=== PATIENT | female | born 1955 | race Caucasian/White ===

== ENCOUNTER 2017-05-29 08:21 | Inpatient (IN) ==
[2017-05-29] MEDS ORDERED: 0.9 % Sodium Chloride 1,000 ML IVC ONE ×2 (08:36→11:41)
[2017-05-29] MEDS ORDERED: *HR* HYDROmorphone (PF) 1 MG/ML SYRINGE IVP ONE ×3 (08:41→11:38)
[2017-05-29] MEDS ORDERED: Ondansetron 4 MG/2 ML VIAL IVP ONE (08:41)
--- NOTE | 2017-05-29 08:45 | Emergency Department Note ---
Disposition Clinical Impression: Perforated diverticulum, Diverticulitis, Pneumoperitoneum Disposition: Admitted As Inpatient Condition: Fair Time of Disposition: 11:55 General Adult HPI - General Chief complaint: ED Abdominal Pain Stated complaint: RUQ abd pain Time Seen by Provider: 05/29/17 08:28 Source: patient Limitations: no limitations Nursing Notes Reviewed: Yes Vital Signs Reviewed: Yes - History of Present Illness HPI Narrative: 61-year-old female who reports approximately 24 hours of right upper quadrant, epigastric, left upper quadrant abdominal pain. It is been constant since it began. She reports complete years ago she had pancreatitis and this feels similar to the prior episode. She admits to decrease in her oral intake. She admits to nausea but no vomiting. She had a bowel movement yesterday which was normal. She does admit to increased urinary frequency. She admits to shortness of breath due to pain with inspiration. The pain that she has is not in her chest but is in her epigastrium. She has not had a fever. She has no cardiac history and no history of DVT or PE. Radiation: non-radiation Pain Severity: severe Pain Scale: 10 Consistency: constant Improves with: nothing Worsens with: movement Associated symptoms: Reports: denies other symptoms Treatments Prior to Arrival: none - Related Data Home Medications Medication Instructions Recorded Confirmed Cyclobenzaprine [Flexeril] 10 mg PO TID 05/29/17 05/29/17 Ergocalciferol (VITAMIN D2) 50,000 unit PO DAILY 05/29/17 05/29/17 [Vitamin D2] Furosemide [Lasix] 20 mg PO DAILY 05/29/17 05/29/17 Levothyroxine [Synthroid] 50 mcg PO DAILY 05/29/17 05/29/17 Losartan [Cozaar] 25 mg PO DAILY 05/29/17 05/29/17 Oxycodone HCl/Acetaminophen 1 each PO Q4-6H PRN 05/29/17 05/29/17 [Percocet 10-325 mg Tablet] Potassium Chloride [K-Tab ER] 10 meq PO DAILY 05/29/17 05/29/17 Ranitidine HCl [Acid Bass Guitar Teacher] 150 mg PO BID 05/29/17 05/29/17 Allergies Allergy/AdvReac Type Severity Reaction Status Date / Time Penicillins Allergy Hives Verified 05/29/17 08:23 Sulfa (Sulfonamide Allergy Hives Verified 05/29/17 08:23 Antibiotics) All systems ED: reviewed and negative except as stated. Constitutional: Denies: fever ENT ED: Denies: throat pain Cardiovascular: Denies: chest pain Respiratory: Denies: cough, dyspnea Gastrointestinal: Reports: abdominal pain, nausea. Denies: vomiting, diarrhea Musculoskeletal: Denies: back pain Integumentary: Denies: rash Past Medical History - Past Medical History Medical history: Reports: hyperlipidemia, hypertension, renal disease, other Psychiatric history: Reports: no psych history - Social History Smoking Status: Never smoker Smokeless Tobacco Status: No Alcohol use: Reports: none Drug use: Reports: none Physical Exam - General Limitations: no limitations General appearance: alert - Head Head exam: atraumatic - Eye Eye exam: Present: normal appearance, PERRL - ENT ENT exam: normal exam, normal oropharynx - Neck Neck exam: Present: normal inspection, full ROM - Chest Chest inspection: Present: normal inspection - Respiratory Respiratory exam: Present: normal lung sounds bilaterally. Absent: respiratory distress - Cardiovascular Cardiovascular exam: Present: regular rate, normal rhythm - Abdominal Exam Abdominal exam: Present: soft, tenderness (epigastrum, RUQ, LUQ. Guarding but no rebound) - Extremities Exam Extremities exam: Present: normal inspection - Neurological Exam Neurological exam: Present: alert, oriented X3 - Psychiatric Psychiatric exam: Present: normal affect, normal mood - Skin Skin exam: Present: warm, dry Course Course Narrative: CT scan shows perforated sigmoid diverticulitis. Elevated WBC count and rebound tenderness. Called and spoke with Dr Machuca who will come see the patient. I ordered cipro/flagyl as the patient is allergic to sulfa and penicillins. Spoke with Dr Machuca who would like the patient admitted to the hospitalist service. He spoke with Dr Carpenter who accepted the patient. Vital Signs Temperature 98.5 F 05/29/17 08:22 Pulse Rate 98 05/29/17 08:22 Respiratory Rate 24 05/29/17 08:22 Blood Pressure 174/84 05/29/17 08:22 O2 Sat by Pulse Oximetry 97 05/29/17 08:22 Temperature 98.5 F 05/29/17 08:22 Pulse Rate 80 05/29/17 11:14 Respiratory Rate 24 05/29/17 08:22 Blood Pressure 135/71 05/29/17 11:14 O2 Sat by Pulse Oximetry 96 05/29/17 11:14 Oxygen Delivery Oxygen Delivery Room Air Medical Decision Making - Medical Records Medical records reviewed: Yes I reviewed the patient's medical records. - Lab Data Lab results reviewed: Yes I reviewed the patient's lab results. Result diagrams: 05/29/17 09:22 05/29/17 09:22 Lab Results 05/29/17 05/29/17 05/29/17 Range/Units 08:30 09:22 09:22 WBC 16.9 H (4.3-11.1) K/mcL RBC 4.18 (3.82-4.97) M/mcL Hgb 12.8 (11.5-15.4) g/dL Hct 38.3 (35.3-44.9) % MCV 91.6 (83.0-100.0) fL MCH 30.6 (28.0-33.3) pg MCHC 33.4 (31.6-35.5) g/dL RDW 13.5 (11.5-14.5) % Plt Count 204 (140-400) K/mcL MPV 9.1 L (9.4-12.4) fL Immature Gran % 0.6 (0-4) % Seg Neutrophils % 79.6 % Lymphocytes % 14.7 % Monocytes % 4.7 % Eosinophils % 0.2 % Basophils % 0.2 % Neutrophils # 13.4 H (1.6-8.9) K/mcL Lymphocytes # 2.5 (0.6-4.6) K/mcL Monocytes # 0.8 (0.0-1.3) K/mcL Eosinophils # 0.0 (0.0-0.6) K/mcL Basophils # 0.0 (0.0-0.2) K/mcL Sodium 137 (136-145) mEq/L Potassium 4.1 (3.5-5.1) mEq/L Chloride 106 (98-107) mEq/L Carbon Dioxide 22 L (23-29) mEq/L BUN 19 (8-23) mg/dL Creatinine 0.99 (0.60-1.20) mg/dL Est GFR ( Amer) > 60 (> 60) Est GFR (Non-Af Amer) 57 L (> 60) BUN/Creatinine Ratio 19 (6-26) Glucose 145 H (70-105) mg/dL Calculated Osmolality 289 (280-300) Calcium 8.9 (8.6-10.3) mg/dL Total Bilirubin 0.9 (0.3-1.0) mg/dL Direct Bilirubin 0.2 (0.0-0.2) mg/dL Indirect Bilirubin 0.7 (0.0-1.2) mg/dL AST 22 (13-39) Units/L ALT 25 (7-52) Units/L Alkaline Phosphatase 62 (34-104) Units/L Troponin I (< 0.04) ng/mL Serum Total Protein 6.6 (6.4-8.9) g/dL Albumin 3.6 (3.5-5.7) g/dL Globulin 3.0 (2.4-3.5) g/dL Albumin/Globulin Ratio 1.2 (1.1-2.2) Lipase 28 (11-82) Units/L Urine Color Yellow (Yellow) Urine Clarity Clear (Clear) Urine pH 6.0 (5.0-8.0) pH Units Ur Specific [place] 1.018 (1.010-1.025) Urine Protein Negative (Neg-Trace) mg/dL Urine Glucose (UA) Normal (Normal) mg/dL Urine Ketones Negative (Negative) mg/dL Urine Blood Negative (Negative) Urine Nitrite Negative (Negative) Urine Bilirubin Negative (Negative) Urine Urobilinogen Normal (Normal) mg/dL Ur Leukocyte Esterase Negative (Negative) Ur Culture Indicated? NO (NO) 05/29/17 Range/Units 09:22 WBC (4.3-11.1) K/mcL RBC (3.82-4.97) M/mcL Hgb (11.5-15.4) g/dL Hct (35.3-44.9) % MCV (83.0-100.0) fL MCH (28.0-33.3) pg MCHC (31.6-35.5) g/dL RDW (11.5-14.5) % Plt Count (140-400) K/mcL MPV (9.4-12.4) fL Immature Gran % (0-4) % Seg Neutrophils % % Lymphocytes % % Monocytes % % Eosinophils % % Basophils % % Neutrophils # (1.6-8.9) K/mcL Lymphocytes # (0.6-4.6) K/mcL Monocytes # (0.0-1.3) K/mcL Eosinophils # (0.0-0.6) K/mcL Basophils # (0.0-0.2) K/mcL Sodium (136-145) mEq/L Potassium (3.5-5.1) mEq/L Chloride (98-107) mEq/L Carbon Dioxide (23-29) mEq/L BUN (8-23) mg/dL Creatinine (0.60-1.20) mg/dL Est GFR ( Amer) (> 60) Est GFR (Non-Af Amer) (> 60) BUN/Creatinine Ratio (6-26) Glucose (70-105) mg/dL Calculated Osmolality (280-300) Calcium (8.6-10.3) mg/dL Total Bilirubin (0.3-1.0) mg/dL Direct Bilirubin (0.0-0.2) mg/dL Indirect Bilirubin (0.0-1.2) mg/dL AST (13-39) Units/L ALT (7-52) Units/L Alkaline Phosphatase (34-104) Units/L Troponin I < 0.03 (< 0.04) ng/mL Serum Total Protein (6.4-8.9) g/dL Albumin (3.5-5.7) g/dL Globulin (2.4-3.5) g/dL Albumin/Globulin Ratio (1.1-2.2) Lipase (11-82) Units/L Urine Color (Yellow) Urine Clarity (Clear) Urine pH (5.0-8.0) pH Units Ur Specific [place] (1.010-1.025) Urine Protein (Neg-Trace) mg/dL Urine Glucose (UA) (Normal) mg/dL Urine Ketones (Negative) mg/dL Urine Blood (Negative) Urine Nitrite (Negative) Urine Bilirubin (Negative) Urine Urobilinogen (Normal) mg/dL Ur Leukocyte Esterase (Negative) Ur Culture Indicated? (NO) - Radiology Data Radiology results reviewed: Yes I reviewed the patient's radiology results. - EKG Data EKG #1 EKG attestation: Yes I reviewed and interpreted this EKG. EKG shows normal: sinus rhythm Rhythm: NSR [place]/QRS: left axis deviation Interpretation: nonspecific ST-T wave changes Attestation Statement - Attestation Attestation: I examined this patient and my medical decision-making was reviewed with the Resident Physician. I agree with the documented findings, disposition and treatment plan as described except to the extent set forth below. Patient to the ED with abdominal pain. Onset yesterday. Upper abdominal pain she states feels like prior episodes of pancreatitis. She has had a cholecystectomy. She has also had dilatation of the pancreatic duct. On examination of his upper abdominal tenderness with guarding. Abdomen is soft. Plan. Patient's white blood cell count is elevated. Normal lipase. She had a CT abdomen and pelvis that shows perforated diverticulitis. She has been discussed with surgery. evaluated her in the ED. She has been started on IV antibiotic. She is admitted to the hospitalist. 35 minutes of critical care exclusive of separately billable procedures.
[2017-05-29 08:50] LABS: Bilirubin,Urine Negative (Negative); Blood,Urine Negative (Negative); Clarity,Urine Clear (Clear); Color,Urine Yellow (Yellow); Glucose,Urine (UA) Normal (Normal); Ketones,Urine Negative (Negative); Leukocyte Esterase,Urine Negative (Negative); Nitrite,Urine Negative (Negative); Protein,Urine Negative (Neg-Trace); Specific Gravity,Urine 1.018 (1.010-1.025); Urobilinogen,Urine Normal (Normal)
[2017-05-29 09:32] LABS: Basophils % 0.2 %; Eosinophils % 0.2 %; Hematocrit 38.3 % (35.3-44.9); Hemoglobin 12.8 g/dL (11.5-15.4); Immature Granulocytes % 0.6 % (0-4); Lymphocytes # 2.5 K/mcL (0.6-4.6); Lymphocytes % 14.7 %; Mean Corpuscular HGB Conc 33.4 g/dL (31.6-35.5); Mean Corpuscular Hemoglobin 30.6 pg (28.0-33.3); Mean Corpuscular Volume 91.6 fL (83.0-100.0); Mean Platelet Volume 9.1 fL (9.4-12.4); Monocytes # 0.8 K/mcL (0.0-1.3); Monocytes % 4.7 %; Neutrophils # 13.4 K/mcL (1.6-8.9); Platelet Count 204 K/mcL (140-400); Red Blood Count 4.18 M/mcL (3.82-4.97); Red Cell Distribution Width 13.5 % (11.5-14.5); Segmented Neutrophils % 79.6 %
[2017-05-29 09:49] LABS: Alanine Aminotransferase 25 Units/L (7-52); Albumin 3.6 g/dL (3.5-5.7); Albumin/Globulin Ratio 1.2 (1.1-2.2); Alkaline Phosphatase 62 Units/L (34-104); Aspartate Amino Transferase 22 Units/L (13-39); BUN/Creatinine Ratio 19 (6-26); Bilirubin,Direct 0.2 mg/dL (0.0-0.2); Bilirubin,Indirect 0.7 mg/dL (0.0-1.2); Bilirubin,Total 0.9 mg/dL (0.3-1.0); Blood Urea Nitrogen 19 mg/dL (8-23); Calcium 8.9 mg/dL (8.6-10.3); Carbon Dioxide 22 mEq/L (23-29); Chloride 106 mEq/L (98-107); Glucose 145 mg/dL (70-105); Lipase 28 Units/L (11-82); Osmolality,Calculated 289 (280-300); Potassium 4.1 mEq/L (3.5-5.1); Sodium 137 mEq/L (136-145); Total Protein 6.6 g/dL (6.4-8.9); eGFR For African Americans > 60 (> 60); eGFR For Non-African Americans 57 (> 60)
[2017-05-29] MEDS ORDERED: MetroNIDAZOLE 500 MG/100 ML 500 MG/100 ML BAG IVPB ONE (10:05)
[2017-05-29] MEDS ORDERED: 0.9 % Sodium Chloride 1,000 ML ONE (11:46)
--- NOTE | 2017-05-29 12:19 | General Surg History&Physical ---
Date of Encounter: 05/29/17 Time of Encounter: 11:00 History of Present Illness Chief complaint: Abdominal pain, acute perforated diverticulitis HPI: Ms. Mitchell is a 61 year old female who presents to the emergency department with approximately 24-hour history of progressive abdominal pain. Patient denies any fevers, chills, nausea or vomiting. Patient was found to have an elevated white count, 16.9 with 13.4% neutrophils and an abnormal CT showing Multiple diverticula of the left side of the colon particularly the sigmoid with wall thickening and extraluminal gas/pneumoperitoneum consistent with acute perforated diverticulitis. Urinary bladder wall thickening is also noted and suspected due to the adjacent diverticulitis. Surgical consultation was placed for these findings. Past medical history: Obesity, hypertension, hyperlipidemia, unspecified renal disease, pancreatitis related to gallstones Surgical history: Appendectomy, cholecystectomy, tubal ligation, ADRIANNA/BSO, left total knee 2 Allergies: Sulfa and penicillin Medications: Cyclobenzaprine 10 mg by mouth 3 times a day Ergocalciferol 50,000 units by mouth daily Furosemide 20 mg by mouth daily Levothyroxine 50 g by mouth daily Losartan 25 mg by mouth daily Oxycodone/acetaminophen 10/325 one every 4-6 hours as needed for pain Potassium chloride 10 mEq by mouth daily Ranitidine 150 mg by mouth twice a day Social history: Patient has never smoked; patient admits to rare alcoholic beverage; she has never used illicit drugs The patient is and lives at home with her spouse. History: Noncontributory Physical examination: Age-appropriate, obese female resting comfortably in her ED bed. 1.68 m tall, 122.47 kg, BMI 43.6 The patient is afebrile, 98.5; pulse 80, respirations 16-24, blood pressure 135/71 to 152/55 Skin: Warm, no obvious jaundice Lungs: Clear, no obvious abdominal pain with deep inspiration Cardiac: Regular rate, no appreciable murmurs Abdomen: Obese, diffusely tender but most pronounced in the left lower quadrant. No obvious rebound. No palpable hepatosplenomegaly or intra- abdominal masses. Abdominal exam is limited by the body habitus. I did not hear any active bowel sounds. Extremities: No obvious clubbing, cyanosis, or edema. Laboratories: White count 16.9, hemoglobin 12.8 with hematocrit 38.3. Platelet count 204,000. Differential notable for 13.4% neutrophils. Electrolytes, BUN, creatinine within normal limits. LFTs within normal limits Urinalysis: PH 6.0, specific gravity 1.018; no ketones, protein, glucose or significant cellular counts noted CT: Was reviewed with [facility] Impression: 61-year-old female with acute sigmoid diverticulitis with perforation. Fairly extensive diverticulosis primarily involving the sigmoid colon Obesity Hypertension Hyperlipidemia Remote history of pancreatitis, most likely consistent with gallstone pancreatitis Chronic pain Recommendations: I have discussed this extensively with the patient. We will try to defer surgery until the acute inflammatory changes are controlled. An open sigmoid colectomy has been discussed in detail. If surgery is completed in the next 2-3 days there is a high likelihood the patient will require A Emily procedure with end colostomy. If we are able to control the acute inflammation it may be possible to complete a primary resection. The patient is willing to like to defer surgery. The patient will be kept NPO; IV pain control via SOLDERER ASSEMBLY REPAIR should be considered IV fluids and IV antibiotics - Cipro 400 mg IV every 12 hours; metronidazole 500 mg every 6 hours has been initiated in the emergency department Don catheter for the apparent cystitis related to the adjacent diverticulitis I have discussed the patient's care with Dr. Carpenter, Hospitalist, he has graciously accepted the patient for medical management with surgical consultation I will follow along with you and complete daily examinations of the patient to determine her response to treatment Past Med Surg Social Fam HX - Past Medical History Medical history: hyperlipidemia, hypertension, renal disease, other Psychiatric history: no psych history - Social History Smoking Status: Never smoker Smokeless Tobacco Status: No Alcohol use: none Drug use: none Medications and Allergies Cyclobenzaprine [Flexeril] 10 mg PO TID 05/29/17 [History] Ergocalciferol (VITAMIN D2) [Vitamin D2] 50,000 unit PO DAILY 05/29/17 [History] Furosemide [Lasix] 20 mg PO DAILY 05/29/17 [History] Levothyroxine [Synthroid] 50 mcg PO DAILY 05/29/17 [History] Losartan [Cozaar] 25 mg PO DAILY 05/29/17 [History] Oxycodone HCl/Acetaminophen [Percocet 10-325 mg Tablet] 1 each PO Q4-6H PRN [History] Potassium Chloride [K-Tab ER] 10 meq PO DAILY 05/29/17 [History] Ranitidine HCl [Acid Camera Storage Clerk] 150 mg PO BID 05/29/17 [History] 3 Allergy/AdvReac Type Severity Reaction Status Date / Time Penicillins Allergy Hives Verified 05/29/17 08:23 Sulfa (Sulfonamide Allergy Hives Verified 05/29/17 08:23 Antibiotics) Review of Systems All systems PM: A 10-system review of systems was performed and is negative for pertinent findings except as documented above in the HPI. General Surgery Exam Initial Vital Signs Temp Pulse Resp BP Pulse Ox 98.5 F 98 24 174/84 97 05/29/17 08:22 05/29/17 08:22 05/29/17 08:22 05/29/17 08:22 05/29/17 08:22 Results - Labs 05/29/17 09:22 05/29/17 09:22 Abnormal lab results WBC 16.9 K/mcL (4.3-11.1) H 05/29/17 09:22 MPV 9.1 fL (9.4-12.4) L 05/29/17 09:22 Neutrophils # 13.4 K/mcL (1.6-8.9) H 05/29/17 09:22 Carbon Dioxide 22 mEq/L (23-29) L 05/29/17 09:22 Est GFR (Non-Af Amer) 57 (> 60) L 05/29/17 09:22 Glucose 145 mg/dL (70-105) H 05/29/17 09:22 All other labs normal.
[2017-05-29] MEDS ORDERED: Naloxone 0.4 MG/ML INJ IVP PRN (12:50)
--- NOTE | 2017-05-29 13:14 | Internal Med History&Physical ---
<Stefani Valdez S - Last Filed: 05/29/17 13:38> Date of Encounter: 05/29/17 Time of Encounter: 13:08 Assessment and Plan (1) Perforated diverticulum Current visit: Yes Status: Acute Surgical consult Continue Cipro and Flagyl NPO status IV fluids Pain control with HAND FINISHER as per surgical service Nausea control Intake and output (2) Pneumoperitoneum Current visit: Yes Status: Acute (3) HTN (hypertension) Current visit: Yes Status: Acute hold oral medications hydralixine IVP as needed for BP control Qualifiers: Hypertension type: essential hypertension Qualified Code(s): I10 - Essential (primary) hypertension (4) Hypothyroidism Current visit: Yes Status: Acute continue synthroid when able to take PO Qualifiers: Hypothyroidism type: unspecified Qualified Code(s): E03.9 - Hypothyroidism , unspecified Internal Medicine - H&P: HPI Chief complaint: abdominal pain Admitted From: Emergency Dept Plans for Post Hospital Care: Home History of present illness: Ms. Mitchell is a 61 year old female who presented to the emergency department with acute onset of abdominal pain started about 12 noon yesterday. She said it hurt so bad she could not breathe or walk. Her wanted her to come to the emergency room but she declined. She stated pain was so bad she sat up in a chair all night last night she states she did have a normal bowel movement yesterday. She has been nauseated with emesis of green bile. She denies any fever, chills, diarrhea or constipation, changes in voiding patterns, chest pain , shortness of breath, headache, or dizziness. Patient has a past medical history significant for hypertension, hyperlipidemia, gallstones pancreatitis, diverticulosis and obesity. Past surgical history appendectomy cholecystectomy and total abdominal hysterectomy. CT was obtained in the ED which showed multiple diverticuli in the left side of the colon with sigmoid wall thickening and extraluminal gas peritoneum consistent with acute perforated diverticulitis. Surgical consult was obtained and antibiotics have been started. White count in the ED was found to be elevated at 16.9. Dr. Carpenter and myself spoke with the patient and her at the bedside on 3B and they are understanding of the plan of care. All of their questions were answered and she is in no acute distress. She is having some problems with nausea and medication has been ordered. Past Med Surg Social Fam HX - Past Medical History Source: patient Medical history: hyperlipidemia, hypertension, renal disease, other Psychiatric history: no psych history - Past Surgical History Surgical History: appendectomy, cholecystectomy, knee replacement, ADRIANNA/BSO, other (Tonsillectomy, left total knee replacement 2) - Social History Smoking Status: Never smoker Smokeless Tobacco Status: No Alcohol use: none Drug use: none Internal Medicine - H&P: Meds Cyclobenzaprine [Flexeril] 10 mg PO TID 05/29/17 [History] Ergocalciferol (VITAMIN D2) [Vitamin D2] 50,000 unit PO DAILY 05/29/17 [History] Furosemide [Lasix] 20 mg PO DAILY 05/29/17 [History] Levothyroxine [Synthroid] 50 mcg PO DAILY 05/29/17 [History] Losartan [Cozaar] 25 mg PO DAILY 05/29/17 [History] Oxycodone HCl/Acetaminophen [Percocet 10-325 mg Tablet] 1 each PO Q4-6H PRN [History] Potassium Chloride [K-Tab ER] 10 meq PO DAILY 05/29/17 [History] Ranitidine HCl [Acid Leather Grader] 150 mg PO BID 05/29/17 [History] 3 Allergy/AdvReac Type Severity Reaction Status Date / Time Penicillins Allergy Hives Verified 05/29/17 08:23 Sulfa (Sulfonamide Allergy Hives Verified 05/29/17 08:23 Antibiotics) All Systems PM: A 10-system review of systems was performed and is negative for pertinent findings except as documented above in the HPI. - Constitutional Constitutional: as per HPI - EENT Eyes: no change in vision, no discharge, no pain, no photophobia Ears: no ear discharge, no ear pain, no tinnitus Nose, mouth and throat: no dysphagia, no nasal discharge, no neck pain, no sore throat - Cardiovascular Cardiovascular ROS IM: no chest pain, no diaphoresis, no dyspnea, no lightheadedness, no palpitations, no syncope - Respiratory Respiratory: no cough, no dyspnea, no wheezing, no excessive phlegm production - Gastrointestinal Gastrointestinal: abdominal pain, nausea, vomiting, no diarrhea, no hematemesis , no hematochezia, no melena - Genitourinary Genitourinary: no change in urinary stream, no dysuria, no flank pain, no hematuria Menstruation: post hysterectomy - Musculoskeletal Musculoskeletal ROS IM: no numbness, no tingling - Integumentary Integumentary IM: no rash, no unusual bruising - Neurological Neurological ROS: no confusion, no convulsions, no focal weakness, no numbness, no tingling, no tremor(s) - Hematologic/Lymphatic Hematologic/Lymphatic: no easy bruising - Constitutional Vitals: Temp Pulse Resp BP Pulse Ox 98.2 F 79 18 146/73 95 05/29/17 12:29 05/29/17 12:29 05/29/17 12:29 05/29/17 12:29 05/29/17 12:29 General appearance: Present: A&O X 3, morbidly obese, pleasant, no acute distress, answers questions appropriately - Head Head exam: Present: atraumatic, normocephalic - Eye Eye exam: Present: conjuntiva pink, sclera anicteric - Neck Neck exam general surgery: Present: supple, trachea midline. Absent: lymphadenopathy - Respiratory Respiratory exam: Present: CTAB. Absent: accessory muscle use, rales, rhonchi, wheezes - Cardiovascular Cardiovascular exam: Present: RRR, +S1, +S2. Absent: diastolic murmur, gallop, rubs, systolic murmur - GI/Abdominal GI/Abdominal exam: Present: guarding, soft, tenderness, no peritoneal signs. Absent: distended - Extremities Exam Extremities exam: Present: warm, radial pulses palpable and symmetrical. Absent : calf tenderness, cyanotic, pedal edema - Neurological Exam Neurological exam: Present: oriented X3, no focal deficits. Absent: pronater drift, facial droop, speech deficit - Skin Skin exam: Present: dry, intact, warm Internal Med - H&P Results - Labs CBC & Chem 7: 05/29/17 09:22 05/29/17 09:22 <Edwin Carpenter P - Last Filed: 05/30/17 19:43> Date of Encounter: 05/30/17 Internal Medicine - H&P: HPI History of present illness: Ms. Mitchell is a 61 year old female Past Med Surg Social Fam HX - Family History Mother Name: Peggy Swift Living Status: Age at : 70 Cause of : kidney failure Hx Family Cardiac Disorders: Yes All Systems PM: A 10-system review of systems was performed and is negative for pertinent findings except as documented above in the HPI. - Constitutional Vitals: Temp Pulse Resp BP Pulse Ox 100.0 F H 92 15 134/82 94 05/30/17 17:21 05/30/17 17:21 05/30/17 17:21 05/30/17 17:21 05/30/17 17:21 Internal Med - H&P Results - Labs CBC & Chem 7: 05/30/17 06:42 05/30/17 06:42 Labs: Short CBC 05/30/17 Range/Units 06:42 WBC 14.6 H (4.3-11.1) K/mcL Hgb 12.4 (11.5-15.4) g/dL Hct 37.3 (35.3-44.9) % Plt Count 219 (140-400) K/mcL Neutrophils # 10.5 H (1.6-8.9) K/mcL BMP 05/30/17 06:42 Sodium 138 Potassium 4.0 Chloride 106 Carbon Dioxide 25 BUN 14 Creatinine 1.00 Glucose 100 Calcium 8.8 Liver Function 05/30/17 Range/Units 06:42 Total Bilirubin 1.1 H (0.3-1.0) mg/dL AST 16 (13-39) Units/L ALT 21 (7-52) Units/L Alkaline Phosphatase 56 (34-104) Units/L Albumin 3.5 (3.5-5.7) g/dL - Impressions ITS Impressions Chest X-Ray 05/30/17 09:19 IMPRESSION: Stable portable study. D/ / Lissett Nunez Cha, MD / Lissett Nunez Cha, MD Interpreting Provider: Lissett Nunez Cha, MD - Attending Attestation I examined this patient and my medical decision-making was reviewed with the Resident Physician/NUTRITION COORDINATOR. I agree with the documented findings, disposition and treatment plan as described except to the extent set forth below.
[2017-05-29] MEDS: Ondansetron 4 MG/2 ML VIAL IVP PRN ×2 (14:12→18:08)
[2017-05-29] MEDS: 0.9 % Sodium Chloride 1,000 ML IVC SCH ×2 (14:13→20:33)
[2017-05-29] MEDS: *HR* HYDROmorphone 20 MG/20 ML PCA IVC PRN (15:44)
[2017-05-29] MEDS: MetroNIDAZOLE 500 MG/100 ML 500 MG/100 ML BAG IVPB SCH ×2 (15:50→20:53)
[2017-05-29] MEDS ORDERED: MetroNIDAZOLE 500 MG/100 ML 500 MG/100 ML BAG IVPB SCH ×2 (16:00→18:00)
[2017-05-29] MEDS: *HR* Promethazine 25 MG/ML VIAL IVP PRN (21:54)
[2017-05-30] MEDS: Ondansetron 4 MG/2 ML VIAL IVP PRN ×2 (00:53→19:48)
[2017-05-30] MEDS: MetroNIDAZOLE 500 MG/100 ML 500 MG/100 ML BAG IVPB SCH ×4 (03:19→19:48)
[2017-05-30] MEDS: *HR* Promethazine 25 MG/ML VIAL IVP PRN ×4 (04:30→23:39)
[2017-05-30 07:27] LABS: Basophils % 0.1 %; Eosinophils # 0.1 K/mcL (0.0-0.6); Eosinophils % 0.4 %; Hematocrit 37.3 % (35.3-44.9); Hemoglobin 12.4 g/dL (11.5-15.4); Immature Granulocytes % 0.5 % (0-4); Lymphocytes % 20.5 %; Mean Corpuscular HGB Conc 33.2 g/dL (31.6-35.5); Mean Corpuscular Hemoglobin 31.3 pg (28.0-33.3); Mean Corpuscular Volume 94.2 fL (83.0-100.0); Mean Platelet Volume 9.2 fL (9.4-12.4); Monocytes # 0.9 K/mcL (0.0-1.3); Monocytes % 6.2 %; Neutrophils # 10.5 K/mcL (1.6-8.9); Platelet Count 219 K/mcL (140-400); Red Blood Count 3.96 M/mcL (3.82-4.97); Red Cell Distribution Width 13.7 % (11.5-14.5); Segmented Neutrophils % 72.3 %
[2017-05-30 07:38] LABS: INR 1.3; Prothrombin Time 13.8 Seconds (9.4-12.1)
[2017-05-30 07:40] LABS: Activated Partial Thrombo Time 31.9 Seconds (26.0-36.0)
[2017-05-30 07:42] LABS: Alanine Aminotransferase 21 Units/L (7-52); Albumin 3.5 g/dL (3.5-5.7); Albumin/Globulin Ratio 1.1 (1.1-2.2); Alkaline Phosphatase 56 Units/L (34-104); Aspartate Amino Transferase 16 Units/L (13-39); BUN/Creatinine Ratio 14 (6-26); Bilirubin,Total 1.1 mg/dL (0.3-1.0); Blood Urea Nitrogen 14 mg/dL (8-23); Calcium 8.8 mg/dL (8.6-10.3); Carbon Dioxide 25 mEq/L (23-29); Chloride 106 mEq/L (98-107); Globulin 3.3 g/dL (2.4-3.5); Glucose 100 mg/dL (70-105); Magnesium 1.8 mg/dL (1.6-2.6); Osmolality,Calculated 287 (280-300); Phosphorous 2.7 mg/dL (2.7-4.5); Sodium 138 mEq/L (136-145); Total Protein 6.8 g/dL (6.4-8.9); eGFR For African Americans > 60 (> 60); eGFR For Non-African Americans 56 (> 60)
[2017-05-30] MEDS: D5% in 0.45% NACL 1,000 ML IVC SCH (11:02)
--- NOTE | 2017-05-30 11:03 | Internal Med Progress Note ---
Date of Encounter: 05/30/17 Time of Encounter: 09:30 - Assessment and plan (1) Perforated diverticulum Current Visit: Yes Status: Acute Assessment and plan: presented with abdominal pain. ABD CT with multiple left sided colon and sigmoid diverticula with wall thickening and extraluminal gas/pneumoperitoneum consistent with acute perforated diverticulitis. WBC 16K on admission, lactic acid normal. Evaluated by General Surgery who is attempting to defer surgery until acute inflammation has subsided. If surgery is required there is a high chance patient will require Emily procedure with end colostomy. Continue IV Cipro, metronidazole for now. Strict NPO. Pain control with CHUTE FEEDER. Hemodynamically stable, no tachycardia or hypotension. WBC trending down. Blood cultures pending. General surgery following (2) Cystitis Current Visit: Yes Status: Acute Assessment and plan: ABD CT with thickening of bladder wall and questionable incomplete distention versus cystitis; possibly secondary to diverticular disease. UA unremarkable and not indicative of UTI. Suspect abdominal CT finding secondary to perforated diverticulum. Continue IV Cipro which would cover cystitis (3) Hypoxia Current Visit: Yes Status: Acute Assessment and plan: with oxygen saturation down to 84% on room air. Morbid obesity likely playing a role however she is on CHUTE FEEDER pump and at risk for hypoventilation syndrome. Placed on continuous tele/pulse ox. Supplemental O2. CXR pending. Aggressive IS. (4) HTN (hypertension) Current Visit: Yes Status: Acute Assessment and plan: per hx. Holding home BP medications as she is NPO. Cont PRN hydralazine. BP controlled on 05/30 review Qualifiers: Hypertension type: essential hypertension Qualified Code(s): I10 - Essential (primary) hypertension (5) Hypothyroidism Current Visit: Yes Status: Acute Assessment and plan: per hx. Cont home levothyroxine when able to take PO Qualifiers: Hypothyroidism type: unspecified Qualified Code(s): E03.9 - Hypothyroidism , unspecified (6) Obesity Current Visit: Yes Status: Chronic Assessment and plan: BMI 46, weight 131kg. lifestyle modifications encouraged Qualifiers: Obesity type: due to excess calories Serious obesity comorbidity presence: with serious comorbidity Body mass index: BMI 40.0-44.9 Qualified Code(s): E66.01 - Morbid (severe) obesity due to excess calories; Z68.41 - Body mass index (BMI) 40.0-44.9, adult; Z68.41 - Body mass index (BMI) 40.0-44.9, adult; Z68.41 - Body mass index (BMI) 40.0-44.9, adult; Z68.41 - Body mass index (BMI) 40.0-44.9, adult (7) DVT prophylaxis Current Visit: Yes Status: Acute Assessment and plan: heparin - Time Spent With Patient 25 - 35 minutes - Subjective Interval history: Seen and examined at bedside; patient is new to me. Information obtained from chart review and patient report. She is complaining of abdominal pain, pain is located to entire abdomen worse and lower abdomen. CHUTE FEEDER is helping alleviate pain and pain worse with movement/palpation. No chest pain. Reports trouble taking a deep breath but denies shortness of breath. No fevers or chills. Discussed with Dr. Griffith and will transfer to [facility] for higher level of care and closer monitoring as she is on CHUTE FEEDER pump. - Constitutional Vitals: Temp Pulse Resp BP Pulse Ox 100.3 F H 97 16 129/93 93 05/30/17 06:58 05/30/17 06:58 05/30/17 06:58 05/30/17 06:58 05/30/17 06:58 General appearance: Present: A&O X 3, morbidly obese, pleasant, no acute distress, answers questions appropriately - Head Head exam: Present: atraumatic, normocephalic - Eye Eye exam: Present: PERRL, conjuntiva pink, sclera anicteric Pupils: Present: PERRL - Neck Neck exam general surgery: Present: supple, trachea midline. Absent: lymphadenopathy - Respiratory Respiratory exam: Present: CTAB. Absent: accessory muscle use, rales, rhonchi, wheezes - Cardiovascular Cardiovascular exam: Present: RRR, +S1, +S2. Absent: diastolic murmur, gallop, rubs, systolic murmur - GI/Abdominal GI/Abdominal exam: Present: normal bowel sounds, soft, tenderness, no peritoneal signs. Absent: distended - Extremities Exam Extremities exam: Present: warm, radial pulses palpable and symmetrical. Absent : calf tenderness, cyanotic, pedal edema - Neurological Exam Neurological exam: Present: CN II-XII intact, oriented X3, no focal deficits. Absent: pronater drift, facial droop, speech deficit - Skin Skin exam: Present: dry, intact Internal Medicine: Result - Labs CBC & Chem 7: 05/30/17 06:42 05/30/17 06:42 Labs: Short CBC 05/30/17 Range/Units 06:42 WBC 14.6 H (4.3-11.1) K/mcL Hgb 12.4 (11.5-15.4) g/dL Hct 37.3 (35.3-44.9) % Plt Count 219 (140-400) K/mcL Neutrophils # 10.5 H (1.6-8.9) K/mcL BMP 05/30/17 06:42 Sodium 138 Potassium 4.0 Chloride 106 Carbon Dioxide 25 BUN 14 Creatinine 1.00 Glucose 100 Calcium 8.8 Liver Function 05/30/17 Range/Units 06:42 Total Bilirubin 1.1 H (0.3-1.0) mg/dL AST 16 (13-39) Units/L ALT 21 (7-52) Units/L Alkaline Phosphatase 56 (34-104) Units/L Albumin 3.5 (3.5-5.7) g/dL - ABG Interpretation ABG results: PT/INR, D-dimer PT 13.8 Seconds (9.4-12.1) H 05/30/17 06:42 - Impressions Impressions Chest X-Ray 05/30/17 09:19 IMPRESSION: Stable portable study. D/ / Lissett Nunez Cha, MD / Lissett Nunez Cha, MD Interpreting Provider: Lissett Nunez Cha, MD Consult Discharge Plan - Plan Referrals: Kole Barksdale MD [Primary Care Provider] -
--- NOTE | 2017-05-30 12:20 | General Surgery Progress Note ---
Date of Encounter: 05/30/17 Time of Encounter: 12:06 Subjective Patient reports: feels better, still having pain, pain is less Narrative: General Surgery - Hospital Day #1 Patient resting comfortably in bed; indicates abd pain has diminished. No N/V Maximum temperature 100.3; HR 99, RR 16; BP stable 120/62. Mild hypoxia - resolved with supplemental oxygen via nasal cannula Lungs: clear to auscultation; no obvious pain with inspiration Abdomen: obese, tenderness LLQ and low midline (suprapubic). No detected masses, no rebound. Hypoactive bowel sounds. Urine output 1400mL for calendar day 05/29/2017; 450mL so far today Labs: WBC slightly improved to 14.6 (16.9 on presentation); Hgb 12.4/Hct 37.3; platelets 219,000. Neutrophils also improved 10.5% (13.4% previously) Impression: acute perforated sigmoid diverticulitis - slightly improved. obesity, hypertension, hyperlipidemia, unspecified renal disease - stable Plan: continue IV ATB, maintain NPO; continue BOOKKEEPER ASSISTANT hydromorphone for pain control. Will taper as abd pain diminishes. incentive spirometry and pulmonary toilet - encourage activity out of bed. If continues hypoxic then consider albuterol inhalation therapy. repeat CBC in AM May reduce IVF if appropriate per daily urine output Objective Vital Signs - Last 8 Hours Temp Pulse Resp BP Pulse Ox 05/30/17 11:47 98.4 F 99 16 120/62 95 05/30/17 06:58 100.3 F H 97 16 129/93 93 Intake and Output 05/29/17 05/30/17 05/30/17 23:59 07:59 15:59 Intake Total 100 / 100 300 / 300 Output Total 1400 / 1400 450 / 450 Balance -1300 / -1300 -150 / -150 Intake: IV Fluids 100 / 100 300 / 300 Cipro Premix 400 MG/200 ML 400 200 / 200 mg In 200 ml @ 200 mls/hr IVPB Q12H [facility] Rx#:[id number] Flagyl Premix 500 MG/100 ML 500 100 / 100 100 / 100 mg In 100 ml @ 100 mls/hr IVPB Q6H [facility] Rx#:[id number] Output: Catheter 1400 / 1400 450 / 450 Other: Weight 131.496 kg Blood Glucose* 138 107 140 Patient Weight 05/30/17 23:59 Weight 131.496 kg - Labs 05/30/17 06:42 05/30/17 06:42 Diabetes panel 05/30/17 Range/Units 06:42 Sodium 138 (136-145) mEq/L Potassium 4.0 (3.5-5.1) mEq/L Chloride 106 (98-107) mEq/L Carbon Dioxide 25 (23-29) mEq/L BUN 14 (8-23) mg/dL Creatinine 1.00 (0.60-1.20) mg/dL Glucose 100 (70-105) mg/dL Calcium 8.8 (8.6-10.3) mg/dL AST 16 (13-39) Units/L ALT 21 (7-52) Units/L Alkaline Phosphatase 56 (34-104) Units/L Albumin 3.5 (3.5-5.7) g/dL Calcium panel 05/30/17 Range/Units 06:42 Calcium 8.8 (8.6-10.3) mg/dL Phosphorus 2.7 (2.7-4.5) mg/dL Albumin 3.5 (3.5-5.7) g/dL Pituitary panel 05/30/17 Range/Units 06:42 Sodium 138 (136-145) mEq/L Potassium 4.0 (3.5-5.1) mEq/L Chloride 106 (98-107) mEq/L Carbon Dioxide 25 (23-29) mEq/L BUN 14 (8-23) mg/dL Creatinine 1.00 (0.60-1.20) mg/dL Glucose 100 (70-105) mg/dL Calcium 8.8 (8.6-10.3) mg/dL Adrenal panel 05/30/17 Range/Units 06:42 Sodium 138 (136-145) mEq/L Potassium 4.0 (3.5-5.1) mEq/L Chloride 106 (98-107) mEq/L Carbon Dioxide 25 (23-29) mEq/L BUN 14 (8-23) mg/dL Creatinine 1.00 (0.60-1.20) mg/dL Glucose 100 (70-105) mg/dL Calcium 8.8 (8.6-10.3) mg/dL Total Bilirubin 1.1 H (0.3-1.0) mg/dL AST 16 (13-39) Units/L ALT 21 (7-52) Units/L Alkaline Phosphatase 56 (34-104) Units/L Albumin 3.5 (3.5-5.7) g/dL Consult Discharge Plan - Plan Referrals: Kole Barksdale MD [Primary Care Provider] -
[2017-05-30] MEDS: *HR* Heparin 5,000 UNIT/ML VIAL SQ SCH ×2 (14:54→22:13)
[2017-05-31] MEDS: Ondansetron 4 MG/2 ML VIAL IVP PRN (03:03)
[2017-05-31] MEDS: MetroNIDAZOLE 500 MG/100 ML 500 MG/100 ML BAG IVPB SCH ×4 (03:03→21:03)
[2017-05-31 03:45] LABS: Hematocrit 37.1 % (35.3-44.9); Hemoglobin 12.2 g/dL (11.5-15.4); Mean Corpuscular HGB Conc 32.9 g/dL (31.6-35.5); Mean Corpuscular Hemoglobin 31.2 pg (28.0-33.3); Mean Corpuscular Volume 94.9 fL (83.0-100.0); Mean Platelet Volume 9.5 fL (9.4-12.4); Platelet Count 192 K/mcL (140-400); Red Blood Count 3.91 M/mcL (3.82-4.97); Red Cell Distribution Width 13.8 % (11.5-14.5)
[2017-05-31 04:09] LABS: Calcium 8.7 mg/dL (8.6-10.3); Potassium 3.9 mEq/L (3.5-5.1)
[2017-05-31] MEDS: D5% in 0.45% NACL 1,000 ML IVC SCH ×2 (05:15→18:08)
[2017-05-31] MEDS: *HR* Heparin 5,000 UNIT/ML VIAL SQ SCH ×3 (05:15→21:02)
[2017-05-31] MEDS ORDERED: Magnesium Sulfate 1 GM in D5% in Water 100 ML IVPB ONE (07:44)
[2017-05-31] MEDS: *HR* HYDROmorphone 20 MG/20 ML PCA IVC PRN (07:44)
[2017-05-31] MEDS: *HR* Promethazine 25 MG/ML VIAL IVP PRN ×3 (07:58→21:03)
--- NOTE | 2017-05-31 10:25 | Internal Med Progress Note ---
<Leland Larson - Last Filed: 05/31/17 13:00> Date of Encounter: 05/31/17 Time of Encounter: 10:23 - Assessment and plan (1) Perforated diverticulum Current Visit: Yes Status: Acute Assessment and plan: - ABD CT with multiple left sided colon and sigmoid diverticula with wall thickening and extraluminal gas/pneumoperitoneum consistent with acute perforated diverticulitis. - WBC 16 on admission, down trended to 12.9 this AM. lactic acid normal - General Surgery following, who is attempting to defer surgery until acute inflammation has subsided. If surgery is required there is a high chance patient will require Emily procedure with end colostomy. - Pt reports good pain control, mildly improved from yesterday. No further episodes of vomiting/nausea. - Fevers decreasing, high of 100 last night. No tachycardia. Plan - Has been receiving IV Cipro, metronidazole, day 3 - Dilaudid CHIEF INFORMATION SECURITY OFFICER pump for pain control. - NPO diet. - IVF at 100 mL/hour while NPO. - Strict NPO. Pain control with CHIEF INFORMATION SECURITY OFFICER. Blood cultures pending. General surgery following (2) Diverticulitis Current Visit: Yes Status: Acute Assessment and plan: as above (3) HTN (hypertension) Current Visit: Yes Status: Acute Assessment and plan: - BP well controlled at this visit. Most recent of 133/70 - Holding home BP meds due to NPO status Plan - Continue hydralazine IV PRN hypertension - Monitor given high amount of pain medications Qualifiers: Hypertension type: essential hypertension Qualified Code(s): I10 - Essential (primary) hypertension (4) Hypothyroidism Current Visit: Yes Status: Acute Assessment and plan: Continue home synthroid once able to tolerate PO meds. Qualifiers: Hypothyroidism type: unspecified Qualified Code(s): E03.9 - Hypothyroidism , unspecified (5) Obesity Current Visit: Yes Status: Chronic Assessment and plan: BMI 46, weight 131kg. lifestyle modifications encouraged as outpatient Qualifiers: Obesity type: due to excess calories Serious obesity comorbidity presence: with serious comorbidity Body mass index: BMI 40.0-44.9 Qualified Code(s): E66.01 - Morbid (severe) obesity due to excess calories; Z68.41 - Body mass index (BMI) 40.0-44.9, adult; Z68.41 - Body mass index (BMI) 40.0-44.9, adult; Z68.41 - Body mass index (BMI) 40.0-44.9, adult; Z68.41 - Body mass index (BMI) 40.0-44.9, adult (6) Hypoxia Current Visit: Yes Status: Acute Assessment and plan: - Oxygen saturation down to 84% on room air. - Morbid obesity likely playing a role however she is on CHIEF INFORMATION SECURITY OFFICER pump and at risk for hypoventilation syndrome vs pain induced hypoventilation - Currently tolerating 2L O2 at 96% - No reported underlying lung disease. Plan - Placed on continuous tele/pulse ox. Supplemental O2. Aggressive IS. - Will continue to monitor and attempt to wean. (7) DVT prophylaxis Current Visit: Yes Status: Acute Assessment and plan: heparin 5000 units q8 hours - Time Spent With Patient 25 - 35 minutes - Subjective Interval history: Patient was seen and examined at bedside this morning. She states that she is still a considerable amount of pain, located diffusely in her abdomen. She states she had some significant nausea yesterday however reports none this morning. She reports flatus but no bowel movement since Wednesday. States she has been using her Dilaudid CHIEF INFORMATION SECURITY OFFICER pump approximately twice per hour. Denies any symptoms of fevers, chills, chest pain, shortness of breath. She states that she spoke with Dr. Machuca Yesterday who told her that he would like to wait for the antibiotics to decrease inflammation before going to surgery. She states she does have an appetite, however she is nothing by mouth. - Constitutional Vitals: Temp Pulse Resp BP Pulse Ox 98.5 F 80 16 133/70 96 05/31/17 06:00 05/31/17 06:00 05/31/17 06:00 05/31/17 06:00 05/31/17 06:00 General appearance: Present: A&O X 3, morbidly obese, pleasant, no acute distress, answers questions appropriately Exam: Gen.: Vitals noted. No acute distress. AAOx3 HEENT: PERRL/EOMI, oropharynx clear, Normocephalic, atraumatic Cardiac: RRR, no murmur, +S1/S2 Pulmonary: CTA bilaterally, no wheezes, rales or rhonchi, equal chest expansion Abdomen: soft, moderately tender to palpation diffusely, hypoactive BS, no guarding or rebound present. MSK: ROM intact, no joint swelling noted Extremities: no BLE edema, nontender calf, no cyanosis or clubbing Neuro: A&Ox3, moves all extremities, no focal deficits Psych: Appropriate mood and behavior Internal Medicine: Result - Labs CBC & Chem 7: 05/31/17 02:58 05/31/17 02:58 Labs: Short CBC 05/31/17 Range/Units 02:58 WBC 12.9 H (4.3-11.1) K/mcL Hgb 12.2 (11.5-15.4) g/dL Hct 37.1 (35.3-44.9) % Plt Count 192 (140-400) K/mcL BMP 05/31/17 02:58 Sodium 139 Potassium 3.9 Chloride 107 Carbon Dioxide 22 L BUN 16 Creatinine 1.15 Glucose 116 H Calcium 8.7 - ABG Interpretation ABG results: PT/INR, D-dimer PT 13.8 Seconds (9.4-12.1) H 05/30/17 06:42 Consult Discharge Plan - Plan Referrals: Kole Barksdale MD [Primary Care Provider] - 06/08/17 9:45 am <Ru Welch - Last Filed: 05/31/17 17:22> Date of Encounter: 05/31/17 - Constitutional Vitals: Temp Pulse Resp BP Pulse Ox 98.3 F 80 15 135/77 98 05/31/17 15:00 05/31/17 15:00 05/31/17 15:00 05/31/17 15:00 05/31/17 15:00 Internal Medicine: Result - Labs CBC & Chem 7: 05/31/17 02:58 05/31/17 02:58 Labs: Short CBC 05/31/17 Range/Units 02:58 WBC 12.9 H (4.3-11.1) K/mcL Hgb 12.2 (11.5-15.4) g/dL Hct 37.1 (35.3-44.9) % Plt Count 192 (140-400) K/mcL BMP 05/31/17 02:58 Sodium 139 Potassium 3.9 Chloride 107 Carbon Dioxide 22 L BUN 16 Creatinine 1.15 Glucose 116 H Calcium 8.7 - ABG Interpretation ABG results: PT/INR, D-dimer PT 13.8 Seconds (9.4-12.1) H 05/30/17 06:42 - Attending Attestation I examined this patient and my medical decision-making was reviewed with the Resident Physician Dr. Larson . I agree with the documented findings, disposition and treatment plan as described except to the extent set forth below. Ms. Mitchell is a 61 year old female past medical history significant for hypertension, hyperlipidemia, gallstones pancreatitis, diverticulosis, chronic narcotic dependence and obesity. who presented to the emergency department with acute onset of abdominal pain. CT was obtained in the ED which showed multiple diverticuli in the left side of the colon with sigmoid wall thickening and extraluminal gas peritoneum consistent with acute perforated diverticulitis. Pt was seen by surgery who suggested medical management with IV abx, Iv fluids and IV analgesics. So far pt has been doing well. Her WBC trending down. Pain tolerable with current regimen Gen: A, A, O x 3 Chest: Diminished BS b/l basal regions Heart: S1 S2 + RRR No murmurs Abd: Soft, moderate tenderness LLQ, no guarding / no rigidity a/p 1. Acute perforated sigmoid diverticulitis Improving slowly had T max 100.3 last night cont IV abx and IV hydration NPO for now Cont Dilaudid CHIEF INFORMATION SECURITY OFFICER for pain management Pt is high risk for resp failure with CHIEF INFORMATION SECURITY OFFICER pump, so need close monitoring on Tele 2. Slightly elevated Cr could be dehydration inc IVF to 125cc/hr
--- NOTE | 2017-05-31 11:54 | General Surgery Progress Note ---
Date of Encounter: 05/31/17 Time of Encounter: 11:00 Subjective Patient reports: feels better, still having pain, pain is less Narrative: General Surgery - Hospital Day #2 Patient appears to be in good spirits. She indicates that she is feeling better. Pain has diminished Temperature slowly trending downward; maximum temperature 100.0; currently 98.5. Pulse 80, respirations 16, blood pressure stable at 133/70. Lungs: Clear, no obvious abdominal pain with deep inspiration Abdomen: Obese, persistent tenderness left lower quadrant and lower midline but it has diminished. No obvious rebound. No palpable masses. Hypoactive bowel sounds Urine output 700 mL for calendar day 05/30/17; 575 mL so far today Laboratories: White count continues to trend downward, 12.9; hemoglobin 12.2, hematocrit 37.1. Platelet count 192,000. Electrolytes remain within normal limits, creatinine has "creeped up " to 1.15. eGFR has fallen to 48 Impression: 61-year-old female with acute perforated sigmoid diverticulitis. Hospital day 2 - appears to be responding to IV antibiotics. Abdominal pain, leukocytosis slowly resolving. Decreased renal status Plan: Continue IV fluids at 100 mL per hour, monitor renal status Maintain NPO until abdominal pain resolved Check CBC with differential in a.m. Objective Vital Signs - Last 8 Hours Temp Pulse Resp BP Pulse Ox 05/31/17 06:00 98.5 F 80 16 133/70 96 Intake and Output 05/30/17 05/31/17 05/31/17 23:59 07:59 15:59 Intake Total 1100 / 1100 100 / 100 0 / 0 Output Total 250 / 250 575 / 575 Balance 850 / 850 -475 / -475 0 / 0 Intake: IV Fluids 1100 / 1100 100 / 100 D5% And 0.45% Nacl 1000 Ml Bag 1000 / 1000 1,000 ML @ 100 mls/hr IVC .Q10H [facility] Rx#:[id number] Flagyl Premix 500 MG/100 ML 500 100 / 100 100 / 100 mg In 100 ml @ 100 mls/hr IVPB Q6H [facility] Rx#:[id number] Oral 0 / 0 0 / 0 0 / 0 Output: Catheter 250 / 250 575 / 575 Other: Meal Breakfast Percent of Meal Consumed 0% Blood Glucose* 141 110 - Labs 05/31/17 02:58 05/31/17 02:58 Diabetes panel 05/31/17 Range/Units 02:58 Sodium 139 (136-145) mEq/L Potassium 3.9 (3.5-5.1) mEq/L Chloride 107 (98-107) mEq/L Carbon Dioxide 22 L (23-29) mEq/L BUN 16 (8-23) mg/dL Creatinine 1.15 (0.60-1.20) mg/dL Glucose 116 H (70-105) mg/dL Calcium 8.7 (8.6-10.3) mg/dL Calcium panel 05/31/17 Range/Units 02:58 Calcium 8.7 (8.6-10.3) mg/dL Pituitary panel 05/31/17 Range/Units 02:58 Sodium 139 (136-145) mEq/L Potassium 3.9 (3.5-5.1) mEq/L Chloride 107 (98-107) mEq/L Carbon Dioxide 22 L (23-29) mEq/L BUN 16 (8-23) mg/dL Creatinine 1.15 (0.60-1.20) mg/dL Glucose 116 H (70-105) mg/dL Calcium 8.7 (8.6-10.3) mg/dL Adrenal panel 05/31/17 Range/Units 02:58 Sodium 139 (136-145) mEq/L Potassium 3.9 (3.5-5.1) mEq/L Chloride 107 (98-107) mEq/L Carbon Dioxide 22 L (23-29) mEq/L BUN 16 (8-23) mg/dL Creatinine 1.15 (0.60-1.20) mg/dL Glucose 116 H (70-105) mg/dL Calcium 8.7 (8.6-10.3) mg/dL Consult Discharge Plan - Plan Referrals: Kole Barksdale MD [Primary Care Provider] - 06/08/17 9:45 am
--- NOTE | 2017-05-31 15:22 | Electrocardiograph Report ---
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
[2017-05-31] MEDS: Pantoprazole 40 MG VIAL IVP SCH (17:56)
[2017-06-01 05:25] LABS: BUN/Creatinine Ratio 12 (6-26); Basophils % 0.4 %; Blood Urea Nitrogen 11 mg/dL (8-23); Calcium 8.5 mg/dL (8.6-10.3); Carbon Dioxide 22 mEq/L (23-29); Chloride 105 mEq/L (98-107); Eosinophils # 0.4 K/mcL (0.0-0.6); Eosinophils % 3.5 %; Glucose 98 mg/dL (70-105); Hematocrit 35.2 % (35.3-44.9); Hemoglobin 11.5 g/dL (11.5-15.4); Immature Granulocytes % 0.7 % (0-4); Lymphocytes # 2.3 K/mcL (0.6-4.6); Lymphocytes % 21.9 %; Mean Corpuscular HGB Conc 32.7 g/dL (31.6-35.5); Mean Corpuscular Hemoglobin 30.6 pg (28.0-33.3); Mean Corpuscular Volume 93.6 fL (83.0-100.0); Mean Platelet Volume 9.3 fL (9.4-12.4); Monocytes % 9.4 %; Neutrophils # 6.8 K/mcL (1.6-8.9); Osmolality,Calculated 287 (280-300); Platelet Count 219 K/mcL (140-400); Potassium 3.9 mEq/L (3.5-5.1); Red Blood Count 3.76 M/mcL (3.82-4.97); Red Cell Distribution Width 13.2 % (11.5-14.5); Segmented Neutrophils % 64.1 %; Sodium 139 mEq/L (136-145); eGFR For African Americans > 60 (> 60); eGFR For Non-African Americans > 60 (> 60)
[2017-06-01] MEDS: MetroNIDAZOLE 500 MG/100 ML 500 MG/100 ML BAG IVPB SCH ×4 (05:36→23:11)
[2017-06-01] MEDS: *HR* Heparin 5,000 UNIT/ML VIAL SQ SCH ×3 (05:36→23:15)
[2017-06-01] MEDS: *HR* Promethazine 25 MG/ML VIAL IVP PRN ×3 (05:37→18:04)
[2017-06-01] MEDS: D5% in 0.45% NACL 1,000 ML IVC SCH (09:26)
[2017-06-01] MEDS: Pantoprazole 40 MG VIAL IVP SCH (09:26)
--- NOTE | 2017-06-01 10:12 | Internal Med Progress Note ---
<Leland Larson - Last Filed: 06/01/17 13:46> Date of Encounter: 06/01/17 Time of Encounter: 10:09 - Assessment and plan (1) Perforated diverticulum Current Visit: Yes Status: Acute Assessment and plan: - ABD CT with multiple left sided colon and sigmoid diverticula with wall thickening and extraluminal gas/pneumoperitoneum consistent with acute perforated diverticulitis. - WBC 16 on admission, down trended to 10.5 this AM. lactic acid normal - General Surgery following, who is attempting to defer surgery until acute inflammation has subsided. If surgery is required there is a high chance patient will require Emily procedure with end colostomy. - Pt reports good pain control with PRESS CATCHER, mildly improved from yesterday. No further episodes of vomiting/nausea. - Afebrile. No tachycardia. Plan - Has been receiving IV Cipro, metronidazole, day 4 - Dilaudid PRESS CATCHER pump for pain control. - NPO diet, defer advancement to surgery - IVF at 100 mL/hour while NPO. - Pain control with PRESS CATCHER. Blood cultures pending. General surgery following - Will transfer to today as she no longer requires telemetry. (2) Diverticulitis Current Visit: Yes Status: Acute Assessment and plan: as above (3) HTN (hypertension) Current Visit: Yes Status: Acute Assessment and plan: - BP well controlled at this visit. Most recent of 130/73 - Holding home BP meds due to NPO status Plan - Continue hydralazine IV PRN hypertension - Monitor given high amount of pain medications Qualifiers: Hypertension type: essential hypertension Qualified Code(s): I10 - Essential (primary) hypertension (4) Hypothyroidism Current Visit: Yes Status: Acute Assessment and plan: Continue home synthroid once able to tolerate PO meds. Qualifiers: Hypothyroidism type: unspecified Qualified Code(s): E03.9 - Hypothyroidism , unspecified (5) Obesity Current Visit: Yes Status: Chronic Assessment and plan: BMI 46, weight 131kg. lifestyle modifications encouraged as outpatient Qualifiers: Obesity type: due to excess calories Serious obesity comorbidity presence: without serious comorbidity Body mass index: BMI 45.0-49.9 Qualified Code(s) : E66.01 - Morbid (severe) obesity due to excess calories; Z68.42 - Body mass index (BMI) 45.0-49.9, adult; Z68.42 - Body mass index (BMI) 45.0-49.9, adult; Z68.42 - Body mass index (BMI) 45.0-49.9, adult; Z68.42 - Body mass index (BMI) 45.0-49.9, adult (6) Hypoxia Current Visit: Yes Status: Acute Assessment and plan: - Oxygen saturation down to 84% on room air on admission. - Morbid obesity likely playing a role however she is on PRESS CATCHER pump and at risk for hypoventilation syndrome vs pain induced hypoventilation - Currently tolerating 2L O2 at 96% - No reported underlying lung disease. Plan - Placed on continuous tele/pulse ox. Supplemental O2. Aggressive IS. - Will continue to monitor and attempt to wean. (7) DVT prophylaxis Current Visit: Yes Status: Acute Assessment and plan: heparin 5000 units q8 hours - Time Spent With Patient less than 15 minutes - Subjective Interval history: Patient was seen and examined at bedside this morning. She states that she is still a considerable amount of pain, located diffusely in her abdomen. She states that she had a rough night, as her IV was lost and she went without pain meds for 3 hours but is feeling alright this morning. She is having flatus but no bowel movements. Has an appetite. No nausea or vomiting this morning. - Constitutional Vitals: Temp Pulse Resp BP Pulse Ox 98.9 F 84 16 130/73 92 06/01/17 05:32 06/01/17 05:32 06/01/17 05:32 06/01/17 05:32 06/01/17 05:32 General appearance: Present: A&O X 3, morbidly obese, pleasant, no acute distress, answers questions appropriately Exam: Gen.: Vitals noted. No acute distress. AAOx3 HEENT: PERRL/EOMI, oropharynx clear, Normocephalic, atraumatic Cardiac: RRR, no murmur, +S1/S2 Pulmonary: CTA bilaterally, no wheezes, rales or rhonchi, equal chest expansion Abdomen: soft, diffusely tender most prominent in RUQ, BS noted, involuntary guarding and rebound tenderness present. MSK: ROM intact, no joint swelling noted Extremities: no BLE edema, nontender calf, no cyanosis or clubbing Neuro: A&Ox3, moves all extremities, no focal deficits Psych: Appropriate mood and behavior Internal Medicine: Result - Labs CBC & Chem 7: 06/01/17 04:42 06/01/17 04:42 Labs: Short CBC 06/01/17 Range/Units 04:42 WBC 10.5 (4.3-11.1) K/mcL Hgb 11.5 (11.5-15.4) g/dL Hct 35.2 L (35.3-44.9) % Plt Count 219 (140-400) K/mcL Neutrophils # 6.8 (1.6-8.9) K/mcL BMP 06/01/17 04:42 Sodium 139 Potassium 3.9 Chloride 105 Carbon Dioxide 22 L BUN 11 Creatinine 0.94 Glucose 98 Calcium 8.5 L - ABG Interpretation ABG results: PT/INR, D-dimer PT 13.8 Seconds (9.4-12.1) H 05/30/17 06:42 Consult Discharge Plan - Plan Referrals: Kole Barksdale MD [Primary Care Provider] - 06/08/17 9:45 am <John Browne - Last Filed: 06/01/17 18:17> Date of Encounter: 06/01/17 - Assessment and plan (1) Diverticulitis large intestine Current Visit: Yes Status: Acute Qualifiers: Diverticulitis bleeding: without bleeding Diverticulitis complication: with perforation Qualified Code(s): K57.20 - Diverticulitis of large intestine with perforation and abscess without bleeding (2) HTN (hypertension) Current Visit: Yes Status: Acute Qualifiers: Hypertension type: essential hypertension Qualified Code(s): I10 - Essential (primary) hypertension (3) Hypothyroidism Current Visit: Yes Status: Acute Qualifiers: Hypothyroidism type: acquired Qualified Code(s): E03.9 - Hypothyroidism, unspecified (4) Morbid obesity with BMI of 45.0-49.9, adult Current Visit: Yes Status: Acute - Constitutional Vitals: Temp Pulse Resp BP Pulse Ox 98.5 F 78 16 124/73 93 06/01/17 15:05 06/01/17 15:05 06/01/17 15:05 06/01/17 15:05 06/01/17 15:05 Internal Medicine: Result - Labs CBC & Chem 7: 06/01/17 04:42 06/01/17 04:42 Labs: Short CBC 06/01/17 Range/Units 04:42 WBC 10.5 (4.3-11.1) K/mcL Hgb 11.5 (11.5-15.4) g/dL Hct 35.2 L (35.3-44.9) % Plt Count 219 (140-400) K/mcL Neutrophils # 6.8 (1.6-8.9) K/mcL BMP 06/01/17 04:42 Sodium 139 Potassium 3.9 Chloride 105 Carbon Dioxide 22 L BUN 11 Creatinine 0.94 Glucose 98 Calcium 8.5 L - ABG Interpretation ABG results: PT/INR, D-dimer PT 13.8 Seconds (9.4-12.1) H 05/30/17 06:42 - Attending Attestation I examined this patient and my medical decision-making was reviewed with the Resident Physician on 06/01/17. I agree with the documented findings, disposition and treatment plan as described except to the extent set forth below. Ms Mitchell is currently admitted for acute perforated diverticulum. She remains moderate to high risk due to potential for worsening clinical status. Ms Mitchell is still having some LLQ pain. No fever or chills. No CP or SOB. Hungry. Exam Alert Comfortable Mucus membranes dry Heart reg Lungs clear Abd soft with tenderness LLQ area I/P 1. Perforated diverticulum 2. Diverticulosis Further diagnoses and plan as above.
--- NOTE | 2017-06-01 13:51 | General Surgery Progress Note ---
Date of Encounter: 06/01/17 Time of Encounter: 13:47 Subjective Patient reports: feels better, pain is less Narrative: General Surgery - Hospital Day #3 Patient feeling much improved; abdominal pain significantly diminished. The patient has been afebrile for the last 24 hours; pulse 76, respirations 18, blood pressure 124/77 Lungs: Clear Abdomen: Soft with minimal persistent tenderness left lower quadrant. No obvious intra-abdominal masses. No rebound. Laboratories: Leukocytosis resolved, white count currently 10.5, hemoglobin 11.5 , hematocrit 35.2. Neutrophilia resolved, currently within normal limits at 6.8 Electrolytes, BUN, creatinine - normal with creatinine improving to 0.94. eGFR is also rebounded to greater than 60. Impression: 61-year-old female with acute perforated sigmoid diverticulitis; improved with aggressive IV antibiotic therapy. Abdominal pain significantly improved; leukocytosis and neutrophilia resolved Renal status has returned to normal Recommendations: Allow clear liquids with nutritional supplements per dietary If tolerates clears with no recurrent abdominal pain - can consider changing IV antibiotics to oral Repeat CT abdomen/pelvis in AM Remove Don Objective Vital Signs - Last 8 Hours Temp Pulse Resp BP Pulse Ox 06/01/17 11:49 98.2 F 76 18 124/77 96 Intake and Output 05/31/17 06/01/17 06/01/17 23:59 07:59 15:59 Intake Total 400 / 400 1000 / 1000 Output Total 1150 / 1150 525 / 525 Balance 400 / 400 -150 / -150 -525 / -525 Intake: IV Fluids 400 / 400 1000 / 1000 D5% And 0.45% Nacl 1000 Ml Bag 1000 / 1000 1,000 ML @ 125 mls/hr IVC .Q8H [facility] Rx#:[id number] Cipro Premix 400 MG/200 ML 400 200 / 200 mg In 200 ml @ 200 mls/hr IVPB Q12H [facility] Rx#:[id number] Flagyl Premix 500 MG/100 ML 500 200 / 200 mg In 100 ml @ 100 mls/hr IVPB Q6H [facility] Rx#:[id number] Oral 0 / 0 0 / 0 Output: Catheter 1150 / 1150 525 / 525 Other: Meal Dinner Percent of Meal Consumed 0% Weight 127.8 kg Blood Glucose* 105 112 106 Patient Weight 06/01/17 23:59 Weight 127.8 kg - Labs 06/01/17 04:42 06/01/17 04:42 Diabetes panel 06/01/17 Range/Units 04:42 Sodium 139 (136-145) mEq/L Potassium 3.9 (3.5-5.1) mEq/L Chloride 105 (98-107) mEq/L Carbon Dioxide 22 L (23-29) mEq/L BUN 11 (8-23) mg/dL Creatinine 0.94 (0.60-1.20) mg/dL Glucose 98 (70-105) mg/dL Calcium 8.5 L (8.6-10.3) mg/dL Calcium panel 06/01/17 Range/Units 04:42 Calcium 8.5 L (8.6-10.3) mg/dL Pituitary panel 06/01/17 Range/Units 04:42 Sodium 139 (136-145) mEq/L Potassium 3.9 (3.5-5.1) mEq/L Chloride 105 (98-107) mEq/L Carbon Dioxide 22 L (23-29) mEq/L BUN 11 (8-23) mg/dL Creatinine 0.94 (0.60-1.20) mg/dL Glucose 98 (70-105) mg/dL Calcium 8.5 L (8.6-10.3) mg/dL Adrenal panel 06/01/17 Range/Units 04:42 Sodium 139 (136-145) mEq/L Potassium 3.9 (3.5-5.1) mEq/L Chloride 105 (98-107) mEq/L Carbon Dioxide 22 L (23-29) mEq/L BUN 11 (8-23) mg/dL Creatinine 0.94 (0.60-1.20) mg/dL Glucose 98 (70-105) mg/dL Calcium 8.5 L (8.6-10.3) mg/dL Consult Discharge Plan - Plan Referrals: Kole Barksdale MD [Primary Care Provider] - 06/08/17 9:45 am
[2017-06-01] MEDS ORDERED: D5% in 0.45% NACL 1,000 ML IVC SCH (13:54)
[2017-06-01] MEDS: Ondansetron 4 MG/2 ML VIAL IVP PRN (23:01)
[2017-06-01] MEDS: 0.9 % Sodium Chloride 1,000 ML IVC SCH (23:08)
[2017-06-01] MEDS: *HR* HYDROmorphone 20 MG/20 ML PCA IVC PRN (23:40)
[2017-06-02] MEDS: *HR* Promethazine 25 MG/ML VIAL IVP PRN ×4 (02:01→21:08)
[2017-06-02] MEDS: MetroNIDAZOLE 500 MG/100 ML 500 MG/100 ML BAG IVPB SCH ×4 (04:46→21:16)
[2017-06-02 05:11] LABS: Hematocrit 34.7 % (35.3-44.9); Hemoglobin 11.2 g/dL (11.5-15.4); Mean Corpuscular HGB Conc 32.3 g/dL (31.6-35.5); Mean Corpuscular Hemoglobin 30.4 pg (28.0-33.3); Mean Platelet Volume 8.7 fL (9.4-12.4); Platelet Count 233 K/mcL (140-400); Red Blood Count 3.69 M/mcL (3.82-4.97); Red Cell Distribution Width 13.2 % (11.5-14.5)
[2017-06-02 05:28] LABS: BUN/Creatinine Ratio 11 (6-26); Blood Urea Nitrogen 10 mg/dL (8-23); Calcium 8.4 mg/dL (8.6-10.3); Carbon Dioxide 28 mEq/L (23-29); Chloride 104 mEq/L (98-107); Glucose 136 mg/dL (70-105); Osmolality,Calculated 285 (280-300); Potassium 3.5 mEq/L (3.5-5.1); Sodium 137 mEq/L (136-145); eGFR For African Americans > 60 (> 60); eGFR For Non-African Americans 59 (> 60)
[2017-06-02] MEDS: *HR* Heparin 5,000 UNIT/ML VIAL SQ SCH ×3 (06:30→21:19)
[2017-06-02] MEDS: Pantoprazole 40 MG VIAL IVP SCH (11:13)
[2017-06-02] MEDS: Ondansetron 4 MG/2 ML VIAL IVP PRN (11:16)
[2017-06-02] MEDS ORDERED: D10% in Water 500 ML IVC PRN (15:01)
--- NOTE | 2017-06-02 15:23 | General Surgery Progress Note ---
Date of Encounter: 06/02/17 Time of Encounter: 14:30 Subjective Narrative: General Surgery - POD #4 Patient remains afebrile and hemodynamically stable; currently 98.5, pulse 74 , respirations 16, blood pressure 104/53. Patient has been nauseated since initiating clear liquids; very little oral intake. Patient has noted urinary urgency following removal of the Don. This urgency is making it difficult for the patient to read about an time to void. Because of these symptoms and the CT findings, we will replace the Don catheter. Lungs: Clear Abdomen: Obese, likely at baseline but noted suprapubic tenderness as well as left lower quadrant tenderness. CT abdomen and pelvis completed this morning was reviewed with [facility] - findings include gravity dependent atelectasis right lower lobe and additional bilateral linear opacities suggestive of scarring and/or subsegmental atelectasis. Diffuse hepatic steatosis with focal fatty sparing adjacent to the emmy hepatis. Minimal right hydronephrosis and mild right hydroureter which has developed since the CT completed on admission. This is likely due to the ureteral inflammation in the pelvis. Interval increase of trace free intraperitoneal fluid in the pelvis, near complete resolution of the pneumoperitoneum with a few persistent foci free intraperitoneal air. She is also evidence of cystitis as noted on the initial CT. This is again likely due to the adjacent pelvic inflammation related to the sigmoid diverticulitis. Laboratories: Stable white count at 8.3, hemoglobin 11.2 with hematocrit 34.7. Differential was not obtained Electrolytes, BUN, creatinine stable and within normal limits Impression: 61-year-old female with acute perforated sigmoid diverticulitis. Improved with aggressive IV antibiotics. The improvement is evident on the CT completed earlier today. Interval development of right mild hydronephrosis related to hair - ureteral inflammation in the pelvis. Nausea and anorexia possibly due to metronidazole versus the resolving sigmoid diverticulitis. There are sufficient changes and persistent disease warranting surgical intervention rather than deferring surgery for 4-6 weeks. The nausea and anorexia is interfering with nutrition and will necessitate parenteral nutrition. I have discussed this with dietary as well as the IV access team. The patient's extended peripheral IV will be changed over to a multilumen PICC TPN will be initiated in preparation for surgery which has been scheduled . Neurology consultation has been placed to assess and treat the newly detected right mild hydronephrosis. Objective Vital Signs - Last 8 Hours Temp Pulse Resp BP Pulse Ox 06/02/17 12:05 98.5 F 74 16 104/53 93 06/02/17 08:56 96 06/02/17 07:32 98.2 F 79 16 107/57 95 Intake and Output 06/01/17 06/02/17 06/02/17 23:59 07:59 15:59 Intake Total 120 / 120 400 / 400 540 / 540 Output Total 800 / 800 100 / 100 500 / 500 Balance -680 / -680 300 / 300 40 / 40 Intake: IV Fluids 400 / 400 300 / 300 Cipro Premix 400 MG/200 ML 400 200 / 200 200 / 200 mg In 200 ml @ 200 mls/hr IVPB Q12H [facility] Rx#:[id number] Flagyl Premix 500 MG/100 ML 500 200 / 200 100 / 100 mg In 100 ml @ 100 mls/hr IVPB Q6H [facility] Rx#:[id number] Oral 120 / 120 240 / 240 Output: Urine 500 / 500 Emesis 100 / 100 Catheter 800 / 800 Other: # Voids 1 1 - Labs 06/02/17 05:00 06/02/17 05:00 Diabetes panel 06/02/17 Range/Units 05:00 Sodium 137 (136-145) mEq/L Potassium 3.5 (3.5-5.1) mEq/L Chloride 104 (98-107) mEq/L Carbon Dioxide 28 (23-29) mEq/L BUN 10 (8-23) mg/dL Creatinine 0.95 (0.60-1.20) mg/dL Glucose 136 H (70-105) mg/dL Calcium 8.4 L (8.6-10.3) mg/dL Calcium panel 06/02/17 Range/Units 05:00 Calcium 8.4 L (8.6-10.3) mg/dL Pituitary panel 06/02/17 Range/Units 05:00 Sodium 137 (136-145) mEq/L Potassium 3.5 (3.5-5.1) mEq/L Chloride 104 (98-107) mEq/L Carbon Dioxide 28 (23-29) mEq/L BUN 10 (8-23) mg/dL Creatinine 0.95 (0.60-1.20) mg/dL Glucose 136 H (70-105) mg/dL Calcium 8.4 L (8.6-10.3) mg/dL Adrenal panel 06/02/17 Range/Units 05:00 Sodium 137 (136-145) mEq/L Potassium 3.5 (3.5-5.1) mEq/L Chloride 104 (98-107) mEq/L Carbon Dioxide 28 (23-29) mEq/L BUN 10 (8-23) mg/dL Creatinine 0.95 (0.60-1.20) mg/dL Glucose 136 H (70-105) mg/dL Calcium 8.4 L (8.6-10.3) mg/dL Consult Discharge Plan - Plan Referrals: Kole Barksdale MD [Primary Care Provider] - 06/08/17 9:45 am
[2017-06-02] MEDS ORDERED: Lidocaine -MPF 1% 5 ML AMPUL INFILT ONE (16:12)
[2017-06-02] MEDS: 0.9 % Sodium Chloride 1,000 ML IVC SCH (16:34)
--- NOTE | 2017-06-02 16:50 | Internal Med Progress Note ---
<MilindLeland alford - Last Filed: 06/02/17 16:44> Date of Encounter: 06/02/17 Time of Encounter: 16:45 - Assessment and plan (1) Perforated diverticulum Current Visit: Yes Status: Acute Assessment and plan: - ABD CT with multiple left sided colon and sigmoid diverticula with wall thickening and extraluminal gas/pneumoperitoneum consistent with acute perforated diverticulitis. - Repeat abdominal CT on 06/02/17 showing 1.17 cm x 3.9 cm x 2.7 cm abscess inferior to the proximal sigmoid colon, increased inflammation of the mesentery , new minimal right hydronephrosis suggestive of uriritis - WBC 16 on admission, down trended to 8.3 this AM. lactic acid normal - General Surgery following, who is attempting to defer surgery until acute inflammation has subsided. If surgery is required there is a high chance patient will require Emily procedure with end colostomy. - Pt reports good pain control with SAMPLE BOOK MAKER, mildly improved from yesterday. No further episodes of vomiting/nausea. - Afebrile. No tachycardia. - Significant nausea with enteral nutrition Plan - Has been receiving IV Cipro, metronidazole, day 5 - Dilaudid SAMPLE BOOK MAKER pump for pain control. - Pain control with SAMPLE BOOK MAKER. Blood cultures pending. General surgery following - We will place PICC line and start TPN nutrition today - Per surgery, is scheduled for procedure on 06/04/17 - Will transfer to today as she no longer requires telemetry when bed is available (2) Diverticulitis Current Visit: Yes Status: Acute Assessment and plan: as above (3) HTN (hypertension) Current Visit: Yes Status: Acute Assessment and plan: - BP well controlled at this visit. Most recent of 107/57 - Holding home BP meds due to NPO status Plan - Continue hydralazine IV PRN hypertension - Monitor given high amount of pain medications Qualifiers: Hypertension type: essential hypertension Qualified Code(s): I10 - Essential (primary) hypertension (4) Hypothyroidism Current Visit: Yes Status: Acute Assessment and plan: Continue home synthroid once able to tolerate PO meds. Qualifiers: Hypothyroidism type: acquired Qualified Code(s): E03.9 - Hypothyroidism, unspecified (5) Obesity Current Visit: Yes Status: Chronic Assessment and plan: BMI 46, weight 131kg. lifestyle modifications encouraged as outpatient Qualifiers: Obesity type: due to excess calories Serious obesity comorbidity presence: without serious comorbidity Body mass index: BMI 45.0-49.9 Qualified Code(s) : E66.01 - Morbid (severe) obesity due to excess calories; Z68.42 - Body mass index (BMI) 45.0-49.9, adult; Z68.42 - Body mass index (BMI) 45.0-49.9, adult; Z68.42 - Body mass index (BMI) 45.0-49.9, adult; Z68.42 - Body mass index (BMI) 45.0-49.9, adult (6) Hypoxia Current Visit: Yes Status: Acute Assessment and plan: - Oxygen saturation down to 84% on room air on admission. - Morbid obesity likely playing a role however she is on SAMPLE BOOK MAKER pump and at risk for hypoventilation syndrome vs pain induced hypoventilation - Currently tolerating 1L O2 at 95% - No reported underlying lung disease. Plan - Supplemental O2. Aggressive IS. - Will continue to monitor and attempt to wean. (7) DVT prophylaxis Current Visit: Yes Status: Acute Assessment and plan: heparin 5000 units q8 hours - Time Spent With Patient 25 - 35 minutes - Subjective Interval history: Patient was seen and examined at bedside this morning. She states that she is still a considerable amount of pain, located diffusely in her abdomen. She states that since starting clear liquid she has been nauseous. No episodes of emesis. Is having flatus but denies any bowel movements. Questions were answered - Constitutional Vitals: Temp Pulse Resp BP Pulse Ox 98.5 F 74 16 104/53 93 06/02/17 12:05 06/02/17 12:05 06/02/17 12:05 06/02/17 12:05 06/02/17 12:05 General appearance: Present: A&O X 3, morbidly obese, pleasant, no acute distress, answers questions appropriately Exam: Gen.: Vitals noted. No acute distress. AAOx3 HEENT: PERRL/EOMI, oropharynx clear, Normocephalic, atraumatic Cardiac: RRR, no murmur, +S1/S2 Pulmonary: CTA bilaterally, no wheezes, rales or rhonchi, equal chest expansion Abdomen: soft, diffusely tender worsening right upper quadrant, BS noted, involuntary guarding, rebound tenderness positive MSK: ROM intact, no joint swelling noted Extremities: no BLE edema, nontender calf, no cyanosis or clubbing Neuro: A&Ox3, moves all extremities, no focal deficits Psych: Appropriate mood and behavior Internal Medicine: Result - Labs CBC & Chem 7: 06/02/17 05:00 06/02/17 05:00 Labs: Short CBC 06/02/17 Range/Units 05:00 WBC 8.3 (4.3-11.1) K/mcL Hgb 11.2 L (11.5-15.4) g/dL Hct 34.7 L (35.3-44.9) % Plt Count 233 (140-400) K/mcL BMP 06/02/17 05:00 Sodium 137 Potassium 3.5 Chloride 104 Carbon Dioxide 28 BUN 10 Creatinine 0.95 Glucose 136 H Calcium 8.4 L - ABG Interpretation ABG results: PT/INR, D-dimer PT 13.8 Seconds (9.4-12.1) H 05/30/17 06:42 - Impressions Impressions Abdomen/Pelvis CT 06/02/17 09:30 IMPRESSION: 1. 1.7 cm x 3.9 cm x 2.7 cm abscess inferior to the proximal sigmoid colon, most likely related to perforation in the setting of acute diverticulitis. Recommend follow-up following treatment, as a perforated colonic neoplasm could result in a similar appearance. 2. Increased inflammation in the mesenteries inferiorly in the adjacent extraperitoneal tissues. There is also increased peritonitis in the same distribution within the pelvis. 3. Persistent though decreased pneumoperitoneum. 4. New minimal right hydronephrosis and mild right hydroureter with findings suggestive of right ureteritis. Milder bilateral pyelitis could also be present. 5. Suspected cystitis. A tiny focus of intravesical gas could also be related to recent instrumentation. D/ / Catracho Cassidy MD / Catracho Cassidy MD Interpreting Provider: Catracho Cassidy MD Consult Discharge Plan - Plan Referrals: Kole Barksdale MD [Primary Care Provider] - 06/08/17 9:45 am <John Browne - Last Filed: 06/02/17 18:22> Date of Encounter: 06/02/17 - Assessment and plan (1) Diverticulitis large intestine Current Visit: Yes Status: Acute Qualifiers: Diverticulitis bleeding: without bleeding Diverticulitis complication: with perforation and abscess Qualified Code(s): K57.20 - Diverticulitis of large intestine with perforation and abscess without bleeding (2) HTN (hypertension) Current Visit: Yes Status: Acute Qualifiers: Hypertension type: essential hypertension Qualified Code(s): I10 - Essential (primary) hypertension (3) Hypothyroidism Current Visit: Yes Status: Acute Qualifiers: Hypothyroidism type: acquired Qualified Code(s): E03.9 - Hypothyroidism, unspecified (4) Morbid obesity with BMI of 45.0-49.9, adult Current Visit: Yes Status: Acute - Constitutional Vitals: Temp Pulse Resp BP Pulse Ox 98.5 F 74 16 104/53 93 06/02/17 12:05 06/02/17 12:05 06/02/17 12:05 06/02/17 12:05 06/02/17 12:05 Internal Medicine: Result - Labs CBC & Chem 7: 06/02/17 05:00 06/02/17 05:00 Labs: Short CBC 06/02/17 Range/Units 05:00 WBC 8.3 (4.3-11.1) K/mcL Hgb 11.2 L (11.5-15.4) g/dL Hct 34.7 L (35.3-44.9) % Plt Count 233 (140-400) K/mcL BMP 06/02/17 05:00 Sodium 137 Potassium 3.5 Chloride 104 Carbon Dioxide 28 BUN 10 Creatinine 0.95 Glucose 136 H Calcium 8.4 L - ABG Interpretation ABG results: PT/INR, D-dimer PT 13.8 Seconds (9.4-12.1) H 05/30/17 06:42 - Impressions Impressions Abdomen/Pelvis CT 06/02/17 09:30 IMPRESSION: 1. 1.7 cm x 3.9 cm x 2.7 cm abscess inferior to the proximal sigmoid colon, most likely related to perforation in the setting of acute diverticulitis. Recommend follow-up following treatment, as a perforated colonic neoplasm could result in a similar appearance. 2. Increased inflammation in the mesenteries inferiorly in the adjacent extraperitoneal tissues. There is also increased peritonitis in the same distribution within the pelvis. 3. Persistent though decreased pneumoperitoneum. 4. New minimal right hydronephrosis and mild right hydroureter with findings suggestive of right ureteritis. Milder bilateral pyelitis could also be present. 5. Suspected cystitis. A tiny focus of intravesical gas could also be related to recent instrumentation. D/ / Catracho Cassidy MD / Catracho Cassidy MD Interpreting Provider: Catracho Cassidy MD - Attending Attestation I examined this patient and my medical decision-making was reviewed with the Resident Physician on 06/02/17. I agree with the documented findings, disposition and treatment plan as described except to the extent set forth below. Ms Mitchell is currently admitted for acute perforated diverticulitis. She remains moderate to high risk due to potential for worsening clinical status. Ms Mitchell is resting comfortably at this time. CT today shows abscess in region. To have surgery on Wednesday. PICC placed for TPN today. Exam Alert Comfortable Mucus membranes dry Heart not tachy No wheeze Abd tenderness persists. I/P 1. Perf diverticulum with abscess Further diagnoses and plan as above.
[2017-06-02] MEDS ORDERED: Clinimix E 5%-15% SOLUTION 2,000 ML with MVI, adult with vitamin K 10 ML IVC SCH (17:00)
[2017-06-02] MEDS: Ipratropium/Albuterol Neb 3 ML IH PRN (23:35)
[2017-06-03] MEDS: Ipratropium/Albuterol Neb 3 ML IH PRN ×2 (03:39→07:52)
[2017-06-03] MEDS: MetroNIDAZOLE 500 MG/100 ML 500 MG/100 ML BAG IVPB SCH ×4 (03:49→21:51)
[2017-06-03 04:20] LABS: Basophils % 0.5 %; Eosinophils # 0.3 K/mcL (0.0-0.6); Eosinophils % 4.4 %; Hematocrit 34.2 % (35.3-44.9); Hemoglobin 11.1 g/dL (11.5-15.4); Lymphocytes # 2.4 K/mcL (0.6-4.6); Lymphocytes % 30.4 %; Mean Corpuscular HGB Conc 32.5 g/dL (31.6-35.5); Mean Corpuscular Hemoglobin 30.4 pg (28.0-33.3); Mean Corpuscular Volume 93.7 fL (83.0-100.0); Mean Platelet Volume 8.7 fL (9.4-12.4); Monocytes # 0.8 K/mcL (0.0-1.3); Monocytes % 9.8 %; Neutrophils # 4.2 K/mcL (1.6-8.9); Nucleated Red Blood Cells 0.4 /100 WBC (0); Platelet Count 214 K/mcL (140-400); Red Blood Count 3.65 M/mcL (3.82-4.97); Red Cell Distribution Width 13.1 % (11.5-14.5); Segmented Neutrophils % 53.9 %
[2017-06-03 04:50] LABS: Magnesium 1.8 mg/dL (1.6-2.6)
[2017-06-03 04:52] LABS: BUN/Creatinine Ratio 11 (6-26); Blood Urea Nitrogen 9 mg/dL (8-23); Calcium 8.5 mg/dL (8.6-10.3); Carbon Dioxide 29 mEq/L (23-29); Chloride 106 mEq/L (98-107); Glucose 151 mg/dL (70-105); Osmolality,Calculated 290 (280-300); Potassium 3.5 mEq/L (3.5-5.1); Sodium 139 mEq/L (136-145); eGFR For African Americans > 60 (> 60); eGFR For Non-African Americans > 60 (> 60)
[2017-06-03 05:10] LABS: Platelet Estimate Normal (Normal); Reactive Lymphocytes Present (Not Present)
[2017-06-03] MEDS: *HR* Heparin 5,000 UNIT/ML VIAL SQ SCH (06:24)
[2017-06-03] MEDS: *HR* Promethazine 25 MG/ML VIAL IVP PRN ×3 (09:53→21:31)
[2017-06-03] MEDS: Pantoprazole 40 MG VIAL IVP SCH (10:02)
[2017-06-03] MEDS ORDERED: Clinimix E 5%-15% SOLUTION 2,000 ML with MVI, adult with vitamin K 10 ML IVC SCH ×2 (11:14→17:00)
[2017-06-03] MEDS ORDERED: *HR* HYDROmorphone 20 MG/20 ML PCA IVC PRN (11:14)
[2017-06-03] MEDS ORDERED: 0.9 % Sodium Chloride 1,000 ML IVC SCH (11:14)
[2017-06-03] MEDS ORDERED: D10% in Water 500 ML IVC PRN (11:14)
[2017-06-03] MEDS ORDERED: Naloxone 0.4 MG/ML INJ IVP PRN (11:14)
[2017-06-03] MEDS: Ondansetron 4 MG/2 ML VIAL IVP PRN ×2 (12:36→17:43)
[2017-06-03] MEDS ORDERED: Dextrose Gel 15 GM/37.5 ML TUBE PO PRN ×2 (13:28)
[2017-06-03] MEDS ORDERED: D5% in Water 1,000 ML IVC PRN (13:28)
[2017-06-03] MEDS ORDERED: *HR* Dextrose 50 % in Water (Syg) 50 ML SYRINGE IVP PRN (13:28)
[2017-06-03] MEDS ORDERED: *HR* Heparin 5,000 UNIT/ML VIAL SQ SCH (14:00)
--- NOTE | 2017-06-03 14:32 | Urology - Consult Note ---
Date of Encounter: 06/03/17 Time of Encounter: 14:30 - Assessment and Plan (1) Hydronephrosis Current Visit: Yes Status: Acute Assessment and plan: I believe the patient's hydronephrosis is most likely secondary to reaction from her acute diverticulitis. I will be available to place ureteral catheters for Dr. Machuca's case tomorrow. Qualifiers: Hydronephrosis type: other Qualified Code(s): N13.39 - Other hydronephrosis (2) Urinary urgency Current Visit: Yes Status: Acute Assessment and plan: This has resolved with the urinary catheter placement. This could have been caused from her diverticulitis causing irritation on the bladder wall. No evidence on CT scan of fistulous connection to the bladder. Urology CN:HPI Consult date: 06/03/17 Reason for consult Urology: Hydronephrosis Requesting physician: Michele Machuca History of present illness: Char is a 61-year-old female with a history of admission to the hospital secondary to acute diverticulitis. Patient has developed some hydronephrosis on CT scan which appears to be secondary to acute distal inflammation from her colon. Patient denies any flank pain. She was having some significant urgency after the catheter was removed. This has subsequently been replaced. Patient did follow with the urology office years ago for recurrent urinary tract infections. No known urological history of surgery. Past Med Surg Social Fam HX - Past Medical History Medical history: hyperlipidemia, hypertension, renal disease, other Psychiatric history: no psych history - Past Surgical History Surgical History: appendectomy, cholecystectomy, knee replacement, other - Social History Smoking Status: Never smoker Smokeless Tobacco Status: No Alcohol use: rarely Drug use: none - Family History Mother Name: Peggy Swift Living Status: Age at : 70 Cause of : kidney failure Hx Family Cardiac Disorders: Yes Medications and Allergies Cyclobenzaprine [Flexeril] 10 mg PO TID PRN 05/29/17 [History] Ergocalciferol (VITAMIN D2) [Vitamin D2] 50,000 unit PO MO 05/29/17 [History] Furosemide [Lasix] 20 mg PO DAILY 05/29/17 [History] Levothyroxine [Synthroid] 50 mcg PO DAILY 05/29/17 [History] Losartan [Cozaar] 25 mg PO DAILY 05/29/17 [History] Oxycodone HCl/Acetaminophen [Percocet 10-325 mg Tablet] 1 each PO Q4-6H PRN [History] Potassium Chloride [K-Tab ER] 10 meq PO DAILY 05/29/17 [History] Ranitidine HCl [Acid Yarn Texture Machine Operator] 150 mg PO BID 05/29/17 [History] Aspirin Enteric Coated [Aspirin EC] 81 mg PO DAILY 05/31/17 [History] 3 Allergy/AdvReac Type Severity Reaction Status Date / Time Penicillins Allergy Hives Verified 05/29/17 08:23 Sulfa (Sulfonamide Allergy Hives Verified 05/29/17 08:23 Antibiotics) Review of Systems - Constitutional no chills, no fever(s) - EENT Nose, mouth and throat: no dizziness - Cardiovascular no chest pain - Respiratory no cough - Gastrointestinal abdominal pain - Musculoskeletal no back pain - Integumentary no erythema - Psychiatric no anxiety - Hematologic/Lymphatic no easy bleeding - Allergic/Immunologic no throat swelling, no wheezing Exam Initial Vital Signs Temp Pulse Resp BP Pulse Ox 98.5 F 98 24 174/84 97 05/29/17 08:22 05/29/17 08:22 05/29/17 08:22 05/29/17 08:22 05/29/17 08:22 - General physical appearance Present: well developed, well nourished (morbidly obese) - Eyes Present: PERRL. Absent: icteric - ENT Present: normal nares - Neck Present: no lymphadenopathy - Respiratory Present: normal respiratory effort - Cardiovascular Cardiovascular exam IM: RRR - Abdomen Abdomen: Present: soft. Absent: tender - Genitourinary Present: other (clear urine in catheter tubing) - Integumentary Present: no rash - Neurologic Present: normal coordination Urology Results - Labs 06/03/17 04:00 06/03/17 04:00 Abnormal lab results RBC 3.65 M/mcL (3.82-4.97) L 06/03/17 04:00 Hgb 11.1 g/dL (11.5-15.4) L 06/03/17 04:00 Hct 34.2 % (35.3-44.9) L 06/03/17 04:00 MPV 8.7 fL (9.4-12.4) L 06/03/17 04:00 Nucleated RBCs/100 WBC 0.4 /100 WBC (0) H 06/03/17 04:00 Reactive Lymphocytes Present (Not Present) A 06/03/17 04:00 PT 13.8 Seconds (9.4-12.1) H 05/30/17 06:42 Glucose 151 mg/dL (70-105) H 06/03/17 04:00 POC Glucose 149 (58-89) H 06/03/17 07:29 Calcium 8.5 mg/dL (8.6-10.3) L 06/03/17 04:00 Total Bilirubin 1.1 mg/dL (0.3-1.0) H 05/30/17 06:42 Prealbumin 7.7 mg/dL (17.0-34.0) L 06/03/17 04:00 Diabetes panel 06/03/17 06/03/17 Range/Units 04:00 04:00 Sodium 139 (136-145) mEq/L Potassium 3.5 (3.5-5.1) mEq/L Chloride 106 (98-107) mEq/L Carbon Dioxide 29 (23-29) mEq/L BUN 9 (8-23) mg/dL Creatinine 0.84 (0.60-1.20) mg/dL Glucose 151 H (70-105) mg/dL Calcium 8.5 L (8.6-10.3) mg/dL Triglycerides 100 (< 150) mg/dL Calcium panel 06/03/17 06/03/17 Range/Units 04:00 04:00 Calcium 8.5 L (8.6-10.3) mg/dL Phosphorus 3.0 (2.7-4.5) mg/dL Pituitary panel 06/03/17 Range/Units 04:00 Sodium 139 (136-145) mEq/L Potassium 3.5 (3.5-5.1) mEq/L Chloride 106 (98-107) mEq/L Carbon Dioxide 29 (23-29) mEq/L BUN 9 (8-23) mg/dL Creatinine 0.84 (0.60-1.20) mg/dL Glucose 151 H (70-105) mg/dL Calcium 8.5 L (8.6-10.3) mg/dL Adrenal panel 06/03/17 Range/Units 04:00 Sodium 139 (136-145) mEq/L Potassium 3.5 (3.5-5.1) mEq/L Chloride 106 (98-107) mEq/L Carbon Dioxide 29 (23-29) mEq/L BUN 9 (8-23) mg/dL Creatinine 0.84 (0.60-1.20) mg/dL Glucose 151 H (70-105) mg/dL Calcium 8.5 L (8.6-10.3) mg/dL All other labs normal. - Imaging CT scan - abdomen: image reviewed CT scan - pelvis: image reviewed Consult Discharge Plan - Plan Referrals: Kole Barksdale MD [Primary Care Provider] - 06/08/17 9:45 am
--- NOTE | 2017-06-03 16:03 | Internal Med Progress Note ---
<MinervahaleyLeland alford - Last Filed: 06/03/17 16:01> Date of Encounter: 06/03/17 Time of Encounter: 09:45 - Assessment and plan (1) Perforated diverticulum Current Visit: Yes Status: Acute Assessment and plan: - ABD CT with multiple left sided colon and sigmoid diverticula with wall thickening and extraluminal gas/pneumoperitoneum consistent with acute perforated diverticulitis. - Repeat abdominal CT on 06/02/17 showing 1.17 cm x 3.9 cm x 2.7 cm abscess inferior to the proximal sigmoid colon, increased inflammation of the mesentery , new minimal right hydronephrosis suggestive of uriritis - WBC 16 on admission, down trended to 7.8 this AM. lactic acid normal - General Surgery following, scheduled for surgery on 06/04/17. - Pt reports good pain control with INSURANCE EXAMINING CLERK, mildly improved from yesterday. No further episodes of vomiting/nausea. - Afebrile. No tachycardia. - Significant nausea with enteral nutrition, has not been taking oral intake Plan - Has been receiving IV Cipro, metronidazole, day 6 - Dilaudid INSURANCE EXAMINING CLERK pump for pain control. - Pain control with INSURANCE EXAMINING CLERK. Blood cultures pending. General surgery following - We will place PICC line and increase TPN nutrition today - Per surgery, is scheduled for procedure on 06/04/17 - Will transfer to today as she no longer requires telemetry when bed is available (2) Diverticulitis Current Visit: Yes Status: Acute Assessment and plan: as above (3) HTN (hypertension) Current Visit: Yes Status: Acute Assessment and plan: - BP well controlled at this visit. Most recent of 124/71 - Holding home BP meds due to NPO status Plan - Continue hydralazine IV PRN hypertension - Monitor given high amount of pain medications Qualifiers: Hypertension type: essential hypertension Qualified Code(s): I10 - Essential (primary) hypertension (4) Hypothyroidism Current Visit: Yes Status: Acute Assessment and plan: Patient is no longer taking by mouth medication, we will change levothyroxine to IV. Qualifiers: Hypothyroidism type: acquired Qualified Code(s): E03.9 - Hypothyroidism, unspecified (5) Obesity Current Visit: Yes Status: Chronic Assessment and plan: BMI 46, weight 131kg. lifestyle modifications encouraged as outpatient Qualifiers: Obesity type: due to excess calories Serious obesity comorbidity presence: without serious comorbidity Body mass index: BMI 45.0-49.9 Qualified Code(s) : E66.01 - Morbid (severe) obesity due to excess calories; Z68.42 - Body mass index (BMI) 45.0-49.9, adult; Z68.42 - Body mass index (BMI) 45.0-49.9, adult; Z68.42 - Body mass index (BMI) 45.0-49.9, adult; Z68.42 - Body mass index (BMI) 45.0-49.9, adult (6) Hypoxia Current Visit: Yes Status: Acute Assessment and plan: - Oxygen saturation down to 84% on room air on admission. - Morbid obesity likely playing a role however she is on INSURANCE EXAMINING CLERK pump and at risk for hypoventilation syndrome vs pain induced hypoventilation - Currently tolerating 2L O2 at 94% - No reported underlying lung disease. Plan - Supplemental O2. Aggressive IS. - Will continue to monitor and attempt to wean. (7) DVT prophylaxis Current Visit: Yes Status: Acute Assessment and plan: heparin 5000 units q8 hours - Time Spent With Patient 25 - 35 minutes - Subjective Interval history: Patient was seen and examined at bedside this morning. She states she is doing better today with less use of pain medicine. She states that she is still having a small amount of nausea however is greatly improved from yesterday. She is not taking any oral intake at this time. She spoke with her surgeon who instructed that she will be undergoing surgery on Wednesday. Questions were answered - Constitutional Vitals: Temp Pulse Resp BP Pulse Ox 97.8 F 73 18 124/71 94 06/03/17 11:59 06/03/17 11:59 06/03/17 11:59 06/03/17 11:59 06/03/17 12:17 General appearance: Present: A&O X 3, morbidly obese, pleasant, no acute distress, answers questions appropriately Exam: Gen.: Vitals noted. No acute distress. AAOx3 HEENT: PERRL/EOMI, oropharynx clear, Normocephalic, atraumatic Cardiac: RRR, no murmur, +S1/S2 Pulmonary: CTA bilaterally, no wheezes, rales or rhonchi, equal chest expansion Abdomen: soft, tender to palpation most prominent in right upper quadrant, however it is improved from previous., BS noted, positive involuntary guarding, rebound tenderness positive. MSK: ROM intact, no joint swelling noted Extremities: no BLE edema, nontender calf, no cyanosis or clubbing Neuro: A&Ox3, moves all extremities, no focal deficits Psych: Appropriate mood and behavior Internal Medicine: Result - Labs CBC & Chem 7: 06/03/17 04:00 06/03/17 04:00 Labs: Short CBC 06/03/17 Range/Units 04:00 WBC 7.8 (4.3-11.1) K/mcL Hgb 11.1 L (11.5-15.4) g/dL Hct 34.2 L (35.3-44.9) % Plt Count 214 (140-400) K/mcL Neutrophils # 4.2 (1.6-8.9) K/mcL BMP 06/03/17 04:00 Sodium 139 Potassium 3.5 Chloride 106 Carbon Dioxide 29 BUN 9 Creatinine 0.84 Glucose 151 H Calcium 8.5 L - ABG Interpretation ABG results: PT/INR, D-dimer PT 13.8 Seconds (9.4-12.1) H 05/30/17 06:42 - VTE Documentation of Mechanical Device: Intermittent pneumatic compression device Consult Discharge Plan - Plan Referrals: Kole Barksdale MD [Primary Care Provider] - 06/08/17 9:45 am <John Browne - Last Filed: 06/03/17 19:21> Date of Encounter: 06/03/17 - Assessment and plan (1) Diverticulitis large intestine Current Visit: Yes Status: Acute Qualifiers: Diverticulitis bleeding: without bleeding Diverticulitis complication: with perforation and abscess Qualified Code(s): K57.20 - Diverticulitis of large intestine with perforation and abscess without bleeding (2) HTN (hypertension) Current Visit: Yes Status: Acute Qualifiers: Hypertension type: essential hypertension Qualified Code(s): I10 - Essential (primary) hypertension (3) Hypothyroidism Current Visit: Yes Status: Acute Qualifiers: Hypothyroidism type: acquired Qualified Code(s): E03.9 - Hypothyroidism, unspecified (4) Morbid obesity with BMI of 45.0-49.9, adult Current Visit: Yes Status: Acute - Constitutional Vitals: Temp Pulse Resp BP Pulse Ox 98.4 F 77 18 136/66 96 06/03/17 15:00 06/03/17 15:00 06/03/17 15:00 06/03/17 15:00 06/03/17 15:00 Internal Medicine: Result - Labs CBC & Chem 7: 06/03/17 04:00 06/03/17 04:00 Labs: Short CBC 06/03/17 Range/Units 04:00 WBC 7.8 (4.3-11.1) K/mcL Hgb 11.1 L (11.5-15.4) g/dL Hct 34.2 L (35.3-44.9) % Plt Count 214 (140-400) K/mcL Neutrophils # 4.2 (1.6-8.9) K/mcL BMP 06/03/17 04:00 Sodium 139 Potassium 3.5 Chloride 106 Carbon Dioxide 29 BUN 9 Creatinine 0.84 Glucose 151 H Calcium 8.5 L - ABG Interpretation ABG results: PT/INR, D-dimer PT 13.8 Seconds (9.4-12.1) H 05/30/17 06:42 - Attending Attestation I examined this patient and my medical decision-making was reviewed with the Resident Physician on 06/03/17. I agree with the documented findings, disposition and treatment plan as described except to the extent set forth below. Ms Mitchell is currently admitted for acute perforated sigmoid diverticulum with abscess. She remains moderate to high risk due to potential clinical worsening. She remains on TPN. Ms Mitchell is still nauseated. Pain is controlled. No fever or chills. To go to OR tomorrow. Exam Alert. Comfortable Mucus membranes dry Heart reg No wheeze Abd with continued discomfort I/P 1. Abd abscess 2. Perf diverticulum Further diagnoses and plan as above.
[2017-06-03] MEDS: Insulin LISPRO 300 UNITS/3 ML VIAL SQ SCH (18:59)
--- NOTE | 2017-06-03 19:01 | General Surgery Progress Note ---
Date of Encounter: 06/03/17 Time of Encounter: 18:00 Subjective Narrative: General Surgery - Hospital Day #5 Patient remained afebrile and hemodynamically stable but is experiencing lower abdominal pain. 2 days ago she was pain-free Patient is still complaining of nausea with very little oral intake. TPN has been initiated which the patient appears to be tolerating well. Appreciate Dr. Bradshaw evaluation and consultation. Afebrile, currently 98.4, pulse 77, respirations 18, blood pressure 136/66. SPO2 on 2 L/minute nasal cannula 94-96% Lungs: Clear; no abdominal pain on deep inspiration or cough Cardiac: Regular rate, no appreciable murmurs Abdomen: Obese, soft with tenderness in the left lower quadrant and suprapubic area. No discernible intra-abdominal masses, no rebound. Laboratories: White count remained stable at 7.8, hemoglobin also stable at 11.1 , hematocrit 34.2. No significant change in differential Electrolytes notable for potassium borderline at 3.5; BUN 9, creatinine 0.84. Impression: 61-year-old female with acute perforated sigmoid diverticulitis. Patient had an initial improvement but now is demonstrating recurrent lower abdominal tenderness. There has been no fevers or leukocytosis however the pelvic inflammation has caused mild right hydronephrosis. I have discussed this at length with the patient and we will schedule sigmoid colectomy in the a.m. I have discussed this with Dr Bradshaw, he will be available to place ureteral stents to address the right hydronephrosis. I anticipate that once surgery has been completed the inflammatory obstruction of the right ureter will diminish. An exploratory celiotomy with sigmoid colectomy is scheduled for the a.m. Risks of surgery including hemorrhage, infection, intra-abdominal abscess, injury to adjacent structures such as the bladder ureters and adjacent bowel. Additional risks include pneumonia, respiratory failure, cardiac dysrhythmia and MS. Possible end colostomy was discussed in detail. A primary resection will be considered if the acute pelvic inflammation is reasonably controlled. I have also discussed epidural placement for perioperative pain control. I have encouraged the patient to discuss with anesthesia preoperatively. The patient and her have expressed understanding. They are willing to proceed. Consent has been obtained. Objective Vital Signs - Last 8 Hours Temp Pulse Resp BP Pulse Ox 06/03/17 15:00 98.4 F 77 18 136/66 96 06/03/17 12:17 94 01/18/18 11:59 97.8 F 73 18 124/71 96 Intake and Output 06/03/17 06/03/17 06/03/17 07:59 15:59 23:59 Intake Total 830 / 830 120 / 120 Output Total 1600 / 1600 1150 / 1150 Balance -770 / -770 -1030 / -1030 Intake: IV Fluids 350 / 350 Intralipid 20% 250 ML @ 21 mls/ 250 / 250 hr IVPB DAILY@1700 [facility] Rx#: [id number] Flagyl Premix 500 MG/100 ML 500 100 / 100 mg In 100 ml @ 100 mls/hr IVPB Q6H [facility] Rx#:[id number] Oral 480 / 480 120 / 120 Output: Catheter 1600 / 1600 1150 / 1150 Other: Weight 125.7 kg Blood Glucose* 149 166 97 Patient Weight 06/03/17 23:59 Weight 125.7 kg - Labs 06/03/17 04:00 06/03/17 04:00 Diabetes panel 06/03/17 06/03/17 Range/Units 04:00 04:00 Sodium 139 (136-145) mEq/L Potassium 3.5 (3.5-5.1) mEq/L Chloride 106 (98-107) mEq/L Carbon Dioxide 29 (23-29) mEq/L BUN 9 (8-23) mg/dL Creatinine 0.84 (0.60-1.20) mg/dL Glucose 151 H (70-105) mg/dL Calcium 8.5 L (8.6-10.3) mg/dL Triglycerides 100 (< 150) mg/dL Calcium panel 06/03/17 06/03/17 Range/Units 04:00 04:00 Calcium 8.5 L (8.6-10.3) mg/dL Phosphorus 3.0 (2.7-4.5) mg/dL Pituitary panel 06/03/17 Range/Units 04:00 Sodium 139 (136-145) mEq/L Potassium 3.5 (3.5-5.1) mEq/L Chloride 106 (98-107) mEq/L Carbon Dioxide 29 (23-29) mEq/L BUN 9 (8-23) mg/dL Creatinine 0.84 (0.60-1.20) mg/dL Glucose 151 H (70-105) mg/dL Calcium 8.5 L (8.6-10.3) mg/dL Adrenal panel 06/03/17 Range/Units 04:00 Sodium 139 (136-145) mEq/L Potassium 3.5 (3.5-5.1) mEq/L Chloride 106 (98-107) mEq/L Carbon Dioxide 29 (23-29) mEq/L BUN 9 (8-23) mg/dL Creatinine 0.84 (0.60-1.20) mg/dL Glucose 151 H (70-105) mg/dL Calcium 8.5 L (8.6-10.3) mg/dL - VTE Documentation of Mechanical Device: Intermittent pneumatic compression device Consult Discharge Plan - Plan Referrals: Kole Barksdale MD [Primary Care Provider] - 06/08/17 9:45 am
--- NOTE | 2017-06-03 19:54 | Anesthesia Evaluation PreOp ---
Date of Encounter: 06/03/17 Time of Encounter: 21:58 - Past History Planned Operation: Sigmoid colectomy, pili stents Cardiac History: HTN, Hyperlipidemia Pulmonary History: Denies Any Significant HX MISSING PERSONS INVESTIGATOR History: Denies Any Significant HX Other Medical History: Renal (ckd), Thyroid, GERD, Other (perforated diverticula , BMI 45) Anesthesia History: Past Anesthesia (Appendectomy, cholecystectomy, tubal ligation, ADRIANNA/BSO, left total knee 2), Problems (woke up in middle of knee surgery; aspirated after one surgery (years ago - never an issue since); PONV) Alcohol Use: rarely Drug use: none Medications and Allergies Cyclobenzaprine [Flexeril] 10 mg PO TID PRN 05/29/17 [History] Ergocalciferol (VITAMIN D2) [Vitamin D2] 50,000 unit PO MO 05/29/17 [History] Furosemide [Lasix] 20 mg PO DAILY 05/29/17 [History] Levothyroxine [Synthroid] 50 mcg PO DAILY 05/29/17 [History] Losartan [Cozaar] 25 mg PO DAILY 05/29/17 [History] Oxycodone HCl/Acetaminophen [Percocet 10-325 mg Tablet] 1 each PO Q4-6H PRN [History] Potassium Chloride [K-Tab ER] 10 meq PO DAILY 05/29/17 [History] Ranitidine HCl [Acid Wool Fleece Sorter] 150 mg PO BID 05/29/17 [History] Aspirin Enteric Coated [Aspirin EC] 81 mg PO DAILY 05/31/17 [History] 3 Allergy/AdvReac Type Severity Reaction Status Date / Time Penicillins Allergy Hives Verified 05/29/17 08:23 Sulfa (Sulfonamide Allergy Hives Verified 05/29/17 08:23 Antibiotics) - Meds/Allergy Pre-op Review Medications Reviewed: Yes Allergies Reviewed: Yes Beta Blockers on Current Med List: No Anesthesia Results - Labs 06/03/17 04:00 06/03/17 04:00 - Imaging EKG: report reviewed, image reviewed (SINUS RHYTHM LEFT ANTERIOR FASCICULAR BLOCK [QRS AXIS <= -45, QR IN I, RS IN II] POOR R WAVE PROGRESSION) Anesthesia Exam Last Vital Signs Temp 98.4 F 06/03/17 15:00 Pulse 77 06/03/17 15:00 Resp 18 06/03/17 15:00 BP 136/66 06/03/17 15:00 Pulse Ox 96 06/03/17 15:00 Weight: 126 kg (BMI 45) - HEENT Pupil (Motor): Pupils equal, EOMI Mallampati: III Teeth: Edentulous Denture Type: Upper: Complete, Lower: Complete Oral Opening: Greater than 3 - MISSING PERSONS INVESTIGATOR LOC: Oriented - Cardiac Rhythm: Regular Murmur: None - Pulmonary Breath Sounds: bilateral Clear Respiratory Effort: Symmetrical Anesthesia Assess/Plan ASA Score: 3 Modified Tres Scale for Level of Consciousness: Cooperative, oriented, and tranquil Anesthetic Plan: General, Regional ([place] requesting epidural for post-op pain control) Monitoring Plan: Standard Monitors Recovery Plan: PACU
[2017-06-04] MEDS: Insulin LISPRO 300 UNITS/3 ML VIAL SQ SCH ×3 (01:03→13:20)
[2017-06-04] MEDS: Ondansetron 4 MG/2 ML VIAL IVP PRN (02:00)
[2017-06-04] MEDS: MetroNIDAZOLE 500 MG/100 ML 500 MG/100 ML BAG IVPB SCH ×3 (04:31→22:17)
[2017-06-04 06:11] LABS: Hematocrit 32.8 % (35.3-44.9); Hemoglobin 10.4 g/dL (11.5-15.4); Mean Corpuscular HGB Conc 31.7 g/dL (31.6-35.5); Mean Corpuscular Hemoglobin 29.8 pg (28.0-33.3); Mean Platelet Volume 8.6 fL (9.4-12.4); Platelet Count 243 K/mcL (140-400); Red Blood Count 3.49 M/mcL (3.82-4.97); Red Cell Distribution Width 13.2 % (11.5-14.5)
[2017-06-04 06:21] LABS: Alanine Aminotransferase 8 Units/L (7-52); Albumin 2.7 g/dL (3.5-5.7); Alkaline Phosphatase 41 Units/L (34-104); Aspartate Amino Transferase 11 Units/L (13-39); BUN/Creatinine Ratio 12 (6-26); Bilirubin,Total 0.3 mg/dL (0.3-1.0); Blood Urea Nitrogen 10 mg/dL (8-23); Calcium 7.9 mg/dL (8.6-10.3); Carbon Dioxide 30 mEq/L (23-29); Chloride 107 mEq/L (98-107); Globulin 2.7 g/dL (2.4-3.5); Glucose 152 mg/dL (70-105); Magnesium 1.7 mg/dL (1.6-2.6); Osmolality,Calculated 292 (280-300); Phosphorous 3.3 mg/dL (2.7-4.5); Potassium 3.3 mEq/L (3.5-5.1); Sodium 140 mEq/L (136-145); Total Protein 5.4 g/dL (6.4-8.9); eGFR For African Americans > 60 (> 60); eGFR For Non-African Americans > 60 (> 60)
[2017-06-04 06:42] LABS: Lymphocytes # 2.8 K/mcL (0.6-4.6); Monocytes # 0.3 K/mcL (0.0-1.3); Neutrophils # 5.2 K/mcL (1.6-8.9); Platelet Estimate Normal (Normal); Reactive Lymphocytes Present (Not Present)
[2017-06-04] MEDS ORDERED: Pantoprazole 40 MG VIAL IVP SCH (09:00)
[2017-06-04] MEDS ORDERED: Levothyroxine Sodium 100 MCG VIAL IVP SCH (09:00)
[2017-06-04] MEDS: *HR* Promethazine 25 MG/ML VIAL IVP PRN (09:27)
[2017-06-04] MEDS ORDERED: *HR* FentaNYL (PF) 100 MCG/2 ML VIAL ONE ×3 (13:11→17:53)
[2017-06-04] MEDS ORDERED: *HR* Propofol 200 MG/20 ML VIAL IVP ONE (13:11)
[2017-06-04] MEDS ORDERED: *HR* Rocuronium Bromide 50 MG/5 ML VIAL ONE (13:12)
[2017-06-04] MEDS ORDERED: Lidocaine -MPF 2% 2 ML VIAL ONE (13:12)
[2017-06-04] MEDS ORDERED: *HR* Midazolam HCl 2 MG/2 ML VIAL ONE (13:12)
[2017-06-04] MEDS ORDERED: Dexamethasone 4 MG/ML VIAL ONE ×2 (13:12→15:41)
[2017-06-04] MEDS ORDERED: Ondansetron 4 MG/2 ML VIAL ONE ×2 (13:12→17:25)
--- NOTE | 2017-06-04 13:33 | Urology Progress Note ---
Date of Encounter: 06/04/17 Time of Encounter: 13:32 - Assessment and Plan (1) Hydronephrosis Current Visit: Yes Status: Acute Assessment and plan: will plan on placing right ureteral stent and left ureteral catheter today in OR Qualifiers: Hydronephrosis type: other Qualified Code(s): N13.39 - Other hydronephrosis (2) Urinary urgency Current Visit: Yes Status: Acute Progress Note Narrative: patient seen. doing ok. Objective Initial Vital Signs Temp Pulse Resp BP Pulse Ox 98.5 F 98 24 174/84 97 05/29/17 08:22 05/29/17 08:22 05/29/17 08:22 05/29/17 08:22 05/29/17 08:22 - General physical appearance Present: well developed - Abdomen Present: soft - Labs 06/04/17 05:46 06/04/17 05:46 Diabetes panel 06/04/17 Range/Units 05:46 Sodium 140 (136-145) mEq/L Potassium 3.3 L (3.5-5.1) mEq/L Chloride 107 (98-107) mEq/L Carbon Dioxide 30 H (23-29) mEq/L BUN 10 (8-23) mg/dL Creatinine 0.82 (0.60-1.20) mg/dL Glucose 152 H (70-105) mg/dL Calcium 7.9 L (8.6-10.3) mg/dL AST 11 L (13-39) Units/L ALT 8 (7-52) Units/L Alkaline Phosphatase 41 (34-104) Units/L Albumin 2.7 L (3.5-5.7) g/dL Calcium panel 06/04/17 Range/Units 05:46 Calcium 7.9 L (8.6-10.3) mg/dL Phosphorus 3.3 (2.7-4.5) mg/dL Albumin 2.7 L (3.5-5.7) g/dL Pituitary panel 06/04/17 Range/Units 05:46 Sodium 140 (136-145) mEq/L Potassium 3.3 L (3.5-5.1) mEq/L Chloride 107 (98-107) mEq/L Carbon Dioxide 30 H (23-29) mEq/L BUN 10 (8-23) mg/dL Creatinine 0.82 (0.60-1.20) mg/dL Glucose 152 H (70-105) mg/dL Calcium 7.9 L (8.6-10.3) mg/dL Adrenal panel 06/04/17 Range/Units 05:46 Sodium 140 (136-145) mEq/L Potassium 3.3 L (3.5-5.1) mEq/L Chloride 107 (98-107) mEq/L Carbon Dioxide 30 H (23-29) mEq/L BUN 10 (8-23) mg/dL Creatinine 0.82 (0.60-1.20) mg/dL Glucose 152 H (70-105) mg/dL Calcium 7.9 L (8.6-10.3) mg/dL Total Bilirubin 0.3 (0.3-1.0) mg/dL AST 11 L (13-39) Units/L ALT 8 (7-52) Units/L Alkaline Phosphatase 41 (34-104) Units/L Albumin 2.7 L (3.5-5.7) g/dL - VTE Documentation of Mechanical Device: Intermittent pneumatic compression device Consult Discharge Plan - Plan Referrals: Kole Barksdale MD [Primary Care Provider] - 06/08/17 9:45 am
[2017-06-04] MEDS ORDERED: *HR* PHENYLEPHRINE 1,000 MCG/10 ML SYRINGE IVP ONE (13:50)
[2017-06-04] MEDS ORDERED: Acetaminophen IV 1,000 MG/100 ML INFUS..BTL ONE (13:50)
[2017-06-04] MEDS ORDERED: Scopolamine Patch 1.5 MG PATCH.TD72 TD ONE (13:52)
--- NOTE | 2017-06-04 13:57 | Anesthesia Procedures ---
Date of Encounter: 06/04/17 Time of Encounter: 13:40 Procedures: Anesthesia - Epidural/Spinal Patient ID/Chart reviewed: Yes Patient examined: Yes Consent Obtained: Yes Supplemental Oxygen Rate (L/min): 2 Sedation: Versed (mg): 2 Sedation: Fentanyl (mcg): 100 Site Prep: Aseptic Technique, Sterile prep and drape, Povidone-Iodine 1% Patient position: upright Local Anesthetic: Lidocaine 1% Amount of Local Anesthetic used: 5 Touhy Needle Gauge: 19 Touhy Needle Depth (cm): 4 Loading Dose Administered: Thru Touhy Needle Interspace Used: L2-L3 Loss of Resistance (ALEXSANDRA): Yes Blood: No CSF: No Paresthesia: No Vitals + FHT's: Vital Signs/O2 Sat/Glucose, Most Current Temp Pulse Resp BP Pulse Ox 06/04/17 11:56 98.1 F 75 16 113/67 94
[2017-06-04] MEDS ORDERED: MetroNIDAZOLE 500 MG/100 ML 500 MG/100 ML BAG IVPB ONE (14:34)
[2017-06-04] MEDS ORDERED: Ropivacaine/PF 0.2% 200 MG/100 ML INFUS..BTL EP SCH ×2 (15:00→19:15)
--- NOTE | 2017-06-04 15:08 | Operative Note ---
Date of procedure: 06/04/17 Pre-op diagnosis: right hydronephrosis and need for ureteral catheter Post-op diagnosis: same Procedure: Cystoscopy and right 4.8 x 26 cm ureteral stent placement and left ureteral catheter placement Anesthesia: GETA Surgeon: Navarro Bradshaw Was there an speech language pathology assistant present: No Estimated blood loss (cc): 0 Specimen: none Condition: stable Disposition: PACU Procedure in Detail: Patient was prepped and draped in normal sterile fashion. Timeout procedure performed. I then inserted the cystoscope in the patient's bladder. Cannulated the right ureteral orifice using a Glidewire. I then placed a 4.8 x 26 m ureteral stent with good curl seen in the bladder. I then placed a left open-ended ureteral catheter. Don catheter was then placed into the patient' s bladder. The ureteral catheter was hooked into this. The remainder of the operative dictation will be performed by the primary surgeon.
[2017-06-04] MEDS ORDERED: *HR* Remifentanil 2 MG VIAL IVP ONE (15:17)
[2017-06-04] MEDS ORDERED: *HR* Vasopressin 20 UNIT/ML VIAL ONE (15:29)
[2017-06-04] MEDS ORDERED: Albumin Human 5% 25.0 GM/500 ML VIAL ONE (15:29)
[2017-06-04] MEDS ORDERED: Metoclopramide 10 MG/2 ML VIAL ONE (15:42)
--- NOTE | 2017-06-04 15:54 | Internal Med Progress Note ---
<EmilyLeland foster - Last Filed: 06/04/17 15:49> Date of Encounter: 06/04/17 Time of Encounter: 10:30 - Assessment and plan (1) Perforated diverticulum Current Visit: Yes Status: Acute Assessment and plan: - ABD CT with multiple left sided colon and sigmoid diverticula with wall thickening and extraluminal gas/pneumoperitoneum consistent with acute perforated diverticulitis. - Repeat abdominal CT on 06/02/17 showing 1.17 cm x 3.9 cm x 2.7 cm abscess inferior to the proximal sigmoid colon, increased inflammation of the mesentery , new minimal right hydronephrosis suggestive of uriritis - WBC 16 on admission, down trended to 8.3 this AM. lactic acid normal - General Surgery following, scheduled for surgery on 06/04/17. - Pt reports good pain control with [employer], slightly worse yesterday, also reports some nausea which was controlled with Zofran - Afebrile. No tachycardia. - Significant nausea with enteral nutrition, has not been taking oral intake Plan - Has been receiving IV Cipro, metronidazole, day 7 - Dilaudid [employer] pump for pain control. - Pain control with [employer]. Blood cultures pending. General surgery following - We will place PICC line and increase TPN nutrition - Per surgery, is scheduled for procedure on 06/04/17. - Transfer to another floor pending intensity of surgery per surgeon (2) Diverticulitis Current Visit: Yes Status: Acute Assessment and plan: as above (3) HTN (hypertension) Current Visit: Yes Status: Acute Assessment and plan: - BP well controlled at this visit. Most recent of 118/65 - Holding home BP meds due to NPO status Plan - Continue hydralazine IV PRN hypertension - Monitor given high amount of pain medications Qualifiers: Hypertension type: essential hypertension Qualified Code(s): I10 - Essential (primary) hypertension (4) Hypothyroidism Current Visit: Yes Status: Acute Assessment and plan: Continue IV levothyroxine while nothing by mouth Qualifiers: Hypothyroidism type: acquired Qualified Code(s): E03.9 - Hypothyroidism, unspecified (5) Obesity Current Visit: Yes Status: Chronic Assessment and plan: BMI 46, weight 131kg. lifestyle modifications encouraged as outpatient Qualifiers: Obesity type: due to excess calories Serious obesity comorbidity presence: without serious comorbidity Body mass index: BMI 45.0-49.9 Qualified Code(s) : E66.01 - Morbid (severe) obesity due to excess calories; Z68.42 - Body mass index (BMI) 45.0-49.9, adult; Z68.42 - Body mass index (BMI) 45.0-49.9, adult; Z68.42 - Body mass index (BMI) 45.0-49.9, adult; Z68.42 - Body mass index (BMI) 45.0-49.9, adult (6) Hypoxia Current Visit: Yes Status: Acute Assessment and plan: - Oxygen saturation down to 84% on room air on admission. - Morbid obesity likely playing a role however she is on [employer] pump and at risk for hypoventilation syndrome vs pain induced hypoventilation - Currently tolerating 92% on room air, no longer requiring supplemental oxygen - No reported underlying lung disease. Plan - Supplemental O2 as necessary. Aggressive IS. - Will continue to monitor and attempt to wean. -Also encouraged to seated position (7) Cystitis Current Visit: Yes Status: Acute Assessment and plan: - ABD CT with thickening of bladder wall and questionable incomplete distention versus cystitis with mild hydronephrosis - Continue Cipro and Flagyl as above - Urology to place ureteral stent during surgery this afternoon - Following, appreciate recs (8) DVT prophylaxis Current Visit: Yes Status: Acute Assessment and plan: heparin 5000 units q8 hours - Time Spent With Patient 25 - 35 minutes - Subjective Interval history: Patient was seen and examined at bedside this morning. She states that overall he is doing slightly worse this morning with increased pain and nausea this morning. It is controlled with Dilaudid [employer] and Zofran but was reportedly worse during the night. She is scheduled for surgery with Dr. Machuca and Dr. Mroris in this afternoon. All questions were answered. - Constitutional Vitals: Temp Pulse Resp BP Pulse Ox 98.1 F 83 20 114/65 95 06/04/17 11:56 06/04/17 14:00 06/04/17 14:00 06/04/17 14:00 06/04/17 14:00 General appearance: Present: A&O X 3, morbidly obese, pleasant, no acute distress, answers questions appropriately Exam: Gen.: Vitals noted. No acute distress. AAOx3 HEENT: PERRL/EOMI, oropharynx clear, Normocephalic, atraumatic Cardiac: RRR, no murmur, +S1/S2 Pulmonary: CTA bilaterally, no wheezes, rales or rhonchi, equal chest expansion Abdomen: soft, involuntary guarding present, rebound tenderness present, tender to palpation diffusely with greatest prominence and right upper quadrant MSK: ROM intact, no joint swelling noted Extremities: no BLE edema, nontender calf, no cyanosis or clubbing Neuro: A&Ox3, moves all extremities, no focal deficits Psych: Appropriate mood and behavior Internal Medicine: Result - Labs CBC & Chem 7: 06/04/17 05:46 06/04/17 05:46 Labs: Short CBC 06/04/17 Range/Units 05:46 WBC 8.3 (4.3-11.1) K/mcL Hgb 10.4 L (11.5-15.4) g/dL Hct 32.8 L (35.3-44.9) % Plt Count 243 (140-400) K/mcL Neutrophils # 5.2 (1.6-8.9) K/mcL BMP 06/04/17 05:46 Sodium 140 Potassium 3.3 L Chloride 107 Carbon Dioxide 30 H BUN 10 Creatinine 0.82 Glucose 152 H Calcium 7.9 L Liver Function 06/04/17 Range/Units 05:46 Total Bilirubin 0.3 (0.3-1.0) mg/dL AST 11 L (13-39) Units/L ALT 8 (7-52) Units/L Alkaline Phosphatase 41 (34-104) Units/L Albumin 2.7 L (3.5-5.7) g/dL - ABG Interpretation ABG results: PT/INR, D-dimer PT 13.8 Seconds (9.4-12.1) H 05/30/17 06:42 - VTE Documentation of Mechanical Device: Intermittent pneumatic compression device Consult Discharge Plan - Plan Referrals: Kole Barksdale MD [Primary Care Provider] - 06/08/17 9:45 am <John Browne - Last Filed: 06/04/17 18:06> Date of Encounter: 06/04/17 - Assessment and plan (1) Diverticulitis large intestine Current Visit: Yes Status: Acute Qualifiers: Diverticulitis bleeding: without bleeding Diverticulitis complication: with perforation and abscess Qualified Code(s): K57.20 - Diverticulitis of large intestine with perforation and abscess without bleeding (2) HTN (hypertension) Current Visit: Yes Status: Acute Qualifiers: Hypertension type: essential hypertension Qualified Code(s): I10 - Essential (primary) hypertension (3) Hypothyroidism Current Visit: Yes Status: Acute Qualifiers: Hypothyroidism type: acquired Qualified Code(s): E03.9 - Hypothyroidism, unspecified (4) Morbid obesity with BMI of 45.0-49.9, adult Current Visit: Yes Status: Acute - Constitutional Vitals: Temp Pulse Resp BP Pulse Ox 98.1 F 83 20 114/65 95 06/04/17 11:56 06/04/17 14:00 06/04/17 14:00 06/04/17 14:00 06/04/17 14:00 Internal Medicine: Result - Labs CBC & Chem 7: 06/04/17 05:46 06/04/17 05:46 Labs: Short CBC 06/04/17 Range/Units 05:46 WBC 8.3 (4.3-11.1) K/mcL Hgb 10.4 L (11.5-15.4) g/dL Hct 32.8 L (35.3-44.9) % Plt Count 243 (140-400) K/mcL Neutrophils # 5.2 (1.6-8.9) K/mcL BMP 06/04/17 05:46 Sodium 140 Potassium 3.3 L Chloride 107 Carbon Dioxide 30 H BUN 10 Creatinine 0.82 Glucose 152 H Calcium 7.9 L Liver Function 06/04/17 Range/Units 05:46 Total Bilirubin 0.3 (0.3-1.0) mg/dL AST 11 L (13-39) Units/L ALT 8 (7-52) Units/L Alkaline Phosphatase 41 (34-104) Units/L Albumin 2.7 L (3.5-5.7) g/dL - ABG Interpretation ABG results: PT/INR, D-dimer PT 13.8 Seconds (9.4-12.1) H 05/30/17 06:42 - Attending Attestation I examined this patient and my medical decision-making was reviewed with the Resident Physician on 06/04/17. I agree with the documented findings, disposition and treatment plan as described except to the extent set forth below. Ms Mitchell is currently admitted for perf sigmoid diverticulum with abscess. She is going to OR today. She remains moderate to high risk due to potential for worsening clinical status. She remains on TPN. Ms Mitchell is awaiting surgery today. Slept OK. Pain OK. No fever or chills. Exam Alert Comfortable Mucus membranes dry Not tachy No wheeze I/P 1. Perf sigmoid diverticulum 2. HTN Further diagnoses and plan as above.
[2017-06-04] MEDS ORDERED: Clinimix E 5%-15% SOLUTION 2,000 ML, Parenteral Amino Acid 10% 200 ML with MVI, adult ... IVC SCH ×4 (17:00→19:40)
[2017-06-04] MEDS ORDERED: ROPIVACAINE HCL/PF 0.5% 30 ML VIAL ONE (17:03)
[2017-06-04] MEDS ORDERED: Neostigmine Methylsulfate 3 MG/3 ML SYRINGE ONE (17:26)
[2017-06-04] MEDS ORDERED: *HR* Promethazine 25 MG/ML VIAL IVP PRN (18:09)
--- NOTE | 2017-06-04 18:19 | Operative Note ---
Date of procedure: 06/04/17 Pre-op diagnosis: acute perforated sigmoid diverticulitis Post-op diagnosis: same Procedure: exploratory celiotomy, sigmoid colectomy with stapled colo colonic anastomosis, intra operative rigid sigmoidoscopy Complications: none apparent Anesthesia: DARLING Surgeon: Michele Machuca Was there an professional nursing assistant present: No Estimated blood loss (cc): 800 IV fluids (cc): 2,500 (740 mL albumin) Specimen: sigmoid colectomy with anastomotic rings Disposition: PACU Procedure in Detail: Prior to surgery, anesthesia had placed an epidural catheter for perioperative pain control. The patient was then brought to the operating room where she was placed supine upon the operating room table. The patient was appropriately identified as to person and procedure. The accuracy of this information was confirmed by the patient and the procedure team. The patient was then intubated and anesthetized under the supervision of Dr. Adan Moore. The patient was placed in high lithotomy position to facilitate cystoscopy and ureteral stent placement by Dr. Bradshaw. This portion of the procedure was dictated by Dr Bradshaw under a separate cover. Once this was completed. The patient was repositioned into low lithotomy position. The perineum and rectum were prepped with Betadine, the abdomen was prepped with chlorhexidine and draped under sterile conditions. A midline incision from just above the umbilicus to the pubic tubercle was made with the #10 scalpel. Dissection was carried through the subcutaneous tissue to the fascia. Bleeding points were controlled with electrocautery. The fascia was divided in the midline along the linea alba. The abdomen was entered atraumatically. Exposure was facilitated by use of a self-retaining Omni tract retractor. An exploration was completed. The liver stomach and spleen appeared normal the omentum was adherent into the pelvis and this was dissected free with the aid of the Covidien Impact dissector. The sigmoid colon was markedly inflamed with thickening and dense adhesions to the surrounding tissues. No abscess was identified. The lateral peritoneal reflection was incised with dissection extending into the pelvis as well as cephalad into the upper left abdomen. Near the junction of the descending and sigmoid colon mesentery was divided and the bowel was transected with the aid of a Ethicon TX 60 mm stapler. A Roma clamp was applied distally the bowel was transected. The mesentery was then divided with the aid of the Covidien Impact dissector. Left colic vessels were transected between curved Kristina clamps and ligated with 2-0 silk ligatures. A section was carried into the pelvis. The mesial rectum is divided allowing the colon near the rectosigmoid to be skeletonized. The bowel was transected with a second application of the Ethicon TX 60 mm stapler. The sigmoid colon was removed from the field. The peritoneal dissection was extended cephalad until sufficient mobilization of the descending colon was obtained. The distal end of the descending colon was transected with a pursestring device. The bowel measured to 29 mm. This allowed me to select a 29 mm ECS EEA stapler. The anvil was placed in the distal descending colon. The pursestring was secured. The EEA stapler was introduced rectally and advanced to the staple line in the Emily pouch. The spike was deployed, the anvil was attached. A stapled, end to end, colocolonic anastomosis was completed. 2 intact anastomotic rings were removed from the EEA stapler. The pelvis was filled with saline. A rigid sigmoidoscope was introduced rectally. The staple line appeared visually intact. On insufflation of the bowel, a string of bubbles was evident within the pelvic fluid. An anterior anastomotic leak was identified. This was closed with interrupted [id number] 3-0 silk. The rigid sigmoidoscopy was repeated with no obvious anastomotic abnormalities visualized nor a recurrent string of bubbles created and insufflating the bowel. The bowel was decompressed, the stapler was removed. The pelvis was then inspected for adequate hemostasis and sponge count was completed and found to be correct. Closure was then initiated. The peritoneum was approximated with running interlocking 0 Vicryl. The fascia was approximated with interrupted figure-of- eight 0 Vicryl. The subcutaneous tissue was approximated with running 3-0 Vicryl. The skin edges were approximated with enedina. Dry sterile dressings were applied. The patient's position was then altered to all tape placement of a central venous line via the left subclavian vein. The left anterior chest and shoulder was prepped with chlorhexidine and draped under sterile conditions a whole body drape was used. The surgeon had regowned and gloved for this procedure. Using an 18-gauge needle the left subclavian vein was located. In the technique described by Seldinger, a guidewire was inserted, the needle extracted. At no time was air aspirated. The skin tract was incised and dilated. A 16 cm, 3 lumen Arrow-King, 7-Khmer catheter was then advanced over the guidewire to 15 cm. The guidewire was removed. The catheter was secured to the anterior chest wall with interrupted 3-0 silk. The 3 ports aspirated easily for blood and flushed with saline. A Biopatch was applied followed by an OpSite dressing. The patient was taken to recovery in stable condition. Needle, sponge, and instrument counts were correct at the close of the case. In PACU, a chest x-ray and KUB were obtained. The chest x-ray showed adequate positioning of the central venous line with no evidence of a pneumothorax. The KUB demonstrated appropriate positioning of a double-J ureteral catheter in the right ureter. The left ureteral stent was extracted and found to be intact. The Don was left in situ.
--- NOTE | 2017-06-04 18:55 | Anesthesia Evaluation Post Op ---
Date of Encounter: 06/04/17 Time of Encounter: 19:00 - Vital Signs Vital Signs: Vital Signs/O2 Sat/Glucose, Most Current Temp Pulse Resp BP Pulse Ox 06/04/17 18:52 98.1 F 70 16 95/61 94 06/04/17 18:37 96.3 F L 69 14 103/44 98 06/04/17 18:27 75 16 103/52 97 06/04/17 18:17 75 16 107/88 99 06/04/17 18:07 96.9 F L 86 14 92/62 98 - Lungs Lungs: Clear Ascult./Percussion - Airway Airway: Non-obstructed - Cardiovascular Regular Rate - Mental Status Mental Status: Alert & Oriented, Answers Appropriately - Pain Pain Scale: 0 - Nausea Vomiting Nausea Vomiting: Not Present - Hydration Hydration: NPO - Discharge PostOp Status: Transfer Patient to floor
[2017-06-04] MEDS ORDERED: Dextrose Gel 15 GM/37.5 ML TUBE PO PRN (19:40)
[2017-06-04] MEDS ORDERED: *HR* Dextrose 50 % in Water (Syg) 50 ML SYRINGE IVP PRN (19:40)
[2017-06-04] MEDS ORDERED: D10% in Water 500 ML IVC PRN (19:40)
[2017-06-04] MEDS ORDERED: Naloxone 0.4 MG/ML INJ IVP PRN (19:40)
[2017-06-04] MEDS ORDERED: D5% in Water 1,000 ML IVC PRN (19:40)
[2017-06-04] MEDS: 0.9 % Sodium Chloride 1,000 ML IVC SCH (22:18)
[2017-06-04] MEDS: Ropivacaine/PF 0.2% 200 MG/100 ML INFUS..BTL EP SCH (22:28)
[2017-06-05] MEDS: Insulin LISPRO 300 UNITS/3 ML VIAL SQ SCH ×4 (00:51→18:08)
[2017-06-05] MEDS: MetroNIDAZOLE 500 MG/100 ML 500 MG/100 ML BAG IVPB SCH ×4 (03:16→20:55)
[2017-06-05 05:24] LABS: Hematocrit 29.9 % (35.3-44.9); Hemoglobin 9.6 g/dL (11.5-15.4); Mean Corpuscular HGB Conc 32.1 g/dL (31.6-35.5); Mean Corpuscular Hemoglobin 30.2 pg (28.0-33.3); Platelet Count 226 K/mcL (140-400); Red Blood Count 3.18 M/mcL (3.82-4.97); Red Cell Distribution Width 13.2 % (11.5-14.5)
[2017-06-05 05:34] LABS: Alanine Aminotransferase 6 Units/L (7-52); Albumin 3.2 g/dL (3.5-5.7); Albumin/Globulin Ratio 1.2 (1.1-2.2); Alkaline Phosphatase 37 Units/L (34-104); Aspartate Amino Transferase 13 Units/L (13-39); BUN/Creatinine Ratio 16 (6-26); Bilirubin,Total 0.4 mg/dL (0.3-1.0); Blood Urea Nitrogen 15 mg/dL (8-23); Calcium 8.3 mg/dL (8.6-10.3); Carbon Dioxide 25 mEq/L (23-29); Chloride 107 mEq/L (98-107); Globulin 2.6 g/dL (2.4-3.5); Glucose 195 mg/dL (70-105); Osmolality,Calculated 290 (280-300); Potassium 4.2 mEq/L (3.5-5.1); Sodium 137 mEq/L (136-145); Total Protein 5.8 g/dL (6.4-8.9); eGFR For African Americans > 60 (> 60); eGFR For Non-African Americans 59 (> 60)
[2017-06-05 05:46] LABS: Lymphocytes # 0.7 K/mcL (0.6-4.6); Monocytes # 0.3 K/mcL (0.0-1.3); Neutrophils # 11.4 K/mcL (1.6-8.9); Platelet Estimate Normal (Normal)
[2017-06-05 05:47] LABS: Reactive Lymphocytes Present (Not Present)
[2017-06-05] MEDS: Levothyroxine Sodium 100 MCG VIAL IVP SCH (05:51)
[2017-06-05] MEDS ORDERED: *HR* HYDROmorphone (PF) 1 MG/ML SYRINGE IM ONE (06:51)
[2017-06-05] MEDS ORDERED: *HR* HYDROmorphone (PF) 1 MG/ML SYRINGE IVP ONE (07:45)
[2017-06-05] MEDS: Pantoprazole 40 MG VIAL IVP SCH (09:22)
--- NOTE | 2017-06-05 09:27 | Urology Progress Note ---
Date of Encounter: 06/05/17 Time of Encounter: 09:24 - Assessment and Plan (1) Hydronephrosis Current Visit: Yes Status: Acute Assessment and plan: sp stenting. patient will be scheduled for removal of stent in 3-4 weeks in the office. ok to remove catheter per primary team. Qualifiers: Hydronephrosis type: other Qualified Code(s): N13.39 - Other hydronephrosis (2) Urinary urgency Current Visit: Yes Status: Acute Progress Note Narrative: Patient is pod 1. feeling ok. urine clear. KUB shows good position of right ureteral stent. good uop. Objective Initial Vital Signs Temp Pulse Resp BP Pulse Ox 98.5 F 98 24 174/84 97 05/29/17 08:22 05/29/17 08:22 05/29/17 08:22 05/29/17 08:22 05/29/17 08:22 - General physical appearance Present: well developed - Abdomen Present: soft - Labs 06/05/17 04:35 06/05/17 04:35 Diabetes panel 06/05/17 Range/Units 04:35 Sodium 137 (136-145) mEq/L Potassium 4.2 D (3.5-5.1) mEq/L Chloride 107 (98-107) mEq/L Carbon Dioxide 25 (23-29) mEq/L BUN 15 (8-23) mg/dL Creatinine 0.95 (0.60-1.20) mg/dL Glucose 195 H (70-105) mg/dL Calcium 8.3 L (8.6-10.3) mg/dL AST 13 (13-39) Units/L ALT 6 L (7-52) Units/L Alkaline Phosphatase 37 (34-104) Units/L Albumin 3.2 L (3.5-5.7) g/dL Calcium panel 06/05/17 Range/Units 04:35 Calcium 8.3 L (8.6-10.3) mg/dL Albumin 3.2 L (3.5-5.7) g/dL Pituitary panel 06/05/17 Range/Units 04:35 Sodium 137 (136-145) mEq/L Potassium 4.2 D (3.5-5.1) mEq/L Chloride 107 (98-107) mEq/L Carbon Dioxide 25 (23-29) mEq/L BUN 15 (8-23) mg/dL Creatinine 0.95 (0.60-1.20) mg/dL Glucose 195 H (70-105) mg/dL Calcium 8.3 L (8.6-10.3) mg/dL Adrenal panel 06/05/17 Range/Units 04:35 Sodium 137 (136-145) mEq/L Potassium 4.2 D (3.5-5.1) mEq/L Chloride 107 (98-107) mEq/L Carbon Dioxide 25 (23-29) mEq/L BUN 15 (8-23) mg/dL Creatinine 0.95 (0.60-1.20) mg/dL Glucose 195 H (70-105) mg/dL Calcium 8.3 L (8.6-10.3) mg/dL Total Bilirubin 0.4 (0.3-1.0) mg/dL AST 13 (13-39) Units/L ALT 6 L (7-52) Units/L Alkaline Phosphatase 37 (34-104) Units/L Albumin 3.2 L (3.5-5.7) g/dL - VTE Documentation of Mechanical Device: Intermittent pneumatic compression device Consult Discharge Plan - Plan Referrals: Kole Barksdale MD [Primary Care Provider] - 06/08/17 9:45 am
--- NOTE | 2017-06-05 10:23 | Internal Med Progress Note ---
<MilindLeland alford - Last Filed: 06/05/17 14:03> Date of Encounter: 06/05/17 Time of Encounter: 10:21 - Assessment and plan (1) Perforated diverticulum Current Visit: Yes Status: Acute Assessment and plan: - ABD CT with multiple left sided colon and sigmoid diverticula with wall thickening and extraluminal gas/pneumoperitoneum consistent with acute perforated diverticulitis. - Repeat abdominal CT on 06/02/17 showing 1.17 cm x 3.9 cm x 2.7 cm abscess inferior to the proximal sigmoid colon, increased inflammation of the mesentery , new minimal right hydronephrosis suggestive of uriritis - POD #1 s/p sigmoid colectomy with stapled colocolonic anastomosis - Mild fever of 99.3, WBC of 12.4 with left shift. Most likely reactive following surgery. - Pain controlled with epidural - No complaints of nausea. Phenergren and Zofran PRN nausea - TPN running. NPO for Bowel rest. Minimal BS appreciated. Plan - Has been receiving IV Cipro, metronidazole, day 8 - Epidural for pain control. - General surgery following - Transfer to another floor pending availability (2) Diverticulitis Current Visit: Yes Status: Acute Assessment and plan: as above (3) HTN (hypertension) Current Visit: Yes Status: Acute Assessment and plan: - BP well controlled at this visit. Most recent of 114/ - Holding home BP meds due to NPO status Plan - Continue hydralazine IV PRN hypertension - Monitor given high amount of pain medications Qualifiers: Hypertension type: essential hypertension Qualified Code(s): I10 - Essential (primary) hypertension (4) Hypothyroidism Current Visit: Yes Status: Acute Assessment and plan: Continue IV levothyroxine while nothing by mouth Qualifiers: Hypothyroidism type: acquired Qualified Code(s): E03.9 - Hypothyroidism, unspecified (5) Obesity Current Visit: Yes Status: Chronic Assessment and plan: BMI 46, weight 131kg. lifestyle modifications encouraged as outpatient Qualifiers: Obesity type: due to excess calories Serious obesity comorbidity presence: without serious comorbidity Body mass index: BMI 45.0-49.9 Qualified Code(s) : E66.01 - Morbid (severe) obesity due to excess calories; Z68.42 - Body mass index (BMI) 45.0-49.9, adult; Z68.42 - Body mass index (BMI) 45.0-49.9, adult; Z68.42 - Body mass index (BMI) 45.0-49.9, adult; Z68.42 - Body mass index (BMI) 45.0-49.9, adult (6) Hypoxia Current Visit: Yes Status: Acute Assessment and plan: - Oxygen saturation down to 84% on room air on admission. 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 Plan - Supplemental O2 as necessary. Aggressive IS. - Will continue to monitor and attempt to wean. -Also encouraged to seated position (7) Cystitis Current Visit: Yes Status: Acute Assessment and plan: - ABD CT with thickening of bladder wall and questionable incomplete distention versus cystitis with mild hydronephrosis - Continue Cipro and Flagyl as above - Urology to place ureteral stent during surgery. Should follow up with urology as outpatient for stent removal. - Following, appreciate recs (8) DVT prophylaxis Current Visit: Yes Status: Acute Assessment and plan: heparin 5000 units q8 hours - Time Spent With Patient 25 - 35 minutes - Subjective Interval history: Patient was seen and examined at bedside this morning. She states she is doing well with no residual pain. She tolerated the surgery yesterday without complications. She has no complaints of nausea, vomiting, fevers, chills at this time. She is expressing no flatus and no bowel movements yet. - Constitutional Vitals: Temp Pulse Resp BP Pulse Ox 99.4 F 88 15 107/60 97 06/05/17 07:57 06/05/17 07:57 06/05/17 07:57 06/05/17 07:57 06/05/17 07:57 General appearance: Present: A&O X 3, morbidly obese, pleasant, no acute distress, answers questions appropriately Exam: Gen.: Vitals noted. No acute distress. AAOx3 HEENT: PERRL/EOMI, oropharynx clear, Normocephalic, atraumatic Cardiac: RRR, no murmur, +S1/S2 Pulmonary: CTA bilaterally, no wheezes, rales or rhonchi, equal chest expansion Abdomen: soft, nontender, BS absent, no guarding - Dressing intact on midline abdomen. No discharge, drainage, erythema, warmth. MSK: ROM intact, no joint swelling noted Extremities: no BLE edema, nontender calf, no cyanosis or clubbing Neuro: A&Ox3, moves all extremities, no focal deficits Psych: Appropriate mood and behavior Internal Medicine: Result - Labs CBC & Chem 7: 06/05/17 04:35 06/05/17 04:35 Labs: Short CBC 06/05/17 Range/Units 04:35 WBC 12.4 H (4.3-11.1) K/mcL Hgb 9.6 L (11.5-15.4) g/dL Hct 29.9 L (35.3-44.9) % Plt Count 226 (140-400) K/mcL Neutrophils # 11.4 H (1.6-8.9) K/mcL BMP 06/05/17 04:35 Sodium 137 Potassium 4.2 D Chloride 107 Carbon Dioxide 25 BUN 15 Creatinine 0.95 Glucose 195 H Calcium 8.3 L Liver Function 06/05/17 Range/Units 04:35 Total Bilirubin 0.4 (0.3-1.0) mg/dL AST 13 (13-39) Units/L ALT 6 L (7-52) Units/L Alkaline Phosphatase 37 (34-104) Units/L Albumin 3.2 L (3.5-5.7) g/dL - ABG Interpretation ABG results: PT/INR, D-dimer PT 13.8 Seconds (9.4-12.1) H 05/30/17 06:42 - Impressions Impressions Chest X-Ray 06/04/17 18:14 IMPRESSION: 1. Right-sided PICC tip is in the expected location, superimposed over the lower superior vena cava. 2. There is a 2nd central venous catheter identified on the chest, with an unusual course, presumably a left subclavian catheter, with its tip superimposed over the upper superior vena cava. 3. No pneumothoraces. 4. Mild left patchy basilar airspace disease, atelectasis versus pneumonia versus asymmetric edema. 5. Right ureteral stent in place, with the pigtails in the expected location. D/ / Nestor Sue MD / Nestor Sue MD Interpreting Provider: Nestor Sue MD X-Ray 06/04/17 18:14 IMPRESSION: 1. Right-sided PICC tip is in the expected location, superimposed over the lower superior vena cava. 2. There is a 2nd central venous catheter identified on the chest, with an unusual course, presumably a left subclavian catheter, with its tip superimposed over the upper superior vena cava. 3. No pneumothoraces. 4. Mild left patchy basilar airspace disease, atelectasis versus pneumonia versus asymmetric edema. 5. Right ureteral stent in place, with the pigtails in the expected location. D/ / Nestor Sue MD / Nestor Sue MD Interpreting Provider: Nestor Sue MD - VTE Documentation of Mechanical Device: Intermittent pneumatic compression device Consult Discharge Plan - Plan Referrals: Kole Barksdale MD [Primary Care Provider] - 06/08/17 9:45 am <John Browne - Last Filed: 06/05/17 18:27> Date of Encounter: 06/05/17 - Assessment and plan (1) Diverticulitis large intestine Current Visit: Yes Status: Acute Qualifiers: Diverticulitis bleeding: without bleeding Diverticulitis complication: with perforation and abscess Qualified Code(s): K57.20 - Diverticulitis of large intestine with perforation and abscess without bleeding (2) HTN (hypertension) Current Visit: Yes Status: Acute Qualifiers: Hypertension type: essential hypertension Qualified Code(s): I10 - Essential (primary) hypertension (3) Hypothyroidism Current Visit: Yes Status: Acute Qualifiers: Hypothyroidism type: acquired Qualified Code(s): E03.9 - Hypothyroidism, unspecified (4) Morbid obesity with BMI of 45.0-49.9, adult Current Visit: Yes Status: Chronic (5) History of open sigmoidectomy Current Visit: Yes Status: Chronic - Constitutional Vitals: Temp Pulse Resp BP Pulse Ox 98.1 F 85 16 125/71 96 06/05/17 12:41 06/05/17 12:41 06/05/17 12:41 06/05/17 12:41 06/05/17 12:41 Internal Medicine: Result - Labs CBC & Chem 7: 06/05/17 04:35 06/05/17 04:35 Labs: Short CBC 06/05/17 Range/Units 04:35 WBC 12.4 H (4.3-11.1) K/mcL Hgb 9.6 L (11.5-15.4) g/dL Hct 29.9 L (35.3-44.9) % Plt Count 226 (140-400) K/mcL Neutrophils # 11.4 H (1.6-8.9) K/mcL BMP 06/05/17 04:35 Sodium 137 Potassium 4.2 D Chloride 107 Carbon Dioxide 25 BUN 15 Creatinine 0.95 Glucose 195 H Calcium 8.3 L Liver Function 06/05/17 Range/Units 04:35 Total Bilirubin 0.4 (0.3-1.0) mg/dL AST 13 (13-39) Units/L ALT 6 L (7-52) Units/L Alkaline Phosphatase 37 (34-104) Units/L Albumin 3.2 L (3.5-5.7) g/dL - ABG Interpretation ABG results: PT/INR, D-dimer PT 13.8 Seconds (9.4-12.1) H 05/30/17 06:42 - Impressions Impressions Chest X-Ray 06/04/17 18:14 IMPRESSION: 1. Right-sided PICC tip is in the expected location, superimposed over the lower superior vena cava. 2. There is a 2nd central venous catheter identified on the chest, with an unusual course, presumably a left subclavian catheter, with its tip superimposed over the upper superior vena cava. 3. No pneumothoraces. 4. Mild left patchy basilar airspace disease, atelectasis versus pneumonia versus asymmetric edema. 5. Right ureteral stent in place, with the pigtails in the expected location. D/ / Nestor Sue MD / Nestor Sue MD Interpreting Provider: Nestor Sue MD X-Ray 06/04/17 18:14 IMPRESSION: 1. Right-sided PICC tip is in the expected location, superimposed over the lower superior vena cava. 2. There is a 2nd central venous catheter identified on the chest, with an unusual course, presumably a left subclavian catheter, with its tip superimposed over the upper superior vena cava. 3. No pneumothoraces. 4. Mild left patchy basilar airspace disease, atelectasis versus pneumonia versus asymmetric edema. 5. Right ureteral stent in place, with the pigtails in the expected location. D/ / Nestor Sue MD / Nestor Sue MD Interpreting Provider: Nestor Sue MD - Attending Attestation I examined this patient and my medical decision-making was reviewed with the Resident Physician on 06/05/17. I agree with the documented findings, disposition and treatment plan as described except to the extent set forth below. Ms Mitchell is currently admitted for acute perforated sigmoid diverticulitis with abscess. She is s/p resection yesterday. She remains moderate to high risk due to potential for worsening clinical status as well as need for multiple meds and epidural pain pump. Ms Mitchell is feeling OK. Pain controlled at this time. Feels very tired. No fever. No nausea at this time. Exam alert. Comfortable Mucus membranes dry Heart reg No wheeze Abd soft I/P 1. Perf diverticulum 2. abscess s/p resection Further diagnoses and plan as above.
[2017-06-05] MEDS: Ropivacaine/PF 0.2% 200 MG/100 ML INFUS..BTL EP SCH (10:50)
--- NOTE | 2017-06-05 11:40 | General Surgery Progress Note ---
Date of Encounter: 06/05/17 Time of Encounter: 11:27 Subjective Patient reports: still having pain Narrative: General Surgery POD #1 patient feeling better; pain has been well controlled with epidural though this am had brief episode breakthru pain. No nausea or vomiting. Maximum temperature 99.4, pulse 88, respirations 15, but pressure 107/60-114/ 67; is PO2 on 2 L/min nasal cannula 93-97% Lungs: Clear bilaterally, no obvious abdominal pain with deep inspiration Cardiac: Regular rate, no appreciable murmurs Abdomen: Midline incision clean and dry; dressing removed. A few bowel sounds are audible. Minimal tenderness but controlled with epidural analgesia. Urine output: 1450 mL so far today. Urine slightly bloody likely due to cystoscopy and ureteral stent placement. Laboratories: White count 12.4, hemoglobin 9.6 with hematocrit 29.9; platelet count 226,000. Neutrophils have increased 8.0% The leukocytosis and neutrophilia is likely response to surgery Electrolytes, BUN, creatinine within normal limits; hypokalemia corrected to 4.2. LFTs within normal limits, serum albumin 3.2 with total protein 5.8 - both below lower limits of normal but patient on TPN. Impression: Acute sigmoid diverticulitis with perforation; postoperative day 1 status post sigmoid colectomy with stapled colocolonic anastomosis. Acceptable postoperative status Plan: encourage continued incentive spirometry and activity out of bed repeat labs in AM maintain NPO until bowel function returns; continue TPN maintain harry for accurate post op I&O; patient with Epidural for post op analgesia - harry necessary for anticipated urinary bladder dysfunction Objective Vital Signs - Last 8 Hours Temp Pulse Resp BP Pulse Ox 06/05/17 07:57 99.4 F 88 15 107/60 97 06/05/17 03:35 99.3 F 89 18 114/67 93 Intake and Output 06/04/17 06/05/17 06/05/17 23:59 07:59 15:59 Intake Total 100 / 100 100 / 100 Output Total 1600 / 1600 650 / 650 800 / 800 Balance -1500 / -1500 -550 / -550 -800 / -800 Intake: IV Fluids 100 / 100 100 / 100 Flagyl Premix 500 MG/100 ML 500 100 / 100 100 / 100 mg In 100 ml @ 100 mls/hr IVPB Q6H [facility] Rx#:[id number] Oral 0 / 0 0 / 0 Output: Urine 500 / 500 Estimated Blood Loss 800 / 800 Catheter 300 / 300 650 / 650 800 / 800 Other: Weight 127.2 kg Blood Glucose* 195 225 Patient Weight 06/05/17 23:59 Weight 127.2 kg - Labs 06/05/17 04:35 06/05/17 04:35 Diabetes panel 06/05/17 Range/Units 04:35 Sodium 137 (136-145) mEq/L Potassium 4.2 D (3.5-5.1) mEq/L Chloride 107 (98-107) mEq/L Carbon Dioxide 25 (23-29) mEq/L BUN 15 (8-23) mg/dL Creatinine 0.95 (0.60-1.20) mg/dL Glucose 195 H (70-105) mg/dL Calcium 8.3 L (8.6-10.3) mg/dL AST 13 (13-39) Units/L ALT 6 L (7-52) Units/L Alkaline Phosphatase 37 (34-104) Units/L Albumin 3.2 L (3.5-5.7) g/dL Calcium panel 06/05/17 Range/Units 04:35 Calcium 8.3 L (8.6-10.3) mg/dL Albumin 3.2 L (3.5-5.7) g/dL Pituitary panel 06/05/17 Range/Units 04:35 Sodium 137 (136-145) mEq/L Potassium 4.2 D (3.5-5.1) mEq/L Chloride 107 (98-107) mEq/L Carbon Dioxide 25 (23-29) mEq/L BUN 15 (8-23) mg/dL Creatinine 0.95 (0.60-1.20) mg/dL Glucose 195 H (70-105) mg/dL Calcium 8.3 L (8.6-10.3) mg/dL Adrenal panel 06/05/17 Range/Units 04:35 Sodium 137 (136-145) mEq/L Potassium 4.2 D (3.5-5.1) mEq/L Chloride 107 (98-107) mEq/L Carbon Dioxide 25 (23-29) mEq/L BUN 15 (8-23) mg/dL Creatinine 0.95 (0.60-1.20) mg/dL Glucose 195 H (70-105) mg/dL Calcium 8.3 L (8.6-10.3) mg/dL Total Bilirubin 0.4 (0.3-1.0) mg/dL AST 13 (13-39) Units/L ALT 6 L (7-52) Units/L Alkaline Phosphatase 37 (34-104) Units/L Albumin 3.2 L (3.5-5.7) g/dL - VTE Documentation of Mechanical Device: Intermittent pneumatic compression device Consult Discharge Plan - Plan Referrals: Kole Barksdale MD [Primary Care Provider] - 06/08/17 9:45 am
[2017-06-05] MEDS ORDERED: Clinimix E 5%-15% SOLUTION 2,000 ML, Parenteral Amino Acid 10% 200 ML with MVI, adult ... IVC SCH ×3 (17:00)
--- NOTE | 2017-06-05 19:28 | Anesthesia Progress Note ---
Date of Encounter: 06/05/17 Time of Encounter: 19:00 Anesthesia Note - Note Note: 06/05/17 19:28 Patient comfortable, VSS, epidural site clean. Continue current rate 6cc/hr
[2017-06-06] MEDS: Insulin LISPRO 300 UNITS/3 ML VIAL SQ SCH ×4 (00:13→21:18)
[2017-06-06] MEDS: Ondansetron 4 MG/2 ML VIAL IVP PRN ×3 (01:09→17:19)
[2017-06-06] MEDS: MetroNIDAZOLE 500 MG/100 ML 500 MG/100 ML BAG IVPB SCH ×4 (03:08→21:05)
[2017-06-06 03:30] LABS: Hematocrit 29.8 % (35.3-44.9); Hemoglobin 9.6 g/dL (11.5-15.4); Mean Corpuscular HGB Conc 32.2 g/dL (31.6-35.5); Mean Corpuscular Hemoglobin 30.2 pg (28.0-33.3); Mean Corpuscular Volume 93.7 fL (83.0-100.0); Mean Platelet Volume 8.7 fL (9.4-12.4); Platelet Count 210 K/mcL (140-400); Red Blood Count 3.18 M/mcL (3.82-4.97); Red Cell Distribution Width 13.2 % (11.5-14.5)
[2017-06-06 03:43] LABS: BUN/Creatinine Ratio 19 (6-26); Blood Urea Nitrogen 16 mg/dL (8-23); Carbon Dioxide 26 mEq/L (23-29); Chloride 107 mEq/L (98-107); Glucose 209 mg/dL (70-105); Osmolality,Calculated 299 (280-300); Potassium 3.6 mEq/L (3.5-5.1); Sodium 141 mEq/L (136-145); eGFR For African Americans > 60 (> 60); eGFR For Non-African Americans > 60 (> 60)
[2017-06-06 04:20] LABS: Platelet Clumps Few (Not Present); Platelet Estimate Normal (Normal)
[2017-06-06 04:22] LABS: Lymphocytes # 3.3 K/mcL (0.6-4.6); Monocytes # 0.2 K/mcL (0.0-1.3); Neutrophils # 8.3 K/mcL (1.6-8.9)
[2017-06-06] MEDS: Ropivacaine/PF 0.2% 200 MG/100 ML INFUS..BTL EP SCH ×2 (05:02→19:30)
[2017-06-06] MEDS: Levothyroxine Sodium 100 MCG VIAL IVP SCH (06:44)
[2017-06-06] MEDS: 0.9 % Sodium Chloride 1,000 ML IVC SCH (06:46)
[2017-06-06] MEDS: Pantoprazole 40 MG VIAL IVP SCH (10:03)
--- NOTE | 2017-06-06 10:05 | Internal Med Progress Note ---
<MinervahaleyLeland alford - Last Filed: 06/06/17 10:02> Date of Encounter: 06/06/17 Time of Encounter: 10:02 - Assessment and plan (1) Perforated diverticulum Current Visit: Yes Status: Acute Assessment and plan: - ABD CT with multiple left sided colon and sigmoid diverticula with wall thickening and extraluminal gas/pneumoperitoneum consistent with acute perforated diverticulitis. - Repeat abdominal CT on 06/02/17 showing 1.17 cm x 3.9 cm x 2.7 cm abscess inferior to the proximal sigmoid colon, increased inflammation of the mesentery , new minimal right hydronephrosis suggestive of uriritis - POD #2 s/p sigmoid colectomy with stapled colocolonic anastomosis - Mild fever of 99 overnight, WBC of 11.8 with left shift, improved from previous. Most likely reactive following surgery. - Pain controlled with epidural - Phenergren and Zofran PRN nausea - TPN running. NPO for Bowel rest. BS appreciated and 1 BM last night. - Diet advancement per surgery. Plan - Has been receiving IV Cipro, metronidazole, day 9 - Epidural for pain control. - General surgery following (2) Diverticulitis Current Visit: Yes Status: Acute Assessment and plan: as above (3) HTN (hypertension) Current Visit: Yes Status: Acute Assessment and plan: - BP well controlled at this visit. Most recent of 118/64 - Holding home BP meds due to NPO status Plan - Continue hydralazine IV PRN hypertension - Monitor given high amount of pain medications Qualifiers: Hypertension type: essential hypertension Qualified Code(s): I10 - Essential (primary) hypertension (4) Hypothyroidism Current Visit: Yes Status: Acute Assessment and plan: Continue IV levothyroxine while nothing by mouth Qualifiers: Hypothyroidism type: acquired Qualified Code(s): E03.9 - Hypothyroidism, unspecified (5) Obesity Current Visit: Yes Status: Chronic Assessment and plan: BMI 46, weight 131kg. lifestyle modifications encouraged as outpatient Qualifiers: Obesity type: due to excess calories Serious obesity comorbidity presence: without serious comorbidity Body mass index: BMI 45.0-49.9 Qualified Code(s) : E66.01 - Morbid (severe) obesity due to excess calories; Z68.42 - Body mass index (BMI) 45.0-49.9, adult; Z68.42 - Body mass index (BMI) 45.0-49.9, adult; Z68.42 - Body mass index (BMI) 45.0-49.9, adult; Z68.42 - Body mass index (BMI) 45.0-49.9, adult (6) Hypoxia Current Visit: Yes Status: Acute Assessment and plan: - Oxygen saturation down to 84% on room air on admission. 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 Has required intermittent O2 during stay - No reported underlying lung disease. Plan - Supplemental O2 as necessary. Aggressive IS. - Will continue to monitor and attempt to wean. -Also encouraged to seated position as pain allows to prevent atelectasis (7) Cystitis Current Visit: Yes Status: Acute Assessment and plan: - ABD CT with thickening of bladder wall and questionable incomplete distention versus cystitis with mild hydronephrosis - Continue Cipro and Flagyl as above - Urology to place ureteral stent during surgery. Should follow up with urology as outpatient for stent removal. - Following, appreciate recs (8) DVT prophylaxis Current Visit: Yes Status: Acute Assessment and plan: heparin 5000 units q8 hours - Time Spent With Patient less than 15 minutes - Subjective Interval history: Patient was seen and examined at bedside this morning. She admits to having a rough night last night due to pain. She states that her epidural was disconnected for about an hour but is handing her pain "OK" right now. She was nauseous last evening which resolved with phenegren. She reports flatus as well as a small bowel movement last night. Denies fevers or chills. - Constitutional Vitals: Temp Pulse Resp BP Pulse Ox 97.9 F 72 16 118/64 98 06/06/17 08:10 06/06/17 08:10 06/06/17 08:10 06/06/17 08:10 06/06/17 08:10 General appearance: Present: A&O X 3, morbidly obese, pleasant, no acute distress, answers questions appropriately Exam: Gen.: Vitals noted. Mild acute distress secondary to suspected pain. mildly diaphoretic. AAOx3 HEENT: PERRL/EOMI, oropharynx clear, Normocephalic, atraumatic Neck: Supple. No adenopathy. Cardiac: RRR, no murmur, +S1/S2 Pulmonary: CTA bilaterally, no wheezes, rales or rhonchi, equal chest expansion Abdomen: soft, mildly tender diffusely, BS present but hypoactive, no guarding MSK: ROM intact, no joint swelling noted Extremities: no BLE edema, nontender calf, no cyanosis or clubbing Neuro: A&Ox3, moves all extremities, no focal deficits Psych: Appropriate mood and behavior Internal Medicine: Result - Labs CBC & Chem 7: 06/06/17 03:00 06/06/17 03:00 Labs: Short CBC 06/06/17 Range/Units 03:00 WBC 11.8 H (4.3-11.1) K/mcL Hgb 9.6 L (11.5-15.4) g/dL Hct 29.8 L (35.3-44.9) % Plt Count 210 (140-400) K/mcL Neutrophils # 8.3 (1.6-8.9) K/mcL BMP 06/06/17 03:00 Sodium 141 Potassium 3.6 Chloride 107 Carbon Dioxide 26 BUN 16 Creatinine 0.85 Glucose 209 H Calcium 8.0 L - ABG Interpretation ABG results: PT/INR, D-dimer PT 13.8 Seconds (9.4-12.1) H 05/30/17 06:42 - VTE Documentation of Mechanical Device: Intermittent pneumatic compression device Consult Discharge Plan - Plan Referrals: Kole Barksdale MD [Primary Care Provider] - 06/08/17 9:45 am <John Browne - Last Filed: 06/06/17 18:33> Date of Encounter: 06/06/17 - Assessment and plan (1) Diverticulitis large intestine Current Visit: Yes Status: Acute Qualifiers: Diverticulitis bleeding: without bleeding Diverticulitis complication: with perforation and abscess Qualified Code(s): K57.20 - Diverticulitis of large intestine with perforation and abscess without bleeding (2) HTN (hypertension) Current Visit: Yes Status: Acute Qualifiers: Hypertension type: essential hypertension Qualified Code(s): I10 - Essential (primary) hypertension (3) Hypothyroidism Current Visit: Yes Status: Acute Qualifiers: Hypothyroidism type: acquired Qualified Code(s): E03.9 - Hypothyroidism, unspecified (4) Morbid obesity with BMI of 45.0-49.9, adult Current Visit: Yes Status: Chronic (5) History of open sigmoidectomy Current Visit: Yes Status: Chronic - Constitutional Vitals: Temp Pulse Resp BP Pulse Ox 97.9 F 73 18 121/56 98 06/06/17 08:10 06/06/17 12:45 06/06/17 12:45 06/06/17 12:45 06/06/17 12:45 Internal Medicine: Result - Labs CBC & Chem 7: 06/06/17 03:00 06/06/17 03:00 Labs: Short CBC 06/06/17 Range/Units 03:00 WBC 11.8 H (4.3-11.1) K/mcL Hgb 9.6 L (11.5-15.4) g/dL Hct 29.8 L (35.3-44.9) % Plt Count 210 (140-400) K/mcL Neutrophils # 8.3 (1.6-8.9) K/mcL BMP 06/06/17 03:00 Sodium 141 Potassium 3.6 Chloride 107 Carbon Dioxide 26 BUN 16 Creatinine 0.85 Glucose 209 H Calcium 8.0 L - ABG Interpretation ABG results: PT/INR, D-dimer PT 13.8 Seconds (9.4-12.1) H 05/30/17 06:42 - Attending Attestation I examined this patient and my medical decision-making was reviewed with the Resident Physician on 06/06/17. I agree with the documented findings, disposition and treatment plan as described except to the extent set forth below. Ms Mitchell is currently admitted for perforated sigmoid diverticulum. She remains moderate to high risk due to potential for worsening clinical status. Ms Mitchell is having more pain and nausea today. Epidural pump not working. No fever. Exam Alert. Moderate distress due to pain. Mucus membranes dry Heart reg No wheeze I/P 1. Perf diverticulum 2. Post op pain Further diagnoses and plan as above.
[2017-06-06] MEDS ORDERED: *HR* HYDROmorphone (PF) 1 MG/ML SYRINGE IVP STA (10:48)
--- NOTE | 2017-06-06 10:53 | General Surgery Progress Note ---
Date of Encounter: 06/06/17 Time of Encounter: 10:40 Subjective Narrative: General Surgery - POD #2 - s/p sigmoid colectomy with stapled colo colonic anastomosis for acute peforated sigmoid diverticulitis The patient was in a great deal of pain thru the night as the epidural "had run out". Epidural was been resumed this morning but the patient is still in pain as the epidural reaches therapeutic levels. The patient has remained afebrile, maximum temperature 90.9, pulse 86, respirations 16, blood pressure 130/66. Lungs: Clear but inspiratory effort diminished due to abdominal pain likely due to the increased abdominal pain related to the ineffective epidural analgesia Abdomen: Soft with active bowel sounds; she describes a small bowel movement early this morning Midline incision with small areas of sanguineous drainage "spots" Urine output: 5450 mL for calendar day 06/05/17; 800 mL so far today Laboratories: White count 11.8, hemoglobin 9.6, hematocrit 29.8; differential within normal limits with resolution of neutrophilia. Electrolytes, BUN, creatinine within normal limits. Pathology: Pending Impression: Postoperative day 2, status post sigmoid colectomy with stapled colocolonic anastomosis for acute perforated sigmoid diverticulitis Postoperative pain expected but exacerbated by ineffective epidural analgesia due to discontinuation of the infusion Return of bowel activity will allow clear liquids though the patient has been cautioned to begin slowly with small amounts of intake Anemia related to the acute inflammatory process as well as acute blood loss in surgery Resolving leukocytosis Plan: Allow clear liquids If clear liquids tolerated without increased abdominal pain, nausea, or vomiting - we will slowly advance diet and taper TPN Provide Dilaudid or 0.5 mg IV as a single dose for breakthrough pain now Maintain harry for I&O as well as continued epidural analgesia Objective Vital Signs - Last 8 Hours Temp Pulse Resp BP Pulse Ox 06/06/17 08:10 97.9 F 72 16 118/64 98 06/06/17 03:28 97.8 F 82 17 113/56 98 Intake and Output 06/05/17 06/06/17 06/06/17 23:59 07:59 15:59 Intake Total 400 / 400 1100 / 1100 Output Total 2800 / 2800 800 / 800 Balance -2400 / -2400 300 / 300 Intake: IV Fluids 400 / 400 1100 / 1100 0.9 % Sodium Chloride 1,000 ML 1000 / 1000 @ 25 mls/hr IVC .Q24H [facility] Rx#: [id number] Cipro Premix 400 MG/200 ML 400 200 / 200 mg In 200 ml @ 200 mls/hr IVPB Q12H [facility] Rx#:[id number] Flagyl Premix 500 MG/100 ML 500 200 / 200 100 / 100 mg In 100 ml @ 100 mls/hr IVPB Q6H [facility] Rx#:[id number] Oral 0 / 0 0 / 0 Output: Catheter 2800 / 2800 800 / 800 Other: Stool Size Smear Stool Consistency soft Stool Color Brown Weight 125.8 kg Blood Glucose* 232 207 Patient Weight 06/06/17 23:59 Weight 125.8 kg - Labs 06/06/17 03:00 06/06/17 03:00 Diabetes panel 06/06/17 Range/Units 03:00 Sodium 141 (136-145) mEq/L Potassium 3.6 (3.5-5.1) mEq/L Chloride 107 (98-107) mEq/L Carbon Dioxide 26 (23-29) mEq/L BUN 16 (8-23) mg/dL Creatinine 0.85 (0.60-1.20) mg/dL Glucose 209 H (70-105) mg/dL Calcium 8.0 L (8.6-10.3) mg/dL Calcium panel 06/06/17 Range/Units 03:00 Calcium 8.0 L (8.6-10.3) mg/dL Pituitary panel 06/06/17 Range/Units 03:00 Sodium 141 (136-145) mEq/L Potassium 3.6 (3.5-5.1) mEq/L Chloride 107 (98-107) mEq/L Carbon Dioxide 26 (23-29) mEq/L BUN 16 (8-23) mg/dL Creatinine 0.85 (0.60-1.20) mg/dL Glucose 209 H (70-105) mg/dL Calcium 8.0 L (8.6-10.3) mg/dL Adrenal panel 06/06/17 Range/Units 03:00 Sodium 141 (136-145) mEq/L Potassium 3.6 (3.5-5.1) mEq/L Chloride 107 (98-107) mEq/L Carbon Dioxide 26 (23-29) mEq/L BUN 16 (8-23) mg/dL Creatinine 0.85 (0.60-1.20) mg/dL Glucose 209 H (70-105) mg/dL Calcium 8.0 L (8.6-10.3) mg/dL - VTE Documentation of Mechanical Device: Intermittent pneumatic compression device Consult Discharge Plan - Plan Referrals: Kole Barksdale MD [Primary Care Provider] - 06/08/17 9:45 am
[2017-06-06] MEDS: *HR* HYDROmorphone (PF) 1 MG/ML SYRINGE IVP PRN ×2 (13:45→17:08)
[2017-06-06] MEDS: *HR* Promethazine 25 MG/ML VIAL IVP PRN ×2 (14:38→21:06)
[2017-06-06] MEDS ORDERED: Clinimix E 5%-15% SOLUTION 2,000 ML, Parenteral Amino Acid 10% 200 ML with MVI, adult ... IVC SCH ×3 (17:00)
[2017-06-06] MEDS: *HR* HYDROmorphone 2 MG/ML SYRINGE IVP PRN (18:34)
--- NOTE | 2017-06-06 19:32 | Anesthesia Progress Note ---
Date of Encounter: 06/06/17 Time of Encounter: 18:45 Anesthesia Note - Note Note: 06/06/17 19:30 Epidural pump malfunctioned. Patient severe pain. Acquired new pump and bolused patient 8cc 0.2% Ropivacaine. Pain decreased significantly. Rate 6cc/hr. VSS. Epidural site clean
[2017-06-07] MEDS: *HR* HYDROmorphone 2 MG/ML SYRINGE IVP PRN ×5 (00:58→15:10)
[2017-06-07] MEDS: Ondansetron 4 MG/2 ML VIAL IVP PRN ×4 (00:58→20:39)
[2017-06-07] MEDS: Insulin LISPRO 300 UNITS/3 ML VIAL SQ SCH ×5 (01:01→20:40)
[2017-06-07] MEDS ORDERED: Acetaminophen IV 1,000 MG/100 ML INFUS..BTL IVPB ONE ×3 (02:04→17:07)
--- NOTE | 2017-06-07 02:21 | Anesthesia Progress Note ---
Date of Encounter: 06/07/17 Time of Encounter: 02:00 Anesthesia Note - Note Note: 06/07/17 02:19 Patient had increased pain. Bolused 4 cc Ropivacaine mixture and increased rate to 8cc/hr. Epidural site clean and catheter still seemed in place. Will start Ofirmiv IV.
[2017-06-07] MEDS: MetroNIDAZOLE 500 MG/100 ML 500 MG/100 ML BAG IVPB SCH ×4 (03:45→20:39)
[2017-06-07 04:41] LABS: Basophils % 0.2 %; Eosinophils % 0.2 %; Hematocrit 28.9 % (35.3-44.9); Hemoglobin 9.2 g/dL (11.5-15.4); Immature Granulocytes % 0.7 % (0-4); Lymphocytes # 1.4 K/mcL (0.6-4.6); Lymphocytes % 11.1 %; Mean Corpuscular HGB Conc 31.8 g/dL (31.6-35.5); Mean Corpuscular Hemoglobin 29.8 pg (28.0-33.3); Mean Corpuscular Volume 93.5 fL (83.0-100.0); Mean Platelet Volume 9.2 fL (9.4-12.4); Monocytes # 0.3 K/mcL (0.0-1.3); Monocytes % 2.3 %; Platelet Count 211 K/mcL (140-400); Red Blood Count 3.09 M/mcL (3.82-4.97); Red Cell Distribution Width 13.6 % (11.5-14.5); Segmented Neutrophils % 85.5 %
[2017-06-07 04:47] LABS: Neutrophils # 10.8 K/mcL (1.6-8.9)
[2017-06-07 05:08] LABS: BUN/Creatinine Ratio 21 (6-26); Blood Urea Nitrogen 22 mg/dL (8-23); Calcium 7.3 mg/dL (8.6-10.3); Carbon Dioxide 22 mEq/L (23-29); Chloride 106 mEq/L (98-107); Glucose 234 mg/dL (70-105); Magnesium 1.4 mg/dL (1.6-2.6); Osmolality,Calculated 287 (280-300); Phosphorous 2.3 mg/dL (2.7-4.5); Potassium 3.7 mEq/L (3.5-5.1); Sodium 133 mEq/L (136-145); eGFR For African Americans > 60 (> 60); eGFR For Non-African Americans 54 (> 60)
[2017-06-07 05:35] LABS: Platelet Estimate Normal (Normal)
[2017-06-07] MEDS: *HR* Promethazine 25 MG/ML VIAL IVP PRN ×3 (06:12→17:44)
[2017-06-07] MEDS: Levothyroxine Sodium 100 MCG VIAL IVP SCH (06:12)
[2017-06-07] MEDS ORDERED: Magnesium Sulfate 2 GM in D5% in Water 100 ML IVPB ONE (07:51)
[2017-06-07] MEDS: Ropivacaine/PF 0.2% 200 MG/100 ML INFUS..BTL EP SCH (08:00)
[2017-06-07] MEDS: Pantoprazole 40 MG VIAL IVP SCH (09:41)
--- NOTE | 2017-06-07 11:29 | Internal Med Progress Note ---
<MilindLeland alford - Last Filed: 06/07/17 15:23> Date of Encounter: 06/07/17 Time of Encounter: 11:25 - Assessment and plan (1) Perforated diverticulum Current Visit: Yes Status: Acute Assessment and plan: - ABD CT with multiple left sided colon and sigmoid diverticula with wall thickening and extraluminal gas/pneumoperitoneum consistent with acute perforated diverticulitis. - Repeat abdominal CT on 06/02/17 showing 1.17 cm x 3.9 cm x 2.7 cm abscess inferior to the proximal sigmoid colon, increased inflammation of the mesentery , new minimal right hydronephrosis suggestive of uriritis - POD #3 s/p sigmoid colectomy with stapled colocolonic anastomosis - Mild fever of 100.3 overnight, WBC of 12.6 with left shift, worse from previous. Concern for anastomotic leak. - Pain uncontrolled with epidural - Phenergren and Zofran PRN nausea - Not able to tolerate clear liquid diet at this point due to nausea. - Diet advancement per surgery. 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 LLQ and RLQ abscesses forming with increased air from expected POD #3. Contacted surgeon, will consult IR. - Increase pain control, possible anxiety component, will give ativan. - General surgery following (2) Diverticulitis Current Visit: Yes Status: Acute Assessment and plan: as above (3) HTN (hypertension) Current Visit: Yes Status: Acute Assessment and plan: - BP well controlled at this visit. Most recent of 96/63 this morning, improved this afternoon - Holding home BP meds due to NPO status Plan - Continue hydralazine IV PRN hypertension - Monitor given high amount of pain medications Qualifiers: Hypertension type: essential hypertension Qualified Code(s): I10 - Essential (primary) hypertension (4) Hypothyroidism Current Visit: Yes Status: Acute Assessment and plan: Continue IV levothyroxine while nothing by mouth Qualifiers: Hypothyroidism type: acquired Qualified Code(s): E03.9 - Hypothyroidism, unspecified (5) Obesity Current Visit: Yes Status: Chronic Assessment and plan: BMI 46, weight 131kg. lifestyle modifications encouraged as outpatient Qualifiers: Obesity type: due to excess calories Obesity classification: adult class 3 (BMI >= 40) Serious obesity comorbidity presence: without serious comorbidity Body mass index: BMI 45.0-49.9 Qualified Code(s): E66.01 - Morbid (severe) obesity due to excess calories; Z68.42 - Body mass index (BMI) 45.0-49.9, adult ; Z68.42 - Body mass index (BMI) 45.0-49.9, adult; Z68.42 - Body mass index (BMI ) 45.0-49.9, adult; Z68.42 - Body mass index (BMI) 45.0-49.9, adult (6) Hypoxia Current Visit: Yes Status: Acute Assessment and plan: - Oxygen saturation down to 84% on room air on admission. - Morbid obesity likely playing a role however she is on PARK INTERPRETER pump and at risk for hypoventilation syndrome vs pain induced hypoventilation - Currently tolerating 95% on RA following her surgery. Has required intermittent O2 during stay - No reported underlying lung disease. Plan - Supplemental O2 as necessary. Aggressive IS. - Will continue to monitor and attempt to wean. -Also encouraged to seated position as pain allows to prevent atelectasis (7) Cystitis Current Visit: Yes Status: Acute Assessment and plan: - ABD CT with thickening of bladder wall and questionable incomplete distention versus cystitis with mild hydronephrosis - Continue Cipro and Flagyl as above - Urology to place ureteral stent during surgery. Should follow up with urology as outpatient for stent removal. - Following, appreciate recs (8) DVT prophylaxis Current Visit: Yes Status: Acute Assessment and plan: heparin 5000 units q8 hours - Time Spent With Patient 25 - 35 minutes - Subjective Interval history: Patient was seen and examined at bedside this morning. He states that she is having increased pain this morning located in her abdomen diffusely. Also is complaining of nausea this morning and is unable tolerate her clear liquid diet. Overnight, patient was having difficulties with her epidural anesthesia was contacted who fixed issue and increased her pain meds to 8 mg per hour. Phenergan does relieve her nausea. Has had 2 bowel movements this morning which were loose but otherwise normal. - Constitutional Vitals: Temp Pulse Resp BP Pulse Ox 97.4 F L 96 18 96/63 95 06/07/17 06:00 06/07/17 06:00 06/07/17 06:00 06/07/17 06:00 06/07/17 06:00 General appearance: Present: A&O X 3, morbidly obese, pleasant, no acute distress, answers questions appropriately Exam: Gen.: Vitals noted. Mild acute distress. AAOx3. Anxious, diaphoretic HEENT: PERRL/EOMI, oropharynx clear, Normocephalic, atraumatic Cardiac: RRR, no murmur, +S1/S2 Pulmonary: CTA bilaterally, no wheezes, rales or rhonchi, equal chest expansion Abdomen: soft, diffusely tender, BS noted, guarding and rebound positive. MSK: ROM intact, no joint swelling noted Extremities: no BLE edema, nontender calf, no cyanosis or clubbing Neuro: A&Ox3, moves all extremities, no focal deficits Psych: Appropriate mood and behavior Internal Medicine: Result - Labs CBC & Chem 7: 06/07/17 03:54 06/07/17 03:54 Labs: Short CBC 06/07/17 Range/Units 03:54 WBC 12.6 H (4.3-11.1) K/mcL Hgb 9.2 L (11.5-15.4) g/dL Hct 28.9 L (35.3-44.9) % Plt Count 211 (140-400) K/mcL Neutrophils # 10.8 H (1.6-8.9) K/mcL BMP 06/07/17 03:54 Sodium 133 L Potassium 3.7 Chloride 106 Carbon Dioxide 22 L BUN 22 Creatinine 1.03 Glucose 234 H Calcium 7.3 L - ABG Interpretation ABG results: PT/INR, D-dimer PT 13.8 Seconds (9.4-12.1) H 05/30/17 06:42 - VTE Documentation of Mechanical Device: Intermittent pneumatic compression device Consult Discharge Plan - Plan Referrals: Kole Barksdale MD [Primary Care Provider] - 06/08/17 9:45 am <John Browne - Last Filed: 06/07/17 18:48> Date of Encounter: 06/07/17 - Assessment and plan (1) Diverticulitis large intestine Current Visit: Yes Status: Acute Qualifiers: Diverticulitis bleeding: without bleeding Diverticulitis complication: with perforation and abscess Qualified Code(s): K57.20 - Diverticulitis of large intestine with perforation and abscess without bleeding (2) HTN (hypertension) Current Visit: Yes Status: Acute Qualifiers: Hypertension type: essential hypertension Qualified Code(s): I10 - Essential (primary) hypertension (3) Hypothyroidism Current Visit: Yes Status: Acute Qualifiers: Hypothyroidism type: acquired Qualified Code(s): E03.9 - Hypothyroidism, unspecified (4) Morbid obesity with BMI of 45.0-49.9, adult Current Visit: Yes Status: Chronic (5) History of open sigmoidectomy Current Visit: Yes Status: Chronic - Constitutional Vitals: Temp Pulse Resp BP Pulse Ox 100.2 F H 106 20 117/74 95 06/07/17 16:03 06/07/17 15:02 06/07/17 15:02 06/07/17 15:02 06/07/17 15:02 Internal Medicine: Result - Labs CBC & Chem 7: 06/07/17 03:54 06/07/17 03:54 Labs: Short CBC 06/07/17 Range/Units 03:54 WBC 12.6 H (4.3-11.1) K/mcL Hgb 9.2 L (11.5-15.4) g/dL Hct 28.9 L (35.3-44.9) % Plt Count 211 (140-400) K/mcL Neutrophils # 10.8 H (1.6-8.9) K/mcL BMP 06/07/17 03:54 Sodium 133 L Potassium 3.7 Chloride 106 Carbon Dioxide 22 L BUN 22 Creatinine 1.03 Glucose 234 H Calcium 7.3 L - ABG Interpretation ABG results: PT/INR, D-dimer PT 13.8 Seconds (9.4-12.1) H 05/30/17 06:42 - Impressions Impressions Abdomen/Pelvis CT 06/07/17 13:14 IMPRESSION: 1. There is a moderate amount of air within the peritoneum which is new since the prior exam and the patient is 3 days post surgery. A new possible perforation cannot be excluded. 2. Progressive peritoneal edema and inflammation predominantly in the lower quadrants some of which likely corresponds with postsurgical change. The colonic anastomosis appears intact. 3. Bilateral lower quadrant partially loculated fluid collections which may represent forming abscesses. The right lower quadrant has some layering internal material which could represent some possible contrast or postsurgical hemorrhage. 4. No evidence of bowel obstruction. 5. Interval placement of a right ureteral stent with mild improvement of right hydronephrosis. The stent is in appropriate position. 6. No postsurgical incisional/abdominal wall hematoma. Results of the examination were discussed with Dr. Garcia on 06/07/2017 at 3:08 p.m. D/ / 06/07/2017 15:18:51 Regino Holder MD / radha Interpreting Provider: Regino Holder MD - Attending Attestation I examined this patient and my medical decision-making was reviewed with the Resident Physician on 06/07/17. I agree with the documented findings, disposition and treatment plan as described except to the extent set forth below. Ms Mitchell is currently admitted for perforated diverticulum and is s/p resection. She remains moderate to high risk due to potential for worsening clinical status. Ms Mitchell is having a lot of pain. She has had some low grade fever. Continues with nausea as well. Feels dyspneic but due to pain. Exam Alert. Comfortable Mucus membranes dry Heart reg Lungs diminished I/P 1. Perf diverticulum 2. Pain Further diagnoses and plan as above.
[2017-06-07] MEDS ORDERED: 0.9 % Sodium Chloride 1,000 ML IVC SCH (11:30)
[2017-06-07] MEDS: *HR* LORazepam 2 MG/ML VIAL IVP PRN ×3 (12:14→20:44)
--- NOTE | 2017-06-07 13:26 | General Surgery Progress Note ---
Date of Encounter: 06/07/17 Time of Encounter: 13:18 Subjective Narrative: General Surgery - POD #3 Patient considerably greater distress related to diffuse abdominal pain. Patient has had "problems" with a dural analgesia related to inconsistent functioning of the equipment. My arrival at bedside, the patient's tachypnea, with some audible wheezing; he is complaining of greater abdominal pain. The patient is a low-grade temperature with maximum of 100.3; heart rate has increased ranging from 96-108; respiratory rate 18 Blood pressure has diminished slightly to 96/63 with the most recent 117/65. Range in the previous days had been 113/56-21/56 Lungs: Clear to auscultation, no abdominal pain on deep inspiration. Lungs were clear despite the audible wheezes on my arrival at bedside. Abdomen: Diffusely tender; hypoactive bowel sounds. Patient has continued to move her bowels in the last 24 hours. Midline incision clean and dry. Urine output 5450 mL for calendar day 06/05/17; 2200 mL so far today. Laboratories: White count increased slightly to 12.6, hemoglobin 9.2, hematocrit 28.9, neutrophil he has increased to 10.8. Sodium is 133, potassium 3.7, bicarbonate 22, BUN 22, creatinine 1.03; eGFR 54 Operative pathology: Pending Impression: Postoperative day 3, status post sigmoid colectomy with stapled colocolonic anastomosis for acute perforated sigmoid diverticulitis. Patient is now demonstrating increased abdominal pain with low-grade fever and increased leukocytosis accompanied by neutrophilia The abdominal pain may be causing increased anxiety and the respiratory symptoms, however, there is concern for an anastomotic leak The adominal pain may be due to continued malfunction / ineffective epidural analgesia Plan: NPO [place] Anesthesia contacted to remove epidural catheter and discontinue epidural analgesia Stat CT abd/pelvis with IV contrast. Objective Vital Signs - Last 8 Hours Temp Pulse Resp BP Pulse Ox 06/07/17 11:26 99.1 F 100 18 117/65 95 06/07/17 06:00 97.4 F L 96 18 96/63 95 Intake and Output 06/06/17 06/07/17 06/07/17 23:59 07:59 15:59 Intake Total 300 / 300 450 / 450 0 / 0 Output Total 1000 / 1000 350 / 350 325 / 325 Balance -700 / -700 100 / 100 -325 / -325 Intake: IV Fluids 300 / 300 450 / 450 Ofirmev 1,000 mg/100 ml 1,000 100 / 100 mg In 100 ml @ 400 mls/hr IVPB ONCE [facility] Rx#:[id number] Cipro Premix 400 MG/200 ML 400 200 / 200 mg In 200 ml @ 200 mls/hr IVPB Q12H [facility] Rx#:[id number] Intralipid 20% 250 ML @ 21 mls/ 250 / 250 hr IVPB DAILY@1700 [facility] Rx#: [id number] Flagyl Premix 500 MG/100 ML 500 100 / 100 100 / 100 mg In 100 ml @ 100 mls/hr IVPB Q6H [facility] Rx#:[id number] Oral 0 / 0 0 / 0 0 / 0 Output: Urine 800 / 800 Catheter 200 / 200 350 / 350 325 / 325 Other: Meal Breakfast Percent of Meal Consumed 0% Stool Size Copious Stool Consistency loose Stool Characteristics Mucoid Stool Color Brown # Bowel Movements 1 Weight 123.6 kg Blood Glucose* 243 234 256 Patient Weight 06/07/17 23:59 Weight 123.6 kg - Labs 06/07/17 03:54 06/07/17 03:54 Diabetes panel 06/07/17 Range/Units 03:54 Sodium 133 L (136-145) mEq/L Potassium 3.7 (3.5-5.1) mEq/L Chloride 106 (98-107) mEq/L Carbon Dioxide 22 L (23-29) mEq/L BUN 22 (8-23) mg/dL Creatinine 1.03 (0.60-1.20) mg/dL Glucose 234 H (70-105) mg/dL Calcium 7.3 L (8.6-10.3) mg/dL Calcium panel 06/07/17 Range/Units 03:54 Calcium 7.3 L (8.6-10.3) mg/dL Phosphorus 2.3 L (2.7-4.5) mg/dL Pituitary panel 06/07/17 Range/Units 03:54 Sodium 133 L (136-145) mEq/L Potassium 3.7 (3.5-5.1) mEq/L Chloride 106 (98-107) mEq/L Carbon Dioxide 22 L (23-29) mEq/L BUN 22 (8-23) mg/dL Creatinine 1.03 (0.60-1.20) mg/dL Glucose 234 H (70-105) mg/dL Calcium 7.3 L (8.6-10.3) mg/dL Adrenal panel 06/07/17 Range/Units 03:54 Sodium 133 L (136-145) mEq/L Potassium 3.7 (3.5-5.1) mEq/L Chloride 106 (98-107) mEq/L Carbon Dioxide 22 L (23-29) mEq/L BUN 22 (8-23) mg/dL Creatinine 1.03 (0.60-1.20) mg/dL Glucose 234 H (70-105) mg/dL Calcium 7.3 L (8.6-10.3) mg/dL - VTE Documentation of Mechanical Device: Intermittent pneumatic compression device Consult Discharge Plan - Plan Referrals: Kole Barksdale MD [Primary Care Provider] - 06/08/17 9:45 am
--- NOTE | 2017-06-07 13:50 | Anesthesia Procedures ---
Date of Encounter: 06/07/17 Time of Encounter: 13:48 Procedures: Anesthesia - Epidural Rounding Post Op Day #: 3 Procedure: Tapia's Pain Control: Inadequate Vital Signs: Vital Signs/O2 Sat, Most Current Temp Pulse Resp BP Pulse Ox 99.1 F 100 18 117/65 95 06/07/17 11:26 06/07/17 11:26 06/07/17 11:26 06/07/17 11:26 06/07/17 11:26 Mental Status: awake Catheter Site Dressing Intact: Yes Erythema: No Pruritus: not present Signs of Infection At Catheter Site: No Plan: Remove Epidural Catheter Epidural Catheter removed; Tip Intact: Yes (Removed without difficulty, tip intact)
[2017-06-07] MEDS ORDERED: *HR* HYDROmorphone 20 MG/20 ML PCA IVC PRN ×3 (15:17→17:21)
[2017-06-07] MEDS ORDERED: Clinimix E 5%-15% SOLUTION 2,000 ML, Parenteral Amino Acid 10% 200 ML with MVI, adult ... IVC SCH (17:00)
--- NOTE | 2017-06-07 17:27 | General Surgery Progress Note ---
Date of Encounter: 06/07/17 Time of Encounter: 17:22 Subjective Patient reports: still having pain Narrative: General Surgery - continued Surgical follow up POD #3 CT abd/pelvis reviewed with Interventional Radiology. The pelvic fluid appears to be post op fluid (related to the irrigation of the abd and pelvis completed at the time of surgery 06/04/2017 rather than an abscess). The colo colonic anastomosis appears intact. The intra peritoneal air noted but patient was an open explor celiotomy 06/04/2017. The patient is still very anxious due to abd pain which has yet to be controlled. The ordered MAINTENANCE DATA ANALYST has yet to be initiated. The patient and her re assured as to the CT findings. CBC and basic metabolic profile to be repeated in the AM. Patient requires aggressive pulmonary toilet. Will add albuterol aerosol therapy. Continue to monitor closely Objective Vital Signs - Last 8 Hours Temp Pulse Resp BP Pulse Ox 06/07/17 16:03 100.2 F H 06/07/17 15:02 99.5 F 106 20 117/74 95 06/07/17 11:26 99.1 F 100 18 117/65 95 Intake and Output 06/07/17 06/07/17 06/07/17 07:59 15:59 23:59 Intake Total 450 / 450 240 / 240 Output Total 350 / 350 325 / 325 Balance 100 / 100 -85 / -85 Intake: IV Fluids 450 / 450 Ofirmev 1,000 mg/100 ml 1,000 100 / 100 mg In 100 ml @ 400 mls/hr IVPB ONCE [facility] Rx#:[id number] Intralipid 20% 250 ML @ 21 mls/ 250 / 250 hr IVPB DAILY@1700 [facility] Rx#: [id number] Flagyl Premix 500 MG/100 ML 500 100 / 100 mg In 100 ml @ 100 mls/hr IVPB Q6H [facility] Rx#:[id number] Oral 0 / 0 240 / 240 Output: Catheter 350 / 350 325 / 325 Other: Meal Lunch Percent of Meal Consumed 100% Stool Size Copious Stool Consistency loose Stool Characteristics Mucoid Stool Color Brown # Bowel Movements 1 Weight 123.6 kg Blood Glucose* 234 256 252 Patient Weight 06/07/17 23:59 Weight 123.6 kg - Labs 06/07/17 03:54 06/07/17 03:54 Diabetes panel 06/07/17 Range/Units 03:54 Sodium 133 L (136-145) mEq/L Potassium 3.7 (3.5-5.1) mEq/L Chloride 106 (98-107) mEq/L Carbon Dioxide 22 L (23-29) mEq/L BUN 22 (8-23) mg/dL Creatinine 1.03 (0.60-1.20) mg/dL Glucose 234 H (70-105) mg/dL Calcium 7.3 L (8.6-10.3) mg/dL Calcium panel 06/07/17 Range/Units 03:54 Calcium 7.3 L (8.6-10.3) mg/dL Phosphorus 2.3 L (2.7-4.5) mg/dL Pituitary panel 06/07/17 Range/Units 03:54 Sodium 133 L (136-145) mEq/L Potassium 3.7 (3.5-5.1) mEq/L Chloride 106 (98-107) mEq/L Carbon Dioxide 22 L (23-29) mEq/L BUN 22 (8-23) mg/dL Creatinine 1.03 (0.60-1.20) mg/dL Glucose 234 H (70-105) mg/dL Calcium 7.3 L (8.6-10.3) mg/dL Adrenal panel 06/07/17 Range/Units 03:54 Sodium 133 L (136-145) mEq/L Potassium 3.7 (3.5-5.1) mEq/L Chloride 106 (98-107) mEq/L Carbon Dioxide 22 L (23-29) mEq/L BUN 22 (8-23) mg/dL Creatinine 1.03 (0.60-1.20) mg/dL Glucose 234 H (70-105) mg/dL Calcium 7.3 L (8.6-10.3) mg/dL - VTE Documentation of Mechanical Device: Intermittent pneumatic compression device Consult Discharge Plan - Plan Referrals: Kole Barksdale MD [Primary Care Provider] - 06/08/17 9:45 am
[2017-06-07] MEDS ORDERED: Acetaminophen IV 1,000 MG/100 ML INFUS..BTL IVPB PRN (18:21)
[2017-06-07] MEDS: Albuterol 2.5 MG/3 ML NEBULIZER IH SCH ×2 (19:33→20:32)
[2017-06-08] MEDS: Albuterol 2.5 MG/3 ML NEBULIZER IH SCH ×7 (00:08→23:08)
[2017-06-08] MEDS: *HR* LORazepam 2 MG/ML VIAL IVP PRN ×4 (01:43→22:28)
[2017-06-08] MEDS: *HR* Promethazine 25 MG/ML VIAL IVP PRN ×4 (01:44→22:28)
[2017-06-08] MEDS: Insulin LISPRO 300 UNITS/3 ML VIAL SQ SCH ×6 (01:44→23:35)
[2017-06-08] MEDS: MetroNIDAZOLE 500 MG/100 ML 500 MG/100 ML BAG IVPB SCH ×4 (03:38→22:33)
[2017-06-08 04:23] LABS: Hematocrit 29.7 % (35.3-44.9); Hemoglobin 9.5 g/dL (11.5-15.4); Mean Corpuscular Hemoglobin 30.3 pg (28.0-33.3); Mean Corpuscular Volume 94.6 fL (83.0-100.0); Mean Platelet Volume 9.1 fL (9.4-12.4); Platelet Count 225 K/mcL (140-400); Red Blood Count 3.14 M/mcL (3.82-4.97); Red Cell Distribution Width 13.8 % (11.5-14.5)
[2017-06-08 04:28] LABS: ABG Base Excess -1 mEq/L (-2 to 3); ABG HCO3 23 mEq/L (21-27); ABG Oxygen Saturation 95 % (95-98); ABG PCO2 35 mmHg (35-45); ABG PH 7.43 pH Units (7.32-7.45); ABG PO2 72 mmHg (85-104); ABG TCO2 24 mEq/L (20-26)
[2017-06-08 04:39] LABS: BUN/Creatinine Ratio 21 (6-26); Blood Urea Nitrogen 23 mg/dL (8-23); Calcium 6.8 mg/dL (8.6-10.3); Carbon Dioxide 21 mEq/L (23-29); Chloride 108 mEq/L (98-107); Glucose 229 mg/dL (70-105); Magnesium 1.7 mg/dL (1.6-2.6); Osmolality,Calculated 289 (280-300); Phosphorous 3.8 mg/dL (2.7-4.5); Potassium 3.9 mEq/L (3.5-5.1); Sodium 134 mEq/L (136-145); eGFR For African Americans > 60 (> 60); eGFR For Non-African Americans 52 (> 60)
[2017-06-08 04:46] LABS: VBG Ionized Calcium 0.98 mmol/L (1.15-1.35); VBG PH 7.36 pH Units (7.32-7.42)
[2017-06-08] MEDS: Levothyroxine Sodium 100 MCG VIAL IVP SCH (04:52)
[2017-06-08 04:54] LABS: Bilirubin,Urine Negative (Negative); Blood,Urine Large (Negative); Clarity,Urine Clear (Clear); Color,Urine Dark Yellow (Yellow); Glucose,Urine (UA) 100 mg/dL (Normal); Ketones,Urine Negative (Negative); Leukocyte Esterase,Urine Small (Negative); Nitrite,Urine Negative (Negative); Protein,Urine 100 mg/dL (Neg-Trace); Specific Gravity,Urine > 1.030 (1.010-1.025); Urobilinogen,Urine Normal (Normal)
[2017-06-08 05:18] LABS: Monocytes # 0.3 K/mcL (0.0-1.3); Neutrophils # 11.8 K/mcL (1.6-8.9); Platelet Estimate Normal (Normal)
[2017-06-08] MEDS ORDERED: 0.9 % Sodium Chloride 1,000 ML IVC ONE (06:11)
[2017-06-08] MEDS: Pantoprazole 40 MG VIAL IVP SCH (08:11)
--- NOTE | 2017-06-08 08:26 | Internal Med Progress Note ---
<Leland Larson - Last Filed: 06/08/17 08:24> Date of Encounter: 06/08/17 Time of Encounter: 08:24 - Assessment and plan (1) Perforated diverticulum Current Visit: Yes Status: Acute (2) Diverticulitis Current Visit: Yes Status: Acute (3) HTN (hypertension) Current Visit: Yes Status: Acute Qualifiers: Hypertension type: essential hypertension Qualified Code(s): I10 - Essential (primary) hypertension (4) Hypothyroidism Current Visit: Yes Status: Acute Qualifiers: Hypothyroidism type: acquired Qualified Code(s): E03.9 - Hypothyroidism, unspecified (5) Obesity Current Visit: Yes Status: Chronic Qualifiers: Obesity type: due to excess calories Obesity classification: adult class 3 (BMI >= 40) Serious obesity comorbidity presence: without serious comorbidity Body mass index: BMI 45.0-49.9 Qualified Code(s): E66.01 - Morbid (severe) obesity due to excess calories; Z68.42 - Body mass index (BMI) 45.0-49.9, adult ; Z68.42 - Body mass index (BMI) 45.0-49.9, adult; Z68.42 - Body mass index (BMI ) 45.0-49.9, adult; Z68.42 - Body mass index (BMI) 45.0-49.9, adult (6) Hypoxia Current Visit: Yes Status: Acute (7) Cystitis Current Visit: Yes Status: Acute (8) DVT prophylaxis Current Visit: Yes Status: Acute - Subjective Interval history: Patient was seen and examined at bedside this morning. She is continuing to have some pain this morning but states it is better than yesterday. Reports nausea relived with phenegren. Some low grade fevers overnight. - Constitutional Vitals: Temp Pulse Resp BP Pulse Ox 98.2 F 99 18 133/80 95 06/08/17 08:00 06/08/17 08:00 06/08/17 08:00 06/08/17 08:00 06/08/17 08:00 General appearance: Present: A&O X 3, morbidly obese, pleasant, no acute distress, answers questions appropriately Exam: Gen.: Vitals noted. No acute distress. AAOx3 HEENT: PERRL/EOMI, oropharynx clear, Normocephalic, atraumatic, MMM Cardiac: RRR, no murmur, +S1/S2 Pulmonary: CTA bilaterally, no wheezes, rales or rhonchi, equal chest expansion Abdomen: soft, tender to palpation diffusely, BS noted, involuntary guarding and rebound present. MSK: ROM intact, no joint swelling noted Extremities: no BLE edema, nontender calf, no cyanosis or clubbing Neuro: A&Ox3, moves all extremities, no focal deficits Psych: Appropriate mood and behavior Internal Medicine: Result - Labs CBC & Chem 7: 06/08/17 04:10 06/08/17 04:10 Labs: Short CBC 06/08/17 Range/Units 04:10 WBC 15.1 H (4.3-11.1) K/mcL Hgb 9.5 L (11.5-15.4) g/dL Hct 29.7 L (35.3-44.9) % Plt Count 225 (140-400) K/mcL Neutrophils # 11.8 H (1.6-8.9) K/mcL BMP 06/08/17 04:10 Sodium 134 L Potassium 3.9 Chloride 108 H Carbon Dioxide 21 L BUN 23 Creatinine 1.07 Glucose 229 H Calcium 6.8 L Urine 06/08/17 Range/Units 04:20 Urine Color Dark Yellow (Yellow) Urine Clarity Clear (Clear) Urine pH 6.0 (5.0-8.0) pH Units Ur Specific Trinity > 1.030 H (1.010-1.025) Urine Protein 100 H (Neg-Trace) mg/dL Urine Glucose (UA) 100 H (Normal) mg/dL - ABG Interpretation ABG results: ABG ABG pH 7.43 pH Units (7.32-7.45) 06/08/17 04:24 ABG pCO2 35 mmHg (35-45) 06/08/17 04:24 ABG pO2 72 mmHg (85-104) L 06/08/17 04:24 ABG O2 Saturation 95 % (95-98) 06/08/17 04:24 PT/INR, D-dimer PT 13.8 Seconds (9.4-12.1) H 05/30/17 06:42 - Impressions Impressions Abdomen/Pelvis CT 06/07/17 13:14 IMPRESSION: 1. There is a moderate amount of air within the peritoneum which is new since the prior exam and the patient is 3 days post surgery. A new possible perforation cannot be excluded. 2. Progressive peritoneal edema and inflammation predominantly in the lower quadrants some of which likely corresponds with postsurgical change. The colonic anastomosis appears intact. 3. Bilateral lower quadrant partially loculated fluid collections which may represent forming abscesses. The right lower quadrant has some layering internal material which could represent some possible contrast or postsurgical hemorrhage. 4. No evidence of bowel obstruction. 5. Interval placement of a right ureteral stent with mild improvement of right hydronephrosis. The stent is in appropriate position. 6. No postsurgical incisional/abdominal wall hematoma. Results of the examination were discussed with Dr. Garcia on 06/07/2017 at 3:08 p.m. D/ / 06/07/2017 15:18:51 Regino Holder MD / radha Interpreting Provider: Regino Holder MD Chest X-Ray 06/08/17 04:03 IMPRESSION: No acute findings. D/ / Catracho Knowles MD / Catracho Knowles MD Interpreting Provider: Catracho Knowles MD - VTE Documentation of Mechanical Device: Intermittent pneumatic compression device Consult Discharge Plan - Plan Referrals: Kole Barksdale MD [Primary Care Provider] - 06/08/17 9:45 am <John Browne - Last Filed: 06/08/17 15:02> Date of Encounter: 06/08/17 - Assessment and plan (1) Diverticulitis large intestine Current Visit: Yes Status: Acute Qualifiers: Diverticulitis bleeding: without bleeding Diverticulitis complication: with perforation and abscess Qualified Code(s): K57.20 - Diverticulitis of large intestine with perforation and abscess without bleeding (2) HTN (hypertension) Current Visit: Yes Status: Acute Qualifiers: Hypertension type: essential hypertension Qualified Code(s): I10 - Essential (primary) hypertension (3) Hypothyroidism Current Visit: Yes Status: Acute Qualifiers: Hypothyroidism type: acquired Qualified Code(s): E03.9 - Hypothyroidism, unspecified (4) Morbid obesity with BMI of 45.0-49.9, adult Current Visit: Yes Status: Chronic (5) History of open sigmoidectomy Current Visit: Yes Status: Chronic - Constitutional Vitals: Temp Pulse Resp BP Pulse Ox 97.6 F 108 20 122/78 95 06/08/17 13:00 06/08/17 13:00 06/08/17 13:00 06/08/17 13:00 06/08/17 13:00 Internal Medicine: Result - Labs CBC & Chem 7: 06/08/17 04:10 06/08/17 04:10 Labs: Short CBC 06/08/17 Range/Units 04:10 WBC 15.1 H (4.3-11.1) K/mcL Hgb 9.5 L (11.5-15.4) g/dL Hct 29.7 L (35.3-44.9) % Plt Count 225 (140-400) K/mcL Neutrophils # 11.8 H (1.6-8.9) K/mcL BMP 06/08/17 04:10 Sodium 134 L Potassium 3.9 Chloride 108 H Carbon Dioxide 21 L BUN 23 Creatinine 1.07 Glucose 229 H Calcium 6.8 L Urine 06/08/17 Range/Units 04:20 Urine Color Dark Yellow (Yellow) Urine Clarity Clear (Clear) Urine pH 6.0 (5.0-8.0) pH Units Ur Specific Trinity > 1.030 H (1.010-1.025) Urine Protein 100 H (Neg-Trace) mg/dL Urine Glucose (UA) 100 H (Normal) mg/dL - ABG Interpretation ABG results: ABG ABG pH 7.43 pH Units (7.32-7.45) 06/08/17 04:24 ABG pCO2 35 mmHg (35-45) 06/08/17 04:24 ABG pO2 72 mmHg (85-104) L 06/08/17 04:24 ABG O2 Saturation 95 % (95-98) 06/08/17 04:24 PT/INR, D-dimer PT 13.8 Seconds (9.4-12.1) H 05/30/17 06:42 - Impressions Impressions Abdomen/Pelvis CT 06/07/17 13:14 IMPRESSION: 1. There is a moderate amount of air within the peritoneum which is new since the prior exam and the patient is 3 days post surgery. A new possible perforation cannot be excluded. 2. Progressive peritoneal edema and inflammation predominantly in the lower quadrants some of which likely corresponds with postsurgical change. The colonic anastomosis appears intact. 3. Bilateral lower quadrant partially loculated fluid collections which may represent forming abscesses. The right lower quadrant has some layering internal material which could represent some possible contrast or postsurgical hemorrhage. 4. No evidence of bowel obstruction. 5. Interval placement of a right ureteral stent with mild improvement of right hydronephrosis. The stent is in appropriate position. 6. No postsurgical incisional/abdominal wall hematoma. Results of the examination were discussed with Dr. Garcia on 06/07/2017 at 3:08 p.m. D/ / 06/07/2017 15:18:51 Regino Holder MD / radha Interpreting Provider: Regino Holder MD Chest X-Ray 06/08/17 04:03 IMPRESSION: No acute findings. D/ / Catracho Knowles MD / Catracho Knowles MD Interpreting Provider: Catracho Knowles MD - Attending Attestation I examined this patient and my medical decision-making was reviewed with the Resident Physician on 06/08/17. I agree with the documented findings, disposition and treatment plan as described except to the extent set forth below. Ms Mitchell is currently admitted with perforated diverticulum s/p resection. She remains high risk due to potential for worsening clinical status. Ms Mitchell is still having a lot of pain in her abdomen. Had fever overnight and blood cultures done. Feeling dyspneic at rest. No bowel movement today. Still nauseous as well. Exam Alert. Uncomfortable Mucus membranes dry Heart reg and not tachy Lungs diminished Abd distended. Bowel sounds heard. Soft and very tender. I/P 1. Perforated diverticulum with abscess 2. Pain Pt continues to feel poorly and has not improved over last 24 hours. Will transfer to ICU for further monitoring. Further diagnoses and plan as above.
[2017-06-08] MEDS ORDERED: Calcium Chloride 1,000 MG in 0.9 % Sodium Chloride 100 ML IVPB ONE (09:16)
[2017-06-08] MEDS ORDERED: Vancomycin 2,000 MG in D5% in Water 500 ML IVPB ONE (10:00)
[2017-06-08] MEDS ORDERED: Cefepime HCl 2,000 MG in Water for inj. (sterile) 20 ML 20 ML IVP SCH (11:00)
[2017-06-08] MEDS: Ondansetron 4 MG/2 ML VIAL IVP PRN ×2 (11:50→19:38)
[2017-06-08] MEDS ORDERED: Naloxone 0.4 MG/ML INJ IVP PRN (12:58)
[2017-06-08] MEDS ORDERED: Clinimix E 5%-15% SOLUTION 2,000 ML, Parenteral Amino Acid 10% 200 ML with MVI, adult ... IVC SCH ×2 (12:58→17:00)
[2017-06-08] MEDS ORDERED: D10% in Water 500 ML IVC PRN (12:58)
[2017-06-08] MEDS ORDERED: Acetaminophen IV 1,000 MG/100 ML INFUS..BTL IVPB PRN (12:58)
[2017-06-08] MEDS ORDERED: *HR* LORazepam 2 MG/ML VIAL IVP PRN (12:58)
[2017-06-08] MEDS ORDERED: Dextrose Gel 15 GM/37.5 ML TUBE PO PRN (12:58)
[2017-06-08] MEDS ORDERED: *HR* Dextrose 50 % in Water (Syg) 50 ML SYRINGE IVP PRN (12:58)
[2017-06-08] MEDS ORDERED: D5% in Water 1,000 ML IVC PRN (12:58)
--- NOTE | 2017-06-08 14:11 | General Surgery Progress Note ---
Date of Encounter: 06/08/17 Time of Encounter: 13:30 Subjective Narrative: General Surgery - POD #4 Patient transferred to ICU after demonstrating increasing abdominal pain, increasing fever, tachycardia. Maximum temperature recorded through the night, 100.8. Currently afebrile at 97.6, tachycardia with maximal heart rate 113, currently 108 (104-108) Respiratory rate 18-20, patient admits to pain on deep inspiration. Blood pressure 122/78 - 128/97 Lungs: Clear to auscultation with satisfactory inspiratory effort despite complaints of pain on deep inspiration Cardiac: Tachycardia without obvious murmurs Abdomen: Soft, bilateral lower abdominal tenderness but no discernible rebound. Hypoactive bowel sounds. Midline incision remains clean and dry. Bowel movement last recorded 06/07. Urine output: 1325 mL for counter day 06/07/17; 1050 mL so far today Laboratories: White count has increased to 15.1, hemoglobin 9.5, hematocrit 29.7 (stable anemia); platelet count 225,000; neutrophilia 11.8 Sodium 134, potassium 3.9, chloride 108, BUN 23, creatinine 1.07. eGFR 52 Accu-Cheks - maximum 305 but still running [phone] despite moderate sliding scale coverage Have discussed with dietary; 20 units of insulin will be added to the TPN He will also increase sliding scale coverage to high Hypophosphatemia, hypomagnesemia have been corrected and are currently within normal limits. Impression/Plan: Postoperative day #4, status post sigmoid colectomy with stapled colocolonic anastomosis for acute perforated sigmoid diverticulitis Pathology still pending. Patient transferred to ICU for more intensive care and monitoring after demonstrating increasing abdominal pain, leukocytosis and fever. Antibiotics changed, ciprofloxacin has been discontinued cefepime and vancomycin initiated. Metronidazole to continue. Continue harry for accurate I&O in this critically ill patient Continue TPN for nutrition Maintain NPO except ice chips for now. PL[employer]FORM ST[employer]ER pain control is providing better pain control. Monitor closely Objective Vital Signs - Last 8 Hours Temp Pulse Resp BP Pulse Ox 06/08/17 13:00 97.6 F 108 20 122/78 95 06/08/17 12:00 98.8 F 104 18 128/97 97 06/08/17 11:37 18 95 06/08/17 08:00 98.2 F 99 18 133/80 95 06/08/17 07:51 33 95 Intake and Output 06/07/17 06/08/17 06/08/17 23:59 07:59 15:59 Intake Total 300 / 300 100 / 100 Output Total 650 / 650 400 / 400 650 / 650 Balance -350 / -350 -300 / -300 -650 / -650 Intake: IV Fluids 300 / 300 100 / 100 Cipro Premix 400 MG/200 ML 400 200 / 200 mg In 200 ml @ 200 mls/hr IVPB Q12H [facility] Rx#:[id number] Flagyl Premix 500 MG/100 ML 500 100 / 100 100 / 100 mg In 100 ml @ 100 mls/hr IVPB Q6H [facility] Rx#:[id number] Output: Catheter 650 / 650 400 / 400 650 / 650 Other: Weight 134.1 kg Blood Glucose* 305 235 243 Patient Weight 06/08/17 23:59 Weight 134.1 kg - Labs 06/08/17 04:10 06/08/17 04:10 Diabetes panel 06/08/17 Range/Units 04:10 Sodium 134 L (136-145) mEq/L Potassium 3.9 (3.5-5.1) mEq/L Chloride 108 H (98-107) mEq/L Carbon Dioxide 21 L (23-29) mEq/L BUN 23 (8-23) mg/dL Creatinine 1.07 (0.60-1.20) mg/dL Glucose 229 H (70-105) mg/dL Calcium 6.8 L (8.6-10.3) mg/dL Calcium panel 06/08/17 Range/Units 04:10 Calcium 6.8 L (8.6-10.3) mg/dL Phosphorus 3.8 (2.7-4.5) mg/dL Pituitary panel 06/08/17 Range/Units 04:10 Sodium 134 L (136-145) mEq/L Potassium 3.9 (3.5-5.1) mEq/L Chloride 108 H (98-107) mEq/L Carbon Dioxide 21 L (23-29) mEq/L BUN 23 (8-23) mg/dL Creatinine 1.07 (0.60-1.20) mg/dL Glucose 229 H (70-105) mg/dL Calcium 6.8 L (8.6-10.3) mg/dL Adrenal panel 06/08/17 Range/Units 04:10 Sodium 134 L (136-145) mEq/L Potassium 3.9 (3.5-5.1) mEq/L Chloride 108 H (98-107) mEq/L Carbon Dioxide 21 L (23-29) mEq/L BUN 23 (8-23) mg/dL Creatinine 1.07 (0.60-1.20) mg/dL Glucose 229 H (70-105) mg/dL Calcium 6.8 L (8.6-10.3) mg/dL - VTE Documentation of Mechanical Device: Intermittent pneumatic compression device Consult Discharge Plan - Plan Referrals: Kole Barksdale MD [Primary Care Provider] - 06/08/17 9:45 am
[2017-06-08 15:18] LABS: VBG Ionized Calcium 1.24 mmol/L (1.15-1.35)
[2017-06-08 15:22] LABS: Calcium 8.4 mg/dL (8.6-10.3); Carbon Dioxide 24 mEq/L (23-29); Chloride 105 mEq/L (98-107); Potassium 4.4 mEq/L (3.5-5.1); Sodium 131 mEq/L (136-145)
[2017-06-08 15:24] LABS: Magnesium 1.9 mg/dL (1.6-2.6)
[2017-06-08 15:28] LABS: BUN/Creatinine Ratio 24 (6-26); Blood Urea Nitrogen 25 mg/dL (8-23); Glucose 276 mg/dL (70-105); Osmolality,Calculated 286 (280-300); eGFR For African Americans > 60 (> 60); eGFR For Non-African Americans 52 (> 60)
[2017-06-08] MEDS ORDERED: Insulin LISPRO 300 UNITS/3 ML VIAL SQ SCH (16:00)
[2017-06-08] MEDS ORDERED: Cefepime HCl 1,000 MG in Water for inj. (sterile) 20 ML 10 ML IVP SCH (16:00)
[2017-06-08] MEDS: Clinimix E 5%-15% SOLUTION 2,000 ML, Parenteral Amino Acid 10% 200 ML with MVI, adult ... IVC SCH (18:00)
[2017-06-08] MEDS: Cefepime HCl 2,000 MG in Water for inj. (sterile) 20 ML 20 ML IVP SCH (19:39)
[2017-06-08] MEDS: 0.9 % Sodium Chloride 1,000 ML IVC SCH (19:42)
[2017-06-08] MEDS: *HR* HYDROmorphone 20 MG/20 ML PCA IVC PRN (22:10)
[2017-06-08] MEDS: Vancomycin 1,500 MG in D5% in Water 250 ML IVPB SCH (23:29)
[2017-06-09] MEDS ORDERED: Vancomycin 1,500 MG in D5% in Water 250 ML IVPB SCH
[2017-06-09] MEDS: 0.9 % Sodium Chloride 1,000 ML IVC SCH (03:23)
[2017-06-09] MEDS: Cefepime HCl 2,000 MG in Water for inj. (sterile) 20 ML 20 ML IVP SCH ×3 (03:26→18:39)
[2017-06-09] MEDS: MetroNIDAZOLE 500 MG/100 ML 500 MG/100 ML BAG IVPB SCH ×4 (03:26→20:03)
[2017-06-09] MEDS: Insulin LISPRO 300 UNITS/3 ML VIAL SQ SCH ×5 (03:32→20:03)
[2017-06-09] MEDS: Albuterol 2.5 MG/3 ML NEBULIZER IH SCH ×5 (03:53→19:31)
[2017-06-09] MEDS: *HR* Promethazine 25 MG/ML VIAL IVP PRN ×4 (04:32→18:40)
[2017-06-09 04:56] LABS: VBG Ionized Calcium 1.17 mmol/L (1.15-1.35); VBG PH 7.32 pH Units (7.32-7.42)
[2017-06-09 05:00] LABS: Red Blood Count 2.97 M/mcL (3.82-4.97)
[2017-06-09 05:01] LABS: Basophils # 0.1 K/mcL (0.0-0.2); Basophils % 0.4 %; Eosinophils # 0.4 K/mcL (0.0-0.6); Eosinophils % 2.3 %; Hematocrit 28.5 % (35.3-44.9); Immature Granulocytes % 1.9 % (0-4); Lymphocytes # 1.8 K/mcL (0.6-4.6); Lymphocytes % 12.2 %; Mean Corpuscular HGB Conc 31.6 g/dL (31.6-35.5); Mean Corpuscular Hemoglobin 30.3 pg (28.0-33.3); Mean Platelet Volume 9.6 fL (9.4-12.4); Monocytes # 0.8 K/mcL (0.0-1.3); Monocytes % 5.4 %; Neutrophils # 11.6 K/mcL (1.6-8.9); Platelet Count 248 K/mcL (140-400); Segmented Neutrophils % 77.8 %
[2017-06-09 05:12] LABS: Magnesium 2.1 mg/dL (1.6-2.6); Phosphorous 3.1 mg/dL (2.7-4.5)
[2017-06-09 05:49] LABS: Albumin 2.5 g/dL (3.5-5.7); Albumin/Globulin Ratio 0.7 (1.1-2.2); Bilirubin,Total 0.4 mg/dL (0.3-1.0); Calcium 8.1 mg/dL (8.6-10.3); Globulin 3.5 g/dL (2.4-3.5); Potassium 4.5 mEq/L (3.5-5.1)
[2017-06-09] MEDS: Levothyroxine Sodium 100 MCG VIAL IVP SCH (05:59)
[2017-06-09] MEDS: Ondansetron 4 MG/2 ML VIAL IVP PRN ×4 (05:59→20:03)
[2017-06-09] MEDS: Pantoprazole 40 MG VIAL IVP SCH (08:36)
[2017-06-09] MEDS: D5% in 0.45% NACL 1,000 ML IVC SCH ×2 (08:36→21:19)
--- NOTE | 2017-06-09 08:37 | General Surgery Progress Note ---
Date of Encounter: 06/09/17 Time of Encounter: 08:10 Subjective Patient reports: feels better, pain is less Narrative: General Surgery - POD #5 Patient feeling slightly improved; pain is better controlled on KEY WORKER. Patient is complaining of nausea; no emesis. Maximum temperature through the night of 101.6; currently afebrile at 98.7. Respiratory rate 20-26; blood pressure 113/65 to 124/81 SPO2 on 3-4 L/min nasal cannula 98-100% Lungs: Clear to auscultation; patient denies pain on inspiration Cardiac: Rate 95-102; no audible murmurs Abdomen: Less tender, hypoactive bowel sounds. No flatus or BM in the last 24 hours Midline incision clean and dry Urine output: 1750 mL for calendar day 06/08/17; 450 mL so far today. Laboratories: White count 14.9, neutrophilia 11.6 - slightly improved; hemoglobin 9.0, hematocrit 28.5, platelet count 248,000. Electrolytes notable for sodium of 132, potassium 4.5, BUN 27, creatinine 1.24, eGFR 44; phosphorus 3.1, magnesium 2.1. Protein 6.0, albumin 2.5 Intraoperative pathology still pending Impression: Postoperative day #5, status post exploratory celiotomy, sigmoid colectomy with stapled colocolonic anastomosis for acute perforated diverticulitis Slight improvement in the last 24 hours Hyponatremia without obvious symptoms Anemia - combination of anemia due to acute illness as well as acute surgical blood loss - essentially stable Diminishing renal function - rising BUN, creatinine and falling eGFR - possibly due to TPN and hyperglycemia and solute load Elevated Accu-Cheks/hyperglycemia - due to acute intra peritoneal inflammation and TPN - better control with high sliding scale coverage Plan: Patient may be out of bed to chair Continue cefepime, vancomycin, and metronidazole Continue intense monitoring; increase free water and monitor renal function. Continue NPO except ice chips until bowel activity improves and nausea resolves. Treat nausea symptomatically Maintain Don due to history of cystitis, Radiologic findings of thickened urinary bladder wall related to the adjacent pericolic inflammation Continue requirement for strict I's and O's in this critically ill patient continue TPN Objective Vital Signs - Last 8 Hours Temp Pulse Resp BP Pulse Ox 06/09/17 07:38 20 100 06/09/17 07:15 98.7 F 06/09/17 06:00 99.7 F H 101 25 124/81 98 06/09/17 05:00 99 24 117/71 98 06/09/17 04:00 99.0 F 102 26 113/65 96 06/09/17 03:53 18 96 06/09/17 03:17 99 06/09/17 03:00 95 27 111/75 96 06/09/17 02:00 96 24 121/78 96 06/09/17 01:00 99.5 F 101 24 117/70 96 Intake and Output 06/08/17 06/09/17 06/09/17 23:59 07:59 15:59 Intake Total 2480 / 2480 1720 / 1720 Output Total 700 / 700 450 / 450 Balance 1780 / 1780 1270 / 1270 Intake: IV Fluids 2480 / 2480 1720 / 1720 0.9 % Sodium Chloride 1,000 ML 1000 / 1000 @ 80 mls/hr IVC .[id number] [facility] Rx #:[id number] Clinimix E 5%-15% SOLUTION 2, 2210 / 2210 000 ML Travasol 10% 200 ML @ 91 .6 mls/hr IVC .Q24H [facility] with M. v.i. Adult 10 ml Rx#:[id number] Maxipime 2,000 MG In Water for 20 / 20 20 / 20 inj. (sterile) 20 ML @ 300 mls/ hr IVP Q8H [facility] Rx#:[id number] Ofirmev 1,000 mg/100 ml 1,000 100 / 100 mg In 100 ml @ 400 mls/hr IVPB Q8H PRN Rx#:[id number] Intralipid 20% 250 ML @ 21 mls/ 250 / 250 hr IVPB DAILY@1700 [facility] Rx#: [id number] Magnesium Sulfate Premix 2gm/ 50 / 50 50mL 2 gm In 50 ml @ 50 mls/hr IVPB Q6H PRN Rx#:[id number] Flagyl Premix 500 MG/100 ML 500 200 / 200 100 / 100 mg In 100 ml @ 100 mls/hr IVPB Q6H [facility] Rx#:[id number] Vancocin 1,500 MG In Dextrose 5 250 / 250 % 250 ML @ 166.67 mls/hr IVPB Q12H [facility] Rx#:[id number] Output: Catheter 700 / 700 450 / 450 Other: Weight 136.8 kg Blood Glucose* 206 209 Patient Weight 06/09/17 23:59 Weight 136.8 kg - Labs 06/09/17 04:30 06/09/17 04:30 Diabetes panel 06/08/17 06/09/17 Range/Units 14:53 04:30 Sodium 131 L 132 L (136-145) mEq/L Potassium 4.4 4.5 (3.5-5.1) mEq/L Chloride 105 106 (98-107) mEq/L Carbon Dioxide 24 22 L (23-29) mEq/L BUN 25 H 27 H (8-23) mg/dL Creatinine 1.06 1.24 H (0.60-1.20) mg/dL Glucose 276 H 220 H (70-105) mg/dL Calcium 8.4 L 8.1 L (8.6-10.3) mg/dL AST 10 L (13-39) Units/L ALT 4 L (7-52) Units/L Alkaline Phosphatase 42 (34-104) Units/L Albumin 2.5 L (3.5-5.7) g/dL Calcium panel 06/08/17 06/08/17 06/09/17 Range/Units 14:53 14:53 04:30 Calcium 8.4 L 8.1 L (8.6-10.3) mg/dL Phosphorus 3.0 (2.7-4.5) mg/dL Albumin 2.5 L (3.5-5.7) g/dL 06/09/17 Range/Units 04:30 Calcium (8.6-10.3) mg/dL Phosphorus 3.1 (2.7-4.5) mg/dL Albumin (3.5-5.7) g/dL Pituitary panel 06/08/17 06/09/17 Range/Units 14:53 04:30 Sodium 131 L 132 L (136-145) mEq/L Potassium 4.4 4.5 (3.5-5.1) mEq/L Chloride 105 106 (98-107) mEq/L Carbon Dioxide 24 22 L (23-29) mEq/L BUN 25 H 27 H (8-23) mg/dL Creatinine 1.06 1.24 H (0.60-1.20) mg/dL Glucose 276 H 220 H (70-105) mg/dL Calcium 8.4 L 8.1 L (8.6-10.3) mg/dL Adrenal panel 06/08/17 06/09/17 Range/Units 14:53 04:30 Sodium 131 L 132 L (136-145) mEq/L Potassium 4.4 4.5 (3.5-5.1) mEq/L Chloride 105 106 (98-107) mEq/L Carbon Dioxide 24 22 L (23-29) mEq/L BUN 25 H 27 H (8-23) mg/dL Creatinine 1.06 1.24 H (0.60-1.20) mg/dL Glucose 276 H 220 H (70-105) mg/dL Calcium 8.4 L 8.1 L (8.6-10.3) mg/dL Total Bilirubin 0.4 (0.3-1.0) mg/dL AST 10 L (13-39) Units/L ALT 4 L (7-52) Units/L Alkaline Phosphatase 42 (34-104) Units/L Albumin 2.5 L (3.5-5.7) g/dL - VTE Documentation of Mechanical Device: Intermittent pneumatic compression device Consult Discharge Plan - Plan Referrals: Kole Barksdale MD [Primary Care Provider] - 06/08/17 9:45 am
[2017-06-09] MEDS: *HR* Heparin 5,000 UNIT/ML VIAL SQ SCH ×2 (08:58→15:12)
[2017-06-09] MEDS: *HR* LORazepam 2 MG/ML VIAL IVP PRN ×3 (08:58→20:02)
[2017-06-09] MEDS: Vancomycin 1,500 MG in D5% in Water 250 ML IVPB SCH (11:37)
[2017-06-09] MEDS: Insulin DETEMIR 100 UNIT/ML X5UNITS SQ SCH (15:12)
[2017-06-09] MEDS: Clinimix E 5%-15% SOLUTION 2,000 ML, Parenteral Amino Acid 10% 200 ML with MVI, adult ... IVC SCH ×2 (17:12→17:18)
--- NOTE | 2017-06-09 17:37 | Internal Med Progress Note ---
<MinervahaleyLeland alford - Last Filed: 06/09/17 17:35> Date of Encounter: 06/09/17 Time of Encounter: 08:15 - Assessment and plan (1) Perforated diverticulum Current Visit: Yes Status: Acute Assessment and plan: - ABD CT with multiple left sided colon and sigmoid diverticula with wall thickening and extraluminal gas/pneumoperitoneum consistent with acute perforated diverticulitis. - Repeat abdominal CT on 06/02/17 showing 1.17 cm x 3.9 cm x 2.7 cm abscess inferior to the proximal sigmoid colon, increased inflammation of the mesentery , new minimal right hydronephrosis suggestive of uriritis - POD #5 s/p sigmoid colectomy with stapled colocolonic anastomosis - Mild fever of 101.6 overnight, WBC of 14.9 with left shift, stable from previous. - Pain better controlled with [employer]ER dilaudid - Phenergren and Zofran PRN nausea -Continue TPN - Diet advancement per surgery. Plan - Changed ABx to cefepime, vanc day #2, flagyl day 13 - Continue dilaudid [employer]OCIATE [employer]ER - General surgery following. Continue ICU care - Continue TPN, NPO execpt ice chips (2) Diverticulitis Current Visit: Yes Status: Acute Assessment and plan: as above (3) HTN (hypertension) Current Visit: Yes Status: Acute Assessment and plan: - BP well controlled at this visit. Most recent of 130/73 this morning - Holding home BP meds due to NPO status Plan - Continue hydralazine IV PRN hypertension - Monitor given high amount of pain medications Qualifiers: Hypertension type: essential hypertension Qualified Code(s): I10 - Essential (primary) hypertension (4) Hypothyroidism Current Visit: Yes Status: Acute Assessment and plan: Continue IV levothyroxine while nothing by mouth Qualifiers: Hypothyroidism type: acquired Qualified Code(s): E03.9 - Hypothyroidism, unspecified (5) Obesity Current Visit: Yes Status: Chronic Assessment and plan: BMI 46, weight 131kg. lifestyle modifications encouraged as outpatient Qualifiers: Obesity type: due to excess calories Obesity classification: adult class 3 (BMI >= 40) Serious obesity comorbidity presence: without serious comorbidity Body mass index: BMI 45.0-49.9 Qualified Code(s): E66.01 - Morbid (severe) obesity due to excess calories; Z68.42 - Body mass index (BMI) 45.0-49.9, adult ; Z68.42 - Body mass index (BMI) 45.0-49.9, adult; Z68.42 - Body mass index (BMI ) 45.0-49.9, adult; Z68.42 - Body mass index (BMI) 45.0-49.9, adult (6) Hypoxia Current Visit: Yes Status: Acute Assessment and plan: - Oxygen saturation down to 84% on room air on admission. - Morbid obesity likely playing a role however she is on ASSOCIATE [employer]ER pump and at risk for hypoventilation syndrome vs pain induced hypoventilation - Currently tolerating 97% on 2L - No reported underlying lung disease. Plan - Supplemental O2 as necessary. Aggressive IS. - Will continue to monitor and attempt to wean. -Also encouraged to seated position as pain allows to prevent atelectasis (7) Cystitis Current Visit: Yes Status: Acute Assessment and plan: - ABD CT with thickening of bladder wall and questionable incomplete distention versus cystitis with mild hydronephrosis - Continue cefepime, vanc and Flagyl as above - Urology to place ureteral stent during surgery. Should follow up with urology as outpatient for stent removal. - Following, appreciate recs - Will monitor harry output, hydrate, monitor kidney function. (8) DVT prophylaxis Current Visit: Yes Status: Acute Assessment and plan: Discontinue heparin for hematuria. Start SCDs - Time Spent With Patient 25 - 35 minutes - Subjective Interval history: Patient was seen and examined at bedside this morning. Continues to have some pain but states it is better than previous. Still having nausea without vomiting. No bowel movements. - Constitutional Vitals: Temp Pulse Resp BP Pulse Ox 99.8 F H 101 24 130/73 97 06/09/17 17:00 06/09/17 17:00 06/09/17 17:00 06/09/17 17:00 06/09/17 17:00 General appearance: Present: A&O X 3, morbidly obese, pleasant, no acute distress, answers questions appropriately Exam: Gen.: Vitals noted. AAOx3. Morbidly obese, looks anxious with mild distress secondary to suspected pain. HEENT: PERRL/EOMI, oropharynx clear, Normocephalic, atraumatic, MMM Cardiac: RRR, no murmur, +S1/S2 Pulmonary: CTA bilaterally, no wheezes, rales or rhonchi, equal chest expansion Abdomen: soft, tender diffusely, BS noted, involuntary guarding and rebound present. Extremities: no BLE edema, nontender calf, no cyanosis or clubbing Neuro: A&Ox3, moves all extremities, no focal deficits Psych: Appropriate mood and behavior : Gross red urine in harry. Internal Medicine: Result - Labs CBC & Chem 7: 06/09/17 04:30 06/09/17 04:30 Labs: Short CBC 06/09/17 Range/Units 04:30 WBC 14.9 H (4.3-11.1) K/mcL Hgb 9.0 L (11.5-15.4) g/dL Hct 28.5 L (35.3-44.9) % Plt Count 248 (140-400) K/mcL Neutrophils # 11.6 H (1.6-8.9) K/mcL BMP 06/09/17 04:30 Sodium 132 L Potassium 4.5 Chloride 106 Carbon Dioxide 22 L BUN 27 H Creatinine 1.24 H Glucose 220 H Calcium 8.1 L Liver Function 06/09/17 Range/Units 04:30 Total Bilirubin 0.4 (0.3-1.0) mg/dL AST 10 L (13-39) Units/L ALT 4 L (7-52) Units/L Alkaline Phosphatase 42 (34-104) Units/L Albumin 2.5 L (3.5-5.7) g/dL - ABG Interpretation ABG results: ABG ABG pH 7.43 pH Units (7.32-7.45) 06/08/17 04:24 ABG pCO2 35 mmHg (35-45) 06/08/17 04:24 ABG pO2 72 mmHg (85-104) L 06/08/17 04:24 ABG O2 Saturation 95 % (95-98) 06/08/17 04:24 PT/INR, D-dimer PT 13.8 Seconds (9.4-12.1) H 05/30/17 06:42 - VTE Documentation of Mechanical Device: Intermittent pneumatic compression device Consult Discharge Plan - Plan Referrals: Kole Barksdale MD [Primary Care Provider] - 06/08/17 9:45 am <John Browne - Last Filed: 06/09/17 18:53> Date of Encounter: 06/09/17 - Assessment and plan (1) Diverticulitis large intestine Current Visit: Yes Status: Acute Qualifiers: Diverticulitis bleeding: without bleeding Diverticulitis complication: with perforation and abscess Qualified Code(s): K57.20 - Diverticulitis of large intestine with perforation and abscess without bleeding (2) Hyperglycemia Current Visit: Yes Status: Acute (3) HTN (hypertension) Current Visit: Yes Status: Acute Qualifiers: Hypertension type: essential hypertension Qualified Code(s): I10 - Essential (primary) hypertension (4) Hypothyroidism Current Visit: Yes Status: Acute Qualifiers: Hypothyroidism type: acquired Qualified Code(s): E03.9 - Hypothyroidism, unspecified (5) Morbid obesity with BMI of 45.0-49.9, adult Current Visit: Yes Status: Chronic (6) History of open sigmoidectomy Current Visit: Yes Status: Chronic - Constitutional Vitals: Temp Pulse Resp BP Pulse Ox 99.8 F H 101 24 130/73 97 06/09/17 17:00 06/09/17 17:30 06/09/17 17:00 06/09/17 17:00 06/09/17 17:00 Internal Medicine: Result - Labs CBC & Chem 7: 06/09/17 04:30 06/09/17 04:30 Labs: Short CBC 06/09/17 Range/Units 04:30 WBC 14.9 H (4.3-11.1) K/mcL Hgb 9.0 L (11.5-15.4) g/dL Hct 28.5 L (35.3-44.9) % Plt Count 248 (140-400) K/mcL Neutrophils # 11.6 H (1.6-8.9) K/mcL BMP 06/09/17 04:30 Sodium 132 L Potassium 4.5 Chloride 106 Carbon Dioxide 22 L BUN 27 H Creatinine 1.24 H Glucose 220 H Calcium 8.1 L Liver Function 06/09/17 Range/Units 04:30 Total Bilirubin 0.4 (0.3-1.0) mg/dL AST 10 L (13-39) Units/L ALT 4 L (7-52) Units/L Alkaline Phosphatase 42 (34-104) Units/L Albumin 2.5 L (3.5-5.7) g/dL - ABG Interpretation ABG results: ABG ABG pH 7.43 pH Units (7.32-7.45) 06/08/17 04:24 ABG pCO2 35 mmHg (35-45) 06/08/17 04:24 ABG pO2 72 mmHg (85-104) L 06/08/17 04:24 ABG O2 Saturation 95 % (95-98) 06/08/17 04:24 PT/INR, D-dimer PT 13.8 Seconds (9.4-12.1) H 05/30/17 06:42 - Attending Attestation I examined this patient and my medical decision-making was reviewed with the Resident Physician on 06/09/17. I agree with the documented findings, disposition and treatment plan as described except to the extent set forth below. Ms Mitchell is currently admitted for perforated diverticulum and is s/p resection. She remains high risk due to potential for worsening clinical status. Ms Mitchell is still having a lot of pain. She is breathing deeper today. Had temp overnight but now afebrile. Coughing a little. Exam Alert. Mod distress due to pain. Mucus membranes dry Heart tachy and regular Lungs diminished Abd distended. I/P 1. Perf diverticulum 2. DM Further diagnoses and plan as above.
[2017-06-10] MEDS: Albuterol 2.5 MG/3 ML NEBULIZER IH SCH ×6 (00:31→20:13)
[2017-06-10] MEDS: *HR* LORazepam 2 MG/ML VIAL IVP PRN (00:42)
[2017-06-10] MEDS: Ondansetron 4 MG/2 ML VIAL IVP PRN ×2 (00:42→05:11)
[2017-06-10] MEDS: Insulin LISPRO 300 UNITS/3 ML VIAL SQ SCH ×7 (00:43→23:32)
[2017-06-10] MEDS: Vancomycin 1,250 MG in D5% in Water 250 ML IVPB SCH ×2 (00:47→13:03)
[2017-06-10 04:54] LABS: Enterococcus by PCR Not Detected (Not Detect); blaKPC Carbapenem-Resist Gene Not Detected (Not Detect); mecA Methicillin-Resist Gene ***DETECTED*** (Not Detect); vanA/B Vancomycin-Resist Genes Not Detected (Not Detect)
[2017-06-10 04:55] LABS: Acinetobacter baumannii by PCR Not Detected (Not Detect); Candida albicans by PCR Not Detected (Not Detect); Candida glabrata by PCR Not Detected (Not Detect); Candida krusei by PCR Not Detected (Not Detect); Candida parapsilosis by PCR Not Detected (Not Detect); Candida tropicalis by PCR Not Detected (Not Detect); Escherichia coli by PCR Not Detected (Not Detect); Klebsiella oxytoca by PCR Not Detected (Not Detect); Klebsiella pneumoniae by PCR Not Detected (Not Detect); Pseudomonas aeruginosa by PCR Not Detected (Not Detect); Serratia marcescens by PCR Not Detected (Not Detect); Staphylococcus aureus by PCR ***DETECTED*** (Not Detect); Streptococcus agalactiae(B)PCR Not Detected (Not Detect); Streptococcus by PCR Not Detected (Not Detect); Streptococcus pneumoniae PCR Not Detected (Not Detect); Streptococcus pyogenes (A) PCR Not Detected (Not Detect)
[2017-06-10 05:00] LABS: Basophils % 0.4 %; Eosinophils # 0.3 K/mcL (0.0-0.6); Eosinophils % 2.7 %; Hematocrit 25.6 % (35.3-44.9); Hemoglobin 8.1 g/dL (11.5-15.4); Immature Granulocytes % 2.8 % (0-4); Lymphocytes # 1.3 K/mcL (0.6-4.6); Lymphocytes % 12.1 %; Mean Corpuscular HGB Conc 31.6 g/dL (31.6-35.5); Mean Corpuscular Hemoglobin 30.1 pg (28.0-33.3); Mean Corpuscular Volume 95.2 fL (83.0-100.0); Mean Platelet Volume 9.3 fL (9.4-12.4); Monocytes # 1.1 K/mcL (0.0-1.3); Monocytes % 10.4 %; Neutrophils # 7.8 K/mcL (1.6-8.9); Platelet Count 288 K/mcL (140-400); Red Blood Count 2.69 M/mcL (3.82-4.97); Segmented Neutrophils % 71.6 %
[2017-06-10] MEDS: Cefepime HCl 2,000 MG in Water for inj. (sterile) 20 ML 20 ML IVP SCH ×3 (05:09→18:26)
[2017-06-10] MEDS: MetroNIDAZOLE 500 MG/100 ML 500 MG/100 ML BAG IVPB SCH ×4 (05:09→20:17)
[2017-06-10] MEDS: Levothyroxine Sodium 100 MCG VIAL IVP SCH (05:53)
[2017-06-10 05:54] LABS: BUN/Creatinine Ratio 23 (6-26); Blood Urea Nitrogen 24 mg/dL (8-23); Calcium 7.8 mg/dL (8.6-10.3); Carbon Dioxide 22 mEq/L (23-29); Chloride 104 mEq/L (98-107); Glucose 219 mg/dL (70-105); Magnesium 1.8 mg/dL (1.6-2.6); Osmolality,Calculated 283 (280-300); Phosphorous 2.9 mg/dL (2.7-4.5); Sodium 131 mEq/L (136-145); Triglycerides 80 mg/dL (< 150); eGFR For African Americans > 60 (> 60); eGFR For Non-African Americans 54 (> 60)
[2017-06-10] MEDS: Pantoprazole 40 MG VIAL IVP SCH (09:13)
--- NOTE | 2017-06-10 09:24 | Internal Med Progress Note ---
<Leland Larson - Last Filed: 06/10/17 15:56> Date of Encounter: 06/10/17 Time of Encounter: 09:24 - Assessment and plan (1) Perforated diverticulum Current Visit: Yes Status: Acute Assessment and plan: - ABD CT with multiple left sided colon and sigmoid diverticula with wall thickening and extraluminal gas/pneumoperitoneum consistent with acute perforated diverticulitis. - Repeat abdominal CT on 06/02/17 showing 1.17 cm x 3.9 cm x 2.7 cm abscess inferior to the proximal sigmoid colon, increased inflammation of the mesentery , new minimal right hydronephrosis suggestive of uriritis - POD #6 s/p sigmoid colectomy with stapled colocolonic anastomosis - Mild fever of 100.3 overnight, WBC of 10.9 with left shift, decreased from previous - Pain better controlled with [employer] dilaudid - Phenergren and Zofran PRN nausea -Continue TPN - Diet advancement per surgery. Plan - Changed ABx to cefepime, vanc day #3, flagyl day 14 - Continue dilaudid MASTER CARPENTER - General surgery following. Continue ICU care - Continue TPN, NPO execpt ice chips (2) MRSA bacteremia Current Visit: Yes Status: Acute Assessment and plan: - Blood cultures positive for MRSA bacteremia - Suspected source is PICC line vs central venous line - ID consulted, appreciate recommendations - CXR, TTE ordered, pending. - Repeat blood cultures drawn this AM, 2 peripheral, 1 central line, 1 PICC line. - Tachycardic at 93, tachypnic at 26, Mayank 100.3. WBC wnl - Has been on Vancomycine, cefepime, day #3 - Urine culture was negative for growth. Plan - Continue vancomycin and cefepime, day 3 - Follow repeat cultures - Per ID, will remove PICC line and keep central line for TPN - Consider replacing central line once bacteremia clears. - Echo pending for vegetations. (3) Sepsis Current Visit: Yes Status: Acute Assessment and plan: - As above for MRSA bacteremia - Febrile, tachycardic, tachypnic. Qualifiers: Sepsis type: methicillin resistant Staphylococcus aureus Qualified Code(s) : A41.02 - Sepsis due to Methicillin resistant Staphylococcus aureus (4) Diverticulitis Current Visit: Yes Status: Acute Assessment and plan: as above (5) HTN (hypertension) Current Visit: Yes Status: Acute Assessment and plan: - BP well controlled at this visit. Most recent of 120/100 this morning - Holding home BP meds due to NPO status Plan - Continue hydralazine IV PRN hypertension - Monitor given high amount of pain medications Qualifiers: Hypertension type: essential hypertension Qualified Code(s): I10 - Essential (primary) hypertension (6) Hypothyroidism Current Visit: Yes Status: Acute Assessment and plan: Continue IV levothyroxine while nothing by mouth Qualifiers: Hypothyroidism type: acquired Qualified Code(s): E03.9 - Hypothyroidism, unspecified (7) Obesity Current Visit: Yes Status: Chronic Assessment and plan: BMI 46, weight 131kg. lifestyle modifications encouraged as outpatient Qualifiers: Obesity type: due to excess calories Obesity classification: adult class 3 (BMI >= 40) Serious obesity comorbidity presence: without serious comorbidity Body mass index: BMI 45.0-49.9 Qualified Code(s): E66.01 - Morbid (severe) obesity due to excess calories; Z68.42 - Body mass index (BMI) 45.0-49.9, adult ; Z68.42 - Body mass index (BMI) 45.0-49.9, adult; Z68.42 - Body mass index (BMI ) 45.0-49.9, adult; Z68.42 - Body mass index (BMI) 45.0-49.9, adult (8) Hypoxia Current Visit: Yes Status: Acute Assessment and plan: - Oxygen saturation down to 84% on room air on admission. - Morbid obesity likely playing a role however she is on MASTER CARPENTER pump and at risk for hypoventilation syndrome vs pain induced hypoventilation - Currently tolerating 97% on 2L - No reported underlying lung disease. Plan - Supplemental O2 as necessary. Aggressive IS. - Will continue to monitor and attempt to wean. -Also encouraged to seated position as pain allows to prevent atelectasis - CXR this afternoon for wheezing, pending. (9) Cystitis Current Visit: Yes Status: Acute Assessment and plan: - ABD CT with thickening of bladder wall and questionable incomplete distention versus cystitis with mild hydronephrosis - Continue cefepime, vanc and Flagyl as above - Urology to place ureteral stent during surgery. Should follow up with urology as outpatient for stent removal. - Following, appreciate recs - Will monitor harry output, hydrate, monitor kidney function. (10) DVT prophylaxis Current Visit: Yes Status: Acute Assessment and plan: Discontinue heparin for hematuria. Start SCDs - Subjective Interval history: Patient was seen and examined at bedside this morning. Continues to have some pain but states it is better than previous. Still having nausea without vomiting. No bowel movements. - Constitutional Vitals: Temp Pulse Resp BP Pulse Ox 98.7 F 93 21 120/100 100 06/10/17 08:31 06/10/17 06:03 06/10/17 08:08 06/10/17 06:03 06/10/17 08:08 General appearance: Present: A&O X 3, morbidly obese, pleasant, no acute distress, answers questions appropriately Exam: Gen.: Vitals noted. Mild acute distress secondary to pain. AAOx3. HEENT: PERRL/EOMI, oropharynx clear, Normocephalic, atraumatic, MMM Cardiac: RRR, no murmur, +S1/S2 Pulmonary: Wheezes present bilaterally, equal chest expansion Abdomen: soft, tender to palpation diffusely, BS noted, involuntary guarding and rebound present. MSK: ROM intact, no joint swelling noted Extremities: no BLE edema, nontender calf, no cyanosis or clubbing Neuro: A&Ox3, moves all extremities, no focal deficits Psych: Appropriate mood and behavior Internal Medicine: Result - Labs CBC & Chem 7: 06/10/17 04:40 06/10/17 04:40 Labs: Short CBC 06/10/17 Range/Units 04:40 WBC 10.9 (4.3-11.1) K/mcL Hgb 8.1 L (11.5-15.4) g/dL Hct 25.6 L (35.3-44.9) % Plt Count 288 (140-400) K/mcL Neutrophils # 7.8 (1.6-8.9) K/mcL BMP 06/10/17 04:40 Sodium 131 L Potassium 4.0 Chloride 104 Carbon Dioxide 22 L BUN 24 H Creatinine 1.04 Glucose 219 H Calcium 7.8 L - ABG Interpretation ABG results: ABG ABG pH 7.43 pH Units (7.32-7.45) 06/08/17 04:24 ABG pCO2 35 mmHg (35-45) 06/08/17 04:24 ABG pO2 72 mmHg (85-104) L 06/08/17 04:24 ABG O2 Saturation 95 % (95-98) 06/08/17 04:24 PT/INR, D-dimer PT 13.8 Seconds (9.4-12.1) H 05/30/17 06:42 - VTE Documentation of Mechanical Device: Intermittent pneumatic compression device Consult Discharge Plan - Plan Referrals: Kole Barksdale MD [Primary Care Provider] - 06/08/17 9:45 am <John Browne - Last Filed: 06/10/17 19:44> Date of Encounter: 06/10/17 - Assessment and plan (1) Acute respiratory failure with hypoxia Current Visit: Yes Status: Acute (2) MRSA (methicillin resistant Staphylococcus aureus) infection Current Visit: Yes Status: Acute (3) MRSA bacteremia Current Visit: Yes Status: Acute (4) Diverticulitis large intestine Current Visit: Yes Status: Acute Qualifiers: Diverticulitis bleeding: without bleeding Diverticulitis complication: with perforation and abscess Qualified Code(s): K57.20 - Diverticulitis of large intestine with perforation and abscess without bleeding (5) Hyperglycemia Current Visit: Yes Status: Acute (6) HTN (hypertension) Current Visit: Yes Status: Acute Qualifiers: Hypertension type: essential hypertension Qualified Code(s): I10 - Essential (primary) hypertension (7) Hypothyroidism Current Visit: Yes Status: Acute Qualifiers: Hypothyroidism type: acquired Qualified Code(s): E03.9 - Hypothyroidism, unspecified (8) Morbid obesity with BMI of 45.0-49.9, adult Current Visit: Yes Status: Chronic (9) History of open sigmoidectomy Current Visit: Yes Status: Chronic - Constitutional Vitals: Temp Pulse Resp BP Pulse Ox 99.7 F H 100 20 116/71 95 06/10/17 16:00 06/10/17 18:00 06/10/17 18:00 06/10/17 18:00 06/10/17 18:00 Internal Medicine: Result - Labs CBC & Chem 7: 06/10/17 04:40 06/10/17 04:40 Labs: Short CBC 06/10/17 Range/Units 04:40 WBC 10.9 (4.3-11.1) K/mcL Hgb 8.1 L (11.5-15.4) g/dL Hct 25.6 L (35.3-44.9) % Plt Count 288 (140-400) K/mcL Neutrophils # 7.8 (1.6-8.9) K/mcL BMP 06/10/17 04:40 Sodium 131 L Potassium 4.0 Chloride 104 Carbon Dioxide 22 L BUN 24 H Creatinine 1.04 Glucose 219 H Calcium 7.8 L - ABG Interpretation ABG results: ABG ABG pH 7.43 pH Units (7.32-7.45) 06/08/17 04:24 ABG pCO2 35 mmHg (35-45) 06/08/17 04:24 ABG pO2 72 mmHg (85-104) L 06/08/17 04:24 ABG O2 Saturation 95 % (95-98) 06/08/17 04:24 PT/INR, D-dimer PT 13.8 Seconds (9.4-12.1) H 05/30/17 06:42 - Impressions Impressions Chest X-Ray 06/10/17 14:33 IMPRESSION: Free air under the right hemidiaphragm, unchanged. No acute findings in the chest. D/ / Maria E Ojeda MD / Maria E Ojeda MD Interpreting Provider: Maria E Ojeda MD - Attending Attestation I examined this patient and my medical decision-making was reviewed with the Resident Physician on 06/10/17. I agree with the documented findings, disposition and treatment plan as described except to the extent set forth below. Ms Mitchell is currently admitted for perf diverticulum. She remains high risk due to potential for worsening clinical status. Ms Mitchell feels about the same. No fever. Blood cx positive for MRSA. Exam Alert. Mod distress Heart reg Wheeze heard on R Abd soft I/P 1. MRSA bacteremia 2. DM Further diagnoses and plan as above.
[2017-06-10] MEDS ORDERED: 0.9 % Sodium Chloride 1,000 ML IVC SCH (09:30)
[2017-06-10] MEDS: Insulin DETEMIR 100 UNIT/ML X5UNITS SQ SCH (10:02)
--- NOTE | 2017-06-10 10:47 | Infectious Disease Consult ---
Date of Encounter: 06/10/17 Time of Encounter: 10:34 Assessment and Plan (1) Sepsis Status: Acute Assessment and plan: On admission was tachypneic with white blood cell count of 16.9 Secondary to sigmoid diverticulitis with perforation Continues to have elevated temperatures 100.2, 100.3 otherwise afebrile. Max temperature 101.6 on 06/09. White blood cell count trended up after exploratory celiotomy with sigmoid colectomy. Initial blood cultures on were negative. Urine cultures on 06/03/17 and 06/08/17 were negative. Blood cultures of PICC line and CBC on 06/07/17 grew MRSA. She was started on Cipro and Flagyl on 05/29. Antibiotics were escalated on 06/08 to vancomycin, cefepime and Flagyl was continued. Qualifiers: Sepsis type: methicillin resistant Staphylococcus aureus Qualified Code(s) : A41.02 - Sepsis due to Methicillin resistant Staphylococcus aureus (2) Perforated diverticulum Status: Acute Assessment and plan: Patient presented with acute onset of sharp abdominal pain. Has history of sigmoid diverticulitis. CT abdomen on 05/29 showed pneumoperitoneum with diverticulitis of sigmoid colon. Patient underwent exploratory celiotomy with sigmoid colectomy on 06/04/17. She had a PICC line and subclavian CVC placed and confirmed by chest x-ray on . Patient was also started on Cipro and Flagyl on 05/29. Due to worsening status including fever, leukocytosis patients antibiotics were broadened to vancomycin and cefepime and Flagyl as continued. Cultures on are negative. Creatinine clearance is 81 Plan: Continue cefepime 2000 mg every 8h hours and Flagyl 500 mg every 6 hours (3) MRSA bacteremia Status: Acute Assessment and plan: Blood cultures from 06/08 from subclavian CVC and PICC line are positive for MRSA. Patient started on vancomycin and cefepime on 06/08 Since starting vancomycin patient's white blood cell count has improved from 15.1-10.9. Last trough of vancomycin was 18.3. Patient had repeat blood cultures drawn this morning including CvC, PICC and peripheral. According to nurse plan is to replace central lines. Plan: Continue vancomycin 1250 mg daily and cefepime 2000 mg every 8 hours. Will await repeat blood culture results. (4) Hypothyroidism Status: Acute Assessment and plan: As per primary. Qualifiers: Hypothyroidism type: acquired Qualified Code(s): E03.9 - Hypothyroidism, unspecified (5) Hydronephrosis Status: Acute Assessment and plan: Discovered on CT abdomen 06/02 which showed right hydroureter with right ureteritis and bilateral pyelitis Underwent on 06/04/17 right ureteral stent placement and left ureteral catheter placement by urology. Patient has had 2 urine cultures which have been negative for growth. Urinalysis does not indicate any signs of infection. Patient has a Don catheter out pitting light red urine. Likely secondary to urologic procedure. Patient is on broad-spectrum antibiotics, vancomycin, cefepime which will cover urinary tract infection. Repeat CT abdomen and pelvis on 06/07 showed improvement of right hydronephrosis and stable stent placement. Has follow-up with urology for stent removal Qualifiers: Hydronephrosis type: other Qualified Code(s): N13.39 - Other hydronephrosis (6) DVT prophylaxis Status: Acute (7) HTN (hypertension) Status: Acute Assessment and plan: Controlled. Qualifiers: Hypertension type: essential hypertension Qualified Code(s): I10 - Essential (primary) hypertension (8) Hypoxia Status: Acute Assessment and plan: As per primary. Infectious Disease HPI - Data of Consult Patient: new to practice Consult date: 06/10/17 Requesting Physician: John Browne DO Primary Care Provider: Kole Barksdale MD - Consult Narrative Reason for consult: MRSA infection History of present illness: Ms. Mitchell is a 61 year old female with history of hypothyroidism, hypertension, hyperlipidemia, CKD 3 presented on 05/28/17-87 year with acute abdominal pain. Infectious disease consult was placed on 06/10 for MRSA bacteremia. Stephen for admission patient had acute abdominal pain as diffuse, worse in the shortness of breath and movement associated nausea and vomiting with green emesis. She has never had pain like this before. On presentation patient was afebrile, heart rate 98, heart rate of 24, blood pressure 174/84 and SPO2 97. Her white blood cell count was 16.9 predominantly neutrophilic. Lactic acid was 1.1. Lipase was 28. Patient's urinalysis showed no abnormalities. CT abdomen pelvis done on 05/29 showed pneumoperitoneum with possible diverticular perforation of the sigmoid colon. Chest x-ray on 05/30 was negative for any acute abnormalities. Patient was seen by Dr. Machuca and started on ciprofloxacin and metronidazole. Surgery was deferred until acute inflammation of the abdomen had decreased. Patient repeat CT abdomen 06/02 which showed abscess of the sigmoid colon measuring 1.7 cm x 3.9 cm x 2.7 cm, decreased pneumoperitoneum also new right hydroureter with right uteritis, bilateral pyelitis. Patient was started on TPN. Patient had blood cultures drawn on which were negative. Urine cultures drawn on and 06/08 were negative as well. Patient underwent to operative procedures. On 06/04/17 urology placed a right ureteral stent and a left urethral catheter. She then underwent exploratory celiotomy with sigmoid colon colectomy and colocolonic anastomosis. On 06/04 patient has chest x-ray and KUB which showed a right PICC line, left subclavian CVC, and atelectasis versus pneumonia in the right lung base. She had repeat CT abdomen on 06/07 which showed moderate air in the abdomen, intact colonic anastomosis and bilateral lower quadrant loculated fluid effusion with concern of abscess. She also had a chest x-ray on 06/08 which was within normal limits. Despite aggressive antibiotic regimen patient was spiking fever. With maximal temperature of 101.6 on 06/09. Tachycardic, tachypneic, requiring oxygen supplementation. Patient had repeat blood cultures taken on 06/08 from PICC line and subclavian CVC which are now positive for MRSA. On 06/08 patient was started on vancomycin and cefepime and ciprofloxacin was discontinued. Patient was continued on metronidazole. This morning patient is afebrile, heart rate less than 24 with respiratory rate of 21, blood pressure 126/73 on 3 L via nasal cannula saturating 100%. Repeat blood cultures have been ordered today which will be drawn from PICC line, subclavian CVC and peripherally. Thereafter patient will have the PICC line and CVC replaced. CC: John Browne, DO Past Med Surg Social Fam HX - Past Medical History Medical history: hyperlipidemia, hypertension, renal disease, other Psychiatric history: no psych history - Past Surgical History Surgical History: appendectomy, cholecystectomy, knee replacement, other - Social History Smoking Status: Never smoker Smokeless Tobacco Status: No Alcohol use: rarely Drug use: none - Family History Mother Name: Peggy Swift Living Status: Age at : 70 Cause of : kidney failure Hx Family Cardiac Disorders: Yes Infectious Disease-CN:Meds Cyclobenzaprine [Flexeril] 10 mg PO TID PRN 05/29/17 [History] Ergocalciferol (VITAMIN D2) [Vitamin D2] 50,000 unit PO MO 05/29/17 [History] Furosemide [Lasix] 20 mg PO DAILY 05/29/17 [History] Levothyroxine [Synthroid] 50 mcg PO DAILY 05/29/17 [History] Losartan [Cozaar] 25 mg PO DAILY 05/29/17 [History] Oxycodone HCl/Acetaminophen [Percocet 10-325 mg Tablet] 1 each PO Q4-6H PRN [History] Potassium Chloride [K-Tab ER] 10 meq PO DAILY 05/29/17 [History] Ranitidine HCl [Acid Rn Ostomy] 150 mg PO BID 05/29/17 [History] Aspirin Enteric Coated [Aspirin EC] 81 mg PO DAILY 05/31/17 [History] 3 Allergy/AdvReac Type Severity Reaction Status Date / Time Penicillins Allergy Hives Verified 05/29/17 08:23 Sulfa (Sulfonamide Allergy Hives Verified 05/29/17 08:23 Antibiotics) Review of systems: Constitutional: Denies fever, chills HEENT: Denies headache, vision changes, neck pain, sore throat, rhinorrhea Heart: Denies chest pain palpitations Lungs: Coarse shortness of breath, denies cough Abdomen: First abdominal pain, denies nausea, vomiting, diarrhea. Back: Denies back pain Kidney: Denies dysuria, reports Don catheter. Skin: warm and dry Extremities: Denies swelling, pain Neuro: Denies numbness, and tingling Exam - Constitutional Vitals: Temp Pulse Resp BP Pulse Ox 98.7 F 94 21 126/73 100 06/10/17 08:31 06/10/17 10:00 06/10/17 10:00 06/10/17 10:00 06/10/17 09:00 - Additional findings Additional findings: General: Pleasant with mild distress. Obese. HEENT: Head atraumatic, normocephalic, EOMI, PERRL, neck nontender to palpation , absent lymphadenopathy, Moist Mucous Membranes, Heart: Regular rate and rhythm with no murmur Lungs: Bilateral wheezing anteriorly. Abdomen: Soft tenderness to palpation diffusely. Intact midline incision without drainage. Hypoactive bowel sounds. Skin: warm and dry Extremities: Absent pedal edema, : Patient has Don catheter pitting light red urine. Neuro: Alert oriented 3 Vascular: Pedal and radial pulses 2 out of 4 Infectious Disease CN: Results - Labs CBC & Chem 7: 06/10/17 04:40 06/10/17 04:40 Cultures: Cultures 06/08/17 04:20 Urine Culture - Final Urine,Clean Catch No significant growth. 06/08/17 06:33 Blood Culture - Preliminary Central Venous Catheter Staphylococcus aureus Staphylococcus species mecA Gene 06/08/17 06:33 Blood Culture - Preliminary Peripheral Central Cath, Picc Staphylococcus aureus Staphylococcus species mecA Gene 06/03/17 09:25 Urine Culture - Final Urine,Don Port No growth. 05/30/17 09:56 Blood Culture - Final Peripheral Venipuncture No growth. 05/30/17 10:10 Blood Culture - Final Peripheral Venipuncture No growth. Serology: Serology 06/08/17 06/08/17 Range/Units 06:33 04:20 Ur Specimen Adequacy Urine Color Dark Yellow (Yellow) Urine Clarity Clear (Clear) Urine pH 6.0 (5.0-8.0) pH Units Ur Specific [place] > 1.030 H (1.010-1.025) Urine Protein 100 H (Neg-Trace) mg/dL Urine Glucose (UA) 100 H (Normal) mg/dL Urine Ketones Negative (Negative) mg/dL Urine Blood Large H (Negative) Urine Nitrite Negative (Negative) Urine Bilirubin Negative (Negative) Urine Urobilinogen Normal (Normal) mg/dL Ur Leukocyte Esterase Small H (Negative) Ur Culture Indicated? YES A (NO) A. baumannii (PCR) Not Detected (Not Detect) Jayna albicans (PCR) Not Detected (Not Detect) C. glabrata (PCR) Not Detected (Not Detect) C. krusei (PCR) Not Detected (Not Detect) C. parapsilosis (PCR) Not Detected (Not Detect) C. tropicalis (PCR) Not Detected (Not Detect) Enterobacteriac sp PCR Not Detected (Not Detect) E. cloacae complex PCR Not Detected (Not Detect) Enterococcus sp PCR Not Detected (Not Detect) E. coli (PCR) Not Detected (Not Detect) H. influenzae (PCR) Not Detected (Not Detect) Klebsiella oxytoca PCR Not Detected (Not Detect) Klebsiella pneumoniae Not Detected (Not Detect) List. monocytogenes PCR Not Detected (Not Detect) N. meningitidis (PCR) Not Detected (Not Detect) Proteus species (PCR) Not Detected (Not Detect) Serratia marcescens PCR Not Detected (Not Detect) Staphylococcus sp PCR DETECTED A (Not Detect) Staph aureus (PCR) DETECTED A (Not Detect) mecA-Methicil Res Gene DETECTED A (Not Detect) Streptococcus sp PCR Not Detected (Not Detect) Group A Strep DNA Not Detected (Not Detect) Group B Strep (PCR) Not Detected (Not Detect) Strep pneumoniae (PCR) Not Detected (Not Detect) P. aeruginosa (PCR) Not Detected (Not Detect) Bryant/B-Vanco Res Genes Not Detected (Not Detect) KPC (blaKPC) Detect PCR Not Detected (Not Detect) - VTE Documentation of Mechanical Device: Intermittent pneumatic compression device Consult Discharge Plan - Plan Referrals: Kole Barksdale MD [Primary Care Provider] - 06/08/17 9:45 am - Attending Attestation I examined this patient and my medical decision-making was reviewed with the Resident Physician. I agree with the documented findings, disposition and treatment plan as described except to the extent set forth below. Patient is a 61 year old woman with past medial history mentioned below that was admitted to [facility] on 05/29/17 with acute abdominal pain due to a perforated diverticulum, we are consulted on 06/10/17 for MRSA bacteremia. Patient is a 61 year old woman with past medical history including HTN, hyperlipidemia, renal disease who presented to [facility] with sudden onset abdominal pain x 1 day. Her pain was associated with nausea and vomiting of green bile. Apparently she had no fevers or chills at home. no diarrhea or constipation. In the ED, patient was found to be febrile with a temp of 100.3F, mildly tachycardia and normotensive. Her presenting WBC was 16.9 with neutrophilic predominance and no bands. rest of the labs revealed BUN/Cr ration and normal U/ A and a normal lactic acid. A CT abdomen pelvis revealed pneumoperitoneum likely secondary to complicated diverticulitis of the sigmoid colon and thickening of the wall of the urinary bladder. A CXR on 05/30 was non revealing.Patient was started on cipro and flagyl and made NPO and Dr. Machuca was following. During hospital stay: 06/02/17 CT abdomen revealed a 1.7 x 3.9x2.7 cm abscess inferior to the proximal sigmoid colon with increased inflammation in the mesenteries with increased peritonitis and a hydronephrosis on the right with suspected cystitis. on 06/04/17 pt underwent a cystoscopy with right ureteral stent placement and left ureteral cath placement for right hydronephrosis 06/04/17 pt underwent an exploratory celiotomy, sigmoid colectomy with stapled colocolonic anastomosis and intra operative rigid sigmoidoscopy. no intra op cultures obtained on 06/06/17, patient had a low grade fever again that persisted through Today. WBC jumped from 8000 to about 14.9 on 06/09 with neutrophilic predominance and she had mild acute kidney changes 06/08 urine and blood cultures were obtained. Blood cultures grew MRSA 2/2 sets , the urine culture was no growth. The culture was positive from both peripheral and central line. (Time to positivity not clear) 06/08/17 pt was changed to vancomycin and cefepime and flagyl and cipro was d/teresita Today patient appears comfortable laying in bed. I'm still nothing by mouth and has TPN going. He should has been having trouble breathing with some significant wheezing. She doesn't have high O2 demands she's only on 2 L satting about 94-95%. Patient tells me that she has a nebulizer machine at home that she uses infrequently when she has an asthma attack. On physical exam patient does not have any conjunctival hemorrhage. She does have an oral thrush. Patient has a central line in the left chest that does not appear grossly infected. Lungs with significant wheezing. Chest expanding symmetrically. Cardiovascular and did not appreciate any murmur. S1 and S2 regular. Abdomen soft no guarding no peritoneal signs surgical wound appears clean enedina are still intact. Extremities patient has a PICC line in the right upper extremity the also appears clean and no gross infection noted. Lower extremity with adequate perfusion no edema. Back patient does not have any tenderness over the vertebral spines. Patient does have a prosthetic knee on the left that does not appear to be infected with normal range of motion and no effusion no erythema. Skin patient has no endocarditis stigmata. At this point I had a long discussion with Dr. Browne and Dr. machuca regarding the patient. Patient does have MRSA bacteremia likely source is the either central line or the peripherally inserted central line. We have no peripheral culture to check for time to positivity. At this time we have no peripheral access and we decided to remove the PICC line first continue IV antibiotics repeat cultures. Once the cultures in the blood are negative for 48 hours then we can remove the central line and insert another PICC line. Dr. machuca is okay with the plan. I'm also concerned that the patient has significant wheezing and concern for possible septic emboli. We will repeat a chest x-ray today. Also spoke with Dr. machuca and the patient will need a EMILIE prior to discharge to rule out endocarditis. Patient has only one major and maybe 1 or 2 minor [place] criteria. I'll had a very high index of suspicion but we will see. As for the ruptured diverticulum with abscess. Patient post op and seems to be doing okay clinically. Agree with the current antibiotic regimen including cefepime and Flagyl. Duration of treatment depends on the clinical picture. Patient is nothing by mouth right now so we will continue with IV antibiotics for now. As for the oral thrush we will do nystatin swish and swallow 5 mL every 6 hours. We will continue vancomycin and cefepime and Flagyl for now. Duration of treatment with vancomycin depends on the clinical picture and the EMILIE findings.
[2017-06-10] MEDS ORDERED: Furosemide 40 MG/4 ML VIAL IVP ONE (12:07)
[2017-06-10] MEDS ORDERED: Acetaminophen 325 MG TABLET PO PRN (12:09)
--- NOTE | 2017-06-10 13:12 | General Surgery Progress Note ---
Date of Encounter: 06/10/17 Time of Encounter: 12:55 Subjective Patient reports: feels better Narrative: General Surgery - POD #6 patient feeling better; resting comfortably on my presentation to bedside Maximum temperature 100.3; heart rate on my arrival 96 however on awakening heart rate immediately increased to 103; respiratory rate 22-24; Blood pressure stable 126/74-129/78. Lungs: wheezes bilaterally, no obvious abdominal pain with deep inspiration Abdomen: Soft with tenderness predominantly in the right lower quadrant - abdominal tenderness diminished; active bowel sounds; patient passing flatus. Midline incision clean and dry. Urine output 1625 mL for calendar day 06/09/17; 2575 mL so far today Blood cultures positive for MRSA bacteremia; discussed with Dr Mauricio, Infectious Disease Pathology: Confirms the clinical diagnosis. Acute perforated sigmoid diverticulitis. No neoplasm identified. Laboratories: White count has normalized to 10.9; neutrophilia also resolved Hemoglobin 8.1 with hematocrit 25.6 - with the increased urine output and wheezing suspect dilutional effect Sodium 131, potassium 4.0, carbon dioxide 22, BUN has improved to 24 and creatinine has improved to 1.04. eGFR increased to 54 (previously 44) Impression/Plan: Postoperative day 6, status post exploratory celiotomy sigmoid colectomy with stapled colocolonic anastomosis. Patient with MRSA bacteremia - likely due to one or both of the central lines (PICC RUE and CVL left subclavian) Bowel activity evident - allow clear liquids As we are able to advance diet, taper TPN and reduce IV fluids Continue current ATB Maintain harry for acurrate I&O Furosemide for diuresis Remove PICC with culture of tip; maintain CVL for the patient 's continued IV access needs Accuchecks - improved with addition of Levemir to sliding scale coverage Objective Vital Signs - Last 8 Hours Temp Pulse Resp BP Pulse Ox 06/10/17 12:00 100.2 F H 107 23 129/78 97 06/10/17 11:41 22 98 06/10/17 11:00 99 24 126/74 98 06/10/17 10:00 94 21 126/73 06/10/17 09:00 94 23 126/72 100 06/10/17 08:31 98.7 F 06/10/17 08:08 21 100 06/10/17 08:00 90 22 130/76 97 06/10/17 07:00 89 24 124/75 99 06/10/17 06:03 93 26 120/100 97 Intake and Output 06/09/17 06/10/17 06/10/17 23:59 07:59 15:59 Intake Total 2768 / 2768 500 / 500 1120 / 1120 Output Total 825 / 825 1075 / 1075 1500 / 1500 Balance 1943 / 1943 -575 / -575 -380 / -380 Intake: IV Fluids 1220 / 1220 500 / 500 1120 / 1120 D5% And 0.45% Nacl 1000 Ml Bag 1000 / 1000 1000 / 1000 1,000 ML @ 75 mls/hr IVC . [id number] [facility] Rx#:[id number] Maxipime 2,000 MG In Water for 20 20 / 20 inj. (sterile) 20 ML @ 300 mls/ hr IVP Q8H [facility] Rx#:[id number] Intralipid 20% 250 ML @ 21 mls/ 250 / 250 hr IVPB DAILY@1700 [facility] Rx#: [id number] Flagyl Premix 500 MG/100 ML 500 200 / 200 100 / 100 mg In 100 ml @ 100 mls/hr IVPB Q6H [facility] Rx#:[id number] Vancocin 1,250 MG In Dextrose 5 250 / 250 % 250 ML @ 166.667 mls/hr IVPB Q12H [facility] Rx#:[id number] Oral 0 / 0 0 / 0 Infusion Intake 1548 / 1548 Output: Catheter 825 / 825 1075 / 1075 1500 / 1500 Other: Weight 141.1 kg Blood Glucose* 202 235 156 Patient Weight 06/10/17 23:59 Weight 141.1 kg - Labs 06/10/17 04:40 06/10/17 04:40 Diabetes panel 06/10/17 Range/Units 04:40 Sodium 131 L (136-145) mEq/L Potassium 4.0 (3.5-5.1) mEq/L Chloride 104 (98-107) mEq/L Carbon Dioxide 22 L (23-29) mEq/L BUN 24 H (8-23) mg/dL Creatinine 1.04 (0.60-1.20) mg/dL Glucose 219 H (70-105) mg/dL Calcium 7.8 L (8.6-10.3) mg/dL Triglycerides 80 (< 150) mg/dL Calcium panel 06/10/17 Range/Units 04:40 Calcium 7.8 L (8.6-10.3) mg/dL Phosphorus 2.9 (2.7-4.5) mg/dL Pituitary panel 06/10/17 Range/Units 04:40 Sodium 131 L (136-145) mEq/L Potassium 4.0 (3.5-5.1) mEq/L Chloride 104 (98-107) mEq/L Carbon Dioxide 22 L (23-29) mEq/L BUN 24 H (8-23) mg/dL Creatinine 1.04 (0.60-1.20) mg/dL Glucose 219 H (70-105) mg/dL Calcium 7.8 L (8.6-10.3) mg/dL Adrenal panel 06/10/17 Range/Units 04:40 Sodium 131 L (136-145) mEq/L Potassium 4.0 (3.5-5.1) mEq/L Chloride 104 (98-107) mEq/L Carbon Dioxide 22 L (23-29) mEq/L BUN 24 H (8-23) mg/dL Creatinine 1.04 (0.60-1.20) mg/dL Glucose 219 H (70-105) mg/dL Calcium 7.8 L (8.6-10.3) mg/dL - VTE Documentation of Mechanical Device: Intermittent pneumatic compression device Consult Discharge Plan - Plan Referrals: Kole Barksdale MD [Primary Care Provider] - 06/08/17 9:45 am
[2017-06-10] MEDS: *HR* Promethazine 25 MG/ML VIAL IVP PRN ×2 (14:26→20:18)
[2017-06-10] MEDS: 0.9 % Sodium Chloride 1,000 ML IVC SCH (14:36)
[2017-06-10] MEDS ORDERED: Clinimix E 5%-15% SOLUTION 2,000 ML, Parenteral Amino Acid 10% 200 ML with MVI, adult ... IVC SCH (17:00)
[2017-06-10] MEDS: Nystatin SUSP 5 ML UD.LIQ PO SCH ×2 (17:20→20:17)
[2017-06-10] MEDS: Clinimix E 5%-15% SOLUTION 2,000 ML, Parenteral Amino Acid 10% 200 ML with MVI, adult ... IVC SCH (17:34)
[2017-06-10] MEDS: *HR* HYDROmorphone 20 MG/20 ML PCA IVC PRN (19:05)
[2017-06-11] MEDS: Albuterol 2.5 MG/3 ML NEBULIZER IH SCH ×7 (00:23→23:21)
[2017-06-11] MEDS: Vancomycin 1,250 MG in D5% in Water 250 ML IVPB SCH ×2 (00:30→13:30)
[2017-06-11 00:38] LABS: Magnesium 1.9 mg/dL (1.6-2.6); Phosphorous 3.9 mg/dL (2.7-4.5)
[2017-06-11] MEDS: Ondansetron 4 MG/2 ML VIAL IVP PRN (01:09)
[2017-06-11] MEDS: *HR* LORazepam 2 MG/ML VIAL IVP PRN (02:43)
[2017-06-11] MEDS: MetroNIDAZOLE 500 MG/100 ML 500 MG/100 ML BAG IVPB SCH ×3 (02:55→16:28)
[2017-06-11] MEDS: Cefepime HCl 2,000 MG in Water for inj. (sterile) 20 ML 20 ML IVP SCH ×3 (02:58→19:27)
[2017-06-11 03:45] LABS: Basophils # 0.1 K/mcL (0.0-0.2); Basophils % 0.5 %; Eosinophils # 0.3 K/mcL (0.0-0.6); Eosinophils % 2.7 %; Hematocrit 25.9 % (35.3-44.9); Hemoglobin 8.2 g/dL (11.5-15.4); Immature Granulocytes % 3.3 % (0-4); Lymphocytes # 1.6 K/mcL (0.6-4.6); Lymphocytes % 14.7 %; Mean Corpuscular HGB Conc 31.7 g/dL (31.6-35.5); Mean Corpuscular Hemoglobin 29.9 pg (28.0-33.3); Mean Corpuscular Volume 94.5 fL (83.0-100.0); Mean Platelet Volume 9.4 fL (9.4-12.4); Monocytes # 1.4 K/mcL (0.0-1.3); Monocytes % 13.4 %; Nucleated Red Blood Cells 0.2 /100 WBC (0); Platelet Count 351 K/mcL (140-400); Red Blood Count 2.74 M/mcL (3.82-4.97); Red Cell Distribution Width 14.2 % (11.5-14.5); Segmented Neutrophils % 65.4 %
[2017-06-11] MEDS: Insulin LISPRO 300 UNITS/3 ML VIAL SQ SCH ×5 (04:01→20:06)
[2017-06-11 04:16] LABS: BUN/Creatinine Ratio 23 (6-26); Blood Urea Nitrogen 24 mg/dL (8-23); Carbon Dioxide 26 mEq/L (23-29); Chloride 102 mEq/L (98-107); Glucose 166 mg/dL (70-105); Magnesium 1.9 mg/dL (1.6-2.6); Osmolality,Calculated 284 (280-300); Phosphorous 3.6 mg/dL (2.7-4.5); Potassium 3.7 mEq/L (3.5-5.1); Sodium 133 mEq/L (136-145); eGFR For African Americans > 60 (> 60); eGFR For Non-African Americans 54 (> 60)
[2017-06-11 04:31] LABS: Platelet Estimate Normal (Normal)
[2017-06-11] MEDS: *HR* Promethazine 25 MG/ML VIAL IVP PRN ×3 (09:14→19:27)
[2017-06-11] MEDS: Nystatin SUSP 5 ML UD.LIQ PO SCH ×4 (09:15→19:28)
[2017-06-11] MEDS: Pantoprazole 40 MG VIAL IVP SCH (09:15)
[2017-06-11] MEDS: Insulin DETEMIR 100 UNIT/ML X5UNITS SQ SCH (09:18)
--- NOTE | 2017-06-11 13:12 | Infectious Disease Progress No ---
Date of Encounter: 06/11/17 Time of Encounter: 13:10 - Assessment and Plan (1) Sepsis Current Visit: Yes Status: Acute Presented with 3 sutures criteria. Continues to be tachycardic, febrile. Leukocytosis resolved. Secondary to complicated diverticulitis, and MRSA bacteremia. Qualifiers: Sepsis type: methicillin resistant Staphylococcus aureus Qualified Code(s) : A41.02 - Sepsis due to Methicillin resistant Staphylococcus aureus (2) Perforated diverticulum Current Visit: Yes Status: Acute Patient presented with acute onset of sharp abdominal pain. Has history of sigmoid diverticulitis. CT abdomen on 05/29 showed pneumoperitoneum with diverticulitis of sigmoid colon. Patient underwent exploratory celiotomy with sigmoid colectomy on 06/04/17. She had a PICC line and subclavian CVC placed and confirmed by chest x-ray on . Patient was also started on Cipro and Flagyl on 05/29. patient became febrie 06/09, with worsening leukocytosis and antibiotics were broadened to vancomycin and cefepime and Flagyl as continued. Cultures on are negative. Creatinine clearance 81 today Plan: Continue cefepime 2000 mg every 12h hours and Flagyl 500 mg every 8 hours (3) MRSA bacteremia Current Visit: Yes Status: Acute Complicated MRSA bacteremia patient had left knee prosthetic joint Blood cultures from 06/08 from subclavian CVC and PICC line are positive for MRSA. Patient started on vancomycin and cefepime on 06/08 Since starting vancomycin patient's white blood cell count has improved from 15.1-10.9. Last trough of vancomycin was 18.3. Patient had repeat blood cultures drawn this morning including CvC, PICC and peripheral. PICC line replaced yesterday: culture of tip preliminary negative Plan: Continue vancomycin 1250 mg daily. awaiting repeat blood cultures Antibiotic duration will be determined by results of EMILIE. (4) Endocarditis Current Visit: Yes Status: Suspected MRSA bacteremia Meets one major [place] criteria (MRSA bactermia) and one minor (fever) TTE: LVEF 65-70% mild tricuspid regurgiations, no vavular vegetations are noted Janeway lesions, ulcers noted. Heart Murmur. Plan: Routine notified of needed for EMILIE. ON vancomycin. Qualifiers: Endocarditis type: unspecified Chronicity: acute Qualified Code(s): I33.9 - Acute and subacute endocarditis, unspecified (5) Hypothyroidism Current Visit: Yes Status: Acute As per primary. Qualifiers: Hypothyroidism type: acquired Qualified Code(s): E03.9 - Hypothyroidism, unspecified (6) Hypoxia Current Visit: Yes Status: Acute patient requiring O2 supplementation since being admitted O2 requirement decreased from 3L to 2L over last 24 hours. on lung exam has b/l wheezing concern for septic emboli CXR-negative for pleural effusion, consolidation. Free air under the right hemidiaphragm noted again unchanged. patient reports abdominal pain with inspiration which is also contributing plan: continue monitoring respiratory status, patient will be worked up for endocarditis as noted above. (7) Hydronephrosis Current Visit: Yes Status: Acute Discovered on CT abdomen 06/02 which showed right hydroureter with right ureteritis and bilateral pyelitis Underwent on 06/04/17 right ureteral stent placement and left ureteral catheter placement by urology. Patient has had 2 urine cultures which have been negative for growth. Urinalysis does not indicate any signs of infection. Patient has a Don catheter out pitting light red urine. Likely secondary to urologic procedure. Patient is on broad-spectrum antibiotics, vancomycin, cefepime which will cover urinary tract infection. Repeat CT abdomen and pelvis on 06/07 showed improvement of right hydronephrosis and stable stent placement. Has follow-up with urology for stent removal no change in management from ID prespective. Qualifiers: Hydronephrosis type: other Qualified Code(s): N13.39 - Other hydronephrosis (8) DVT prophylaxis Current Visit: Yes Status: Acute (9) HTN (hypertension) Current Visit: Yes Status: Acute Qualifiers: Hypertension type: essential hypertension Qualified Code(s): I10 - Essential (primary) hypertension - Subjective Interval history: Patient was sitting up in chair eating breakfast this morning. She reported that she was nauseous, having a lot of abdominal pain, shortness of breath secondary to setting up in the chair. Patient's PICC line was replaced yesterday. She continues to be febrile with a temperature of 101 yesterday evening. Infect Dis PN-Objective Data - Labs CBC & Chem 7: 06/14/17 05:02 06/14/17 05:02 Labs: Laboratory Results - last 24 hr 06/10/17 06/10/17 06/10/17 03:45 07:40 11:43 WBC RBC Hgb Hct MCV MCH MCHC RDW Plt Count MPV Immature Gran % Seg Neutrophils % Lymphocytes % Monocytes % Eosinophils % Basophils % Neutrophils # Lymphocytes # Monocytes # Eosinophils # Basophils # Nucleated RBCs/100 WBC Platelet Estimate Sodium Potassium Chloride Carbon Dioxide BUN Creatinine Est GFR ( Amer) Est GFR (Non-Af Amer) BUN/Creatinine Ratio Glucose POC Glucose 235 H 185 H 156 H Calculated Osmolality Calcium Phosphorus Magnesium 06/10/17 06/10/17 06/10/17 17:18 20:20 23:25 WBC RBC Hgb Hct MCV MCH MCHC RDW Plt Count MPV Immature Gran % Seg Neutrophils % Lymphocytes % Monocytes % Eosinophils % Basophils % Neutrophils # Lymphocytes # Monocytes # Eosinophils # Basophils # Nucleated RBCs/100 WBC Platelet Estimate Sodium Potassium Chloride Carbon Dioxide BUN Creatinine Est GFR ( Amer) Est GFR (Non-Af Amer) BUN/Creatinine Ratio Glucose POC Glucose 158 H 185 H 166 H Calculated Osmolality Calcium Phosphorus Magnesium 06/10/17 06/11/17 06/11/17 23:53 02:53 02:53 WBC 10.7 RBC 2.74 L Hgb 8.2 L Hct 25.9 L MCV 94.5 MCH 29.9 MCHC 31.7 RDW 14.2 Plt Count 351 MPV 9.4 Immature Gran % 3.3 Seg Neutrophils % 65.4 Lymphocytes % 14.7 Monocytes % 13.4 Eosinophils % 2.7 Basophils % 0.5 Neutrophils # 7.0 Lymphocytes # 1.6 Monocytes # 1.4 H Eosinophils # 0.3 Basophils # 0.1 Nucleated RBCs/100 WBC 0.2 H Platelet Estimate Normal Sodium 133 L Potassium 3.7 Chloride 102 Carbon Dioxide 26 BUN 24 H Creatinine 1.04 Est GFR ( Amer) > 60 Est GFR (Non-Af Amer) 54 L BUN/Creatinine Ratio 23 Glucose 166 H POC Glucose Calculated Osmolality 284 Calcium 8.0 L Phosphorus 3.9 3.6 Magnesium 1.9 1.9 Cultures: Cultures 06/08/17 06:33 Blood Culture - Preliminary Peripheral Central Cath, Picc Staphylococcus aureus 06/08/17 06:33 Blood Culture - Preliminary Central Venous Catheter Staphylococcus aureus 06/08/17 04:20 Urine Culture - Final Urine,Clean Catch No significant growth. 06/03/17 09:25 Urine Culture - Final Urine,Don Port No growth. 05/30/17 09:56 Blood Culture - Final Peripheral Venipuncture No growth. 05/30/17 10:10 Blood Culture - Final Peripheral Venipuncture No growth. Serology 06/08/17 06/08/17 Range/Units 06:33 04:20 Ur Specimen Adequacy Urine Color Dark Yellow (Yellow) Urine Clarity Clear (Clear) Urine pH 6.0 (5.0-8.0) pH Units Ur Specific [place] > 1.030 H (1.010-1.025) Urine Protein 100 H (Neg-Trace) mg/dL Urine Glucose (UA) 100 H (Normal) mg/dL Urine Ketones Negative (Negative) mg/dL Urine Blood Large H (Negative) Urine Nitrite Negative (Negative) Urine Bilirubin Negative (Negative) Urine Urobilinogen Normal (Normal) mg/dL Ur Leukocyte Esterase Small H (Negative) Ur Culture Indicated? YES A (NO) A. baumannii (PCR) Not Detected (Not Detect) Jayna albicans (PCR) Not Detected (Not Detect) C. glabrata (PCR) Not Detected (Not Detect) C. krusei (PCR) Not Detected (Not Detect) C. parapsilosis (PCR) Not Detected (Not Detect) C. tropicalis (PCR) Not Detected (Not Detect) Enterobacteriac sp PCR Not Detected (Not Detect) E. cloacae complex PCR Not Detected (Not Detect) Enterococcus sp PCR Not Detected (Not Detect) E. coli (PCR) Not Detected (Not Detect) H. influenzae (PCR) Not Detected (Not Detect) Klebsiella oxytoca PCR Not Detected (Not Detect) Klebsiella pneumoniae Not Detected (Not Detect) List. monocytogenes PCR Not Detected (Not Detect) N. meningitidis (PCR) Not Detected (Not Detect) Proteus species (PCR) Not Detected (Not Detect) Serratia marcescens PCR Not Detected (Not Detect) Staphylococcus sp PCR DETECTED A (Not Detect) Staph aureus (PCR) DETECTED A (Not Detect) mecA-Methicil Res Gene DETECTED A (Not Detect) Streptococcus sp PCR Not Detected (Not Detect) Group A Strep DNA Not Detected (Not Detect) Group B Strep (PCR) Not Detected (Not Detect) Strep pneumoniae (PCR) Not Detected (Not Detect) P. aeruginosa (PCR) Not Detected (Not Detect) Bryant/B-Vanco Res Genes Not Detected (Not Detect) KPC (blaKPC) Detect PCR Not Detected (Not Detect) - Impressions Impressions Chest X-Ray 06/10/17 14:33 IMPRESSION: Free air under the right hemidiaphragm, unchanged. No acute findings in the chest. D/ / Maria E Ojeda MD / Maria E Ojeda MD Interpreting Provider: Maria E Ojeda MD Echocardiogram 06/10/17 14:33 Impressions: Sinus tachycardia. LVEF 65-70%. Mild left ventricular diastolic dysfunction. Normal right ventricular structure and function. Mild tricuspid regurgitation. Probably mild hypertension, TR gradient 34 mmHg. IVC is not well visualized. Valvular vegetations are not appreciated on this study. Left Ventricular Wall Motion: Rest Echo Findings All wall segments showed normal motion. Findings: Study Quality * Technically adequate exam. ECG Findings * Sinus tachycardia. Left Ventricle * LVEF 65-70%. * Normal LV size and wall thickness. * Mild left ventricular diastolic dysfunction. Right Ventricle * Normal right ventricular structure and function. Left Atrium * Mildly dilated left atrium. Right Atrium * Normal right atrial size. Aortic Valve * No aortic regurgitation. * Trileaflet aortic valve. * No aortic stenosis. Mitral Valve * Normal mitral valve structure. * No mitral regurgitation. * No mitral stenosis. Tricuspid Valve * Tricuspid valve not well visualized. * Mild tricuspid regurgitation. Pulmonic Valve * Pulmonic valve is not well visualized. * No pulmonic stenosis. * No pulmonic regurgitation. Pulmonary Artery * Pulmonary artery not well visualized. Interatrial Septum * Interatrial septum not well evaluated. Exam - Constitutional Vitals: Temp Pulse Resp BP Pulse Ox 101.1 F H 98 25 114/96 99 06/11/17 11:47 06/11/17 13:00 06/11/17 13:00 06/11/17 13:00 06/11/17 13:00 - Additional findings Additional findings: General: moderate distress HEENT: oral thrush Heart: sinus tachycardia without murmur Lungs: Bilateral wheezing anteriorly. tachypneia Abdomen: Soft tenderness to palpation diffusely. Intact midline incision without drainage. Hypoactive bowel sounds. Skin: warm and dry Extremities: Absent pedal edema, absent janeway lesions and osler node. Left prosthetic knee w/o infection. absent joint effusions : Patient has Don catheter light red urine. Neuro: Alert oriented 3 Vascular: Pedal and radial pulses 2 out of 4 - VTE Documentation of Mechanical Device: Intermittent pneumatic compression device Consult Discharge Plan - Plan Referrals: Kole Barksdale MD [Primary Care Provider] - 06/08/17 9:45 am - Attending Attestation I examined this patient and my medical decision-making was reviewed with the Resident Physician. I agree with the documented findings, disposition and treatment plan as described except to the extent set forth below.
--- NOTE | 2017-06-11 13:34 | General Surgery Progress Note ---
Date of Encounter: 06/11/17 Time of Encounter: 13:10 Subjective Narrative: General Surgery - POD #7 Patient feeling somewhat better; she is complaining of new onset cramping abdominal pain possibly due to return of bowel function Mild nausea persists but improved from her complaints several days ago; she is tolerating clear liquids but only able to eat a bite or 2. Afebrile through the night but around noontime spiked a fever to 101.1. Heart rate 75-98, respirations 16-25; blood pressure 109/60 to 114/96 Lungs: Clear; patient still complaining of pain on deep inspiration Abdomen: Soft, active bowel sounds but diffusely tender. No discernible intra-abdominal masses. Patient passing flatus; midline incision clean and dry Urine output: 6975 mL for 06/10/17; 1150 mL so far today Labs: WBC 10.7; hemoglobin 8.2, hematocrit 25.9; platelet count 351,000, differential within normal limits except for monocytes which is increased to 1.4 % Sodium 133 (improved from 131) potassium 3.7, chloride 102, bicarbonate 26. BUN 24, creatinine 1.04 Impression/Plan: Postoperative day 7; status post exploratory celiotomy sigmoid colectomy with stapled colocolonic anastomosis for acute perforated sigmoid diverticulitis. Abdominal pain appears to be related to increasing bowel function, however, an intrapelvic abscess cannot be excluded. Early inflammatory changes were evident on CT dated 06/07/17. CT to be repeated for interval assessment. MRSA bacteremia - patient appears to be responding to IV antibiotics Patient tolerating clear liquids; we will advance to full liquids with concomitant tapering of TPN. The intralipids will be discontinued. TPN rate will be reduced. This has been discussed with dietary. Continue IV antibiotics for intra abdominal inflammation - Cefipime and metronidazole pending CT results Postoperative nausea, possibly due to metronidazole Objective Vital Signs - Last 8 Hours Temp Pulse Resp BP Pulse Ox 06/11/17 13:00 98 25 114/96 99 06/11/17 12:00 75 25 109/60 99 06/11/17 11:47 101.1 F H 06/11/17 11:13 16 97 06/11/17 11:01 94 16 117/69 95 06/11/17 10:00 106 16 121/60 95 06/11/17 09:00 105 16 157/70 95 06/11/17 08:39 16 95 06/11/17 08:35 105 06/11/17 08:00 105 20 118/64 96 06/11/17 07:00 98.4 F 06/11/17 05:49 100 20 113/75 96 Intake and Output 06/10/17 06/11/17 06/11/17 23:59 07:59 15:59 Intake Total 2630 / 2630 1245 / 1245 150 / 150 Output Total 4400 / 4400 800 / 800 350 / 350 Balance -1770 / -1770 445 / 445 -200 / -200 Intake: IV Fluids 380 / 380 1245 / 1245 120 / 120 0.9 % Sodium Chloride 1,000 ML 575 / 575 @ 25 mls/hr IVC .Q24H [facility] Rx#: [id number] Maxipime 2,000 MG In Water for 20 / 20 20 / 20 20 / 20 inj. (sterile) 20 ML @ 300 mls/ hr IVP Q8H [facility] Rx#:[id number] Intralipid 20% 250 ML @ 21 mls/ 250 / 250 hr IVPB DAILY@1700 [facility] Rx#: [id number] Magnesium Sulfate Premix 2gm/ 50 / 50 50mL 2 gm In 50 ml @ 50 mls/hr IVPB Q6H PRN Rx#:[id number] Flagyl Premix 500 MG/100 ML 500 100 / 100 100 / 100 100 / 100 mg In 100 ml @ 100 mls/hr IVPB Q6H [facility] Rx#:[id number] Sodium Phosphate 30 MMOL In 0.9 260 / 260 % Sodium Chloride 250 ML @ 42 mls/hr IVPB Q12H PRN Rx#: [id number] Vancocin 1,250 MG In Dextrose 5 250 / 250 % 250 ML @ 166.667 mls/hr IVPB Q12H [facility] Rx#:[id number] Oral 50 / 50 0 / 0 30 / 30 Infusion Intake 2200 / 2200 Output: Catheter 4400 / 4400 800 / 800 350 / 350 Other: Meal Lunch Percent of Meal Consumed 5% Weight 138.2 kg Blood Glucose* 185 161 179 Patient Weight 06/11/17 23:59 Weight 138.2 kg - Labs 06/11/17 02:53 06/11/17 02:53 Diabetes panel 06/11/17 Range/Units 02:53 Sodium 133 L (136-145) mEq/L Potassium 3.7 (3.5-5.1) mEq/L Chloride 102 (98-107) mEq/L Carbon Dioxide 26 (23-29) mEq/L BUN 24 H (8-23) mg/dL Creatinine 1.04 (0.60-1.20) mg/dL Glucose 166 H (70-105) mg/dL Calcium 8.0 L (8.6-10.3) mg/dL Calcium panel 06/10/17 06/11/17 Range/Units 23:53 02:53 Calcium 8.0 L (8.6-10.3) mg/dL Phosphorus 3.9 3.6 (2.7-4.5) mg/dL Pituitary panel 06/11/17 Range/Units 02:53 Sodium 133 L (136-145) mEq/L Potassium 3.7 (3.5-5.1) mEq/L Chloride 102 (98-107) mEq/L Carbon Dioxide 26 (23-29) mEq/L BUN 24 H (8-23) mg/dL Creatinine 1.04 (0.60-1.20) mg/dL Glucose 166 H (70-105) mg/dL Calcium 8.0 L (8.6-10.3) mg/dL Adrenal panel 06/11/17 Range/Units 02:53 Sodium 133 L (136-145) mEq/L Potassium 3.7 (3.5-5.1) mEq/L Chloride 102 (98-107) mEq/L Carbon Dioxide 26 (23-29) mEq/L BUN 24 H (8-23) mg/dL Creatinine 1.04 (0.60-1.20) mg/dL Glucose 166 H (70-105) mg/dL Calcium 8.0 L (8.6-10.3) mg/dL - VTE Documentation of Mechanical Device: Intermittent pneumatic compression device Consult Discharge Plan - Plan Referrals: Kole Barksdale MD [Primary Care Provider] - 06/08/17 9:45 am
[2017-06-11] MEDS: 0.9 % Sodium Chloride 1,000 ML IVC SCH (16:27)
[2017-06-11] MEDS ORDERED: Clinimix E 5%-15% SOLUTION 2,000 ML with MVI, adult with vitamin K 10 ML IVC SCH (17:00)
[2017-06-11] MEDS ORDERED: Furosemide 40 MG/4 ML VIAL IVP ONE (17:04)
--- NOTE | 2017-06-11 18:01 | Event Note ---
Date of Encounter: 06/11/17 Time of Encounter: 16:55 CT abdomen and pelvis completed this evening personally reviewed with [facility]. Findings include mild decrease in the volume of the pneumoperitoneum; persistent peritoneal inflammation with several fluid collections increased in size and demonstrating peripheral enhancement consistent with organization. Increased stranding and haziness in the mesentery with scattered prominent lymph nodes which are presumably reactive. The increased mesenteric stranding may be due to the increased soft tissue fluid but warrants continued monitoring and treatment with ATB. Increased soft tissue fluid collections along the ventral abdominal incision, possible wound seroma v superficial abscess exacerbated by the soft tissue anasarca.
--- NOTE | 2017-06-11 18:39 | Internal Med Progress Note ---
<Leland Larson - Last Filed: 06/11/17 18:51> Date of Encounter: 06/11/17 Time of Encounter: 08:15 - Assessment and plan (1) Perforated diverticulum Current Visit: Yes Status: Acute Assessment and plan: - ABD CT with multiple left sided colon and sigmoid diverticula with wall thickening and extraluminal gas/pneumoperitoneum consistent with acute perforated diverticulitis. - Repeat abdominal CT on 06/02/17 showing 1.17 cm x 3.9 cm x 2.7 cm abscess inferior to the proximal sigmoid colon, increased inflammation of the mesentery , new minimal right hydronephrosis suggestive of uriritis - CT on 06/11/17 demonstrating decreased pneumoperitoneum, multiloculated fluid collection scattered throughout the albumin and pelvis which appeared to have increased in size, fluid collections along the incision line. Surgeon aware of findings - POD #7 s/p sigmoid colectomy with stapled colocolonic anastomosis - Afebrile overnight, WBC of 10.7, stable from previous - Pain better controlled with [employer] dilaudid - Phenergren and Zofran PRN nausea - Continue TPN - Diet advancement per surgery. Plan - Changed ABx to cefepime, vanc day #4 - We will discontinue Flagyl today as she reports she has had previous side effects of nausea - Continue dilaudid [employer] - General surgery following. Continue ICU care - Continue TPN, diet advancement per surgery (2) MRSA bacteremia Current Visit: Yes Status: Acute Assessment and plan: - Blood cultures positive for MRSA bacteremia - Suspected source is PICC line vs central venous line - ID consulted, appreciate recommendations - TTE ordered, pending. - Repeat blood cultures drawn this AM, 2 peripheral, 1 central line, 1 PICC line. - PICC line removed and tip sent for culture - Tachycardic at 100, tachypnic at 20, afebrile. WBC wnl - Has been on Vancomycine, cefepime, day #4 - Urine culture was negative for growth. - ID as suspicion of endocarditis, meets one major and one minor Herrera criteria. Requesting EMILIE. TTE shows ejection fraction of 65-70% with mild tricuspid regurgitation, no vegetations noted Plan - Continue vancomycin and cefepime, day 4 - Follow repeat cultures - Per ID, will remove PICC line and keep central line for TPN - Consider replacing central line once bacteremia clears. - Transesophageal Echo pending (3) Sepsis Current Visit: Yes Status: Acute Assessment and plan: - As above for MRSA bacteremia - AFebrile, tachycardic, tachypnic. Qualifiers: Sepsis type: methicillin resistant Staphylococcus aureus Qualified Code(s) : A41.02 - Sepsis due to Methicillin resistant Staphylococcus aureus (4) Diverticulitis Current Visit: Yes Status: Acute Assessment and plan: as above (5) HTN (hypertension) Current Visit: Yes Status: Acute Assessment and plan: - BP well controlled at this visit. Most recent of 113/75 this morning - Holding home BP meds due to NPO status Plan - Continue hydralazine IV PRN hypertension - Monitor given high amount of pain medications Qualifiers: Hypertension type: essential hypertension Qualified Code(s): I10 - Essential (primary) hypertension (6) Hypothyroidism Current Visit: Yes Status: Acute Assessment and plan: Continue IV levothyroxine while nothing by mouth Qualifiers: Hypothyroidism type: acquired Qualified Code(s): E03.9 - Hypothyroidism, unspecified (7) Obesity Current Visit: Yes Status: Chronic Assessment and plan: BMI 46, weight 131kg. lifestyle modifications encouraged as outpatient Qualifiers: Obesity type: due to excess calories Obesity classification: adult class 3 (BMI >= 40) Serious obesity comorbidity presence: without serious comorbidity Body mass index: BMI 45.0-49.9 Qualified Code(s): E66.01 - Morbid (severe) obesity due to excess calories; Z68.42 - Body mass index (BMI) 45.0-49.9, adult ; Z68.42 - Body mass index (BMI) 45.0-49.9, adult; Z68.42 - Body mass index (BMI ) 45.0-49.9, adult; Z68.42 - Body mass index (BMI) 45.0-49.9, adult (8) Hypoxia Current Visit: Yes Status: Acute Assessment and plan: - Oxygen saturation down to 84% on room air on admission. - Morbid obesity likely playing a role however she is on [employer] pump and at risk for hypoventilation syndrome vs pain induced hypoventilation - Currently tolerating 96% on 2L - No reported underlying lung disease. - Likey secondary to atelectasis possible component of pulmonary edema Plan - Supplemental O2 as necessary. Aggressive IS. - Will continue to monitor and attempt to wean. -Also encouraged to seated position as pain allows to prevent atelectasis - Revealing improved with Lasix yesterday. Continue monitoring at this time (9) Cystitis Current Visit: Yes Status: Acute Assessment and plan: - ABD CT with thickening of bladder wall and questionable incomplete distention versus cystitis with mild hydronephrosis - Continue cefepime, vanc - Urology to place ureteral stent during surgery. Should follow up with urology as outpatient for stent removal. - Following, appreciate recs - Will monitor harry output, hydrate, monitor kidney function. (10) DVT prophylaxis Current Visit: Yes Status: Acute Assessment and plan: Discontinue heparin for hematuria. Start SCDs - Time Spent With Patient 25 - 35 minutes - Subjective Interval history: Patient was seen and examined at bedside this morning. She states that she continues to have pain, however she does state it is moderately controlled with Dilaudid [employer]. Morning she does report increased nausea and has been unable to tolerate diet, but does report that she has not been receiving her phenegren as scheduled. As a symptoms of fevers, chills, states that her breathing is same as previous. - Constitutional Vitals: Temp Pulse Resp BP Pulse Ox 98.0 F 94 25 125/64 99 06/11/17 16:00 06/11/17 18:00 06/11/17 18:00 06/11/17 18:00 06/11/17 18:00 General appearance: Present: A&O X 3, morbidly obese, pleasant, no acute distress, answers questions appropriately Exam: Gen.: Vitals noted. Morbidly obese female in mild acute distress secondary to pain. Does appear to have increased color today. Sitting up at bedside HEENT: PERRL/EOMI, oropharynx clear, Normocephalic, atraumatic Cardiac: RRR, no murmur, +S1/S2 Pulmonary: Mild wheezing diffusely, however improved from previous otherwise CTA bilaterally, no wheezes, rales or rhonchi, equal chest expansion Abdomen: soft, tender to palpation diffusely throughout her abdomen, bowel sounds present but hypoactive, rebound tenderness present Extremities: no BLE edema, nontender calf, no cyanosis or clubbing Neuro: A&Ox3, moves all extremities, no focal deficits Psych: Appropriate mood and behavior Internal Medicine: Result - Labs CBC & Chem 7: 06/11/17 02:53 06/11/17 02:53 Labs: Short CBC 06/11/17 Range/Units 02:53 WBC 10.7 (4.3-11.1) K/mcL Hgb 8.2 L (11.5-15.4) g/dL Hct 25.9 L (35.3-44.9) % Plt Count 351 (140-400) K/mcL Neutrophils # 7.0 (1.6-8.9) K/mcL BMP 06/11/17 02:53 Sodium 133 L Potassium 3.7 Chloride 102 Carbon Dioxide 26 BUN 24 H Creatinine 1.04 Glucose 166 H Calcium 8.0 L - ABG Interpretation ABG results: ABG ABG pH 7.43 pH Units (7.32-7.45) 06/08/17 04:24 ABG pCO2 35 mmHg (35-45) 06/08/17 04:24 ABG pO2 72 mmHg (85-104) L 06/08/17 04:24 ABG O2 Saturation 95 % (95-98) 06/08/17 04:24 PT/INR, D-dimer PT 13.8 Seconds (9.4-12.1) H 05/30/17 06:42 - Impressions Impressions Echocardiogram 06/10/17 14:33 Impressions: Sinus tachycardia. LVEF 65-70%. Mild left ventricular diastolic dysfunction. Normal right ventricular structure and function. Mild tricuspid regurgitation. Probably mild hypertension, TR gradient 34 mmHg. IVC is not well visualized. Valvular vegetations are not appreciated on this study. Left Ventricular Wall Motion: Rest Echo Findings All wall segments showed normal motion. Findings: Study Quality * Technically adequate exam. ECG Findings * Sinus tachycardia. Left Ventricle * LVEF 65-70%. * Normal LV size and wall thickness. * Mild left ventricular diastolic dysfunction. Right Ventricle * Normal right ventricular structure and function. Left Atrium * Mildly dilated left atrium. Right Atrium * Normal right atrial size. Aortic Valve * No aortic regurgitation. * Trileaflet aortic valve. * No aortic stenosis. Mitral Valve * Normal mitral valve structure. * No mitral regurgitation. * No mitral stenosis. Tricuspid Valve * Tricuspid valve not well visualized. * Mild tricuspid regurgitation. Pulmonic Valve * Pulmonic valve is not well visualized. * No pulmonic stenosis. * No pulmonic regurgitation. Pulmonary Artery * Pulmonary artery not well visualized. Interatrial Septum * Interatrial septum not well evaluated. Abdomen/Pelvis CT 06/11/17 16:00 IMPRESSION: Overall decreased (but persistent) pneumoperitoneum. Multiloculated fluid collection scattered throughout the abdomen and pelvis, however, have for the most part increased in size and demonstrate new thin peripheral enhancement suggesting organization/abscess formation. Oral contrast reaches the mid bowel at the time of imaging. No evidence of contrast extravasation. Unchanged appearance of the sigmoid colonic anastomosis. Fluid collections along the abdominal incision have increase in size, largest along the infraumbilical incision line. Features of increasing volume/fluid status, including progressive soft tissue anasarca, mesenteric edema and mild increase in size of small bilateral effusions. The findings were sent to the Radiology Results Communication [facility] at 5:01 pm on 06/11/2017to be communicated to a licensed caregiver. D/ / 06/11/2017 17:05:52 Alpesh Hammond / Edilma Tesfaye Interpreting Provider: Alpesh Hammond - VTE Documentation of Mechanical Device: Intermittent pneumatic compression device Consult Discharge Plan - Plan Referrals: Kole Barksdale MD [Primary Care Provider] - 06/08/17 9:45 am <John Browne - Last Filed: 06/11/17 18:56> Date of Encounter: 06/11/17 - Assessment and plan (1) Acute respiratory failure with hypoxia Current Visit: Yes Status: Acute (2) MRSA (methicillin resistant Staphylococcus aureus) infection Current Visit: Yes Status: Acute (3) MRSA bacteremia Current Visit: Yes Status: Acute (4) Diverticulitis large intestine Current Visit: Yes Status: Acute Qualifiers: Diverticulitis bleeding: without bleeding Diverticulitis complication: with perforation and abscess Qualified Code(s): K57.20 - Diverticulitis of large intestine with perforation and abscess without bleeding (5) Hyperglycemia Current Visit: Yes Status: Acute (6) HTN (hypertension) Current Visit: Yes Status: Acute Qualifiers: Hypertension type: essential hypertension Qualified Code(s): I10 - Essential (primary) hypertension (7) Hypothyroidism Current Visit: Yes Status: Acute Qualifiers: Hypothyroidism type: acquired Qualified Code(s): E03.9 - Hypothyroidism, unspecified (8) Morbid obesity with BMI of 45.0-49.9, adult Current Visit: Yes Status: Chronic (9) History of open sigmoidectomy Current Visit: Yes Status: Chronic - Constitutional Vitals: Temp Pulse Resp BP Pulse Ox 98.0 F 94 25 125/64 99 06/11/17 16:00 06/11/17 18:00 06/11/17 18:00 06/11/17 18:00 06/11/17 18:00 Internal Medicine: Result - Labs CBC & Chem 7: 06/11/17 02:53 06/11/17 02:53 Labs: Short CBC 06/11/17 Range/Units 02:53 WBC 10.7 (4.3-11.1) K/mcL Hgb 8.2 L (11.5-15.4) g/dL Hct 25.9 L (35.3-44.9) % Plt Count 351 (140-400) K/mcL Neutrophils # 7.0 (1.6-8.9) K/mcL BMP 06/11/17 02:53 Sodium 133 L Potassium 3.7 Chloride 102 Carbon Dioxide 26 BUN 24 H Creatinine 1.04 Glucose 166 H Calcium 8.0 L - ABG Interpretation ABG results: ABG ABG pH 7.43 pH Units (7.32-7.45) 06/08/17 04:24 ABG pCO2 35 mmHg (35-45) 06/08/17 04:24 ABG pO2 72 mmHg (85-104) L 06/08/17 04:24 ABG O2 Saturation 95 % (95-98) 06/08/17 04:24 PT/INR, D-dimer PT 13.8 Seconds (9.4-12.1) H 05/30/17 06:42 - Impressions Impressions Echocardiogram 06/10/17 14:33 Impressions: Sinus tachycardia. LVEF 65-70%. Mild left ventricular diastolic dysfunction. Normal right ventricular structure and function. Mild tricuspid regurgitation. Probably mild hypertension, TR gradient 34 mmHg. IVC is not well visualized. Valvular vegetations are not appreciated on this study. Left Ventricular Wall Motion: Rest Echo Findings All wall segments showed normal motion. Findings: Study Quality * Technically adequate exam. ECG Findings * Sinus tachycardia. Left Ventricle * LVEF 65-70%. * Normal LV size and wall thickness. * Mild left ventricular diastolic dysfunction. Right Ventricle * Normal right ventricular structure and function. Left Atrium * Mildly dilated left atrium. Right Atrium * Normal right atrial size. Aortic Valve * No aortic regurgitation. * Trileaflet aortic valve. * No aortic stenosis. Mitral Valve * Normal mitral valve structure. * No mitral regurgitation. * No mitral stenosis. Tricuspid Valve * Tricuspid valve not well visualized. * Mild tricuspid regurgitation. Pulmonic Valve * Pulmonic valve is not well visualized. * No pulmonic stenosis. * No pulmonic regurgitation. Pulmonary Artery * Pulmonary artery not well visualized. Interatrial Septum * Interatrial septum not well evaluated. Abdomen/Pelvis CT 06/11/17 16:00 IMPRESSION: Overall decreased (but persistent) pneumoperitoneum. Multiloculated fluid collection scattered throughout the abdomen and pelvis, however, have for the most part increased in size and demonstrate new thin peripheral enhancement suggesting organization/abscess formation. Oral contrast reaches the mid bowel at the time of imaging. No evidence of contrast extravasation. Unchanged appearance of the sigmoid colonic anastomosis. Fluid collections along the abdominal incision have increase in size, largest along the infraumbilical incision line. Features of increasing volume/fluid status, including progressive soft tissue anasarca, mesenteric edema and mild increase in size of small bilateral effusions. The findings were sent to the Radiology Results Communication Center at 5:01 pm on 06/11/2017to be communicated to a licensed caregiver. D/ / 06/11/2017 17:05:52 Alpesh Hammond / Edilma Tesfaye Interpreting Provider: Alpesh Hammond - Attending Attestation I examined this patient and my medical decision-making was reviewed with the Resident Physician on 06/11/17. I agree with the documented findings, disposition and treatment plan as described except to the extent set forth below. Ms Mitchell is currently admitted for perforated diverticulum and MRSA bacteremia. She remains high risk due to potential for worsening clinical status. Ms Mitchell is feeling a little better today. She is having a lot of nausea. no fever. WBC normal. Exam alert. Comfortable Mucus membranes dry Heart reg Lungs diminished I/P 1. MRSA bacteremia 2. Hypoxia Further diagnoses and plan as above.
[2017-06-12] MEDS: *HR* Promethazine 25 MG/ML VIAL IVP PRN ×2 (00:17→20:24)
[2017-06-12] MEDS: Insulin LISPRO 300 UNITS/3 ML VIAL SQ SCH ×7 (00:17→23:57)
[2017-06-12] MEDS: MetroNIDAZOLE 500 MG/100 ML 500 MG/100 ML BAG IVPB SCH ×3 (01:25→16:53)
[2017-06-12] MEDS: Vancomycin 1,250 MG in D5% in Water 250 ML IVPB SCH (01:26)
[2017-06-12 03:39] LABS: Hematocrit 27.4 % (35.3-44.9); Hemoglobin 8.8 g/dL (11.5-15.4); Lymphocytes # 1.3 K/mcL (0.6-4.6); Mean Corpuscular HGB Conc 32.1 g/dL (31.6-35.5); Mean Corpuscular Hemoglobin 29.8 pg (28.0-33.3); Mean Corpuscular Volume 92.9 fL (83.0-100.0); Platelet Count 419 K/mcL (140-400); Red Blood Count 2.95 M/mcL (3.82-4.97); Red Cell Distribution Width 14.2 % (11.5-14.5)
[2017-06-12] MEDS: Albuterol 2.5 MG/3 ML NEBULIZER IH SCH ×6 (03:43→23:51)
[2017-06-12 04:14] LABS: BUN/Creatinine Ratio 27 (6-26); Blood Urea Nitrogen 26 mg/dL (8-23); Calcium 8.3 mg/dL (8.6-10.3); Carbon Dioxide 28 mEq/L (23-29); Chloride 99 mEq/L (98-107); Glucose 193 mg/dL (70-105); Osmolality,Calculated 286 (280-300); Potassium 3.8 mEq/L (3.5-5.1); Sodium 133 mEq/L (136-145); eGFR For African Americans > 60 (> 60); eGFR For Non-African Americans 57 (> 60)
[2017-06-12 05:48] LABS: Eosinophils # 0.5 K/mcL (0.0-0.6); Monocytes # 1.3 K/mcL (0.0-1.3); Neutrophils # 9.9 K/mcL (1.6-8.9); Platelet Estimate Normal (Normal)
[2017-06-12] MEDS: Vancomycin 1,000 MG in D5% in Water 250 ML IVPB SCH ×2 (05:53→18:09)
--- NOTE | 2017-06-12 08:28 | Internal Med Progress Note ---
<Tyson Jensen - Last Filed: 06/12/17 14:36> Date of Encounter: 06/12/17 Time of Encounter: 08:16 - Assessment and plan (1) Perforated diverticulum Current Visit: Yes Status: Acute Assessment and plan: ABD CT with multiple left sided colon and sigmoid diverticula with wall thickening and extraluminal gas/pneumoperitoneum consistent with acute perforated diverticulitis. Repeat abdominal CT on 06/02/17 showing 1.17 cm x 3.9 cm x 2.7 cm abscess inferior to the proximal sigmoid colon, increased inflammation of the mesentery, new minimal right hydronephrosis suggestive of uriritis. CT on 06/11/17 demonstrating decreased pneumoperitoneum, multiloculated fluid collection scattered throughout the albumin and pelvis which appeared to have increased in size, fluid collections along the incision line. Surgeon aware of findings - POD #8 s/p sigmoid colectomy with stapled colocolonic anastomosis - febrile last night, currently stable. new leukocytosis WBC 13.0 - Pain better controlled with CABINET BUILDER dilaudid - Phenergren and Zofran PRN nausea - Continue TPN - Diet advancement per surgery Plan - Changed ABx to cefepime, vanc day #4 - continue flagyl, vanc. Started Micafungin - Continue dilaudid CABINET BUILDER - General surgery following. Continue ICU care - Continue TPN, NPO. - possibly drainage of abscess or surgery intervention (2) MRSA bacteremia Current Visit: Yes Status: Acute Assessment and plan: - Blood cultures positive for MRSA bacteremia - Suspected source is PICC line vs central venous line - ID consulted, appreciate recommendations - TTE ordered, pending. - Repeat blood cultures drawn this AM, 2 peripheral, 1 central line, 1 PICC line. - PICC line removed and tip sent for culture - Tachycardic at 100, tachypnic at 20, afebrile. WBC wnl - Has been on Vancomycine, cefepime, day #5 - Urine culture was negative for growth. - ID as suspicion of endocarditis, meets one major and one minor Herrera criteria. Requesting EMILIE. TTE shows ejection fraction of 65-70% with mild tricuspid regurgitation, no vegetations noted - echo LVEF 65-70%; mild LV diastolic dysfunction Plan - Continue vancomycin and cefepime, day 5 - Follow repeat cultures - Per ID, will remove PICC line and keep central line for TPN - Consider replacing central line once bacteremia clears. (3) Diverticulitis Current Visit: Yes Status: Acute Assessment and plan: as above (4) DVT prophylaxis Current Visit: Yes Status: Acute Assessment and plan: Start SCDs (5) HTN (hypertension) Current Visit: Yes Status: Acute Assessment and plan: - BP well controlled at this visit. Most recent of 106/53 this morning - Holding home BP meds due to NPO status Plan - Continue hydralazine IV PRN hypertension - Monitor given high amount of pain medications Qualifiers: Hypertension type: essential hypertension Qualified Code(s): I10 - Essential (primary) hypertension (6) Hypothyroidism Current Visit: Yes Status: Acute Assessment and plan: Continue IV levothyroxine while nothing by mouth Qualifiers: Hypothyroidism type: acquired Qualified Code(s): E03.9 - Hypothyroidism, unspecified (7) Hypoxia Current Visit: Yes Status: Acute Assessment and plan: - Oxygen saturation down to 84% on room air on admission. - Morbid obesity likely playing a role however she is on CABINET BUILDER pump and at risk for hypoventilation syndrome vs pain induced hypoventilation - Currently tolerating 96% on 2L - No reported underlying lung disease. - Likey secondary to atelectasis possible component of pulmonary edema Plan - Supplemental O2 as necessary. Aggressive IS. - Will continue to monitor and attempt to wean. -Also encouraged to seated position as pain allows to prevent atelectasis - will Continue monitoring renal function at this time (8) Morbid obesity with BMI of 45.0-49.9, adult Current Visit: Yes Status: Chronic Assessment and plan: BMI 46, weight 131kg. lifestyle modifications encouraged as outpatient (9) Sepsis Current Visit: Yes Status: Acute Assessment and plan: - As above for MRSA bacteremia - AFebrile, tachycardic, tachypnic. Qualifiers: Sepsis type: methicillin resistant Staphylococcus aureus Qualified Code(s) : A41.02 - Sepsis due to Methicillin resistant Staphylococcus aureus (10) Cystitis Current Visit: Yes Status: Acute Assessment and plan: - ABD CT with thickening of bladder wall and questionable incomplete distention versus cystitis with mild hydronephrosis - Continue vanc - Urology to place ureteral stent during surgery. Should follow up with urology as outpatient for stent removal. - Following, appreciate recs - Will monitor harry output, hydrate, monitor kidney function. - Subjective Interval history: Ms Mitchell is 61 yo F here for possible MRSA bacteremia and s/p perforated diverticulum. Patient temperature went to 102.4 overnight which did not respond to tylenol, but did respond to cooling room and cold blankets. Patient denies abdominal pain, headache, discomfort or pain. - Constitutional Vitals: Temp Pulse Resp BP Pulse Ox 99.3 F 105 26 119/61 96 06/12/17 07:40 06/12/17 06:00 06/12/17 06:00 06/12/17 06:00 06/12/17 06:00 General appearance: Present: A&O X 3, morbidly obese, pleasant, no acute distress, answers questions appropriately - Respiratory Respiratory exam: Present: CTAB. Absent: accessory muscle use, rales, rhonchi, wheezes - Cardiovascular Cardiovascular exam: Present: RRR - GI/Abdominal GI/Abdominal exam: Present: diminished bowel sounds, hypoactive bowel sounds, soft. Absent: bruit, firm, guarding, mass, normal bowel sounds, rebound, rigid , tenderness Additional comments: subumbilical midline incision intact, clean and dry. - Extremities Exam Extremities exam: Present: pedal edema (bilateral pedal edema 3+), radial pulses palpable and symmetrical. Absent: tenderness - Incison Incision: Present: clean and dry, intact - Psychiatric Psychiatric exam: Present: normal affect, normal mood Internal Medicine: Result - Labs CBC & Chem 7: 06/12/17 03:29 06/12/17 03:29 Labs: Short CBC 06/12/17 Range/Units 03:29 WBC 13.0 H (4.3-11.1) K/mcL Hgb 8.8 L (11.5-15.4) g/dL Hct 27.4 L (35.3-44.9) % Plt Count 419 H (140-400) K/mcL Neutrophils # 9.9 H (1.6-8.9) K/mcL BMP 06/12/17 03:29 Sodium 133 L Potassium 3.8 Chloride 99 Carbon Dioxide 28 BUN 26 H Creatinine 0.98 Glucose 193 H Calcium 8.3 L - ABG Interpretation ABG results: ABG ABG pH 7.43 pH Units (7.32-7.45) 06/08/17 04:24 ABG pCO2 35 mmHg (35-45) 06/08/17 04:24 ABG pO2 72 mmHg (85-104) L 06/08/17 04:24 ABG O2 Saturation 95 % (95-98) 06/08/17 04:24 PT/INR, D-dimer PT 13.8 Seconds (9.4-12.1) H 05/30/17 06:42 - Impressions Impressions Echocardiogram 06/10/17 14:33 Impressions: Sinus tachycardia. LVEF 65-70%. Mild left ventricular diastolic dysfunction. Normal right ventricular structure and function. Mild tricuspid regurgitation. Probably mild hypertension, TR gradient 34 mmHg. IVC is not well visualized. Valvular vegetations are not appreciated on this study. Left Ventricular Wall Motion: Rest Echo Findings All wall segments showed normal motion. Findings: Study Quality * Technically adequate exam. ECG Findings * Sinus tachycardia. Left Ventricle * LVEF 65-70%. * Normal LV size and wall thickness. * Mild left ventricular diastolic dysfunction. Right Ventricle * Normal right ventricular structure and function. Left Atrium * Mildly dilated left atrium. Right Atrium * Normal right atrial size. Aortic Valve * No aortic regurgitation. * Trileaflet aortic valve. * No aortic stenosis. Mitral Valve * Normal mitral valve structure. * No mitral regurgitation. * No mitral stenosis. Tricuspid Valve * Tricuspid valve not well visualized. * Mild tricuspid regurgitation. Pulmonic Valve * Pulmonic valve is not well visualized. * No pulmonic stenosis. * No pulmonic regurgitation. Pulmonary Artery * Pulmonary artery not well visualized. Interatrial Septum * Interatrial septum not well evaluated. Abdomen/Pelvis CT 06/11/17 16:00 IMPRESSION: Overall decreased (but persistent) pneumoperitoneum. Multiloculated fluid collection scattered throughout the abdomen and pelvis, however, have for the most part increased in size and demonstrate new thin peripheral enhancement suggesting organization/abscess formation. Oral contrast reaches the mid bowel at the time of imaging. No evidence of contrast extravasation. Unchanged appearance of the sigmoid colonic anastomosis. Fluid collections along the abdominal incision have increase in size, largest along the infraumbilical incision line. Features of increasing volume/fluid status, including progressive soft tissue anasarca, mesenteric edema and mild increase in size of small bilateral effusions. The findings were sent to the Radiology Results Communication [facility] at 5:01 pm on 06/11/2017to be communicated to a licensed caregiver. D/ / 06/11/2017 17:05:52 Alpesh Hammond / Edilma Tesfaye Interpreting Provider: Alpesh Hammond - VTE Documentation of Mechanical Device: Intermittent pneumatic compression device Consult Discharge Plan - Plan Referrals: Kole Barksdale MD [Primary Care Provider] - 06/08/17 9:45 am <John Browne - Last Filed: 06/12/17 17:52> Date of Encounter: 06/12/17 - Assessment and plan (1) Acute respiratory failure with hypoxia Current Visit: Yes Status: Acute (2) MRSA (methicillin resistant Staphylococcus aureus) infection Current Visit: Yes Status: Acute (3) MRSA bacteremia Current Visit: Yes Status: Acute (4) Diverticulitis large intestine Current Visit: Yes Status: Acute Qualifiers: Diverticulitis bleeding: without bleeding Diverticulitis complication: with perforation and abscess Qualified Code(s): K57.20 - Diverticulitis of large intestine with perforation and abscess without bleeding (5) Hyperglycemia Current Visit: Yes Status: Resolved (6) HTN (hypertension) Current Visit: Yes Status: Acute Qualifiers: Hypertension type: essential hypertension Qualified Code(s): I10 - Essential (primary) hypertension (7) Hypothyroidism Current Visit: Yes Status: Acute Qualifiers: Hypothyroidism type: acquired Qualified Code(s): E03.9 - Hypothyroidism, unspecified (8) Morbid obesity with BMI of 45.0-49.9, adult Current Visit: Yes Status: Chronic (9) History of open sigmoidectomy Current Visit: Yes Status: Chronic - Constitutional Vitals: Temp Pulse Resp BP Pulse Ox 98.7 F 98 17 122/72 98 06/12/17 15:42 06/12/17 17:08 06/12/17 17:08 06/12/17 17:08 06/12/17 17:08 Internal Medicine: Result - Labs CBC & Chem 7: 06/12/17 03:29 06/12/17 03:29 Labs: Short CBC 06/12/17 Range/Units 03:29 WBC 13.0 H (4.3-11.1) K/mcL Hgb 8.8 L (11.5-15.4) g/dL Hct 27.4 L (35.3-44.9) % Plt Count 419 H (140-400) K/mcL Neutrophils # 9.9 H (1.6-8.9) K/mcL BMP 06/12/17 03:29 Sodium 133 L Potassium 3.8 Chloride 99 Carbon Dioxide 28 BUN 26 H Creatinine 0.98 Glucose 193 H Calcium 8.3 L - ABG Interpretation ABG results: ABG ABG pH 7.43 pH Units (7.32-7.45) 06/08/17 04:24 ABG pCO2 35 mmHg (35-45) 06/08/17 04:24 ABG pO2 72 mmHg (85-104) L 06/08/17 04:24 ABG O2 Saturation 95 % (95-98) 06/08/17 04:24 PT/INR, D-dimer PT 13.8 Seconds (9.4-12.1) H 05/30/17 06:42 - Impressions Impressions Abdomen/Pelvis CT 06/11/17 16:00 IMPRESSION: Overall decreased (but persistent) pneumoperitoneum. Multiloculated fluid collection scattered throughout the abdomen and pelvis, however, have for the most part increased in size and demonstrate new thin peripheral enhancement suggesting organization/abscess formation. Oral contrast reaches the mid bowel at the time of imaging. No evidence of contrast extravasation. Unchanged appearance of the sigmoid colonic anastomosis. Fluid collections along the abdominal incision have increase in size, largest along the infraumbilical incision line. Features of increasing volume/fluid status, including progressive soft tissue anasarca, mesenteric edema and mild increase in size of small bilateral effusions. The findings were sent to the Radiology Results Communication Center at 5:01 pm on 06/11/2017to be communicated to a licensed caregiver. D/ / 06/11/2017 17:05:52 Alpesh Hammond / Edilma Tesfaye Interpreting Provider: Alpesh Hammond - Attending Attestation I examined this patient and my medical decision-making was reviewed with the Resident Physician on 06/12/17. I agree with the documented findings, disposition and treatment plan as described except to the extent set forth below. Ms Mitchell is currently admitted for perf diverticulum with abscess s/p resection and MRSA bacteremia. She remains moderate to high risk due to potential for worsening clinical status. Ms Mitchell was up to chair. She is still having pain and fevers. Nausea a little better today. Made NPO today for probable surgery tomorrow. Exam alert. Comfortable at this time Mucus membranes dry Heart reg - not tachy Lungs diminished and no wheeze today Edema present I/P 1. Perf diverticulum 2. MRSA bacteremia 3. Micafungin ordered today 4. Venous duplex all extremities to r/o DVT as cause of fever. Further diagnoses and plan as above.
--- NOTE | 2017-06-12 08:56 | General Surgery Progress Note ---
Date of Encounter: 06/12/17 Time of Encounter: 08:00 Subjective Narrative: General Surgery - POD #8 Patient complaining of increased nausea; no emesis; febrile last evening to 102.4; currently afebrile. Current respiratory rate 26, range 18-30; Heart rate currently 98 but 105-110 through the night; blood pressure 128/ 64 Lungs: Clear bilaterally; patient complaining of pain predominantly right subcostal on deep inspiration Abdomen: Tenderness appears to be localized to the right upper quadrant. Midline incision remains clean and dry. Urine output 6700 mL for the last 24 hours; furosemide 40 mg IV administered ; urine output so far today 800 mL Labs: White count increased 13.0, hemoglobin 8.8 with hematocrit 27.4; band neutrophils 8%; neutrophils 8.9% Electrolytes essentially stable; sodium 133, potassium 3.8,; BUN has increased to 26, creatinine 0.98.; eGFR has improved to 57 Impression: Postoperative day #8, status post exploratory celiotomy with sigmoid colectomy and stapled colocolonic anastomosis for acute perforated sigmoid diverticulitis Increasing fever, leukocytosis and neutrophilia. CT findings noted. Patient complaining of increased nausea. This has resulted in diminished oral intake. It will be necessary to continue TPN Check urine cultures. Continue aggressive IV antibiotic therapy. Objective Vital Signs - Last 8 Hours Temp Pulse Resp BP Pulse Ox 06/12/17 07:56 16 97 06/12/17 07:40 99.3 F 06/12/17 06:00 105 26 119/61 96 06/12/17 05:30 103 24 105/58 96 06/12/17 05:05 100.1 F H 06/12/17 04:00 110 26 121/57 97 06/12/17 03:46 18 97 06/12/17 03:30 107 30 128/64 98 06/12/17 03:08 102.4 F H 06/12/17 02:00 105 25 121/46 97 06/12/17 01:30 109 25 139/66 99 Intake and Output 06/11/17 06/12/17 06/12/17 23:59 07:59 15:59 Intake Total 2495 / 2495 100 / 100 Output Total 5550 / 5550 800 / 800 Balance -3055 / -3055 -700 / -700 Intake: IV Fluids 495 / 495 100 / 100 0.9 % Sodium Chloride 1,000 ML 125 / 125 @ 25 mls/hr IVC .Q24H [facility] Rx#: [id number] Maxipime 2,000 MG In Water for 20 / 20 inj. (sterile) 20 ML @ 300 mls/ hr IVP Q12H [facility] Rx#:[id number] Flagyl Premix 500 MG/100 ML 500 100 / 100 100 / 100 mg In 100 ml @ 100 mls/hr IVPB Q8H [facility] Rx#:[id number] Vancocin 1,250 MG In Dextrose 5 250 / 250 % 250 ML @ 166.667 mls/hr IVPB Q12H [facility] Rx#:[id number] Other 1999 Output: Catheter 5550 / 5550 800 / 800 Other: Weight 135.8 kg Blood Glucose* 175 249 Patient Weight 06/12/17 23:59 Weight 135.8 kg - Labs 06/12/17 03:29 06/12/17 03:29 Diabetes panel 06/12/17 Range/Units 03:29 Sodium 133 L (136-145) mEq/L Potassium 3.8 (3.5-5.1) mEq/L Chloride 99 (98-107) mEq/L Carbon Dioxide 28 (23-29) mEq/L BUN 26 H (8-23) mg/dL Creatinine 0.98 (0.60-1.20) mg/dL Glucose 193 H (70-105) mg/dL Calcium 8.3 L (8.6-10.3) mg/dL Calcium panel 06/12/17 Range/Units 03:29 Calcium 8.3 L (8.6-10.3) mg/dL Pituitary panel 06/12/17 Range/Units 03:29 Sodium 133 L (136-145) mEq/L Potassium 3.8 (3.5-5.1) mEq/L Chloride 99 (98-107) mEq/L Carbon Dioxide 28 (23-29) mEq/L BUN 26 H (8-23) mg/dL Creatinine 0.98 (0.60-1.20) mg/dL Glucose 193 H (70-105) mg/dL Calcium 8.3 L (8.6-10.3) mg/dL Adrenal panel 06/12/17 Range/Units 03:29 Sodium 133 L (136-145) mEq/L Potassium 3.8 (3.5-5.1) mEq/L Chloride 99 (98-107) mEq/L Carbon Dioxide 28 (23-29) mEq/L BUN 26 H (8-23) mg/dL Creatinine 0.98 (0.60-1.20) mg/dL Glucose 193 H (70-105) mg/dL Calcium 8.3 L (8.6-10.3) mg/dL - VTE Documentation of Mechanical Device: Intermittent pneumatic compression device Consult Discharge Plan - Plan Referrals: Kole Barksdale MD [Primary Care Provider] - 06/08/17 9:45 am
[2017-06-12] MEDS: Cefepime HCl 2,000 MG in Water for inj. (sterile) 20 ML 20 ML IVP SCH ×2 (09:28→20:23)
[2017-06-12] MEDS: Nystatin SUSP 5 ML UD.LIQ PO SCH ×4 (09:29→20:24)
[2017-06-12] MEDS: Pantoprazole 40 MG VIAL IVP SCH (09:29)
[2017-06-12] MEDS: *HR* HYDROmorphone 20 MG/20 ML PCA IVC PRN (10:02)
[2017-06-12] MEDS: Insulin DETEMIR 100 UNIT/ML X5UNITS SQ SCH (10:43)
[2017-06-12] MEDS: 0.9 % Sodium Chloride 1,000 ML IVC SCH (10:45)
[2017-06-12] MEDS: Micafungin 100 MG in 0.9 % Sodium Chloride Mini Bag 100 ML IVPB SCH (11:34)
[2017-06-12] MEDS: *HR* LORazepam 2 MG/ML VIAL IVP PRN ×2 (11:47→23:56)
[2017-06-12] MEDS ORDERED: Clinimix E 5%-15% SOLUTION 2,000 ML with MVI, adult with vitamin K 10 ML IVC SCH (17:00)
[2017-06-13] MEDS: MetroNIDAZOLE 500 MG/100 ML 500 MG/100 ML BAG IVPB SCH ×3 (03:00→16:58)
[2017-06-13] MEDS: Albuterol 2.5 MG/3 ML NEBULIZER IH SCH ×6 (03:45→23:03)
[2017-06-13] MEDS: Vancomycin 1,000 MG in D5% in Water 250 ML IVPB SCH ×2 (04:55→17:07)
[2017-06-13] MEDS: *HR* Promethazine 25 MG/ML VIAL IVP PRN ×3 (04:55→23:50)
[2017-06-13 05:05] LABS: Hematocrit 25.5 % (35.3-44.9); Hemoglobin 8.2 g/dL (11.5-15.4); Mean Corpuscular HGB Conc 32.2 g/dL (31.6-35.5); Mean Corpuscular Volume 93.4 fL (83.0-100.0); Mean Platelet Volume 9.1 fL (9.4-12.4); Platelet Count 492 K/mcL (140-400); Red Blood Count 2.73 M/mcL (3.82-4.97); Red Cell Distribution Width 14.2 % (11.5-14.5)
[2017-06-13] MEDS: Insulin LISPRO 300 UNITS/3 ML VIAL SQ SCH ×5 (05:09→21:30)
[2017-06-13 05:50] LABS: Lymphocytes # 2.7 K/mcL (0.6-4.6); Monocytes # 0.9 K/mcL (0.0-1.3); Neutrophils # 11.3 K/mcL (1.6-8.9); Platelet Estimate Increased (Normal)
[2017-06-13 06:32] LABS: Alanine Aminotransferase 7 Units/L (7-52); Albumin 2.4 g/dL (3.5-5.7); Albumin/Globulin Ratio 0.7 (1.1-2.2); Alkaline Phosphatase 50 Units/L (34-104); Aspartate Amino Transferase 17 Units/L (13-39); BUN/Creatinine Ratio 28 (6-26); Bilirubin,Total 0.4 mg/dL (0.3-1.0); Blood Urea Nitrogen 25 mg/dL (8-23); Calcium 8.2 mg/dL (8.6-10.3); Carbon Dioxide 27 mEq/L (23-29); Chloride 99 mEq/L (98-107); Globulin 3.6 g/dL (2.4-3.5); Glucose 181 mg/dL (70-105); Osmolality,Calculated 283 (280-300); Potassium 3.6 mEq/L (3.5-5.1); Sodium 132 mEq/L (136-145); eGFR For African Americans > 60 (> 60); eGFR For Non-African Americans > 60 (> 60)
[2017-06-13] MEDS: Pantoprazole 40 MG VIAL IVP SCH (08:11)
[2017-06-13] MEDS: Nystatin SUSP 5 ML UD.LIQ PO SCH ×4 (08:46→21:30)
[2017-06-13] MEDS: Cefepime HCl 2,000 MG in Water for inj. (sterile) 20 ML 20 ML IVP SCH ×2 (08:48→21:29)
[2017-06-13] MEDS: Micafungin 100 MG in 0.9 % Sodium Chloride Mini Bag 100 ML IVPB SCH (09:54)
[2017-06-13] MEDS: Insulin DETEMIR 100 UNIT/ML X5UNITS SQ SCH ×2 (09:54→16:58)
--- NOTE | 2017-06-13 10:34 | General Surgery Progress Note ---
Date of Encounter: 06/13/17 Time of Encounter: 10:15 Subjective Patient reports: feels better, pain is less Narrative: General Surgery - POD #9 patient feeling better; nausea and pain diminished patient without fever for the last 24 hours; currently 98.4, pulse 98, intermittent tachycardia as high as 117; respiratory rate 13-20; blood pressure 125/63. SPO2 on 2 L/m nasal cannula 96% Lungs: Clear; no pain on deep inspiration Cardiac: At present time regular rate with no appreciable murmur; episodic tachycardia noted through the night Abdomen: Soft; less tenderness to palpation in the right upper quadrant and the remainder of the abdomen. Active bowel sounds; patient passing flatus. Midline incision remains clean and dry with no obvious drainage. Urine output: 2100 mL for the last 24 hours; 600 mL so far today Repeat blood cultures - final results still pending but preliminary results showing no growth urine culture pending Labs: White count continues to increase 14.8; hemoglobin 8.2 with hematocrit 25.5. Platelet count 492,000 BAnd neutrophils has increased to 28%; neutrophils increased to 11.3% Electrolytes notable for sodium of 132; BUN 25 creatinine 0.88; eGFR >60 Total bilirubin 0.4, AST 17, ALT 7, alkaline phosphatase 50; total protein 6.0, albumin 2.4 Impression: Postoperative day 9, status post exploratory celiotomy with sigmoid colectomy and stapled colocolonic anastomosis Patient feeling better though white count continues to increase with increased band neutrophils and neutrophilia Plan: Maintain NPO, TPN will be increased to meet caloric and protein needs Continue Vancomycin, Cefipime, Metronidazole Maintain harry for this critically ill patient Anemia - stable Objective Vital Signs - Last 8 Hours Temp Pulse Resp BP Pulse Ox 06/13/17 08:49 98 13 125/63 96 06/13/17 08:03 16 95 06/13/17 07:36 98.4 F 06/13/17 06:00 95 20 119/53 96 06/13/17 05:00 98 18 130/77 94 06/13/17 04:00 101 25 134/79 95 06/13/17 03:31 98.9 F 06/13/17 03:00 101 24 138/64 96 06/13/17 02:30 105 22 133/61 96 Intake and Output 06/12/17 06/13/17 06/13/17 23:59 07:59 15:59 Intake Total 370 / 370 600 / 600 Output Total 700 / 700 600 / 600 Balance -330 / -330 0 / 0 Intake: IV Fluids 370 / 370 600 / 600 Maxipime 2,000 MG In Water for 20 / 20 inj. (sterile) 20 ML @ 300 mls/ hr IVP Q12H [facility] Rx#:[id number] Intralipid 20% 250 ML @ 21 mls/ 250 / 250 hr IVPB DAILY@1700 [facility] Rx#: [id number] Flagyl Premix 500 MG/100 ML 500 100 / 100 100 / 100 mg In 100 ml @ 100 mls/hr IVPB Q8H [facility] Rx#:[id number] Vancocin 1,000 MG In Dextrose 5 250 / 250 250 / 250 % 250 ML @ 166.667 mls/hr IVPB Q12H [facility] Rx#:[id number] Output: Catheter 700 / 700 600 / 600 Other: Weight 138.2 kg Blood Glucose* 154 159 Patient Weight 06/13/17 23:59 Weight 138.2 kg - Labs 06/13/17 04:00 06/13/17 04:36 Diabetes panel 06/13/17 Range/Units 04:36 Sodium 132 L (136-145) mEq/L Potassium 3.6 (3.5-5.1) mEq/L Chloride 99 (98-107) mEq/L Carbon Dioxide 27 (23-29) mEq/L BUN 25 H (8-23) mg/dL Creatinine 0.88 (0.60-1.20) mg/dL Glucose 181 H (70-105) mg/dL Calcium 8.2 L (8.6-10.3) mg/dL AST 17 (13-39) Units/L ALT 7 (7-52) Units/L Alkaline Phosphatase 50 (34-104) Units/L Albumin 2.4 L (3.5-5.7) g/dL Calcium panel 06/13/17 Range/Units 04:36 Calcium 8.2 L (8.6-10.3) mg/dL Albumin 2.4 L (3.5-5.7) g/dL Pituitary panel 06/13/17 Range/Units 04:36 Sodium 132 L (136-145) mEq/L Potassium 3.6 (3.5-5.1) mEq/L Chloride 99 (98-107) mEq/L Carbon Dioxide 27 (23-29) mEq/L BUN 25 H (8-23) mg/dL Creatinine 0.88 (0.60-1.20) mg/dL Glucose 181 H (70-105) mg/dL Calcium 8.2 L (8.6-10.3) mg/dL Adrenal panel 06/13/17 Range/Units 04:36 Sodium 132 L (136-145) mEq/L Potassium 3.6 (3.5-5.1) mEq/L Chloride 99 (98-107) mEq/L Carbon Dioxide 27 (23-29) mEq/L BUN 25 H (8-23) mg/dL Creatinine 0.88 (0.60-1.20) mg/dL Glucose 181 H (70-105) mg/dL Calcium 8.2 L (8.6-10.3) mg/dL Total Bilirubin 0.4 (0.3-1.0) mg/dL AST 17 (13-39) Units/L ALT 7 (7-52) Units/L Alkaline Phosphatase 50 (34-104) Units/L Albumin 2.4 L (3.5-5.7) g/dL - VTE Documentation of Mechanical Device: Venous foot pump, device Consult Discharge Plan - Plan Referrals: Kole Barksdale MD [Primary Care Provider] - 06/08/17 9:45 am
--- NOTE | 2017-06-13 12:12 | Internal Med Progress Note ---
Date of Encounter: 06/13/17 Time of Encounter: 09:00 - Assessment and plan (1) Acute respiratory failure with hypoxia Current Visit: Yes Status: Acute Assessment and plan: Remains on supplemental oxygen. Continue IS and up to chair. Will wean as able. (2) MRSA (methicillin resistant Staphylococcus aureus) infection Current Visit: Yes Status: Acute Assessment and plan: Remains on IV Vancomycin. Repeat blood cultures have been negative. Further plan per ID tomorrow. (3) MRSA bacteremia Current Visit: Yes Status: Acute Assessment and plan: - Blood cultures positive for MRSA bacteremia - Suspected source is PICC line vs central venous line - ID consulted, appreciate recommendations - Repeat blood cultures drawn remain negative - PICC line removed and tip sent for culture - Has been on Vancomycine, cefepime, day #6 - Urine culture was negative for growth. - ID as suspicion of endocarditis, meets one major and one minor Herrera criteria. Requesting EMILIE. TTE shows ejection fraction of 65-70% with mild tricuspid regurgitation, no vegetations noted - echo LVEF 65-70%; mild LV diastolic dysfunction Plan - Continue vancomycin and cefepime, day 6 - Repeat cultures have been negative thus far. - Continue current abx treatment (4) Diverticulitis large intestine Current Visit: Yes Status: Acute Assessment and plan: s/p resection WBC elevated today with increased bands Micafungin added yesterday. Repeat labs in AM Qualifiers: Diverticulitis bleeding: without bleeding Diverticulitis complication: with perforation and abscess Qualified Code(s): K57.20 - Diverticulitis of large intestine with perforation and abscess without bleeding (5) HTN (hypertension) Current Visit: Yes Status: Acute Assessment and plan: - BP well controlled at this visit. - Holding home BP meds due to NPO status Plan - Continue hydralazine IV PRN hypertension Qualifiers: Hypertension type: essential hypertension Qualified Code(s): I10 - Essential (primary) hypertension (6) Hypothyroidism Current Visit: Yes Status: Acute Assessment and plan: Continue IV levothyroxine while nothing by mouth Qualifiers: Hypothyroidism type: acquired Qualified Code(s): E03.9 - Hypothyroidism, unspecified (7) Morbid obesity with BMI of 45.0-49.9, adult Current Visit: Yes Status: Chronic Assessment and plan: Weight increasing. Most likely fluid related. (8) History of open sigmoidectomy Current Visit: Yes Status: Chronic - Subjective Interval history: Ms Mitchell is currently admitted for acute perforated diverticulum with abscess s/p resection. She remains moderate to high risk due to potential for worsening clinical status. 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 Ms Mitchell feels OK. No fever overnight. Still with some dyspnea. Pain is OK at this time. Nausea appears to be somewhat better as well. Remains NPO at this time. - Constitutional Vitals: Temp Pulse Resp BP Pulse Ox 98.4 F 98 16 125/63 98 06/13/17 07:36 06/13/17 08:49 06/13/17 11:28 06/13/17 08:49 06/13/17 11:28 General appearance: Present: A&O X 3, pleasant, answers questions appropriately - Head Head exam: Present: atraumatic, normocephalic - Eye Eye exam: Present: EOMI, conjuntiva pink - ENT ENT exam: Present: mucous membranes dry - Respiratory Respiratory exam: Present: decreased breath sounds, CTAB (Anteriorly and laterally) - Cardiovascular Cardiovascular exam: Present: RRR. Absent: tachycardia - GI/Abdominal GI/Abdominal exam: Present: soft - Extremities Exam Extremities exam: Present: pedal edema, warm. Absent: tenderness - Neurological Exam Neurological exam: Present: alert, oriented X3 - Skin Skin exam: Present: dry, warm. Absent: rash Internal Medicine: Result - Labs CBC & Chem 7: 06/13/17 04:00 06/13/17 04:36 Labs: Short CBC 06/13/17 Range/Units 04:00 WBC 14.8 H (4.3-11.1) K/mcL Hgb 8.2 L (11.5-15.4) g/dL Hct 25.5 L (35.3-44.9) % Plt Count 492 H (140-400) K/mcL Neutrophils # 11.3 H (1.6-8.9) K/mcL BMP 06/13/17 04:36 Sodium 132 L Potassium 3.6 Chloride 99 Carbon Dioxide 27 BUN 25 H Creatinine 0.88 Glucose 181 H Calcium 8.2 L Liver Function 06/13/17 Range/Units 04:36 Total Bilirubin 0.4 (0.3-1.0) mg/dL AST 17 (13-39) Units/L ALT 7 (7-52) Units/L Alkaline Phosphatase 50 (34-104) Units/L Albumin 2.4 L (3.5-5.7) g/dL - ABG Interpretation ABG results: ABG ABG pH 7.43 pH Units (7.32-7.45) 06/08/17 04:24 ABG pCO2 35 mmHg (35-45) 06/08/17 04:24 ABG pO2 72 mmHg (85-104) L 06/08/17 04:24 ABG O2 Saturation 95 % (95-98) 06/08/17 04:24 PT/INR, D-dimer PT 13.8 Seconds (9.4-12.1) H 05/30/17 06:42 - VTE Documentation of Mechanical Device: Venous foot pump, device Consult Discharge Plan - Plan Referrals: Kole Barksdale MD [Primary Care Provider] - 06/08/17 9:45 am
[2017-06-13] MEDS: 0.9 % Sodium Chloride 1,000 ML IVC SCH (12:35)
[2017-06-13] MEDS ORDERED: Furosemide 40 MG/4 ML VIAL IVP ONE (13:28)
[2017-06-13] MEDS: *HR* LORazepam 2 MG/ML VIAL IVP PRN ×2 (13:45→22:17)
[2017-06-13] MEDS: Levothyroxine Sodium 100 MCG VIAL IVP SCH (14:06)
[2017-06-13] MEDS ORDERED: Clinimix E 5%-15% SOLUTION 2,000 ML with MVI, adult with vitamin K 10 ML IVC SCH (17:00)
[2017-06-13] MEDS ORDERED: Clinimix E 5%-15% SOLUTION 2,000 ML, Parenteral Amino Acid 10% 200 ML with MVI, adult ... IVC SCH (17:00)
[2017-06-13] MEDS: Potassium Chloride 40 MEQ/200 ML BAG IVPB PRN ×2 (21:31→22:41)
[2017-06-13] MEDS: *HR* HYDROmorphone 20 MG/20 ML PCA IVC PRN (22:12)
[2017-06-14] MEDS: Insulin LISPRO 300 UNITS/3 ML VIAL SQ SCH ×7 (00:31→23:39)
[2017-06-14] MEDS: MetroNIDAZOLE 500 MG/100 ML 500 MG/100 ML BAG IVPB SCH ×4 (00:34→23:41)
[2017-06-14] MEDS: Albuterol 2.5 MG/3 ML NEBULIZER IH SCH ×5 (03:38→22:08)
[2017-06-14] MEDS: *HR* LORazepam 2 MG/ML VIAL IVP PRN ×2 (05:15→18:30)
[2017-06-14 05:17] LABS: Basophils # 0.1 K/mcL (0.0-0.2); Basophils % 0.7 %; Eosinophils # 0.3 K/mcL (0.0-0.6); Eosinophils % 1.8 %; Hematocrit 27.8 % (35.3-44.9); Hemoglobin 8.8 g/dL (11.5-15.4); Immature Granulocytes % 5.5 % (0-4); Lymphocytes # 2.1 K/mcL (0.6-4.6); Lymphocytes % 12.9 %; Mean Corpuscular HGB Conc 31.7 g/dL (31.6-35.5); Mean Corpuscular Volume 94.9 fL (83.0-100.0); Mean Platelet Volume 9.2 fL (9.4-12.4); Monocytes # 1.5 K/mcL (0.0-1.3); Monocytes % 9.4 %; Neutrophils # 11.2 K/mcL (1.6-8.9); Nucleated Red Blood Cells 0.1 /100 WBC (0); Platelet Count 450 K/mcL (140-400); Red Blood Count 2.93 M/mcL (3.82-4.97); Red Cell Distribution Width 14.3 % (11.5-14.5); Segmented Neutrophils % 69.7 %
[2017-06-14] MEDS: Vancomycin 1,000 MG in D5% in Water 250 ML IVPB SCH ×2 (05:44→18:17)
[2017-06-14 07:51] LABS: Platelet Estimate Normal (Normal); Reactive Lymphocytes Present (Not Present)
[2017-06-14] MEDS: Cefepime HCl 2,000 MG in Water for inj. (sterile) 20 ML 20 ML IVP SCH ×2 (08:39→21:14)
[2017-06-14] MEDS: Pantoprazole 40 MG VIAL IVP SCH (08:39)
[2017-06-14] MEDS: Micafungin 100 MG in 0.9 % Sodium Chloride Mini Bag 100 ML IVPB SCH (08:39)
[2017-06-14] MEDS: Nystatin SUSP 5 ML UD.LIQ PO SCH ×4 (08:40→21:13)
[2017-06-14] MEDS: Levothyroxine Sodium 100 MCG VIAL IVP SCH (08:40)
[2017-06-14] MEDS: Insulin DETEMIR 100 UNIT/ML X5UNITS SQ SCH (08:41)
--- NOTE | 2017-06-14 09:21 | Infectious Disease Progress No ---
Date of Encounter: 06/14/17 Time of Encounter: 09:15 - Assessment and Plan (1) Sepsis Current Visit: Yes Status: Acute Presented with 3 SIRS criteria. afebrile Leukocytosis 16.1 neutrophillic ( Patient had bandemia over the weekend which has now resolved). Secondary to complicated diverticulitis, and MRSA bacteremia, UTI 2nd to yeast Qualifiers: Sepsis type: methicillin resistant Staphylococcus aureus Qualified Code(s) : A41.02 - Sepsis due to Methicillin resistant Staphylococcus aureus (2) Perforated diverticulum Current Visit: Yes Status: Acute Patient presented with acute onset of sharp abdominal pain. Has history of sigmoid diverticulitis. CT abdomen on 05/29 showed pneumoperitoneum with diverticulitis of sigmoid colon. Patient underwent exploratory celiotomy with sigmoid colectomy on 06/04/17. She had a PICC line and subclavian CVC placed and confirmed by chest x-ray on . Patient was also started on Cipro and Flagyl on 05/29. patient became febrie 06/09, with worsening leukocytosis and antibiotics were broadened to vancomycin and cefepime and Flagyl as continued. blood Cultures on are negative. continues to have abdominal pain. abdomen distended, hypoactive bowel sounds. reports BM. fever of 102.1 on 06/11/17 and primary team started patient on Micafungin 100mg daily. Plan: Continue cefepime 2000 mg every 12h hours and Flagyl 500 mg every 8 hours. D/c micafungin and start diflucan 400 mg daily (3) MRSA bacteremia Current Visit: Yes Status: Acute Complicated MRSA bacteremia patient had left knee prosthetic joint Blood cultures from 06/08 from subclavian CVC and PICC line are positive for MRSA. Patient started on vancomycin and cefepime on 06/08 Since starting vancomycin patient's white blood cell count has improved from 15.1-10.9. Last trough of vancomycin was 18.3. Patient had repeat blood cultures drawn this morning including CvC, PICC and peripheral 06/10/17 all negative x6. PICC line culture of tip negative Plan: Continue vancomycin 1250 mg daily. Antibiotic duration will be determined by results of EMILIE. May re insert picc line and remove central line once ok with surgery (4) Hypothyroidism Current Visit: Yes Status: Acute As per primary. Qualifiers: Hypothyroidism type: acquired Qualified Code(s): E03.9 - Hypothyroidism, unspecified (5) Hypoxia Current Visit: Yes Status: Acute patient requiring O2 supplementation since being admitted O2 requirement decreased from 3L to 2L over last 24 hours. on lung exam has b/l wheezing CXR-negative for pleural effusion, consolidation. Free air under the right hemidiaphragm noted again unchanged. patient reports abdominal pain with inspiration which is also contributing respiratory status stable over weekend but not improved. plan: continue monitoring respiratory status (6) UTI (urinary tract infection) Current Visit: Yes Status: Acute 06/13 urine culture + for yeast. harry d/c patient reports urge incontinence patient started on micafungin 100mg daily started 06/13 Qualifiers: Urinary tract infection type: acute cystitis Hematuria presence: without hematuria Qualified Code(s): N30.00 - Acute cystitis without hematuria (7) Hydronephrosis Current Visit: Yes Status: Acute Discovered on CT abdomen 06/02 which showed right hydroureter with right ureteritis and bilateral pyelitis Underwent on 06/04/17 right ureteral stent placement and left ureteral catheter placement by urology. Patient has had 2 urine cultures which have been negative for growth. Urinalysis does not indicate any signs of infection. Patient has a Harry catheter out pitting light red urine. Likely secondary to urologic procedure. Patient is on broad-spectrum antibiotics, vancomycin, cefepime which will cover urinary tract infection. Repeat CT abdomen and pelvis on 06/07 showed improvement of right hydronephrosis and stable stent placement. Has follow-up with urology for stent removal no change in management from ID prespective. Qualifiers: Hydronephrosis type: other Qualified Code(s): N13.39 - Other hydronephrosis (8) DVT prophylaxis Current Visit: Yes Status: Acute (9) HTN (hypertension) Current Visit: Yes Status: Acute controlled. Qualifiers: Hypertension type: essential hypertension Qualified Code(s): I10 - Essential (primary) hypertension (10) Abdominal abscess Current Visit: Yes Status: Acute multiple small fluid collection concerning for intraabdominal abscesses will discuss with dr gallegos to see what plan is continue cefepime will need flagyl for anaerobic coverage if pt having nausea, will give antinausea meds - Subjective Interval history: Patient continues to have abdominal pain, sob. ON 06/11/17 patient had a fever of 102.4 but has been afebrile over the weekend. Also developed bandemia over the weekend which has resolved today. Patient was started on micafugin on . Urine culture 06/13/17 grew yeast. Harry catheter has been removed. Patient reports urge incontinence. Minimal discharge per abdominal incision. Patient is NPO. Reports bowel movements. Infect Dis PN-Objective Data - Labs CBC & Chem 7: 06/14/17 05:02 06/14/17 05:02 Labs: Laboratory Results - last 24 hr 06/13/17 06/13/17 06/13/17 03:33 07:14 12:06 WBC RBC Hgb Hct MCV MCH MCHC RDW Plt Count MPV Immature Gran % Seg Neutrophils % Lymphocytes % Monocytes % Eosinophils % Basophils % Neutrophils # Lymphocytes # Monocytes # Eosinophils # Basophils # Nucleated RBCs/100 WBC Reactive Lymphocytes Platelet Estimate POC Glucose 168 H 159 H 185 H 06/13/17 06/13/17 06/14/17 16:04 19:18 00:02 WBC RBC Hgb Hct MCV MCH MCHC RDW Plt Count MPV Immature Gran % Seg Neutrophils % Lymphocytes % Monocytes % Eosinophils % Basophils % Neutrophils # Lymphocytes # Monocytes # Eosinophils # Basophils # Nucleated RBCs/100 WBC Reactive Lymphocytes Platelet Estimate POC Glucose 176 H 222 H 139 H 06/14/17 05:02 WBC 16.1 H RBC 2.93 L Hgb 8.8 L Hct 27.8 L MCV 94.9 MCH 30.0 MCHC 31.7 RDW 14.3 Plt Count 450 H MPV 9.2 L Immature Gran % 5.5 H Seg Neutrophils % 69.7 Lymphocytes % 12.9 Monocytes % 9.4 Eosinophils % 1.8 Basophils % 0.7 Neutrophils # 11.2 H Lymphocytes # 2.1 Monocytes # 1.5 H Eosinophils # 0.3 Basophils # 0.1 Nucleated RBCs/100 WBC 0.1 H Reactive Lymphocytes Present A Platelet Estimate Normal POC Glucose Cultures: Cultures 06/13/17 04:38 Urine Culture - Preliminary Urine,[place] Yeast Species 06/10/17 16:40 Catheter Tip Culture - Final Intravenous or Arterial Cath No growth. 06/08/17 06:33 Blood Culture - Final Peripheral Central Cath, Picc Methicillin Resistant S.aureus 06/10/17 05:46 Blood Culture - Preliminary Peripheral Venipuncture No growth. 06/10/17 05:41 Blood Culture - Preliminary Peripheral Venipuncture No growth. 06/10/17 05:45 Blood Culture - Preliminary Peripheral Central Cath, Picc No growth. 06/10/17 11:35 Blood Culture - Preliminary Peripheral Central Cath, Picc No growth. 06/10/17 11:35 Blood Culture - Preliminary Central Venous Catheter No growth. 06/10/17 05:45 Blood Culture - Preliminary Central Venous Catheter No growth. 06/08/17 06:33 Blood Culture - Final Central Venous Catheter Methicillin Resistant S.aureus 06/08/17 04:20 Urine Culture - Final Urine,Clean Catch No significant growth. 06/03/17 09:25 Urine Culture - Final Urine,[place] No growth. 05/30/17 09:56 Blood Culture - Final Peripheral Venipuncture No growth. 05/30/17 10:10 Blood Culture - Final Peripheral Venipuncture No growth. Serology 06/08/17 06/08/17 Range/Units 06:33 04:20 Ur Specimen Adequacy Urine Color Dark Yellow (Yellow) Urine Clarity Clear (Clear) Urine pH 6.0 (5.0-8.0) pH Units Ur Specific [place] > 1.030 H (1.010-1.025) Urine Protein 100 H (Neg-Trace) mg/dL Urine Glucose (UA) 100 H (Normal) mg/dL Urine Ketones Negative (Negative) mg/dL Urine Blood Large H (Negative) Urine Nitrite Negative (Negative) Urine Bilirubin Negative (Negative) Urine Urobilinogen Normal (Normal) mg/dL Ur Leukocyte Esterase Small H (Negative) Ur Culture Indicated? YES A (NO) A. baumannii (PCR) Not Detected (Not Detect) Jayna albicans (PCR) Not Detected (Not Detect) C. glabrata (PCR) Not Detected (Not Detect) C. krusei (PCR) Not Detected (Not Detect) C. parapsilosis (PCR) Not Detected (Not Detect) C. tropicalis (PCR) Not Detected (Not Detect) Enterobacteriac sp PCR Not Detected (Not Detect) E. cloacae complex PCR Not Detected (Not Detect) Enterococcus sp PCR Not Detected (Not Detect) E. coli (PCR) Not Detected (Not Detect) H. influenzae (PCR) Not Detected (Not Detect) Klebsiella oxytoca PCR Not Detected (Not Detect) Klebsiella pneumoniae Not Detected (Not Detect) List. monocytogenes PCR Not Detected (Not Detect) N. meningitidis (PCR) Not Detected (Not Detect) Proteus species (PCR) Not Detected (Not Detect) Serratia marcescens PCR Not Detected (Not Detect) Staphylococcus sp PCR DETECTED A (Not Detect) Staph aureus (PCR) DETECTED A (Not Detect) mecA-Methicil Res Gene DETECTED A (Not Detect) Streptococcus sp PCR Not Detected (Not Detect) Group A Strep DNA Not Detected (Not Detect) Group B Strep (PCR) Not Detected (Not Detect) Strep pneumoniae (PCR) Not Detected (Not Detect) P. aeruginosa (PCR) Not Detected (Not Detect) Bryant/B-Vanco Res Genes Not Detected (Not Detect) KPC (blaKPC) Detect PCR Not Detected (Not Detect) Exam - Constitutional Vitals: Temp Pulse Resp BP Pulse Ox 98.7 F 98 16 134/72 94 06/14/17 07:30 06/14/17 08:00 06/14/17 08:55 06/14/17 08:00 06/14/17 08:55 - Additional findings Additional findings: General: Obese. Mild distress. HEENT: thrush improved. Heart: Regular rate and rhythm with no murmur Lungs: Clear to auscultation bilaterally, status post DuoNeb treatment Abdomen: Soft, nontender, distended, intact surgical wound, intact enedina, no drainage. Skin: warm and dry Extremities: Absent pedal edema, Neuro: Alert and oriented 3 Vascular: Pedal and radial pulses 2 out of 4 Lines: Left subclavian without signs of infection. Right PICC without signs of infection. - VTE Documentation of Mechanical Device: Intermittent pneumatic compression device Consult Discharge Plan - Plan Referrals: Kole Barksdale MD [Primary Care Provider] - 06/08/17 9:45 am - Attending Attestation I examined this patient and my medical decision-making was reviewed with the Resident Physician. I agree with the documented findings, disposition and treatment plan as described except to the extent set forth below.
[2017-06-14 09:28] LABS: BUN/Creatinine Ratio 29 (6-26); Blood Urea Nitrogen 27 mg/dL (8-23); Calcium 8.4 mg/dL (8.6-10.3); Carbon Dioxide 21 mEq/L (23-29); Chloride 98 mEq/L (98-107); Glucose 176 mg/dL (70-105); Osmolality,Calculated 281 (280-300); Potassium 3.7 mEq/L (3.5-5.1); Sodium 131 mEq/L (136-145); eGFR For African Americans > 60 (> 60); eGFR For Non-African Americans > 60 (> 60)
[2017-06-14] MEDS: 0.9 % Sodium Chloride 1,000 ML IVC SCH ×3 (12:18→23:48)
--- NOTE | 2017-06-14 12:42 | General Surgery Progress Note ---
Date of Encounter: 06/14/17 Time of Encounter: 12:32 Subjective Patient reports: feels better, bowel movement Narrative: General Surgery - POD #10 Patient feeling better though nausea persists. The nausea "comes and goes"; no emesis. The patient remains afebrile for the past 48 hours; heart rate currently 93 but as high as 103; respiratory rate 16-24, blood pressure currently 144/90 - likely due to patient being seated at bedside with increased discomfort; SPO2 on 2 L/m nasal cannula 96% Patient complaining of pleuritic pain when seated upright; no obvious pain when recumbent in bed Abdomen: Soft; less tender over the last 48 hours. Active bowel sounds. Bowel movement 3 in the last 24 hours. Midline incision remains clean and dry; no drainage Urine output: 1800 mL for counter day 06/13/17; 1250 mL so far today. Don catheter removed yesterday; furosemide 40 mg IV administered yesterday Laboratories: White count continues to rise, 16.1 but bandemia resolved; neutrophils remain elevated at 11.2%; monocytes elevated at 1.5% Hemoglobin and hematocrit stable at 8.8 and 27.8; platelet count 450,000 Electrolytes notable for sodium of 131, potassium 3.7, chloride 98, BUN has increased to 27 (likely due to Lasix); creatinine 0.92. Prealbumin remains low at 6.2 - despite TPN Impression/Plan: POD#10 - status post exploratory ciliotomy sigmoid colectomy with stapled colocolonic anastomosis for acute perforated sigmoid diverticulitis Persistent postoperative nausea with resultant poor oral intake.. Possibly due to metronidazole - will stop metronidazole Due to the poor oral intake; TPN has been maintained. Continue TPN with daily intralipids. Increasing leukocytosis but resolved bandemia; patient clinically improved - continue to monitor CT demonstrating multiple focal fluid collections possible abscesses and persistent pneumoperitoneum. MRSA bacteremia hyponatremia without neurologic sequelae. Status sufficiently improved and stable x 48 hours to be transferred out of ICU. Anemia - stable Objective Vital Signs - Last 8 Hours Temp Pulse Resp BP Pulse Ox 06/14/17 12:00 93 20 128/80 96 06/14/17 11:59 16 100 06/14/17 11:51 96 06/14/17 11:00 96 24 144/90 96 06/14/17 10:00 100 24 132/91 96 06/14/17 09:00 103 22 118/91 95 06/14/17 08:55 16 94 06/14/17 08:30 100 06/14/17 08:00 98 16 134/72 95 06/14/17 07:30 98.7 F 06/14/17 07:00 93 16 109/57 95 06/14/17 06:00 99 20 124/72 95 06/14/17 05:30 103 24 132/69 97 06/14/17 04:40 99.3 F Intake and Output 06/13/17 06/14/17 06/14/17 23:59 07:59 15:59 Intake Total 590 / 590 600 / 600 100 / 100 Output Total 1250 / 1250 1250 / 1250 Balance -660 / -660 -650 / -650 100 / 100 Intake: IV Fluids 570 / 570 600 / 600 100 / 100 Maxipime 2,000 MG In Water for 20 / 20 inj. (sterile) 20 ML @ 300 mls/ hr IVP Q12H [facility] Rx#:[id number] Intralipid 20% 250 ML @ 21 mls/ 250 / 250 hr IVPB DAILY@1700 [facility] Rx#: [id number] Flagyl Premix 500 MG/100 ML 500 100 / 100 100 / 100 mg In 100 ml @ 100 mls/hr IVPB Q8H [facility] Rx#:[id number] Mycamine 100 MG In 0.9 % Sodium 100 / 100 Chloride (Mini-Bag +) 100 ML @ 100 mls/hr IVPB DAILY [facility] Rx#: [id number] Potassium Chloride 20 mEq/100 200 / 200 mL 40 meq In 200 ml @ 100 mls/ hr IVPB Q1H [facility] Rx#:[id number] Vancocin 1,000 MG In Dextrose 5 250 / 250 250 / 250 % 250 ML @ 166.667 mls/hr IVPB Q12H [facility] Rx#:[id number] Oral 20 / 20 Output: Urine 450 / 450 1250 / 1250 Catheter 800 / 800 Other: Stool Size Small Stool Consistency liquid Stool Color Brown # Voids 1 # Bowel Movements 1 Weight 137.7 kg Blood Glucose* 222 201 Patient Weight 06/14/17 23:59 Weight 137.7 kg - Labs 06/14/17 05:02 06/14/17 05:02 Diabetes panel 06/14/17 Range/Units 05:02 Sodium 131 L (136-145) mEq/L Potassium 3.7 (3.5-5.1) mEq/L Chloride 98 (98-107) mEq/L Carbon Dioxide 21 L (23-29) mEq/L BUN 27 H (8-23) mg/dL Creatinine 0.92 (0.60-1.20) mg/dL Glucose 176 H (70-105) mg/dL Calcium 8.4 L (8.6-10.3) mg/dL Calcium panel 06/14/17 Range/Units 05:02 Calcium 8.4 L (8.6-10.3) mg/dL Pituitary panel 06/14/17 Range/Units 05:02 Sodium 131 L (136-145) mEq/L Potassium 3.7 (3.5-5.1) mEq/L Chloride 98 (98-107) mEq/L Carbon Dioxide 21 L (23-29) mEq/L BUN 27 H (8-23) mg/dL Creatinine 0.92 (0.60-1.20) mg/dL Glucose 176 H (70-105) mg/dL Calcium 8.4 L (8.6-10.3) mg/dL Adrenal panel 06/14/17 Range/Units 05:02 Sodium 131 L (136-145) mEq/L Potassium 3.7 (3.5-5.1) mEq/L Chloride 98 (98-107) mEq/L Carbon Dioxide 21 L (23-29) mEq/L BUN 27 H (8-23) mg/dL Creatinine 0.92 (0.60-1.20) mg/dL Glucose 176 H (70-105) mg/dL Calcium 8.4 L (8.6-10.3) mg/dL - VTE Documentation of Mechanical Device: Intermittent pneumatic compression device Consult Discharge Plan - Plan Referrals: Kole Barksdale MD [Primary Care Provider] - 06/08/17 9:45 am
[2017-06-14] MEDS: Ondansetron 4 MG/2 ML VIAL IVP PRN ×2 (13:00→23:48)
[2017-06-14] MEDS ORDERED: *HR* Dextrose 50 % in Water (Syg) 50 ML SYRINGE IVP PRN (13:05)
[2017-06-14] MEDS ORDERED: Dextrose Gel 15 GM/37.5 ML TUBE PO PRN (13:05)
[2017-06-14] MEDS ORDERED: D10% in Water 500 ML IVC PRN (13:05)
[2017-06-14] MEDS ORDERED: Naloxone 0.4 MG/ML INJ IVP PRN (13:05)
--- NOTE | 2017-06-14 14:33 | Internal Med Progress Note ---
<Leland Larson - Last Filed: 06/14/17 16:55> Date of Encounter: 06/14/17 Time of Encounter: 08:10 - Assessment and plan (1) Perforated diverticulum Current Visit: Yes Status: Acute Assessment and plan: ABD CT with multiple left sided colon and sigmoid diverticula with wall thickening and extraluminal gas/pneumoperitoneum consistent with acute perforated diverticulitis. Repeat abdominal CT on 06/02/17 showing 1.17 cm x 3.9 cm x 2.7 cm abscess inferior to the proximal sigmoid colon, increased inflammation of the mesentery, new minimal right hydronephrosis suggestive of uriritis. CT on 06/11/17 demonstrating decreased pneumoperitoneum, multiloculated fluid collection scattered throughout the albumin and pelvis which appeared to have increased in size, fluid collections along the incision line. - POD #10 s/p sigmoid colectomy with stapled colocolonic anastomosis - Afebrile last night, VSS. Leukocytosis of 16.1, increased from previous of 14.8 however bandemia has resolved - Pain better controlled with SPECIFICATIONS WRITER dilaudid - Phenergren and Zofran PRN nausea - Continue TPN - Diet advancement per surgery Plan - Changed ABx to cefepime, vanc day #7 - Started Micafungin for fevers and WBC despite broad spectrum antibiotics - Continue dilaudid SPECIFICATIONS WRITER - General surgery following. Continue ICU care - Continue TPN, NPO. Continues to not tolerate oral intake. - Per surgery, transfer from ICU as she has been stable for 48 hours (2) MRSA bacteremia Current Visit: Yes Status: Acute Assessment and plan: - Blood cultures positive for MRSA bacteremia - Suspected source is PICC line vs central venous line - ID consulted, appreciate recommendations - Repeat blood cultures and PICC tip are negative for growth - Has been on Vancomycine, cefepime, day #7 - Urine culture was negative for growth. - ID as suspicion of endocarditis, meets one major and one minor Herrera criteria. Requesting EMILIE. TTE shows ejection fraction of 65-70% with mild tricuspid regurgitation, no vegetations noted - echo LVEF 65-70%; mild LV diastolic dysfunction Plan - Continue vancomycin and cefepime, day 6 - Repeat cultures have been negative thus far. - Continue current abx treatment - Will obtain EMILIE once patient is more stable. (3) Sepsis Current Visit: Yes Status: Resolved Assessment and plan: - As above for MRSA bacteremia - AFebrile, tachycardic at 98 - No longer meeting septic criteria Qualifiers: Sepsis type: methicillin resistant Staphylococcus aureus Qualified Code(s) : A41.02 - Sepsis due to Methicillin resistant Staphylococcus aureus (4) Diverticulitis Current Visit: Yes Status: Acute Assessment and plan: as above (5) HTN (hypertension) Current Visit: Yes Status: Acute Assessment and plan: - BP well controlled at this visit. Most recent 134/72 - Holding home BP meds due to NPO status Plan - Continue hydralazine IV PRN hypertension Qualifiers: Hypertension type: essential hypertension Qualified Code(s): I10 - Essential (primary) hypertension (6) Hypothyroidism Current Visit: Yes Status: Acute Assessment and plan: Continue IV levothyroxine while nothing by mouth Qualifiers: Hypothyroidism type: acquired Qualified Code(s): E03.9 - Hypothyroidism, unspecified (7) Obesity Current Visit: Yes Status: Chronic Assessment and plan: BMI 46, weight 131kg. lifestyle modifications encouraged as outpatient Qualifiers: Obesity type: due to excess calories Obesity classification: adult class 3 (BMI >= 40) Serious obesity comorbidity presence: without serious comorbidity Body mass index: BMI 45.0-49.9 Qualified Code(s): E66.01 - Morbid (severe) obesity due to excess calories; Z68.42 - Body mass index (BMI) 45.0-49.9, adult ; Z68.42 - Body mass index (BMI) 45.0-49.9, adult; Z68.42 - Body mass index (BMI ) 45.0-49.9, adult; Z68.42 - Body mass index (BMI) 45.0-49.9, adult (8) Hypoxia Current Visit: Yes Status: Acute Assessment and plan: - Oxygen saturation down to 84% on room air on admission. - Morbid obesity likely playing a role however she is on SPECIFICATIONS WRITER pump and at risk for hypoventilation syndrome vs pain induced hypoventilation - Currently tolerating 95% on 2L - No reported underlying lung disease. - Likely secondary to atelectasis possible component of pulmonary edema Plan - Supplemental O2 as necessary. Aggressive IS. - Will continue to monitor and attempt to wean. -Also encouraged to seated position as pain allows to prevent atelectasis - will Continue monitoring renal function at this time (9) Cystitis Current Visit: Yes Status: Acute Assessment and plan: - ABD CT with thickening of bladder wall and questionable incomplete distention versus cystitis with mild hydronephrosis - Continue vanc, cefepime - Urology to place ureteral stent during surgery. Should follow up with urology as outpatient for stent removal. - Following, appreciate recs - Will monitor harry output, hydrate, monitor kidney function. (10) Hypokalemia Current Visit: Yes Status: Acute Assessment and plan: - K most recently 3.6 - Will replace with 40 mEq and continue to monitor (11) DVT prophylaxis Current Visit: Yes Status: Acute Assessment and plan: Continue SCDs - Time Spent With Patient 25 - 35 minutes - Subjective Interval history: Patient was seen and examined at bedside this morning. She does report continued pain from previous but states that is well controlled with her SPECIFICATIONS WRITER pump. She reports no subjective fevers overnight. Does admit to some nausea but is controlled with Phenergan. - Constitutional Vitals: Temp Pulse Resp BP Pulse Ox 97.7 F 93 20 128/80 96 06/14/17 12:00 06/14/17 12:00 06/14/17 12:00 06/14/17 12:00 06/14/17 12:00 General appearance: Present: A&O X 3, pleasant, answers questions appropriately Exam: Gen.: Vitals noted. No acute distress. AAOx3. Well-developed, well-nourished. More color, calm appearing. HEENT: PERRL/EOMI, oropharynx clear, Normocephalic, atraumatic Cardiac: RRR, no murmur, +S1/S2 Pulmonary: CTA bilaterally, no wheezes, rales or rhonchi, equal chest expansion Abdomen: soft, hypoactive bowel sounds, tender to palpation diffusely but improved, positive rebound MSK: ROM intact, no joint swelling noted Extremities: no BLE edema, nontender calf, no cyanosis or clubbing Neuro: A&Ox3, moves all extremities, no focal deficits Psych: Appropriate mood and behavior Internal Medicine: Result - Labs CBC & Chem 7: 06/14/17 05:02 06/14/17 05:02 Labs: Short CBC 06/14/17 Range/Units 05:02 WBC 16.1 H (4.3-11.1) K/mcL Hgb 8.8 L (11.5-15.4) g/dL Hct 27.8 L (35.3-44.9) % Plt Count 450 H (140-400) K/mcL Neutrophils # 11.2 H (1.6-8.9) K/mcL BMP 06/14/17 05:02 Sodium 131 L Potassium 3.7 Chloride 98 Carbon Dioxide 21 L BUN 27 H Creatinine 0.92 Glucose 176 H Calcium 8.4 L - ABG Interpretation ABG results: ABG ABG pH 7.43 pH Units (7.32-7.45) 06/08/17 04:24 ABG pCO2 35 mmHg (35-45) 06/08/17 04:24 ABG pO2 72 mmHg (85-104) L 06/08/17 04:24 ABG O2 Saturation 95 % (95-98) 06/08/17 04:24 PT/INR, D-dimer PT 13.8 Seconds (9.4-12.1) H 05/30/17 06:42 - VTE Documentation of Mechanical Device: Intermittent pneumatic compression device Consult Discharge Plan - Plan Referrals: Kole Barksdale MD [Primary Care Provider] - 06/08/17 9:45 am <John Browne - Last Filed: 06/14/17 19:31> Date of Encounter: 06/14/17 - Assessment and plan (1) Acute respiratory failure with hypoxia Current Visit: Yes Status: Acute (2) MRSA (methicillin resistant Staphylococcus aureus) infection Current Visit: Yes Status: Acute (3) MRSA bacteremia Current Visit: Yes Status: Acute (4) Diverticulitis large intestine Current Visit: Yes Status: Acute Qualifiers: Diverticulitis bleeding: without bleeding Diverticulitis complication: with perforation and abscess Qualified Code(s): K57.20 - Diverticulitis of large intestine with perforation and abscess without bleeding (5) HTN (hypertension) Current Visit: Yes Status: Acute Qualifiers: Hypertension type: essential hypertension Qualified Code(s): I10 - Essential (primary) hypertension (6) Hypothyroidism Current Visit: Yes Status: Acute Qualifiers: Hypothyroidism type: acquired Qualified Code(s): E03.9 - Hypothyroidism, unspecified (7) Morbid obesity with BMI of 45.0-49.9, adult Current Visit: Yes Status: Chronic (8) History of open sigmoidectomy Current Visit: Yes Status: Chronic - Constitutional Vitals: Temp Pulse Resp BP Pulse Ox 98.3 F 88 18 127/77 97 06/14/17 19:19 06/14/17 19:19 06/14/17 19:19 06/14/17 19:19 06/14/17 19:19 Internal Medicine: Result - Labs CBC & Chem 7: 06/14/17 05:02 06/14/17 05:02 Labs: Short CBC 06/14/17 Range/Units 05:02 WBC 16.1 H (4.3-11.1) K/mcL Hgb 8.8 L (11.5-15.4) g/dL Hct 27.8 L (35.3-44.9) % Plt Count 450 H (140-400) K/mcL Neutrophils # 11.2 H (1.6-8.9) K/mcL BMP 06/14/17 05:02 Sodium 131 L Potassium 3.7 Chloride 98 Carbon Dioxide 21 L BUN 27 H Creatinine 0.92 Glucose 176 H Calcium 8.4 L - ABG Interpretation ABG results: ABG ABG pH 7.43 pH Units (7.32-7.45) 06/08/17 04:24 ABG pCO2 35 mmHg (35-45) 06/08/17 04:24 ABG pO2 72 mmHg (85-104) L 06/08/17 04:24 ABG O2 Saturation 95 % (95-98) 06/08/17 04:24 PT/INR, D-dimer PT 13.8 Seconds (9.4-12.1) H 05/30/17 06:42 - Attending Attestation I examined this patient and my medical decision-making was reviewed with the Resident Physician on 06/14/17. I agree with the documented findings, disposition and treatment plan as described except to the extent set forth below. Ms Mitchell is currently admitted for perforated diverticulum and MRSA bacteremia. She remains moderate to high risk due to potential for worsening clinical status. Ms Mitchell feels OK at this time. No fever. Still nauseous. Pain about the same. Breathing OK. Exam alert Comfortable at this time Heart reg Diminished lungs I/P 1. MRSA bacteremia 2. Perf diverticulum Further diagnoses and plan as above.
[2017-06-14] MEDS: Fluconazole 400 MG/200 ML IVPB SCH (16:55)
[2017-06-14] MEDS ORDERED: Clinimix E 5%-15% SOLUTION 2,000 ML, Parenteral Amino Acid 10% 200 ML with MVI, adult ... IVC SCH ×2 (17:00)
[2017-06-15] MEDS: Albuterol 2.5 MG/3 ML NEBULIZER IH SCH ×7 (00:04→23:58)
[2017-06-15] MEDS: *HR* LORazepam 2 MG/ML VIAL IVP PRN ×2 (01:06→14:30)
[2017-06-15] MEDS: Insulin LISPRO 300 UNITS/3 ML VIAL SQ SCH ×5 (04:08→20:35)
[2017-06-15] MEDS: Ondansetron 4 MG/2 ML VIAL IVP PRN ×2 (04:17→14:31)
[2017-06-15 05:27] LABS: Basophils # 0.1 K/mcL (0.0-0.2); Basophils % 0.7 %; Eosinophils # 0.3 K/mcL (0.0-0.6); Eosinophils % 1.9 %; Hematocrit 27.8 % (35.3-44.9); Hemoglobin 8.8 g/dL (11.5-15.4); Immature Granulocytes % 4.9 % (0-4); Lymphocytes # 2.2 K/mcL (0.6-4.6); Mean Corpuscular HGB Conc 31.7 g/dL (31.6-35.5); Mean Corpuscular Hemoglobin 29.6 pg (28.0-33.3); Mean Corpuscular Volume 93.6 fL (83.0-100.0); Mean Platelet Volume 9.1 fL (9.4-12.4); Monocytes # 1.2 K/mcL (0.0-1.3); Monocytes % 7.7 %; Neutrophils # 11.3 K/mcL (1.6-8.9); Platelet Count 484 K/mcL (140-400); Red Blood Count 2.97 M/mcL (3.82-4.97); Red Cell Distribution Width 14.4 % (11.5-14.5); Segmented Neutrophils % 70.8 %
[2017-06-15 05:35] LABS: BUN/Creatinine Ratio 32 (6-26); Blood Urea Nitrogen 27 mg/dL (8-23); Calcium 8.2 mg/dL (8.6-10.3); Carbon Dioxide 26 mEq/L (23-29); Chloride 100 mEq/L (98-107); Glucose 171 mg/dL (70-105); Magnesium 1.9 mg/dL (1.6-2.6); Osmolality,Calculated 283 (280-300); Phosphorous 3.2 mg/dL (2.7-4.5); Potassium 3.9 mEq/L (3.5-5.1); Sodium 132 mEq/L (136-145); eGFR For African Americans > 60 (> 60); eGFR For Non-African Americans > 60 (> 60)
[2017-06-15 05:43] LABS: Platelet Estimate Increased (Normal)
[2017-06-15 05:44] LABS: Reactive Lymphocytes Present (Not Present)
[2017-06-15] MEDS: Vancomycin 1,000 MG in D5% in Water 250 ML IVPB SCH (05:51)
[2017-06-15] MEDS: Levothyroxine Sodium 100 MCG VIAL IVP SCH (05:52)
--- NOTE | 2017-06-15 08:20 | Internal Med Progress Note ---
<Chaitanya Mcgrath - Last Filed: 06/15/17 12:49> Date of Encounter: 06/15/17 Time of Encounter: 08:18 - Assessment and plan (1) Perforated diverticulum Current Visit: Yes Status: Acute Assessment and plan: POD #11 s/p sigmoid colectomy with stapled colocolonic anastomosis Afebrile last night, VSS. Leukocytosis stable at 16 Pain better controlled with MITER SAW OPERATOR dilaudid Phenergren and Zofran PRN nausea Continue TPN, Diet advancement per surgery (2) MRSA bacteremia Current Visit: Yes Status: Acute Assessment and plan: Blood cultures positive for MRSA bacteremia, with suspected source is PICC line vs central venous line ID consulted, appreciate recommendations Repeat blood cultures and PICC tip are negative for growth Has been on Vancomycine, cefepime, day #8 Urine culture was negative for growth. ID as suspicion of endocarditis, meets one major and one minor Herrera criteria; EMILIE once more stable TTE shows ejection fraction of 65-70% with mild tricuspid regurgitation, no vegetations noted (3) Acute respiratory failure with hypoxia Current Visit: Yes Status: Acute Assessment and plan: Likely secondary to atelectasis s/p surgery in setting of OHS Currenlty on 2 L oxygen but saturating well in the 90's; wean as tolerated Continue incentive spirometry while seated (4) HTN (hypertension) Current Visit: Yes Status: Chronic Assessment and plan: BP well controlled at this visit recently Holding home BP meds due to NPO status Continue hydralazine IV PRN hypertension Qualifiers: Hypertension type: essential hypertension Qualified Code(s): I10 - Essential (primary) hypertension (5) Hypothyroidism Current Visit: Yes Status: Chronic Assessment and plan: Continue IV levothyroxine while nothing by mouth Qualifiers: Hypothyroidism type: acquired Qualified Code(s): E03.9 - Hypothyroidism, unspecified (6) Cystitis Current Visit: Yes Status: Acute Assessment and plan: ABD CT with thickening of bladder wall and questionable incomplete distention versus cystitis with mild hydronephrosis Continue vanc, cefepime day 8 as above Urology placed ureteral stent during surgery. Should follow up with urology as outpatient for stent removal 3-4 weeks after procedure (7) Hydronephrosis Current Visit: Yes Status: Acute Qualifiers: Hydronephrosis type: other Qualified Code(s): N13.39 - Other hydronephrosis (8) Obesity Current Visit: Yes Status: Chronic Assessment and plan: BMI 49. lifestyle modifications encouraged as outpatient Qualifiers: Obesity type: due to excess calories Obesity classification: adult class 3 (BMI >= 40) Serious obesity comorbidity presence: without serious comorbidity Body mass index: BMI 45.0-49.9 Qualified Code(s): E66.01 - Morbid (severe) obesity due to excess calories; Z68.42 - Body mass index (BMI) 45.0-49.9, adult ; Z68.42 - Body mass index (BMI) 45.0-49.9, adult; Z68.42 - Body mass index (BMI ) 45.0-49.9, adult; Z68.42 - Body mass index (BMI) 45.0-49.9, adult (9) DVT prophylaxis Current Visit: Yes Status: Acute Assessment and plan: Continue SCDs - Subjective Interval history: Pt seen and examined. She states her pain is about the same as yesterday and located on the right side of her abdomen. She is still short of breath but denies any chest pain, fever. She did have 3 loose bowel movements yesterday and has been passing gas. Also complains of nausea but states it is somewhat improved with medication. Does not feel hungry even though she hasn't eaten in many days. - Constitutional Vitals: Temp Pulse Resp BP Pulse Ox 98.1 F 101 18 124/73 95 06/15/17 07:51 06/15/17 07:51 06/15/17 07:51 06/15/17 07:51 06/15/17 07:51 General appearance: Present: cooperative, pleasant, no acute distress, obese, answers questions appropriately - Head Head exam: Present: atraumatic, normocephalic - Eye Eye exam: Present: PERRL, conjuntiva pink, sclera anicteric - Neck Neck exam general surgery: Present: supple, trachea midline. Absent: lymphadenopathy - Respiratory Respiratory exam: Present: decreased breath sounds. Absent: accessory muscle use, rales, rhonchi, wheezes - Cardiovascular Cardiovascular exam: Present: RRR, +S1, +S2. Absent: diastolic murmur, gallop, rubs, systolic murmur - GI/Abdominal GI/Abdominal exam: Present: normal bowel sounds, soft, tenderness, no peritoneal signs. Absent: distended Additional comments: vertical incision midline, well healed - Extremities Exam Extremities exam: Present: warm, radial pulses palpable and symmetrical. Absent : calf tenderness, cyanotic, pedal edema - Neurological Exam Neurological exam: Present: alert, no focal deficits. Absent: facial droop, speech deficit - Skin Skin exam: Present: dry, intact Internal Medicine: Result - Labs CBC & Chem 7: 06/15/17 05:13 06/15/17 05:13 Labs: Short CBC 06/15/17 Range/Units 05:13 WBC 16.0 H (4.3-11.1) K/mcL Hgb 8.8 L (11.5-15.4) g/dL Hct 27.8 L (35.3-44.9) % Plt Count 484 H (140-400) K/mcL Neutrophils # 11.3 H (1.6-8.9) K/mcL BMP 06/14/17 06/15/17 05:02 05:13 Sodium 131 L 132 L Potassium 3.7 3.9 Chloride 98 100 Carbon Dioxide 21 L 26 BUN 27 H 27 H Creatinine 0.92 0.84 Glucose 176 H 171 H Calcium 8.4 L 8.2 L - ABG Interpretation ABG results: ABG ABG pH 7.43 pH Units (7.32-7.45) 06/08/17 04:24 ABG pCO2 35 mmHg (35-45) 06/08/17 04:24 ABG pO2 72 mmHg (85-104) L 06/08/17 04:24 ABG O2 Saturation 95 % (95-98) 06/08/17 04:24 PT/INR, D-dimer PT 13.8 Seconds (9.4-12.1) H 05/30/17 06:42 - VTE Documentation of Mechanical Device: Intermittent pneumatic compression device Consult Discharge Plan - Plan Referrals: Kole Barksdale MD [Primary Care Provider] - 06/08/17 9:45 am <Giancarlo Salazar H - Last Filed: 06/15/17 15:22> Date of Encounter: 06/15/17 - Constitutional Vitals: Temp Pulse Resp BP Pulse Ox 98.1 F 97 18 143/88 95 06/15/17 14:33 06/15/17 14:33 06/15/17 14:33 06/15/17 14:33 06/15/17 14:33 Internal Medicine: Result - Labs CBC & Chem 7: 06/15/17 05:13 06/15/17 05:13 Labs: Short CBC 06/15/17 Range/Units 05:13 WBC 16.0 H (4.3-11.1) K/mcL Hgb 8.8 L (11.5-15.4) g/dL Hct 27.8 L (35.3-44.9) % Plt Count 484 H (140-400) K/mcL Neutrophils # 11.3 H (1.6-8.9) K/mcL BMP 06/15/17 05:13 Sodium 132 L Potassium 3.9 Chloride 100 Carbon Dioxide 26 BUN 27 H Creatinine 0.84 Glucose 171 H Calcium 8.2 L - ABG Interpretation ABG results: ABG ABG pH 7.43 pH Units (7.32-7.45) 06/08/17 04:24 ABG pCO2 35 mmHg (35-45) 06/08/17 04:24 ABG pO2 72 mmHg (85-104) L 06/08/17 04:24 ABG O2 Saturation 95 % (95-98) 06/08/17 04:24 PT/INR, D-dimer PT 13.8 Seconds (9.4-12.1) H 05/30/17 06:42 - Attending Attestation Continue IV vancomycin I examined this patient and my medical decision-making was reviewed with the Resident Physician. I agree with the documented findings, disposition and treatment plan as described except to the extent set forth below.
[2017-06-15] MEDS: MetroNIDAZOLE 500 MG/100 ML 500 MG/100 ML BAG IVPB SCH ×2 (08:21→16:39)
[2017-06-15] MEDS ORDERED: Micafungin 100 MG in 0.9 % Sodium Chloride Mini Bag 100 ML IVPB SCH (09:00)
--- NOTE | 2017-06-15 09:39 | Infectious Disease Progress No ---
Date of Encounter: 06/15/17 Time of Encounter: 09:37 - Assessment and Plan (1) Sepsis Current Visit: Yes Status: Resolved Presented with 3 SIRS criteria. afebrile Leukocytosis 16.1 neutrophillic. absent bands Secondary to complicated diverticulitis, and MRSA bacteremia, UTI 2nd to yeast Qualifiers: Sepsis type: methicillin resistant Staphylococcus aureus Qualified Code(s) : A41.02 - Sepsis due to Methicillin resistant Staphylococcus aureus (2) Perforated diverticulum Current Visit: Yes Status: Acute Patient presented with acute onset of sharp abdominal pain. Has history of sigmoid diverticulitis. CT abdomen on 05/29 showed pneumoperitoneum with diverticulitis of sigmoid colon. Patient underwent exploratory celiotomy with sigmoid colectomy on 06/04/17. She had a PICC line and subclavian CVC placed and confirmed by chest x-ray on . Patient was also started on Cipro and Flagyl on 05/29. patient became febrie 06/09, with worsening leukocytosis and antibiotics were broadened to vancomycin and cefepime and Flagyl as continued. blood Cultures on are negative. continues to have abdominal pain but associated with movment. abdomen distention improved, normal bowel sounds. reports BM x3 yesterday. fever of 102.1 on 06/11/17 and primary team started patient on Micafungin 100mg daily. CT abdomen/pelvis 06/11 increasing fluid collections along abdominal incision, and multiloculated fluid loculations throughout the abdomen and pelvis increased in size and organizing, decreased pneumoperitoneum 06/14/18 micafungin d/c and patient started on diflucan Plan: Continue cefepime 2000 mg every 12h hours and Flagyl 500 mg every 8 hours and diflucan 400mg daily . Anticiotic duration depends on clinical picture (3) MRSA bacteremia Current Visit: Yes Status: Acute Complicated MRSA bacteremia patient had left knee prosthetic joint Blood cultures from 06/08 from subclavian CVC and PICC line are positive for MRSA. Patient started on vancomycin and cefepime on 06/08 Since starting vancomycin patient's white blood cell count has improved from 15.1-10.9. Last trough of vancomycin was 18.3. Patient had repeat blood cultures drawn this morning including CvC, PICC and peripheral 06/10/17 all negative x6. PICC line culture of tip negative TTE: LVEF 65-70% mild tricuspid regurgiations, no vavular vegetations are noted Plan: Continue vancomycin 1250 mg daily. Antibiotic duration will be determined by results of EMILIE, which patient will obtain once deemed by primary team to be stable for procedure. May reinsert picc line and remove central line once ok with surgery (4) Hypothyroidism Current Visit: Yes Status: Chronic As per primary. Qualifiers: Hypothyroidism type: acquired Qualified Code(s): E03.9 - Hypothyroidism, unspecified (5) Hypoxia Current Visit: Yes Status: Acute patient requiring O2 supplementation since being admitted O2 requirement 2L on lung exam clear CXR-negative for pleural effusion, consolidation. Free air under the right hemidiaphragm noted again unchanged. patient reports improved sob today plan as per primary (6) UTI (urinary tract infection) Current Visit: Yes Status: Acute 06/13 urine culture + for yeast. harry d/c patient reports urge incontinence patient started on diflucan 400mg daily Qualifiers: Urinary tract infection type: acute cystitis Hematuria presence: without hematuria Qualified Code(s): N30.00 - Acute cystitis without hematuria (7) Hydronephrosis Current Visit: Yes Status: Acute Discovered on CT abdomen 06/02 which showed right hydroureter with right ureteritis and bilateral pyelitis Underwent on 06/04/17 right ureteral stent placement and left ureteral catheter placement by urology. Patient has had 2 urine cultures which have been negative for growth. Urinalysis does not indicate any signs of infection. Patient has a Harry catheter out pitting light red urine. Likely secondary to urologic procedure. Patient is on broad-spectrum antibiotics, vancomycin, cefepime which will cover urinary tract infection. Repeat CT abdomen and pelvis on 06/07 showed improvement of right hydronephrosis and stable stent placement. Has follow-up with urology for stent removal no change in management from ID prespective. Qualifiers: Hydronephrosis type: other Qualified Code(s): N13.39 - Other hydronephrosis (8) DVT prophylaxis Current Visit: Yes Status: Acute (9) HTN (hypertension) Current Visit: Yes Status: Chronic controlled. Qualifiers: Hypertension type: essential hypertension Qualified Code(s): I10 - Essential (primary) hypertension - Subjective Interval history: Patient sitting comfortably in chair. She was transferred out of ICU yesterday. She reports improved sob. Continues to have abdominal pain but mostly with movement. Denies chills, nightsweats, chest pain. Reports having BM yesterday and is passing gas. Infect Dis PN-Objective Data - Labs CBC & Chem 7: 06/15/17 05:13 06/15/17 05:13 Labs: Laboratory Results - last 24 hr 06/14/17 06/14/17 06/14/17 03:44 05:02 07:18 WBC RBC Hgb Hct MCV MCH MCHC RDW Plt Count MPV Immature Gran % Seg Neutrophils % Lymphocytes % Monocytes % Eosinophils % Basophils % Neutrophils # Lymphocytes # Monocytes # Eosinophils # Basophils # Reactive Lymphocytes Platelet Estimate Sodium Potassium Chloride Carbon Dioxide BUN Creatinine Est GFR ( Amer) Est GFR (Non-Af Amer) BUN/Creatinine Ratio Glucose POC Glucose 174 H 201 H Calculated Osmolality Calcium Phosphorus Magnesium Prealbumin 6.2 L Vancomycin Trough 06/14/17 06/14/17 06/14/17 11:35 12:36 16:54 WBC RBC Hgb Hct MCV MCH MCHC RDW Plt Count MPV Immature Gran % Seg Neutrophils % Lymphocytes % Monocytes % Eosinophils % Basophils % Neutrophils # Lymphocytes # Monocytes # Eosinophils # Basophils # Reactive Lymphocytes Platelet Estimate Sodium Potassium Chloride Carbon Dioxide BUN Creatinine Est GFR ( Amer) Est GFR (Non-Af Amer) BUN/Creatinine Ratio Glucose POC Glucose 154 H 150 H Calculated Osmolality Calcium Phosphorus Magnesium Prealbumin Vancomycin Trough 15.7 06/14/17 06/14/17 06/15/17 19:22 23:36 03:35 WBC RBC Hgb Hct MCV MCH MCHC RDW Plt Count MPV Immature Gran % Seg Neutrophils % Lymphocytes % Monocytes % Eosinophils % Basophils % Neutrophils # Lymphocytes # Monocytes # Eosinophils # Basophils # Reactive Lymphocytes Platelet Estimate Sodium Potassium Chloride Carbon Dioxide BUN Creatinine Est GFR ( Amer) Est GFR (Non-Af Amer) BUN/Creatinine Ratio Glucose POC Glucose 190 H 116 H 189 H Calculated Osmolality Calcium Phosphorus Magnesium Prealbumin Vancomycin Trough 06/15/17 06/15/17 06/15/17 05:13 05:13 05:13 WBC 16.0 H RBC 2.97 L Hgb 8.8 L Hct 27.8 L MCV 93.6 MCH 29.6 MCHC 31.7 RDW 14.4 Plt Count 484 H MPV 9.1 L Immature Gran % 4.9 H Seg Neutrophils % 70.8 Lymphocytes % 14.0 Monocytes % 7.7 Eosinophils % 1.9 Basophils % 0.7 Neutrophils # 11.3 H Lymphocytes # 2.2 Monocytes # 1.2 Eosinophils # 0.3 Basophils # 0.1 Reactive Lymphocytes Present A Platelet Estimate Increased H Sodium 132 L Potassium 3.9 Chloride 100 Carbon Dioxide 26 BUN 27 H Creatinine 0.84 Est GFR ( Amer) > 60 Est GFR (Non-Af Amer) > 60 BUN/Creatinine Ratio 32 H Glucose 171 H POC Glucose Calculated Osmolality 283 Calcium 8.2 L Phosphorus 3.2 Magnesium 1.9 Prealbumin Vancomycin Trough 17.7 Cultures: Cultures 06/12/17 20:08 Blood Culture - Preliminary Peripheral Venipuncture No growth. 06/13/17 04:38 Urine Culture - Preliminary Urine,Harry Port Yeast Species 06/10/17 16:40 Catheter Tip Culture - Final Intravenous or Arterial Cath No growth. 06/08/17 06:33 Blood Culture - Final Peripheral Central Cath, Picc Methicillin Resistant S.aureus 06/10/17 05:46 Blood Culture - Preliminary Peripheral Venipuncture No growth. 06/10/17 05:41 Blood Culture - Preliminary Peripheral Venipuncture No growth. 06/10/17 05:45 Blood Culture - Preliminary Peripheral Central Cath, Picc No growth. 06/10/17 11:35 Blood Culture - Preliminary Peripheral Central Cath, Picc No growth. 06/10/17 11:35 Blood Culture - Preliminary Central Venous Catheter No growth. 06/10/17 05:45 Blood Culture - Preliminary Central Venous Catheter No growth. 06/08/17 06:33 Blood Culture - Final Central Venous Catheter Methicillin Resistant S.aureus 06/08/17 04:20 Urine Culture - Final Urine,Clean Catch No significant growth. 06/03/17 09:25 Urine Culture - Final Urine,Harry Port No growth. 05/30/17 09:56 Blood Culture - Final Peripheral Venipuncture No growth. 05/30/17 10:10 Blood Culture - Final Peripheral Venipuncture No growth. Serology 06/08/17 06/08/17 Range/Units 06:33 04:20 Ur Specimen Adequacy Urine Color Dark Yellow (Yellow) Urine Clarity Clear (Clear) Urine pH 6.0 (5.0-8.0) pH Units Ur Specific [place] > 1.030 H (1.010-1.025) Urine Protein 100 H (Neg-Trace) mg/dL Urine Glucose (UA) 100 H (Normal) mg/dL Urine Ketones Negative (Negative) mg/dL Urine Blood Large H (Negative) Urine Nitrite Negative (Negative) Urine Bilirubin Negative (Negative) Urine Urobilinogen Normal (Normal) mg/dL Ur Leukocyte Esterase Small H (Negative) Ur Culture Indicated? YES A (NO) A. baumannii (PCR) Not Detected (Not Detect) Jayna albicans (PCR) Not Detected (Not Detect) C. glabrata (PCR) Not Detected (Not Detect) C. krusei (PCR) Not Detected (Not Detect) C. parapsilosis (PCR) Not Detected (Not Detect) C. tropicalis (PCR) Not Detected (Not Detect) Enterobacteriac sp PCR Not Detected (Not Detect) E. cloacae complex PCR Not Detected (Not Detect) Enterococcus sp PCR Not Detected (Not Detect) E. coli (PCR) Not Detected (Not Detect) H. influenzae (PCR) Not Detected (Not Detect) Klebsiella oxytoca PCR Not Detected (Not Detect) Klebsiella pneumoniae Not Detected (Not Detect) List. monocytogenes PCR Not Detected (Not Detect) N. meningitidis (PCR) Not Detected (Not Detect) Proteus species (PCR) Not Detected (Not Detect) Serratia marcescens PCR Not Detected (Not Detect) Staphylococcus sp PCR DETECTED A (Not Detect) Staph aureus (PCR) DETECTED A (Not Detect) mecA-Methicil Res Gene DETECTED A (Not Detect) Streptococcus sp PCR Not Detected (Not Detect) Group A Strep DNA Not Detected (Not Detect) Group B Strep (PCR) Not Detected (Not Detect) Strep pneumoniae (PCR) Not Detected (Not Detect) P. aeruginosa (PCR) Not Detected (Not Detect) Bryant/B-Vanco Res Genes Not Detected (Not Detect) KPC (blaKPC) Detect PCR Not Detected (Not Detect) Exam - Constitutional Vitals: Temp Pulse Resp BP Pulse Ox 98.1 F 101 18 124/73 97 06/15/17 07:51 06/15/17 07:51 06/15/17 08:39 06/15/17 07:51 06/15/17 08:39 - Additional findings Additional findings: General: Obese. Mild distress. HEENT: thrush improving. Heart: Regular rate and rhythm with no murmur Lungs: Clear to auscultation bilaterally anteriorly Abdomen: Soft, nontender, distended (improved from yesterday), intact surgical wound, intact enedina, no drainage. Skin: warm and dry Extremities: Absent pedal edema, Neuro: Alert and oriented 3 Vascular: Pedal and radial pulses 2 out of 4 Lines: Left subclavian CVC without signs of infection. Right PICC without signs of infection. - VTE Documentation of Mechanical Device: Intermittent pneumatic compression device Consult Discharge Plan - Plan Referrals: Kole Barksdale MD [Primary Care Provider] - 06/08/17 9:45 am - Attending Attestation I examined this patient and my medical decision-making was reviewed with the Resident Physician. I agree with the documented findings, disposition and treatment plan as described except to the extent set forth below. Patient seen and examined. doing better clinically. states she has less pain central line left chest intact no picc placed yet continue with current antibiotics regimen OK to place a picc line and remove subclavian left chest
[2017-06-15] MEDS: Cefepime HCl 2,000 MG in Water for inj. (sterile) 20 ML 20 ML IVP SCH (10:43)
[2017-06-15] MEDS: Nystatin SUSP 5 ML UD.LIQ PO SCH ×3 (10:43→16:39)
[2017-06-15] MEDS: Pantoprazole 40 MG VIAL IVP SCH (10:43)
[2017-06-15] MEDS: Fluconazole 400 MG/200 ML IVPB SCH (10:44)
[2017-06-15] MEDS: Insulin DETEMIR 100 UNIT/ML X5UNITS SQ SCH (10:44)
--- NOTE | 2017-06-15 13:08 | General Surgery Progress Note ---
Date of Encounter: 06/15/17 Time of Encounter: 12:30 Subjective Narrative: General Surgery - POD#11 Looking and feeling much better; still complaining of nausea. Remains afebrile, currently 98.1; heart rate 101 (range 88-101); respiratory rate 18-20; blood pressure 124/73. Lungs: Clear bilaterally; pain on inspiration persists but is diminished Abdomen: Soft, active bowel sounds. Midline incision remains clean and dry with no drainage Patient describes 3 BMs in the last 24 hours. Urine output: 1950 mL 4 calendar day 06/14/17; Don out, patient able to void. 550 mL so far today. Laboratories: White count 16.0, hemoglobin 8.8, hematocrit 27.8. Platelet count 484,000. Immature granulocytes have diminished to 4.9% Neutrophils stable at 11.3%. Sodium 132, other electrolytes stable, BUN 27, creatinine 0.84 Impression: POD #11, status post exploratory celiotomy with sigmoid colectomy and stapled colocolonic anastomosis secondary to acute perforated sigmoid diverticulitis. Patient appears to be improved. In better spirits, abdominal complaints diminished. Persistent leukocytosis - differential improved. Persistent nausea Stable hyponatremia MRSA bacteremia, also appears stable Objective Vital Signs - Last 8 Hours Temp Pulse Resp BP Pulse Ox 06/15/17 11:45 20 89 06/15/17 08:39 18 97 06/15/17 07:51 98.1 F 101 18 124/73 95 Intake and Output 06/14/17 06/15/17 06/15/17 23:59 07:59 15:59 Intake Total 1650 / 1650 620 / 620 1764 / 1764 Output Total 700 / 700 550 / 550 Balance 950 / 950 70 / 70 1764 / 1764 Intake: IV Fluids 1650 / 1650 620 / 620 1764 / 1764 0.9 % Sodium Chloride 1,000 ML 1000 / 1000 207 / 207 @ 25 mls/hr IVC .Q24H [facility] Rx#: [id number] Clinimix E 5%-15% SOLUTION 2, 1437 / 1437 000 ML Travasol 10% 200 ML @ 91 .6 mls/hr IVC .Q24H [facility] with M. v.i. Adult 10 ml Rx#:[id number] Maxipime 2,000 MG In Water for 20 / 20 inj. (sterile) 20 ML @ 300 mls/ hr IVP Q12H [facility] Rx#:[id number] Intralipid 20% 250 ML @ 21 mls/ 250 / 250 hr IVPB DAILY@1700 [facility] Rx#: [id number] Diflucan Premix 400 MG/200 ML 200 / 200 400 mg In 200 ml @ 200 mls/hr IVPB DAILY [facility] Rx#:[id number] Flagyl Premix 500 MG/100 ML 500 200 / 200 100 / 100 100 / 100 mg In 100 ml @ 100 mls/hr IVPB Q8HR [facility] Rx#:[id number] Vancocin 1,000 MG In Dextrose 5 250 / 250 250 / 250 % 250 ML @ 166.667 mls/hr IVPB Q12H [facility] Rx#:[id number] Oral 0 / 0 0 / 0 Output: Urine 700 / 700 550 / 550 Other: Meal npo # Voids 1 1 Blood Glucose* 190 189 137 - Labs 06/15/17 05:13 06/15/17 05:13 Diabetes panel 06/15/17 Range/Units 05:13 Sodium 132 L (136-145) mEq/L Potassium 3.9 (3.5-5.1) mEq/L Chloride 100 (98-107) mEq/L Carbon Dioxide 26 (23-29) mEq/L BUN 27 H (8-23) mg/dL Creatinine 0.84 (0.60-1.20) mg/dL Glucose 171 H (70-105) mg/dL Calcium 8.2 L (8.6-10.3) mg/dL Calcium panel 06/15/17 Range/Units 05:13 Calcium 8.2 L (8.6-10.3) mg/dL Phosphorus 3.2 (2.7-4.5) mg/dL Pituitary panel 06/15/17 Range/Units 05:13 Sodium 132 L (136-145) mEq/L Potassium 3.9 (3.5-5.1) mEq/L Chloride 100 (98-107) mEq/L Carbon Dioxide 26 (23-29) mEq/L BUN 27 H (8-23) mg/dL Creatinine 0.84 (0.60-1.20) mg/dL Glucose 171 H (70-105) mg/dL Calcium 8.2 L (8.6-10.3) mg/dL Adrenal panel 06/15/17 Range/Units 05:13 Sodium 132 L (136-145) mEq/L Potassium 3.9 (3.5-5.1) mEq/L Chloride 100 (98-107) mEq/L Carbon Dioxide 26 (23-29) mEq/L BUN 27 H (8-23) mg/dL Creatinine 0.84 (0.60-1.20) mg/dL Glucose 171 H (70-105) mg/dL Calcium 8.2 L (8.6-10.3) mg/dL - VTE Documentation of Mechanical Device: Intermittent pneumatic compression device Consult Discharge Plan - Plan Referrals: Kole Barksdale MD [Primary Care Provider] - 06/08/17 9:45 am
[2017-06-15] MEDS ORDERED: Clinimix E 5%-15% SOLUTION 2,000 ML, Parenteral Amino Acid 10% 200 ML with MVI, adult ... IVC SCH (17:00)
[2017-06-15] MEDS: *HR* HYDROmorphone 20 MG/20 ML PCA IVC PRN (21:41)
[2017-06-15] MEDS: Vancomycin 1,750 MG in D5% in Water 500 ML IVPB SCH (21:49)
[2017-06-16] MEDS: Insulin LISPRO 300 UNITS/3 ML VIAL SQ SCH ×6 (00:52→20:16)
[2017-06-16] MEDS: Cefepime HCl 2,000 MG in Water for inj. (sterile) 20 ML 20 ML IVP SCH ×2 (01:05→08:52)
[2017-06-16] MEDS: Nystatin SUSP 5 ML UD.LIQ PO SCH ×5 (01:06→20:15)
[2017-06-16] MEDS: MetroNIDAZOLE 500 MG/100 ML 500 MG/100 ML BAG IVPB SCH ×2 (01:07→08:53)
[2017-06-16] MEDS: Ondansetron 4 MG/2 ML VIAL IVP PRN ×3 (01:08→18:35)
[2017-06-16] MEDS: Albuterol 2.5 MG/3 ML NEBULIZER IH SCH ×6 (04:31→23:49)
[2017-06-16] MEDS: Levothyroxine Sodium 100 MCG VIAL IVP SCH (05:20)
[2017-06-16 06:01] LABS: Eosinophils # 0.3 K/mcL (0.0-0.6); Hemoglobin 8.6 g/dL (11.5-15.4); Lymphocytes # 2.5 K/mcL (0.6-4.6); Mean Corpuscular HGB Conc 31.9 g/dL (31.6-35.5); Mean Corpuscular Hemoglobin 29.8 pg (28.0-33.3); Mean Corpuscular Volume 93.4 fL (83.0-100.0); Mean Platelet Volume 10.1 fL (9.4-12.4); Nucleated Red Blood Cells 0.3 /100 WBC (0); Platelet Count 367 K/mcL (140-400); Red Blood Count 2.89 M/mcL (3.82-4.97); Red Cell Distribution Width 14.4 % (11.5-14.5)
[2017-06-16 06:17] LABS: BUN/Creatinine Ratio 30 (6-26); Blood Urea Nitrogen 26 mg/dL (8-23); Calcium 8.2 mg/dL (8.6-10.3); Carbon Dioxide 28 mEq/L (23-29); Chloride 103 mEq/L (98-107); Glucose 138 mg/dL (70-105); Osmolality,Calculated 287 (280-300); Potassium 4.6 mEq/L (3.5-5.1); Sodium 135 mEq/L (136-145); eGFR For African Americans > 60 (> 60); eGFR For Non-African Americans > 60 (> 60)
[2017-06-16 08:22] LABS: Monocytes # 0.9 K/mcL (0.0-1.3); Neutrophils # 11.6 K/mcL (1.6-8.9); Platelet Estimate Normal (Normal)
[2017-06-16] MEDS: Pantoprazole 40 MG VIAL IVP SCH (08:51)
[2017-06-16] MEDS: Fluconazole 400 MG/200 ML IVPB SCH (08:53)
[2017-06-16] MEDS: Insulin DETEMIR 100 UNIT/ML X5UNITS SQ SCH ×2 (08:53→20:16)
--- NOTE | 2017-06-16 09:32 | Infectious Disease Progress No ---
Date of Encounter: 06/16/17 Time of Encounter: 09:27 - Assessment and Plan (1) Sepsis Current Visit: Yes Status: Resolved Presented with 3 SIRS criteria. afebrile Leukocytosis: wbc 15.3 Secondary to complicated diverticulitis, and MRSA bacteremia, UTI 2nd to yeast Qualifiers: Sepsis type: methicillin resistant Staphylococcus aureus Qualified Code(s) : A41.02 - Sepsis due to Methicillin resistant Staphylococcus aureus (2) Perforated diverticulum Current Visit: Yes Status: Acute Patient presented with acute onset of sharp abdominal pain. Has history of sigmoid diverticulitis. CT abdomen on 05/29 showed pneumoperitoneum with diverticulitis of sigmoid colon. Patient underwent exploratory celiotomy with sigmoid colectomy on 06/04/17. She had a PICC line and subclavian CVC placed and confirmed by chest x-ray on . Patient was also started on Cipro and Flagyl on 05/29. patient became febrie 06/09, with worsening leukocytosis and antibiotics were broadened to vancomycin and cefepime and Flagyl as continued. blood Cultures on are negative. fever of 102.1 on 06/11/17 and primary team started patient on Micafungin 100mg daily. CT abdomen/pelvis 06/11 increasing fluid collections along abdominal incision, and multiloculated fluid loculations throughout the abdomen and pelvis increased in size and organizing, decreased pneumoperitoneum 06/14/18 micafungin d/c and patient started on diflucan today patient has RUQ abdominal pain that she states is unbearable. there is no pain around incision. will await surgery recommendations: patient may need repeat evaluation by imaging of organized fluid abscesses noted on CT abdomen/pelvis on 06/11/17 Plan: Continue cefepime 2000 mg every 12h hours and Flagyl 500 mg every 8 hours and diflucan 400mg daily . Antibiotic duration depends on clinical picture (3) MRSA bacteremia Current Visit: Yes Status: Acute Complicated MRSA bacteremia patient had left knee prosthetic joint Blood cultures from 06/08 from subclavian CVC and PICC line are positive for MRSA. Patient started on vancomycin and cefepime on 06/08 Since starting vancomycin patient's white blood cell count has improved from 15.1-10.9. Last trough of vancomycin was 18.3. Patient had repeat blood cultures drawn CvC, PICC and peripheral 06/10/17 all negative x6. PICC line culture of tip negative TTE: LVEF 65-70% mild tricuspid regurgiations, no vavular vegetations are noted vanc trough 17 kidney function stable Plan: Continue vancomycin mg daily. Antibiotic duration will be determined by results of EMILIE, which patient will obtain once deemed by primary team to be stable for procedure. May reinsert picc line and remove central line once ok with surgery (4) Hypothyroidism Current Visit: Yes Status: Chronic As per primary. Qualifiers: Hypothyroidism type: acquired Qualified Code(s): E03.9 - Hypothyroidism, unspecified (5) Hypoxia Current Visit: Yes Status: Acute patient requiring O2 supplementation since being admitted O2 requirement 2L on lung exam clear anteriorly CXR 06/10/17 negative for pleural effusion, consolidation. Free air under the right hemidiaphragm noted again unchanged. sob unchanged from yesterday plan as per primary (6) UTI (urinary tract infection) Current Visit: Yes Status: Acute 06/13 urine culture + for yeast. harry d/c patient reports urge incontinence continue: diflucan 400mg daily Qualifiers: Urinary tract infection type: acute cystitis Hematuria presence: without hematuria Qualified Code(s): N30.00 - Acute cystitis without hematuria (7) Hydronephrosis Current Visit: Yes Status: Acute Discovered on CT abdomen 06/02 which showed right hydroureter with right ureteritis and bilateral pyelitis Underwent on 06/04/17 right ureteral stent placement and left ureteral catheter placement by urology. Patient has had 2 urine cultures which have been negative for growth. Urinalysis does not indicate any signs of infection. Patient has a Harry catheter out pitting light red urine. Likely secondary to urologic procedure. Patient is on broad-spectrum antibiotics, vancomycin, cefepime which will cover urinary tract infection. Repeat CT abdomen and pelvis on 06/07 showed improvement of right hydronephrosis and stable stent placement. Has follow-up with urology for stent removal no change in management from ID prespective. Qualifiers: Hydronephrosis type: other Qualified Code(s): N13.39 - Other hydronephrosis (8) HTN (hypertension) Current Visit: Yes Status: Chronic controlled. Qualifiers: Hypertension type: essential hypertension Qualified Code(s): I10 - Essential (primary) hypertension (9) DVT prophylaxis Current Visit: Yes Status: Acute - Subjective Interval history: Patient looks more uncomfortable this morning. Reports having a bowel movement this morning that was liquid. Reports "unbearable" RUQ abdominal pain which she did not have yesterday. She still has constant nausea. Sob is unchanged. She denies night sweats or chills. Infect Dis PN-Objective Data - Labs CBC & Chem 7: 06/16/17 05:48 06/16/17 05:48 Labs: Laboratory Results - last 24 hr 06/15/17 06/15/17 06/15/17 08:15 11:48 16:21 WBC RBC Hgb Hct MCV MCH MCHC RDW Plt Count MPV Seg Neutrophils % Band Neutrophils % Lymphocytes % Monocytes % Eosinophils % Neutrophils # Lymphocytes # Monocytes # Eosinophils # Nucleated RBCs/100 WBC Platelet Estimate Sodium Potassium Chloride Carbon Dioxide BUN Creatinine Est GFR ( Amer) Est GFR (Non-Af Amer) BUN/Creatinine Ratio Glucose POC Glucose 163 H 137 H 207 H Calculated Osmolality Calcium 06/15/17 06/16/17 06/16/17 19:50 00:37 04:07 WBC RBC Hgb Hct MCV MCH MCHC RDW Plt Count MPV Seg Neutrophils % Band Neutrophils % Lymphocytes % Monocytes % Eosinophils % Neutrophils # Lymphocytes # Monocytes # Eosinophils # Nucleated RBCs/100 WBC Platelet Estimate Sodium Potassium Chloride Carbon Dioxide BUN Creatinine Est GFR ( Amer) Est GFR (Non-Af Amer) BUN/Creatinine Ratio Glucose POC Glucose 147 H 203 H 177 H Calculated Osmolality Calcium 06/16/17 06/16/17 05:48 05:48 WBC 15.3 H RBC 2.89 L Hgb 8.6 L Hct 27.0 L MCV 93.4 MCH 29.8 MCHC 31.9 RDW 14.4 Plt Count 367 MPV 10.1 Seg Neutrophils % 74.0 Band Neutrophils % 2.0 Lymphocytes % 16.0 Monocytes % 6.0 Eosinophils % 2.0 Neutrophils # 11.6 H Lymphocytes # 2.5 Monocytes # 0.9 Eosinophils # 0.3 Nucleated RBCs/100 WBC 0.3 H Platelet Estimate Normal Sodium 135 L Potassium 4.6 Chloride 103 Carbon Dioxide 28 BUN 26 H Creatinine 0.87 Est GFR ( Amer) > 60 Est GFR (Non-Af Amer) > 60 BUN/Creatinine Ratio 30 H Glucose 138 H POC Glucose Calculated Osmolality 287 Calcium 8.2 L Cultures: Cultures 06/10/17 05:45 Blood Culture - Final Peripheral Central Cath, Picc No growth. 06/10/17 05:41 Blood Culture - Final Peripheral Venipuncture No growth. 06/10/17 11:35 Blood Culture - Final Peripheral Central Cath, Picc No growth. 06/10/17 05:45 Blood Culture - Final Central Venous Catheter No growth. 06/10/17 05:46 Blood Culture - Final Peripheral Venipuncture No growth. 06/10/17 11:35 Blood Culture - Final Central Venous Catheter No growth. 06/12/17 20:08 Blood Culture - Preliminary Peripheral Venipuncture No growth. 06/13/17 04:38 Urine Culture - Preliminary Urine,Harry [place] Yeast Species 06/10/17 16:40 Catheter Tip Culture - Final Intravenous or Arterial Cath No growth. 06/08/17 06:33 Blood Culture - Final Peripheral Central Cath, Picc Methicillin Resistant S.aureus 06/08/17 06:33 Blood Culture - Final Central Venous Catheter Methicillin Resistant S.aureus 06/08/17 04:20 Urine Culture - Final Urine,Clean Catch No significant growth. 06/03/17 09:25 Urine Culture - Final Urine,[place] No growth. 05/30/17 09:56 Blood Culture - Final Peripheral Venipuncture No growth. 05/30/17 10:10 Blood Culture - Final Peripheral Venipuncture No growth. Serology 06/08/17 06/08/17 Range/Units 06:33 04:20 Ur Specimen Adequacy Urine Color Dark Yellow (Yellow) Urine Clarity Clear (Clear) Urine pH 6.0 (5.0-8.0) pH Units Ur Specific [place] > 1.030 H (1.010-1.025) Urine Protein 100 H (Neg-Trace) mg/dL Urine Glucose (UA) 100 H (Normal) mg/dL Urine Ketones Negative (Negative) mg/dL Urine Blood Large H (Negative) Urine Nitrite Negative (Negative) Urine Bilirubin Negative (Negative) Urine Urobilinogen Normal (Normal) mg/dL Ur Leukocyte Esterase Small H (Negative) Ur Culture Indicated? YES A (NO) A. baumannii (PCR) Not Detected (Not Detect) Jayna albicans (PCR) Not Detected (Not Detect) C. glabrata (PCR) Not Detected (Not Detect) C. krusei (PCR) Not Detected (Not Detect) C. parapsilosis (PCR) Not Detected (Not Detect) C. tropicalis (PCR) Not Detected (Not Detect) Enterobacteriac sp PCR Not Detected (Not Detect) E. cloacae complex PCR Not Detected (Not Detect) Enterococcus sp PCR Not Detected (Not Detect) E. coli (PCR) Not Detected (Not Detect) H. influenzae (PCR) Not Detected (Not Detect) Klebsiella oxytoca PCR Not Detected (Not Detect) Klebsiella pneumoniae Not Detected (Not Detect) List. monocytogenes PCR Not Detected (Not Detect) N. meningitidis (PCR) Not Detected (Not Detect) Proteus species (PCR) Not Detected (Not Detect) Serratia marcescens PCR Not Detected (Not Detect) Staphylococcus sp PCR DETECTED A (Not Detect) Staph aureus (PCR) DETECTED A (Not Detect) mecA-Methicil Res Gene DETECTED A (Not Detect) Streptococcus sp PCR Not Detected (Not Detect) Group A Strep DNA Not Detected (Not Detect) Group B Strep (PCR) Not Detected (Not Detect) Strep pneumoniae (PCR) Not Detected (Not Detect) P. aeruginosa (PCR) Not Detected (Not Detect) Brynat/B-Vanco Res Genes Not Detected (Not Detect) KPC (blaKPC) Detect PCR Not Detected (Not Detect) Exam - Constitutional Vitals: Temp Pulse Resp BP Pulse Ox 98.5 F 95 16 107/65 96 06/16/17 06:41 06/16/17 06:41 06/16/17 06:41 06/16/17 06:41 06/16/17 06:41 - Additional findings Additional findings: General: Obese. Mild distress. HEENT: thrush continues to improve. Heart: Regular rate and rhythm with no murmur Lungs: Clear to auscultation bilaterally anteriorly, diminished Abdomen: Soft, tender in RUQ with mild palpation. non-tender along incision. Incision intact, enedina intact. There is no drainage. Skin: warm and dry Extremities: Absent pedal edema, Neuro: Alert and oriented 3 Vascular: Pedal and radial pulses 2 out of 4 Lines: Left subclavian CVC without signs of infection. Right PICC without signs of infection. - VTE Documentation of Mechanical Device: Intermittent pneumatic compression device Consult Discharge Plan - Plan Referrals: Kole Barksdale MD [Primary Care Provider] - 06/08/17 9:45 am - Attending Attestation I examined this patient and my medical decision-making was reviewed with the Resident Physician. I agree with the documented findings, disposition and treatment plan as described except to the extent set forth below. pt giving conflicting report on abdominal pain.
--- NOTE | 2017-06-16 11:07 | Internal Med Progress Note ---
<Chaitanya Mcgrath - Last Filed: 06/16/17 13:29> Date of Encounter: 06/16/17 Time of Encounter: 11:06 - Assessment and plan (1) Perforated diverticulum Current Visit: Yes Status: Acute Assessment and plan: POD #12 s/p sigmoid colectomy with stapled colocolonic anastomosis Afebrile last night, VSS. Leukocytosis slightly improved at 15 from 16 yesterday Pain adequately controlled with GLASS INSERTER dilaudid Phenergren and Zofran PRN nausea Diet advanced to clear liquids per surgery (2) MRSA bacteremia Current Visit: Yes Status: Acute Assessment and plan: Blood cultures positive for MRSA bacteremia, with suspected source is PICC line vs central venous line ID consulted, appreciate recommendations Repeat blood cultures and PICC tip are negative for growth Has been on Vancomycine, cefepime, day #9 ID as suspicion of endocarditis, meets one major and one minor Herrera criteria; will need EMILIE prior to discharge TTE shows ejection fraction of 65-70% with mild tricuspid regurgitation, no vegetations noted (3) Acute respiratory failure with hypoxia Current Visit: Yes Status: Acute Assessment and plan: Likely secondary to atelectasis s/p surgery in setting of OHS Currenlty on 2 L oxygen but saturating well in the 90's; wean as tolerated Continue incentive spirometry while seated (4) Acute worsening of stage 3 chronic kidney disease Current Visit: Yes Status: Resolved Assessment and plan: Cr back to her baseline Will continue to monitor Cr and electrolytes (5) HTN (hypertension) Current Visit: Yes Status: Chronic Assessment and plan: BP well controlled at this visit recently Hold Losartan for now as her pressures have been stable Continue hydralazine IV PRN hypertension Qualifiers: Hypertension type: essential hypertension Qualified Code(s): I10 - Essential (primary) hypertension (6) Hypothyroidism Current Visit: Yes Status: Chronic Assessment and plan: Continue IV levothyroxine, will transition to PO once she better tolerates orally Qualifiers: Hypothyroidism type: acquired Qualified Code(s): E03.9 - Hypothyroidism, unspecified (7) Cystitis Current Visit: Yes Status: Acute Assessment and plan: ABD CT with thickening of bladder wall and questionable incomplete distention versus cystitis with mild hydronephrosis Continue vanc, cefepime day 8 as above Urology placed ureteral stent during surgery. Should follow up with urology as outpatient for stent removal 3-4 weeks after procedure Urine culture positive for hakn, currently on Fluconazole (8) Hydronephrosis Current Visit: Yes Status: Acute Assessment and plan: s/p stent placement by urology during her colectomy Will need outpatient follow up for removal of stent Qualifiers: Hydronephrosis type: other Qualified Code(s): N13.39 - Other hydronephrosis (9) Obesity Current Visit: Yes Status: Chronic Assessment and plan: BMI 49. lifestyle modifications encouraged as outpatient Qualifiers: Obesity type: due to excess calories Obesity classification: adult class 3 (BMI >= 40) Serious obesity comorbidity presence: without serious comorbidity Body mass index: BMI 45.0-49.9 Qualified Code(s): E66.01 - Morbid (severe) obesity due to excess calories; Z68.42 - Body mass index (BMI) 45.0-49.9, adult ; Z68.42 - Body mass index (BMI) 45.0-49.9, adult; Z68.42 - Body mass index (BMI ) 45.0-49.9, adult; Z68.42 - Body mass index (BMI) 45.0-49.9, adult (10) Abdominal abscess Current Visit: Yes Status: Acute Assessment and plan: CT on 06/11 s/p colectomy demonstrated multiloculated fluid collection scattered throughout the abdomen and pelvis Will repeat CT as she has persistent tenderness upon examination despite Dilaudid GLASS INSERTER (11) DVT prophylaxis Current Visit: Yes Status: Acute Assessment and plan: Continue SCDs - Subjective Interval history: Pt seen and examined. She states her pain is about the same as yesterday and located on the right side of her abdomen. Her breathing is slightly improved but she is still having nausea. She did start her diet yesterday and states she doesn't have much of an appetite with her nausea. Denies chest pain, fever, diarrhea. She did have a formed bowel movement yesterday. - Constitutional Vitals: Temp Pulse Resp BP Pulse Ox 98.5 F 84 16 143/71 96 06/16/17 06:41 06/16/17 08:45 06/16/17 06:41 06/16/17 08:45 06/16/17 06:41 General appearance: Present: cooperative, pleasant, no acute distress, obese, answers questions appropriately - Head Head exam: Present: atraumatic, normocephalic - Eye Eye exam: Present: PERRL, conjuntiva pink, sclera anicteric - Neck Neck exam general surgery: Present: supple, trachea midline. Absent: lymphadenopathy - Respiratory Respiratory exam: Present: CTAB. Absent: accessory muscle use, rales, rhonchi, wheezes - Cardiovascular Cardiovascular exam: Present: RRR, +S1, +S2. Absent: diastolic murmur, gallop, rubs, systolic murmur - GI/Abdominal GI/Abdominal exam: Present: normal bowel sounds, soft, no peritoneal signs. Absent: distended, tenderness - Extremities Exam Extremities exam: Present: warm, radial pulses palpable and symmetrical. Absent : calf tenderness, cyanotic, pedal edema - Neurological Exam Neurological exam: Present: alert, no focal deficits. Absent: facial droop, speech deficit - Skin Skin exam: Present: dry, intact Internal Medicine: Result - Labs CBC & Chem 7: 06/16/17 05:48 06/16/17 05:48 Labs: Short CBC 06/16/17 Range/Units 05:48 WBC 15.3 H (4.3-11.1) K/mcL Hgb 8.6 L (11.5-15.4) g/dL Hct 27.0 L (35.3-44.9) % Plt Count 367 (140-400) K/mcL Neutrophils # 11.6 H (1.6-8.9) K/mcL BMP 06/16/17 05:48 Sodium 135 L Potassium 4.6 Chloride 103 Carbon Dioxide 28 BUN 26 H Creatinine 0.87 Glucose 138 H Calcium 8.2 L - ABG Interpretation ABG results: ABG ABG pH 7.43 pH Units (7.32-7.45) 06/08/17 04:24 ABG pCO2 35 mmHg (35-45) 06/08/17 04:24 ABG pO2 72 mmHg (85-104) L 06/08/17 04:24 ABG O2 Saturation 95 % (95-98) 06/08/17 04:24 PT/INR, D-dimer PT 13.8 Seconds (9.4-12.1) H 05/30/17 06:42 - VTE Documentation of Mechanical Device: Intermittent pneumatic compression device Consult Discharge Plan - Plan Referrals: Kole Barksdale MD [Primary Care Provider] - 06/08/17 9:45 am <Giancarlo Salazar H - Last Filed: 06/16/17 13:53> Date of Encounter: 06/16/17 - Constitutional Vitals: Temp Pulse Resp BP Pulse Ox 98.2 F 97 16 137/80 96 06/16/17 11:18 06/16/17 11:18 06/16/17 11:18 06/16/17 11:18 06/16/17 11:18 Internal Medicine: Result - Labs CBC & Chem 7: 06/16/17 05:48 06/16/17 05:48 Labs: Short CBC 06/16/17 Range/Units 05:48 WBC 15.3 H (4.3-11.1) K/mcL Hgb 8.6 L (11.5-15.4) g/dL Hct 27.0 L (35.3-44.9) % Plt Count 367 (140-400) K/mcL Neutrophils # 11.6 H (1.6-8.9) K/mcL BMP 06/16/17 05:48 Sodium 135 L Potassium 4.6 Chloride 103 Carbon Dioxide 28 BUN 26 H Creatinine 0.87 Glucose 138 H Calcium 8.2 L - ABG Interpretation ABG results: ABG ABG pH 7.43 pH Units (7.32-7.45) 06/08/17 04:24 ABG pCO2 35 mmHg (35-45) 06/08/17 04:24 ABG pO2 72 mmHg (85-104) L 06/08/17 04:24 ABG O2 Saturation 95 % (95-98) 06/08/17 04:24 PT/INR, D-dimer PT 13.8 Seconds (9.4-12.1) H 05/30/17 06:42 - Attending Attestation Discussed the case with ID, will order CT scan of the abdomen to evaluate the status of her abdominal collections and consider draining I examined this patient and my medical decision-making was reviewed with the Resident Physician. I agree with the documented findings, disposition and treatment plan as described except to the extent set forth below.
[2017-06-16] MEDS: *HR* LORazepam 2 MG/ML VIAL IVP PRN ×2 (11:17→20:19)
[2017-06-16] MEDS ORDERED: Furosemide 40 MG/4 ML VIAL IVP ONE (16:23)
--- NOTE | 2017-06-16 16:51 | General Surgery Progress Note ---
Date of Encounter: 06/16/17 Time of Encounter: 15:30 Subjective Narrative: General Surgery - POD#12 Patient indicating she feels about the same as yesterday; she is still complaining of nausea which is interfering with any significant oral intake. No emesis Patient continues to be afebrile, pulse 84-97; no tachycardia since 05/3017 recorded at 0751. Respiratory rate 18-20; blood pressure 124/73 Lungs: Clear bilaterally with minimal pain on deep inspiration Abdomen: Soft, with tenderness most pronounced midline cephalad to the umbilicus. Active bowel sounds. Midline incision clean and dry. It appears that the patient is getting conflicting reports on the degree of abdominal pain and the number of bowel movements per day. The patient told me she had 3 bowel movements yesterday; nursing recorded none though a bowel movement the day before and a bowel movement today is noted. The patient also describes varying pain levels from 3-7 on a scale of 10. Review of [employer] usage demonstrates little utilization of the medication available to the patient Urine output: 550 mL for the last 24 hours; no urine output recorded for this date Laboratories: White count has improved from 16.0-15.3. Hemoglobin stable at 8.6 , hematocrit 27.0. Differential is notable for neutrophils at 11.6% (slightly increased from 11.3) Sodium is improved to 135, potassium 4.6, BUN 26, creatinine 0.87. Accu-Cheks ranging from 135-207 CT abdomen/pelvis completed today - reviewed with [facility]iology Findings include: Small right pleural effusion, bilateral dependent atelectasis ; double-J right ureteral stent with increased right proximal hydronephrosis suggesting occlusion of the ureteral stent; persistent moderate free intraperitoneal air with multiple extraluminal collections of air and fluid but no extravasation of oral contrast demonstrated; the largest air-fluid closure measures 8.8 x 9.7 cm in the mid anterior abdomen which on previous CT measured 4.3 x 6.1; Stable hair-hepatic fluid and air; soft tissue anasarca; stable induration of the pelvic mesentery with concern for persistent peritonitis; increased simple fluid collection within the soft tissue in the midline incision consistent with an enlarging seroma. Impression: Postoperative day #12, status post exploratory celiotomy, sigmoid colectomy with stapled colocolonic anastomosis due to acute perforated sigmoid diverticulitis. Persistent postoperative pneumoperitoneum is of an increasing air-fluid collection in the mid abdomen consistent with an abscess. Increased right proximal hydronephrosis suggestive of occlusion of the right ureteral stent. MRSA bacteremia Stable anemia Persistent nausea - possibly due to the intra-abdominal/pelvic inflammation versus continued administration metronidazole leukocytosis that has recently improved Plan: I have discussed percutaneous drainage of the mid abdominal abscess with interventional radiology; they will evaluate the patient in the a.m. I have discussed the increased right proximal hydronephrosis with [facility]. They will evaluate and make recommendations I have discussed continued antibiotic therapy with [facility], especially my concern that Metronidazole is contributing to the patient's nausea and anorexia. Meropenem has been recommended to replace both the cefipime and metronidazole with improved coverage against Pseudomonas Replace PICC in the next 2-3 days with removal of the left subclavian CVL following the percutaneous drainage of the abscess described above. Continue TPN until nausea and anorexia controlled to allow increased enteral nutrition. Objective Vital Signs - Last 8 Hours Temp Pulse Resp BP Pulse Ox 06/16/17 11:18 98.2 F 97 16 137/80 96 06/16/17 08:45 84 143/71 Intake and Output 06/16/17 06/16/17 06/16/17 07:59 15:59 23:59 Intake Total 520 / 520 830 / 830 Balance 520 / 520 830 / 830 Intake: IV Fluids 370 / 370 830 / 830 0.9 % Sodium Chloride 1,000 ML 510 / 510 @ 25 mls/hr IVC .Q24H [facility] Rx#: [id number] Maxipime 2,000 MG In Water for 20 / 20 20 / 20 inj. (sterile) 20 ML @ 300 mls/ hr IVP Q12H [facility] Rx#:[id number] Intralipid 20% 250 ML @ 21 mls/ 250 / 250 hr IVPB DAILY@1700 [facility] Rx#: [id number] Diflucan Premix 400 MG/200 ML 200 / 200 400 mg In 200 ml @ 200 mls/hr IVPB DAILY [facility] Rx#:[id number] Flagyl Premix 500 MG/100 ML 500 100 / 100 100 / 100 mg In 100 ml @ 100 mls/hr IVPB Q8HR [facility] Rx#:[id number] Oral 150 / 150 Other: Stool Size Small Stool Consistency loose Stool Color Brown Pale # Voids 1 1 # Urine Diapers 1 Weight 137.9 kg Blood Glucose* 177 145 Patient Weight 06/16/17 23:59 Weight 137.9 kg - Labs 06/16/17 05:48 06/16/17 05:48 Diabetes panel 06/16/17 Range/Units 05:48 Sodium 135 L (136-145) mEq/L Potassium 4.6 (3.5-5.1) mEq/L Chloride 103 (98-107) mEq/L Carbon Dioxide 28 (23-29) mEq/L BUN 26 H (8-23) mg/dL Creatinine 0.87 (0.60-1.20) mg/dL Glucose 138 H (70-105) mg/dL Calcium 8.2 L (8.6-10.3) mg/dL Calcium panel 06/16/17 Range/Units 05:48 Calcium 8.2 L (8.6-10.3) mg/dL Pituitary panel 06/16/17 Range/Units 05:48 Sodium 135 L (136-145) mEq/L Potassium 4.6 (3.5-5.1) mEq/L Chloride 103 (98-107) mEq/L Carbon Dioxide 28 (23-29) mEq/L BUN 26 H (8-23) mg/dL Creatinine 0.87 (0.60-1.20) mg/dL Glucose 138 H (70-105) mg/dL Calcium 8.2 L (8.6-10.3) mg/dL Adrenal panel 06/16/17 Range/Units 05:48 Sodium 135 L (136-145) mEq/L Potassium 4.6 (3.5-5.1) mEq/L Chloride 103 (98-107) mEq/L Carbon Dioxide 28 (23-29) mEq/L BUN 26 H (8-23) mg/dL Creatinine 0.87 (0.60-1.20) mg/dL Glucose 138 H (70-105) mg/dL Calcium 8.2 L (8.6-10.3) mg/dL - VTE Documentation of Mechanical Device: Intermittent pneumatic compression device Consult Discharge Plan - Plan Referrals: Kole Barksdale MD [Primary Care Provider] - 06/08/17 9:45 am
[2017-06-16] MEDS: Clinimix E 5%-15% SOLUTION 2,000 ML, Parenteral Amino Acid 10% 200 ML with MVI, adult ... IVC SCH (17:43)
[2017-06-16] MEDS ORDERED: Meropenem 500 MG in Water for inj. (sterile) 10 ML IVP SCH (18:00)
[2017-06-16] MEDS: Meropenem 500 MG in Water for inj. (sterile) 10 ML IVP SCH (18:35)
[2017-06-16] MEDS ORDERED: *HR* LORazepam 2 MG/ML VIAL IVP ONE (20:00)
[2017-06-16] MEDS: Vancomycin 1,750 MG in D5% in Water 500 ML IVPB SCH (20:15)
[2017-06-17] MEDS: Insulin LISPRO 300 UNITS/3 ML VIAL SQ SCH ×5 (01:08→21:30)
[2017-06-17] MEDS: Ondansetron 4 MG/2 ML VIAL IVP PRN ×2 (01:15→18:15)
[2017-06-17] MEDS: 0.9 % Sodium Chloride 1,000 ML IVC SCH (01:23)
[2017-06-17] MEDS: Albuterol 2.5 MG/3 ML NEBULIZER IH SCH ×5 (04:19→20:03)
[2017-06-17] MEDS: Meropenem 500 MG in Water for inj. (sterile) 10 ML IVP SCH (05:43)
[2017-06-17] MEDS: Levothyroxine Sodium 100 MCG VIAL IVP SCH (05:43)
[2017-06-17 06:34] LABS: Hematocrit 26.5 % (35.3-44.9); Hemoglobin 8.5 g/dL (11.5-15.4); Mean Corpuscular HGB Conc 32.1 g/dL (31.6-35.5); Mean Corpuscular Hemoglobin 29.9 pg (28.0-33.3); Mean Corpuscular Volume 93.3 fL (83.0-100.0); Mean Platelet Volume 8.8 fL (9.4-12.4); Nucleated Red Blood Cells 0.2 /100 WBC (0); Platelet Count 455 K/mcL (140-400); Red Blood Count 2.84 M/mcL (3.82-4.97); Red Cell Distribution Width 14.4 % (11.5-14.5)
[2017-06-17 06:42] LABS: INR 1.5; Prothrombin Time 16.4 Seconds (9.4-12.1)
--- NOTE | 2017-06-17 08:36 | Internal Med Progress Note ---
<Chaitanya Mcgrath - Last Filed: 06/17/17 08:33> Date of Encounter: 06/17/17 Time of Encounter: 08:33 - Assessment and plan (1) Perforated diverticulum Current Visit: Yes Status: Acute Assessment and plan: POD #13 s/p sigmoid colectomy with stapled colocolonic anastomosis Afebrile last night, VSS. Leukocytosis stable at 15 Pain adequately controlled with BLASTING ENTRYMAN dilaudid Phenergren and Zofran PRN nausea Currently NPO for possible procedure today (2) MRSA bacteremia Current Visit: Yes Status: Acute Assessment and plan: Blood cultures positive for MRSA bacteremia, with suspected source is PICC line vs central venous line ID consulted, appreciate recommendations Repeat blood cultures and PICC tip are negative for growth Has been on Vancomycin day 10; Meropenem started yesterday ID as suspicion of endocarditis, meets one major and one minor Herrera criteria; will need EMILIE prior to discharge TTE shows ejection fraction of 65-70% with mild tricuspid regurgitation, no vegetations noted (3) Abdominal abscess Current Visit: Yes Status: Acute Assessment and plan: CT 06/16 revealed enlarging fluid collections suspicious for organizing abscess Surgery spoke to IR who may perform percutaneous drainage today Currently NPO (4) Acute respiratory failure with hypoxia Current Visit: Yes Status: Acute Assessment and plan: Likely secondary to atelectasis s/p surgery in setting of OHS; she is clinically stable Currenlty on 2 L oxygen but saturating well in the 90's; wean as tolerated Continue incentive spirometry while seated (5) Acute worsening of stage 3 chronic kidney disease Current Visit: Yes Status: Resolved Assessment and plan: Cr back to her baseline Will continue to monitor Cr and electrolytes (6) HTN (hypertension) Current Visit: Yes Status: Chronic Assessment and plan: BP well controlled at this visit recently Hold Losartan for now as her pressures have been stable Continue hydralazine IV PRN hypertension Qualifiers: Hypertension type: essential hypertension Qualified Code(s): I10 - Essential (primary) hypertension (7) Hypothyroidism Current Visit: Yes Status: Chronic Assessment and plan: Continue IV levothyroxine, will transition to PO once she better tolerates orally Qualifiers: Hypothyroidism type: acquired Qualified Code(s): E03.9 - Hypothyroidism, unspecified (8) Cystitis Current Visit: Yes Status: Acute Assessment and plan: ABD CT with thickening of bladder wall and questionable incomplete distention versus cystitis with mild hydronephrosis Continue vanc, radha as above Urology placed ureteral stent during surgery. Should follow up with urology as outpatient for stent removal 3-4 weeks after procedure Urine culture positive for hank, currently on Fluconazole (9) Hydronephrosis Current Visit: Yes Status: Acute Assessment and plan: CT yesterday showed enlarging hydronephrosis despite stent placement Surgery spoke to urology who may re-stent her today Qualifiers: Hydronephrosis type: other Qualified Code(s): N13.39 - Other hydronephrosis (10) Obesity Current Visit: Yes Status: Chronic Assessment and plan: BMI 49. lifestyle modifications encouraged as outpatient Qualifiers: Obesity type: due to excess calories Obesity classification: adult class 3 (BMI >= 40) Serious obesity comorbidity presence: without serious comorbidity Body mass index: BMI 45.0-49.9 Qualified Code(s): E66.01 - Morbid (severe) obesity due to excess calories; Z68.42 - Body mass index (BMI) 45.0-49.9, adult ; Z68.42 - Body mass index (BMI) 45.0-49.9, adult; Z68.42 - Body mass index (BMI ) 45.0-49.9, adult; Z68.42 - Body mass index (BMI) 45.0-49.9, adult (11) DVT prophylaxis Current Visit: Yes Status: Acute Assessment and plan: Continue SCDs - Subjective Interval history: Pt seen and examined. She states she is still having nausea and abdominal pain that is relatively unchanged from yesterday. She has not eaten anything but states she did have 3 formed bowel movements yesterday. Has no issues with chest pain, shortness of breath, bloody bowel movements. She did state while standing up, she had some bloody discharge from her incision. - Constitutional Vitals: Temp Pulse Resp BP Pulse Ox 98.5 F 98 16 134/77 97 06/17/17 07:56 06/17/17 07:56 06/17/17 07:56 06/17/17 07:56 06/17/17 07:56 General appearance: Present: cooperative, pleasant, no acute distress, obese, answers questions appropriately - Head Head exam: Present: atraumatic, normocephalic - Eye Eye exam: Present: PERRL, conjuntiva pink, sclera anicteric - Neck Neck exam general surgery: Present: supple, trachea midline. Absent: lymphadenopathy - Respiratory Respiratory exam: Present: decreased breath sounds. Absent: accessory muscle use, rales, rhonchi, wheezes - Cardiovascular Cardiovascular exam: Present: RRR, +S1, +S2. Absent: diastolic murmur, gallop, rubs, systolic murmur - GI/Abdominal GI/Abdominal exam: Present: normal bowel sounds, soft, no peritoneal signs. Absent: distended, tenderness Additional comments: Incision does have some drainage in the inferior aspect; wrapped - Extremities Exam Extremities exam: Present: pedal edema, warm, radial pulses palpable and symmetrical. Absent: calf tenderness, cyanotic - Neurological Exam Neurological exam: Present: alert, no focal deficits. Absent: facial droop, speech deficit - Skin Skin exam: Present: dry, intact Internal Medicine: Result - Labs CBC & Chem 7: 06/17/17 06:18 06/16/17 05:48 Labs: Short CBC 06/17/17 Range/Units 06:18 WBC 15.7 H (4.3-11.1) K/mcL Hgb 8.5 L (11.5-15.4) g/dL Hct 26.5 L (35.3-44.9) % Plt Count 455 H (140-400) K/mcL - ABG Interpretation ABG results: ABG ABG pH 7.43 pH Units (7.32-7.45) 06/08/17 04:24 ABG pCO2 35 mmHg (35-45) 06/08/17 04:24 ABG pO2 72 mmHg (85-104) L 06/08/17 04:24 ABG O2 Saturation 95 % (95-98) 06/08/17 04:24 PT/INR, D-dimer PT 16.4 Seconds (9.4-12.1) H 06/17/17 06:18 - Impressions Impressions Abdomen/Pelvis CT 06/16/17 14:30 IMPRESSION: 1. Multiple loculated air-fluid collections throughout the abdomen and pelvis. The largest collection has increased in size, measuring up to 9.7 cm, within the anterior abdomen. Given the increasing air of this collection, infection is suspected. The remainder of the fluid collections are similar, but are also likely abscesses. No evidence of extravasated oral contrast. 2. Moderate pneumoperitoneum, similar to the previous exam. 3. Stable induration of the pelvis, suspicious for peritonitis. 4. Moderate right hydronephrosis, increased from the previous exam, with double-J right ureteral stent in place. This may represent a partially occluded ureteral stent. Correlation with the patient's renal function tests is suggested. 5. Increase in size of a 4.1 x 5.6 cm simple fluid collection within the soft tissues beneath the laparotomy enedina, likely an enlarging seroma. Results verbally discussed with Dr. Machuca at 16:00 on 06/16/2017 D/ / 06/16/2017 15:46:36 Leland Santiago MD / hermelinda Interpreting Provider: Leland Santiago MD - VTE Documentation of Mechanical Device: Intermittent pneumatic compression device Consult Discharge Plan - Plan Referrals: Kole Barksdale MD [Primary Care Provider] - 06/08/17 9:45 am <Giancarlo Salazar H - Last Filed: 06/17/17 09:31> Date of Encounter: 06/17/17 - Constitutional Vitals: Temp Pulse Resp BP Pulse Ox 98.5 F 98 16 134/77 97 06/17/17 07:56 06/17/17 07:56 06/17/17 09:05 06/17/17 07:56 06/17/17 09:05 Internal Medicine: Result - Labs CBC & Chem 7: 06/17/17 06:18 06/16/17 05:48 Labs: Short CBC 06/17/17 Range/Units 06:18 WBC 15.7 H (4.3-11.1) K/mcL Hgb 8.5 L (11.5-15.4) g/dL Hct 26.5 L (35.3-44.9) % Plt Count 455 H (140-400) K/mcL - ABG Interpretation ABG results: ABG ABG pH 7.43 pH Units (7.32-7.45) 06/08/17 04:24 ABG pCO2 35 mmHg (35-45) 06/08/17 04:24 ABG pO2 72 mmHg (85-104) L 06/08/17 04:24 ABG O2 Saturation 95 % (95-98) 06/08/17 04:24 PT/INR, D-dimer PT 16.4 Seconds (9.4-12.1) H 06/17/17 06:18 - Impressions Impressions Abdomen/Pelvis CT 06/16/17 14:30 IMPRESSION: 1. Multiple loculated air-fluid collections throughout the abdomen and pelvis. The largest collection has increased in size, measuring up to 9.7 cm, within the anterior abdomen. Given the increasing air of this collection, infection is suspected. The remainder of the fluid collections are similar, but are also likely abscesses. No evidence of extravasated oral contrast. 2. Moderate pneumoperitoneum, similar to the previous exam. 3. Stable induration of the pelvis, suspicious for peritonitis. 4. Moderate right hydronephrosis, increased from the previous exam, with double-J right ureteral stent in place. This may represent a partially occluded ureteral stent. Correlation with the patient's renal function tests is suggested. 5. Increase in size of a 4.1 x 5.6 cm simple fluid collection within the soft tissues beneath the laparotomy enedina, likely an enlarging seroma. Results verbally discussed with Dr. Machuca at 16:00 on 06/16/2017 D/ / 06/16/2017 15:46:36 Leland Santiago MD / hermelinda Interpreting Provider: Leland Santiago MD - Attending Attestation Continue vancomycin and meropenem Interventional radiology to drain the larger abdominal abscess I examined this patient and my medical decision-making was reviewed with the Resident Physician. I agree with the documented findings, disposition and treatment plan as described except to the extent set forth below.
[2017-06-17 09:31] LABS: Alanine Aminotransferase 9 Units/L (7-52); Albumin 2.5 g/dL (3.5-5.7); Albumin/Globulin Ratio 0.5 (1.1-2.2); Alkaline Phosphatase 62 Units/L (34-104); Aspartate Amino Transferase 25 Units/L (13-39); BUN/Creatinine Ratio 26 (6-26); Bilirubin,Total 0.4 mg/dL (0.3-1.0); Blood Urea Nitrogen 25 mg/dL (8-23); Calcium 8.2 mg/dL (8.6-10.3); Carbon Dioxide 28 mEq/L (23-29); Chloride 98 mEq/L (98-107); Globulin 4.6 g/dL (2.4-3.5); Glucose 121 mg/dL (70-105); Osmolality,Calculated 282 (280-300); Potassium 3.9 mEq/L (3.5-5.1); Sodium 133 mEq/L (136-145); Total Protein 7.1 g/dL (6.4-8.9); eGFR For African Americans > 60 (> 60); eGFR For Non-African Americans 58 (> 60)
[2017-06-17 09:38] LABS: Lymphocytes # 2.2 K/mcL (0.6-4.6); Monocytes # 0.9 K/mcL (0.0-1.3); Neutrophils # 11.9 K/mcL (1.6-8.9)
[2017-06-17 09:39] LABS: Polychromasia 1+ (Not Present); Toxic Granulation Present (Not Present)
[2017-06-17] MEDS: Insulin DETEMIR 100 UNIT/ML X5UNITS SQ SCH ×2 (09:39→21:31)
[2017-06-17] MEDS: Nystatin SUSP 5 ML UD.LIQ PO SCH ×4 (09:39→21:33)
[2017-06-17] MEDS: Pantoprazole 40 MG VIAL IVP SCH (09:39)
[2017-06-17] MEDS: Fluconazole 400 MG/200 ML IVPB SCH (09:40)
[2017-06-17] MEDS: *HR* LORazepam 2 MG/ML VIAL IVP PRN ×2 (09:50→18:16)
--- NOTE | 2017-06-17 10:19 | General Surgery Progress Note ---
Date of Encounter: 06/17/17 Time of Encounter: 10:09 Subjective Narrative: General Surgery - POD #13 patient describes "a rough night" due to new onset drainage from the anterior abd wall incision - this represents the subcutaneous fluid collection in the subcutaneous tissue deep to the incision described on CT.The fluid appears purulent. . Patient continues complain of nausea but it "comes and goes " patient remains afebrile; currently 98.5; pulse currently 98 but tachycardia to 110 noted during the night possibly due to patient anxiety related to the increased abdominal wall drainage. Blood pressure stable 134/ 77. Respiratory rate 16, SPO2 on 2 L/m nasal cannula 97%. Percutaneous drainage of the intra-abdominal air-fluid collection pending. Discusse with Dr Maradiaga this AM. Urine output 1450 mL following administration of Lasix last evening Laboratories: Leukocytosis essentially unchanged at 15.7; bandemia has increased to 6% myelocytes 2%, metamyelocytes 2% neutrophilia 11.9% Hyponatremia, 133 without neurologic symptoms; other electrolytes stable, potassium 3.9 BUN 25, creatinine 0.97 Accu-Cheks today 140s to 150s Impression: Postoperative day #13; acute perforated sigmoid diverticulitis, status post sigmoid colectomy with stapled colocolonic anastomosis. Significant persistent intraperitoneal inflammation; abscess mid anterior abdomen to be drained percutaneously per Interventional Radiology Spontaneous drainage of subcutaneous fluid collection/abscess anterior abdominal wall. persistent, stable hyponatremia MRSA bacteremia - currently on vancomycin and meropenem; antifungal therapy as well persistent nausea Anasarca Objective Vital Signs - Last 8 Hours Temp Pulse Resp BP Pulse Ox 06/17/17 09:05 16 97 06/17/17 07:56 98.5 F 98 16 134/77 97 06/17/17 04:23 98.8 F 97 14 119/67 96 Intake and Output 06/16/17 06/17/17 06/17/17 23:59 07:59 15:59 Intake Total 293 / 293 60 / 60 Output Total 1450 / 1450 Balance -1157 / -1157 60 / 60 Intake: IV Fluids 293 / 293 0.9 % Sodium Chloride 1,000 ML 283 / 283 @ 25 mls/hr IVC .Q24H [facility] Rx#: [id number] Merrem 500 MG In Water for inj. 10 / 10 (sterile) 10 ML @ 200 mls/hr IVP Q8H [facility] Rx#:[id number] Oral 60 / 60 Output: Urine 1450 / 1450 Other: Meal NPO # Voids 2 1 Blood Glucose* 149 155 143 - Labs 06/17/17 06:18 06/17/17 06:18 Diabetes panel 06/17/17 Range/Units 06:18 Sodium 133 L (136-145) mEq/L Potassium 3.9 (3.5-5.1) mEq/L Chloride 98 (98-107) mEq/L Carbon Dioxide 28 (23-29) mEq/L BUN 25 H (8-23) mg/dL Creatinine 0.97 (0.60-1.20) mg/dL Glucose 121 H (70-105) mg/dL Calcium 8.2 L (8.6-10.3) mg/dL AST 25 (13-39) Units/L ALT 9 (7-52) Units/L Alkaline Phosphatase 62 (34-104) Units/L Albumin 2.5 L (3.5-5.7) g/dL Calcium panel 06/17/17 Range/Units 06:18 Calcium 8.2 L (8.6-10.3) mg/dL Albumin 2.5 L (3.5-5.7) g/dL Pituitary panel 06/17/17 Range/Units 06:18 Sodium 133 L (136-145) mEq/L Potassium 3.9 (3.5-5.1) mEq/L Chloride 98 (98-107) mEq/L Carbon Dioxide 28 (23-29) mEq/L BUN 25 H (8-23) mg/dL Creatinine 0.97 (0.60-1.20) mg/dL Glucose 121 H (70-105) mg/dL Calcium 8.2 L (8.6-10.3) mg/dL Adrenal panel 06/17/17 Range/Units 06:18 Sodium 133 L (136-145) mEq/L Potassium 3.9 (3.5-5.1) mEq/L Chloride 98 (98-107) mEq/L Carbon Dioxide 28 (23-29) mEq/L BUN 25 H (8-23) mg/dL Creatinine 0.97 (0.60-1.20) mg/dL Glucose 121 H (70-105) mg/dL Calcium 8.2 L (8.6-10.3) mg/dL Total Bilirubin 0.4 (0.3-1.0) mg/dL AST 25 (13-39) Units/L ALT 9 (7-52) Units/L Alkaline Phosphatase 62 (34-104) Units/L Albumin 2.5 L (3.5-5.7) g/dL - VTE Documentation of Mechanical Device: Intermittent pneumatic compression device Consult Discharge Plan - Plan Referrals: Kole Barksdale MD [Primary Care Provider] - 06/08/17 9:45 am
[2017-06-17] MEDS ORDERED: *HR* Midazolam HCl 2 MG/2 ML VIAL IVP ONE (10:56)
[2017-06-17] MEDS ORDERED: *HR* Midazolam HCl 2 MG/2 ML VIAL ONE (11:05)
--- NOTE | 2017-06-17 11:05 | Infectious Disease Progress No ---
Date of Encounter: 06/17/17 Time of Encounter: 11:02 - Assessment and Plan (1) Sepsis Current Visit: Yes Status: Resolved Presented with 3 SIRS criteria. afebrile Leukocytosis: wbc 15.7 bands of 6% Secondary to complicated diverticulitis, and MRSA bacteremia, UTI 2nd to hank albicans Qualifiers: Sepsis type: methicillin resistant Staphylococcus aureus Qualified Code(s) : A41.02 - Sepsis due to Methicillin resistant Staphylococcus aureus (2) Perforated diverticulum Current Visit: Yes Status: Acute Patient presented with acute onset of sharp abdominal pain. Has history of sigmoid diverticulitis. CT abdomen on 05/29 showed pneumoperitoneum with diverticulitis of sigmoid colon. Patient underwent exploratory celiotomy with sigmoid colectomy on 06/04/17. She had a PICC line and subclavian CVC placed and confirmed by chest x-ray on . Patient was also started on Cipro and Flagyl on 05/29. patient became febrie 06/09, with worsening leukocytosis and antibiotics were broadened to vancomycin and cefepime and Flagyl as continued. blood Cultures on are negative. fever of 102.1 on 06/11/17 and primary team started patient on Micafungin 100mg daily. CT abdomen/pelvis 06/11 increasing fluid collections along abdominal incision, and multiloculated fluid loculations throughout the abdomen and pelvis increased in size and organizing, decreased pneumoperitoneum 06/14/18 micafungin d/c and patient started on diflucan CT 18 notes increased size of abscess to drain 0.7 cm within the abdomen. Worsening right hydronephrosis. An worsening seroma below incision measuring 4.1 x 5.6 cm. Continues to have right upper quadrant pain. Plan as per surgery and primary team is to have IR drain abscess. According to surgery's note patient is now started on meropenem 500 mg every 8 hours. Cefepime and Flagyl has been discontinued. Plan: Continue meropenem and Diflucan. Antibiotic duration depends on clinical picture (3) MRSA bacteremia Current Visit: Yes Status: Acute Complicated MRSA bacteremia patient had left knee prosthetic joint Blood cultures from 06/08 from subclavian CVC and PICC line are positive for MRSA. Patient started on vancomycin and cefepime on 06/08 Since starting vancomycin patient's white blood cell count has improved from 15.1-10.9. Last trough of vancomycin was 18.3. Patient had repeat blood cultures drawn CvC, PICC and peripheral 06/10/17 all negative x6. PICC line culture of tip negative TTE: LVEF 65-70% mild tricuspid regurgiations, no vavular vegetations are noted vanc trough 17 kidney function stable Plan: Continue vancomycin mg daily. Antibiotic duration will be determined by results of EMILIE, which patient will obtain once deemed by primary team to be stable for procedure. Noted surgery note to remove subclavian CVC and replace PICC line. (4) Hypoxia Current Visit: Yes Status: Acute patient requiring O2 supplementation since being admitted O2 requirement 2L on lung exam clear anteriorly CXR 06/10/17 negative for pleural effusion, consolidation. Free air under the right hemidiaphragm noted again unchanged. sob unchanged from yesterday plan as per primary (5) Hypothyroidism Current Visit: Yes Status: Chronic As per primary. Qualifiers: Hypothyroidism type: acquired Qualified Code(s): E03.9 - Hypothyroidism, unspecified (6) UTI (urinary tract infection) Current Visit: Yes Status: Acute 06/13 urine culture Hank albicans harry d/c patient reports urge incontinence continue: diflucan 400mg daily Qualifiers: Urinary tract infection type: acute cystitis Hematuria presence: without hematuria Qualified Code(s): N30.00 - Acute cystitis without hematuria (7) Hydronephrosis Current Visit: Yes Status: Acute Discovered on CT abdomen 06/02 which showed right hydroureter with right ureteritis and bilateral pyelitis Underwent on 06/04/17 right ureteral stent placement and left ureteral catheter placement by urology. Patient has had 2 urine cultures which have been negative for growth. Urinalysis does not indicate any signs of infection. Patient has a Harry catheter out pitting light red urine. Likely secondary to urologic procedure. Patient is on broad-spectrum antibiotics, vancomycin, cefepime which will cover urinary tract infection. Repeat CT abdomen and pelvis on 06/07 showed improvement of right hydronephrosis and stable stent placement. Repeat CT at 06/16/2017 shows worsening right hydronephrosis. Urology has been notified. Qualifiers: Hydronephrosis type: other Qualified Code(s): N13.39 - Other hydronephrosis (8) HTN (hypertension) Current Visit: Yes Status: Chronic controlled. Qualifiers: Hypertension type: essential hypertension Qualified Code(s): I10 - Essential (primary) hypertension (9) DVT prophylaxis Current Visit: Yes Status: Acute heparin SQ - Subjective Interval history: Patient resting comfortably in bed. Underwent CT abdomen/pelvis showed worsening seroma below incision 4.1 x 5.6 cm. In the 9.7 cm abscess within the abdomen. Also showed worsening right hydronephrosis. Patient reports continued abdominal pain in the right upper quadrant. She had a bowel movement this morning. Patient had bloody drainage per incision overnight and currently incision is dressed. She continues to have shortness of breath but is stable. She denies fevers, chills, chest pain. Infect Dis PN-Objective Data - Labs CBC & Chem 7: 06/17/17 06:18 06/17/17 06:18 Labs: Laboratory Results - last 24 hr 06/16/17 06/16/17 06/16/17 08:21 11:11 15:33 WBC RBC Hgb Hct MCV MCH MCHC RDW Plt Count MPV Seg Neutrophils % Band Neutrophils % Lymphocytes % Monocytes % Metamyelocytes % Myelocytes % Neutrophils # Lymphocytes # Monocytes # Nucleated RBCs/100 WBC Toxic Granulation Platelet Estimate Polychromasia PT INR Sodium Potassium Chloride Carbon Dioxide BUN Creatinine Est GFR ( Amer) Est GFR (Non-Af Amer) BUN/Creatinine Ratio Glucose POC Glucose 135 H 194 H 145 H Calculated Osmolality Calcium Total Bilirubin AST ALT Alkaline Phosphatase Serum Total Protein Albumin Globulin Albumin/Globulin Ratio 06/16/17 06/17/17 06/17/17 20:09 00:18 04:20 WBC RBC Hgb Hct MCV MCH MCHC RDW Plt Count MPV Seg Neutrophils % Band Neutrophils % Lymphocytes % Monocytes % Metamyelocytes % Myelocytes % Neutrophils # Lymphocytes # Monocytes # Nucleated RBCs/100 WBC Toxic Granulation Platelet Estimate Polychromasia PT INR Sodium Potassium Chloride Carbon Dioxide BUN Creatinine Est GFR ( Amer) Est GFR (Non-Af Amer) BUN/Creatinine Ratio Glucose POC Glucose 149 H 156 H 155 H Calculated Osmolality Calcium Total Bilirubin AST ALT Alkaline Phosphatase Serum Total Protein Albumin Globulin Albumin/Globulin Ratio 06/17/17 06/17/17 06/17/17 06:18 06:18 06:18 WBC 15.7 H RBC 2.84 L Hgb 8.5 L Hct 26.5 L MCV 93.3 MCH 29.9 MCHC 32.1 RDW 14.4 Plt Count 455 H MPV 8.8 L Seg Neutrophils % 70.0 Band Neutrophils % 6.0 H Lymphocytes % 14.0 Monocytes % 6.0 Metamyelocytes % 2.0 H Myelocytes % 2.0 H Neutrophils # 11.9 H Lymphocytes # 2.2 Monocytes # 0.9 Nucleated RBCs/100 WBC 0.2 H Toxic Granulation Present A Platelet Estimate Slight increase H Polychromasia 1+ A PT 16.4 H INR 1.5 Sodium 133 L Potassium 3.9 Chloride 98 Carbon Dioxide 28 BUN 25 H Creatinine 0.97 Est GFR ( Amer) > 60 Est GFR (Non-Af Amer) 58 L BUN/Creatinine Ratio 26 Glucose 121 H POC Glucose Calculated Osmolality 282 Calcium 8.2 L Total Bilirubin 0.4 AST 25 ALT 9 Alkaline Phosphatase 62 Serum Total Protein 7.1 Albumin 2.5 L Globulin 4.6 H Albumin/Globulin Ratio 0.5 L 06/17/17 08:18 WBC RBC Hgb Hct MCV MCH MCHC RDW Plt Count MPV Seg Neutrophils % Band Neutrophils % Lymphocytes % Monocytes % Metamyelocytes % Myelocytes % Neutrophils # Lymphocytes # Monocytes # Nucleated RBCs/100 WBC Toxic Granulation Platelet Estimate Polychromasia PT INR Sodium Potassium Chloride Carbon Dioxide BUN Creatinine Est GFR ( Amer) Est GFR (Non-Af Amer) BUN/Creatinine Ratio Glucose POC Glucose 143 H Calculated Osmolality Calcium Total Bilirubin AST ALT Alkaline Phosphatase Serum Total Protein Albumin Globulin Albumin/Globulin Ratio Cultures: Cultures 06/13/17 04:38 Urine Culture - Preliminary Urine,[place] Hank albicans Yeast Species 06/10/17 05:45 Blood Culture - Final Peripheral Central Cath, Picc No growth. 06/10/17 05:41 Blood Culture - Final Peripheral Venipuncture No growth. 06/10/17 11:35 Blood Culture - Final Peripheral Central Cath, Picc No growth. 06/10/17 05:45 Blood Culture - Final Central Venous Catheter No growth. 06/10/17 05:46 Blood Culture - Final Peripheral Venipuncture No growth. 06/10/17 11:35 Blood Culture - Final Central Venous Catheter No growth. 06/12/17 20:08 Blood Culture - Preliminary Peripheral Venipuncture No growth. 06/10/17 16:40 Catheter Tip Culture - Final Intravenous or Arterial Cath No growth. 06/08/17 06:33 Blood Culture - Final Peripheral Central Cath, Picc Methicillin Resistant S.aureus 06/08/17 06:33 Blood Culture - Final Central Venous Catheter Methicillin Resistant S.aureus 06/08/17 04:20 Urine Culture - Final Urine,Clean Catch No significant growth. 06/03/17 09:25 Urine Culture - Final Urine,Harry [place] No growth. 05/30/17 09:56 Blood Culture - Final Peripheral Venipuncture No growth. 05/30/17 10:10 Blood Culture - Final Peripheral Venipuncture No growth. Serology 06/08/17 06/08/17 Range/Units 06:33 04:20 Ur Specimen Adequacy Urine Color Dark Yellow (Yellow) Urine Clarity Clear (Clear) Urine pH 6.0 (5.0-8.0) pH Units Ur Specific [place] > 1.030 H (1.010-1.025) Urine Protein 100 H (Neg-Trace) mg/dL Urine Glucose (UA) 100 H (Normal) mg/dL Urine Ketones Negative (Negative) mg/dL Urine Blood Large H (Negative) Urine Nitrite Negative (Negative) Urine Bilirubin Negative (Negative) Urine Urobilinogen Normal (Normal) mg/dL Ur Leukocyte Esterase Small H (Negative) Ur Culture Indicated? YES A (NO) A. baumannii (PCR) Not Detected (Not Detect) Hank albicans (PCR) Not Detected (Not Detect) C. glabrata (PCR) Not Detected (Not Detect) C. krusei (PCR) Not Detected (Not Detect) C. parapsilosis (PCR) Not Detected (Not Detect) C. tropicalis (PCR) Not Detected (Not Detect) Enterobacteriac sp PCR Not Detected (Not Detect) E. cloacae complex PCR Not Detected (Not Detect) Enterococcus sp PCR Not Detected (Not Detect) E. coli (PCR) Not Detected (Not Detect) H. influenzae (PCR) Not Detected (Not Detect) Klebsiella oxytoca PCR Not Detected (Not Detect) Klebsiella pneumoniae Not Detected (Not Detect) List. monocytogenes PCR Not Detected (Not Detect) N. meningitidis (PCR) Not Detected (Not Detect) Proteus species (PCR) Not Detected (Not Detect) Serratia marcescens PCR Not Detected (Not Detect) Staphylococcus sp PCR DETECTED A (Not Detect) Staph aureus (PCR) DETECTED A (Not Detect) mecA-Methicil Res Gene DETECTED A (Not Detect) Streptococcus sp PCR Not Detected (Not Detect) Group A Strep DNA Not Detected (Not Detect) Group B Strep (PCR) Not Detected (Not Detect) Strep pneumoniae (PCR) Not Detected (Not Detect) P. aeruginosa (PCR) Not Detected (Not Detect) Bryant/B-Vanco Res Genes Not Detected (Not Detect) KPC (blaKPC) Detect PCR Not Detected (Not Detect) - Impressions Impressions Abdomen/Pelvis CT 06/16/17 14:30 IMPRESSION: 1. Multiple loculated air-fluid collections throughout the abdomen and pelvis. The largest collection has increased in size, measuring up to 9.7 cm, within the anterior abdomen. Given the increasing air of this collection, infection is suspected. The remainder of the fluid collections are similar, but are also likely abscesses. No evidence of extravasated oral contrast. 2. Moderate pneumoperitoneum, similar to the previous exam. 3. Stable induration of the pelvis, suspicious for peritonitis. 4. Moderate right hydronephrosis, increased from the previous exam, with double-J right ureteral stent in place. This may represent a partially occluded ureteral stent. Correlation with the patient's renal function tests is suggested. 5. Increase in size of a 4.1 x 5.6 cm simple fluid collection within the soft tissues beneath the laparotomy enedina, likely an enlarging seroma. Results verbally discussed with Dr. Machuca at 16:00 on 06/16/2017 D/ / 06/16/2017 15:46:36 Leland Santiago MD / hermelinda Interpreting Provider: Leland Santiago MD Exam - Constitutional Vitals: Temp Pulse Resp BP Pulse Ox 98.5 F 98 16 134/77 97 06/17/17 07:56 06/17/17 07:56 06/17/17 09:05 06/17/17 07:56 06/17/17 09:05 - Additional findings Additional findings: General: Obese. Mild distress. HEENT: thrush continues to improve/almost resolved Heart: Regular rate and rhythm with no murmur Lungs: Clear to auscultation bilaterally anteriorly, diminished Abdomen: Soft, tender in RUQ with mild palpation. non-tender along incision. Incision dressed currently. Skin: warm and dry Extremities: Absent pedal edema, Neuro: Alert and oriented 3 Vascular: Pedal and radial pulses 2 out of 4 Lines: Left subclavian CVC without signs of infection. Right PICC without signs of infection. - VTE Documentation of Mechanical Device: Intermittent pneumatic compression device Consult Discharge Plan - Plan Referrals: Kole Barksdale MD [Primary Care Provider] - 06/08/17 9:45 am - Attending Attestation I examined this patient and my medical decision-making was reviewed with the Resident Physician. I agree with the documented findings, disposition and treatment plan as described except to the extent set forth below. patient's Abx were changed by surgery team will continue to observe d/w mirco lab (oren), await cultures to finalize few Gram positive cocci and few yeast and few Gram positive rods
--- NOTE | 2017-06-17 11:47 | IR Procedure Note ---
Date of procedure: 06/17/17 Consent Obtained: Written consent Timeout: Correct patient and procedure verified, Correct site verified, Time out performed, Skin prep completed Local anesthetic: Lidocaine 1% Indications: Abdominal abscess Procedure Performed: CT guided drainage Was there an senior agricultural assistant present: No Results/Findings: 12 F APD, 200 ml purulent fluid removed Estimated blood loss (cc): 0 Complications: None; Tolerated procedure well Post Procedure Treatment Plan: Monitor on floor Specimen: Sample sent
[2017-06-17] MEDS: Furosemide 40 MG/4 ML VIAL IVP ONE ×2 (12:44→15:21)
--- NOTE | 2017-06-17 13:04 | Event Note ---
Date of Encounter: 06/17/17 Time of Encounter: 13:[address] gallegos regarding CT results. reviewed films. Im not convinced the pts stent is occluded especially with near normal renal function. other possible etiologies include reflux up the stent (dilate the renal pelvis) and decreased peristalsis from previous surgery/abscess/etc. will likely observe unless condition changes. will evaluate pt in ICU this afternoon. Moderate right hydronephrosis, increased from the previous exam, with double-J right ureteral stent in place. This may represent a partially occluded ureteral stent. Correlation with the patient's renal function tests is suggested.
[2017-06-17] MEDS: Meropenem 500 MG in Water for inj. (sterile) 20 ML 10 ML IVP SCH ×2 (13:53→21:33)
[2017-06-17] MEDS: Clinimix E 5%-15% SOLUTION 2,000 ML, Parenteral Amino Acid 10% 200 ML with MVI, adult ... IVC SCH (18:02)
[2017-06-17] MEDS: Vancomycin 1,750 MG in D5% in Water 500 ML IVPB SCH (21:31)
[2017-06-18] MEDS: Albuterol 2.5 MG/3 ML NEBULIZER IH SCH ×7 (00:06→23:12)
[2017-06-18] MEDS: Insulin LISPRO 300 UNITS/3 ML VIAL SQ SCH ×7 (00:40→20:36)
[2017-06-18] MEDS ORDERED: Furosemide 40 MG/4 ML VIAL IVP ONE (04:00)
[2017-06-18] MEDS: Meropenem 500 MG in Water for inj. (sterile) 20 ML 10 ML IVP SCH ×3 (04:58→21:48)
[2017-06-18] MEDS: Levothyroxine Sodium 100 MCG VIAL IVP SCH (04:59)
[2017-06-18 06:24] LABS: BUN/Creatinine Ratio 27 (6-26); Blood Urea Nitrogen 25 mg/dL (8-23); Calcium 8.1 mg/dL (8.6-10.3); Carbon Dioxide 30 mEq/L (23-29); Chloride 94 mEq/L (98-107); Glucose 167 mg/dL (70-105); Osmolality,Calculated 278 (280-300); Potassium 3.8 mEq/L (3.5-5.1); Sodium 130 mEq/L (136-145); eGFR For African Americans > 60 (> 60); eGFR For Non-African Americans > 60 (> 60)
[2017-06-18 06:31] LABS: Basophils # 0.1 K/mcL (0.0-0.2); Basophils % 0.7 %; Eosinophils # 0.2 K/mcL (0.0-0.6); Eosinophils % 1.8 %; Hematocrit 27.9 % (35.3-44.9); Hemoglobin 8.8 g/dL (11.5-15.4); Lymphocytes # 1.5 K/mcL (0.6-4.6); Lymphocytes % 14.9 %; Mean Corpuscular HGB Conc 31.5 g/dL (31.6-35.5); Mean Corpuscular Hemoglobin 29.2 pg (28.0-33.3); Mean Corpuscular Volume 92.7 fL (83.0-100.0); Mean Platelet Volume 8.9 fL (9.4-12.4); Neutrophils # 6.7 K/mcL (1.6-8.9); Nucleated Red Blood Cells 0.3 /100 WBC (0); Platelet Count 453 K/mcL (140-400); Red Blood Count 3.01 M/mcL (3.82-4.97); Red Cell Distribution Width 14.3 % (11.5-14.5); Segmented Neutrophils % 66.6 %
[2017-06-18 06:57] LABS: Platelet Estimate Normal (Normal)
[2017-06-18] MEDS: Insulin DETEMIR 100 UNIT/ML X5UNITS SQ SCH ×2 (09:32→20:42)
[2017-06-18] MEDS: Nystatin SUSP 5 ML UD.LIQ PO SCH ×4 (09:33→20:42)
[2017-06-18] MEDS: Fluconazole 400 MG/200 ML IVPB SCH (09:33)
[2017-06-18] MEDS: Acetaminophen 325 MG TABLET PO PRN (09:33)
[2017-06-18] MEDS: Pantoprazole 40 MG VIAL IVP SCH (09:33)
--- NOTE | 2017-06-18 09:51 | Infectious Disease Progress No ---
Date of Encounter: 06/18/17 Time of Encounter: 09:48 - Assessment and Plan (1) Sepsis Current Visit: Yes Status: Resolved Presented with 3 SIRS criteria. Febrile, tachycardic overnight. Leukocytosis resolved. Secondary to complicated diverticulitis, and MRSA bacteremia, UTI 2nd to hank albicans Qualifiers: Sepsis type: methicillin resistant Staphylococcus aureus Qualified Code(s) : A41.02 - Sepsis due to Methicillin resistant Staphylococcus aureus (2) Perforated diverticulum Current Visit: Yes Status: Acute Patient presented with acute onset of sharp abdominal pain. Has history of sigmoid diverticulitis. CT abdomen on 05/29 showed pneumoperitoneum with diverticulitis of sigmoid colon. Patient underwent exploratory celiotomy with sigmoid colectomy on 06/04/17. She had a PICC line and subclavian CVC placed and confirmed by chest x-ray on . Patient was also started on Cipro and Flagyl on 05/29. patient became febrie 06/09, with worsening leukocytosis and antibiotics were broadened to vancomycin and cefepime and Flagyl as continued. blood Cultures on are negative. fever of 102.1 on 06/11/17 and primary team started patient on Micafungin 100mg daily. CT abdomen/pelvis 06/11 increasing fluid collections along abdominal incision, and multiloculated fluid loculations throughout the abdomen and pelvis increased in size and organizing, decreased pneumoperitoneum 06/14/18 micafungin d/c and patient started on diflucan CT 18 notes increased size of abscess to drain 0.7 cm within the abdomen. Worsening right hydronephrosis. An worsening seroma below incision measuring 4.1 x 5.6 cm. Status post percutaneous drainage of abdominal abscess by IR 06/17/2017: Cultures have grown gram positive rods, gram-positive cocci and few yeast. Abdominal pain is considerably improved. Patient is percutaneous catheter draining purulent material from abdominal abscess Patient was febrile and tachycardic. Repeat blood cultures ordered by primary team Creatinine clearance 90 Plan: Continue meropenem and Diflucan. Antibiotic duration depends on clinical picture (3) MRSA bacteremia Current Visit: Yes Status: Acute Complicated MRSA bacteremia patient had left knee prosthetic joint Blood cultures from 06/08 from subclavian CVC and PICC line are positive for MRSA. Patient started on vancomycin and cefepime on 06/08 Since starting vancomycin patient's white blood cell count has improved from 15.1-10.9. Last trough of vancomycin was 18.3. Patient had repeat blood cultures drawn CvC, PICC and peripheral 06/10/17 all negative x6. PICC line culture of tip negative TTE: LVEF 65-70% mild tricuspid regurgiations, no vavular vegetations are noted vanc trough 17 kidney function stable Plan: Continue vancomycin mg daily. Antibiotic duration will be determined by results of EMILIE, which patient will obtain once deemed by primary team to be stable for procedure. PICC line has been removed. Subclavian CVC still in place. Recommend removing subclavian CVC and inserting PICC line. (4) Hypoxia Current Visit: Yes Status: Acute patient requiring O2 supplementation since being admitted O2 requirement 2L increased to 3 L on lung exam clear anteriorly CXR 06/10/17 negative for pleural effusion, consolidation. Free air under the right hemidiaphragm noted again unchanged. sob unchanged from yesterday plan as per primary (5) UTI (urinary tract infection) Current Visit: Yes Status: Acute 06/13 urine culture Hank albicans harry d/c patient reports urge incontinence continue: diflucan 400mg daily Qualifiers: Urinary tract infection type: acute cystitis Hematuria presence: without hematuria Qualified Code(s): N30.00 - Acute cystitis without hematuria (6) Hydronephrosis Current Visit: Yes Status: Acute Discovered on CT abdomen 06/02 which showed right hydroureter with right ureteritis and bilateral pyelitis Underwent on 06/04/17 right ureteral stent placement and left ureteral catheter placement by urology. Patient has had 2 urine cultures which have been negative for growth. Urinalysis does not indicate any signs of infection. Patient has a Harry catheter out pitting light red urine. Likely secondary to urologic procedure. Patient is on broad-spectrum antibiotics, vancomycin, cefepime which will cover urinary tract infection. Repeat CT abdomen and pelvis on 06/07 showed improvement of right hydronephrosis and stable stent placement. Repeat CT at 06/16/2017 shows worsening right hydronephrosis. Urology reports no additional intervention needed at this point. Qualifiers: Hydronephrosis type: other Qualified Code(s): N13.39 - Other hydronephrosis (7) Hypothyroidism Current Visit: Yes Status: Chronic As per primary. Qualifiers: Hypothyroidism type: acquired Qualified Code(s): E03.9 - Hypothyroidism, unspecified (8) HTN (hypertension) Current Visit: Yes Status: Chronic controlled. Qualifiers: Hypertension type: essential hypertension Qualified Code(s): I10 - Essential (primary) hypertension (9) DVT prophylaxis Current Visit: Yes Status: Acute heparin SQ - Subjective Interval history: Patient reports she had a rough night. She stated her heart rate is 100 and she had a fever. She reports her abdominal pain has improved considerably compared to yesterday. Her shortness of breath is unchanged however overnight her oxygen requirements and increased from 2 to 3L. Patient has a percutaneous tube draining abdominal abscess with output of purulent material. She reports continued urge incontinence, adequate urine output. She reports having a bowel movement this morning I was semisolid. Infect Dis PN-Objective Data - Labs CBC & Chem 7: 06/18/17 05:59 06/18/17 05:59 Labs: Laboratory Results - last 24 hr 06/17/17 06/17/17 06/18/17 12:28 20:13 00:22 WBC RBC Hgb Hct MCV MCH MCHC RDW Plt Count MPV Immature Gran % Seg Neutrophils % Lymphocytes % Monocytes % Eosinophils % Basophils % Neutrophils # Lymphocytes # Monocytes # Eosinophils # Basophils # Nucleated RBCs/100 WBC Platelet Estimate Sodium Potassium Chloride Carbon Dioxide BUN Creatinine Est GFR ( Amer) Est GFR (Non-Af Amer) BUN/Creatinine Ratio Glucose POC Glucose 175 H 169 H Calculated Osmolality Lactic Acid Calcium Vancomycin Trough 14.2 06/18/17 06/18/17 06/18/17 04:34 05:59 05:59 WBC 10.1 RBC 3.01 L Hgb 8.8 L Hct 27.9 L MCV 92.7 MCH 29.2 MCHC 31.5 L RDW 14.3 Plt Count 453 H MPV 8.9 L Immature Gran % 6.0 H Seg Neutrophils % 66.6 Lymphocytes % 14.9 Monocytes % 10.0 Eosinophils % 1.8 Basophils % 0.7 Neutrophils # 6.7 Lymphocytes # 1.5 Monocytes # 1.0 Eosinophils # 0.2 Basophils # 0.1 Nucleated RBCs/100 WBC 0.3 H Platelet Estimate Normal Sodium 130 L Potassium 3.8 Chloride 94 L Carbon Dioxide 30 H BUN 25 H Creatinine 0.92 Est GFR ( Amer) > 60 Est GFR (Non-Af Amer) > 60 BUN/Creatinine Ratio 27 H Glucose 167 H POC Glucose 149 H Calculated Osmolality 278 L Lactic Acid Calcium 8.1 L Vancomycin Trough 06/18/17 06/18/17 05:59 07:55 WBC RBC Hgb Hct MCV MCH MCHC RDW Plt Count MPV Immature Gran % Seg Neutrophils % Lymphocytes % Monocytes % Eosinophils % Basophils % Neutrophils # Lymphocytes # Monocytes # Eosinophils # Basophils # Nucleated RBCs/100 WBC Platelet Estimate Sodium Potassium Chloride Carbon Dioxide BUN Creatinine Est GFR ( Amer) Est GFR (Non-Af Amer) BUN/Creatinine Ratio Glucose POC Glucose 186 H Calculated Osmolality Lactic Acid 1.2 Calcium Vancomycin Trough Cultures: Cultures 06/12/17 20:08 Blood Culture - Final Peripheral Venipuncture No growth. 06/13/17 04:38 Urine Culture - Final Urine,Harry [place] Hank albicans Hank glabrata 06/17/17 11:20 Body Fluid Culture - Preliminary Other-Specify in Comments 06/10/17 05:45 Blood Culture - Final Peripheral Central Cath, Picc No growth. 06/10/17 05:41 Blood Culture - Final Peripheral Venipuncture No growth. 06/10/17 11:35 Blood Culture - Final Peripheral Central Cath, Picc No growth. 06/10/17 05:45 Blood Culture - Final Central Venous Catheter No growth. 06/10/17 05:46 Blood Culture - Final Peripheral Venipuncture No growth. 06/10/17 11:35 Blood Culture - Final Central Venous Catheter No growth. 06/10/17 16:40 Catheter Tip Culture - Final Intravenous or Arterial Cath No growth. 06/08/17 06:33 Blood Culture - Final Peripheral Central Cath, Picc Methicillin Resistant S.aureus 06/08/17 06:33 Blood Culture - Final Central Venous Catheter Methicillin Resistant S.aureus 06/08/17 04:20 Urine Culture - Final Urine,Clean Catch No significant growth. 06/03/17 09:25 Urine Culture - Final Urine,Harry Port No growth. 05/30/17 09:56 Blood Culture - Final Peripheral Venipuncture No growth. 05/30/17 10:10 Blood Culture - Final Peripheral Venipuncture No growth. Serology 06/08/17 06/08/17 Range/Units 06:33 04:20 Ur Specimen Adequacy Urine Color Dark Yellow (Yellow) Urine Clarity Clear (Clear) Urine pH 6.0 (5.0-8.0) pH Units Ur Specific [place] > 1.030 H (1.010-1.025) Urine Protein 100 H (Neg-Trace) mg/dL Urine Glucose (UA) 100 H (Normal) mg/dL Urine Ketones Negative (Negative) mg/dL Urine Blood Large H (Negative) Urine Nitrite Negative (Negative) Urine Bilirubin Negative (Negative) Urine Urobilinogen Normal (Normal) mg/dL Ur Leukocyte Esterase Small H (Negative) Ur Culture Indicated? YES A (NO) A. baumannii (PCR) Not Detected (Not Detect) Hank albicans (PCR) Not Detected (Not Detect) C. glabrata (PCR) Not Detected (Not Detect) C. krusei (PCR) Not Detected (Not Detect) C. parapsilosis (PCR) Not Detected (Not Detect) C. tropicalis (PCR) Not Detected (Not Detect) Enterobacteriac sp PCR Not Detected (Not Detect) E. cloacae complex PCR Not Detected (Not Detect) Enterococcus sp PCR Not Detected (Not Detect) E. coli (PCR) Not Detected (Not Detect) H. influenzae (PCR) Not Detected (Not Detect) Klebsiella oxytoca PCR Not Detected (Not Detect) Klebsiella pneumoniae Not Detected (Not Detect) List. monocytogenes PCR Not Detected (Not Detect) N. meningitidis (PCR) Not Detected (Not Detect) Proteus species (PCR) Not Detected (Not Detect) Serratia marcescens PCR Not Detected (Not Detect) Staphylococcus sp PCR DETECTED A (Not Detect) Staph aureus (PCR) DETECTED A (Not Detect) mecA-Methicil Res Gene DETECTED A (Not Detect) Streptococcus sp PCR Not Detected (Not Detect) Group A Strep DNA Not Detected (Not Detect) Group B Strep (PCR) Not Detected (Not Detect) Strep pneumoniae (PCR) Not Detected (Not Detect) P. aeruginosa (PCR) Not Detected (Not Detect) Bryant/B-Vanco Res Genes Not Detected (Not Detect) KPC (blaKPC) Detect PCR Not Detected (Not Detect) - Impressions Impressions Needle Aspiration CT 06/17/17 00:00 IMPRESSION: 1. CT guided drainage of abdominal fluid collection as discussed above. D/ / Alvino Maradiaga MD / Alvino Maradiaga MD Interpreting Provider: Alvino Maradiaga MD Exam - Constitutional Vitals: Temp Pulse Resp BP Pulse Ox 100.5 F H 102 16 126/68 98 06/18/17 07:59 06/18/17 07:59 06/18/17 08:08 06/18/17 07:59 06/18/17 08:08 - Additional findings Additional findings: General: Obese. Mild distress. HEENT: thrush resolved Heart: Regular rate and rhythm with no murmur Lungs: Clear to auscultation bilaterally anteriorly, diminished Abdomen: Soft, tender in RUQ with mild palpation improve conservatively from yesterday. Incision dressed currently. Percutaneous catheter draining abscess. Skin: warm and dry Extremities: Absent pedal edema, Neuro: Alert and oriented 3 Vascular: Pedal and radial pulses 2 out of 4 Lines: Left subclavian CVC without signs of infection. - VTE Documentation of Mechanical Device: Intermittent pneumatic compression device Consult Discharge Plan - Plan Referrals: Kole Barksdale MD [Primary Care Provider] - Michele Machuca MD [Non-Partnered Physician] - - Attending Attestation I examined this patient and my medical decision-making was reviewed with the Resident Physician. I agree with the documented findings, disposition and treatment plan as described except to the extent set forth below. doing well clinically 20 ml of serosanguinous material from the MARIUSZ drain some oozing from around the distal enedina C albicans and Glabrata in the Urine, concern that same organisms are in the abscess? Glabrata has a tendency to be resistant to Fluconazole will switch to micafungin continue Vancomycin for MRSA bacteremia continue flagyl and cefepime - no benefit to use meropenem over cefepime/flagyl combo since no proof of ESBL await cultures to finalize
[2017-06-18] MEDS: Clinimix E 5%-15% SOLUTION 2,000 ML, Parenteral Amino Acid 10% 200 ML with MVI, adult ... IVC SCH ×2 (09:55→19:24)
--- NOTE | 2017-06-18 10:40 | Internal Med Progress Note ---
<Chaitanya Mcgrath - Last Filed: 06/18/17 10:51> Date of Encounter: 06/18/17 Time of Encounter: 10:38 - Assessment and plan (1) Perforated diverticulum Current Visit: Yes Status: Acute Assessment and plan: POD #14 s/p sigmoid colectomy with stapled colocolonic anastomosis She did have reduced white count to 10 from 15 but was slightly febrile at 100.7 s/p procedure; will collect additional blood cultures Pain better controlled with FOOD CHEMIST dilaudid Phenergren and Zofran PRN nausea Surgery will advanced her to full liquids today (2) MRSA bacteremia Current Visit: Yes Status: Acute Assessment and plan: Blood cultures positive for MRSA bacteremia, with suspected source is PICC line vs central venous line Febrile overnight, repeat cultures collected as above ID consulted, appreciate recommendations Will plan to remove CVC and replace PICC line later today or tomorrow Has been on Vancomycin day 11; Meropenem started 06/16 ID as suspicion of endocarditis, meets one major and one minor Herrera criteria; will need EMILIE prior to discharge TTE shows ejection fraction of 65-70% with mild tricuspid regurgitation, no vegetations noted (3) Abdominal abscess Current Visit: Yes Status: Acute Assessment and plan: CT 06/16 revealed enlarging fluid collections suspicious for organizing abscess IR performed percutaneous drainage of abscess 06/17 Awaiting cultures from fluid (4) Acute respiratory failure with hypoxia Current Visit: Yes Status: Acute Assessment and plan: Likely secondary to atelectasis s/p surgery in setting of OHS; she is clinically stable Currenlty on 2 L oxygen but saturating well in the 90's; wean as tolerated Continue incentive spirometry while seated (5) Acute worsening of stage 3 chronic kidney disease Current Visit: Yes Status: Resolved Assessment and plan: Cr back to her baseline Will continue to monitor Cr and electrolytes (6) HTN (hypertension) Current Visit: Yes Status: Chronic Assessment and plan: BP well controlled at this visit recently Hold Losartan for now as her pressures have been stable Continue hydralazine IV PRN hypertension Qualifiers: Hypertension type: essential hypertension Qualified Code(s): I10 - Essential (primary) hypertension (7) Hypothyroidism Current Visit: Yes Status: Chronic Assessment and plan: Continue IV levothyroxine, will transition to PO once she better tolerates orally Qualifiers: Hypothyroidism type: acquired Qualified Code(s): E03.9 - Hypothyroidism, unspecified (8) Cystitis Current Visit: Yes Status: Acute Assessment and plan: ABD CT with thickening of bladder wall and questionable incomplete distention versus cystitis with mild hydronephrosis Continue vanc, radha as above Urology placed ureteral stent during surgery. Should follow up with urology as outpatient for stent removal 3-4 weeks after procedure Urine culture positive for hank, currently on Fluconazole (9) Hydronephrosis Current Visit: Yes Status: Acute Assessment and plan: CT 06/16 showed enlarging hydronephrosis despite stent placement Urology did not feel like intervention as necessary as kidney function has remained stable Qualifiers: Hydronephrosis type: other Qualified Code(s): N13.39 - Other hydronephrosis (10) Obesity Current Visit: Yes Status: Chronic Assessment and plan: BMI 49. lifestyle modifications encouraged as outpatient Qualifiers: Obesity type: due to excess calories Obesity classification: adult class 3 (BMI >= 40) Serious obesity comorbidity presence: without serious comorbidity Body mass index: BMI 45.0-49.9 Qualified Code(s): E66.01 - Morbid (severe) obesity due to excess calories; Z68.42 - Body mass index (BMI) 45.0-49.9, adult ; Z68.42 - Body mass index (BMI) 45.0-49.9, adult; Z68.42 - Body mass index (BMI ) 45.0-49.9, adult; Z68.42 - Body mass index (BMI) 45.0-49.9, adult (11) DVT prophylaxis Current Visit: Yes Status: Acute Assessment and plan: Continue SCDs - Subjective Interval history: Pt seen and examined. She states her abdominal pain and nausea have improved significantly. She did have a fever overnight but states her breathing is better today. She states her procedure to drain the abscess helped her pain out significantly. - Constitutional Vitals: Temp Pulse Resp BP Pulse Ox 100.5 F H 102 16 126/68 98 06/18/17 07:59 06/18/17 07:59 06/18/17 08:08 06/18/17 07:59 06/18/17 08:08 General appearance: Present: cooperative, pleasant, no acute distress, obese, answers questions appropriately - Head Head exam: Present: atraumatic, normocephalic - Eye Eye exam: Present: PERRL, conjuntiva pink, sclera anicteric - Neck Neck exam general surgery: Present: supple, trachea midline. Absent: lymphadenopathy - Respiratory Respiratory exam: Present: decreased breath sounds. Absent: accessory muscle use, rales, rhonchi, wheezes - Cardiovascular Cardiovascular exam: Present: RRR, +S1, +S2. Absent: diastolic murmur, gallop, rubs, systolic murmur - GI/Abdominal GI/Abdominal exam: Present: normal bowel sounds, soft, no peritoneal signs. Absent: distended, tenderness - Extremities Exam Extremities exam: Present: warm, radial pulses palpable and symmetrical. Absent : calf tenderness, cyanotic, pedal edema - Neurological Exam Neurological exam: Present: alert, no focal deficits. Absent: facial droop, speech deficit - Skin Skin exam: Present: dry, intact Internal Medicine: Result - Labs CBC & Chem 7: 06/18/17 05:59 06/18/17 05:59 Labs: Short CBC 06/18/17 Range/Units 05:59 WBC 10.1 (4.3-11.1) K/mcL Hgb 8.8 L (11.5-15.4) g/dL Hct 27.9 L (35.3-44.9) % Plt Count 453 H (140-400) K/mcL Neutrophils # 6.7 (1.6-8.9) K/mcL BMP 06/18/17 05:59 Sodium 130 L Potassium 3.8 Chloride 94 L Carbon Dioxide 30 H BUN 25 H Creatinine 0.92 Glucose 167 H Calcium 8.1 L - ABG Interpretation ABG results: ABG ABG pH 7.43 pH Units (7.32-7.45) 06/08/17 04:24 ABG pCO2 35 mmHg (35-45) 06/08/17 04:24 ABG pO2 72 mmHg (85-104) L 06/08/17 04:24 ABG O2 Saturation 95 % (95-98) 06/08/17 04:24 PT/INR, D-dimer PT 16.4 Seconds (9.4-12.1) H 06/17/17 06:18 - Impressions Impressions Needle Aspiration CT 06/17/17 00:00 IMPRESSION: 1. CT guided drainage of abdominal fluid collection as discussed above. D/ / Alvino Maradiaga MD / Alvino Maradiaga MD Interpreting Provider: Alvino Maradiaga MD - VTE Documentation of Mechanical Device: Intermittent pneumatic compression device Consult Discharge Plan - Plan Referrals: Kole Barksdale MD [Primary Care Provider] - Michele Machuca MD [Non-Partnered Physician] - <Giancarlo Salazar H - Last Filed: 06/18/17 13:21> Date of Encounter: 06/18/17 - Constitutional Vitals: Temp Pulse Resp BP Pulse Ox 97.7 F 85 18 138/77 95 06/18/17 11:49 06/18/17 11:49 06/18/17 11:51 06/18/17 11:49 06/18/17 11:51 Internal Medicine: Result - Labs CBC & Chem 7: 06/18/17 05:59 06/18/17 05:59 Labs: Short CBC 06/18/17 Range/Units 05:59 WBC 10.1 (4.3-11.1) K/mcL Hgb 8.8 L (11.5-15.4) g/dL Hct 27.9 L (35.3-44.9) % Plt Count 453 H (140-400) K/mcL Neutrophils # 6.7 (1.6-8.9) K/mcL BMP 06/18/17 05:59 Sodium 130 L Potassium 3.8 Chloride 94 L Carbon Dioxide 30 H BUN 25 H Creatinine 0.92 Glucose 167 H Calcium 8.1 L - ABG Interpretation ABG results: ABG ABG pH 7.43 pH Units (7.32-7.45) 06/08/17 04:24 ABG pCO2 35 mmHg (35-45) 06/08/17 04:24 ABG pO2 72 mmHg (85-104) L 06/08/17 04:24 ABG O2 Saturation 95 % (95-98) 06/08/17 04:24 PT/INR, D-dimer PT 16.4 Seconds (9.4-12.1) H 06/17/17 06:18 - Attending Attestation EMILIE possibly next week I examined this patient and my medical decision-making was reviewed with the Resident Physician. I agree with the documented findings, disposition and treatment plan as described except to the extent set forth below.
--- NOTE | 2017-06-18 11:31 | General Surgery Progress Note ---
Date of Encounter: 06/18/17 Time of Encounter: 10:35 Subjective Narrative: General Surgery - POD #14 Patient feeling better; describes resolution of abdominal pain. Continues to complain of nausea but no emesis. As a result of this nausea she is ingesting very little orally. Maximum temperature 100.7; likely due to a percutaneous drainage of the mid abdominal abscess yesterday; tachycardic with a range of 102-113 Respiratory rate 16-20; blood pressure 126/68. SPO2 on 4 L/m nasal cannula 98% Lungs: Clear; respiratory status seems to be improved post-diuresis Abdomen: Soft, nontender. Purulent drainage from the midline incision is diminished in the last 24 hours. Nursing to remove 4-6 enedina at the drainage site and begin wound care - irrigate wound with 1/2 strength H2O2 and apply dry sterile gauze BID Moderate soft brown stool recorded earlier today Urine output 700 mL for count today is 06/17/17; 1050 mL so far today with Lasix administered this morning Percutaneous drain output 20 mL Laboratories: White count 10.1, with resolution of prior elevated metamyelocytes , myelocytes and neutrophilia. Hemoglobin to 8.8 with hematocrit 27.9 - stable/slightly increased with diuresis Platelet count 453,000 Electrolytes notable for sodium of 130; chloride 94; BUN 25, creatinine 0.92. eGFR >60 Impression/Plan: Postoperative day #14 - status post exploratory celiotomy, sigmoid colectomy with stapled colocolonic anastomosis for acute perforated diverticulitis Status post percutaneous drainage of mid abdominal abscess with resolution of abdominal pain Leukocytosis with persistent neutrophilia resolved following drainage of the mid abdominal abscess. Low-grade temp likely due to the percutaneous manipulation of the intra- abdominal abscess. Repeat blood cultures were ordered and pending. Persistent postoperative nausea with resultant anorexia despite discontinuation Metronidazole. MRSA bacteremia - continue vancomycin, meropenem, and antifungal IV therapy. Reinsert PICC Right upper extremity; remove left CVL. Invasive Line team notified. Anasarca - continue periodic diuresis Begin to taper TPN, advance diet to fulls - discussed with dietary as well as pharmacy in terms of manipulation of the TPN and sliding scale insulin coverage Objective Vital Signs - Last 8 Hours Temp Pulse Resp BP Pulse Ox 06/18/17 08:08 16 98 06/18/17 07:59 100.5 F H 102 20 126/68 94 06/18/17 04:55 16 95 06/18/17 04:52 100.7 F H 113 17 140/70 94 Intake and Output 06/17/17 06/18/17 06/18/17 23:59 07:59 15:59 Intake Total 120 / 120 30 / 30 240 / 240 Output Total 700 / 700 620 / 620 450 / 450 Balance -580 / -580 -590 / -590 -210 / -210 Intake: IV Fluids Merrem 500 MG In Water for inj. (sterile) 10 ML @ 200 mls/hr IVP Q8H [facility] Rx#:[id number] Oral 120 / 120 20 / 20 240 / 240 Output: Urine 700 / 700 600 / 600 450 / 450 Wound Drainage Left Lower Anterior Medial Abdomen Other: Meal Breakfast Stool Size Moderate Stool Consistency liquid soft Stool Color Brown # Urine Diapers 3 Blood Glucose* 157 186 - Labs 06/18/17 05:59 06/18/17 05:59 Diabetes panel 06/18/17 Range/Units 05:59 Sodium 130 L (136-145) mEq/L Potassium 3.8 (3.5-5.1) mEq/L Chloride 94 L (98-107) mEq/L Carbon Dioxide 30 H (23-29) mEq/L BUN 25 H (8-23) mg/dL Creatinine 0.92 (0.60-1.20) mg/dL Glucose 167 H (70-105) mg/dL Calcium 8.1 L (8.6-10.3) mg/dL Calcium panel 06/18/17 Range/Units 05:59 Calcium 8.1 L (8.6-10.3) mg/dL Pituitary panel 06/18/17 Range/Units 05:59 Sodium 130 L (136-145) mEq/L Potassium 3.8 (3.5-5.1) mEq/L Chloride 94 L (98-107) mEq/L Carbon Dioxide 30 H (23-29) mEq/L BUN 25 H (8-23) mg/dL Creatinine 0.92 (0.60-1.20) mg/dL Glucose 167 H (70-105) mg/dL Calcium 8.1 L (8.6-10.3) mg/dL Adrenal panel 06/18/17 Range/Units 05:59 Sodium 130 L (136-145) mEq/L Potassium 3.8 (3.5-5.1) mEq/L Chloride 94 L (98-107) mEq/L Carbon Dioxide 30 H (23-29) mEq/L BUN 25 H (8-23) mg/dL Creatinine 0.92 (0.60-1.20) mg/dL Glucose 167 H (70-105) mg/dL Calcium 8.1 L (8.6-10.3) mg/dL - VTE Documentation of Mechanical Device: Intermittent pneumatic compression device Consult Discharge Plan - Plan Referrals: Kole Barksdale MD [Primary Care Provider] - Michele Machuca MD [Non-Partnered Physician] -
[2017-06-18] MEDS ORDERED: D10% in Water 500 ML IVC PRN (11:48)
[2017-06-18] MEDS: *HR* Heparin 5,000 UNIT/ML VIAL SQ SCH ×2 (12:25→16:06)
[2017-06-18] MEDS: *HR* LORazepam 2 MG/ML VIAL IVP PRN (12:31)
[2017-06-18] MEDS: Ondansetron 4 MG/2 ML VIAL IVP PRN ×3 (12:31→21:48)
[2017-06-18] MEDS: 0.9 % Sodium Chloride 1,000 ML IVC SCH (16:03)
[2017-06-18] MEDS ORDERED: Clinimix E 5%-15% SOLUTION 2,000 ML with MVI, adult with vitamin K 10 ML IVC SCH (17:00)
[2017-06-18] MEDS: Vancomycin 1,750 MG in D5% in Water 500 ML IVPB SCH (20:42)
[2017-06-18] MEDS: *HR* HYDROmorphone 20 MG/20 ML PCA IVC PRN (20:56)
[2017-06-19] MEDS: Acetaminophen 325 MG TABLET PO PRN (00:05)
[2017-06-19] MEDS: Insulin LISPRO 300 UNITS/3 ML VIAL SQ SCH ×7 (00:18→23:40)
[2017-06-19 00:47] LABS: Hematocrit 29.2 % (35.3-44.9); Hemoglobin 9.3 g/dL (11.5-15.4); Mean Corpuscular HGB Conc 31.8 g/dL (31.6-35.5); Mean Corpuscular Hemoglobin 29.7 pg (28.0-33.3); Mean Corpuscular Volume 93.3 fL (83.0-100.0); Mean Platelet Volume 8.9 fL (9.4-12.4); Platelet Count 377 K/mcL (140-400); Red Blood Count 3.13 M/mcL (3.82-4.97); Red Cell Distribution Width 14.5 % (11.5-14.5)
[2017-06-19 01:11] LABS: Chloride 94 mEq/L (98-107); Potassium 4.2 mEq/L (3.5-5.1); Sodium 132 mEq/L (136-145)
[2017-06-19 01:28] LABS: Eosinophils # 0.4 K/mcL (0.0-0.6); Lymphocytes # 1.8 K/mcL (0.6-4.6); Monocytes # 0.2 K/mcL (0.0-1.3); Neutrophils # 6.6 K/mcL (1.6-8.9); Platelet Estimate Normal (Normal); Tear Drop Cells 1+ (Not Present)
[2017-06-19 01:41] LABS: BUN/Creatinine Ratio 28 (6-26); Blood Urea Nitrogen 27 mg/dL (8-23); Calcium 8.4 mg/dL (8.6-10.3); Carbon Dioxide 28 mEq/L (23-29); Glucose 172 mg/dL (70-105); Osmolality,Calculated 283 (280-300); eGFR For African Americans > 60 (> 60); eGFR For Non-African Americans 59 (> 60)
[2017-06-19] MEDS: Albuterol 2.5 MG/3 ML NEBULIZER IH SCH ×6 (04:15→23:21)
[2017-06-19] MEDS: Levothyroxine Sodium 100 MCG VIAL IVP SCH (06:05)
[2017-06-19] MEDS: Meropenem 500 MG in Water for inj. (sterile) 20 ML 10 ML IVP SCH ×3 (06:07→21:13)
[2017-06-19] MEDS: *HR* Heparin 5,000 UNIT/ML VIAL SQ SCH ×2 (06:10→17:30)
--- NOTE | 2017-06-19 07:43 | Urology Progress Note ---
Date of Encounter: 06/19/17 Time of Encounter: 07:41 - Assessment and Plan (1) Hydronephrosis Current Visit: Yes Status: Acute Assessment and plan: I discussed the ct findings with the patient. although it is possible the increased hydro could represent stent malfunction I feel nonobstructive etiologies are more likely. pt was adamantly opposed to any intervention unless absolutely necessary. will observe for now and wait on next imaging study to follow Qualifiers: Hydronephrosis type: other Qualified Code(s): N13.39 - Other hydronephrosis Progress Note Narrative: fever noted overnight. no flank pain. +abd pain. Objective Initial Vital Signs Temp Pulse Resp BP Pulse Ox 98.5 F 98 24 174/84 97 05/29/17 08:22 05/29/17 08:22 05/29/17 08:22 05/29/17 08:22 05/29/17 08:22 - General physical appearance Present: no distress, chronically ill - Psychiatric Present: oriented to time, oriented to person, oriented to place - Labs 06/19/17 00:26 06/19/17 00:26 Diabetes panel 06/19/17 Range/Units 00:26 Sodium 132 L (136-145) mEq/L Potassium 4.2 (3.5-5.1) mEq/L Chloride 94 L (98-107) mEq/L Carbon Dioxide 28 (23-29) mEq/L BUN 27 H (8-23) mg/dL Creatinine 0.96 (0.60-1.20) mg/dL Glucose 172 H (70-105) mg/dL Calcium 8.4 L (8.6-10.3) mg/dL Calcium panel 06/19/17 Range/Units 00:26 Calcium 8.4 L (8.6-10.3) mg/dL Pituitary panel 06/19/17 Range/Units 00:26 Sodium 132 L (136-145) mEq/L Potassium 4.2 (3.5-5.1) mEq/L Chloride 94 L (98-107) mEq/L Carbon Dioxide 28 (23-29) mEq/L BUN 27 H (8-23) mg/dL Creatinine 0.96 (0.60-1.20) mg/dL Glucose 172 H (70-105) mg/dL Calcium 8.4 L (8.6-10.3) mg/dL Adrenal panel 06/19/17 Range/Units 00:26 Sodium 132 L (136-145) mEq/L Potassium 4.2 (3.5-5.1) mEq/L Chloride 94 L (98-107) mEq/L Carbon Dioxide 28 (23-29) mEq/L BUN 27 H (8-23) mg/dL Creatinine 0.96 (0.60-1.20) mg/dL Glucose 172 H (70-105) mg/dL Calcium 8.4 L (8.6-10.3) mg/dL - VTE Documentation of Mechanical Device: Intermittent pneumatic compression device Consult Discharge Plan - Plan Referrals: Kole Barksdale MD [Primary Care Provider] - Michele Machuca MD [Non-Partnered Physician] -
--- NOTE | 2017-06-19 08:38 | Internal Med Progress Note ---
Date of Encounter: 06/19/17 Time of Encounter: 08:36 - Assessment and plan (1) Perforated diverticulum Current Visit: Yes Status: Acute Assessment and plan: Sepsis secondary to perforated diverticulum POD #15 s/p sigmoid colectomy with stapled colocolonic anastomosis Fever 103.2, heart rate 117 Blood cell count has decreased but now is running fevers [employer] dilaudid Phenergren and Zofran PRN nausea Surgery following Send respiratory infection panel, blood cultures (2) MRSA bacteremia Current Visit: Yes Status: Acute Assessment and plan: Blood cultures positive for MRSA bacteremia, with suspected source is PICC line vs central venous line Febrile overnight, repeat cultures collected as above ID consulted, appreciate recommendations replaced PICC line Has been on Vancomycin day 12; Meropenem started 06/16 ID as suspicion of endocarditis, meets one major and one minor Herrera criteria; will need EMILIE prior to discharge TTE shows ejection fraction of 65-70% with mild tricuspid regurgitation, no vegetations noted (3) Abdominal abscess Current Visit: Yes Status: Acute Assessment and plan: CT 06/16 revealed enlarging fluid collections suspicious for organizing abscess IR performed percutaneous drainage of abscess 06/17 Awaiting cultures from fluid (4) Acute respiratory failure with hypoxia Current Visit: Yes Status: Acute Assessment and plan: Likely secondary to atelectasis s/p surgery in setting of OHS; she is clinically stable Currenlty on 2 L oxygen but saturating well in the 90's; wean as tolerated Continue incentive spirometry while seated (5) Acute worsening of stage 3 chronic kidney disease Current Visit: Yes Status: Resolved Assessment and plan: Cr back to her baseline Will continue to monitor Cr and electrolytes (6) HTN (hypertension) Current Visit: Yes Status: Chronic Assessment and plan: BP well controlled at this visit recently Hold Losartan for now as her pressures have been stable Continue hydralazine IV PRN hypertension Qualifiers: Hypertension type: essential hypertension Qualified Code(s): I10 - Essential (primary) hypertension (7) Hypothyroidism Current Visit: Yes Status: Chronic Assessment and plan: Continue IV levothyroxine, will transition to PO once she better tolerates orally Qualifiers: Hypothyroidism type: acquired Qualified Code(s): E03.9 - Hypothyroidism, unspecified (8) Cystitis Current Visit: Yes Status: Acute Assessment and plan: ABD CT with thickening of bladder wall and questionable incomplete distention versus cystitis with mild hydronephrosis Continue vanc, radha as above Urology placed ureteral stent during surgery. Should follow up with urology as outpatient for stent removal 3-4 weeks after procedure Urine culture positive for hank, currently on Fluconazole (9) Hydronephrosis Current Visit: Yes Status: Acute Assessment and plan: CT 06/16 showed enlarging hydronephrosis despite stent placement Urology did not feel like intervention as necessary as kidney function has remained stable Qualifiers: Hydronephrosis type: other Qualified Code(s): N13.39 - Other hydronephrosis (10) Obesity Current Visit: Yes Status: Chronic Assessment and plan: BMI 49. lifestyle modifications encouraged as outpatient Qualifiers: Obesity type: due to excess calories Obesity classification: adult class 3 (BMI >= 40) Serious obesity comorbidity presence: without serious comorbidity Body mass index: BMI 45.0-49.9 Qualified Code(s): E66.01 - Morbid (severe) obesity due to excess calories; Z68.42 - Body mass index (BMI) 45.0-49.9, adult ; Z68.42 - Body mass index (BMI) 45.0-49.9, adult; Z68.42 - Body mass index (BMI ) 45.0-49.9, adult; Z68.42 - Body mass index (BMI) 45.0-49.9, adult - Subjective Interval history: Running fevers again up to 103.2, complaining of a cough and pain everywhere, abdominal discomfort, severe weakness, headache, runny nose - Constitutional Vitals: Temp Pulse Resp BP Pulse Ox 103.2 F H 117 20 149/85 96 06/19/17 06:58 06/19/17 06:58 06/19/17 06:58 06/19/17 06:58 06/19/17 06:58 General appearance: Present: cooperative, A&O X 3, pleasant, no acute distress, obese, answers questions appropriately - Head Head exam: Present: atraumatic, normocephalic - Eye Eye exam: Present: PERRL, conjuntiva pink, sclera anicteric Pupils: Present: PERRL - Neck Neck exam general surgery: Present: supple, trachea midline. Absent: lymphadenopathy Additional comments: Left subclavian central line Right upper extremity PICC line - Respiratory Respiratory exam: Present: CTAB. Absent: accessory muscle use, rales, rhonchi, wheezes - Cardiovascular Cardiovascular exam: Present: RRR, +S1, +S2. Absent: diastolic murmur, gallop, rubs, systolic murmur - GI/Abdominal GI/Abdominal exam: Present: normal bowel sounds, soft, no peritoneal signs. Absent: distended, tenderness Additional comments: Abdominal drain in place Surgical abdominal wounds covered by dressing - Extremities Exam Extremities exam: Present: warm, radial pulses palpable and symmetrical. Absent : calf tenderness, cyanotic, pedal edema Additional comments: +1 pitting edema in both lower extremities - Neurological Exam Neurological exam: Present: CN II-XII intact, oriented X3, no focal deficits. Absent: pronater drift, facial droop, speech deficit - Skin Skin exam: Present: dry, intact Internal Medicine: Result - Labs CBC & Chem 7: 06/19/17 00:26 06/19/17 00:26 Labs: Short CBC 06/19/17 Range/Units 00:26 WBC 9.1 (4.3-11.1) K/mcL Hgb 9.3 L (11.5-15.4) g/dL Hct 29.2 L (35.3-44.9) % Plt Count 377 (140-400) K/mcL Neutrophils # 6.6 (1.6-8.9) K/mcL BMP 06/19/17 00:26 Sodium 132 L Potassium 4.2 Chloride 94 L Carbon Dioxide 28 BUN 27 H Creatinine 0.96 Glucose 172 H Calcium 8.4 L - ABG Interpretation ABG results: ABG ABG pH 7.43 pH Units (7.32-7.45) 06/08/17 04:24 ABG pCO2 35 mmHg (35-45) 06/08/17 04:24 ABG pO2 72 mmHg (85-104) L 06/08/17 04:24 ABG O2 Saturation 95 % (95-98) 06/08/17 04:24 PT/INR, D-dimer PT 16.4 Seconds (9.4-12.1) H 06/17/17 06:18 - VTE Documentation of Mechanical Device: Intermittent pneumatic compression device Consult Discharge Plan - Plan Referrals: Kole Barksdale MD [Primary Care Provider] - Michele Machuca MD [Non-Partnered Physician] -
[2017-06-19] MEDS: Nystatin SUSP 5 ML UD.LIQ PO SCH ×4 (09:25→21:11)
[2017-06-19] MEDS: Insulin DETEMIR 100 UNIT/ML X5UNITS SQ SCH ×2 (09:25→21:10)
[2017-06-19] MEDS: Pantoprazole 40 MG VIAL IVP SCH (09:25)
[2017-06-19] MEDS: 0.9 % Sodium Chloride 1,000 ML IVC SCH ×5 (09:45→21:09)
[2017-06-19 10:27] LABS: Adenovirus Not Detected (Not Detect); Bordetella Pertussis Not Detected (Not Detect); Chlamydophila pneumoniae Not Detected (Not Detect); Coronavirus 229E Not Detected (Not Detect); Coronavirus HKU1 Not Detected (Not Detect); Coronavirus NL63 Not Detected (Not Detect); Coronavirus OC43 Not Detected (Not Detect); Human Metapneumovirus Not Detected (Not Detect); Human Rhinovirus/Enterovirus Not Detected (Not Detect); Influenza A Subtype 2009 H1 Not Detected (Not Detect); Influenza A Untypeable Not Detected (Not Detect); Influenza B Not Detected (Not Detect); Mycoplasma pneumoniae Not Detected (Not Detect); Parainfluenza Virus 1 Not Detected (Not Detect); Parainfluenza Virus 2 Not Detected (Not Detect); Parainfluenza Virus 3 Not Detected (Not Detect); Parainfluenza Virus 4 Not Detected (Not Detect); Respiratory Syncytial Virus Not Detected (Not Detect)
[2017-06-19] MEDS ORDERED: Micafungin 100 MG in 0.9 % Sodium Chloride 100 ML IVPB SCH (10:30)
--- NOTE | 2017-06-19 11:11 | General Surgery Progress Note ---
Date of Encounter: 06/19/17 Time of Encounter: 10:45 Subjective Narrative: General Surgery - POD #15 The patient has become febrile thru the night, Nursing resports tachycardia and confusion. Maximum temperature 103.2; currently 102.9. Heart rate has been elevated, range 114-117; respiratory rate 18-20; blood pressure 140/70 to 160/85. SPO2 on 2 L/m nasal cannula 93%. On 3 L/m nasal cannula 96% Lungs: Clear; patient denies abdominal pain on deep inspiration Abdomen: Diffusely tender; hypoactive bowel sounds. Abdominal tenderness is a new finding. Minimal purulent drainage from the lower portion of the midline incision- several enedina had been removed to effect more complete drainage of this subcutaneous collection The percutaneous drain recorded output - approximately 20 mL; the fluid appears similar to stool/succus Urine output: 2550 mL through the night. Laboratories: White count 9.1, hemoglobin 9.3 with hematocrit 29.2. Platelet count 377,000; differential notable for 2% metamyelocytes otherwise unremarkable Sodium 132, potassium 4.2, bicarbonate 94, BUN 27, creatinine 0.96. Accu-Cheks - 141 to 186 Microbiology: Cultures from the percutaneous drainage procedure of the mid abdominal abscess - few gram-positive cocci, few yeast, few gram-positive rods Identification of these organisms still pending urine culture notable for yeast species - Jayna albicans and Jayna glabrata. Patient is currently on micafungin Impression: Postoperative day #15, status post exploratory celiotomy, sigmoid colectomy with stapled colocolonic anastomosis for acute perforated sigmoid diverticulitis. New-onset abdominal pain, fever, and tachycardia. Blood and urine cultures repeated this morning; results are pending. Clinical findings concerning for an intra-abdominal process. CT abdomen/ pelvis ordered. IV Tylenol (ofirmev) ordered for fever pending completion of the current evaluation Patient to be NPO - discussed with Dietary; plans to taper TPN in favor of enteral nutrition put on hold Objective Vital Signs - Last 8 Hours Temp Pulse Resp BP Pulse Ox 06/19/17 10:07 102.9 F H 114 18 140/70 93 06/19/17 09:36 96 06/19/17 08:44 103.0 F H 117 18 160/85 95 06/19/17 06:58 103.2 F H 117 20 149/85 96 06/19/17 04:15 19 94 Intake and Output 06/18/17 06/19/17 06/19/17 23:59 07:59 15:59 Intake Total 3730 / 3730 0 / 0 0 / 0 Output Total 1300 / 1300 0 / 0 0 / 0 Balance 2430 / 2430 0 / 0 0 / 0 Intake: IV Fluids 3730 / 3730 0.9 % Sodium Chloride 1,000 ML 1000 / 1000 @ 25 mls/hr IVC .Q24H [facility] Rx#: [id number] Clinimix E 5%-15% SOLUTION 2, 2210 / 2210 000 ML Travasol 10% 200 ML @ 91 .6 mls/hr IVC .Q24H [facility] with M. v.i. Adult 10 ml Rx#:[id number] Merrem 500 MG In Water for inj. 20 / 20 (sterile) 10 ML @ 200 mls/hr IVP Q8H [facility] Rx#:[id number] Vancocin 1,750 MG In Dextrose 5 500 / 500 % 500 ML @ 333.34 mls/hr IVPB Q24H [facility] Rx#:[id number] Oral 0 / 0 0 / 0 0 / 0 Output: Urine 1300 / 1300 0 / 0 0 / 0 Other: Stool Size Small Stool Consistency loose formed Stool Color Brown # Voids 2 1 # Bowel Movements 1 Blood Glucose* 198 154 141 - Labs 06/19/17 00:26 06/19/17 00:26 Diabetes panel 06/19/17 Range/Units 00:26 Sodium 132 L (136-145) mEq/L Potassium 4.2 (3.5-5.1) mEq/L Chloride 94 L (98-107) mEq/L Carbon Dioxide 28 (23-29) mEq/L BUN 27 H (8-23) mg/dL Creatinine 0.96 (0.60-1.20) mg/dL Glucose 172 H (70-105) mg/dL Calcium 8.4 L (8.6-10.3) mg/dL Calcium panel 06/19/17 Range/Units 00:26 Calcium 8.4 L (8.6-10.3) mg/dL Pituitary panel 06/19/17 Range/Units 00:26 Sodium 132 L (136-145) mEq/L Potassium 4.2 (3.5-5.1) mEq/L Chloride 94 L (98-107) mEq/L Carbon Dioxide 28 (23-29) mEq/L BUN 27 H (8-23) mg/dL Creatinine 0.96 (0.60-1.20) mg/dL Glucose 172 H (70-105) mg/dL Calcium 8.4 L (8.6-10.3) mg/dL Adrenal panel 06/19/17 Range/Units 00:26 Sodium 132 L (136-145) mEq/L Potassium 4.2 (3.5-5.1) mEq/L Chloride 94 L (98-107) mEq/L Carbon Dioxide 28 (23-29) mEq/L BUN 27 H (8-23) mg/dL Creatinine 0.96 (0.60-1.20) mg/dL Glucose 172 H (70-105) mg/dL Calcium 8.4 L (8.6-10.3) mg/dL - VTE Documentation of Mechanical Device: Intermittent pneumatic compression device Consult Discharge Plan - Plan Referrals: Kole Barksdale MD [Primary Care Provider] - Michele Machuca MD [Non-Partnered Physician] -
[2017-06-19 11:22] LABS: vanA/B Vancomycin-Resist Genes ***DETECTED*** (Not Detect)
[2017-06-19 11:23] LABS: Acinetobacter baumannii by PCR Not Detected (Not Detect); Candida albicans by PCR Not Detected (Not Detect); Candida glabrata by PCR Not Detected (Not Detect); Candida krusei by PCR Not Detected (Not Detect); Candida parapsilosis by PCR Not Detected (Not Detect); Candida tropicalis by PCR Not Detected (Not Detect); Enterococcus by PCR ***DETECTED*** (Not Detect); Escherichia coli by PCR Not Detected (Not Detect); Klebsiella oxytoca by PCR Not Detected (Not Detect); Klebsiella pneumoniae by PCR Not Detected (Not Detect); Pseudomonas aeruginosa by PCR Not Detected (Not Detect); Serratia marcescens by PCR Not Detected (Not Detect); Staphylococcus aureus by PCR Not Detected (Not Detect); Streptococcus agalactiae(B)PCR Not Detected (Not Detect); Streptococcus by PCR Not Detected (Not Detect); Streptococcus pneumoniae PCR Not Detected (Not Detect); Streptococcus pyogenes (A) PCR Not Detected (Not Detect)
[2017-06-19] MEDS: Micafungin 100 MG in 0.9 % Sodium Chloride Mini Bag 100 ML IVPB SCH (11:35)
[2017-06-19] MEDS: Acetaminophen IV 1,000 MG/100 ML INFUS..BTL IVPB SCH ×3 (11:35→23:14)
[2017-06-19] MEDS: Ondansetron 4 MG/2 ML VIAL IVP PRN ×2 (11:48→22:21)
[2017-06-19] MEDS: DAPTOMYCIN IVPB SCH (15:16)
[2017-06-19] MEDS: SODIUM CHLORIDE 0.9% IVPB SCH (15:16)
[2017-06-19 16:29] LABS: Bilirubin,Urine Negative (Negative); Blood,Urine Large (Negative); Clarity,Urine Clear (Clear); Color,Urine Yellow (Yellow); Glucose,Urine (UA) Normal (Normal); Ketones,Urine Negative (Negative); Leukocyte Esterase,Urine Negative (Negative); Nitrite,Urine Negative (Negative); PH,Urine 6.5 pH Units (5.0-8.0); Protein,Urine 30 mg/dL (Neg-Trace); Specific Gravity,Urine 1.021 (1.010-1.025); Urobilinogen,Urine Normal (Normal)
[2017-06-19 16:41] LABS: Bacteria,Urine None Seen per hpf (None-Few); Hyaline Casts,Urine None Seen per lpf (None-Few); Squamous Epithelial Cell,Urine Many per lpf (None-Few); WBC,Urine 0-3 per hpf (0-3)
[2017-06-19 16:52] LABS: RBC,Urine 0-3 per hpf (0-3)
[2017-06-19] MEDS ORDERED: Clinimix E 5%-15% SOLUTION 2,000 ML with MVI, adult with vitamin K 10 ML IVC SCH (17:00)
[2017-06-19] MEDS: Clinimix E 5%-15% SOLUTION 2,000 ML, Parenteral Amino Acid 10% 200 ML with MVI, adult ... IVC SCH (17:28)
[2017-06-19] MEDS: Meropenem 500 MG in Water for inj. (sterile) 10 ML IVP SCH (19:13)
[2017-06-19] MEDS: MetroNIDAZOLE 500 MG/100 ML 500 MG/100 ML BAG IVPB SCH (19:13)
[2017-06-19] MEDS: *HR* LORazepam 2 MG/ML VIAL IVP PRN (22:21)
[2017-06-20 02:36] LABS: Hematocrit 22.5 % (35.3-44.9); Mean Corpuscular HGB Conc 31.6 g/dL (31.6-35.5); Mean Corpuscular Hemoglobin 29.2 pg (28.0-33.3); Mean Corpuscular Volume 92.6 fL (83.0-100.0); Mean Platelet Volume 8.6 fL (9.4-12.4); Platelet Count 244 K/mcL (140-400); Red Blood Count 2.43 M/mcL (3.82-4.97); Red Cell Distribution Width 14.3 % (11.5-14.5)
[2017-06-20 02:42] LABS: Hemoglobin 7.1 g/dL (11.5-15.4)
[2017-06-20 02:56] LABS: BUN/Creatinine Ratio 28 (6-26); Blood Urea Nitrogen 26 mg/dL (8-23); Calcium 7.3 mg/dL (8.6-10.3); Carbon Dioxide 32 mEq/L (23-29); Chloride 97 mEq/L (98-107); Glucose 103 mg/dL (70-105); Osmolality,Calculated 279 (280-300); Potassium 3.7 mEq/L (3.5-5.1); Sodium 132 mEq/L (136-145); eGFR For African Americans > 60 (> 60); eGFR For Non-African Americans > 60 (> 60)
[2017-06-20 03:44] LABS: Acinetobacter baumannii by PCR Not Detected (Not Detect); Candida albicans by PCR Not Detected (Not Detect); Candida glabrata by PCR ***DETECTED*** (Not Detect); Candida krusei by PCR Not Detected (Not Detect); Candida parapsilosis by PCR ***DETECTED*** (Not Detect); Enterococcus by PCR ***DETECTED*** (Not Detect); Escherichia coli by PCR Not Detected (Not Detect); Klebsiella oxytoca by PCR Not Detected (Not Detect); Klebsiella pneumoniae by PCR Not Detected (Not Detect); Pseudomonas aeruginosa by PCR Not Detected (Not Detect); Serratia marcescens by PCR Not Detected (Not Detect); Staphylococcus aureus by PCR Not Detected (Not Detect); Streptococcus agalactiae(B)PCR Not Detected (Not Detect); Streptococcus by PCR Not Detected (Not Detect); Streptococcus pneumoniae PCR Not Detected (Not Detect); Streptococcus pyogenes (A) PCR Not Detected (Not Detect); vanA/B Vancomycin-Resist Genes ***DETECTED*** (Not Detect)
[2017-06-20 03:45] LABS: Candida tropicalis by PCR Not Detected (Not Detect)
[2017-06-20] MEDS: Albuterol 2.5 MG/3 ML NEBULIZER IH SCH ×6 (04:01→23:30)
[2017-06-20] MEDS: Insulin LISPRO 300 UNITS/3 ML VIAL SQ SCH ×5 (04:41→21:38)
[2017-06-20] MEDS: Ondansetron 4 MG/2 ML VIAL IVP PRN ×2 (04:50→18:17)
[2017-06-20] MEDS: Acetaminophen IV 1,000 MG/100 ML INFUS..BTL IVPB SCH ×2 (04:50→10:04)
[2017-06-20] MEDS: *HR* LORazepam 2 MG/ML VIAL IVP PRN ×2 (04:50→18:17)
[2017-06-20] MEDS: *HR* Heparin 5,000 UNIT/ML VIAL SQ SCH ×2 (06:19→17:11)
[2017-06-20] MEDS: Levothyroxine Sodium 100 MCG VIAL IVP SCH (06:19)
[2017-06-20] MEDS: Meropenem 500 MG in Water for inj. (sterile) 20 ML 10 ML IVP SCH ×3 (06:19→21:39)
--- NOTE | 2017-06-20 08:10 | Event Note ---
Date of Encounter: 06/20/17 Time of Encounter: 08:[address] scan results noted. There is persistent hydronephrosis on the left kidney despite appropriate position of the stent. Appears stable compared to last CT scan. As mentioned previously stent malfunction and obstruction are possible but physiologic dilation because of the stent, reflux, or decreased peristalsis secondary to the intra-abdominal process are more likely. At this point, I feel that a stent exchange offers higher risk then benefit to the patient. Furthermore, reviewing the general surgery note, it appears that there are other more obvious causes for her fever and sources of infection. We'll continue to monitor the patient. If urologic intervention is deemed necessary in the future, will consider nephrostomy tube placement to avoid additional anesthesia. If the general surgery team is planning a surgical procedure may consider stent exchange at that time.
--- NOTE | 2017-06-20 09:14 | Internal Med Progress Note ---
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, MRSA and yeast bacteremia possibly due to perforated diverticulum POD #16 s/p sigmoid colectomy with stapled colocolonic anastomosis Fever 103.2, heart rate 117 Blood cell count has decreased but now is running fevers Daptomycin day #2, vancomycin day #12, meropenem day #5 Followed by infectious diseases Left subclavian central line was removed [employer] dilaudid Phenergren and Zofran PRN nausea Surgery following Respiratory infection panel was negative (2) MRSA bacteremia Current Visit: Yes Status: Acute Assessment and plan: Blood cultures positive for MRSA bacteremia, had suspected source is PICC line vs central venous line repeat cultures daily ID consulted, appreciate recommendations replaced PICC line ID as suspicion of endocarditis, meets one major and one minor Herrera criteria; will need EMILIE prior to discharge TTE shows ejection fraction of 65-70% with mild tricuspid regurgitation, no vegetations noted (3) Abdominal abscess/ perforated diverticulum Current Visit: Yes Status: Acute Assessment and plan: CT 06/16 revealed enlarging fluid collections suspicious for organizing abscess IR performed percutaneous drainage of abscess 06/17 Awaiting cultures from fluid (4) Acute respiratory failure with hypoxia Current Visit: Yes Status: Acute Assessment and plan: Likely secondary to atelectasis s/p surgery in setting of OHS; she is clinically stable Currenlty on 2 L oxygen but saturating well in the 90's; wean as tolerated Continue incentive spirometry while seated (5) Acute worsening of stage 3 chronic kidney disease Current Visit: Yes Status: Resolved Assessment and plan: Cr back to her baseline Will continue to monitor Cr and electrolytes (6) HTN (hypertension) Current Visit: Yes Status: Chronic Assessment and plan: BP well controlled at this visit recently Hold Losartan for now Continue hydralazine IV PRN hypertension Qualifiers: Hypertension type: essential hypertension Qualified Code(s): I10 - Essential (primary) hypertension (7) Hypothyroidism Current Visit: Yes Status: Chronic Assessment and plan: Continue IV levothyroxine, will transition to PO once she better tolerates orally Qualifiers: Hypothyroidism type: acquired Qualified Code(s): E03.9 - Hypothyroidism, unspecified (8) Cystitis Current Visit: Yes Status: Acute Assessment and plan: ABD CT with thickening of bladder wall and questionable incomplete distention versus cystitis with mild hydronephrosis Continue vanc, radha as above Urology placed ureteral stent during surgery. Should follow up with urology as outpatient for stent removal 3-4 weeks after procedure Urine culture positive for hank, currently on Fluconazole (9) Hydronephrosis Current Visit: Yes Status: Acute Assessment and plan: CT 06/16 showed enlarging hydronephrosis despite stent placement Urology did not feel like intervention as necessary as kidney function has remained stable Qualifiers: Hydronephrosis type: other Qualified Code(s): N13.39 - Other hydronephrosis (10) Obesity Current Visit: Yes Status: Chronic Assessment and plan: BMI 49. lifestyle modifications encouraged as outpatient Qualifiers: Obesity type: due to excess calories Obesity classification: adult class 3 (BMI >= 40) Serious obesity comorbidity presence: without serious comorbidity Body mass index: BMI 45.0-49.9 Qualified Code(s): E66.01 - Morbid (severe) obesity due to excess calories; Z68.42 - Body mass index (BMI) 45.0-49.9, adult ; Z68.42 - Body mass index (BMI) 45.0-49.9, adult; Z68.42 - Body mass index (BMI ) 45.0-49.9, adult; Z68.42 - Body mass index (BMI) 45.0-49.9, adult Qualifiers: Sepsis type: methicillin resistant Staphylococcus aureus Qualified Code(s) : A41.02 - Sepsis due to Methicillin resistant Staphylococcus aureus - Subjective Interval history: Abdominal pain has improved. Had a fevers of 103.2 on 06/19/17, complaining of a cough and pain everywhere, abdominal discomfort, severe weakness, headache, runny nose - Constitutional Vitals: Temp Pulse Resp BP Pulse Ox 98.4 F 92 16 103/62 97 06/20/17 08:10 06/20/17 08:10 06/20/17 08:12 06/20/17 08:10 06/20/17 08:12 General appearance: Present: cooperative, A&O X 3, pleasant, no acute distress, obese, answers questions appropriately Exam: - Head Head exam: Present: atraumatic, normocephalic - Eye Eye exam: Present: PERRL, conjuntiva pink, sclera anicteric Pupils: Present: PERRL - Neck Neck exam general surgery: Present: supple, trachea midline. Absent: lymphadenopathy Additional comments: Left subclavian central line Right upper extremity PICC line - Respiratory Respiratory exam: Present: CTAB. Absent: accessory muscle use, rales, rhonchi, wheezes - Cardiovascular Cardiovascular exam: Present: RRR, +S1, +S2. Absent: diastolic murmur, gallop, rubs, systolic murmur - GI/Abdominal GI/Abdominal exam: Present: normal bowel sounds, soft, no peritoneal signs. Absent: distended, tenderness Additional comments: Abdominal drain in place Surgical abdominal wounds covered by dressing - Extremities Exam Extremities exam: Present: warm, radial pulses palpable and symmetrical. Absent : calf tenderness, cyanotic, pedal edema Additional comments: +1 pitting edema in both lower extremities - Neurological Exam Neurological exam: Present: CN II-XII intact, oriented X3, no focal deficits. Absent: pronater drift, facial droop, speech deficit - Skin Skin exam: Present: dry, intact Internal Medicine: Result - Labs CBC & Chem 7: 06/20/17 02:20 06/20/17 02:20 Labs: Short CBC 06/20/17 Range/Units 02:20 WBC 6.3 (4.3-11.1) K/mcL Hgb 7.1 L D (11.5-15.4) g/dL Hct 22.5 L (35.3-44.9) % Plt Count 244 (140-400) K/mcL BMP 06/20/17 02:20 Sodium 132 L Potassium 3.7 Chloride 97 L Carbon Dioxide 32 H BUN 26 H Creatinine 0.94 Glucose 103 Calcium 7.3 L Urine 06/19/17 Range/Units 16:10 Urine Color Yellow (Yellow) Urine Clarity Clear (Clear) Urine pH 6.5 (5.0-8.0) pH Units Ur Specific [place] 1.021 (1.010-1.025) Urine Protein 30 H (Neg-Trace) mg/dL Urine Glucose (UA) Normal (Normal) mg/dL - ABG Interpretation ABG results: ABG ABG pH 7.43 pH Units (7.32-7.45) 06/08/17 04:24 ABG pCO2 35 mmHg (35-45) 06/08/17 04:24 ABG pO2 72 mmHg (85-104) L 06/08/17 04:24 ABG O2 Saturation 95 % (95-98) 06/08/17 04:24 PT/INR, D-dimer PT 16.4 Seconds (9.4-12.1) H 06/17/17 06:18 - Impressions Impressions Chest X-Ray 06/19/17 10:20 IMPRESSION: Mild right middle lobe opacity, for which atelectasis or pneumonitis could be considered. Follow-up to resolution suggested. D/ / Michael Taveras MD / Michael Taveras MD Interpreting Provider: Michael Taveras MD Abdomen/Pelvis CT 06/19/17 12:45 IMPRESSION: Status post evacuation of large previously demonstrated collection within the anterior abdomen since prior examination dated 06/16/2017, status post placement of percutaneous drainage catheter. A few smaller pockets of fluid are again seen throughout the abdomen and pelvis, too small for percutaneous drainage. Persistent pneumoperitoneum. Persistent moderate right hydronephrosis and hydroureter in the presence of nephroureteral stent. Functionality of the stent is questioned. Slight interval decrease size of fluid collection within the subcutaneous fat of the midline anterior abdominal wall, likely postoperative seroma. Bibasilar atelectasis. D/ / Michael Taveras MD / Michael Taveras MD Interpreting Provider: Michael Taveras MD - VTE Documentation of Mechanical Device: Intermittent pneumatic compression device Consult Discharge Plan - Plan Referrals: Kole Barksdale MD [Primary Care Provider] - Michele Machuca MD [Non-Partnered Physician] -
[2017-06-20] MEDS ORDERED: Aminoglycoside Consult 1 EACH MC ONE (09:16)
[2017-06-20] MEDS: Insulin DETEMIR 100 UNIT/ML X5UNITS SQ SCH ×2 (10:04→21:39)
[2017-06-20] MEDS: Pantoprazole 40 MG VIAL IVP SCH (10:04)
[2017-06-20] MEDS: Nystatin SUSP 5 ML UD.LIQ PO SCH ×4 (10:04→21:38)
[2017-06-20] MEDS: Micafungin 100 MG in 0.9 % Sodium Chloride Mini Bag 100 ML IVPB SCH (10:05)
[2017-06-20 10:26] LABS: Acinetobacter baumannii by PCR Not Detected (Not Detect); Candida albicans by PCR Not Detected (Not Detect); Candida glabrata by PCR ***DETECTED*** (Not Detect); Candida krusei by PCR Not Detected (Not Detect); Candida parapsilosis by PCR Not Detected (Not Detect); Candida tropicalis by PCR Not Detected (Not Detect); Enterococcus by PCR Not Detected (Not Detect); Escherichia coli by PCR Not Detected (Not Detect); Klebsiella oxytoca by PCR Not Detected (Not Detect); Klebsiella pneumoniae by PCR Not Detected (Not Detect); Pseudomonas aeruginosa by PCR Not Detected (Not Detect); Serratia marcescens by PCR Not Detected (Not Detect); Staphylococcus aureus by PCR Not Detected (Not Detect); Streptococcus agalactiae(B)PCR Not Detected (Not Detect); Streptococcus by PCR Not Detected (Not Detect); Streptococcus pneumoniae PCR Not Detected (Not Detect); Streptococcus pyogenes (A) PCR Not Detected (Not Detect)
--- NOTE | 2017-06-20 11:27 | General Surgery Progress Note ---
Date of Encounter: 06/20/17 Time of Encounter: 10:30 Subjective Patient reports: feels better Narrative: General Surgery - POD #16 patient awake and alert; confusion resolved. Patient feeling much better; denies any abdominal pain. Nausea persists; no emesis. Maximum temperature 100.4; pulse 92 (range 92- 100); respiratory rate 16, blood pressure 123/78 Abdomen: Soft, nontender; active bowel sounds. Midline incision clean and dry; no further drainage. Dressing removed. Percutaneous drain: 25 mL for calendar day 06/19/17; no output so far today. Urine output: 800 mL so far today - intake far exceeds output in the last 24 hours. Laboratories: White count 6.3; hemoglobin is full and a 7.1 with hematocrit 22.5 most likely due to aggressive fluid resuscitation in the last 24 hours Differential not obtained; sodium stable at 132, potassium 3.7, chloride 87, bicarbonate 32, BUN 26, creatinine 0.94. CT abdomen/pelvis: No new intra-abdominal or pelvic findings Impression/Plan: Postoperative day #16: Status post acute perforated sigmoid diverticulitis for which patient underwent an exploratory celiotomy with sigmoid colectomy and stapled colocolonic anastomosis. [place]-colonic anastomosis appears intact. Postoperative sepsis initially due to MRSA; VRE bacteremia demonstrated on most recent blood cultures Worsening anemia - hemoglobin has fallen to 7.1, hematocrit 22.7) previously hemoglobin 8.8-9.3; hematocrit 27.9-29.2) - most likely due to fluids administered in the last 24 hours. The patient is critically ill and if the hemoglobin/hematocrit do not rebound with stabilization of her present condition or diuresis - should consider transfusion Persistent nausea Fever - diminished - change IV acetominophen to oral No new intra abd process identified - abdominal pain resolved. Resume full liquid diet and resume tapering TPN Objective Vital Signs - Last 8 Hours Temp Pulse Resp BP Pulse Ox 06/20/17 08:12 16 97 06/20/17 08:10 98.4 F 92 16 103/62 98 06/20/17 04:30 100.0 F H 100 16 123/78 97 06/20/17 04:01 18 97 Intake and Output 06/19/17 06/20/17 06/20/17 23:59 07:59 15:59 Intake Total 1210 / 1210 360 / 360 340 / 340 Output Total 725 / 725 500 / 500 600 / 600 Balance 485 / 485 -140 / -140 -260 / -260 Intake: IV Fluids 1210 / 1210 360 / 360 100 / 100 0.9 % Sodium Chloride 1,000 ML 1000 / 1000 @ 200 mls/hr IVC .Q5H [facility] Rx#: [id number] Merrem 500 MG In Water for inj. 10 / 10 10 / 10 (sterile) 10 ML @ 200 mls/hr IVP Q8H [facility] Rx#:[id number] Ofirmev 1,000 mg/100 ml 1,000 200 / 200 100 / 100 100 / 100 mg In 100 ml @ 400 mls/hr IVPB Q6H [facility] Rx#:[id number] Intralipid 20% 250 ML @ 21 mls/ 250 / 250 hr IVPB DAILY@1700 [facility] Rx#: [id number] Oral 0 / 0 240 / 240 Output: Urine 300 / 300 Urine/Stool Mix 700 / 700 500 / 500 300 / 300 Wound Drainage 25 / 25 0 / 0 Left Lower Anterior Medial 25 / 25 0 / 0 Abdomen Other: Meal Clears Percent of Meal Consumed 0% Stool Consistency liquid Stool Color Brown # Voids 1 Weight 130.952 kg Blood Glucose* 115 118 175 Patient Weight 06/20/17 23:59 Weight 130.952 kg - Labs 06/20/17 02:20 06/20/17 02:20 Diabetes panel 06/20/17 06/20/17 Range/Units 02:20 02:20 Sodium 132 L (136-145) mEq/L Potassium 3.7 (3.5-5.1) mEq/L Chloride 97 L (98-107) mEq/L Carbon Dioxide 32 H (23-29) mEq/L BUN 26 H (8-23) mg/dL Creatinine 0.94 (0.60-1.20) mg/dL Glucose 103 (70-105) mg/dL Calcium 7.3 L (8.6-10.3) mg/dL Triglycerides 110 (< 150) mg/dL Calcium panel 06/20/17 Range/Units 02:20 Calcium 7.3 L (8.6-10.3) mg/dL Pituitary panel 06/20/17 Range/Units 02:20 Sodium 132 L (136-145) mEq/L Potassium 3.7 (3.5-5.1) mEq/L Chloride 97 L (98-107) mEq/L Carbon Dioxide 32 H (23-29) mEq/L BUN 26 H (8-23) mg/dL Creatinine 0.94 (0.60-1.20) mg/dL Glucose 103 (70-105) mg/dL Calcium 7.3 L (8.6-10.3) mg/dL Adrenal panel 06/20/17 Range/Units 02:20 Sodium 132 L (136-145) mEq/L Potassium 3.7 (3.5-5.1) mEq/L Chloride 97 L (98-107) mEq/L Carbon Dioxide 32 H (23-29) mEq/L BUN 26 H (8-23) mg/dL Creatinine 0.94 (0.60-1.20) mg/dL Glucose 103 (70-105) mg/dL Calcium 7.3 L (8.6-10.3) mg/dL - VTE Documentation of Mechanical Device: Intermittent pneumatic compression device Consult Discharge Plan - Plan Referrals: Kole Barksdale MD [Primary Care Provider] - Michele Machuca MD [Non-Partnered Physician] -
[2017-06-20] MEDS: *HR* HYDROmorphone 20 MG/20 ML PCA IVC PRN (11:44)
[2017-06-20] MEDS: SODIUM CHLORIDE 0.9% IVPB SCH (14:42)
[2017-06-20] MEDS: DAPTOMYCIN IVPB SCH (14:42)
[2017-06-20] MEDS ORDERED: Clinimix E 5%-15% SOLUTION 2,000 ML with MVI, adult with vitamin K 10 ML IVC SCH (17:00)
[2017-06-20] MEDS: Clinimix E 5%-15% SOLUTION 2,000 ML, Parenteral Amino Acid 10% 200 ML with MVI, adult ... IVC SCH ×2 (17:10→17:39)
[2017-06-20] MEDS: Acetaminophen 325 MG TABLET PO PRN (17:12)
[2017-06-21] MEDS: Insulin LISPRO 300 UNITS/3 ML VIAL SQ SCH ×6 (00:47→21:27)
[2017-06-21] MEDS: Albuterol 2.5 MG/3 ML NEBULIZER IH SCH ×6 (04:10→23:35)
[2017-06-21 05:00] LABS: Hematocrit 25.8 % (35.3-44.9); Hemoglobin 8.3 g/dL (11.5-15.4); Mean Corpuscular HGB Conc 32.2 g/dL (31.6-35.5); Mean Corpuscular Volume 90.2 fL (83.0-100.0); Platelet Count 233 K/mcL (140-400); Red Blood Count 2.86 M/mcL (3.82-4.97); Red Cell Distribution Width 14.5 % (11.5-14.5)
[2017-06-21 05:16] LABS: BUN/Creatinine Ratio 32 (6-26); Blood Urea Nitrogen 26 mg/dL (8-23); Carbon Dioxide 32 mEq/L (23-29); Chloride 98 mEq/L (98-107); Glucose 95 mg/dL (70-105); Osmolality,Calculated 281 (280-300); Potassium 3.9 mEq/L (3.5-5.1); Sodium 133 mEq/L (136-145); eGFR For African Americans > 60 (> 60); eGFR For Non-African Americans > 60 (> 60)
[2017-06-21 06:14] LABS: Magnesium 2.3 mg/dL (1.6-2.6); Phosphorous 2.7 mg/dL (2.7-4.5)
[2017-06-21] MEDS: Levothyroxine Sodium 100 MCG VIAL IVP SCH (06:21)
[2017-06-21] MEDS: Meropenem 500 MG in Water for inj. (sterile) 20 ML 10 ML IVP SCH ×2 (06:21→13:55)
[2017-06-21] MEDS: *HR* Heparin 5,000 UNIT/ML VIAL SQ SCH ×2 (06:22→18:04)
--- NOTE | 2017-06-21 09:21 | Infectious Disease Progress No ---
Date of Encounter: 06/21/17 Time of Encounter: 09:14 - Assessment and Plan (1) Sepsis Current Visit: Yes Status: Resolved Presented with 3 SIRS criteria. Over the weekend patient was febrile, tachycardic, tachypneic. Leukocytosis resolved. Today patient is afebrile, remains tachycardic. Secondary to complicated diverticulitis, and MRSA bacteremia, fungal bacteremia , VRE bacteremia, UTI 2nd to hank albicans and Hank glabrata Qualifiers: Qualified Code(s): A41.02 - Sepsis due to Methicillin resistant Staphylococcus aureus (2) Perforated diverticulum Current Visit: Yes Status: Acute Patient presented with acute onset of sharp abdominal pain. Has history of sigmoid diverticulitis. CT abdomen on 05/29 showed pneumoperitoneum with diverticulitis of sigmoid colon. Patient underwent exploratory celiotomy with sigmoid colectomy on 06/04/17. She had a PICC line and subclavian CVC placed and confirmed by chest x-ray on . Patient was also started on Cipro and Flagyl on 05/29. patient became febrie 06/09, with worsening leukocytosis and antibiotics were broadened to vancomycin and cefepime and Flagyl as continued. blood Cultures on are negative. fever of 102.1 on 06/11/17 and primary team started patient on Micafungin 100mg daily. CT abdomen/pelvis 06/11 increasing fluid collections along abdominal incision, and multiloculated fluid loculations throughout the abdomen and pelvis increased in size and organizing, decreased pneumoperitoneum 06/14/18 micafungin d/c and patient started on diflucan CT notes increased size of abscess to drain 10.7 cm within the abdomen. Worsening right hydronephrosis. An worsening seroma below incision measuring 4.1 x 5.6 cm. Status post percutaneous drainage of abdominal abscess by IR 06/17/2017: Cultures have grown MRSA, VRE, Hank albicans Patient does not have abdominal pain to palpation. Patient was febrile and tachycardic over the weekend. Repeat blood cultures: 06/18/17 peripheral blood cultures grew yeast (2/2 cultures ) and VRE (1/2 cultures) 06/19/17 peripheral cultures preliminary negative 06/19/17 central venous catheter tip culture preliminary negative CT 06/19/2017 shows improvement of previous abdominal abscess. Continued small pockets of fluid collections throughout the abdomen and pelvis. Persistent pneumoperitoneum persistent moderate right hydronephrosis and hydroureter in the presence of nephroureteral stent and slight interval decrease in size of fluid collection within the subcutaneous fat of the midline anterior abdominal wall. Creatinine clearance 99 Plan: d/c meropenem, start cefepime and flagyl again. continue micafungin 100MG daily. Antibiotic duration depends on clinical picture (3) VRE bacteremia Current Visit: Yes Status: Acute as stated above blood cultures have grown VRE. Patient was switched to daptomycin over the weekend. CK is 31. Creatinine clearance is 99. We will need repeat blood cultures from PICC line 2 and peripheral 2 today. (4) MRSA bacteremia Current Visit: Yes Status: Acute Complicated MRSA bacteremia patient had left knee prosthetic joint Blood cultures from 06/08 from subclavian CVC and PICC line are positive for MRSA. Patient started on vancomycin and cefepime on 06/08 Since starting vancomycin patient's white blood cell count has improved from 15.1-10.9. Last trough of vancomycin was 18.3. Patient had repeat blood cultures drawn CvC, PICC and peripheral 06/10/17 all negative x6. PICC line culture of tip negative TTE: LVEF 65-70% mild tricuspid regurgiations, no vavular vegetations are noted vanc trough 17 kidney function stable Repeat peripheral blood cultures 06/18/17 and 06/19/17 are negative for MRSA. Left subclavian CVC culture tip negative preliminarily Left subclavian CVC blood culture on's 06/19/17 positive for yeast species and gram-positive cocci. Subclavian CVC has been removed. Plan has been placed in the right upper extremity: Will need for repeat peripheral blood cultures and blood cultures from PICC line today. Plan: Patient switched from vancomycin to daptomycin secondary to VRE. Antibiotic duration will be determined by results of EMILIE, which patient will obtain once deemed by primary team to be stable for procedure. (5) Hypoxia Current Visit: Yes Status: Acute stable patient requiring O2 supplementation since being admitted O2 requirement 3L on lung exam clear anteriorly CXR 06/10/17 negative for pleural effusion, consolidation. Free air under the right hemidiaphragm noted again unchanged. sob unchanged from yesterday plan as per primary (6) UTI (urinary tract infection) Current Visit: Yes Status: Acute 06/13 urine culture Hank albicans and glabrata harry d/c patient reports urge incontinence which has improved. continue:patient on micafungin 100mg daily Qualifiers: Qualified Code(s): N30.00 - Acute cystitis without hematuria (7) Hydronephrosis Current Visit: Yes Status: Acute Discovered on CT abdomen 06/02 which showed right hydroureter with right ureteritis and bilateral pyelitis Underwent on 06/04/17 right ureteral stent placement and left ureteral catheter placement by urology. Patient has had 2 urine cultures which have been negative for growth. Urinalysis does not indicate any signs of infection. Patient has a Harry catheter out pitting light red urine. Likely secondary to urologic procedure. Patient is on broad-spectrum antibiotics, vancomycin, cefepime which will cover urinary tract infection. Repeat CT abdomen and pelvis on 06/07 showed improvement of right hydronephrosis and stable stent placement. Repeat CT at 06/16/2017 shows worsening right hydronephrosis. Urology reports no additional intervention needed at this point. Qualifiers: Qualified Code(s): N13.39 - Other hydronephrosis (8) Hypothyroidism Current Visit: Yes Status: Chronic As per primary. Qualifiers: Qualified Code(s): E03.9 - Hypothyroidism, unspecified (9) HTN (hypertension) Current Visit: Yes Status: Chronic controlled. Qualifiers: Qualified Code(s): I10 - Essential (primary) hypertension (10) DVT prophylaxis Current Visit: Yes Status: Acute heparin SQ - Subjective Interval history: Over the weekend patient had persistent fevers of 100-103 degrees Fahrenheit. She became confused according to her . Stating Calvin Alexander is a president. Patient blood cultures resulted in findings of VRE bacteremia and Hank bacteremia. Patient was switched from vancomycin to daptomycin over the weekend. Furthermore her subclavian CVC had been removed and a new PICC line has been placed on the right upper extremity. Since yesterday evening her fever has resolved. She is not confused anymore. She was alert and oriented 3 this morning. She reports that her shortness of breath is unchanged. Her abdominal pain has improved. She denies chest pain or palpitations. She is tolerating her diet. She is having bowel movements. Her urge incontinence has improved. Infect Dis PN-Objective Data - Labs CBC & Chem 7: 06/21/17 04:40 06/21/17 04:40 Labs: Laboratory Results - last 24 hr 06/18/17 06/20/17 06/20/17 08:41 08:08 11:16 WBC RBC Hgb Hct MCV MCH MCHC RDW Plt Count MPV Sodium Potassium Chloride Carbon Dioxide BUN Creatinine Est GFR ( Amer) Est GFR (Non-Af Amer) BUN/Creatinine Ratio Glucose POC Glucose 175 H 162 H Calculated Osmolality Calcium Phosphorus Magnesium Vancomycin Trough A. baumannii (PCR) Not Detected Hank albicans (PCR) Not Detected C. glabrata (PCR) DETECTED A C. krusei (PCR) Not Detected C. parapsilosis (PCR) Not Detected C. tropicalis (PCR) Not Detected Enterobacteriac sp PCR Not Detected E. cloacae complex PCR Not Detected Enterococcus sp PCR Not Detected E. coli (PCR) Not Detected H. influenzae (PCR) Not Detected Klebsiella oxytoca PCR Not Detected Klebsiella pneumoniae Not Detected List. monocytogenes PCR Not Detected N. meningitidis (PCR) Not Detected Proteus species (PCR) Not Detected Serratia marcescens PCR Not Detected Staphylococcus sp PCR Not Detected Staph aureus (PCR) Not Detected mecA-Methicil Res Gene N/A Streptococcus sp PCR Not Detected Group A Strep DNA Not Detected Group B Strep (PCR) Not Detected Strep pneumoniae (PCR) Not Detected P. aeruginosa (PCR) Not Detected Bryant/B-Vanco Res Genes N/A KPC (blaKPC) Detect PCR N/A 06/20/17 06/20/17 06/20/17 16:49 19:40 21:33 WBC RBC Hgb Hct MCV MCH MCHC RDW Plt Count MPV Sodium Potassium Chloride Carbon Dioxide BUN Creatinine Est GFR ( Amer) Est GFR (Non-Af Amer) BUN/Creatinine Ratio Glucose POC Glucose 136 H 174 H Calculated Osmolality Calcium Phosphorus Magnesium Vancomycin Trough 4.8 L A. baumannii (PCR) Hank albicans (PCR) C. glabrata (PCR) C. krusei (PCR) C. parapsilosis (PCR) C. tropicalis (PCR) Enterobacteriac sp PCR E. cloacae complex PCR Enterococcus sp PCR E. coli (PCR) H. influenzae (PCR) Klebsiella oxytoca PCR Klebsiella pneumoniae List. monocytogenes PCR N. meningitidis (PCR) Proteus species (PCR) Serratia marcescens PCR Staphylococcus sp PCR Staph aureus (PCR) mecA-Methicil Res Gene Streptococcus sp PCR Group A Strep DNA Group B Strep (PCR) Strep pneumoniae (PCR) P. aeruginosa (PCR) Bryant/B-Vanco Res Genes KPC (blaKPC) Detect PCR 06/21/17 06/21/17 06/21/17 00:37 04:40 04:40 WBC 7.2 RBC 2.86 L Hgb 8.3 L Hct 25.8 L MCV 90.2 MCH 29.0 MCHC 32.2 RDW 14.5 Plt Count 233 MPV 9.0 L Sodium 133 L Potassium 3.9 Chloride 98 Carbon Dioxide 32 H BUN 26 H Creatinine 0.81 Est GFR ( Amer) > 60 Est GFR (Non-Af Amer) > 60 BUN/Creatinine Ratio 32 H Glucose 95 POC Glucose 137 H Calculated Osmolality 281 Calcium 8.0 L Phosphorus 2.7 Magnesium 2.3 Vancomycin Trough A. baumannii (PCR) Hank albicans (PCR) C. glabrata (PCR) C. krusei (PCR) C. parapsilosis (PCR) C. tropicalis (PCR) Enterobacteriac sp PCR E. cloacae complex PCR Enterococcus sp PCR E. coli (PCR) H. influenzae (PCR) Klebsiella oxytoca PCR Klebsiella pneumoniae List. monocytogenes PCR N. meningitidis (PCR) Proteus species (PCR) Serratia marcescens PCR Staphylococcus sp PCR Staph aureus (PCR) mecA-Methicil Res Gene Streptococcus sp PCR Group A Strep DNA Group B Strep (PCR) Strep pneumoniae (PCR) P. aeruginosa (PCR) Bryant/B-Vanco Res Genes KPC (blaKPC) Detect PCR 06/21/17 06/21/17 04:51 08:37 WBC RBC Hgb Hct MCV MCH MCHC RDW Plt Count MPV Sodium Potassium Chloride Carbon Dioxide BUN Creatinine Est GFR ( Amer) Est GFR (Non-Af Amer) BUN/Creatinine Ratio Glucose POC Glucose 91 H 116 H Calculated Osmolality Calcium Phosphorus Magnesium Vancomycin Trough A. baumannii (PCR) Hank albicans (PCR) C. glabrata (PCR) C. krusei (PCR) C. parapsilosis (PCR) C. tropicalis (PCR) Enterobacteriac sp PCR E. cloacae complex PCR Enterococcus sp PCR E. coli (PCR) H. influenzae (PCR) Klebsiella oxytoca PCR Klebsiella pneumoniae List. monocytogenes PCR N. meningitidis (PCR) Proteus species (PCR) Serratia marcescens PCR Staphylococcus sp PCR Staph aureus (PCR) mecA-Methicil Res Gene Streptococcus sp PCR Group A Strep DNA Group B Strep (PCR) Strep pneumoniae (PCR) P. aeruginosa (PCR) Bryant/B-Vanco Res Genes KPC (blaKPC) Detect PCR Cultures: Cultures 06/18/17 10:44 Blood Culture - Preliminary Peripheral Venipuncture Vancomycin Resistant Enterococcus faecium Yeast Species 06/19/17 09:12 Blood Culture - Preliminary Central Venous Catheter Gram Positive Cocci Yeast Species 06/17/17 11:20 Body Fluid Culture - Final Other-Specify in Comments Hank albicans Methicillin Resistant S.aureus Enterococcus faecium 06/19/17 11:35 Catheter Tip Culture - Preliminary Intravenous or Arterial Cath No growth. 06/18/17 08:41 Blood Culture - Preliminary Peripheral Venipuncture Yeast Species 06/19/17 00:20 Blood Culture - Preliminary Peripheral Venipuncture No growth. 06/19/17 00:26 Blood Culture - Preliminary Peripheral Venipuncture No growth. 06/12/17 20:08 Blood Culture - Final Peripheral Venipuncture No growth. 06/13/17 04:38 Urine Culture - Final Urine,[place] Hank albicans Hank glabrata 06/10/17 05:45 Blood Culture - Final Peripheral Central Cath, Picc No growth. 06/10/17 05:41 Blood Culture - Final Peripheral Venipuncture No growth. 06/10/17 11:35 Blood Culture - Final Peripheral Central Cath, Picc No growth. 06/10/17 05:45 Blood Culture - Final Central Venous Catheter No growth. 06/10/17 05:46 Blood Culture - Final Peripheral Venipuncture No growth. 06/10/17 11:35 Blood Culture - Final Central Venous Catheter No growth. 06/10/17 16:40 Catheter Tip Culture - Final Intravenous or Arterial Cath No growth. 06/08/17 06:33 Blood Culture - Final Peripheral Central Cath, Picc Methicillin Resistant S.aureus 06/08/17 06:33 Blood Culture - Final Central Venous Catheter Methicillin Resistant S.aureus 06/08/17 04:20 Urine Culture - Final Urine,Clean Catch No significant growth. 06/03/17 09:25 Urine Culture - Final Urine,[place] No growth. 05/30/17 09:56 Blood Culture - Final Peripheral Venipuncture No growth. 05/30/17 10:10 Blood Culture - Final Peripheral Venipuncture No growth. Serology 06/19/17 06/19/17 06/19/17 Range/Units 16:10 09:12 09:12 Ur Specimen Adequacy Urine Color Yellow (Yellow) Urine Clarity Clear (Clear) Urine pH 6.5 (5.0-8.0) pH Units Ur Specific [place] 1.021 (1.010-1.025) Urine Protein 30 H (Neg-Trace) mg/dL Urine Glucose (UA) Normal (Normal) mg/dL Urine Ketones Negative (Negative) mg/dL Urine Blood Large H (Negative) Urine Nitrite Negative (Negative) Urine Bilirubin Negative (Negative) Urine Urobilinogen Normal (Normal) mg/dL Ur Leukocyte Esterase Negative (Negative) Urine Microscopic RBC 0-3 (0-3) per hpf Urine Microscopic WBC 0-3 (0-3) per hpf Ur Squamous Epith Cells Many H (None-Few) per lpf Urine Bacteria None Seen (None-Few) per hpf Hyaline Casts None Seen (None-Few) per lpf Ur Culture Indicated? NO (NO) A. baumannii (PCR) Not Detected (Not Detect) Chlamy pneumoniae PCR Not Detected (Not Detect) Adenovirus (PCR) Not Detected (Not Detect) B. pertussis DNA (PCR) Not Detected (Not Detect) B.parapertussis DNA PCR Not Detected (Not Detect) Hank albicans (PCR) Not Detected (Not Detect) C. glabrata (PCR) DETECTED A (Not Detect) C. krusei (PCR) Not Detected (Not Detect) C. parapsilosis (PCR) DETECTED A (Not Detect) C. tropicalis (PCR) Not Detected (Not Detect) Coronavirus OC43 (PCR) Not Detected (Not Detect) Coronavirus HKU1 (PCR) Not Detected (Not Detect) Coronavirus 229E (PCR) Not Detected (Not Detect) Coronavirus NL63 (PCR) Not Detected (Not Detect) Enterobacteriac sp PCR Not Detected (Not Detect) E. cloacae complex PCR Not Detected (Not Detect) Enterococcus sp PCR DETECTED A (Not Detect) E. coli (PCR) Not Detected (Not Detect) H. influenzae (PCR) Not Detected (Not Detect) Human Metapneumovir PCR Not Detected (Not Detect) Influenza A (H1) PCR Not Detected (Not Detect) Influ A (H1N1/09) PCR Not Detected (Not Detect) Influenza A (H3) PCR Not Detected (Not Detect) Influenza A Untype (PCR) Not Detected (Not Detect) Influenza Type B (PCR) Not Detected (Not Detect) Klebsiella oxytoca PCR Not Detected (Not Detect) Klebsiella pneumoniae Not Detected (Not Detect) List. monocytogenes PCR Not Detected (Not Detect) M.pneumoniae DNA (PCR) Not Detected (Not Detect) N. meningitidis (PCR) Not Detected (Not Detect) Parainfluenza 1 (PCR) Not Detected (Not Detect) Parainfluenza 2 (PCR) Not Detected (Not Detect) Parainfluenza 3 (PCR) Not Detected (Not Detect) Parainfluenza 4 (PCR) Not Detected (Not Detect) Proteus species (PCR) Not Detected (Not Detect) RSV (PCR) Not Detected (Not Detect) Entero/Rhino (PCR) Not Detected (Not Detect) Serratia marcescens PCR Not Detected (Not Detect) Staphylococcus sp PCR Not Detected (Not Detect) Staph aureus (PCR) Not Detected (Not Detect) mecA-Methicil Res Gene N/A (Not Detect) Streptococcus sp PCR Not Detected (Not Detect) Group A Strep DNA Not Detected (Not Detect) Group B Strep (PCR) Not Detected (Not Detect) Strep pneumoniae (PCR) Not Detected (Not Detect) P. aeruginosa (PCR) Not Detected (Not Detect) Bryant/B-Vanco Res Genes DETECTED A (Not Detect) KPC (blaKPC) Detect PCR N/A (Not Detect) 06/18/17 06/18/17 06/08/17 Range/Units 10:44 08:41 06:33 Ur Specimen Adequacy Urine Color (Yellow) Urine Clarity (Clear) Urine pH (5.0-8.0) pH Units Ur Specific [place] (1.010-1.025) Urine Protein (Neg-Trace) mg/dL Urine Glucose (UA) (Normal) mg/dL Urine Ketones (Negative) mg/dL Urine Blood (Negative) Urine Nitrite (Negative) Urine Bilirubin (Negative) Urine Urobilinogen (Normal) mg/dL Ur Leukocyte Esterase (Negative) Urine Microscopic RBC (0-3) per hpf Urine Microscopic WBC (0-3) per hpf Ur Squamous Epith Cells (None-Few) per lpf Urine Bacteria (None-Few) per hpf Hyaline Casts (None-Few) per lpf Ur Culture Indicated? (NO) A. baumannii (PCR) Not Detected Not Detected Not Detected (Not Detect) Chlamy pneumoniae PCR (Not Detect) Adenovirus (PCR) (Not Detect) B. pertussis DNA (PCR) (Not Detect) B.parapertussis DNA PCR (Not Detect) Ahnk albicans (PCR) Not Detected Not Detected Not Detected (Not Detect) C. glabrata (PCR) Not Detected DETECTED A Not Detected (Not Detect) C. krusei (PCR) Not Detected Not Detected Not Detected (Not Detect) C. parapsilosis (PCR) Not Detected Not Detected Not Detected (Not Detect) C. tropicalis (PCR) Not Detected Not Detected Not Detected (Not Detect) Coronavirus OC43 (PCR) (Not Detect) Coronavirus HKU1 (PCR) (Not Detect) Coronavirus 229E (PCR) (Not Detect) Coronavirus NL63 (PCR) (Not Detect) Enterobacteriac sp PCR Not Detected Not Detected Not Detected (Not Detect) E. cloacae complex PCR Not Detected Not Detected Not Detected (Not Detect) Enterococcus sp PCR DETECTED A Not Detected Not Detected (Not Detect) E. coli (PCR) Not Detected Not Detected Not Detected (Not Detect) H. influenzae (PCR) Not Detected Not Detected Not Detected (Not Detect) Human Metapneumovir PCR (Not Detect) Influenza A (H1) PCR (Not Detect) Influ A (H1N1/09) PCR (Not Detect) Influenza A (H3) PCR (Not Detect) Influenza A Untype (PCR) (Not Detect) Influenza Type B (PCR) (Not Detect) Klebsiella oxytoca PCR Not Detected Not Detected Not Detected (Not Detect) Klebsiella pneumoniae Not Detected Not Detected Not Detected (Not Detect) List. monocytogenes PCR Not Detected Not Detected Not Detected (Not Detect) M.pneumoniae DNA (PCR) (Not Detect) N. meningitidis (PCR) Not Detected Not Detected Not Detected (Not Detect) Parainfluenza 1 (PCR) (Not Detect) Parainfluenza 2 (PCR) (Not Detect) Parainfluenza 3 (PCR) (Not Detect) Parainfluenza 4 (PCR) (Not Detect) Proteus species (PCR) Not Detected Not Detected Not Detected (Not Detect) RSV (PCR) (Not Detect) Entero/Rhino (PCR) (Not Detect) Serratia marcescens PCR Not Detected Not Detected Not Detected (Not Detect) Staphylococcus sp PCR Not Detected Not Detected DETECTED A (Not Detect ) Staph aureus (PCR) Not Detected Not Detected DETECTED A (Not Detect) mecA-Methicil Res Gene N/A N/A DETECTED A (Not Detect) Streptococcus sp PCR Not Detected Not Detected Not Detected (Not Detect) Group A Strep DNA Not Detected Not Detected Not Detected (Not Detect) Group B Strep (PCR) Not Detected Not Detected Not Detected (Not Detect) Strep pneumoniae (PCR) Not Detected Not Detected Not Detected (Not Detect) P. aeruginosa (PCR) Not Detected Not Detected Not Detected (Not Detect) Bryant/B-Vanco Res Genes DETECTED A N/A Not Detected (Not Detect) KPC (blaKPC) Detect PCR N/A N/A Not Detected (Not Detect) 06/08/17 Range/Units 04:20 Ur Specimen Adequacy Urine Color Dark Yellow (Yellow) Urine Clarity Clear (Clear) Urine pH 6.0 (5.0-8.0) pH Units Ur Specific [place] > 1.030 H (1.010-1.025) Urine Protein 100 H (Neg-Trace) mg/dL Urine Glucose (UA) 100 H (Normal) mg/dL Urine Ketones Negative (Negative) mg/dL Urine Blood Large H (Negative) Urine Nitrite Negative (Negative) Urine Bilirubin Negative (Negative) Urine Urobilinogen Normal (Normal) mg/dL Ur Leukocyte Esterase Small H (Negative) Urine Microscopic RBC (0-3) per hpf Urine Microscopic WBC (0-3) per hpf Ur Squamous Epith Cells (None-Few) per lpf Urine Bacteria (None-Few) per hpf Hyaline Casts (None-Few) per lpf Ur Culture Indicated? YES A (NO) A. baumannii (PCR) (Not Detect) Chlamy pneumoniae PCR (Not Detect) Adenovirus (PCR) (Not Detect) B. pertussis DNA (PCR) (Not Detect) B.parapertussis DNA PCR (Not Detect) Hank albicans (PCR) (Not Detect) C. glabrata (PCR) (Not Detect) C. krusei (PCR) (Not Detect) C. parapsilosis (PCR) (Not Detect) C. tropicalis (PCR) (Not Detect) Coronavirus OC43 (PCR) (Not Detect) Coronavirus HKU1 (PCR) (Not Detect) Coronavirus 229E (PCR) (Not Detect) Coronavirus NL63 (PCR) (Not Detect) Enterobacteriac sp PCR (Not Detect) E. cloacae complex PCR (Not Detect) Enterococcus sp PCR (Not Detect) E. coli (PCR) (Not Detect) H. influenzae (PCR) (Not Detect) Human Metapneumovir PCR (Not Detect) Influenza A (H1) PCR (Not Detect) Influ A (H1N1/09) PCR (Not Detect) Influenza A (H3) PCR (Not Detect) Influenza A Untype (PCR) (Not Detect) Influenza Type B (PCR) (Not Detect) Klebsiella oxytoca PCR (Not Detect) Klebsiella pneumoniae (Not Detect) List. monocytogenes PCR (Not Detect) M.pneumoniae DNA (PCR) (Not Detect) N. meningitidis (PCR) (Not Detect) Parainfluenza 1 (PCR) (Not Detect) Parainfluenza 2 (PCR) (Not Detect) Parainfluenza 3 (PCR) (Not Detect) Parainfluenza 4 (PCR) (Not Detect) Proteus species (PCR) (Not Detect) RSV (PCR) (Not Detect) Entero/Rhino (PCR) (Not Detect) Serratia marcescens PCR (Not Detect) Staphylococcus sp PCR (Not Detect) Staph aureus (PCR) (Not Detect) mecA-Methicil Res Gene (Not Detect) Streptococcus sp PCR (Not Detect) Group A Strep DNA (Not Detect) Group B Strep (PCR) (Not Detect) Strep pneumoniae (PCR) (Not Detect) P. aeruginosa (PCR) (Not Detect) Bryant/B-Vanco Res Genes (Not Detect) KPC (blaKPC) Detect PCR (Not Detect) Exam - Constitutional Vitals: Temp Pulse Resp BP Pulse Ox 98.5 F 101 18 133/80 97 06/21/17 08:40 06/21/17 08:40 06/21/17 08:40 06/21/17 08:40 06/21/17 08:40 - Additional findings Additional findings: General: Pleasant without distress. HEENT: Absent thrush. Heart: Regular rate and rhythm with no murmur Lungs: Clear to auscultation bilaterally Abdomen: Soft, nontender, nondistended, positive bowel sounds. Surgical incision intact, enedina intact, and MARIUSZ drain outputting serosanguineous fluid. Skin: warm and dry Extremities: Absent pedal edema, Neuro: Alert and oriented 3 Vascular: Pedal and radial pulses 2 out of 4 - VTE Documentation of Mechanical Device: Intermittent pneumatic compression device Consult Discharge Plan - Plan Referrals: Kole Barksdale MD [Primary Care Provider] - Michele Mahcuca MD [Non-Partnered Physician] - - Attending Attestation I examined this patient and my medical decision-making was reviewed with the Resident Physician. I agree with the documented findings, disposition and treatment plan as described except to the extent set forth below. Patient presents with a very complex case. DC meropenem and restart cefepime and Flagyl. Meropenem is a controlled antibiotics and we would rather only using and specific cases were ESBL is present. Crucial to use only responsibly because of the antibiotic stewardship and concern for Annmarie drug resistance Continue daptomycin Continue micafungin until the susceptibilities are back We will discuss with the surgery team.
[2017-06-21] MEDS: Ondansetron 4 MG/2 ML VIAL IVP PRN ×2 (09:44→16:36)
[2017-06-21] MEDS: Pantoprazole 40 MG VIAL IVP SCH (09:44)
[2017-06-21] MEDS: *HR* LORazepam 2 MG/ML VIAL IVP PRN ×2 (09:44→16:37)
[2017-06-21] MEDS: Micafungin 100 MG in 0.9 % Sodium Chloride Mini Bag 100 ML IVPB SCH (09:45)
[2017-06-21] MEDS: Nystatin SUSP 5 ML UD.LIQ PO SCH ×4 (09:45→19:57)
[2017-06-21] MEDS: Insulin DETEMIR 100 UNIT/ML X5UNITS SQ SCH ×2 (09:48→19:58)
--- NOTE | 2017-06-21 12:40 | General Surgery Progress Note ---
Date of Encounter: 06/21/17 Time of Encounter: 12:25 Subjective Patient reports: no new complaints Narrative: General Surgery - POD #17 Patient feeling well; voicing no new complaints; nausea persists but it "comes and goes" Maximum temperature in the last 24 hours 99.0; heart rate 88-101; the patient 's tachycardia has predominantly been resolved. Respiratory rate 16-20; SPO2 on 3 L per nasal cannula 99% Lungs: Clear; no obvious abdominal pain on deep inspiration Abdomen: Soft, nontender. Active bowel sounds. Taking in small amounts of full liquids. Midline incision remains clean and dry without further drainage Percutaneously placed drain - approximately 20 mL for calendar day . Urine output: Approximately 1500 mL in the last 24 hours Laboratories: White count 7.2, hemoglobin 8.3 with hematocrit 25.8, platelet count 233,000. Differential has not been ordered H&H is rebounded with diuresis - essentially back to baseline Sodium 133, potassium 3.9, chloride 98, bicarbonate 32. BUN 26, creatinine 0.81. Accu-Cheks 136-175 Impression/plan: Postoperative day 17: Status post acute perforated sigmoid diverticulitis; status post sigmoid colectomy with stapled colocolonic anastomosis. Postoperative course has been extremely stormy due to MRSA bacteremia followed by VRE bacteremia. Continue current antibiotics and antifungals Persistent nausea - oral intake slightly improved; we will continue to taper TPN. Discussed with dietary No new fevers or leukocytosis Objective Vital Signs - Last 8 Hours Temp Pulse Resp BP Pulse Ox 06/21/17 11:57 16 100 06/21/17 10:43 98.4 F 95 18 113/69 96 06/21/17 08:40 98.5 F 101 18 133/80 97 06/21/17 07:36 16 98 06/21/17 04:56 99.0 F 97 14 111/74 98 Intake and Output 06/20/17 06/21/17 06/21/17 23:59 07:59 15:59 Intake Total 490 / 490 360 / 360 Output Total 420 / 420 600 / 600 Balance 70 / 70 -590 / -590 360 / 360 Intake: IV Fluids 10 10 Merrem 500 MG In Water for inj. (sterile) 10 ML @ 200 mls/hr IVP Q8H [facility] Rx#:[id number] Oral 480 / 480 360 / 360 Output: Urine 400 / 400 600 / 600 Wound Drainage 20 0 / 0 Left Lower Anterior Medial 0 / 0 Abdomen Other: Meal Dinner Percent of Meal Consumed 100% 0% Stool Size Smear Stool Color Yellow # Voids 1 Weight 131.134 kg Blood Glucose* 174 91 116 Patient Weight 06/21/17 23:59 Weight 131.134 kg - Labs 06/21/17 04:40 06/21/17 04:40 Diabetes panel 06/21/17 Range/Units 04:40 Sodium 133 L (136-145) mEq/L Potassium 3.9 (3.5-5.1) mEq/L Chloride 98 (98-107) mEq/L Carbon Dioxide 32 H (23-29) mEq/L BUN 26 H (8-23) mg/dL Creatinine 0.81 (0.60-1.20) mg/dL Glucose 95 (70-105) mg/dL Calcium 8.0 L (8.6-10.3) mg/dL Calcium panel 06/21/17 Range/Units 04:40 Calcium 8.0 L (8.6-10.3) mg/dL Phosphorus 2.7 (2.7-4.5) mg/dL Pituitary panel 06/21/17 Range/Units 04:40 Sodium 133 L (136-145) mEq/L Potassium 3.9 (3.5-5.1) mEq/L Chloride 98 (98-107) mEq/L Carbon Dioxide 32 H (23-29) mEq/L BUN 26 H (8-23) mg/dL Creatinine 0.81 (0.60-1.20) mg/dL Glucose 95 (70-105) mg/dL Calcium 8.0 L (8.6-10.3) mg/dL Adrenal panel 06/21/17 Range/Units 04:40 Sodium 133 L (136-145) mEq/L Potassium 3.9 (3.5-5.1) mEq/L Chloride 98 (98-107) mEq/L Carbon Dioxide 32 H (23-29) mEq/L BUN 26 H (8-23) mg/dL Creatinine 0.81 (0.60-1.20) mg/dL Glucose 95 (70-105) mg/dL Calcium 8.0 L (8.6-10.3) mg/dL - VTE Documentation of Mechanical Device: Intermittent pneumatic compression device Consult Discharge Plan - Plan Referrals: Kole Barksdale MD [Primary Care Provider] - Michele Machuca MD [Non-Partnered Physician] -
[2017-06-21] MEDS ORDERED: *HR* OxyCODONE/APAP 10/325 TABLET PO PRN (12:42)
--- NOTE | 2017-06-21 13:13 | Internal Med Progress Note ---
Date of Encounter: 06/21/17 Time of Encounter: 13:10 - Assessment and plan (1) Sepsis Current Visit: Yes Status: Resolved Assessment and plan: Sepsis secondary to VRE, MRSA and yeast bacteremia possibly due to perforated diverticulum POD #17 s/p sigmoid colectomy with stapled colocolonic anastomosis Fever 103.2, heart rate 117 Blood cell count has decreased but now is running fevers Daptomycin day #3, meropenem day #6 Followed by infectious diseases Left subclavian central line was removed [employer] dilaudid Phenergren and Zofran PRN nausea Surgery following Respiratory infection panel was negative (2) MRSA bacteremia Current Visit: Yes Status: Acute Assessment and plan: Blood cultures positive for MRSA bacteremia, had suspected source is PICC line vs central venous line repeat cultures daily ID consulted replaced PICC line ID as suspicion of endocarditis, meets one major and one minor Herrera criteria; will need EMILIE prior to discharge TTE shows ejection fraction of 65-70% with mild tricuspid regurgitation, no vegetations noted (3) Abdominal abscess/ perforated diverticulum Current Visit: Yes Status: Acute Assessment and plan: CT 06/16 revealed enlarging fluid collections suspicious for organizing abscess IR performed percutaneous drainage of abscess 06/17 Awaiting cultures from fluid (4) Acute respiratory failure with hypoxia Current Visit: Yes Status: Acute Assessment and plan: Likely secondary to atelectasis s/p surgery in setting of OHS; she is clinically stable oxygen Continue incentive spirometryd (5) Acute worsening of stage 3 chronic kidney disease Current Visit: Yes Status: Resolved Assessment and plan: Cr back to her baseline Will continue to monitor Cr and electrolytes (6) HTN (hypertension) Current Visit: Yes Status: Chronic Assessment and plan: BP well controlled at this visit recently Hold Losartan for now Continue hydralazine IV PRN hypertension Qualifiers: Hypertension type: essential hypertension Qualified Code(s): I10 - Essential (primary) hypertension (7) Hypothyroidism Current Visit: Yes Status: Chronic Assessment and plan: Continue IV levothyroxine, will transition to PO once she better tolerates orally Qualifiers: Hypothyroidism type: acquired Qualified Code(s): E03.9 - Hypothyroidism, unspecified (8) Cystitis Current Visit: Yes Status: Acute Assessment and plan: ABD CT with thickening of bladder wall and questionable incomplete distention versus cystitis with mild hydronephrosis Continue vanc, radha as above Urology placed ureteral stent during surgery. Should follow up with urology as outpatient for stent removal 3-4 weeks after procedure Urine culture positive for hank, currently on Fluconazole (9) Hydronephrosis Current Visit: Yes Status: Acute Assessment and plan: CT 06/16 showed enlarging hydronephrosis despite stent placement Urology did not feel like intervention as necessary as kidney function has remained stable Qualifiers: Hydronephrosis type: other Qualified Code(s): N13.39 - Other hydronephrosis (10) Obesity Current Visit: Yes Status: Chronic Assessment and plan: BMI 49. lifestyle modifications encouraged as outpatient Qualifiers: Obesity type: due to excess calories Obesity classification: adult class 3 (BMI >= 40) Serious obesity comorbidity presence: without serious comorbidity Body mass index: BMI 45.0-49.9 Qualified Code(s): E66.01 - Morbid (severe) obesity due to excess calories; Z68.42 - Body mass index (BMI) 45.0-49.9, adult ; Z68.42 - Body mass index (BMI) 45.0-49.9, adult; Z68.42 - Body mass index (BMI ) 45.0-49.9, adult; Z68.42 - Body mass index (BMI) 45.0-49.9, adult Qualifiers: Sepsis type: methicillin resistant Staphylococcus aureus Qualified Code(s) : A41.02 - Sepsis due to Methicillin resistant Staphylococcus aureus - Subjective Interval history: Patient is feeling much better. Abdominal pain has improved. Had a fevers of 103.2 on 06/19/17, complaining of a cough and pain everywhere, abdominal discomfort, severe weakness, headache, runny nose - Constitutional Vitals: Temp Pulse Resp BP Pulse Ox 98.4 F 95 16 113/69 100 06/21/17 10:43 06/21/17 10:43 06/21/17 11:57 06/21/17 10:43 06/21/17 11:57 General appearance: Present: cooperative, A&O X 3, pleasant, no acute distress, obese, answers questions appropriately Exam: Head Head exam: Present: atraumatic, normocephalic - Eye Eye exam: Present: PERRL, conjuntiva pink, sclera anicteric Pupils: Present: PERRL - Neck Neck exam general surgery: Present: supple, trachea midline. Absent: lymphadenopathy Additional comments: Right upper extremity PICC line - Respiratory Respiratory exam: Present: CTAB. Absent: accessory muscle use, rales, rhonchi, wheezes - Cardiovascular Cardiovascular exam: Present: RRR, +S1, +S2. Absent: diastolic murmur, gallop, rubs, systolic murmur - GI/Abdominal GI/Abdominal exam: Present: normal bowel sounds, soft, no peritoneal signs. Absent: distended, tenderness Additional comments: Abdominal drain in place Surgical abdominal wounds without signs of infection - Extremities Exam Extremities exam: Present: warm, radial pulses palpable and symmetrical. Absent : calf tenderness, cyanotic, pedal edema Additional comments: +1 pitting edema in both lower extremities - Neurological Exam Neurological exam: Present: CN II-XII intact, oriented X3, no focal deficits. Absent: pronater drift, facial droop, speech deficit - Skin Skin exam: Present: dry, intact Internal Medicine: Result - Labs CBC & Chem 7: 06/21/17 04:40 06/21/17 04:40 Labs: Short CBC 06/21/17 Range/Units 04:40 WBC 7.2 (4.3-11.1) K/mcL Hgb 8.3 L (11.5-15.4) g/dL Hct 25.8 L (35.3-44.9) % Plt Count 233 (140-400) K/mcL BMP 06/21/17 04:40 Sodium 133 L Potassium 3.9 Chloride 98 Carbon Dioxide 32 H BUN 26 H Creatinine 0.81 Glucose 95 Calcium 8.0 L - ABG Interpretation ABG results: ABG ABG pH 7.43 pH Units (7.32-7.45) 06/08/17 04:24 ABG pCO2 35 mmHg (35-45) 06/08/17 04:24 ABG pO2 72 mmHg (85-104) L 06/08/17 04:24 ABG O2 Saturation 95 % (95-98) 06/08/17 04:24 PT/INR, D-dimer PT 16.4 Seconds (9.4-12.1) H 06/17/17 06:18 - VTE Documentation of Mechanical Device: Intermittent pneumatic compression device Consult Discharge Plan - Plan Referrals: Kole Barksdale MD [Primary Care Provider] - Michele Machuca MD [Non-Partnered Physician] -
[2017-06-21] MEDS: DAPTOMYCIN IVPB SCH (16:37)
[2017-06-21] MEDS: SODIUM CHLORIDE 0.9% IVPB SCH (16:37)
[2017-06-21] MEDS ORDERED: Clinimix E 5%-15% SOLUTION 2,000 ML with MVI, adult with vitamin K 10 ML IVC SCH (17:00)
[2017-06-21] MEDS: Clinimix E 5%-15% SOLUTION 2,000 ML, Parenteral Amino Acid 10% 200 ML with MVI, adult ... IVC SCH (17:11)
[2017-06-21 19:10] LABS: Acinetobacter baumannii by PCR Not Detected (Not Detect); Candida albicans by PCR Not Detected (Not Detect); Candida glabrata by PCR ***DETECTED*** (Not Detect); Candida krusei by PCR Not Detected (Not Detect); Candida parapsilosis by PCR Not Detected (Not Detect); Candida tropicalis by PCR Not Detected (Not Detect); Enterococcus by PCR Not Detected (Not Detect); Escherichia coli by PCR Not Detected (Not Detect); Klebsiella oxytoca by PCR Not Detected (Not Detect); Klebsiella pneumoniae by PCR Not Detected (Not Detect); Pseudomonas aeruginosa by PCR Not Detected (Not Detect); Serratia marcescens by PCR Not Detected (Not Detect); Staphylococcus aureus by PCR Not Detected (Not Detect); Streptococcus agalactiae(B)PCR Not Detected (Not Detect); Streptococcus by PCR Not Detected (Not Detect); Streptococcus pneumoniae PCR Not Detected (Not Detect); Streptococcus pyogenes (A) PCR Not Detected (Not Detect); blaKPC Carbapenem-Resist Gene Not Detected (Not Detect); mecA Methicillin-Resist Gene Not Detected (Not Detect); vanA/B Vancomycin-Resist Genes Not Detected (Not Detect)
[2017-06-21 19:15] LABS: Acinetobacter baumannii by PCR Not Detected (Not Detect); Candida albicans by PCR Not Detected (Not Detect); Candida krusei by PCR Not Detected (Not Detect); Candida parapsilosis by PCR Not Detected (Not Detect); Candida tropicalis by PCR Not Detected (Not Detect); Enterococcus by PCR Not Detected (Not Detect); Escherichia coli by PCR Not Detected (Not Detect); Klebsiella oxytoca by PCR Not Detected (Not Detect); Klebsiella pneumoniae by PCR Not Detected (Not Detect); Pseudomonas aeruginosa by PCR Not Detected (Not Detect); Serratia marcescens by PCR Not Detected (Not Detect); Staphylococcus aureus by PCR Not Detected (Not Detect); Streptococcus agalactiae(B)PCR Not Detected (Not Detect); Streptococcus by PCR Not Detected (Not Detect); Streptococcus pneumoniae PCR Not Detected (Not Detect); Streptococcus pyogenes (A) PCR Not Detected (Not Detect)
[2017-06-21 19:16] LABS: Candida glabrata by PCR ***DETECTED*** (Not Detect)
--- NOTE | 2017-06-21 19:56 | Event Note ---
Date of Encounter: 06/21/17 Time of Encounter: 19:48 RN called us with + blood culture results for MRSA, VRE, and Jayna Albicans. I reviewed antibiotics with pharmacy and culture sensitivities. MRSA sensitive to Daptomycin, but VRE was not tested against it. As such, pharmacy and I agree we should give a one time dose of Zyvox tonight and allow ID to make further antibiotics changes as necessary tomorrow. I therefore ordered a one time dose Zyvox for tonight. Further antibiotic changes per ID tomorrow.
[2017-06-21] MEDS: Acetaminophen 325 MG TABLET PO PRN (19:57)
[2017-06-21] MEDS ORDERED: 0.9 % Sodium Chloride 1,000 ML ONE (20:23)
[2017-06-21] MEDS: MetroNIDAZOLE 500 MG/100 ML 500 MG/100 ML BAG IVPB SCH (23:38)
[2017-06-22] MEDS: Insulin LISPRO 300 UNITS/3 ML VIAL SQ SCH ×6 (00:40→20:14)
[2017-06-22] MEDS: Albuterol 2.5 MG/3 ML NEBULIZER IH SCH ×5 (04:04→19:37)
[2017-06-22] MEDS: Ondansetron 4 MG/2 ML VIAL IVP PRN ×3 (05:53→20:38)
[2017-06-22] MEDS: Levothyroxine Sodium 100 MCG VIAL IVP SCH (05:55)
[2017-06-22] MEDS: *HR* Heparin 5,000 UNIT/ML VIAL SQ SCH ×2 (05:58→16:42)
[2017-06-22] MEDS: Pantoprazole 40 MG VIAL IVP SCH (08:29)
[2017-06-22] MEDS: Insulin DETEMIR 100 UNIT/ML X5UNITS SQ SCH (08:29)
[2017-06-22] MEDS: MetroNIDAZOLE 500 MG/100 ML 500 MG/100 ML BAG IVPB SCH ×3 (08:29→23:44)
[2017-06-22 08:42] LABS: Hematocrit 24.1 % (35.3-44.9); Hemoglobin 7.7 g/dL (11.5-15.4); Immature Platelets 1.9 % (1.1-6.1); Mean Corpuscular Hemoglobin 29.1 pg (28.0-33.3); Mean Corpuscular Volume 90.9 fL (83.0-100.0); Mean Platelet Volume 9.5 fL (9.4-12.4); Platelet Count 243 K/mcL (140-400); Red Blood Count 2.65 M/mcL (3.82-4.97); Red Cell Distribution Width 14.6 % (11.5-14.5)
--- NOTE | 2017-06-22 09:15 | Infectious Disease Progress No ---
Date of Encounter: 06/22/17 Time of Encounter: 09:13 - Assessment and Plan (1) Sepsis Status: Resolved Presented with 3 SIRS criteria. tachycardia, febrile leukocytosis resolved. Secondary to complicated diverticulitis, and MRSA bacteremia, fungal bacteremia , VRE bacteremia, UTI 2nd to hank albicans and Hank glabrata Qualifiers: Sepsis type: methicillin resistant Staphylococcus aureus Qualified Code(s) : A41.02 - Sepsis due to Methicillin resistant Staphylococcus aureus (2) Perforated diverticulum Status: Resolved Patient presented with acute onset of sharp abdominal pain. Has history of sigmoid diverticulitis. CT abdomen on 05/29 showed pneumoperitoneum with diverticulitis of sigmoid colon. Patient underwent exploratory celiotomy with sigmoid colectomy on 06/04/17. She had a PICC line and subclavian CVC placed and confirmed by chest x-ray on . Patient was also started on Cipro and Flagyl on 05/29. patient became febrie 06/09, with worsening leukocytosis and antibiotics were broadened to vancomycin and cefepime and Flagyl as continued. blood Cultures on are negative. fever of 102.1 on 06/11/17 and primary team started patient on Micafungin 100mg daily. CT abdomen/pelvis 06/11 increasing fluid collections along abdominal incision, and multiloculated fluid loculations throughout the abdomen and pelvis increased in size and organizing, decreased pneumoperitoneum 06/14/18 micafungin d/c and patient started on diflucan CT 18 notes increased size of abscess to drain 10.7 cm within the abdomen. Worsening right hydronephrosis. An worsening seroma below incision measuring 4.1 x 5.6 cm. Status post percutaneous drainage of abdominal abscess by IR 06/17/2017: Cultures have grown MRSA, VRE, pansensitive Hank albicans Repeat blood cultures: 06/18/17 peripheral blood cultures grew yeast (2/2 cultures ) and VRE (1/2 cultures) 06/19/17 peripheral cultures growing yeast 06/19/17 central venous catheter tip culture preliminary negative CT 06/19/2017 shows improvement of previous abdominal abscess. Continued small pockets of fluid collections throughout the abdomen and pelvis. Persistent pneumoperitoneum persistent moderate right hydronephrosis and hydroureter in the presence of nephroureteral stent and slight interval decrease in size of fluid collection within the subcutaneous fat of the midline anterior abdominal wall. reports abdominal pain today with tenderness to palpation of LLQ. febrile overnight. Plan: continue cefepime 2000mg Q8h and flagyl 500mg Q8h again. continue micafungin 100MG daily. Antibiotic duration depends on clinical picture. (3) VRE bacteremia Status: Resolved 06/19/17 CVC blood culture + for VRE Patient was switched to daptomycin over the weekend. CK is 31. Creatinine clearance is 99. overnight team gave patient one dose of linezolid. Linozolid is not protein bound and not 1st choice for VRE bacteremia. repeat blood cultures collected 06/21/2017. continue daptomycin. antibiotic duration depends of clinical picture and results of blood culture. (4) MRSA bacteremia Status: Resolved Complicated MRSA bacteremia patient had left knee prosthetic joint Blood cultures from 06/08 from subclavian CVC and PICC line are positive for MRSA. Patient started on vancomycin and cefepime on 06/08 Since starting vancomycin patient's white blood cell count has improved from 15.1-10.9. Last trough of vancomycin was 18.3. Patient had repeat blood cultures drawn CvC, PICC and peripheral 06/10/17 all negative x6. PICC line culture of tip negative TTE: LVEF 65-70% mild tricuspid regurgiations, no vavular vegetations are noted vanc trough 17 kidney function stable Repeat peripheral blood cultures 06/18/17 and 06/19/17 are negative for MRSA. Left subclavian CVC culture tip negative preliminarily Left subclavian CVC blood culture on's 06/19/17 positive for yeast species and VRE Subclavian CVC has been removed. PICC has been placed in the right upper extremity:Repeat blood cultures ordered. Plan: continue daptomycin. Antibiotic duration will be determined by results of EMILIE, which patient will obtain once deemed by primary team to be stable for procedure. (5) Hypoxia Status: Resolved stable patient requiring O2 supplementation since being admitted O2 requirement 3L on lung exam clear anteriorly CXR 06/10/17 negative for pleural effusion, consolidation. Free air under the right hemidiaphragm noted again unchanged. sob unchanged from yesterday plan as per primary (6) UTI (urinary tract infection) Status: Resolved 06/13 urine culture Hank albicans and glabrata harry d/c glabrata sensitivites ordered. patient reports urge incontinence which has improved. continue:patient on micafungin 100mg daily Qualifiers: Urinary tract infection type: acute cystitis Hematuria presence: without hematuria Qualified Code(s): N30.00 - Acute cystitis without hematuria (7) Hydronephrosis Status: Resolved Discovered on CT abdomen 06/02 which showed right hydroureter with right ureteritis and bilateral pyelitis Underwent on 06/04/17 right ureteral stent placement and left ureteral catheter placement by urology. Patient has had 2 urine cultures which have been negative for growth. Urinalysis does not indicate any signs of infection. Patient has a Harry catheter out pitting light red urine. Likely secondary to urologic procedure. Patient is on broad-spectrum antibiotics, vancomycin, cefepime which will cover urinary tract infection. Repeat CT abdomen and pelvis on 06/07 showed improvement of right hydronephrosis and stable stent placement. Repeat CT at 06/16/2017 shows worsening right hydronephrosis. Urology reports no additional intervention needed at this point. Qualifiers: Hydronephrosis type: other Qualified Code(s): N13.39 - Other hydronephrosis (8) Hypothyroidism Status: Chronic As per primary. Qualifiers: Hypothyroidism type: acquired Qualified Code(s): E03.9 - Hypothyroidism, unspecified (9) HTN (hypertension) Status: Chronic controlled. Qualifiers: Hypertension type: essential hypertension Qualified Code(s): I10 - Essential (primary) hypertension (10) DVT prophylaxis Status: Acute heparin SQ - Subjective Interval history: Patient reports felling "rough" this morning. She was febrile overnight 102 deg F. Reports her pain pump was d/c this morning and requests pain medication. Pain is located mid abdomen. 11/23. Denies nausea. Tolerating her diet. Having BMs. Denies urinary symptoms. Reports zero episodes of urge incontinenece. Infect Dis PN-Objective Data - Labs CBC & Chem 7: 06/30/17 06:42 06/30/17 06:42 Labs: Laboratory Results - last 24 hr 06/19/17 06/19/17 06/21/17 00:20 09:12 15:17 WBC RBC Hgb Hct MCV MCH MCHC RDW Plt Count MPV Immature Plt Fraction POC Glucose 116 H A. baumannii (PCR) Not Detected Not Detected Hank albicans (PCR) Not Detected Not Detected C. glabrata (PCR) DETECTED A DETECTED A C. krusei (PCR) Not Detected Not Detected C. parapsilosis (PCR) Not Detected Not Detected C. tropicalis (PCR) Not Detected Not Detected Enterobacteriac sp PCR Not Detected Not Detected E. cloacae complex PCR Not Detected Not Detected Enterococcus sp PCR Not Detected Not Detected E. coli (PCR) Not Detected Not Detected H. influenzae (PCR) Not Detected Not Detected Klebsiella oxytoca PCR Not Detected Not Detected Klebsiella pneumoniae Not Detected Not Detected List. monocytogenes PCR Not Detected Not Detected N. meningitidis (PCR) Not Detected Not Detected Proteus species (PCR) Not Detected Not Detected Serratia marcescens PCR Not Detected Not Detected Staphylococcus sp PCR Not Detected Not Detected Staph aureus (PCR) Not Detected Not Detected mecA-Methicil Res Gene Not Detected N/A Streptococcus sp PCR Not Detected Not Detected Group A Strep DNA Not Detected Not Detected Group B Strep (PCR) Not Detected Not Detected Strep pneumoniae (PCR) Not Detected Not Detected P. aeruginosa (PCR) Not Detected Not Detected Bryant/B-Vanco Res Genes Not Detected N/A KPC (blaKPC) Detect PCR Not Detected N/A 06/21/17 06/22/17 06/22/17 19:55 00:08 04:50 WBC 6.6 RBC 2.65 L Hgb 7.7 L Hct 24.1 L MCV 90.9 MCH 29.1 MCHC 32.0 RDW 14.6 H Plt Count 243 MPV 9.5 Immature Plt Fraction 1.9 POC Glucose 137 H 152 H A. baumannii (PCR) Hank albicans (PCR) C. glabrata (PCR) C. krusei (PCR) C. parapsilosis (PCR) C. tropicalis (PCR) Enterobacteriac sp PCR E. cloacae complex PCR Enterococcus sp PCR E. coli (PCR) H. influenzae (PCR) Klebsiella oxytoca PCR Klebsiella pneumoniae List. monocytogenes PCR N. meningitidis (PCR) Proteus species (PCR) Serratia marcescens PCR Staphylococcus sp PCR Staph aureus (PCR) mecA-Methicil Res Gene Streptococcus sp PCR Group A Strep DNA Group B Strep (PCR) Strep pneumoniae (PCR) P. aeruginosa (PCR) Bryant/B-Vanco Res Genes KPC (blaKPC) Detect PCR 06/22/17 06/22/17 04:55 06:59 WBC RBC Hgb Hct MCV MCH MCHC RDW Plt Count MPV Immature Plt Fraction POC Glucose 88 110 H A. baumannii (PCR) Hank albicans (PCR) C. glabrata (PCR) C. krusei (PCR) C. parapsilosis (PCR) C. tropicalis (PCR) Enterobacteriac sp PCR E. cloacae complex PCR Enterococcus sp PCR E. coli (PCR) H. influenzae (PCR) Klebsiella oxytoca PCR Klebsiella pneumoniae List. monocytogenes PCR N. meningitidis (PCR) Proteus species (PCR) Serratia marcescens PCR Staphylococcus sp PCR Staph aureus (PCR) mecA-Methicil Res Gene Streptococcus sp PCR Group A Strep DNA Group B Strep (PCR) Strep pneumoniae (PCR) P. aeruginosa (PCR) Bryant/B-Vanco Res Genes KPC (blaKPC) Detect PCR Cultures: Cultures 06/19/17 09:12 Blood Culture - Preliminary Central Venous Catheter Vancomycin Resistant Enterococcus faecium Yeast Species 06/18/17 10:44 Blood Culture - Preliminary Peripheral Venipuncture Vancomycin Resistant Enterococcus faecium Yeast Species 06/19/17 00:20 Blood Culture - Preliminary Peripheral Venipuncture Yeast Species 06/18/17 08:41 Blood Culture - Preliminary Peripheral Venipuncture Yeast Species 06/13/17 04:38 Urine Culture - Preliminary Urine,[place] Hank albicans Hank glabrata 06/20/17 10:06 Blood Culture - Preliminary Peripheral Venipuncture No growth. 06/21/17 04:40 Blood Culture - Preliminary Central Venous Catheter No growth. 06/20/17 10:15 Blood Culture - Preliminary Peripheral Central Cath, Picc No growth. 06/19/17 11:35 Catheter Tip Culture - Preliminary Intravenous or Arterial Cath No growth. 06/17/17 11:20 Body Fluid Culture - Final Other-Specify in Comments Hank albicans Methicillin Resistant S.aureus Enterococcus faecium 06/19/17 00:26 Blood Culture - Preliminary Peripheral Venipuncture No growth. 06/12/17 20:08 Blood Culture - Final Peripheral Venipuncture No growth. 06/10/17 05:45 Blood Culture - Final Peripheral Central Cath, Picc No growth. 06/10/17 05:41 Blood Culture - Final Peripheral Venipuncture No growth. 06/10/17 11:35 Blood Culture - Final Peripheral Central Cath, Picc No growth. 06/10/17 05:45 Blood Culture - Final Central Venous Catheter No growth. 06/10/17 05:46 Blood Culture - Final Peripheral Venipuncture No growth. 06/10/17 11:35 Blood Culture - Final Central Venous Catheter No growth. 06/10/17 16:40 Catheter Tip Culture - Final Intravenous or Arterial Cath No growth. 06/08/17 06:33 Blood Culture - Final Peripheral Central Cath, Picc Methicillin Resistant S.aureus 06/08/17 06:33 Blood Culture - Final Central Venous Catheter Methicillin Resistant S.aureus 06/08/17 04:20 Urine Culture - Final Urine,Clean Catch No significant growth. 06/03/17 09:25 Urine Culture - Final Urine,[place] No growth. 05/30/17 09:56 Blood Culture - Final Peripheral Venipuncture No growth. 05/30/17 10:10 Blood Culture - Final Peripheral Venipuncture No growth. Serology 06/19/17 06/19/17 06/19/17 Range/Units 16:10 09:12 09:12 Ur Specimen Adequacy Urine Color Yellow (Yellow) Urine Clarity Clear (Clear) Urine pH 6.5 (5.0-8.0) pH Units Ur Specific [place] 1.021 (1.010-1.025) Urine Protein 30 H (Neg-Trace) mg/dL Urine Glucose (UA) Normal (Normal) mg/dL Urine Ketones Negative (Negative) mg/dL Urine Blood Large H (Negative) Urine Nitrite Negative (Negative) Urine Bilirubin Negative (Negative) Urine Urobilinogen Normal (Normal) mg/dL Ur Leukocyte Esterase Negative (Negative) Urine Microscopic RBC 0-3 (0-3) per hpf Urine Microscopic WBC 0-3 (0-3) per hpf Ur Squamous Epith Cells Many H (None-Few) per lpf Urine Bacteria None Seen (None-Few) per hpf Hyaline Casts None Seen (None-Few) per lpf Ur Culture Indicated? NO (NO) A. baumannii (PCR) Not Detected Not Detected (Not Detect) Chlamy pneumoniae PCR (Not Detect) Adenovirus (PCR) (Not Detect) B. pertussis DNA (PCR) (Not Detect) B.parapertussis DNA PCR (Not Detect) Hank albicans (PCR) Not Detected Not Detected (Not Detect) C. glabrata (PCR) DETECTED A DETECTED A (Not Detect) C. krusei (PCR) Not Detected Not Detected (Not Detect) C. parapsilosis (PCR) Not Detected DETECTED A (Not Detect) C. tropicalis (PCR) Not Detected Not Detected (Not Detect) Coronavirus OC43 (PCR) (Not Detect) Coronavirus HKU1 (PCR) (Not Detect) Coronavirus 229E (PCR) (Not Detect) Coronavirus NL63 (PCR) (Not Detect) Enterobacteriac sp PCR Not Detected Not Detected (Not Detect) E. cloacae complex PCR Not Detected Not Detected (Not Detect) Enterococcus sp PCR Not Detected DETECTED A (Not Detect) E. coli (PCR) Not Detected Not Detected (Not Detect) H. influenzae (PCR) Not Detected Not Detected (Not Detect) Human Metapneumovir PCR (Not Detect) Influenza A (H1) PCR (Not Detect) Influ A (H1N1/09) PCR (Not Detect) Influenza A (H3) PCR (Not Detect) Influenza A Untype (PCR) (Not Detect) Influenza Type B (PCR) (Not Detect) Klebsiella oxytoca PCR Not Detected Not Detected (Not Detect) Klebsiella pneumoniae Not Detected Not Detected (Not Detect) List. monocytogenes PCR Not Detected Not Detected (Not Detect) M.pneumoniae DNA (PCR) (Not Detect) N. meningitidis (PCR) Not Detected Not Detected (Not Detect) Parainfluenza 1 (PCR) (Not Detect) Parainfluenza 2 (PCR) (Not Detect) Parainfluenza 3 (PCR) (Not Detect) Parainfluenza 4 (PCR) (Not Detect) Proteus species (PCR) Not Detected Not Detected (Not Detect) RSV (PCR) (Not Detect) Entero/Rhino (PCR) (Not Detect) Serratia marcescens PCR Not Detected Not Detected (Not Detect) Staphylococcus sp PCR Not Detected Not Detected (Not Detect) Staph aureus (PCR) Not Detected Not Detected (Not Detect) mecA-Methicil Res Gene N/A N/A (Not Detect) Streptococcus sp PCR Not Detected Not Detected (Not Detect) Group A Strep DNA Not Detected Not Detected (Not Detect) Group B Strep (PCR) Not Detected Not Detected (Not Detect) Strep pneumoniae (PCR) Not Detected Not Detected (Not Detect) P. aeruginosa (PCR) Not Detected Not Detected (Not Detect) Bryant/B-Vanco Res Genes N/A DETECTED A (Not Detect) KPC (blaKPC) Detect PCR N/A N/A (Not Detect) 06/19/17 06/19/17 06/18/17 Range/Units 09:12 00:20 10:44 Ur Specimen Adequacy Urine Color (Yellow) Urine Clarity (Clear) Urine pH (5.0-8.0) pH Units Ur Specific [place] (1.010-1.025) Urine Protein (Neg-Trace) mg/dL Urine Glucose (UA) (Normal) mg/dL Urine Ketones (Negative) mg/dL Urine Blood (Negative) Urine Nitrite (Negative) Urine Bilirubin (Negative) Urine Urobilinogen (Normal) mg/dL Ur Leukocyte Esterase (Negative) Urine Microscopic RBC (0-3) per hpf Urine Microscopic WBC (0-3) per hpf Ur Squamous Epith Cells (None-Few) per lpf Urine Bacteria (None-Few) per hpf Hyaline Casts (None-Few) per lpf Ur Culture Indicated? (NO) A. baumannii (PCR) Not Detected Not Detected (Not Detect) Chlamy pneumoniae PCR Not Detected (Not Detect) Adenovirus (PCR) Not Detected (Not Detect) B. pertussis DNA (PCR) Not Detected (Not Detect) B.parapertussis DNA PCR Not Detected (Not Detect) Hank albicans (PCR) Not Detected Not Detected (Not Detect) C. glabrata (PCR) DETECTED A Not Detected (Not Detect) C. krusei (PCR) Not Detected Not Detected (Not Detect) C. parapsilosis (PCR) Not Detected Not Detected (Not Detect) C. tropicalis (PCR) Not Detected Not Detected (Not Detect) Coronavirus OC43 (PCR) Not Detected (Not Detect) Coronavirus HKU1 (PCR) Not Detected (Not Detect) Coronavirus 229E (PCR) Not Detected (Not Detect) Coronavirus NL63 (PCR) Not Detected (Not Detect) Enterobacteriac sp PCR Not Detected Not Detected (Not Detect) E. cloacae complex PCR Not Detected Not Detected (Not Detect) Enterococcus sp PCR Not Detected DETECTED A (Not Detect) E. coli (PCR) Not Detected Not Detected (Not Detect) H. influenzae (PCR) Not Detected Not Detected (Not Detect) Human Metapneumovir PCR Not Detected (Not Detect) Influenza A (H1) PCR Not Detected (Not Detect) Influ A (H1N1/09) PCR Not Detected (Not Detect) Influenza A (H3) PCR Not Detected (Not Detect) Influenza A Untype (PCR) Not Detected (Not Detect) Influenza Type B (PCR) Not Detected (Not Detect) Klebsiella oxytoca PCR Not Detected Not Detected (Not Detect) Klebsiella pneumoniae Not Detected Not Detected (Not Detect) List. monocytogenes PCR Not Detected Not Detected (Not Detect) M.pneumoniae DNA (PCR) Not Detected (Not Detect) N. meningitidis (PCR) Not Detected Not Detected (Not Detect) Parainfluenza 1 (PCR) Not Detected (Not Detect) Parainfluenza 2 (PCR) Not Detected (Not Detect) Parainfluenza 3 (PCR) Not Detected (Not Detect) Parainfluenza 4 (PCR) Not Detected (Not Detect) Proteus species (PCR) Not Detected Not Detected (Not Detect) RSV (PCR) Not Detected (Not Detect) Entero/Rhino (PCR) Not Detected (Not Detect) Serratia marcescens PCR Not Detected Not Detected (Not Detect) Staphylococcus sp PCR Not Detected Not Detected (Not Detect) Staph aureus (PCR) Not Detected Not Detected (Not Detect) mecA-Methicil Res Gene Not Detected N/A (Not Detect) Streptococcus sp PCR Not Detected Not Detected (Not Detect) Group A Strep DNA Not Detected Not Detected (Not Detect) Group B Strep (PCR) Not Detected Not Detected (Not Detect) Strep pneumoniae (PCR) Not Detected Not Detected (Not Detect) P. aeruginosa (PCR) Not Detected Not Detected (Not Detect) Bryant/B-Vanco Res Genes Not Detected DETECTED A (Not Detect) KPC (blaKPC) Detect PCR Not Detected N/A (Not Detect) 06/18/17 06/08/17 06/08/17 Range/Units 08:41 06:33 04:20 Ur Specimen Adequacy Urine Color Dark Yellow (Yellow) Urine Clarity Clear (Clear) Urine pH 6.0 (5.0-8.0) pH Units Ur Specific [place] > 1.030 H (1.010-1.025) Urine Protein 100 H (Neg-Trace) mg/dL Urine Glucose (UA) 100 H (Normal) mg/dL Urine Ketones Negative (Negative) mg/dL Urine Blood Large H (Negative) Urine Nitrite Negative (Negative) Urine Bilirubin Negative (Negative) Urine Urobilinogen Normal (Normal) mg/dL Ur Leukocyte Esterase Small H (Negative) Urine Microscopic RBC (0-3) per hpf Urine Microscopic WBC (0-3) per hpf Ur Squamous Epith Cells (None-Few) per lpf Urine Bacteria (None-Few) per hpf Hyaline Casts (None-Few) per lpf Ur Culture Indicated? YES A (NO) A. baumannii (PCR) Not Detected Not Detected (Not Detect) Chlamy pneumoniae PCR (Not Detect) Adenovirus (PCR) (Not Detect) B. pertussis DNA (PCR) (Not Detect) B.parapertussis DNA PCR (Not Detect) Hank albicans (PCR) Not Detected Not Detected (Not Detect) C. glabrata (PCR) DETECTED A Not Detected (Not Detect) C. krusei (PCR) Not Detected Not Detected (Not Detect) C. parapsilosis (PCR) Not Detected Not Detected (Not Detect) C. tropicalis (PCR) Not Detected Not Detected (Not Detect) Coronavirus OC43 (PCR) (Not Detect) Coronavirus HKU1 (PCR) (Not Detect) Coronavirus 229E (PCR) (Not Detect) Coronavirus NL63 (PCR) (Not Detect) Enterobacteriac sp PCR Not Detected Not Detected (Not Detect) E. cloacae complex PCR Not Detected Not Detected (Not Detect) Enterococcus sp PCR Not Detected Not Detected (Not Detect) E. coli (PCR) Not Detected Not Detected (Not Detect) H. influenzae (PCR) Not Detected Not Detected (Not Detect) Human Metapneumovir PCR (Not Detect) Influenza A (H1) PCR (Not Detect) Influ A (H1N1/09) PCR (Not Detect) Influenza A (H3) PCR (Not Detect) Influenza A Untype (PCR) (Not Detect) Influenza Type B (PCR) (Not Detect) Klebsiella oxytoca PCR Not Detected Not Detected (Not Detect) Klebsiella pneumoniae Not Detected Not Detected (Not Detect) List. monocytogenes PCR Not Detected Not Detected (Not Detect) M.pneumoniae DNA (PCR) (Not Detect) N. meningitidis (PCR) Not Detected Not Detected (Not Detect) Parainfluenza 1 (PCR) (Not Detect) Parainfluenza 2 (PCR) (Not Detect) Parainfluenza 3 (PCR) (Not Detect) Parainfluenza 4 (PCR) (Not Detect) Proteus species (PCR) Not Detected Not Detected (Not Detect) RSV (PCR) (Not Detect) Entero/Rhino (PCR) (Not Detect) Serratia marcescens PCR Not Detected Not Detected (Not Detect) Staphylococcus sp PCR Not Detected DETECTED A (Not Detect) Staph aureus (PCR) Not Detected DETECTED A (Not Detect) mecA-Methicil Res Gene N/A DETECTED A (Not Detect) Streptococcus sp PCR Not Detected Not Detected (Not Detect) Group A Strep DNA Not Detected Not Detected (Not Detect) Group B Strep (PCR) Not Detected Not Detected (Not Detect) Strep pneumoniae (PCR) Not Detected Not Detected (Not Detect) P. aeruginosa (PCR) Not Detected Not Detected (Not Detect) Bryant/B-Vanco Res Genes N/A Not Detected (Not Detect) KPC (blaKPC) Detect PCR N/A Not Detected (Not Detect) Exam - Constitutional Vitals: Temp Pulse Resp BP Pulse Ox 98.4 F 100 16 142/84 98 06/22/17 06:40 06/22/17 06:40 06/22/17 08:02 06/22/17 06:40 06/22/17 08:02 - Additional findings Additional findings: General: Pleasant without distress. HEENT: Absent thrush. Heart: Regular rate and rhythm with no murmur Lungs: Clear to auscultation bilaterally Abdomen: Soft, tender LLQ, nondistended, positive bowel sounds. Surgical incision intact, enedina intact, and MARIUSZ drain outputting serosanguineous fluid 5cc in bag. Skin: warm and dry Extremities: Absent pedal edema, Neuro: Alert and oriented 3 Vascular: Pedal and radial pulses 2 out of 4 - VTE Documentation of Mechanical Device: Intermittent pneumatic compression device Consult Discharge Plan - Plan Instructions: Diverticulitis (DC) Additional Instructions: Follow-up with your primary care provider within one week of discharge take all antibiotics as prescribed with home health follow-up with infectious disease follow-up with surgery return to the emergency department immediately if you develop fever, chills, chest pain, shortness of breath. Referrals: Kole Barksdale MD [Primary Care Provider] - 07/07/17 1:15 pm Michele Machuca MD [Non-Partnered Physician] - (Office will call with appointment. Thank you) Deepthi Mauricio MD [Partnered Physician] - 07/05/17 1:00 pm (Office will call with appointment. Thank you) Prescriptions: DAPTOmycin [Cubicin] 820 mg IVPB Q24H #6 vial Fluconazole 400 MG/200 ML [Diflucan Premix 400 MG/200 ML] 400 mg IVPB Q24H #6 bag Moxifloxacin HCl [Avelox] 400 mg PO Q24H #6 tablet - Attending Attestation I examined this patient and my medical decision-making was reviewed with the Resident Physician. I agree with the documented findings, disposition and treatment plan as described except to the extent set forth below. patient seen and examined. Agree with above
[2017-06-22 09:23] LABS: Monocytes # 1.1 K/mcL (0.0-1.3); Neutrophils # 3.6 K/mcL (1.6-8.9)
[2017-06-22 09:24] LABS: Platelet Estimate Normal (Normal); Reactive Lymphocytes Present (Not Present)
[2017-06-22 09:27] LABS: BUN/Creatinine Ratio 32 (6-26); Blood Urea Nitrogen 25 mg/dL (8-23); Carbon Dioxide 30 mEq/L (23-29); Chloride 101 mEq/L (98-107); Creatine Kinase 23 Units/L (30-223); Glucose 82 mg/dL (70-105); Magnesium 2.1 mg/dL (1.6-2.6); Osmolality,Calculated 279 (280-300); Phosphorous 3.1 mg/dL (2.7-4.5); Sodium 133 mEq/L (136-145); eGFR For African Americans > 60 (> 60); eGFR For Non-African Americans > 60 (> 60)
[2017-06-22] MEDS: *HR* LORazepam 2 MG/ML VIAL IVP PRN (11:02)
[2017-06-22] MEDS: Acetaminophen 325 MG TABLET PO PRN (11:02)
[2017-06-22] MEDS: Micafungin 100 MG in 0.9 % Sodium Chloride Mini Bag 100 ML IVPB SCH (11:02)
--- NOTE | 2017-06-22 13:04 | Internal Med Progress Note ---
Date of Encounter: 06/22/17 Time of Encounter: 13:04 - Assessment and plan (1) Anemia Current Visit: Yes Status: Chronic Assessment and plan: monitor hb, transfusion for Hb <7 Qualifiers: Anemia type: unspecified type Qualified Code(s): D64.9 - Anemia, unspecified (2) Abdominal abscess Current Visit: Yes Status: Acute Assessment and plan: CT 06/16 revealed enlarging fluid collections suspicious for organizing abscess IR performed percutaneous drainage of abscess 06/17 Cultures grew candidia MRSA, Enterococcus faecium-VRE Continue current antibiotics (3) MRSA bacteremia Current Visit: Yes Status: Acute Assessment and plan: Blood cultures positive for MRSA bacteremia, with suspected source is PICC line vs central venous line TTE shows ejection fraction of 65-70% with mild tricuspid regurgitation, no vegetations noted No MRSA in blood cultures since 06/10 (4) Perforated diverticulum Current Visit: Yes Status: Acute Assessment and plan: Sepsis secondary to VRE, MRSA and yeast bacteremia possibly due to perforated diverticulum Still having fevers, blood cultures from 2/ noted Awaiting blood cultures from 06/21 D/C TPN POD #18 s/p sigmoid colectomy with stapled colocolonic anastomosis Infectious disease is following (5) UTI (urinary tract infection) Current Visit: Yes Status: Acute Assessment and plan: fungal, continue current meds Qualifiers: Urinary tract infection type: acute cystitis Hematuria presence: without hematuria Qualified Code(s): N30.00 - Acute cystitis without hematuria (6) VRE bacteremia Current Visit: Yes Status: Acute Assessment and plan: as in sepsis (7) HTN (hypertension) Current Visit: Yes Status: Chronic Assessment and plan: BP well controlled at this visit recently Hold Losartan for now as her pressures have been stable Continue hydralazine IV PRN hypertension Qualifiers: Hypertension type: essential hypertension Qualified Code(s): I10 - Essential (primary) hypertension (8) Hypothyroidism Current Visit: Yes Status: Chronic Assessment and plan: Continue po synthroid, patient is tolerating po now Qualifiers: Hypothyroidism type: acquired Qualified Code(s): E03.9 - Hypothyroidism, unspecified (9) Morbid obesity with BMI of 45.0-49.9, adult Current Visit: Yes Status: Chronic Assessment and plan: lifestyle modification (10) Sepsis Current Visit: Yes Status: Resolved Assessment and plan: as in diverticulitis Qualifiers: Sepsis type: methicillin resistant Staphylococcus aureus Qualified Code(s) : A41.02 - Sepsis due to Methicillin resistant Staphylococcus aureus (11) Acute respiratory failure with hypoxia Current Visit: Yes Status: Resolved Assessment and plan: resolved, comfortable on room air - Subjective Interval history: Seen and examined with partner at bedside Hospital day 24 Multiple complications Initial admission was for acute perforated diverticulitis, complicated by MRSA bacteremia, VRE bacteremia and fungemia Started on cipro/flagyl 05/29, admitting blood cultures 05/30 were negative X 2 bottles Patient underwent exploratory celiotomy with sigmoid colectomy on 06/04/17. She had a PICC line and subclavian CVC placed and confirmed by chest x-ray on . patient became febrile 06/09, with worsening leukocytosis and antibiotics were broadened to vancomycin and cefepime and Flagyl was continued. She developed fever of 102.1 on 06/11/17 and primary team started patient on Micafungin 100mg daily. CT abdomen/pelvis same day showed increasing fluid collections along abdominal incision, and multiloculated fluid loculations throughout the abdomen and pelvis increased in size and organizing, decreased pneumoperitoneum 06/14/18 micafungin d/c and patient started on diflucan CT notes increased size of abscess to drain 10.7 cm within the abdomen. Worsening right hydronephrosis. An worsening seroma below incision measuring 4.1 x 5.6 cm. s/p percutaneous drainage of abdominal abscess by IR 06/17/2017: Cultures have grown MRSA, VRE, pansensitive Jayna albicans Repeat blood cultures: 06/18/17 peripheral blood cultures grew yeast (2/2 cultures ) and VRE (1/2 cultures) 06/19/17 peripheral cultures growing yeast and VRE -drawn from CVC 06/19/17 central venous catheter tip culture preliminary negative 06/20/17 blood cultures prelim negative-source were peripheral, CVC and PICC line CT 06/19/2017 shows improvement of previous abdominal abscess. Continued small pockets of fluid collections throughout the abdomen and pelvis. Persistent pneumoperitoneum persistent moderate right hydronephrosis and hydroureter in the presence of nephroureteral stent and slight interval decrease in size of fluid collection within the subcutaneous fat of the midline anterior abdominal wall. Plan for today- Continue Current antibiotics-Mycafungin, Zyvox, Cefepime, Flagyl. Discontinue TPN Repeat blood cultures 06/23/17 a.m Out of bed to chair Continue physical therapy Monitor HB, transfusion for HB <7 - Constitutional Vitals: Temp Pulse Resp BP Pulse Ox 98.5 F 88 16 107/70 97 06/22/17 10:05 06/22/17 10:05 06/22/17 11:26 06/22/17 10:05 06/22/17 11:26 General appearance: Present: cooperative, A&O X 3, pleasant, no acute distress, obese, answers questions appropriately - Head Head exam: Present: atraumatic, normocephalic - Eye Eye exam: Present: PERRL, conjuntiva pink, sclera anicteric Pupils: Present: PERRL - Neck Neck exam general surgery: Present: supple, trachea midline. Absent: lymphadenopathy - Respiratory Respiratory exam: Present: CTAB. Absent: accessory muscle use, rales, rhonchi, wheezes - Cardiovascular Cardiovascular exam: Present: RRR, +S1, +S2. Absent: diastolic murmur, gallop, rubs, systolic murmur - GI/Abdominal Additional comments: enedina intact, mild LLQ tenderness, epigastric drainage intact, with minimal serous fluid collection - Extremities Exam Extremities exam: Present: warm, radial pulses palpable and symmetrical. Absent : calf tenderness, cyanotic, pedal edema - Neurological Exam Neurological exam: Present: alert, CN II-XII intact, oriented X3, no focal deficits. Absent: pronater drift, facial droop, speech deficit - Skin Skin exam: Present: dry, intact Internal Medicine: Result - Labs CBC & Chem 7: 06/22/17 04:50 06/22/17 04:50 Labs: Short CBC 06/22/17 Range/Units 04:50 WBC 6.6 (4.3-11.1) K/mcL Hgb 7.7 L (11.5-15.4) g/dL Hct 24.1 L (35.3-44.9) % Plt Count 243 (140-400) K/mcL Neutrophils # 3.6 (1.6-8.9) K/mcL BMP 06/22/17 04:50 Sodium 133 L Potassium 4.0 Chloride 101 Carbon Dioxide 30 H BUN 25 H Creatinine 0.79 Glucose 82 Calcium 8.0 L - ABG Interpretation ABG results: ABG ABG pH 7.43 pH Units (7.32-7.45) 06/08/17 04:24 ABG pCO2 35 mmHg (35-45) 06/08/17 04:24 ABG pO2 72 mmHg (85-104) L 06/08/17 04:24 ABG O2 Saturation 95 % (95-98) 06/08/17 04:24 PT/INR, D-dimer PT 16.4 Seconds (9.4-12.1) H 06/17/17 06:18 - VTE Documentation of Mechanical Device: Intermittent pneumatic compression device Consult Discharge Plan - Plan Referrals: Kole Barksdale MD [Primary Care Provider] - Michele Machuca MD [Non-Partnered Physician] -
[2017-06-22] MEDS: DAPTOMYCIN IVPB SCH (14:48)
[2017-06-22] MEDS: SODIUM CHLORIDE 0.9% IVPB SCH (14:48)
--- NOTE | 2017-06-22 15:36 | General Surgery Progress Note ---
Date of Encounter: 06/22/17 Time of Encounter: 15:13 Subjective Patient reports: fever Narrative: General Surgery- POD#18 patient seated at bedsid; in good spirits with no new complaints. Indicates she had been febrile thru the night Currently the patient is afebrile, 98.5; maximum temperature was 102.0; the patient was tachycardic to 105 during her febrile state but currently she is demonstrating a regular rhythm ranging 88-100. Lungs: Clear; no abdominal pain with deep inspiration Abdomen: Soft, nontender; active bowel sounds; no drainage from the incision The percutaneously placed drain has demonstrated no increased drainage with increased oral intake. No recorded output in the last 24 hours. Patient continues to move her bowels Extremities: 2+ dependent edema Laboratories: White count 6.6, hemoglobin 7.7 with hematocrit 24.1. Platelet count 243,000. Differential within normal limits The decreased hemoglobin and hematocrit reflective of the patient's fluid status due to the resuscitation several days ago and continued TPN Electrolytes, BUN, creatinine - stable; the elevated bicarbonate is slowly resolving Urine output: 3175 mL so far today; patient mobilizing her fluids; I anticipate her fluid balance will improve with this diuresis. Impression/Plan: Postoperative day #18 - acceptable status Transient fever last evening - blood cultures demonstrating VRE bacteremia and fungemia. Continue the current, appropriate ATB and anti fungal tx Patient currently on Cefipime (instead of Meropenem), metronidazole, daptomoycin, and Micafungin Patient appears to be taking more enterally as TPN is tapered. TPN reduced to 50 mL/hour and stopped at 1700. With discontinuation TPN - will discontinue BID Levemir; Sliding scale coverage AC and HS IV meds stopped / converted to oral Anemia - appears stable Renal function remains stable Encourage activities OOB including Physical Therapy Patient c/o pain not fully controlled with Q6H Percocet; at home was on Percocet 10/325 Q4-6H. Will increase Percocet to Q4H PRN for the next several days. Patient is aware of my plans to wean the Percocet. Objective Vital Signs - Last 8 Hours Temp Pulse Resp BP Pulse Ox 06/22/17 11:26 16 97 06/22/17 10:05 98.5 F 88 18 107/70 97 06/22/17 08:02 16 98 Intake and Output 06/21/17 06/22/17 06/22/17 23:59 07:59 15:59 Intake Total 2230 / 2230 100 / 100 2098 / 2098 Output Total 1100 / 1100 1800 / 1800 1375 / 1375 Balance 1130 / 1130 -1700 / -1700 724 / 724 Intake: IV Fluids 2210 / 2210 100 / 100 1859 / 1859 Clinimix E 5%-15% SOLUTION 2, 2210 / 2210 000 ML Travasol 10% 200 ML @ 91 .6 mls/hr IVC .Q24H [facility] with M. v.i. Adult 10 ml Rx#:[id number] Cubicin 820 MG In 0.9 % Sodium 100 / 100 Chloride 100 ML @ 200 mls/hr IVPB Q24H [facility] Rx#:[id number] Flagyl Premix 500 MG/100 ML 500 100 / 100 100 / 100 mg In 100 ml @ 100 mls/hr IVPB Q8HR [facility] Rx#:[id number] Mycamine 100 MG In 0.9 % Sodium 100 / 100 Chloride (Mini-Bag +) 100 ML @ 100 mls/hr IVPB Q24H [facility] Rx#: [id number] Oral 20 / 20 0 / 0 240 / 240 Output: Urine 1100 / 1100 1800 / 1800 1375 / 1375 Wound Drainage 0 / 0 0 / 0 Left Lower Anterior Medial 0 / 0 0 / 0 Abdomen Other: Meal Dinner Breakfast Percent of Meal Consumed 0% 100% Stool Size Moderate Small Stool Consistency loose soft liquid Stool Color Brown Brown # Bowel Movements 1 0 Weight 130.2 kg Blood Glucose* 137 110 160 Patient Weight 06/22/17 23:59 Weight 130.2 kg - Labs 06/22/17 04:50 06/22/17 04:50 Diabetes panel 06/22/17 Range/Units 04:50 Sodium 133 L (136-145) mEq/L Potassium 4.0 (3.5-5.1) mEq/L Chloride 101 (98-107) mEq/L Carbon Dioxide 30 H (23-29) mEq/L BUN 25 H (8-23) mg/dL Creatinine 0.79 (0.60-1.20) mg/dL Glucose 82 (70-105) mg/dL Calcium 8.0 L (8.6-10.3) mg/dL Calcium panel 06/22/17 Range/Units 04:50 Calcium 8.0 L (8.6-10.3) mg/dL Phosphorus 3.1 (2.7-4.5) mg/dL Pituitary panel 06/22/17 Range/Units 04:50 Sodium 133 L (136-145) mEq/L Potassium 4.0 (3.5-5.1) mEq/L Chloride 101 (98-107) mEq/L Carbon Dioxide 30 H (23-29) mEq/L BUN 25 H (8-23) mg/dL Creatinine 0.79 (0.60-1.20) mg/dL Glucose 82 (70-105) mg/dL Calcium 8.0 L (8.6-10.3) mg/dL Adrenal panel 06/22/17 Range/Units 04:50 Sodium 133 L (136-145) mEq/L Potassium 4.0 (3.5-5.1) mEq/L Chloride 101 (98-107) mEq/L Carbon Dioxide 30 H (23-29) mEq/L BUN 25 H (8-23) mg/dL Creatinine 0.79 (0.60-1.20) mg/dL Glucose 82 (70-105) mg/dL Calcium 8.0 L (8.6-10.3) mg/dL - VTE Documentation of Mechanical Device: Intermittent pneumatic compression device Consult Discharge Plan - Plan Referrals: Kole Barksdale MD [Primary Care Provider] - Michele Machuca MD [Non-Partnered Physician] -
[2017-06-22] MEDS: Cefepime HCl 2,000 MG in Water for inj. (sterile) 20 ML 20 ML IVP SCH (16:40)
[2017-06-22] MEDS: *HR* OxyCODONE/APAP 10/325 TABLET PO PRN ×2 (16:41→20:38)
[2017-06-22] MEDS: *HR* LORazepam 0.5 MG TABLET PO PRN (23:44)
[2017-06-23] MEDS: *HR* OxyCODONE/APAP 10/325 TABLET PO PRN ×5 (00:38→22:48)
[2017-06-23] MEDS: Ondansetron 4 MG/2 ML VIAL IVP PRN ×3 (00:39→16:37)
[2017-06-23] MEDS: Albuterol 2.5 MG/3 ML NEBULIZER IH SCH ×4 (00:50→11:58)
[2017-06-23] MEDS: Cefepime HCl 2,000 MG in Water for inj. (sterile) 20 ML 20 ML IVP SCH ×3 (03:37→16:32)
[2017-06-23 04:48] LABS: Basophils % 0.1 %; Eosinophils # 0.2 K/mcL (0.0-0.6); Eosinophils % 2.9 %; Hematocrit 24.9 % (35.3-44.9); Immature Granulocytes % 0.6 % (0-4); Immature Platelets 1.8 % (1.1-6.1); Lymphocytes # 1.9 K/mcL (0.6-4.6); Lymphocytes % 27.4 %; Mean Corpuscular HGB Conc 32.1 g/dL (31.6-35.5); Mean Corpuscular Hemoglobin 29.1 pg (28.0-33.3); Mean Corpuscular Volume 90.5 fL (83.0-100.0); Mean Platelet Volume 9.3 fL (9.4-12.4); Monocytes # 0.8 K/mcL (0.0-1.3); Monocytes % 11.2 %; Neutrophils # 3.9 K/mcL (1.6-8.9); Platelet Count 239 K/mcL (140-400); Red Blood Count 2.75 M/mcL (3.82-4.97); Red Cell Distribution Width 14.7 % (11.5-14.5); Segmented Neutrophils % 57.8 %
[2017-06-23 06:01] LABS: Alanine Aminotransferase 19 Units/L (7-52); Albumin 2.3 g/dL (3.5-5.7); Albumin/Globulin Ratio 0.5 (1.1-2.2); Alkaline Phosphatase 67 Units/L (34-104); Aspartate Amino Transferase 49 Units/L (13-39); BUN/Creatinine Ratio 25 (6-26); Bilirubin,Total 0.4 mg/dL (0.3-1.0); Blood Urea Nitrogen 22 mg/dL (8-23); Calcium 8.2 mg/dL (8.6-10.3); Carbon Dioxide 31 mEq/L (23-29); Chloride 101 mEq/L (98-107); Globulin 4.4 g/dL (2.4-3.5); Glucose 86 mg/dL (70-105); Osmolality,Calculated 285 (280-300); Platelet Estimate Normal (Normal); Potassium 4.3 mEq/L (3.5-5.1); Reactive Lymphocytes Present (Not Present); Sodium 136 mEq/L (136-145); Total Protein 6.7 g/dL (6.4-8.9); eGFR For African Americans > 60 (> 60); eGFR For Non-African Americans > 60 (> 60)
[2017-06-23] MEDS: *HR* Heparin 5,000 UNIT/ML VIAL SQ SCH ×2 (06:08→18:10)
--- NOTE | 2017-06-23 08:41 | Infectious Disease Progress No ---
Date of Encounter: 06/23/17 Time of Encounter: 08:41 - Assessment and Plan (1) Sepsis Current Visit: Yes Status: Resolved Presented with 3 SIRS criteria. Not tachycardic, afebrile, leukocytosis resolved. Secondary to complicated diverticulitis, and MRSA bacteremia, hank glabrata bacteremia, VRE bacteremia, UTI 2nd to hank albicans and Hank glabrata Qualifiers: Sepsis type: methicillin resistant Staphylococcus aureus Qualified Code(s) : A41.02 - Sepsis due to Methicillin resistant Staphylococcus aureus (2) Perforated diverticulum Current Visit: Yes Status: Acute Patient presented with acute onset of sharp abdominal pain. Has history of sigmoid diverticulitis. CT abdomen on 05/29 showed pneumoperitoneum with diverticulitis of sigmoid colon. Patient underwent exploratory celiotomy with sigmoid colectomy on 06/04/17. She had a PICC line and subclavian CVC placed and confirmed by chest x-ray on . Patient was also started on Cipro and Flagyl on 05/29. patient became febrie 06/09, with worsening leukocytosis and antibiotics were broadened to vancomycin and cefepime and Flagyl as continued. blood Cultures on are negative. fever of 102.1 on 06/11/17 and primary team started patient on Micafungin 100mg daily. CT abdomen/pelvis 06/11 increasing fluid collections along abdominal incision, and multiloculated fluid loculations throughout the abdomen and pelvis increased in size and organizing, decreased pneumoperitoneum 06/14/18 micafungin d/c and patient started on diflucan CT 18 notes increased size of abscess to drain 10.7 cm within the abdomen. Worsening right hydronephrosis. An worsening seroma below incision measuring 4.1 x 5.6 cm. Status post percutaneous drainage of abdominal abscess by IR 06/17/2017: Cultures have grown MRSA, VRE, pansensitive Hank albicans Repeat blood cultures: 06/18/17 peripheral blood cultures grew hank glabrata (2 /2 cultures) and VRE (1/2 cultures) 06/19/17 peripheral cultures growing hank glabrata 06/19/17 central venous catheter tip culture growing yeast 06/20/17 peripheral blood culture growing yeast 06/20/17 PICC blood culture negative 06/21/17 peripheral blood culture and PICC blood culture preliminary negative CT 06/19/2017 shows improvement of previous abdominal abscess. Continued small pockets of fluid collections throughout the abdomen and pelvis. Persistent pneumoperitoneum persistent moderate right hydronephrosis and hydroureter in the presence of nephroureteral stent and slight interval decrease in size of fluid collection within the subcutaneous fat of the midline anterior abdominal wall. Afebrile, continued abdominal pain. Plan: continue cefepime 2000mg Q8h and flagyl 500mg Q8h again. continue micafungin 100MG daily. Awaiting sensitivities of Hank glabrata. Antibiotic duration depends on clinical picture. (3) VRE bacteremia Current Visit: Yes Status: Acute 06/19/17 CVC blood culture + for VRE Patient was switched to daptomycin over the weekend. CK is 23 repeat blood cultures collected 06/21/2017 are preliminary negative. continue daptomycin. antibiotic duration depends of clinical picture and results of repeat blood culture. (4) MRSA bacteremia Current Visit: Yes Status: Acute Complicated MRSA bacteremia patient had left knee prosthetic joint Blood cultures from 06/08 from subclavian CVC and PICC line are positive for MRSA. Patient started on vancomycin and cefepime on 06/08 Since starting vancomycin patient's white blood cell count has improved from 15.1-10.9. Last trough of vancomycin was 18.3. Patient had repeat blood cultures drawn CvC, PICC and peripheral 06/10/17 all negative x6. PICC line culture of tip negative TTE: LVEF 65-70% mild tricuspid regurgiations, no vavular vegetations are noted vanc trough 17 kidney function stable Repeat peripheral blood cultures 06/18/17 and 06/19/17 are negative for MRSA. Subclavian CVC has been removed. PICC has been placed in the right upper extremity: Repeat blood cultures ordered and preliminary results are negative. Plan: continue daptomycin. Antibiotic duration will be determined by results of EMILIE, which patient will obtain once deemed by primary team to be stable for procedure. (5) Hypoxia Current Visit: Yes Status: Acute stable patient requiring O2 supplementation since being admitted O2 requirement 3L on lung exam clear anteriorly CXR 06/10/17 negative for pleural effusion, consolidation. Free air under the right hemidiaphragm noted again unchanged. sob unchanged from yesterday plan as per primary (6) UTI (urinary tract infection) Current Visit: Yes Status: Acute 06/13 urine culture Hank albicans and glabrata harry d/c Awaiting glabrata sensitivites continue:patient on micafungin 100mg daily Qualifiers: Urinary tract infection type: acute cystitis Hematuria presence: without hematuria Qualified Code(s): N30.00 - Acute cystitis without hematuria (7) Hydronephrosis Current Visit: Yes Status: Acute Discovered on CT abdomen 06/02 which showed right hydroureter with right ureteritis and bilateral pyelitis Underwent on 06/04/17 right ureteral stent placement and left ureteral catheter placement by urology. Patient has had 2 urine cultures which have been negative for growth. Urinalysis does not indicate any signs of infection. Patient has a Harry catheter out pitting light red urine. Likely secondary to urologic procedure. Patient is on broad-spectrum antibiotics, vancomycin, cefepime which will cover urinary tract infection. Repeat CT abdomen and pelvis on 06/07 showed improvement of right hydronephrosis and stable stent placement. Repeat CT at 06/16/2017 shows worsening right hydronephrosis. Urology reports no additional intervention needed at this point. Qualifiers: Hydronephrosis type: other Qualified Code(s): N13.39 - Other hydronephrosis (8) Hypothyroidism Current Visit: Yes Status: Chronic As per primary. Qualifiers: Hypothyroidism type: acquired Qualified Code(s): E03.9 - Hypothyroidism, unspecified (9) HTN (hypertension) Current Visit: Yes Status: Chronic controlled. Qualifiers: Hypertension type: essential hypertension Qualified Code(s): I10 - Essential (primary) hypertension (10) DVT prophylaxis Current Visit: Yes Status: Acute heparin SQ - Subjective Interval history: Reports continued abdominal pain. Denies nausea, vomiting, diarrhea. Reports her cervix shortness of breath is considerably improved. Her oxygen requirement has decreased from 3 L to 2 L. Her pain is being managed with oral Percocet by surgery. She has been afebrile overnight. She has no other complaints. Infect Dis PN-Objective Data - Labs CBC & Chem 7: 06/23/17 04:18 06/23/17 04:18 Labs: Laboratory Results - last 24 hr 06/22/17 06/22/17 06/22/17 04:50 04:50 11:18 WBC 6.6 RBC 2.65 L Hgb 7.7 L Hct 24.1 L MCV 90.9 MCH 29.1 MCHC 32.0 RDW 14.6 H Plt Count 243 MPV 9.5 Immature Gran % Seg Neutrophils % 50.0 Band Neutrophils % 4.0 Lymphocytes % 30.0 Monocytes % 16.0 Eosinophils % Basophils % Neutrophils # 3.6 Lymphocytes # 2.0 Monocytes # 1.1 Eosinophils # Basophils # Reactive Lymphocytes Present A Platelet Estimate Normal Immature Plt Fraction 1.9 Sodium 133 L Potassium 4.0 Chloride 101 Carbon Dioxide 30 H BUN 25 H Creatinine 0.79 Est GFR ( Amer) > 60 Est GFR (Non-Af Amer) > 60 BUN/Creatinine Ratio 32 H Glucose 82 POC Glucose 160 H Calculated Osmolality 279 L Calcium 8.0 L Phosphorus 3.1 Magnesium 2.1 Total Bilirubin AST ALT Alkaline Phosphatase Creatine Kinase 23 L Serum Total Protein Albumin Globulin Albumin/Globulin Ratio 06/22/17 06/22/17 06/22/17 16:33 19:31 23:01 WBC RBC Hgb Hct MCV MCH MCHC RDW Plt Count MPV Immature Gran % Seg Neutrophils % Band Neutrophils % Lymphocytes % Monocytes % Eosinophils % Basophils % Neutrophils # Lymphocytes # Monocytes # Eosinophils # Basophils # Reactive Lymphocytes Platelet Estimate Immature Plt Fraction Sodium Potassium Chloride Carbon Dioxide BUN Creatinine Est GFR ( Amer) Est GFR (Non-Af Amer) BUN/Creatinine Ratio Glucose POC Glucose 142 H 89 105 H Calculated Osmolality Calcium Phosphorus Magnesium Total Bilirubin AST ALT Alkaline Phosphatase Creatine Kinase Serum Total Protein Albumin Globulin Albumin/Globulin Ratio 06/23/17 06/23/17 06/23/17 04:18 04:18 07:38 WBC 6.8 RBC 2.75 L Hgb 8.0 L Hct 24.9 L MCV 90.5 MCH 29.1 MCHC 32.1 RDW 14.7 H Plt Count 239 MPV 9.3 L Immature Gran % 0.6 Seg Neutrophils % 57.8 Band Neutrophils % Lymphocytes % 27.4 Monocytes % 11.2 Eosinophils % 2.9 Basophils % 0.1 Neutrophils # 3.9 Lymphocytes # 1.9 Monocytes # 0.8 Eosinophils # 0.2 Basophils # 0.0 Reactive Lymphocytes Present A Platelet Estimate Normal Immature Plt Fraction 1.8 Sodium 136 Potassium 4.3 Chloride 101 Carbon Dioxide 31 H BUN 22 Creatinine 0.89 Est GFR ( Amer) > 60 Est GFR (Non-Af Amer) > 60 BUN/Creatinine Ratio 25 Glucose 86 POC Glucose 97 H Calculated Osmolality 285 Calcium 8.2 L Phosphorus Magnesium Total Bilirubin 0.4 AST 49 H ALT 19 Alkaline Phosphatase 67 Creatine Kinase Serum Total Protein 6.7 Albumin 2.3 L Globulin 4.4 H Albumin/Globulin Ratio 0.5 L Cultures: Cultures 06/19/17 09:12 Blood Culture - Preliminary Central Venous Catheter Vancomycin Resistant Enterococcus faecium Yeast Species 06/18/17 10:44 Blood Culture - Preliminary Peripheral Venipuncture Vancomycin Resistant Enterococcus faecium Yeast Species 06/18/17 08:41 Blood Culture - Preliminary Peripheral Venipuncture Hank glabrata 06/19/17 00:20 Blood Culture - Preliminary Peripheral Venipuncture Hank glabrata 06/19/17 00:26 Blood Culture - Preliminary Peripheral Venipuncture Hank glabrata 06/21/17 05:49 Blood Culture - Preliminary Peripheral Venipuncture No growth. 06/20/17 10:06 Blood Culture - Preliminary Peripheral Venipuncture Yeast Species 06/19/17 11:35 Catheter Tip Culture - Preliminary Intravenous or Arterial Cath Yeast Species 06/13/17 04:38 Urine Culture - Preliminary Urine,Harry Port Hank albicans Hank glabrata 06/21/17 04:40 Blood Culture - Preliminary Central Venous Catheter No growth. 06/20/17 10:15 Blood Culture - Preliminary Peripheral Central Cath, Picc No growth. 06/17/17 11:20 Body Fluid Culture - Final Other-Specify in Comments Hank albicans Methicillin Resistant S.aureus Enterococcus faecium 06/12/17 20:08 Blood Culture - Final Peripheral Venipuncture No growth. 06/10/17 05:45 Blood Culture - Final Peripheral Central Cath, Picc No growth. 06/10/17 05:41 Blood Culture - Final Peripheral Venipuncture No growth. 06/10/17 11:35 Blood Culture - Final Peripheral Central Cath, Picc No growth. 06/10/17 05:45 Blood Culture - Final Central Venous Catheter No growth. 06/10/17 05:46 Blood Culture - Final Peripheral Venipuncture No growth. 06/10/17 11:35 Blood Culture - Final Central Venous Catheter No growth. 06/10/17 16:40 Catheter Tip Culture - Final Intravenous or Arterial Cath No growth. 06/08/17 06:33 Blood Culture - Final Peripheral Central Cath, Picc Methicillin Resistant S.aureus 06/08/17 06:33 Blood Culture - Final Central Venous Catheter Methicillin Resistant S.aureus 06/08/17 04:20 Urine Culture - Final Urine,Clean Catch No significant growth. 06/03/17 09:25 Urine Culture - Final Urine,Harry Port No growth. 05/30/17 09:56 Blood Culture - Final Peripheral Venipuncture No growth. 05/30/17 10:10 Blood Culture - Final Peripheral Venipuncture No growth. Serology 06/19/17 06/19/17 06/19/17 Range/Units 16:10 09:12 09:12 Ur Specimen Adequacy Urine Color Yellow (Yellow) Urine Clarity Clear (Clear) Urine pH 6.5 (5.0-8.0) pH Units Ur Specific [place] 1.021 (1.010-1.025) Urine Protein 30 H (Neg-Trace) mg/dL Urine Glucose (UA) Normal (Normal) mg/dL Urine Ketones Negative (Negative) mg/dL Urine Blood Large H (Negative) Urine Nitrite Negative (Negative) Urine Bilirubin Negative (Negative) Urine Urobilinogen Normal (Normal) mg/dL Ur Leukocyte Esterase Negative (Negative) Urine Microscopic RBC 0-3 (0-3) per hpf Urine Microscopic WBC 0-3 (0-3) per hpf Ur Squamous Epith Cells Many H (None-Few) per lpf Urine Bacteria None Seen (None-Few) per hpf Hyaline Casts None Seen (None-Few) per lpf Ur Culture Indicated? NO (NO) A. baumannii (PCR) Not Detected Not Detected (Not Detect) Chlamy pneumoniae PCR (Not Detect) Adenovirus (PCR) (Not Detect) B. pertussis DNA (PCR) (Not Detect) B.parapertussis DNA PCR (Not Detect) Hnak albicans (PCR) Not Detected Not Detected (Not Detect) C. glabrata (PCR) DETECTED A DETECTED A (Not Detect) C. krusei (PCR) Not Detected Not Detected (Not Detect) C. parapsilosis (PCR) Not Detected DETECTED A (Not Detect) C. tropicalis (PCR) Not Detected Not Detected (Not Detect) Coronavirus OC43 (PCR) (Not Detect) Coronavirus HKU1 (PCR) (Not Detect) Coronavirus 229E (PCR) (Not Detect) Coronavirus NL63 (PCR) (Not Detect) Enterobacteriac sp PCR Not Detected Not Detected (Not Detect) E. cloacae complex PCR Not Detected Not Detected (Not Detect) Enterococcus sp PCR Not Detected DETECTED A (Not Detect) E. coli (PCR) Not Detected Not Detected (Not Detect) H. influenzae (PCR) Not Detected Not Detected (Not Detect) Human Metapneumovir PCR (Not Detect) Influenza A (H1) PCR (Not Detect) Influ A (H1N1/09) PCR (Not Detect) Influenza A (H3) PCR (Not Detect) Influenza A Untype (PCR) (Not Detect) Influenza Type B (PCR) (Not Detect) Klebsiella oxytoca PCR Not Detected Not Detected (Not Detect) Klebsiella pneumoniae Not Detected Not Detected (Not Detect) List. monocytogenes PCR Not Detected Not Detected (Not Detect) M.pneumoniae DNA (PCR) (Not Detect) N. meningitidis (PCR) Not Detected Not Detected (Not Detect) Parainfluenza 1 (PCR) (Not Detect) Parainfluenza 2 (PCR) (Not Detect) Parainfluenza 3 (PCR) (Not Detect) Parainfluenza 4 (PCR) (Not Detect) Proteus species (PCR) Not Detected Not Detected (Not Detect) RSV (PCR) (Not Detect) Entero/Rhino (PCR) (Not Detect) Serratia marcescens PCR Not Detected Not Detected (Not Detect) Staphylococcus sp PCR Not Detected Not Detected (Not Detect) Staph aureus (PCR) Not Detected Not Detected (Not Detect) mecA-Methicil Res Gene N/A N/A (Not Detect) Streptococcus sp PCR Not Detected Not Detected (Not Detect) Group A Strep DNA Not Detected Not Detected (Not Detect) Group B Strep (PCR) Not Detected Not Detected (Not Detect) Strep pneumoniae (PCR) Not Detected Not Detected (Not Detect) P. aeruginosa (PCR) Not Detected Not Detected (Not Detect) Bryant/B-Vanco Res Genes N/A DETECTED A (Not Detect) KPC (blaKPC) Detect PCR N/A N/A (Not Detect) 06/19/17 06/19/17 06/18/17 Range/Units 09:12 00:20 10:44 Ur Specimen Adequacy Urine Color (Yellow) Urine Clarity (Clear) Urine pH (5.0-8.0) pH Units Ur Specific [place] (1.010-1.025) Urine Protein (Neg-Trace) mg/dL Urine Glucose (UA) (Normal) mg/dL Urine Ketones (Negative) mg/dL Urine Blood (Negative) Urine Nitrite (Negative) Urine Bilirubin (Negative) Urine Urobilinogen (Normal) mg/dL Ur Leukocyte Esterase (Negative) Urine Microscopic RBC (0-3) per hpf Urine Microscopic WBC (0-3) per hpf Ur Squamous Epith Cells (None-Few) per lpf Urine Bacteria (None-Few) per hpf Hyaline Casts (None-Few) per lpf Ur Culture Indicated? (NO) A. baumannii (PCR) Not Detected Not Detected (Not Detect) Chlamy pneumoniae PCR Not Detected (Not Detect) Adenovirus (PCR) Not Detected (Not Detect) B. pertussis DNA (PCR) Not Detected (Not Detect) B.parapertussis DNA PCR Not Detected (Not Detect) Hank albicans (PCR) Not Detected Not Detected (Not Detect) C. glabrata (PCR) DETECTED A Not Detected (Not Detect) C. krusei (PCR) Not Detected Not Detected (Not Detect) C. parapsilosis (PCR) Not Detected Not Detected (Not Detect) C. tropicalis (PCR) Not Detected Not Detected (Not Detect) Coronavirus OC43 (PCR) Not Detected (Not Detect) Coronavirus HKU1 (PCR) Not Detected (Not Detect) Coronavirus 229E (PCR) Not Detected (Not Detect) Coronavirus NL63 (PCR) Not Detected (Not Detect) Enterobacteriac sp PCR Not Detected Not Detected (Not Detect) E. cloacae complex PCR Not Detected Not Detected (Not Detect) Enterococcus sp PCR Not Detected DETECTED A (Not Detect) E. coli (PCR) Not Detected Not Detected (Not Detect) H. influenzae (PCR) Not Detected Not Detected (Not Detect) Human Metapneumovir PCR Not Detected (Not Detect) Influenza A (H1) PCR Not Detected (Not Detect) Influ A (H1N1/09) PCR Not Detected (Not Detect) Influenza A (H3) PCR Not Detected (Not Detect) Influenza A Untype (PCR) Not Detected (Not Detect) Influenza Type B (PCR) Not Detected (Not Detect) Klebsiella oxytoca PCR Not Detected Not Detected (Not Detect) Klebsiella pneumoniae Not Detected Not Detected (Not Detect) List. monocytogenes PCR Not Detected Not Detected (Not Detect) M.pneumoniae DNA (PCR) Not Detected (Not Detect) N. meningitidis (PCR) Not Detected Not Detected (Not Detect) Parainfluenza 1 (PCR) Not Detected (Not Detect) Parainfluenza 2 (PCR) Not Detected (Not Detect) Parainfluenza 3 (PCR) Not Detected (Not Detect) Parainfluenza 4 (PCR) Not Detected (Not Detect) Proteus species (PCR) Not Detected Not Detected (Not Detect) RSV (PCR) Not Detected (Not Detect) Entero/Rhino (PCR) Not Detected (Not Detect) Serratia marcescens PCR Not Detected Not Detected (Not Detect) Staphylococcus sp PCR Not Detected Not Detected (Not Detect) Staph aureus (PCR) Not Detected Not Detected (Not Detect) mecA-Methicil Res Gene Not Detected N/A (Not Detect) Streptococcus sp PCR Not Detected Not Detected (Not Detect) Group A Strep DNA Not Detected Not Detected (Not Detect) Group B Strep (PCR) Not Detected Not Detected (Not Detect) Strep pneumoniae (PCR) Not Detected Not Detected (Not Detect) P. aeruginosa (PCR) Not Detected Not Detected (Not Detect) Bryant/B-Vanco Res Genes Not Detected DETECTED A (Not Detect) KPC (blaKPC) Detect PCR Not Detected N/A (Not Detect) 06/18/17 06/08/17 06/08/17 Range/Units 08:41 06:33 04:20 Ur Specimen Adequacy Urine Color Dark Yellow (Yellow) Urine Clarity Clear (Clear) Urine pH 6.0 (5.0-8.0) pH Units Ur Specific [place] > 1.030 H (1.010-1.025) Urine Protein 100 H (Neg-Trace) mg/dL Urine Glucose (UA) 100 H (Normal) mg/dL Urine Ketones Negative (Negative) mg/dL Urine Blood Large H (Negative) Urine Nitrite Negative (Negative) Urine Bilirubin Negative (Negative) Urine Urobilinogen Normal (Normal) mg/dL Ur Leukocyte Esterase Small H (Negative) Urine Microscopic RBC (0-3) per hpf Urine Microscopic WBC (0-3) per hpf Ur Squamous Epith Cells (None-Few) per lpf Urine Bacteria (None-Few) per hpf Hyaline Casts (None-Few) per lpf Ur Culture Indicated? YES A (NO) A. baumannii (PCR) Not Detected Not Detected (Not Detect) Chlamy pneumoniae PCR (Not Detect) Adenovirus (PCR) (Not Detect) B. pertussis DNA (PCR) (Not Detect) B.parapertussis DNA PCR (Not Detect) Hank albicans (PCR) Not Detected Not Detected (Not Detect) C. glabrata (PCR) DETECTED A Not Detected (Not Detect) C. krusei (PCR) Not Detected Not Detected (Not Detect) C. parapsilosis (PCR) Not Detected Not Detected (Not Detect) C. tropicalis (PCR) Not Detected Not Detected (Not Detect) Coronavirus OC43 (PCR) (Not Detect) Coronavirus HKU1 (PCR) (Not Detect) Coronavirus 229E (PCR) (Not Detect) Coronavirus NL63 (PCR) (Not Detect) Enterobacteriac sp PCR Not Detected Not Detected (Not Detect) E. cloacae complex PCR Not Detected Not Detected (Not Detect) Enterococcus sp PCR Not Detected Not Detected (Not Detect) E. coli (PCR) Not Detected Not Detected (Not Detect) H. influenzae (PCR) Not Detected Not Detected (Not Detect) Human Metapneumovir PCR (Not Detect) Influenza A (H1) PCR (Not Detect) Influ A (H1N1/09) PCR (Not Detect) Influenza A (H3) PCR (Not Detect) Influenza A Untype (PCR) (Not Detect) Influenza Type B (PCR) (Not Detect) Klebsiella oxytoca PCR Not Detected Not Detected (Not Detect) Klebsiella pneumoniae Not Detected Not Detected (Not Detect) List. monocytogenes PCR Not Detected Not Detected (Not Detect) M.pneumoniae DNA (PCR) (Not Detect) N. meningitidis (PCR) Not Detected Not Detected (Not Detect) Parainfluenza 1 (PCR) (Not Detect) Parainfluenza 2 (PCR) (Not Detect) Parainfluenza 3 (PCR) (Not Detect) Parainfluenza 4 (PCR) (Not Detect) Proteus species (PCR) Not Detected Not Detected (Not Detect) RSV (PCR) (Not Detect) Entero/Rhino (PCR) (Not Detect) Serratia marcescens PCR Not Detected Not Detected (Not Detect) Staphylococcus sp PCR Not Detected DETECTED A (Not Detect) Staph aureus (PCR) Not Detected DETECTED A (Not Detect) mecA-Methicil Res Gene N/A DETECTED A (Not Detect) Streptococcus sp PCR Not Detected Not Detected (Not Detect) Group A Strep DNA Not Detected Not Detected (Not Detect) Group B Strep (PCR) Not Detected Not Detected (Not Detect) Strep pneumoniae (PCR) Not Detected Not Detected (Not Detect) P. aeruginosa (PCR) Not Detected Not Detected (Not Detect) Bryant/B-Vanco Res Genes N/A Not Detected (Not Detect) KPC (blaKPC) Detect PCR N/A Not Detected (Not Detect) Exam - Constitutional Vitals: Temp Pulse Resp BP Pulse Ox 98.3 F 84 16 135/67 98 06/23/17 07:32 06/23/17 07:32 06/23/17 08:35 06/23/17 07:32 06/23/17 08:35 - Additional findings Additional findings: General: Pleasant without distress. HEENT: Absent thrush. Heart: Regular rate and rhythm with no murmur Lungs: Clear to auscultation bilaterally Abdomen: Soft, nontender, nondistended, positive bowel sounds. Surgical incision intact, enedina intact (mild erythema around distal enedina), and MARIUSZ drain outputting serosanguineous fluid 10cc in bag. Skin: warm and dry Extremities: Absent pedal edema, Neuro: Alert and oriented 3 Vascular: Pedal and radial pulses 2 out of 4 - VTE Documentation of Mechanical Device: Intermittent pneumatic compression device Consult Discharge Plan - Plan Referrals: Kole Barksdale MD [Primary Care Provider] - Michele Machuca MD [Non-Partnered Physician] - - Attending Attestation I examined this patient and my medical decision-making was reviewed with the Resident Physician. I agree with the documented findings, disposition and treatment plan as described except to the extent set forth below.
[2017-06-23] MEDS: MetroNIDAZOLE 500 MG/100 ML 500 MG/100 ML BAG IVPB SCH ×2 (08:45→16:34)
[2017-06-23] MEDS: Insulin LISPRO 300 UNITS/3 ML VIAL SQ SCH ×4 (08:46→22:49)
[2017-06-23] MEDS ORDERED: Furosemide 40 MG/4 ML VIAL IVP ONE (08:54)
[2017-06-23] MEDS: Micafungin 100 MG in 0.9 % Sodium Chloride Mini Bag 100 ML IVPB SCH (09:55)
--- NOTE | 2017-06-23 13:24 | Internal Med Progress Note ---
Date of Encounter: 06/23/17 Time of Encounter: 13:24 - Assessment and plan (1) Anemia Current Visit: Yes Status: Chronic Assessment and plan: monitor hb, transfusion for Hb <7 Qualifiers: Anemia type: unspecified type Qualified Code(s): D64.9 - Anemia, unspecified (2) Abdominal abscess Current Visit: Yes Status: Acute Assessment and plan: CT 06/16 revealed enlarging fluid collections suspicious for organizing abscess IR performed percutaneous drainage of abscess 06/17 Cultures grew candidia MRSA, Enterococcus faecium-VRE Continue current antibiotics (3) MRSA bacteremia Current Visit: Yes Status: Resolved Assessment and plan: Blood cultures positive for MRSA bacteremia, with suspected source is PICC line vs central venous line TTE shows ejection fraction of 65-70% with mild tricuspid regurgitation, no vegetations noted No MRSA in blood cultures since 06/10 (4) Perforated diverticulum Current Visit: Yes Status: Acute Assessment and plan: Sepsis secondary to VRE, MRSA and yeast bacteremia possibly due to perforated diverticulum Still having fevers, blood cultures from 06/19 noted Awaiting blood cultures from 06/21 D/C TPN POD #19 s/p sigmoid colectomy with stapled colocolonic anastomosis Infectious disease is following (5) UTI (urinary tract infection) Current Visit: Yes Status: Acute Assessment and plan: fungal, continue current meds Qualifiers: Urinary tract infection type: acute cystitis Hematuria presence: without hematuria Qualified Code(s): N30.00 - Acute cystitis without hematuria (6) VRE bacteremia Current Visit: Yes Status: Acute Assessment and plan: as in sepsis (7) HTN (hypertension) Current Visit: Yes Status: Chronic Assessment and plan: BP well controlled at this visit recently Hold Losartan for now as her pressures have been stable Continue hydralazine IV PRN hypertension Qualifiers: Hypertension type: essential hypertension Qualified Code(s): I10 - Essential (primary) hypertension (8) Hypothyroidism Current Visit: Yes Status: Chronic Assessment and plan: Continue po synthroid, patient is tolerating po now Qualifiers: Hypothyroidism type: acquired Qualified Code(s): E03.9 - Hypothyroidism, unspecified (9) Morbid obesity with BMI of 45.0-49.9, adult Current Visit: Yes Status: Chronic Assessment and plan: lifestyle modification (10) Sepsis Current Visit: Yes Status: Resolved Assessment and plan: as in diverticulitis Qualifiers: Sepsis type: methicillin resistant Staphylococcus aureus Qualified Code(s) : A41.02 - Sepsis due to Methicillin resistant Staphylococcus aureus (11) Acute respiratory failure with hypoxia Current Visit: Yes Status: Resolved Assessment and plan: resolved, comfortable on room air - Subjective Interval history: Seen and examined with partner at bedside Hospital day 24 Multiple complications Initial admission was for acute perforated diverticulitis, complicated by MRSA bacteremia, VRE bacteremia and fungemia Started on cipro/flagyl 05/29, admitting blood cultures 05/30 were negative X 2 bottles Patient underwent exploratory celiotomy with sigmoid colectomy on 06/04/17. She had a PICC line and subclavian CVC placed and confirmed by chest x-ray on . patient became febrile 06/09, with worsening leukocytosis and antibiotics were broadened to vancomycin and cefepime and Flagyl was continued. She developed fever of 102.1 on 06/11/17 and primary team started patient on Micafungin 100mg daily. CT abdomen/pelvis same day showed increasing fluid collections along abdominal incision, and multiloculated fluid loculations throughout the abdomen and pelvis increased in size and organizing, decreased pneumoperitoneum 06/14/18 micafungin d/c and patient started on diflucan CT notes increased size of abscess to drain 10.7 cm within the abdomen. Worsening right hydronephrosis. An worsening seroma below incision measuring 4.1 x 5.6 cm. s/p percutaneous drainage of abdominal abscess by IR 06/17/2017: Cultures have grown MRSA, VRE, pansensitive Jayna albicans Repeat blood cultures: 06/18/17 peripheral blood cultures grew yeast (2/2 cultures ) and VRE (1/2 cultures) 06/19/17 peripheral cultures growing yeast and VRE -drawn from CVC 06/19/17 central venous catheter tip culture preliminary negative 06/20/17 blood cultures prelim negative-source were peripheral, CVC and PICC line 06/21/17 blood culture prelim negative new blood cultures sent today Plan for today- Last fever done 06/21/17, afebrile since then Continue Current antibiotics-Mycafungin, Zyvox, Cefepime, Flagyl. Consider discontinuation of cefepime, patient has received >10 days, infectious disease is following continue current care Monitor HB, transfusion for HB <7 - Constitutional Vitals: Temp Pulse Resp BP Pulse Ox 98.2 F 85 18 145/85 95 06/23/17 12:09 06/23/17 12:09 06/23/17 12:09 06/23/17 12:09 06/23/17 12:09 General appearance: Present: cooperative, A&O X 3, pleasant, no acute distress, obese, answers questions appropriately - Head Head exam: Present: atraumatic, normocephalic - Eye Eye exam: Present: PERRL, conjuntiva pink, sclera anicteric Pupils: Present: PERRL - Neck Neck exam general surgery: Present: supple, trachea midline. Absent: lymphadenopathy - Respiratory Respiratory exam: Present: CTAB. Absent: accessory muscle use, rales, rhonchi, wheezes - Cardiovascular Cardiovascular exam: Present: RRR, +S1, +S2. Absent: diastolic murmur, gallop, rubs, systolic murmur - GI/Abdominal Additional comments: enedina intact, mild LLQ tenderness, epigastric drainage intact, with minimal serous fluid collection - Extremities Exam Extremities exam: Present: warm, radial pulses palpable and symmetrical. Absent : calf tenderness, cyanotic, pedal edema - Neurological Exam Neurological exam: Present: alert, CN II-XII intact, oriented X3, no focal deficits. Absent: pronater drift, facial droop, speech deficit - Skin Skin exam: Present: dry, intact Internal Medicine: Result - Labs CBC & Chem 7: 06/23/17 04:18 06/23/17 04:18 Labs: Short CBC 06/23/17 Range/Units 04:18 WBC 6.8 (4.3-11.1) K/mcL Hgb 8.0 L (11.5-15.4) g/dL Hct 24.9 L (35.3-44.9) % Plt Count 239 (140-400) K/mcL Neutrophils # 3.9 (1.6-8.9) K/mcL BMP 06/23/17 04:18 Sodium 136 Potassium 4.3 Chloride 101 Carbon Dioxide 31 H BUN 22 Creatinine 0.89 Glucose 86 Calcium 8.2 L Liver Function 06/23/17 Range/Units 04:18 Total Bilirubin 0.4 (0.3-1.0) mg/dL AST 49 H (13-39) Units/L ALT 19 (7-52) Units/L Alkaline Phosphatase 67 (34-104) Units/L Albumin 2.3 L (3.5-5.7) g/dL - ABG Interpretation ABG results: ABG ABG pH 7.43 pH Units (7.32-7.45) 06/08/17 04:24 ABG pCO2 35 mmHg (35-45) 06/08/17 04:24 ABG pO2 72 mmHg (85-104) L 06/08/17 04:24 ABG O2 Saturation 95 % (95-98) 06/08/17 04:24 PT/INR, D-dimer PT 16.4 Seconds (9.4-12.1) H 06/17/17 06:18 - VTE Documentation of Mechanical Device: Intermittent pneumatic compression device Consult Discharge Plan - Plan Referrals: Kole Barksdale MD [Primary Care Provider] - Michele Machuca MD [Non-Partnered Physician] -
[2017-06-23] MEDS ORDERED: *HR* OxyCODONE Immed Rel 5 MG TABLET PO ONE (13:45)
--- NOTE | 2017-06-23 14:02 | General Surgery Progress Note ---
Date of Encounter: 06/23/17 Time of Encounter: 13:48 Subjective Narrative: General Surgery - POD #19 Patient c/o pain as she is receiving inadequate pain meds. The patient describes her usual home regimen for chronic pain : percocet 10/325 2 tabs 5 times daily. During this patient's entire hospital stay - this information is "new" The patient has remained afebrile for the last 24 hours; heart rate 85, respirations 16-18, blood pressure 144/85 Lungs: Clear, no obvious abdominal pain on deep inspiration Abdomen: Soft, no obvious tenderness, active bowel sounds. Midline incision clean and dry without obvious drainage. Percutaneously placed drain: No recorded drainage for 48 hours. Urine output 3575 mL in the last 24 hours. Output exceeds input by 1414 mL. Laboratories: White count 6.8, hemoglobin 8.0, hematocrit 24.9. Platelet count 239,000. Differential remains within normal limits Electrolytes are stable and within normal limits except for bicarbonate of 31 ; BUN 22, creatinine 0.89. LFTs notable for an AST of 49; the other LFTs are normal. Total protein 6.7 , albumin 2.3 Impression: Postoperative day 19, status post exploratory celiotomy, sigmoid colectomy with stapled colocolonic anastomosis Postoperative active uremia initially due to MRSA followed by VRE; most recently fungemia No recurrent fevers in the last 24 hours; white count remaining within normal limits without significant differential abnormalities Patient complaining of pain - it is not clear whether this is acute postoperative pain versus chronic pain which predates the patient's current hospitalization Plan: Repeat CT abdomen/pelvis the a.m. with oral and IV contrast. Continue current medications: Cefepime, metronidazole, daptomycin, and micafungin furosemide administered this AM to facilitate continued diuresis. Patient on furosemide at home. Objective Vital Signs - Last 8 Hours Temp Pulse Resp BP Pulse Ox 06/23/17 12:09 98.2 F 85 18 145/85 95 06/23/17 12:05 16 97 06/23/17 08:35 16 98 06/23/17 08:33 16 98 06/23/17 07:32 98.3 F 84 18 135/67 97 Intake and Output 06/22/17 06/23/17 06/23/17 23:59 07:59 15:59 Intake Total 362 / 362 120 / 120 0 / 0 Output Total 900 / 900 400 / 400 Balance -538 / -538 -280 / -280 0 / 0 Intake: IV Fluids 362 / 362 120 / 120 Maxipime 2,000 MG In Water for inj. (sterile) 20 ML @ 300 mls/ hr IVP Q8H [facility] Rx#:[id number] Flagyl Premix 500 MG/100 ML 500 100 / 100 100 / 100 mg In 100 ml @ 100 mls/hr IVPB Q8HR [facility] Rx#:[id number] Oral 0 / 0 0 / 0 0 / 0 Output: Urine 400 / 400 200 / 200 Urine/Stool Mix 500 / 500 200 / 200 Wound Drainage 0 / 0 0 / 0 Left Lower Anterior Medial 0 / 0 0 / 0 Abdomen Other: Meal Dinner Percent of Meal Consumed 25% Stool Size Small Stool Consistency loose Stool Color Brown # Voids 1 # Bowel Movements 1 Weight 130.2 kg Blood Glucose* 105 97 113 Patient Weight 06/23/17 23:59 Weight 130.2 kg - Labs 06/23/17 04:18 06/23/17 04:18 Diabetes panel 06/23/17 Range/Units 04:18 Sodium 136 (136-145) mEq/L Potassium 4.3 (3.5-5.1) mEq/L Chloride 101 (98-107) mEq/L Carbon Dioxide 31 H (23-29) mEq/L BUN 22 (8-23) mg/dL Creatinine 0.89 (0.60-1.20) mg/dL Glucose 86 (70-105) mg/dL Calcium 8.2 L (8.6-10.3) mg/dL AST 49 H (13-39) Units/L ALT 19 (7-52) Units/L Alkaline Phosphatase 67 (34-104) Units/L Albumin 2.3 L (3.5-5.7) g/dL Calcium panel 06/23/17 Range/Units 04:18 Calcium 8.2 L (8.6-10.3) mg/dL Albumin 2.3 L (3.5-5.7) g/dL Pituitary panel 06/23/17 Range/Units 04:18 Sodium 136 (136-145) mEq/L Potassium 4.3 (3.5-5.1) mEq/L Chloride 101 (98-107) mEq/L Carbon Dioxide 31 H (23-29) mEq/L BUN 22 (8-23) mg/dL Creatinine 0.89 (0.60-1.20) mg/dL Glucose 86 (70-105) mg/dL Calcium 8.2 L (8.6-10.3) mg/dL Adrenal panel 06/23/17 Range/Units 04:18 Sodium 136 (136-145) mEq/L Potassium 4.3 (3.5-5.1) mEq/L Chloride 101 (98-107) mEq/L Carbon Dioxide 31 H (23-29) mEq/L BUN 22 (8-23) mg/dL Creatinine 0.89 (0.60-1.20) mg/dL Glucose 86 (70-105) mg/dL Calcium 8.2 L (8.6-10.3) mg/dL Total Bilirubin 0.4 (0.3-1.0) mg/dL AST 49 H (13-39) Units/L ALT 19 (7-52) Units/L Alkaline Phosphatase 67 (34-104) Units/L Albumin 2.3 L (3.5-5.7) g/dL - VTE Documentation of Mechanical Device: Intermittent pneumatic compression device Consult Discharge Plan - Plan Referrals: Kole Barksdale MD [Primary Care Provider] - Michele Machuca MD [Non-Partnered Physician] -
[2017-06-23] MEDS ORDERED: Albuterol 2.5 MG/3 ML NEBULIZER IH PRN (14:30)
[2017-06-23] MEDS: SODIUM CHLORIDE 0.9% IVPB SCH (16:33)
[2017-06-23] MEDS: DAPTOMYCIN IVPB SCH (16:33)
[2017-06-23 22:35] LABS: Acinetobacter baumannii by PCR Not Detected (Not Detect); Candida albicans by PCR Not Detected (Not Detect); Candida glabrata by PCR ***DETECTED*** (Not Detect); Candida krusei by PCR Not Detected (Not Detect); Candida parapsilosis by PCR Not Detected (Not Detect); Candida tropicalis by PCR Not Detected (Not Detect); Enterococcus by PCR Not Detected (Not Detect); Escherichia coli by PCR Not Detected (Not Detect); Klebsiella oxytoca by PCR Not Detected (Not Detect); Klebsiella pneumoniae by PCR Not Detected (Not Detect); Pseudomonas aeruginosa by PCR Not Detected (Not Detect); Serratia marcescens by PCR Not Detected (Not Detect); Staphylococcus aureus by PCR Not Detected (Not Detect); Streptococcus agalactiae(B)PCR Not Detected (Not Detect); Streptococcus by PCR Not Detected (Not Detect); Streptococcus pneumoniae PCR Not Detected (Not Detect); Streptococcus pyogenes (A) PCR Not Detected (Not Detect); blaKPC Carbapenem-Resist Gene Not Detected (Not Detect); mecA Methicillin-Resist Gene Not Detected (Not Detect); vanA/B Vancomycin-Resist Genes Not Detected (Not Detect)
[2017-06-24] MEDS: *HR* LORazepam 0.5 MG TABLET PO PRN (00:46)
[2017-06-24] MEDS: Cefepime HCl 2,000 MG in Water for inj. (sterile) 20 ML 20 ML IVP SCH ×3 (00:46→16:31)
[2017-06-24] MEDS: MetroNIDAZOLE 500 MG/100 ML 500 MG/100 ML BAG IVPB SCH ×3 (00:47→16:31)
[2017-06-24 01:08] LABS: Acinetobacter baumannii by PCR Not Detected (Not Detect); Enterococcus by PCR Not Detected (Not Detect); Escherichia coli by PCR Not Detected (Not Detect); Klebsiella oxytoca by PCR Not Detected (Not Detect); Klebsiella pneumoniae by PCR Not Detected (Not Detect); Staphylococcus aureus by PCR Not Detected (Not Detect); Streptococcus agalactiae(B)PCR Not Detected (Not Detect); Streptococcus by PCR Not Detected (Not Detect); Streptococcus pneumoniae PCR Not Detected (Not Detect); Streptococcus pyogenes (A) PCR Not Detected (Not Detect); blaKPC Carbapenem-Resist Gene Not Detected (Not Detect); mecA Methicillin-Resist Gene Not Detected (Not Detect); vanA/B Vancomycin-Resist Genes Not Detected (Not Detect)
[2017-06-24 01:09] LABS: Candida albicans by PCR Not Detected (Not Detect); Candida glabrata by PCR ***DETECTED*** (Not Detect); Candida krusei by PCR Not Detected (Not Detect); Candida parapsilosis by PCR Not Detected (Not Detect); Candida tropicalis by PCR Not Detected (Not Detect); Pseudomonas aeruginosa by PCR Not Detected (Not Detect); Serratia marcescens by PCR Not Detected (Not Detect)
[2017-06-24] MEDS: *HR* OxyCODONE/APAP 10/325 TABLET PO PRN ×5 (04:37→21:58)
[2017-06-24] MEDS: *HR* Heparin 5,000 UNIT/ML VIAL SQ SCH ×2 (05:44→17:29)
[2017-06-24] MEDS: Ondansetron 4 MG/2 ML VIAL IVP PRN ×4 (05:44→21:58)
[2017-06-24] MEDS: Insulin LISPRO 300 UNITS/3 ML VIAL SQ SCH ×4 (08:26→20:35)
--- NOTE | 2017-06-24 09:21 | Infectious Disease Progress No ---
Date of Encounter: 06/24/17 Time of Encounter: 09:18 - Assessment and Plan (1) Sepsis Current Visit: Yes Status: Resolved Presented with 3 SIRS criteria. Not tachycardic, afebrile, leukocytosis resolved. Secondary to complicated diverticulitis, and MRSA bacteremia, hank glabrata bacteremia, VRE bacteremia, UTI 2nd to hank albicans and Hank glabrata, Qualifiers: Sepsis type: methicillin resistant Staphylococcus aureus Qualified Code(s) : A41.02 - Sepsis due to Methicillin resistant Staphylococcus aureus (2) Perforated diverticulum Current Visit: Yes Status: Acute Patient presented with acute onset of sharp abdominal pain. Has history of sigmoid diverticulitis. CT abdomen on 05/29 showed pneumoperitoneum with diverticulitis of sigmoid colon. Patient underwent exploratory celiotomy with sigmoid colectomy with colocolonic anastomosis on 06/04/17. She had a PICC line and subclavian CVC placed and confirmed by chest x-ray on . Patient was also started on Cipro and Flagyl on 05/29. Blood Cultures on are negative. Patient became febrie 06/09, with worsening leukocytosis and antibiotics were broadened to vancomycin and cefepime and Flagyl Fever of 102.1 on 06/11/17 and primary team started patient on Micafungin 100mg daily. CT abdomen/pelvis 06/11 increasing fluid collections along abdominal incision, and multiloculated fluid loculations throughout the abdomen and pelvis increased in size and organizing, decreased pneumoperitoneum 06/14/18 micafungin d/c and patient started on diflucan which was switched back to micafungin as patient grew hank glabrata in urine culture/blood. CT notes increased size of abscess to drain 10.7 cm within the abdomen. Worsening right hydronephrosis. And worsening seroma below incision measuring 4.1 x 5.6 cm. Status post percutaneous drainage of abdominal abscess by IR 06/17/2017: Cultures have grown MRSA, VRE, pansensitive Hank albicans CT 06/19/2017 shows improvement of previous abdominal abscess. Continued small pockets of fluid collections throughout the abdomen and pelvis. Persistent pneumoperitoneum persistent moderate right hydronephrosis and hydroureter in the presence of nephroureteral stent and slight interval decrease in size of fluid collection within the subcutaneous fat of the midline anterior abdominal wall. She had recurrent fever over weekend of jun 19-08/2017 and cultures were redrawn as below: Repeat blood cultures: 06/18/17 peripheral blood cultures grew hank glabrata (2 /2 cultures) and VRE (1/2 cultures) 06/19/17 peripheral cultures growing hank glabrata / cvc blood cultures VRE and hank glabrata 06/19/17 central venous catheter tip culture growing yeast 06/20/17 peripheral blood culture growing Hank glabrata 06/20/17 PICC blood culture hank growth Miller and gram- negative rip (proteus sepcies) 06/21/17 peripheral blood culture negative for growth 06/21/17 R. PICC blood culture hank glabrata/ Afebrile overnight. Glabrata sensitive to fluconozole. will d/c micafungin and start fluconazole (give stress dose of 800 mg today, start maintenance dose of 400 mg daily tomorrow). New G- bacteremia as noted above, likely contamination as it grew on 06/20 culture but not 06/21 or 06/19. cefepime 2000mg Q12h and flagyl 500mg Q8h again. Antibiotic duration depends on clinical picture. (3) Candidemia Current Visit: Yes Status: Acute as stated above patient has candidia glabrata and parapsilosis in blood. start fluconazole will need ophtomologist appointment to evualuate for endophthalmitis (4) VRE bacteremia Current Visit: Yes Status: Acute 06/19/17 CVC blood culture + for VRE Patient was switched to daptomycin over the weekend. CK is 23 repeat blood cultures collected 06/21/2017 are preliminary negative for VRE. continue daptomycin. antibiotic duration depends of clinical picture. (5) MRSA bacteremia Current Visit: Yes Status: Resolved Complicated MRSA bacteremia patient had left knee prosthetic joint Blood cultures from 06/08 from subclavian CVC and PICC line are positive for MRSA. Patient started on vancomycin and cefepime on 06/08 Since starting vancomycin patient's white blood cell count has improved from 15.1-10.9. Last trough of vancomycin was 18.3. Patient had repeat blood cultures drawn CvC, PICC and peripheral 06/10/17 all negative x6. PICC line culture of tip negative TTE: LVEF 65-70% mild tricuspid regurgiations, no vavular vegetations are noted vanc trough 17 kidney function stable Repeat peripheral blood cultures 06/18/17 and 06/19/17 are negative for MRSA. Subclavian CVC has been removed. PICC has been placed in the right upper extremity: Repeat blood cultures ordered and preliminary results are negative for MRSA. Plan: continue daptomycin. Antibiotic duration will be determined by results of EMILIE, which patient will obtain once deemed by primary team to be stable for procedure. (6) UTI (urinary tract infection) Current Visit: Yes Status: Acute 06/13 urine culture Hank albicans and glabrata harry d/c glabrata sensitive to fluconazole will d/c micafungin and start fluconazole daily as state above Qualifiers: Urinary tract infection type: acute cystitis Hematuria presence: without hematuria Qualified Code(s): N30.00 - Acute cystitis without hematuria (7) Hypoxia Current Visit: Yes Status: Acute stable patient requiring O2 supplementation since being admitted O2 requirement 3L on lung exam clear anteriorly CXR 06/10/17 negative for pleural effusion, consolidation. Free air under the right hemidiaphragm noted again unchanged. sob unchanged from yesterday plan as per primary (8) Hydronephrosis Current Visit: Yes Status: Acute Discovered on CT abdomen 06/02 which showed right hydroureter with right ureteritis and bilateral pyelitis Underwent on 06/04/17 right ureteral stent placement and left ureteral catheter placement by urology. Patient has had 2 urine cultures which have been negative for growth. Urinalysis does not indicate any signs of infection. Patient has a Harry catheter out pitting light red urine. Likely secondary to urologic procedure. Patient is on broad-spectrum antibiotics, vancomycin, cefepime which will cover urinary tract infection. Repeat CT abdomen and pelvis on 06/07 showed improvement of right hydronephrosis and stable stent placement. Repeat CT at 06/16/2017 shows worsening right hydronephrosis. Urology reports no additional intervention needed at this point. Qualifiers: Hydronephrosis type: other Qualified Code(s): N13.39 - Other hydronephrosis (9) Hypothyroidism Current Visit: Yes Status: Chronic As per primary. Qualifiers: Hypothyroidism type: acquired Qualified Code(s): E03.9 - Hypothyroidism, unspecified (10) HTN (hypertension) Current Visit: Yes Status: Chronic controlled. Qualifiers: Hypertension type: essential hypertension Qualified Code(s): I10 - Essential (primary) hypertension (11) DVT prophylaxis Current Visit: Yes Status: Acute heparin SQ - Subjective Interval history: Patient is smiling when I entered the room. She is pleasantly sitting in bed. Reported her abdominal pain, shortness of breath has improved. She has been afebrile overnight. Surgery is planning on repeating CT abdomen and pelvis, and removing her enedina. She has had no additional output and her MARIUSZ drain. She has no complaints. She is tolerating her diet. Infect Dis PN-Objective Data - Labs CBC & Chem 7: 06/23/17 04:18 06/23/17 04:18 Labs: Laboratory Results - last 24 hr 06/19/17 06/19/17 06/20/17 20:50 23:36 04:22 Sodium Potassium Chloride Carbon Dioxide BUN Creatinine Est GFR ( Amer) Est GFR (Non-Af Amer) BUN/Creatinine Ratio Glucose POC Glucose 203 H 115 H 118 H Calculated Osmolality Calcium Phosphorus Magnesium A. baumannii (PCR) Hank albicans (PCR) C. glabrata (PCR) C. krusei (PCR) C. parapsilosis (PCR) C. tropicalis (PCR) Enterobacteriac sp PCR E. cloacae complex PCR Enterococcus sp PCR E. coli (PCR) H. influenzae (PCR) Klebsiella oxytoca PCR Klebsiella pneumoniae List. monocytogenes PCR N. meningitidis (PCR) Proteus species (PCR) Serratia marcescens PCR Staphylococcus sp PCR Staph aureus (PCR) mecA-Methicil Res Gene Streptococcus sp PCR Group A Strep DNA Group B Strep (PCR) Strep pneumoniae (PCR) P. aeruginosa (PCR) Bryant/B-Vanco Res Genes KPC (blaKPC) Detect PCR 06/20/17 06/21/17 06/21/17 10:15 04:40 04:40 Sodium 133 L Potassium 3.9 Chloride 98 Carbon Dioxide 32 H BUN 26 H Creatinine 0.81 Est GFR ( Amer) > 60 Est GFR (Non-Af Amer) > 60 BUN/Creatinine Ratio 32 H Glucose 95 POC Glucose Calculated Osmolality 281 Calcium 8.0 L Phosphorus 2.7 Magnesium 2.3 A. baumannii (PCR) Not Detected Not Detected Hank albicans (PCR) Not Detected Not Detected C. glabrata (PCR) DETECTED A DETECTED A C. krusei (PCR) Not Detected Not Detected C. parapsilosis (PCR) Not Detected Not Detected C. tropicalis (PCR) Not Detected Not Detected Enterobacteriac sp PCR DETECTED A Not Detected E. cloacae complex PCR Not Detected Not Detected Enterococcus sp PCR Not Detected Not Detected E. coli (PCR) Not Detected Not Detected H. influenzae (PCR) Not Detected Not Detected Klebsiella oxytoca PCR Not Detected Not Detected Klebsiella pneumoniae Not Detected Not Detected List. monocytogenes PCR Not Detected Not Detected N. meningitidis (PCR) Not Detected Not Detected Proteus species (PCR) DETECTED A Not Detected Serratia marcescens PCR Not Detected Not Detected Staphylococcus sp PCR Not Detected Not Detected Staph aureus (PCR) Not Detected Not Detected mecA-Methicil Res Gene Not Detected Not Detected Streptococcus sp PCR Not Detected Not Detected Group A Strep DNA Not Detected Not Detected Group B Strep (PCR) Not Detected Not Detected Strep pneumoniae (PCR) Not Detected Not Detected P. aeruginosa (PCR) Not Detected Not Detected Bryant/B-Vanco Res Genes Not Detected Not Detected KPC (blaKPC) Detect PCR Not Detected Not Detected 06/23/17 06/23/17 12:14 16:16 Sodium Potassium Chloride Carbon Dioxide BUN Creatinine Est GFR ( Amer) Est GFR (Non-Af Amer) BUN/Creatinine Ratio Glucose POC Glucose 113 H 112 H Calculated Osmolality Calcium Phosphorus Magnesium A. baumannii (PCR) Hank albicans (PCR) C. glabrata (PCR) C. krusei (PCR) C. parapsilosis (PCR) C. tropicalis (PCR) Enterobacteriac sp PCR E. cloacae complex PCR Enterococcus sp PCR E. coli (PCR) H. influenzae (PCR) Klebsiella oxytoca PCR Klebsiella pneumoniae List. monocytogenes PCR N. meningitidis (PCR) Proteus species (PCR) Serratia marcescens PCR Staphylococcus sp PCR Staph aureus (PCR) mecA-Methicil Res Gene Streptococcus sp PCR Group A Strep DNA Group B Strep (PCR) Strep pneumoniae (PCR) P. aeruginosa (PCR) Bryant/B-Vanco Res Genes KPC (blaKPC) Detect PCR Cultures: Cultures 06/19/17 09:12 Blood Culture - Final Central Venous Catheter Vancomycin Resistant Enterococcus faecium Hank glabrata 06/20/17 10:15 Blood Culture - Preliminary Peripheral Central Cath, Picc Gram Negative Rip Hank glabrata 06/20/17 10:06 Blood Culture - Final Peripheral Venipuncture Hank glabrata 06/18/17 08:41 Blood Culture - Final Peripheral Venipuncture Hank glabrata 06/19/17 00:26 Blood Culture - Final Peripheral Venipuncture Hank glabrata 06/19/17 00:20 Blood Culture - Final Peripheral Venipuncture Hank glabrata 06/18/17 10:44 Blood Culture - Final Peripheral Venipuncture Vancomycin Resistant Enterococcus faecium Hank glabrata 06/13/17 04:38 Urine Culture - Final Urine,[place] Hank glabrata Hank albicans 06/21/17 04:40 Blood Culture - Preliminary Central Venous Catheter Hank glabrata 06/21/17 05:49 Blood Culture - Preliminary Peripheral Venipuncture No growth. 06/19/17 11:35 Catheter Tip Culture - Preliminary Intravenous or Arterial Cath Yeast Species 06/17/17 11:20 Body Fluid Culture - Final Other-Specify in Comments Hank albicans Methicillin Resistant S.aureus Enterococcus faecium 06/12/17 20:08 Blood Culture - Final Peripheral Venipuncture No growth. 06/10/17 05:45 Blood Culture - Final Peripheral Central Cath, Picc No growth. 06/10/17 05:41 Blood Culture - Final Peripheral Venipuncture No growth. 06/10/17 11:35 Blood Culture - Final Peripheral Central Cath, Picc No growth. 06/10/17 05:45 Blood Culture - Final Central Venous Catheter No growth. 06/10/17 05:46 Blood Culture - Final Peripheral Venipuncture No growth. 06/10/17 11:35 Blood Culture - Final Central Venous Catheter No growth. 06/10/17 16:40 Catheter Tip Culture - Final Intravenous or Arterial Cath No growth. 06/08/17 06:33 Blood Culture - Final Peripheral Central Cath, Picc Methicillin Resistant S.aureus 06/08/17 06:33 Blood Culture - Final Central Venous Catheter Methicillin Resistant S.aureus 06/08/17 04:20 Urine Culture - Final Urine,Clean Catch No significant growth. 06/03/17 09:25 Urine Culture - Final Urine,[place] No growth. 05/30/17 09:56 Blood Culture - Final Peripheral Venipuncture No growth. 05/30/17 10:10 Blood Culture - Final Peripheral Venipuncture No growth. Serology 06/21/17 06/20/17 06/19/17 Range/Units 04:40 10:15 16:10 Ur Specimen Adequacy Urine Color Yellow (Yellow) Urine Clarity Clear (Clear) Urine pH 6.5 (5.0-8.0) pH Units Ur Specific [place] 1.021 (1.010-1.025) Urine Protein 30 H (Neg-Trace) mg/dL Urine Glucose (UA) Normal (Normal) mg/dL Urine Ketones Negative (Negative) mg/dL Urine Blood Large H (Negative) Urine Nitrite Negative (Negative) Urine Bilirubin Negative (Negative) Urine Urobilinogen Normal (Normal) mg/dL Ur Leukocyte Esterase Negative (Negative) Urine Microscopic RBC 0-3 (0-3) per hpf Urine Microscopic WBC 0-3 (0-3) per hpf Ur Squamous Epith Cells Many H (None-Few) per lpf Urine Bacteria None Seen (None-Few) per hpf Hyaline Casts None Seen (None-Few) per lpf Ur Culture Indicated? NO (NO) A. baumannii (PCR) Not Detected Not Detected (Not Detect) Chlamy pneumoniae PCR (Not Detect) Adenovirus (PCR) (Not Detect) B. pertussis DNA (PCR) (Not Detect) B.parapertussis DNA PCR (Not Detect) Hank albicans (PCR) Not Detected Not Detected (Not Detect) C. glabrata (PCR) DETECTED A DETECTED A (Not Detect) C. krusei (PCR) Not Detected Not Detected (Not Detect) C. parapsilosis (PCR) Not Detected Not Detected (Not Detect) C. tropicalis (PCR) Not Detected Not Detected (Not Detect) Coronavirus OC43 (PCR) (Not Detect) Coronavirus HKU1 (PCR) (Not Detect) Coronavirus 229E (PCR) (Not Detect) Coronavirus NL63 (PCR) (Not Detect) Enterobacteriac sp PCR Not Detected DETECTED A (Not Detect) E. cloacae complex PCR Not Detected Not Detected (Not Detect) Enterococcus sp PCR Not Detected Not Detected (Not Detect) E. coli (PCR) Not Detected Not Detected (Not Detect) H. influenzae (PCR) Not Detected Not Detected (Not Detect) Human Metapneumovir PCR (Not Detect) Influenza A (H1) PCR (Not Detect) Influ A (H1N1/09) PCR (Not Detect) Influenza A (H3) PCR (Not Detect) Influenza A Untype (PCR) (Not Detect) Influenza Type B (PCR) (Not Detect) Klebsiella oxytoca PCR Not Detected Not Detected (Not Detect) Klebsiella pneumoniae Not Detected Not Detected (Not Detect) List. monocytogenes PCR Not Detected Not Detected (Not Detect) M.pneumoniae DNA (PCR) (Not Detect) N. meningitidis (PCR) Not Detected Not Detected (Not Detect) Parainfluenza 1 (PCR) (Not Detect) Parainfluenza 2 (PCR) (Not Detect) Parainfluenza 3 (PCR) (Not Detect) Parainfluenza 4 (PCR) (Not Detect) Proteus species (PCR) Not Detected DETECTED A (Not Detect) RSV (PCR) (Not Detect) Entero/Rhino (PCR) (Not Detect) Serratia marcescens PCR Not Detected Not Detected (Not Detect) Staphylococcus sp PCR Not Detected Not Detected (Not Detect) Staph aureus (PCR) Not Detected Not Detected (Not Detect) mecA-Methicil Res Gene Not Detected Not Detected (Not Detect) Streptococcus sp PCR Not Detected Not Detected (Not Detect) Group A Strep DNA Not Detected Not Detected (Not Detect) Group B Strep (PCR) Not Detected Not Detected (Not Detect) Strep pneumoniae (PCR) Not Detected Not Detected (Not Detect) P. aeruginosa (PCR) Not Detected Not Detected (Not Detect) Bryant/B-Vanco Res Genes Not Detected Not Detected (Not Detect) KPC (blaKPC) Detect PCR Not Detected Not Detected (Not Detect) 06/19/17 06/19/17 06/19/17 Range/Units 09:12 09:12 09:12 Ur Specimen Adequacy Urine Color (Yellow) Urine Clarity (Clear) Urine pH (5.0-8.0) pH Units Ur Specific [place] (1.010-1.025) Urine Protein (Neg-Trace) mg/dL Urine Glucose (UA) (Normal) mg/dL Urine Ketones (Negative) mg/dL Urine Blood (Negative) Urine Nitrite (Negative) Urine Bilirubin (Negative) Urine Urobilinogen (Normal) mg/dL Ur Leukocyte Esterase (Negative) Urine Microscopic RBC (0-3) per hpf Urine Microscopic WBC (0-3) per hpf Ur Squamous Epith Cells (None-Few) per lpf Urine Bacteria (None-Few) per hpf Hyaline Casts (None-Few) per lpf Ur Culture Indicated? (NO) A. baumannii (PCR) Not Detected Not Detected (Not Detect) Chlamy pneumoniae PCR Not Detected (Not Detect) Adenovirus (PCR) Not Detected (Not Detect) B. pertussis DNA (PCR) Not Detected (Not Detect) B.parapertussis DNA PCR Not Detected (Not Detect) Hank albicans (PCR) Not Detected Not Detected (Not Detect) C. glabrata (PCR) DETECTED A DETECTED A (Not Detect) C. krusei (PCR) Not Detected Not Detected (Not Detect) C. parapsilosis (PCR) Not Detected DETECTED A (Not Detect) C. tropicalis (PCR) Not Detected Not Detected (Not Detect) Coronavirus OC43 (PCR) Not Detected (Not Detect) Coronavirus HKU1 (PCR) Not Detected (Not Detect) Coronavirus 229E (PCR) Not Detected (Not Detect) Coronavirus NL63 (PCR) Not Detected (Not Detect) Enterobacteriac sp PCR Not Detected Not Detected (Not Detect) E. cloacae complex PCR Not Detected Not Detected (Not Detect) Enterococcus sp PCR Not Detected DETECTED A (Not Detect) E. coli (PCR) Not Detected Not Detected (Not Detect) H. influenzae (PCR) Not Detected Not Detected (Not Detect) Human Metapneumovir PCR Not Detected (Not Detect) Influenza A (H1) PCR Not Detected (Not Detect) Influ A (H1N1/09) PCR Not Detected (Not Detect) Influenza A (H3) PCR Not Detected (Not Detect) Influenza A Untype (PCR) Not Detected (Not Detect) Influenza Type B (PCR) Not Detected (Not Detect) Klebsiella oxytoca PCR Not Detected Not Detected (Not Detect) Klebsiella pneumoniae Not Detected Not Detected (Not Detect) List. monocytogenes PCR Not Detected Not Detected (Not Detect) M.pneumoniae DNA (PCR) Not Detected (Not Detect) N. meningitidis (PCR) Not Detected Not Detected (Not Detect) Parainfluenza 1 (PCR) Not Detected (Not Detect) Parainfluenza 2 (PCR) Not Detected (Not Detect) Parainfluenza 3 (PCR) Not Detected (Not Detect) Parainfluenza 4 (PCR) Not Detected (Not Detect) Proteus species (PCR) Not Detected Not Detected (Not Detect) RSV (PCR) Not Detected (Not Detect) Entero/Rhino (PCR) Not Detected (Not Detect) Serratia marcescens PCR Not Detected Not Detected (Not Detect) Staphylococcus sp PCR Not Detected Not Detected (Not Detect) Staph aureus (PCR) Not Detected Not Detected (Not Detect) mecA-Methicil Res Gene N/A N/A (Not Detect) Streptococcus sp PCR Not Detected Not Detected (Not Detect) Group A Strep DNA Not Detected Not Detected (Not Detect) Group B Strep (PCR) Not Detected Not Detected (Not Detect) Strep pneumoniae (PCR) Not Detected Not Detected (Not Detect) P. aeruginosa (PCR) Not Detected Not Detected (Not Detect) Bryant/B-Vanco Res Genes N/A DETECTED A (Not Detect) KPC (blaKPC) Detect PCR N/A N/A (Not Detect) 06/19/17 06/18/17 06/18/17 Range/Units 00:20 10:44 08:41 Ur Specimen Adequacy Urine Color (Yellow) Urine Clarity (Clear) Urine pH (5.0-8.0) pH Units Ur Specific [place] (1.010-1.025) Urine Protein (Neg-Trace) mg/dL Urine Glucose (UA) (Normal) mg/dL Urine Ketones (Negative) mg/dL Urine Blood (Negative) Urine Nitrite (Negative) Urine Bilirubin (Negative) Urine Urobilinogen (Normal) mg/dL Ur Leukocyte Esterase (Negative) Urine Microscopic RBC (0-3) per hpf Urine Microscopic WBC (0-3) per hpf Ur Squamous Epith Cells (None-Few) per lpf Urine Bacteria (None-Few) per hpf Hyaline Casts (None-Few) per lpf Ur Culture Indicated? (NO) A. baumannii (PCR) Not Detected Not Detected Not Detected (Not Detect) Chlamy pneumoniae PCR (Not Detect) Adenovirus (PCR) (Not Detect) B. pertussis DNA (PCR) (Not Detect) B.parapertussis DNA PCR (Not Detect) Hank albicans (PCR) Not Detected Not Detected Not Detected (Not Detect) C. glabrata (PCR) DETECTED A Not Detected DETECTED A (Not Detect ) C. krusei (PCR) Not Detected Not Detected Not Detected (Not Detect) C. parapsilosis (PCR) Not Detected Not Detected Not Detected (Not Detect) C. tropicalis (PCR) Not Detected Not Detected Not Detected (Not Detect) Coronavirus OC43 (PCR) (Not Detect) Coronavirus HKU1 (PCR) (Not Detect) Coronavirus 229E (PCR) (Not Detect) Coronavirus NL63 (PCR) (Not Detect) Enterobacteriac sp PCR Not Detected Not Detected Not Detected (Not Detect) E. cloacae complex PCR Not Detected Not Detected Not Detected (Not Detect) Enterococcus sp PCR Not Detected DETECTED A Not Detected (Not Detect) E. coli (PCR) Not Detected Not Detected Not Detected (Not Detect) H. influenzae (PCR) Not Detected Not Detected Not Detected (Not Detect) Human Metapneumovir PCR (Not Detect) Influenza A (H1) PCR (Not Detect) Influ A (H1N1/09) PCR (Not Detect) Influenza A (H3) PCR (Not Detect) Influenza A Untype (PCR) (Not Detect) Influenza Type B (PCR) (Not Detect) Klebsiella oxytoca PCR Not Detected Not Detected Not Detected (Not Detect) Klebsiella pneumoniae Not Detected Not Detected Not Detected (Not Detect) List. monocytogenes PCR Not Detected Not Detected Not Detected (Not Detect) M.pneumoniae DNA (PCR) (Not Detect) N. meningitidis (PCR) Not Detected Not Detected Not Detected (Not Detect) Parainfluenza 1 (PCR) (Not Detect) Parainfluenza 2 (PCR) (Not Detect) Parainfluenza 3 (PCR) (Not Detect) Parainfluenza 4 (PCR) (Not Detect) Proteus species (PCR) Not Detected Not Detected Not Detected (Not Detect) RSV (PCR) (Not Detect) Entero/Rhino (PCR) (Not Detect) Serratia marcescens PCR Not Detected Not Detected Not Detected (Not Detect) Staphylococcus sp PCR Not Detected Not Detected Not Detected (Not Detect) Staph aureus (PCR) Not Detected Not Detected Not Detected (Not Detect) mecA-Methicil Res Gene Not Detected N/A N/A (Not Detect) Streptococcus sp PCR Not Detected Not Detected Not Detected (Not Detect) Group A Strep DNA Not Detected Not Detected Not Detected (Not Detect) Group B Strep (PCR) Not Detected Not Detected Not Detected (Not Detect) Strep pneumoniae (PCR) Not Detected Not Detected Not Detected (Not Detect) P. aeruginosa (PCR) Not Detected Not Detected Not Detected (Not Detect) Bryant/B-Vanco Res Genes Not Detected DETECTED A N/A (Not Detect) KPC (blaKPC) Detect PCR Not Detected N/A N/A (Not Detect) 06/08/17 06/08/17 Range/Units 06:33 04:20 Ur Specimen Adequacy Urine Color Dark Yellow (Yellow) Urine Clarity Clear (Clear) Urine pH 6.0 (5.0-8.0) pH Units Ur Specific [place] > 1.030 H (1.010-1.025) Urine Protein 100 H (Neg-Trace) mg/dL Urine Glucose (UA) 100 H (Normal) mg/dL Urine Ketones Negative (Negative) mg/dL Urine Blood Large H (Negative) Urine Nitrite Negative (Negative) Urine Bilirubin Negative (Negative) Urine Urobilinogen Normal (Normal) mg/dL Ur Leukocyte Esterase Small H (Negative) Urine Microscopic RBC (0-3) per hpf Urine Microscopic WBC (0-3) per hpf Ur Squamous Epith Cells (None-Few) per lpf Urine Bacteria (None-Few) per hpf Hyaline Casts (None-Few) per lpf Ur Culture Indicated? YES A (NO) A. baumannii (PCR) Not Detected (Not Detect) Chlamy pneumoniae PCR (Not Detect) Adenovirus (PCR) (Not Detect) B. pertussis DNA (PCR) (Not Detect) B.parapertussis DNA PCR (Not Detect) Hank albicans (PCR) Not Detected (Not Detect) C. glabrata (PCR) Not Detected (Not Detect) C. krusei (PCR) Not Detected (Not Detect) C. parapsilosis (PCR) Not Detected (Not Detect) C. tropicalis (PCR) Not Detected (Not Detect) Coronavirus OC43 (PCR) (Not Detect) Coronavirus HKU1 (PCR) (Not Detect) Coronavirus 229E (PCR) (Not Detect) Coronavirus NL63 (PCR) (Not Detect) Enterobacteriac sp PCR Not Detected (Not Detect) E. cloacae complex PCR Not Detected (Not Detect) Enterococcus sp PCR Not Detected (Not Detect) E. coli (PCR) Not Detected (Not Detect) H. influenzae (PCR) Not Detected (Not Detect) Human Metapneumovir PCR (Not Detect) Influenza A (H1) PCR (Not Detect) Influ A (H1N1/09) PCR (Not Detect) Influenza A (H3) PCR (Not Detect) Influenza A Untype (PCR) (Not Detect) Influenza Type B (PCR) (Not Detect) Klebsiella oxytoca PCR Not Detected (Not Detect) Klebsiella pneumoniae Not Detected (Not Detect) List. monocytogenes PCR Not Detected (Not Detect) M.pneumoniae DNA (PCR) (Not Detect) N. meningitidis (PCR) Not Detected (Not Detect) Parainfluenza 1 (PCR) (Not Detect) Parainfluenza 2 (PCR) (Not Detect) Parainfluenza 3 (PCR) (Not Detect) Parainfluenza 4 (PCR) (Not Detect) Proteus species (PCR) Not Detected (Not Detect) RSV (PCR) (Not Detect) Entero/Rhino (PCR) (Not Detect) Serratia marcescens PCR Not Detected (Not Detect) Staphylococcus sp PCR DETECTED A (Not Detect) Staph aureus (PCR) DETECTED A (Not Detect) mecA-Methicil Res Gene DETECTED A (Not Detect) Streptococcus sp PCR Not Detected (Not Detect) Group A Strep DNA Not Detected (Not Detect) Group B Strep (PCR) Not Detected (Not Detect) Strep pneumoniae (PCR) Not Detected (Not Detect) P. aeruginosa (PCR) Not Detected (Not Detect) Bryant/B-Vanco Res Genes Not Detected (Not Detect) KPC (blaKPC) Detect PCR Not Detected (Not Detect) Exam - Constitutional Vitals: Temp Pulse Resp BP Pulse Ox 98.1 F 86 16 118/58 97 06/24/17 09:04 06/24/17 09:04 06/24/17 09:04 06/24/17 09:04 06/24/17 09:04 - Additional findings Additional findings: General: Pleasant without distress.smiling HEENT: Absent thrush. Heart: Regular rate and rhythm with no murmur Lungs: Clear to auscultation bilaterally Abdomen: Soft, nontender, nondistended, positive bowel sounds. Surgical incision intact, enedina intact (mild erythema around distal enedina), and MARIUSZ drain no new output: not emptied for last 24 hours. (5cc in bag) . Skin: warm and dry Extremities: Absent pedal edema, Neuro: Alert and oriented 3 Vascular: Pedal and radial pulses 2 out of 4 - VTE Documentation of Mechanical Device: Intermittent pneumatic compression device Consult Discharge Plan - Plan Referrals: Kole Barksdale MD [Primary Care Provider] - Michele Machuca MD [Non-Partnered Physician] - - Attending Attestation I examined this patient and my medical decision-making was reviewed with the Resident Physician. I agree with the documented findings, disposition and treatment plan as described except to the extent set forth below. Repeat CT noted blood cultures noted (2/ and 2/ negative for proteus 2/4 positive) i'm not sure that is a true infection continue dapto, cefepime (dose adjust) flagyl and d/c micafungin start fluconazole with loading dose then 400 mg daily await EMILIE await ophthalmology eval
--- NOTE | 2017-06-24 10:49 | Internal Med Progress Note ---
Date of Encounter: 06/24/17 Time of Encounter: 10:47 - Assessment and plan (1) Anemia Current Visit: Yes Status: Chronic Assessment and plan: monitor hb, transfusion for Hb <7 Qualifiers: Anemia type: unspecified type Qualified Code(s): D64.9 - Anemia, unspecified (2) Abdominal abscess Current Visit: Yes Status: Acute Assessment and plan: CT 06/16 revealed enlarging fluid collections suspicious for organizing abscess IR performed percutaneous drainage of abscess 06/17 Cultures grew candidia MRSA, Enterococcus faecium-VRE Continue current antibiotics CT scan today shows near resolution, management per surgery (3) MRSA bacteremia Current Visit: Yes Status: Resolved Assessment and plan: Blood cultures positive for MRSA bacteremia, with suspected source is PICC line vs central venous line TTE shows ejection fraction of 65-70% with mild tricuspid regurgitation, no vegetations noted No MRSA in blood cultures since 06/10 (4) Perforated diverticulum Current Visit: Yes Status: Acute Assessment and plan: Sepsis secondary to VRE, MRSA and yeast bacteremia possibly due to perforated diverticulum Still having fevers, blood cultures from 06/19 noted Awaiting blood cultures from 06/21 D/C TPN POD #20 s/p sigmoid colectomy with stapled colocolonic anastomosis Infectious disease is following (5) UTI (urinary tract infection) Current Visit: Yes Status: Acute Assessment and plan: fungal, continue current meds Qualifiers: Urinary tract infection type: acute cystitis Hematuria presence: without hematuria Qualified Code(s): N30.00 - Acute cystitis without hematuria (6) VRE bacteremia Current Visit: Yes Status: Acute Assessment and plan: as in sepsis (7) HTN (hypertension) Current Visit: Yes Status: Chronic Assessment and plan: BP well controlled at this visit recently Hold medications Qualifiers: Hypertension type: essential hypertension Qualified Code(s): I10 - Essential (primary) hypertension (8) Hypothyroidism Current Visit: Yes Status: Chronic Assessment and plan: Continue po synthroid, patient is tolerating po now Qualifiers: Hypothyroidism type: acquired Qualified Code(s): E03.9 - Hypothyroidism, unspecified (9) Morbid obesity with BMI of 45.0-49.9, adult Current Visit: Yes Status: Chronic Assessment and plan: lifestyle modification (10) Sepsis Current Visit: Yes Status: Resolved Assessment and plan: as in diverticulitis Qualifiers: Sepsis type: methicillin resistant Staphylococcus aureus Qualified Code(s) : A41.02 - Sepsis due to Methicillin resistant Staphylococcus aureus (11) Acute respiratory failure with hypoxia Current Visit: Yes Status: Resolved Assessment and plan: resolved, comfortable on room air (12) Depression Current Visit: Yes Status: Acute Assessment and plan: trazodone HS from tonight NO suicidal ideations Qualifiers: Depression Type: unspecified Qualified Code(s): F32.9 - Major depressive disorder, single episode, unspecified - Subjective Interval history: Seen and examined with partner at bedside Hospital day 26 Multiple complications Initial admission was for acute perforated diverticulitis, complicated by MRSA bacteremia, VRE bacteremia and fungemia Started on cipro/flagyl 05/29, admitting blood cultures 05/30 were negative X 2 bottles Patient underwent exploratory celiotomy with sigmoid colectomy on 06/04/17. She had a PICC line and subclavian CVC placed and confirmed by chest x-ray on . patient became febrile 06/09, with worsening leukocytosis and antibiotics were broadened to vancomycin and cefepime and Flagyl was continued. She developed fever of 102.1 on 06/11/17 and primary team started patient on Micafungin 100mg daily. CT abdomen/pelvis same day showed increasing fluid collections along abdominal incision, and multiloculated fluid loculations throughout the abdomen and pelvis increased in size and organizing, decreased pneumoperitoneum 06/14/18 micafungin d/c and patient started on diflucan CT 18 notes increased size of abscess to drain 10.7 cm within the abdomen. Worsening right hydronephrosis. An worsening seroma below incision measuring 4.1 x 5.6 cm. s/p percutaneous drainage of abdominal abscess by IR 06/17/2017: Cultures have grown MRSA, VRE, pansensitive Jayna albicans Repeat blood cultures: 06/18/17 peripheral blood cultures grew yeast (2/2 cultures ) and VRE (1/2 cultures) 06/19/17 peripheral cultures growing yeast and VRE -drawn from CVC 06/19/17 central venous catheter tip culture preliminary negative 06/20/17 blood cultures -source were peripheral, CVC and PICC line: GNR, C. galbrata 06/21/17 blood culture . C. galbrata. 1 bottle prelim negative 06/23/17: Pending Seen at bedside with spouse She is depressed and very teary, and asks for a medication for depression, she is also not having adequate night rest Plan for today- Last fever done 06/21/17, afebrile since then Continue Current antibiotics- Daptomycin, Cefepime, Flagyl, Fluconazole ( switched today). EMILIE today Discontinue PICC Rpt abd/pelvis CT with contrast noted for markable improvement, drain removal is up to Dr. Machuca Ophthal eval for fungemia Blood pressure is low normal-hold blood pressure medications Monitor HB, transfusion for HB <7 - Constitutional Vitals: Temp Pulse Resp BP Pulse Ox 98.1 F 86 16 118/58 97 06/24/17 09:04 06/24/17 09:04 06/24/17 09:04 06/24/17 09:04 06/24/17 09:04 General appearance: Present: cooperative, A&O X 3, pleasant, no acute distress, obese, answers questions appropriately - Head Head exam: Present: atraumatic, normocephalic - Eye Eye exam: Present: PERRL, conjuntiva pink, sclera anicteric Pupils: Present: PERRL - Neck Neck exam general surgery: Present: supple, trachea midline. Absent: lymphadenopathy - Respiratory Respiratory exam: Present: CTAB. Absent: accessory muscle use, rales, rhonchi, wheezes - Cardiovascular Cardiovascular exam: Present: RRR, +S1, +S2. Absent: diastolic murmur, gallop, rubs, systolic murmur - GI/Abdominal GI/Abdominal exam: Present: normal bowel sounds Additional comments: Obese, soft, enedina intact, drain with minimal effluent - Extremities Exam Extremities exam: Present: warm, radial pulses palpable and symmetrical. Absent : calf tenderness, cyanotic, pedal edema - Neurological Exam Neurological exam: Present: alert, CN II-XII intact, oriented X3, no focal deficits. Absent: pronater drift, facial droop, speech deficit - Skin Skin exam: Present: dry, intact Internal Medicine: Result - Labs CBC & Chem 7: 06/23/17 04:18 06/23/17 04:18 Labs: BMP 06/21/17 04:40 Sodium 133 L Potassium 3.9 Chloride 98 Carbon Dioxide 32 H BUN 26 H Creatinine 0.81 Glucose 95 Calcium 8.0 L - ABG Interpretation ABG results: ABG ABG pH 7.43 pH Units (7.32-7.45) 06/08/17 04:24 ABG pCO2 35 mmHg (35-45) 06/08/17 04:24 ABG pO2 72 mmHg (85-104) L 06/08/17 04:24 ABG O2 Saturation 95 % (95-98) 06/08/17 04:24 PT/INR, D-dimer PT 16.4 Seconds (9.4-12.1) H 06/17/17 06:18 - VTE Documentation of Mechanical Device: Intermittent pneumatic compression device Consult Discharge Plan - Plan Referrals: Kole Barksdale MD [Primary Care Provider] - Michele Machuca MD [Non-Partnered Physician] -
[2017-06-24] MEDS: Micafungin 100 MG in 0.9 % Sodium Chloride Mini Bag 100 ML IVPB SCH (11:16)
--- NOTE | 2017-06-24 11:20 | Event Note ---
Date of Encounter: 06/24/17 Time of Encounter: 11:18 EMILIE requested by ID/IM regarding bacteremia. Patient's chart reviewed. Discussed the R/B/A to the procedure in detail with patient and . She voiced understanding and wishes to proceed, but would like to wait until tomorrow. All questions answered. Please call if any questions or concerns. Thanks, Juan M Levi DO, [facility] [phone]
[2017-06-24] MEDS: DAPTOMYCIN IVPB SCH (16:30)
[2017-06-24] MEDS: SODIUM CHLORIDE 0.9% IVPB SCH (16:30)
[2017-06-24] MEDS: Fluconazole 400 MG/200 ML 400 MG/200 ML BAG IVPB SCH ×2 (17:30→20:35)
--- NOTE | 2017-06-24 19:06 | General Surgery Progress Note ---
Date of Encounter: 06/24/17 Time of Encounter: 18:00 Subjective Patient reports: no new complaints Narrative: General Surgery - POD #20 patient voicing no new complaints but does note removal PICC with difficulty obtaining peripheral access - multiple attempts required to achieve access Patient remains afebrile; pulse 7787, respirations 16, blood pressure 117/ 72. SPO2 on 2 L/m nasal cannula 93-97%. Lungs: Clear; no abdominal pain with deep inspiration Abdomen: Soft with no obvious tenderness. Patient appears to be tolerating oral intake; active bowel sounds. last BM recorded 06/22/17 Midline incision clean and dry Percutaneously placed drain - no significant output for almost 72 hours; catheter removed after checking CT. CT abdomen and pelvis reviewed with [facility] - findings include: Diminished fluid collection contiguous with segment 6 of the liver now measuring 1.8 x 2.1 cm (previously 1.8 x 3.4 cm); persistent moderate right hydronephrosis; stable evidence of sigmoid resection with primary anastomosis, no evidence of bowel obstruction, diverticulosis without diverticulitis; persistent presacral edema and induration anterior pelvis essentially unchanged from previous exam; postoperative pneumoperitoneum persists but slightly diminished; resolution of the previous intra-abdominal abscess which was successfully percutaneously drained. No identified source to explain the persistent pneumoperitoneum EMILIE pending in a.m. Impression: Postoperative day #20; status post exploratory celiotomy, sigmoid colectomy with stapled colocolonic anastomosis for acutely perforated sigmoid diverticulitis. Status slowly improving - no tachycardia, leukocytosis or abnormal differential History of MRSA bacteremia followed by VRE bacteremia followed by fungemia. All central lines have been removed. Likely will require PICC for usp antibiotic therapy post discharge. Patient remains on cefepime, daptomycin, metronidazole. Micafungin DC'd; Diflucan restarted Objective Vital Signs - Last 8 Hours Temp Pulse Resp BP Pulse Ox 06/24/17 11:26 98.1 F 87 16 117/72 93 Intake and Output 06/24/17 06/24/17 06/24/17 07:59 15:59 23:59 Intake Total 120 / 120 220 / 220 Output Total 550 / 550 Balance -430 / -430 220 / 220 Intake: IV Fluids 120 / 120 220 / 220 Maxipime 2,000 MG In Water for inj. (sterile) 20 ML @ 300 mls/ hr IVP Q8H [facility] Rx#:[id number] Cubicin 820 MG In 0.9 % Sodium 100 / 100 Chloride 100 ML @ 200 mls/hr IVPB Q24H [facility] Rx#:[id number] Flagyl Premix 500 MG/100 ML 500 100 / 100 100 / 100 mg In 100 ml @ 100 mls/hr IVPB Q8HR [facility] Rx#:[id number] Output: Urine 550 / 550 Other: Weight 130.317 kg Blood Glucose* 102 110 Patient Weight 06/24/17 23:59 Weight 130.317 kg - Labs 06/23/17 04:18 06/23/17 04:18 Diabetes panel 06/21/17 Range/Units 04:40 Sodium 133 L (136-145) mEq/L Potassium 3.9 (3.5-5.1) mEq/L Chloride 98 (98-107) mEq/L Carbon Dioxide 32 H (23-29) mEq/L BUN 26 H (8-23) mg/dL Creatinine 0.81 (0.60-1.20) mg/dL Glucose 95 (70-105) mg/dL Calcium 8.0 L (8.6-10.3) mg/dL Calcium panel 06/21/17 Range/Units 04:40 Calcium 8.0 L (8.6-10.3) mg/dL Phosphorus 2.7 (2.7-4.5) mg/dL Pituitary panel 06/21/17 Range/Units 04:40 Sodium 133 L (136-145) mEq/L Potassium 3.9 (3.5-5.1) mEq/L Chloride 98 (98-107) mEq/L Carbon Dioxide 32 H (23-29) mEq/L BUN 26 H (8-23) mg/dL Creatinine 0.81 (0.60-1.20) mg/dL Glucose 95 (70-105) mg/dL Calcium 8.0 L (8.6-10.3) mg/dL Adrenal panel 06/21/17 Range/Units 04:40 Sodium 133 L (136-145) mEq/L Potassium 3.9 (3.5-5.1) mEq/L Chloride 98 (98-107) mEq/L Carbon Dioxide 32 H (23-29) mEq/L BUN 26 H (8-23) mg/dL Creatinine 0.81 (0.60-1.20) mg/dL Glucose 95 (70-105) mg/dL Calcium 8.0 L (8.6-10.3) mg/dL - VTE Documentation of Mechanical Device: Intermittent pneumatic compression device Consult Discharge Plan - Plan Referrals: Kole Barksdale MD [Primary Care Provider] - Michele Machuca MD [Non-Partnered Physician] -
[2017-06-24] MEDS: traZODone 50 MG TABLET PO SCH (20:35)
[2017-06-24] MEDS ORDERED: traZODone 50 MG TABLET PO SCH (21:00)
[2017-06-25] MEDS: MetroNIDAZOLE 500 MG/100 ML 500 MG/100 ML BAG IVPB SCH ×4 (01:07→23:34)
[2017-06-25] MEDS: Ondansetron 4 MG/2 ML VIAL IVP PRN ×4 (04:32→19:32)
[2017-06-25] MEDS: Cefepime HCl 2,000 MG in Water for inj. (sterile) 20 ML 20 ML IVP SCH ×2 (04:32→16:23)
[2017-06-25] MEDS: *HR* OxyCODONE/APAP 10/325 TABLET PO PRN ×5 (04:33→21:31)
[2017-06-25 05:22] LABS: Basophils % 0.4 %; Eosinophils # 0.1 K/mcL (0.0-0.6); Eosinophils % 1.2 %; Hematocrit 28.3 % (35.3-44.9); Immature Granulocytes % 1.5 % (0-4); Lymphocytes # 2.6 K/mcL (0.6-4.6); Lymphocytes % 26.1 %; Mean Corpuscular HGB Conc 31.8 g/dL (31.6-35.5); Mean Corpuscular Volume 91.3 fL (83.0-100.0); Mean Platelet Volume 9.8 fL (9.4-12.4); Monocytes % 9.7 %; Neutrophils # 6.1 K/mcL (1.6-8.9); Platelet Count 264 K/mcL (140-400); Red Cell Distribution Width 14.7 % (11.5-14.5); Segmented Neutrophils % 61.1 %
[2017-06-25 05:53] LABS: BUN/Creatinine Ratio 19 (6-26); Blood Urea Nitrogen 20 mg/dL (8-23); Calcium 8.5 mg/dL (8.6-10.3); Carbon Dioxide 27 mEq/L (23-29); Chloride 98 mEq/L (98-107); Glucose 97 mg/dL (70-105); Osmolality,Calculated 281 (280-300); Potassium 4.3 mEq/L (3.5-5.1); Sodium 134 mEq/L (136-145); eGFR For African Americans > 60 (> 60); eGFR For Non-African Americans 53 (> 60)
[2017-06-25 06:06] LABS: Platelet Estimate Normal (Normal)
[2017-06-25] MEDS: *HR* Heparin 5,000 UNIT/ML VIAL SQ SCH ×2 (07:13→18:03)
[2017-06-25] MEDS: Insulin LISPRO 300 UNITS/3 ML VIAL SQ SCH ×4 (09:27→20:53)
--- NOTE | 2017-06-25 10:06 | Electrocardiograph Report ---
[place] [address] Test Date: 2017-06-24 Pat Name: Char Mitchell Department: 115 Room: 3A12 Gender: F Activities Specialist: : [id number] Requested By: Ravi York Order Number: [id number] Reading MD: Juan M Levi DO Measurements Intervals [place] Rate: 86 P: 60 MD: 158 QRS: -48 QRSD: 118 T: 44 QT: 364 QTc: 408 Interpretive Statements SINUS RHYTHM MARKED LEFT AXIS DEVIATION POOR R WAVE PROGRESSION INTRAVENTRICULAR CONDUCTION DELAY Electronically Signed On 06-25-2017 10:04:29 EST by Juan M Levi DO
[2017-06-25] MEDS ORDERED: Lidocaine Viscous Oral Soln 15 ML SOLUTION MM PRN (10:13)
[2017-06-25] MEDS ORDERED: Tetracaine/Benzocaine/Butamben 200MG/SPRAY (100SPY/BOT) MM ONE (10:14)
[2017-06-25] MEDS ORDERED: 0.9 % Sodium Chloride 500 ML IVC ONE (10:14)
[2017-06-25] MEDS: *HR* FentaNYL (PF) 100 MCG/2 ML VIAL IVP PRN ×2 (11:05→11:10)
[2017-06-25] MEDS: *HR* Midazolam HCl 5 MG/5 ML VIAL IVP PRN ×2 (11:05→11:10)
--- NOTE | 2017-06-25 11:11 | Internal Med Progress Note ---
Date of Encounter: 06/25/17 Time of Encounter: 11:11 - Assessment and plan (1) Anemia Current Visit: Yes Status: Chronic Assessment and plan: monitor hb, transfusion for Hb <7 Qualifiers: Anemia type: unspecified type Qualified Code(s): D64.9 - Anemia, unspecified (2) Abdominal abscess Current Visit: Yes Status: Resolved Assessment and plan: CT 06/16 revealed enlarging fluid collections suspicious for organizing abscess IR performed percutaneous drainage of abscess 06/17 Cultures grew candidia MRSA, Enterococcus faecium-VRE Continue current antibiotics CT scan today shows near resolution, management per surgery (3) MRSA bacteremia Current Visit: Yes Status: Resolved Assessment and plan: Blood cultures positive for MRSA bacteremia, with suspected source is PICC line vs central venous line TTE shows ejection fraction of 65-70% with mild tricuspid regurgitation, no vegetations noted EMILIE done 06/25 negative for vegetations No MRSA in blood cultures since 06/10 (4) Perforated diverticulum Current Visit: Yes Status: Acute Assessment and plan: Sepsis secondary to VRE, MRSA and yeast bacteremia possibly due to perforated diverticulum Afebrile now. Improving D/C TPN 06/23/17 POD #21 s/p sigmoid colectomy with stapled colocolonic anastomosis Infectious disease is following (5) UTI (urinary tract infection) Current Visit: Yes Status: Acute Assessment and plan: fungal, continue current meds Qualifiers: Urinary tract infection type: acute cystitis Hematuria presence: without hematuria Qualified Code(s): N30.00 - Acute cystitis without hematuria (6) VRE bacteremia Current Visit: Yes Status: Acute Assessment and plan: as in sepsis (7) HTN (hypertension) Current Visit: Yes Status: Chronic Assessment and plan: BP well controlled at this visit recently Hold medications Qualifiers: Hypertension type: essential hypertension Qualified Code(s): I10 - Essential (primary) hypertension (8) Hypothyroidism Current Visit: Yes Status: Chronic Assessment and plan: Continue po synthroid, patient is tolerating po now Qualifiers: Hypothyroidism type: acquired Qualified Code(s): E03.9 - Hypothyroidism, unspecified (9) Morbid obesity with BMI of 45.0-49.9, adult Current Visit: Yes Status: Chronic Assessment and plan: lifestyle modification (10) Sepsis Current Visit: Yes Status: Resolved Assessment and plan: resolved, afebrile since 06/21/17 as in diverticulitis Qualifiers: Sepsis type: methicillin resistant Staphylococcus aureus Qualified Code(s) : A41.02 - Sepsis due to Methicillin resistant Staphylococcus aureus (11) Acute respiratory failure with hypoxia Current Visit: Yes Status: Resolved Assessment and plan: resolved, comfortable on room air (12) Depression Current Visit: Yes Status: Acute Assessment and plan: trazodone HS , continue same NO suicidal ideations Qualifiers: Depression Type: unspecified Qualified Code(s): F32.9 - Major depressive disorder, single episode, unspecified - Subjective Interval history: Seen and examined with partner at bedside Hospital day 27 Multiple complications Initial admission was for acute perforated diverticulitis, complicated by MRSA bacteremia, VRE bacteremia and fungemia Started on cipro/flagyl 05/29, admitting blood cultures 05/30 were negative X 2 bottles Patient underwent exploratory celiotomy with sigmoid colectomy on 06/04/17. She had a PICC line and subclavian CVC placed and confirmed by chest x-ray on . patient became febrile 06/09, with worsening leukocytosis and antibiotics were broadened to vancomycin and cefepime and Flagyl was continued. She developed fever of 102.1 on 06/11/17 and primary team started patient on Micafungin 100mg daily. CT abdomen/pelvis same day showed increasing fluid collections along abdominal incision, and multiloculated fluid loculations throughout the abdomen and pelvis increased in size and organizing, decreased pneumoperitoneum 06/14/18 micafungin d/c and patient started on diflucan CT notes increased size of abscess to drain 10.7 cm within the abdomen. Worsening right hydronephrosis. An worsening seroma below incision measuring 4.1 x 5.6 cm. s/p percutaneous drainage of abdominal abscess by IR 06/17/2017: Cultures have grown MRSA, VRE, pansensitive Jayna albicans Repeat blood cultures: 06/18/17 peripheral blood cultures grew yeast (2/2 cultures ) and VRE (1/2 cultures) 06/19/17 peripheral cultures growing yeast and VRE -drawn from CVC 06/19/17 central venous catheter tip culture preliminary negative 06/20/17 blood cultures -source were peripheral, CVC and PICC line: GNR, C. galbrata 06/21/17 blood culture . C. galbrata from CVC 06/21/17: Peripehral acess . 1 bottle prelim negative 06/23/17: peripheral blood culture negative so far Repeat abdomen CT done 06/24 showed improvement Drain removed 06/24/17 PICC line was discontinued 06/24/17 EMILIE done today 06/25 shows no vegetations Seen at bedside with spouse She reports a better and improved mood and has no new complains Plan for today- Last fever done 06/21/17, afebrile since then Continue Current antibiotics- Daptomycin, Cefepime, Flagyl, Fluconazole ( switched today). Ophthal eval to r/o endophthalitis-Dr. Maravilla was called and he will see the patient this afternoon Blood pressure is improving-continue to hold blood pressure medications Monitor HB, transfusion for HB <7 - Constitutional Vitals: Temp Pulse Resp BP Pulse Ox 98.8 F 93 18 105/76 91 06/25/17 10:45 06/25/17 10:45 06/25/17 10:45 06/25/17 10:45 06/25/17 10:45 General appearance: Present: cooperative, A&O X 3, pleasant, no acute distress, obese, answers questions appropriately - Head Head exam: Present: atraumatic, normocephalic - Eye Eye exam: Present: PERRL, conjuntiva pink, sclera anicteric Pupils: Present: PERRL - Neck Neck exam general surgery: Present: supple, trachea midline. Absent: lymphadenopathy - Respiratory Respiratory exam: Present: CTAB. Absent: accessory muscle use, rales, rhonchi, wheezes - GI/Abdominal Additional comments: wound dressing clean and dry-drain has been removed Jennifer intact, portion of lower abdomen without jeninfer with intact wound, no drainage - Extremities Exam Extremities exam: Present: warm, radial pulses palpable and symmetrical. Absent : calf tenderness, cyanotic, pedal edema - Neurological Exam Neurological exam: Present: alert, CN II-XII intact, oriented X3, no focal deficits. Absent: pronater drift, facial droop, speech deficit - Skin Skin exam: Present: dry, intact Internal Medicine: Result - Labs CBC & Chem 7: 06/25/17 04:05 06/25/17 04:05 Labs: Short CBC 06/25/17 Range/Units 04:05 WBC 9.9 (4.3-11.1) K/mcL Hgb 9.0 L (11.5-15.4) g/dL Hct 28.3 L (35.3-44.9) % Plt Count 264 (140-400) K/mcL Neutrophils # 6.1 (1.6-8.9) K/mcL BMP 06/25/17 04:05 Sodium 134 L Potassium 4.3 Chloride 98 Carbon Dioxide 27 BUN 20 Creatinine 1.05 Glucose 97 Calcium 8.5 L - ABG Interpretation ABG results: ABG ABG pH 7.43 pH Units (7.32-7.45) 06/08/17 04:24 ABG pCO2 35 mmHg (35-45) 06/08/17 04:24 ABG pO2 72 mmHg (85-104) L 06/08/17 04:24 ABG O2 Saturation 95 % (95-98) 06/08/17 04:24 PT/INR, D-dimer PT 16.4 Seconds (9.4-12.1) H 06/17/17 06:18 - Impressions Impressions Abdomen/Pelvis CT 06/24/17 09:30 IMPRESSION: 1. Complete resolution of a previously demonstrated anterior intra-abdominal abscess following drain placement. The drain can likely be removed. 2. There are a few scattered small pockets of intra-abdominal fluid, all of which are slightly smaller from the previous examination. None of these are large enough for percutaneous drainage and continued CT follow-up is suggested. 3. Decreasing, predominantly air-filled, air-fluid collection within the soft tissues beneath the laparotomy site. 4. Unchanged moderate right hydronephrosis, with double J ureteral stent in place. D/ / 06/24/2017 11:34:54 Leland Santiago MD / [facility] Interpreting Provider: Leland Santiago MD - VTE Documentation of Mechanical Device: Intermittent pneumatic compression device Consult Discharge Plan - Plan Referrals: Kole Barksdale MD [Primary Care Provider] - Michele Machuca MD [Non-Partnered Physician] -
--- NOTE | 2017-06-25 11:30 | Infectious Disease Progress No ---
Date of Encounter: 06/25/17 Time of Encounter: 11:28 - Assessment and Plan (1) Sepsis Current Visit: Yes Status: Resolved Presented with 3 SIRS criteria. Not tachycardic, afebrile, leukocytosis resolved. Secondary to complicated diverticulitis, and MRSA bacteremia, hank glabrata bacteremia, VRE bacteremia, UTI 2nd to hank albicans and Hank glabrata, Qualifiers: Sepsis type: methicillin resistant Staphylococcus aureus Qualified Code(s) : A41.02 - Sepsis due to Methicillin resistant Staphylococcus aureus (2) Perforated diverticulum Current Visit: Yes Status: Acute Patient presented with acute onset of sharp abdominal pain. Has history of sigmoid diverticulitis. CT abdomen on 05/29 showed pneumoperitoneum with diverticulitis of sigmoid colon. Patient underwent exploratory celiotomy with sigmoid colectomy with colocolonic anastomosis on 06/04/17. She had a PICC line and subclavian CVC placed and confirmed by chest x-ray on . Patient was also started on Cipro and Flagyl on 05/29. Blood Cultures on are negative. Patient became febrie 06/09, with worsening leukocytosis and antibiotics were broadened to vancomycin and cefepime and Flagyl Fever of 102.1 on 06/11/17 and primary team started patient on Micafungin 100mg daily. CT abdomen/pelvis 06/11 increasing fluid collections along abdominal incision, and multiloculated fluid loculations throughout the abdomen and pelvis increased in size and organizing, decreased pneumoperitoneum 06/14/18 micafungin d/c and patient started on diflucan which was switched back to micafungin as patient grew hank glabrata in urine culture/blood. CT notes increased size of abscess to drain 10.7 cm within the abdomen. Worsening right hydronephrosis. And worsening seroma below incision measuring 4.1 x 5.6 cm. Status post percutaneous drainage of abdominal abscess by IR 06/17/2017: Cultures have grown MRSA, VRE, pansensitive Hank albicans CT 06/19/2017 shows improvement of previous abdominal abscess. Continued small pockets of fluid collections throughout the abdomen and pelvis. Persistent pneumoperitoneum persistent moderate right hydronephrosis and hydroureter in the presence of nephroureteral stent and slight interval decrease in size of fluid collection within the subcutaneous fat of the midline anterior abdominal wall. She had recurrent fever over weekend of jun 19-08/2017 and cultures were redrawn as below: Repeat blood cultures: 06/18/17 peripheral blood cultures grew hank glabrata (2 /2 cultures) and VRE (1/2 cultures) 06/19/17 peripheral cultures growing hank glabrata / cvc blood cultures VRE and hank glabrata 06/19/17 central venous catheter tip culture growing yeast 06/20/17 peripheral blood culture growing Hank glabrata 06/20/17 PICC blood culture hank growth Miller and gram- negative rip (proteus sepcies) 06/21/17 peripheral blood culture negative for growth 06/21/17 R. PICC blood culture hank glabrata 06/23/[address] 06/24/17 shows complete resolution of intra-abdominal abscess following drain placement, decreased size of scattered fluid pockets, decreased air-fluid collection within the soft tissues underneath the incision. New G- bacteremia as noted above, likely contamination as it grew on 06/20 culture but not 06/21 or 06/19. Afebrile overnight. continue diflucan, cefepime 2000mg Q12h and flagyl 500mg Q8h Antibiotic duration depends on clinical picture. (3) Candidemia Current Visit: Yes Status: Acute as stated above patient has candidia glabrata and parapsilosis in blood. continue diflucan will need ophtomologist appointment to evualuate for endophthalmitis (4) VRE bacteremia Current Visit: Yes Status: Acute 06/19/17 CVC blood culture + for VRE Patient was switched to daptomycin over the weekend. CK is 23 repeat blood cultures collected 06/21/2017 are preliminary negative for VRE. continue daptomycin. antibiotic duration depends of clinical picture. EMILIE today (5) MRSA bacteremia Current Visit: Yes Status: Resolved Complicated MRSA bacteremia patient had left knee prosthetic joint Blood cultures from 06/08 from subclavian CVC and PICC line are positive for MRSA. Patient started on vancomycin and cefepime on 06/08 Since starting vancomycin patient's white blood cell count has improved from 15.1-10.9. Last trough of vancomycin was 18.3. Patient had repeat blood cultures drawn CvC, PICC and peripheral 06/10/17 all negative x6. PICC line culture of tip negative TTE: LVEF 65-70% mild tricuspid regurgiations, no vavular vegetations are noted vanc trough 17 kidney function stable Repeat peripheral blood cultures 06/18/17 and 06/19/17 are negative for MRSA. Subclavian CVC has been removed. PICC has been placed in the right upper extremity: Repeat blood cultures ordered and preliminary results are negative for MRSA. Plan: continue daptomycin. Antibiotic duration will be determined by results of EMILIE. (6) UTI (urinary tract infection) Current Visit: Yes Status: Acute 06/13 urine culture Hank albicans and glabrata harry d/c continue fluconazole. Qualifiers: Urinary tract infection type: acute cystitis Hematuria presence: without hematuria Qualified Code(s): N30.00 - Acute cystitis without hematuria (7) Hypoxia Current Visit: Yes Status: Acute stable patient requiring O2 supplementation since being admitted O2 requirement 3L on lung exam clear anteriorly CXR 06/10/17 negative for pleural effusion, consolidation. Free air under the right hemidiaphragm noted again unchanged. sob unchanged from yesterday plan as per primary (8) Hydronephrosis Current Visit: Yes Status: Acute Discovered on CT abdomen 06/02 which showed right hydroureter with right ureteritis and bilateral pyelitis Underwent on 06/04/17 right ureteral stent placement and left ureteral catheter placement by urology. Patient has had 2 urine cultures which have been negative for growth. Urinalysis does not indicate any signs of infection. Patient has a Harry catheter out pitting light red urine. Likely secondary to urologic procedure. Patient is on broad-spectrum antibiotics, vancomycin, cefepime which will cover urinary tract infection. Repeat CT abdomen and pelvis on 06/07 showed improvement of right hydronephrosis and stable stent placement. Repeat CT at 06/16/2017 shows worsening right hydronephrosis. Urology reports no additional intervention needed at this point. Qualifiers: Hydronephrosis type: other Qualified Code(s): N13.39 - Other hydronephrosis (9) Hypothyroidism Current Visit: Yes Status: Chronic As per primary. Qualifiers: Hypothyroidism type: acquired Qualified Code(s): E03.9 - Hypothyroidism, unspecified (10) HTN (hypertension) Current Visit: Yes Status: Chronic controlled. Qualifiers: Hypertension type: essential hypertension Qualified Code(s): I10 - Essential (primary) hypertension (11) DVT prophylaxis Current Visit: Yes Status: Acute heparin SQ - Subjective Interval history: Abdominal pain and sob continues to improve. She is pleasantly sitting in bed. She has been afebrile overnight. TTE planned for today. MARIUSZ drain out. She has no complaints. She is tolerating her diet. Infect Dis PN-Objective Data - Labs CBC & Chem 7: 06/25/17 04:05 06/25/17 04:05 Labs: Laboratory Results - last 24 hr 06/24/17 06/25/17 06/25/17 20:32 04:05 04:05 WBC 9.9 RBC 3.10 L Hgb 9.0 L Hct 28.3 L MCV 91.3 MCH 29.0 MCHC 31.8 RDW 14.7 H Plt Count 264 MPV 9.8 Immature Gran % 1.5 Seg Neutrophils % 61.1 Lymphocytes % 26.1 Monocytes % 9.7 Eosinophils % 1.2 Basophils % 0.4 Neutrophils # 6.1 Lymphocytes # 2.6 Monocytes # 1.0 Eosinophils # 0.1 Basophils # 0.0 Platelet Estimate Normal Sodium 134 L Potassium 4.3 Chloride 98 Carbon Dioxide 27 BUN 20 Creatinine 1.05 Est GFR ( Amer) > 60 Est GFR (Non-Af Amer) 53 L BUN/Creatinine Ratio 19 Glucose 97 POC Glucose 128 H Calculated Osmolality 281 Calcium 8.5 L 06/25/17 05:55 WBC RBC Hgb Hct MCV MCH MCHC RDW Plt Count MPV Immature Gran % Seg Neutrophils % Lymphocytes % Monocytes % Eosinophils % Basophils % Neutrophils # Lymphocytes # Monocytes # Eosinophils # Basophils # Platelet Estimate Sodium Potassium Chloride Carbon Dioxide BUN Creatinine Est GFR ( Amer) Est GFR (Non-Af Amer) BUN/Creatinine Ratio Glucose POC Glucose 101 H Calculated Osmolality Calcium Cultures: Cultures 06/20/17 10:15 Blood Culture - Preliminary Peripheral Central Cath, Picc Gram Negative Rip Hank glabrata 06/23/17 10:40 Blood Culture - Preliminary Peripheral Venipuncture No growth. 06/19/17 11:35 Catheter Tip Culture - Final Intravenous or Arterial Cath Hank glabrata 06/21/17 04:40 Blood Culture - Final Central Venous Catheter Hank glabrata 06/19/17 09:12 Blood Culture - Final Central Venous Catheter Vancomycin Resistant Enterococcus faecium Hank glabrata Hank parapsilosis 06/20/17 10:06 Blood Culture - Final Peripheral Venipuncture Hank glabrata 06/18/17 08:41 Blood Culture - Final Peripheral Venipuncture Hank glabrata 06/19/17 00:26 Blood Culture - Final Peripheral Venipuncture Hank glabrata 06/19/17 00:20 Blood Culture - Final Peripheral Venipuncture Hank glabrata 06/18/17 10:44 Blood Culture - Final Peripheral Venipuncture Vancomycin Resistant Enterococcus faecium Hank glabrata 06/13/17 04:38 Urine Culture - Final Urine,Harry Port Hank glabrata Hank albicans 06/21/17 05:49 Blood Culture - Preliminary Peripheral Venipuncture No growth. 06/17/17 11:20 Body Fluid Culture - Final Other-Specify in Comments Hank albicans Methicillin Resistant S.aureus Enterococcus faecium 06/12/17 20:08 Blood Culture - Final Peripheral Venipuncture No growth. 06/10/17 05:45 Blood Culture - Final Peripheral Central Cath, Picc No growth. 06/10/17 05:41 Blood Culture - Final Peripheral Venipuncture No growth. 06/10/17 11:35 Blood Culture - Final Peripheral Central Cath, Picc No growth. 06/10/17 05:45 Blood Culture - Final Central Venous Catheter No growth. 06/10/17 05:46 Blood Culture - Final Peripheral Venipuncture No growth. 06/10/17 11:35 Blood Culture - Final Central Venous Catheter No growth. 06/10/17 16:40 Catheter Tip Culture - Final Intravenous or Arterial Cath No growth. 06/08/17 06:33 Blood Culture - Final Peripheral Central Cath, Picc Methicillin Resistant S.aureus 06/08/17 06:33 Blood Culture - Final Central Venous Catheter Methicillin Resistant S.aureus 06/08/17 04:20 Urine Culture - Final Urine,Clean Catch No significant growth. 06/03/17 09:25 Urine Culture - Final Urine,Harry Port No growth. 05/30/17 09:56 Blood Culture - Final Peripheral Venipuncture No growth. 05/30/17 10:10 Blood Culture - Final Peripheral Venipuncture No growth. Serology 06/21/17 06/20/17 06/19/17 Range/Units 04:40 10:15 16:10 Ur Specimen Adequacy Urine Color Yellow (Yellow) Urine Clarity Clear (Clear) Urine pH 6.5 (5.0-8.0) pH Units Ur Specific Buckner 1.021 (1.010-1.025) Urine Protein 30 H (Neg-Trace) mg/dL Urine Glucose (UA) Normal (Normal) mg/dL Urine Ketones Negative (Negative) mg/dL Urine Blood Large H (Negative) Urine Nitrite Negative (Negative) Urine Bilirubin Negative (Negative) Urine Urobilinogen Normal (Normal) mg/dL Ur Leukocyte Esterase Negative (Negative) Urine Microscopic RBC 0-3 (0-3) per hpf Urine Microscopic WBC 0-3 (0-3) per hpf Ur Squamous Epith Cells Many H (None-Few) per lpf Urine Bacteria None Seen (None-Few) per hpf Hyaline Casts None Seen (None-Few) per lpf Ur Culture Indicated? NO (NO) A. baumannii (PCR) Not Detected Not Detected (Not Detect) Chlamy pneumoniae PCR (Not Detect) Adenovirus (PCR) (Not Detect) B. pertussis DNA (PCR) (Not Detect) B.parapertussis DNA PCR (Not Detect) Hank albicans (PCR) Not Detected Not Detected (Not Detect) C. glabrata (PCR) DETECTED A DETECTED A (Not Detect) C. krusei (PCR) Not Detected Not Detected (Not Detect) C. parapsilosis (PCR) Not Detected Not Detected (Not Detect) C. tropicalis (PCR) Not Detected Not Detected (Not Detect) Coronavirus OC43 (PCR) (Not Detect) Coronavirus HKU1 (PCR) (Not Detect) Coronavirus 229E (PCR) (Not Detect) Coronavirus NL63 (PCR) (Not Detect) Enterobacteriac sp PCR Not Detected DETECTED A (Not Detect) E. cloacae complex PCR Not Detected Not Detected (Not Detect) Enterococcus sp PCR Not Detected Not Detected (Not Detect) E. coli (PCR) Not Detected Not Detected (Not Detect) H. influenzae (PCR) Not Detected Not Detected (Not Detect) Human Metapneumovir PCR (Not Detect) Influenza A (H1) PCR (Not Detect) Influ A (H1N1/09) PCR (Not Detect) Influenza A (H3) PCR (Not Detect) Influenza A Untype (PCR) (Not Detect) Influenza Type B (PCR) (Not Detect) Klebsiella oxytoca PCR Not Detected Not Detected (Not Detect) Klebsiella pneumoniae Not Detected Not Detected (Not Detect) List. monocytogenes PCR Not Detected Not Detected (Not Detect) M.pneumoniae DNA (PCR) (Not Detect) N. meningitidis (PCR) Not Detected Not Detected (Not Detect) Parainfluenza 1 (PCR) (Not Detect) Parainfluenza 2 (PCR) (Not Detect) Parainfluenza 3 (PCR) (Not Detect) Parainfluenza 4 (PCR) (Not Detect) Proteus species (PCR) Not Detected DETECTED A (Not Detect) RSV (PCR) (Not Detect) Entero/Rhino (PCR) (Not Detect) Serratia marcescens PCR Not Detected Not Detected (Not Detect) Staphylococcus sp PCR Not Detected Not Detected (Not Detect) Staph aureus (PCR) Not Detected Not Detected (Not Detect) mecA-Methicil Res Gene Not Detected Not Detected (Not Detect) Streptococcus sp PCR Not Detected Not Detected (Not Detect) Group A Strep DNA Not Detected Not Detected (Not Detect) Group B Strep (PCR) Not Detected Not Detected (Not Detect) Strep pneumoniae (PCR) Not Detected Not Detected (Not Detect) P. aeruginosa (PCR) Not Detected Not Detected (Not Detect) Bryant/B-Vanco Res Genes Not Detected Not Detected (Not Detect) KPC (blaKPC) Detect PCR Not Detected Not Detected (Not Detect) 06/19/17 06/19/17 06/19/17 Range/Units 09:12 09:12 09:12 Ur Specimen Adequacy Urine Color (Yellow) Urine Clarity (Clear) Urine pH (5.0-8.0) pH Units Ur Specific Buckner (1.010-1.025) Urine Protein (Neg-Trace) mg/dL Urine Glucose (UA) (Normal) mg/dL Urine Ketones (Negative) mg/dL Urine Blood (Negative) Urine Nitrite (Negative) Urine Bilirubin (Negative) Urine Urobilinogen (Normal) mg/dL Ur Leukocyte Esterase (Negative) Urine Microscopic RBC (0-3) per hpf Urine Microscopic WBC (0-3) per hpf Ur Squamous Epith Cells (None-Few) per lpf Urine Bacteria (None-Few) per hpf Hyaline Casts (None-Few) per lpf Ur Culture Indicated? (NO) A. baumannii (PCR) Not Detected Not Detected (Not Detect) Chlamy pneumoniae PCR Not Detected (Not Detect) Adenovirus (PCR) Not Detected (Not Detect) B. pertussis DNA (PCR) Not Detected (Not Detect) B.parapertussis DNA PCR Not Detected (Not Detect) Hank albicans (PCR) Not Detected Not Detected (Not Detect) C. glabrata (PCR) DETECTED A DETECTED A (Not Detect) C. krusei (PCR) Not Detected Not Detected (Not Detect) C. parapsilosis (PCR) Not Detected DETECTED A (Not Detect) C. tropicalis (PCR) Not Detected Not Detected (Not Detect) Coronavirus OC43 (PCR) Not Detected (Not Detect) Coronavirus HKU1 (PCR) Not Detected (Not Detect) Coronavirus 229E (PCR) Not Detected (Not Detect) Coronavirus NL63 (PCR) Not Detected (Not Detect) Enterobacteriac sp PCR Not Detected Not Detected (Not Detect) E. cloacae complex PCR Not Detected Not Detected (Not Detect) Enterococcus sp PCR Not Detected DETECTED A (Not Detect) E. coli (PCR) Not Detected Not Detected (Not Detect) H. influenzae (PCR) Not Detected Not Detected (Not Detect) Human Metapneumovir PCR Not Detected (Not Detect) Influenza A (H1) PCR Not Detected (Not Detect) Influ A (H1N1/09) PCR Not Detected (Not Detect) Influenza A (H3) PCR Not Detected (Not Detect) Influenza A Untype (PCR) Not Detected (Not Detect) Influenza Type B (PCR) Not Detected (Not Detect) Klebsiella oxytoca PCR Not Detected Not Detected (Not Detect) Klebsiella pneumoniae Not Detected Not Detected (Not Detect) List. monocytogenes PCR Not Detected Not Detected (Not Detect) M.pneumoniae DNA (PCR) Not Detected (Not Detect) N. meningitidis (PCR) Not Detected Not Detected (Not Detect) Parainfluenza 1 (PCR) Not Detected (Not Detect) Parainfluenza 2 (PCR) Not Detected (Not Detect) Parainfluenza 3 (PCR) Not Detected (Not Detect) Parainfluenza 4 (PCR) Not Detected (Not Detect) Proteus species (PCR) Not Detected Not Detected (Not Detect) RSV (PCR) Not Detected (Not Detect) Entero/Rhino (PCR) Not Detected (Not Detect) Serratia marcescens PCR Not Detected Not Detected (Not Detect) Staphylococcus sp PCR Not Detected Not Detected (Not Detect) Staph aureus (PCR) Not Detected Not Detected (Not Detect) mecA-Methicil Res Gene N/A N/A (Not Detect) Streptococcus sp PCR Not Detected Not Detected (Not Detect) Group A Strep DNA Not Detected Not Detected (Not Detect) Group B Strep (PCR) Not Detected Not Detected (Not Detect) Strep pneumoniae (PCR) Not Detected Not Detected (Not Detect) P. aeruginosa (PCR) Not Detected Not Detected (Not Detect) Bryant/B-Vanco Res Genes N/A DETECTED A (Not Detect) KPC (blaKPC) Detect PCR N/A N/A (Not Detect) 06/19/17 06/18/17 06/18/17 Range/Units 00:20 10:44 08:41 Ur Specimen Adequacy Urine Color (Yellow) Urine Clarity (Clear) Urine pH (5.0-8.0) pH Units Ur Specific Buckner (1.010-1.025) Urine Protein (Neg-Trace) mg/dL Urine Glucose (UA) (Normal) mg/dL Urine Ketones (Negative) mg/dL Urine Blood (Negative) Urine Nitrite (Negative) Urine Bilirubin (Negative) Urine Urobilinogen (Normal) mg/dL Ur Leukocyte Esterase (Negative) Urine Microscopic RBC (0-3) per hpf Urine Microscopic WBC (0-3) per hpf Ur Squamous Epith Cells (None-Few) per lpf Urine Bacteria (None-Few) per hpf Hyaline Casts (None-Few) per lpf Ur Culture Indicated? (NO) A. baumannii (PCR) Not Detected Not Detected Not Detected (Not Detect) Chlamy pneumoniae PCR (Not Detect) Adenovirus (PCR) (Not Detect) B. pertussis DNA (PCR) (Not Detect) B.parapertussis DNA PCR (Not Detect) Hank albicans (PCR) Not Detected Not Detected Not Detected (Not Detect) C. glabrata (PCR) DETECTED A Not Detected DETECTED A (Not Detect ) C. krusei (PCR) Not Detected Not Detected Not Detected (Not Detect) C. parapsilosis (PCR) Not Detected Not Detected Not Detected (Not Detect) C. tropicalis (PCR) Not Detected Not Detected Not Detected (Not Detect) Coronavirus OC43 (PCR) (Not Detect) Coronavirus HKU1 (PCR) (Not Detect) Coronavirus 229E (PCR) (Not Detect) Coronavirus NL63 (PCR) (Not Detect) Enterobacteriac sp PCR Not Detected Not Detected Not Detected (Not Detect) E. cloacae complex PCR Not Detected Not Detected Not Detected (Not Detect) Enterococcus sp PCR Not Detected DETECTED A Not Detected (Not Detect) E. coli (PCR) Not Detected Not Detected Not Detected (Not Detect) H. influenzae (PCR) Not Detected Not Detected Not Detected (Not Detect) Human Metapneumovir PCR (Not Detect) Influenza A (H1) PCR (Not Detect) Influ A (H1N1/09) PCR (Not Detect) Influenza A (H3) PCR (Not Detect) Influenza A Untype (PCR) (Not Detect) Influenza Type B (PCR) (Not Detect) Klebsiella oxytoca PCR Not Detected Not Detected Not Detected (Not Detect) Klebsiella pneumoniae Not Detected Not Detected Not Detected (Not Detect) List. monocytogenes PCR Not Detected Not Detected Not Detected (Not Detect) M.pneumoniae DNA (PCR) (Not Detect) N. meningitidis (PCR) Not Detected Not Detected Not Detected (Not Detect) Parainfluenza 1 (PCR) (Not Detect) Parainfluenza 2 (PCR) (Not Detect) Parainfluenza 3 (PCR) (Not Detect) Parainfluenza 4 (PCR) (Not Detect) Proteus species (PCR) Not Detected Not Detected Not Detected (Not Detect) RSV (PCR) (Not Detect) Entero/Rhino (PCR) (Not Detect) Serratia marcescens PCR Not Detected Not Detected Not Detected (Not Detect) Staphylococcus sp PCR Not Detected Not Detected Not Detected (Not Detect) Staph aureus (PCR) Not Detected Not Detected Not Detected (Not Detect) mecA-Methicil Res Gene Not Detected N/A N/A (Not Detect) Streptococcus sp PCR Not Detected Not Detected Not Detected (Not Detect) Group A Strep DNA Not Detected Not Detected Not Detected (Not Detect) Group B Strep (PCR) Not Detected Not Detected Not Detected (Not Detect) Strep pneumoniae (PCR) Not Detected Not Detected Not Detected (Not Detect) P. aeruginosa (PCR) Not Detected Not Detected Not Detected (Not Detect) Bryant/B-Vanco Res Genes Not Detected DETECTED A N/A (Not Detect) KPC (blaKPC) Detect PCR Not Detected N/A N/A (Not Detect) 06/08/17 06/08/17 Range/Units 06:33 04:20 Ur Specimen Adequacy Urine Color Dark Yellow (Yellow) Urine Clarity Clear (Clear) Urine pH 6.0 (5.0-8.0) pH Units Ur Specific Buckner > 1.030 H (1.010-1.025) Urine Protein 100 H (Neg-Trace) mg/dL Urine Glucose (UA) 100 H (Normal) mg/dL Urine Ketones Negative (Negative) mg/dL Urine Blood Large H (Negative) Urine Nitrite Negative (Negative) Urine Bilirubin Negative (Negative) Urine Urobilinogen Normal (Normal) mg/dL Ur Leukocyte Esterase Small H (Negative) Urine Microscopic RBC (0-3) per hpf Urine Microscopic WBC (0-3) per hpf Ur Squamous Epith Cells (None-Few) per lpf Urine Bacteria (None-Few) per hpf Hyaline Casts (None-Few) per lpf Ur Culture Indicated? YES A (NO) A. baumannii (PCR) Not Detected (Not Detect) Chlamy pneumoniae PCR (Not Detect) Adenovirus (PCR) (Not Detect) B. pertussis DNA (PCR) (Not Detect) B.parapertussis DNA PCR (Not Detect) Hank albicans (PCR) Not Detected (Not Detect) C. glabrata (PCR) Not Detected (Not Detect) C. krusei (PCR) Not Detected (Not Detect) C. parapsilosis (PCR) Not Detected (Not Detect) C. tropicalis (PCR) Not Detected (Not Detect) Coronavirus OC43 (PCR) (Not Detect) Coronavirus HKU1 (PCR) (Not Detect) Coronavirus 229E (PCR) (Not Detect) Coronavirus NL63 (PCR) (Not Detect) Enterobacteriac sp PCR Not Detected (Not Detect) E. cloacae complex PCR Not Detected (Not Detect) Enterococcus sp PCR Not Detected (Not Detect) E. coli (PCR) Not Detected (Not Detect) H. influenzae (PCR) Not Detected (Not Detect) Human Metapneumovir PCR (Not Detect) Influenza A (H1) PCR (Not Detect) Influ A (H1N1/09) PCR (Not Detect) Influenza A (H3) PCR (Not Detect) Influenza A Untype (PCR) (Not Detect) Influenza Type B (PCR) (Not Detect) Klebsiella oxytoca PCR Not Detected (Not Detect) Klebsiella pneumoniae Not Detected (Not Detect) List. monocytogenes PCR Not Detected (Not Detect) M.pneumoniae DNA (PCR) (Not Detect) N. meningitidis (PCR) Not Detected (Not Detect) Parainfluenza 1 (PCR) (Not Detect) Parainfluenza 2 (PCR) (Not Detect) Parainfluenza 3 (PCR) (Not Detect) Parainfluenza 4 (PCR) (Not Detect) Proteus species (PCR) Not Detected (Not Detect) RSV (PCR) (Not Detect) Entero/Rhino (PCR) (Not Detect) Serratia marcescens PCR Not Detected (Not Detect) Staphylococcus sp PCR DETECTED A (Not Detect) Staph aureus (PCR) DETECTED A (Not Detect) mecA-Methicil Res Gene DETECTED A (Not Detect) Streptococcus sp PCR Not Detected (Not Detect) Group A Strep DNA Not Detected (Not Detect) Group B Strep (PCR) Not Detected (Not Detect) Strep pneumoniae (PCR) Not Detected (Not Detect) P. aeruginosa (PCR) Not Detected (Not Detect) Bryant/B-Vanco Res Genes Not Detected (Not Detect) KPC (blaKPC) Detect PCR Not Detected (Not Detect) - Impressions Impressions Abdomen/Pelvis CT 06/24/17 09:30 IMPRESSION: 1. Complete resolution of a previously demonstrated anterior intra-abdominal abscess following drain placement. The drain can likely be removed. 2. There are a few scattered small pockets of intra-abdominal fluid, all of which are slightly smaller from the previous examination. None of these are large enough for percutaneous drainage and continued CT follow-up is suggested. 3. Decreasing, predominantly air-filled, air-fluid collection within the soft tissues beneath the laparotomy site. 4. Unchanged moderate right hydronephrosis, with double J ureteral stent in place. D/ / 06/24/2017 11:34:54 Leland Santiago MD / abdirahman Interpreting Provider: Leland Santiago MD Exam - Constitutional Vitals: Temp Pulse Resp BP Pulse Ox 98.8 F 93 18 105/76 91 06/25/17 10:45 06/25/17 10:45 06/25/17 10:45 06/25/17 10:45 06/25/17 10:45 - Additional findings Additional findings: General: Pleasant without distress.smiling HEENT: Absent thrush. Heart: Regular rate and rhythm with no murmur Lungs: Clear to auscultation bilaterally Abdomen: Soft, nontender, nondistended, positive bowel sounds. Surgical incision intact, enedina intact , MARIUSZ removed Skin: warm and dry Extremities: Absent pedal edema, Neuro: Alert and oriented 3 Vascular: Pedal and radial pulses 2 out of 4 - VTE Documentation of Mechanical Device: Intermittent pneumatic compression device Consult Discharge Plan - Plan Referrals: Kole Barksdale MD [Primary Care Provider] - Michele Machuca MD [Non-Partnered Physician] - - Attending Attestation I examined this patient and my medical decision-making was reviewed with the Resident Physician. I agree with the documented findings, disposition and treatment plan as described except to the extent set forth below. Patient doing great clinically. EMILIE negative for endocarditis. Patient afebrile 5 days. Had long discussion with Dr. machuca was concerned for the pneumoperitoneum that has not resolved. At this point we will continue current antibiotic regimen including daptomycin, fluconazole, cefepime and Flagyl. Duration of treatment depends on the clinical picture. Patient will need a CT abdomen pelvis in 1-2 weeks. Patient follow-up with me in 2 weeks in clinic. While on current antibiotics patient will need weekly CBC, CMP, CK level. Patient will need a PICC line prior to discharge. Repeat blood cultures 2 today. Patient also needs ophthalmology to evaluate please consult ophthalmology
[2017-06-25] MEDS: DAPTOMYCIN IVPB SCH (15:13)
[2017-06-25] MEDS: SODIUM CHLORIDE 0.9% IVPB SCH (15:13)
[2017-06-25] MEDS: Fluconazole 400 MG/200 ML 400 MG/200 ML BAG IVPB SCH (18:04)
--- NOTE | 2017-06-25 20:12 | Internal Medicine Consult Note ---
Date of Encounter: 06/25/17 Time of Encounter: 20:07 Internal Medicine - CN: HPI - Data of Consult Requesting Physician: Ravi York MD Patient is a 61-year-old female with fungemia. Consultation was requested to rule out endophthalmitis. Patient reports no eye or vision problems. Chart was reviewed reviewed and appreciated. Examination reveals visual acuity with correction of 20/25 right eye and 20/25- 1 left eye (near equivalent Snellen). Confrontation visual gann were full and normal in both eyes. Ocular motility testing revealed full excursion of both eyes to wall cardinal positions of gaze. Pupils were equal round and reactive with no relative afferent pupillary defects noted. Slit-lamp examination revealed normal eyelids in both eyes. The conjunctiva was normal in both eyes. The the cornea showed moderate punctate epithelial defects in the right eye and a minimal punctate epithelial defects in the left eye. Otherwise the cornea was clear in both eyes. The anterior chamber was grade 1 in depth and clear in both eyes. The intraocular pressures were 11 mmHg in the right eye and 14 mmHg in the left eye by applanation. Pupils were dilated with 1% tropicamide and 2-1/2% phenylephrine drops. Further examination after dilation of the pupils revealed +2 nuclear sclerosis of the lens in both eyes. There was a clear vitreous in both eyes. The optic nerve head was normal in both eyes with a cup-to-disc ratio of 0.4 in the right eye and 0.2 in the left eye. The posterior pole, macula, retinal vessels, and retinal periphery were normal in both eyes. Impression: 1. No signs of fungal or bacterial endophthalmitis was appreciated in either eye. 2. Mild nuclear sclerotic cataracts in both eyes. Recommendation: Continue present treatment. I would be happy to see the patient again as an inpatient or outpatient if needed if her condition changes or she develops new problems with her eyes or vision. - Consult Narrative History of present illness: Ms. Mitchell is a 61 year old female Past Med Surg Social Fam HX - Past Medical History Medical history: hyperlipidemia, hypertension, renal disease, other Psychiatric history: no psych history - Past Surgical History Surgical History: appendectomy, cholecystectomy, hysterectomy, knee replacement , other - Social History Smoking Status: Never smoker Smokeless Tobacco Status: No Alcohol use: rarely Drug use: none - Family History Mother Name: Peggy Swift Living Status: Age at : 70 Cause of : kidney failure Hx Family Cardiac Disorders: Yes Internal Medicine - CN: Meds Cyclobenzaprine [Flexeril] 10 mg PO TID PRN 05/29/17 [History] Ergocalciferol (VITAMIN D2) [Vitamin D2] 50,000 unit PO MO 05/29/17 [History] Furosemide [Lasix] 20 mg PO DAILY 05/29/17 [History] Levothyroxine [Synthroid] 50 mcg PO DAILY 05/29/17 [History] Losartan [Cozaar] 25 mg PO DAILY 05/29/17 [History] Oxycodone HCl/Acetaminophen [Percocet 10-325 mg Tablet] 1 each PO Q4-6H PRN [History] Potassium Chloride [K-Tab ER] 10 meq PO DAILY 05/29/17 [History] Ranitidine HCl [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3-11.1) K/mcL Hgb 9.0 L (11.5-15.4) g/dL Hct 28.3 L (35.3-44.9) % Plt Count 264 (140-400) K/mcL Neutrophils # 6.1 (1.6-8.9) K/mcL BMP 06/25/17 04:05 Sodium 134 L Potassium 4.3 Chloride 98 Carbon Dioxide 27 BUN 20 Creatinine 1.05 Glucose 97 Calcium 8.5 L - ABG Interpretation ABG results: ABG ABG pH 7.43 pH Units (7.32-7.45) 06/08/17 04:24 ABG pCO2 35 mmHg (35-45) 06/08/17 04:24 ABG pO2 72 mmHg (85-104) L 06/08/17 04:24 ABG O2 Saturation 95 % (95-98) 06/08/17 04:24 PT/INR, D-dimer PT 16.4 Seconds (9.4-12.1) H 06/17/17 06:18 Consult Discharge Plan - Plan Referrals: Kole Barksdale MD [Primary Care Provider] - Michele Machuca MD [Non-Partnered Physician] -
[2017-06-25] MEDS: traZODone 50 MG TABLET PO SCH (21:31)
[2017-06-26] MEDS: Cefepime HCl 2,000 MG in Water for inj. (sterile) 20 ML 20 ML IVP SCH ×2 (03:37→17:12)
[2017-06-26] MEDS: Ondansetron ODT 4 MG TAB.RAPDIS SL PRN ×3 (04:18→17:34)
[2017-06-26 05:04] LABS: Basophils % 0.3 %; Eosinophils # 0.1 K/mcL (0.0-0.6); Hematocrit 27.8 % (35.3-44.9); Hemoglobin 8.8 g/dL (11.5-15.4); Immature Granulocytes % 0.8 % (0-4); Lymphocytes # 2.9 K/mcL (0.6-4.6); Lymphocytes % 24.6 %; Mean Corpuscular HGB Conc 31.7 g/dL (31.6-35.5); Mean Corpuscular Hemoglobin 28.8 pg (28.0-33.3); Mean Corpuscular Volume 90.8 fL (83.0-100.0); Mean Platelet Volume 9.9 fL (9.4-12.4); Monocytes # 1.2 K/mcL (0.0-1.3); Neutrophils # 7.5 K/mcL (1.6-8.9); Nucleated Red Blood Cells 0.2 /100 WBC (0); Platelet Count 192 K/mcL (140-400); Red Blood Count 3.06 M/mcL (3.82-4.97); Segmented Neutrophils % 63.3 %
[2017-06-26 05:27] LABS: Calcium 8.3 mg/dL (8.6-10.3); Potassium 4.5 mEq/L (3.5-5.1)
[2017-06-26 05:33] LABS: Platelet Estimate Normal (Normal)
[2017-06-26] MEDS: *HR* Heparin 5,000 UNIT/ML VIAL SQ SCH ×2 (06:17→20:53)
[2017-06-26] MEDS: *HR* OxyCODONE/APAP 10/325 TABLET PO PRN ×4 (06:18→20:53)
--- NOTE | 2017-06-26 08:25 | Event Note ---
Date of Encounter: 06/26/17 Time of Encounter: 08:[address] scan from 06/24/2017 was personally reviewed. Patient still with some persistent moderate hydronephrosis on the right side. This could be related to reflux or simple dilation from the ureteral stent. Patient's serum creatinine is slowly increasing but relatively stable. We will continue to follow from a far. If patient serum creatinine continues to rise and we will likely consider right nephrostomy tube for drainage of right renal system.
--- NOTE | 2017-06-26 09:48 | General Surgery Progress Note ---
Date of Encounter: 06/26/17 Time of Encounter: 09:31 Subjective Patient reports: no new complaints, feels better Narrative: General Surgery - POD#22 Patient indicates she is feeling "great". Voicing no complaints. Admits to minimal nausea when questioned specifically. No emesis. No evidence of fungal or bacterial endophthalmitis EMILIE preliminary results - no visualized endo or pericarditis; no valvular vegetations described. Full report pending Patient continues to be afebrile; most recently 98.8, pulse 85-98, respirations 1618, blood pressure 126/81. SPO2 on 2 L/m nasal cannula 92-97%. Lungs: Clear Abdomen: Soft, nontender; active bowel sounds. Midline incision clean and dry. Skin enedina remain in place without evidence of erythema or edema. Laboratories: White count has risen to 11.8 (upper limits normal 11.1); no associated change in differential. Hemoglobin and hematocrit 8.8/27.8; essentially stable Sodium 134, potassium 4.5; chloride 99, carbon dioxide 27, BUN 20, creatinine continues to rise at 1.14; eGFR decreased to 48 Microbiology: Most recent blood cultures demonstrate no growth on preliminary studies; persistent Jayna glabrata evident on blood cultures dated 06/21/17 Impression: over all status appears improved - abdominal inflammation appears to be slowly resolving. slowly increasing Creatinine / decreasing eGFR Discussed continued antibacterial and antifungal therapy with Dr Mauricio - EMILIE and ophthalmologic findings encouraging Discussed the CT findings of persistent right hydronephrosis with Dr Bradshaw Plan: continue therapy as is. possible re insertion PICC. Objective Vital Signs - Last 8 Hours Temp Pulse Resp BP Pulse Ox 06/26/17 07:15 98.8 F 98 18 126/81 92 06/26/17 04:00 98.8 F 85 16 107/70 97 Intake and Output 06/25/17 06/26/17 06/26/17 23:59 07:59 15:59 Intake Total 420 / 420 120 / 120 120 / 120 Output Total 0 / 0 600 / 600 Balance 420 / 420 -480 / -480 120 / 120 Intake: IV Fluids 420 / 420 120 / 120 Maxipime 2,000 MG In Water for 20 / 20 20 / 20 inj. (sterile) 20 ML @ 300 mls/ hr IVP Q12H [facility] Rx#:[id number] Cubicin 820 MG In 0.9 % Sodium 100 / 100 Chloride 100 ML @ 200 mls/hr IVPB Q24H [facility] Rx#:[id number] Diflucan Premix 400 MG/200 ML 200 / 200 400 mg In 200 ml @ 200 mls/hr IVPB Q24H [facility] Rx#:[id number] Flagyl Premix 500 MG/100 ML 500 100 / 100 100 / 100 mg In 100 ml @ 100 mls/hr IVPB Q8HR [facility] Rx#:[id number] Oral 0 / 0 0 / 0 120 / 120 Output: Urine 0 / 0 300 / 300 Urine/Stool Mix 300 / 300 Other: Meal Breakfast Percent of Meal Consumed 0% Blood Glucose* 144 102 - Labs 06/26/17 04:53 06/26/17 04:53 Diabetes panel 06/26/17 Range/Units 04:53 Sodium 134 L (136-145) mEq/L Potassium 4.5 (3.5-5.1) mEq/L Chloride 99 (98-107) mEq/L Carbon Dioxide 27 (23-29) mEq/L BUN 20 (8-23) mg/dL Creatinine 1.14 (0.60-1.20) mg/dL Glucose 104 (70-105) mg/dL Calcium 8.3 L (8.6-10.3) mg/dL Calcium panel 06/26/17 Range/Units 04:53 Calcium 8.3 L (8.6-10.3) mg/dL Pituitary panel 06/26/17 Range/Units 04:53 Sodium 134 L (136-145) mEq/L Potassium 4.5 (3.5-5.1) mEq/L Chloride 99 (98-107) mEq/L Carbon Dioxide 27 (23-29) mEq/L BUN 20 (8-23) mg/dL Creatinine 1.14 (0.60-1.20) mg/dL Glucose 104 (70-105) mg/dL Calcium 8.3 L (8.6-10.3) mg/dL Adrenal panel 06/26/17 Range/Units 04:53 Sodium 134 L (136-145) mEq/L Potassium 4.5 (3.5-5.1) mEq/L Chloride 99 (98-107) mEq/L Carbon Dioxide 27 (23-29) mEq/L BUN 20 (8-23) mg/dL Creatinine 1.14 (0.60-1.20) mg/dL Glucose 104 (70-105) mg/dL Calcium 8.3 L (8.6-10.3) mg/dL - VTE Documentation of Mechanical Device: Intermittent pneumatic compression device Consult Discharge Plan - Plan Referrals: Kole Barksdale MD [Primary Care Provider] - Michele Machuca MD [Non-Partnered Physician] -
[2017-06-26] MEDS: Insulin LISPRO 300 UNITS/3 ML VIAL SQ SCH ×4 (09:52→21:19)
[2017-06-26] MEDS: MetroNIDAZOLE 500 MG/100 ML 500 MG/100 ML BAG IVPB SCH ×2 (09:53→17:14)
--- NOTE | 2017-06-26 11:51 | Internal Med Progress Note ---
Date of Encounter: 06/26/17 Time of Encounter: 09:00 - Assessment and plan (1) Anemia Current Visit: Yes Status: Chronic Assessment and plan: monitor hb, hemoglobin has been stable between 8 and 9. transfusion for Hb <7 Qualifiers: Anemia type: unspecified type Qualified Code(s): D64.9 - Anemia, unspecified (2) Abdominal abscess Current Visit: Yes Status: Resolved Assessment and plan: CT 06/16 revealed enlarging fluid collections suspicious for organizing abscess IR performed percutaneous drainage of abscess 06/17 Cultures grew candidia MRSA, Enterococcus faecium-VRE Continue current antibiotics CT scan 06/24 shows near resolution, management per surgery (3) MRSA bacteremia Current Visit: Yes Status: Resolved Assessment and plan: Blood cultures positive for MRSA bacteremia, with suspected source is PICC line vs central venous line TTE shows ejection fraction of 65-70% with mild tricuspid regurgitation, no vegetations noted EMILIE done 06/25 negative for vegetations No MRSA in blood cultures since 06/10 (4) Perforated diverticulum Current Visit: Yes Status: Acute Assessment and plan: Sepsis secondary to VRE, MRSA and yeast bacteremia possibly due to perforated diverticulum Afebrile now. Improving D/C TPN 06/23/17 POD #22 s/p sigmoid colectomy with stapled colocolonic anastomosis Improving. Surgery is following. Infectious disease is following Continue current management. (5) UTI (urinary tract infection) Current Visit: Yes Status: Acute Assessment and plan: fungal, continue Diflucan. Qualifiers: Urinary tract infection type: acute cystitis Hematuria presence: without hematuria Qualified Code(s): N30.00 - Acute cystitis without hematuria (6) VRE bacteremia Current Visit: Yes Status: Acute Assessment and plan: as in sepsis, continue cefepime and daptomycin. (7) HTN (hypertension) Current Visit: Yes Status: Chronic Assessment and plan: BP well controlled at this visit recently Hold medications Qualifiers: Hypertension type: essential hypertension Qualified Code(s): I10 - Essential (primary) hypertension (8) Hypothyroidism Current Visit: Yes Status: Chronic Assessment and plan: Continue po synthroid Qualifiers: Hypothyroidism type: acquired Qualified Code(s): E03.9 - Hypothyroidism, unspecified (9) Morbid obesity with BMI of 45.0-49.9, adult Current Visit: Yes Status: Chronic Assessment and plan: lifestyle modification (10) Sepsis Current Visit: Yes Status: Resolved Assessment and plan: resolved, afebrile since 06/21/17 as in diverticulitis Qualifiers: Sepsis type: methicillin resistant Staphylococcus aureus Qualified Code(s) : A41.02 - Sepsis due to Methicillin resistant Staphylococcus aureus (11) Acute respiratory failure with hypoxia Current Visit: Yes Status: Resolved Assessment and plan: resolved, comfortable on room air (12) Depression Current Visit: Yes Status: Acute Assessment and plan: trazodone HS , continue same QTc not prolonged NO suicidal ideations Qualifiers: Depression Type: unspecified Qualified Code(s): F32.9 - Major depressive disorder, single episode, unspecified (13) Hydronephrosis Current Visit: Yes Status: Acute Assessment and plan: CT 06/16 showed enlarging hydronephrosis despite stent placement Repeat CT done 06/24 shows persistent was consulted on admission and also seen patient today Her BUN/cr is stable Continue to monitor Qualifiers: Hydronephrosis type: other Qualified Code(s): N13.39 - Other hydronephrosis - Subjective Interval history: Seen and examined with partner at bedside Hospital day 28 Multiple complications Initial admission was for acute perforated diverticulitis, complicated by MRSA bacteremia, VRE bacteremia and fungemia Started on cipro/flagyl 05/29, admitting blood cultures 05/30 were negative X 2 bottles Patient underwent exploratory celiotomy with sigmoid colectomy on 06/04/17. She had a PICC line and subclavian CVC placed and confirmed by chest x-ray on . patient became febrile 06/09, with worsening leukocytosis and antibiotics were broadened to vancomycin and cefepime and Flagyl was continued. She developed fever of 102.1 on 06/11/17 and primary team started patient on Micafungin 100mg daily. CT abdomen/pelvis same day showed increasing fluid collections along abdominal incision, and multiloculated fluid loculations throughout the abdomen and pelvis increased in size and organizing, decreased pneumoperitoneum 06/14/18 micafungin d/c and patient started on diflucan CT notes increased size of abscess to drain 10.7 cm within the abdomen. Worsening right hydronephrosis. An worsening seroma below incision measuring 4.1 x 5.6 cm. s/p percutaneous drainage of abdominal abscess by IR 06/17/2017: Cultures have grown MRSA, VRE, pansensitive Jayna albicans Repeat blood cultures: 06/18/17 peripheral blood cultures grew yeast (2/2 cultures ) and VRE (1/2 cultures) 06/19/17 peripheral cultures growing yeast and VRE -drawn from CVC 06/19/17 central venous catheter tip culture preliminary negative 06/20/17 blood cultures -source were peripheral, CVC and PICC line: GNR, C. galbrata 06/21/17 blood culture . C. galbrata from CVC 06/21/17: Peripehral access . 1 bottle prelim negative 06/23/17: peripheral blood culture negative so far Repeat abdomen CT done 06/24 showed improvement Drain removed 06/24/17 PICC line was discontinued 06/24/17 EMILIE done 06/25 shows no vegetations Seen at bedside She reports a better and improved mood and has no new complains Plan for today- PICC line placement when PICC team is available POD 22, surgery is following closely Last fever 06/21/17, afebrile since then, Tmax in 24 hrs 100.1 Continue Current antibiotics- Daptomycin, Cefepime, Flagyl, Fluconazole ( switched 06/24 Ophthal eval noted, no endophthalitis Blood pressure is improving-continue to hold blood pressure medications Urology eval noted, appreciated. Monitor HB, transfusion for HB <7 - Constitutional Vitals: Temp Pulse Resp BP Pulse Ox 98.8 F 90 18 107/65 95 06/26/17 07:15 06/26/17 10:49 06/26/17 10:49 06/26/17 10:49 06/26/17 10:49 General appearance: Present: cooperative, A&O X 3, pleasant, no acute distress, obese, answers questions appropriately - Head Head exam: Present: atraumatic, normocephalic - Eye Eye exam: Present: PERRL, conjuntiva pink, sclera anicteric Pupils: Present: PERRL - Neck Neck exam general surgery: Present: supple, trachea midline. Absent: lymphadenopathy - Respiratory Respiratory exam: Present: CTAB. Absent: accessory muscle use, rales, rhonchi, wheezes - GI/Abdominal GI/Abdominal exam: Present: normal bowel sounds, soft. Absent: tenderness Additional comments: enedina clean and dry - Extremities Exam Extremities exam: Present: warm, radial pulses palpable and symmetrical. Absent : calf tenderness, cyanotic, pedal edema - Neurological Exam Neurological exam: Present: alert, CN II-XII intact, oriented X3, no focal deficits. Absent: pronater drift, facial droop, speech deficit - Skin Skin exam: Present: dry Internal Medicine: Result - Labs CBC & Chem 7: 06/26/17 04:53 06/26/17 04:53 Labs: Short CBC 06/26/17 Range/Units 04:53 WBC 11.8 H (4.3-11.1) K/mcL Hgb 8.8 L (11.5-15.4) g/dL Hct 27.8 L (35.3-44.9) % Plt Count 192 (140-400) K/mcL Neutrophils # 7.5 (1.6-8.9) K/mcL BMP 06/26/17 04:53 Sodium 134 L Potassium 4.5 Chloride 99 Carbon Dioxide 27 BUN 20 Creatinine 1.14 Glucose 104 Calcium 8.3 L - ABG Interpretation ABG results: ABG ABG pH 7.43 pH Units (7.32-7.45) 06/08/17 04:24 ABG pCO2 35 mmHg (35-45) 06/08/17 04:24 ABG pO2 72 mmHg (85-104) L 06/08/17 04:24 ABG O2 Saturation 95 % (95-98) 06/08/17 04:24 PT/INR, D-dimer PT 16.4 Seconds (9.4-12.1) H 06/17/17 06:18 - VTE Documentation of Mechanical Device: Intermittent pneumatic compression device Consult Discharge Plan - Plan Referrals: Kole Barksdale MD [Primary Care Provider] - Michele Machuca MD [Non-Partnered Physician] -
[2017-06-26] MEDS: *HR* LORazepam 0.5 MG TABLET PO PRN (15:46)
[2017-06-26] MEDS: Fluconazole 400 MG/200 ML 400 MG/200 ML BAG IVPB SCH (17:14)
[2017-06-26] MEDS: traZODone 50 MG TABLET PO SCH (20:54)
[2017-06-27] MEDS: SODIUM CHLORIDE 0.9% IVPB SCH ×2 (00:38→16:57)
[2017-06-27] MEDS: DAPTOMYCIN IVPB SCH ×2 (00:38→16:57)
[2017-06-27] MEDS: MetroNIDAZOLE 500 MG/100 ML 500 MG/100 ML BAG IVPB SCH ×4 (01:03→23:51)
[2017-06-27] MEDS: *HR* LORazepam 0.5 MG TABLET PO PRN ×2 (01:04→17:31)
[2017-06-27] MEDS: *HR* OxyCODONE/APAP 10/325 TABLET PO PRN ×5 (01:04→22:41)
[2017-06-27] MEDS: Cefepime HCl 2,000 MG in Water for inj. (sterile) 20 ML 20 ML IVP SCH ×2 (03:49→14:40)
[2017-06-27] MEDS: Ondansetron ODT 4 MG TAB.RAPDIS SL PRN ×3 (06:13→17:26)
[2017-06-27] MEDS: *HR* Heparin 5,000 UNIT/ML VIAL SQ SCH ×2 (06:13→17:26)
[2017-06-27] MEDS: Insulin LISPRO 300 UNITS/3 ML VIAL SQ SCH ×4 (09:02→22:11)
--- NOTE | 2017-06-27 09:41 | Internal Med Progress Note ---
Date of Encounter: 06/27/17 Time of Encounter: 09:20 - Assessment and plan (1) Anemia Current Visit: Yes Status: Chronic Assessment and plan: monitor hb, hemoglobin has been stable between 8 and 9. transfusion for Hb <7 Qualifiers: Anemia type: unspecified type Qualified Code(s): D64.9 - Anemia, unspecified (2) Abdominal abscess Current Visit: Yes Status: Resolved Assessment and plan: CT 06/16 revealed enlarging fluid collections suspicious for organizing abscess IR performed percutaneous drainage of abscess 06/17 Cultures grew candidia MRSA, Enterococcus faecium-VRE Continue current antibiotics CT scan 06/24 shows near resolution, management per surgery (3) MRSA bacteremia Current Visit: Yes Status: Resolved Assessment and plan: Blood cultures positive for MRSA bacteremia, with suspected source is PICC line vs central venous line TTE shows ejection fraction of 65-70% with mild tricuspid regurgitation, no vegetations noted EMILIE done 06/25 negative for vegetations No MRSA in blood cultures since 06/10 (4) Perforated diverticulum Current Visit: Yes Status: Acute Assessment and plan: Sepsis secondary to VRE, MRSA and yeast bacteremia possibly due to perforated diverticulum Afebrile now. Improving D/C TPN 06/23/17 POD #23 s/p sigmoid colectomy with stapled colocolonic anastomosis Improving. Surgery is following. Infectious disease is following Continue current management. (5) UTI (urinary tract infection) Current Visit: Yes Status: Acute Assessment and plan: fungal, continue Diflucan. Qualifiers: Urinary tract infection type: acute cystitis Hematuria presence: without hematuria Qualified Code(s): N30.00 - Acute cystitis without hematuria (6) VRE bacteremia Current Visit: Yes Status: Resolved Assessment and plan: Resolved.. 3 seperate Blood culture sets negative 4 days apart. continue cefepime and daptomycin. (7) HTN (hypertension) Current Visit: Yes Status: Chronic Assessment and plan: BP well controlled at this visit recently Hold medications Qualifiers: Hypertension type: essential hypertension Qualified Code(s): I10 - Essential (primary) hypertension (8) Hypothyroidism Current Visit: Yes Status: Chronic Assessment and plan: Continue po synthroid Qualifiers: Hypothyroidism type: acquired Qualified Code(s): E03.9 - Hypothyroidism, unspecified (9) Morbid obesity with BMI of 45.0-49.9, adult Current Visit: Yes Status: Chronic Assessment and plan: lifestyle modification (10) Sepsis Current Visit: Yes Status: Resolved Assessment and plan: resolved, afebrile since 06/21/17 as in diverticulitis new leukocytsis possibly due to dehydration Qualifiers: Sepsis type: methicillin resistant Staphylococcus aureus Qualified Code(s) : A41.02 - Sepsis due to Methicillin resistant Staphylococcus aureus (11) Acute respiratory failure with hypoxia Current Visit: Yes Status: Resolved Assessment and plan: resolved, comfortable on room air (12) Depression Current Visit: Yes Status: Acute Assessment and plan: trazodone HS , continue same QTc not prolonged NO suicidal ideations Qualifiers: Depression Type: unspecified Qualified Code(s): F32.9 - Major depressive disorder, single episode, unspecified (13) Hydronephrosis Current Visit: Yes Status: Acute Assessment and plan: CT 06/16 showed enlarging hydronephrosis despite stent placement Repeat CT done 06/24 shows persistent was consulted on admission and also seen patient today Her BUN/cr is stable GIve 1L IVF gentle hydration Continue to monitor Qualifiers: Hydronephrosis type: other Qualified Code(s): N13.39 - Other hydronephrosis - Subjective Interval history: Seen and examined with partner at bedside Hospital day 29 Multiple complications Initial admission was for acute perforated diverticulitis, complicated by MRSA bacteremia, VRE bacteremia and fungemia Started on cipro/flagyl 05/29, admitting blood cultures 05/30 were negative X 2 bottles Patient underwent exploratory celiotomy with sigmoid colectomy on 06/04/17. She had a PICC line and subclavian CVC placed and confirmed by chest x-ray on . patient became febrile 06/09, with worsening leukocytosis and antibiotics were broadened to vancomycin and cefepime and Flagyl was continued. She developed fever of 102.1 on 06/11/17 and primary team started patient on Micafungin 100mg daily. CT abdomen/pelvis same day showed increasing fluid collections along abdominal incision, and multiloculated fluid loculations throughout the abdomen and pelvis increased in size and organizing, decreased pneumoperitoneum 06/14/18 micafungin d/c and patient started on diflucan CT 18 notes increased size of abscess to drain 10.7 cm within the abdomen. Worsening right hydronephrosis. An worsening seroma below incision measuring 4.1 x 5.6 cm. s/p percutaneous drainage of abdominal abscess by IR 06/17/2017: Cultures have grown MRSA, VRE, pansensitive Jayna albicans Repeat blood cultures: 06/18/17 peripheral blood cultures grew yeast (2/2 cultures ) and VRE (1/2 cultures) 06/19/17 peripheral cultures growing yeast and VRE -drawn from CVC 06/19/17 central venous catheter tip culture preliminary negative 06/20/17 blood cultures -source were peripheral, CVC and PICC line: GNR, C. galbrata 06/21/17 blood culture . C. galbrata from CVC 06/21/17: Peripehral access . 1 bottle prelim negative 06/23/17: peripheral blood culture negative so far 06/25/17: Negative no growth Repeat abdomen CT done 06/24 showed improvement Drain removed 06/24/17 PICC line was discontinued 06/24/17 EMILIE done 06/25 shows no vegetations Seen at bedside She reports her urine has been dark. Her kidney function has been slowly increasing. She has no leukocytosis. Low-grade fevers from yesterday resolved. Plan for today- PICC line placement when PICC team is available POD 23, surgery is following closely Last fever 06/26/17, afebrile since then, Tmax in 24 hrs 1004 Continue Current antibiotics- Daptomycin, Cefepime, Flagyl, Fluconazole ( switched 06/24 Ophthal eval noted, no endophthalitis Blood pressure is improving-continue to hold blood pressure medications Urology eval noted, appreciated. Gentle hydration for possible dehydration Monitor chemistry Monitor HB, transfusion for HB <7 - Constitutional Vitals: Temp Pulse Resp BP Pulse Ox 98.2 F 87 18 118/75 96 06/27/17 08:32 06/27/17 08:32 06/27/17 08:32 06/27/17 08:32 06/27/17 08:32 General appearance: Present: cooperative, A&O X 3, pleasant, no acute distress, obese, answers questions appropriately - Head Head exam: Present: atraumatic, normocephalic - Eye Eye exam: Present: PERRL, conjuntiva pink, sclera anicteric Pupils: Present: PERRL - Neck Neck exam general surgery: Present: supple, trachea midline. Absent: lymphadenopathy - Respiratory Respiratory exam: Present: CTAB. Absent: accessory muscle use, rales, rhonchi, wheezes - Cardiovascular Cardiovascular exam: Present: RRR, +S1, +S2. Absent: diastolic murmur, gallop, rubs, systolic murmur - GI/Abdominal Additional comments: Insertion site with enedina clean and dry. No tenderness. - Extremities Exam Extremities exam: Present: warm, radial pulses palpable and symmetrical. Absent : calf tenderness, cyanotic, pedal edema - Neurological Exam Neurological exam: Present: alert, CN II-XII intact, normal gait, oriented X3, no focal deficits - Skin Skin exam: Present: dry, intact Internal Medicine: Result - Labs CBC & Chem 7: 06/27/17 09:38 06/26/17 04:53 - ABG Interpretation ABG results: ABG ABG pH 7.43 pH Units (7.32-7.45) 06/08/17 04:24 ABG pCO2 35 mmHg (35-45) 06/08/17 04:24 ABG pO2 72 mmHg (85-104) L 06/08/17 04:24 ABG O2 Saturation 95 % (95-98) 06/08/17 04:24 PT/INR, D-dimer PT 16.4 Seconds (9.4-12.1) H 06/17/17 06:18 - VTE Documentation of Mechanical Device: Intermittent pneumatic compression device Consult Discharge Plan - Plan Referrals: Kole Barksdale MD [Primary Care Provider] - Michele Machuca MD [Non-Partnered Physician] -
[2017-06-27 09:57] LABS: Basophils % 0.2 %; Eosinophils # 0.1 K/mcL (0.0-0.6); Eosinophils % 0.7 %; Hemoglobin 9.5 g/dL (11.5-15.4); Immature Granulocytes % 0.8 % (0-4); Lymphocytes # 3.6 K/mcL (0.6-4.6); Lymphocytes % 22.2 %; Mean Corpuscular HGB Conc 30.6 g/dL (31.6-35.5); Mean Corpuscular Hemoglobin 28.1 pg (28.0-33.3); Mean Corpuscular Volume 91.7 fL (83.0-100.0); Monocytes # 1.8 K/mcL (0.0-1.3); Monocytes % 11.1 %; Neutrophils # 10.4 K/mcL (1.6-8.9); Platelet Count 322 K/mcL (140-400); Red Blood Count 3.38 M/mcL (3.82-4.97); Red Cell Distribution Width 15.8 % (11.5-14.5)
--- NOTE | 2017-06-27 11:14 | General Surgery Progress Note ---
Date of Encounter: 06/27/17 Time of Encounter: 11:07 Subjective Patient reports: no new complaints Narrative: General Surgery - POD #23 Patient seated at bedside; voicing no complaints. Due to lack of IV access patient has missed several doses of antibiotics and antifungals. Patient refused re-insertion of CVL Peripheral access has been obtained via the left upper extremity; awaiting PICC insertion maximum temperature 110.4 thru the night; Pulse 90-100; RR 17; BP 107/65 -144 /85 Lungs: Clear, no abdominal pain with deep inspiration or cough Abdomen: Soft, nontender. Active bowel sounds. Midline incision clean and dry - no drainage, erythema, or edema Laboratories notable for increasing leukocytosis, 16.1 with neutrophilia, 10.4% Impression: Postoperative day #23 No new complaints by the patient however increasing leukocytosis and low-grade fever are new developments in this patient's lengthy and complicated course. Continue to monitor - repeat labs in AM Objective Vital Signs - Last 8 Hours Temp Pulse Resp BP Pulse Ox 06/27/17 09:54 99.5 F 97 18 105/68 97 06/27/17 08:32 98.2 F 87 18 118/75 96 06/27/17 05:11 98.3 F 85 17 119/74 97 Intake and Output 06/26/17 06/27/17 06/27/17 23:59 07:59 15:59 Intake Total 120 / 120 100 / 100 120 / 120 Output Total 0 / 0 0 / 0 Balance 120 / 120 100 / 100 120 / 120 Intake: IV Fluids 120 / 120 100 / 100 Maxipime 2,000 MG In Water for 20 / 20 inj. (sterile) 20 ML @ 300 mls/ hr IVP Q12H [facility] Rx#:[id number] Flagyl Premix 500 MG/100 ML 500 100 / 100 100 / 100 mg In 100 ml @ 100 mls/hr IVPB Q8HR [facility] Rx#:[id number] Oral 0 / 0 120 / 120 Output: Urine 0 / 0 0 / 0 Other: Meal Dinner Breakfast Percent of Meal Consumed 5% 80% # Voids 1 # Bowel Movements 0 Blood Glucose* 108 105 - Labs 06/27/17 09:38 06/26/17 04:53 - VTE Documentation of Mechanical Device: Intermittent pneumatic compression device Consult Discharge Plan - Plan Referrals: Kole Barksdale MD [Primary Care Provider] - Michele Machuca MD [Non-Partnered Physician] -
[2017-06-27] MEDS ORDERED: 0.9 % Sodium Chloride 1,000 ML IVC SCH (12:00)
[2017-06-27] MEDS: Fluconazole 400 MG/200 ML 400 MG/200 ML BAG IVPB SCH (16:59)
[2017-06-27] MEDS: Acetaminophen 325 MG TABLET PO PRN (22:11)
[2017-06-27] MEDS: traZODone 50 MG TABLET PO SCH (22:11)
[2017-06-28] MEDS: *HR* OxyCODONE/APAP 10/325 TABLET PO PRN ×4 (02:54→16:57)
[2017-06-28] MEDS: Ondansetron ODT 4 MG TAB.RAPDIS SL PRN ×4 (02:54→16:57)
[2017-06-28] MEDS: Cefepime HCl 2,000 MG in Water for inj. (sterile) 20 ML 20 ML IVP SCH ×2 (03:00→16:54)
[2017-06-28] MEDS: *HR* Heparin 5,000 UNIT/ML VIAL SQ SCH ×2 (05:42→18:22)
[2017-06-28 05:48] LABS: Calcium 8.2 mg/dL (8.6-10.3)
[2017-06-28 05:58] LABS: Basophils # 0.1 K/mcL (0.0-0.2); Basophils % 0.3 %; Eosinophils # 0.1 K/mcL (0.0-0.6); Eosinophils % 0.7 %; Hematocrit 27.9 % (35.3-44.9); Hemoglobin 8.7 g/dL (11.5-15.4); Immature Granulocytes % 1.2 % (0-4); Lymphocytes # 3.7 K/mcL (0.6-4.6); Lymphocytes % 24.4 %; Mean Corpuscular HGB Conc 31.2 g/dL (31.6-35.5); Mean Corpuscular Hemoglobin 29.1 pg (28.0-33.3); Mean Corpuscular Volume 93.3 fL (83.0-100.0); Mean Platelet Volume 9.3 fL (9.4-12.4); Monocytes # 1.5 K/mcL (0.0-1.3); Neutrophils # 9.7 K/mcL (1.6-8.9); Platelet Count 319 K/mcL (140-400); Red Blood Count 2.99 M/mcL (3.82-4.97); Red Cell Distribution Width 15.9 % (11.5-14.5); Segmented Neutrophils % 63.4 %
[2017-06-28 07:37] LABS: Hypersegmented Neutrophils Present (Not Present); Platelet Estimate Normal (Normal)
[2017-06-28] MEDS ORDERED: 0.9 % Sodium Chloride 1,000 ML IVC ONE (07:39)
[2017-06-28] MEDS: Insulin LISPRO 300 UNITS/3 ML VIAL SQ SCH ×4 (07:57→20:48)
[2017-06-28] MEDS: MetroNIDAZOLE 500 MG/100 ML 500 MG/100 ML BAG IVPB SCH ×3 (08:04→23:27)
--- NOTE | 2017-06-28 09:54 | Internal Med Progress Note ---
Date of Encounter: 06/28/17 Time of Encounter: 09:53 - Assessment and plan (1) Anemia Current Visit: Yes Status: Chronic Assessment and plan: monitor hb, hemoglobin has been stable between 8 and 9. transfusion for Hb <7 Qualifiers: Anemia type: unspecified type Qualified Code(s): D64.9 - Anemia, unspecified (2) Abdominal abscess Current Visit: Yes Status: Resolved Assessment and plan: CT 06/16 revealed enlarging fluid collections suspicious for organizing abscess IR performed percutaneous drainage of abscess 06/17 Cultures grew candidia MRSA, Enterococcus faecium-VRE Continue current antibiotics CT scan 06/24 shows near resolution, management per surgery (3) MRSA bacteremia Current Visit: Yes Status: Resolved Assessment and plan: Blood cultures positive for MRSA bacteremia, with suspected source is PICC line vs central venous line TTE shows ejection fraction of 65-70% with mild tricuspid regurgitation, no vegetations noted EMILIE done 06/25 negative for vegetations No MRSA in blood cultures since 06/10 (4) Perforated diverticulum Current Visit: Yes Status: Acute Assessment and plan: Sepsis secondary to VRE, MRSA and yeast bacteremia possibly due to perforated diverticulum Afebrile now. Improving D/C TPN 06/23/17 POD #24 s/p sigmoid colectomy with stapled colocolonic anastomosis Improving. Surgery is following. Infectious disease is following Continue current management. (5) UTI (urinary tract infection) Current Visit: Yes Status: Acute Assessment and plan: fungal, continue Diflucan. Qualifiers: Urinary tract infection type: acute cystitis Hematuria presence: without hematuria Qualified Code(s): N30.00 - Acute cystitis without hematuria (6) VRE bacteremia Current Visit: Yes Status: Resolved Assessment and plan: Resolved.. 3 seperate Blood culture sets negative 4 days apart. continue cefepime and daptomycin. check CK (7) HTN (hypertension) Current Visit: Yes Status: Chronic Assessment and plan: BP well controlled at this visit recently Hold medications Qualifiers: Hypertension type: essential hypertension Qualified Code(s): I10 - Essential (primary) hypertension (8) Hypothyroidism Current Visit: Yes Status: Chronic Assessment and plan: Continue po synthroid Qualifiers: Hypothyroidism type: acquired Qualified Code(s): E03.9 - Hypothyroidism, unspecified (9) Morbid obesity with BMI of 45.0-49.9, adult Current Visit: Yes Status: Chronic Assessment and plan: lifestyle modification (10) Sepsis Current Visit: Yes Status: Resolved Assessment and plan: resolved, afebrile since 06/21/17 as in diverticulitis new leukocytsis possibly due to dehydration, improving, continue to monitor Qualifiers: Sepsis type: methicillin resistant Staphylococcus aureus Qualified Code(s) : A41.02 - Sepsis due to Methicillin resistant Staphylococcus aureus (11) Acute respiratory failure with hypoxia Current Visit: Yes Status: Resolved Assessment and plan: resolved, comfortable on room air (12) Depression Current Visit: Yes Status: Acute Assessment and plan: trazodone HS , continue same QTc not prolonged NO suicidal ideations Qualifiers: Depression Type: unspecified Qualified Code(s): F32.9 - Major depressive disorder, single episode, unspecified (13) Hydronephrosis Current Visit: Yes Status: Acute Assessment and plan: CT 06/16 showed enlarging hydronephrosis despite stent placement Repeat CT done 06/24 shows persistent was consulted on admission and also seen patient today Her BUN/cr is elevated GIve 1L IVF gentle hydration Continue to monitor Qualifiers: Hydronephrosis type: other Qualified Code(s): N13.39 - Other hydronephrosis - Subjective Interval history: Seen and examined with partner at bedside Hospital day 30 Multiple complications Initial admission was for acute perforated diverticulitis, complicated by MRSA bacteremia, VRE bacteremia and fungemia Started on cipro/flagyl 05/29, admitting blood cultures 05/30 were negative X 2 bottles Patient underwent exploratory celiotomy with sigmoid colectomy on 06/04/17. She had a PICC line and subclavian CVC placed and confirmed by chest x-ray on . patient became febrile 06/09, with worsening leukocytosis and antibiotics were broadened to vancomycin and cefepime and Flagyl was continued. She developed fever of 102.1 on 06/11/17 and primary team started patient on Micafungin 100mg daily. CT abdomen/pelvis same day showed increasing fluid collections along abdominal incision, and multiloculated fluid loculations throughout the abdomen and pelvis increased in size and organizing, decreased pneumoperitoneum 06/14/18 micafungin d/c and patient started on diflucan CT notes increased size of abscess to drain 10.7 cm within the abdomen. Worsening right hydronephrosis. An worsening seroma below incision measuring 4.1 x 5.6 cm. s/p percutaneous drainage of abdominal abscess by IR 06/17/2017: Cultures have grown MRSA, VRE, pansensitive Jayna albicans Repeat blood cultures: 06/18/17 peripheral blood cultures grew yeast (2/2 cultures ) and VRE (1/2 cultures) 06/19/17 peripheral cultures growing yeast and VRE -drawn from CVC 06/19/17 central venous catheter tip culture preliminary negative 06/20/17 blood cultures -source were peripheral, CVC and PICC line: GNR, C. galbrata 06/21/17 blood culture . C. galbrata from CVC 06/21/17: Peripehral access . 1 bottle prelim negative 06/23/17: peripheral blood culture negative so far 06/25/17: Negative no growth Repeat abdomen CT done 06/24 showed improvement Drain removed 06/24/17 PICC line was discontinued 06/24/17 EMILIE done 06/25 shows no vegetations Seen at bedside She reports her urine has been dark. Her kidney function has been slowly increasing. She has no leukocytosis. Low-grade fevers from yesterday resolved. Plan for today- 1L IVF saline bolus for elevated CR above baseline, consider Urology eval Leukocytosis is improving PICC line ptoday POD 24, surgery is following closely Last fever 06/26/17, afebrile since then, Tmax in 24 hrs 1004 Continue Current antibiotics- Daptomycin, Cefepime, Flagyl, Fluconazole ( switched 06/24 Ophthal eval noted, no endophthalitis Blood pressure is improving-continue to hold blood pressure medications Urology eval noted, appreciated. Gentle hydration for possible dehydration Monitor chemistry Monitor HB, transfusion for HB <7 - Constitutional Vitals: Temp Pulse Resp BP Pulse Ox 99.1 F 88 18 102/60 100 06/28/17 06:26 06/28/17 06:26 06/28/17 06:26 06/28/17 06:26 06/28/17 06:26 General appearance: Present: cooperative, A&O X 3, morbidly obese, pleasant, no acute distress, answers questions appropriately - Head Head exam: Present: atraumatic, normocephalic - Eye Eye exam: Present: PERRL, conjuntiva pink, sclera anicteric Pupils: Present: PERRL - Neck Neck exam general surgery: Present: supple, trachea midline. Absent: lymphadenopathy - Respiratory Respiratory exam: Present: CTAB. Absent: accessory muscle use, rales, rhonchi, wheezes - Cardiovascular Cardiovascular exam: Present: RRR, +S1, +S2. Absent: diastolic murmur, gallop, rubs, systolic murmur - GI/Abdominal GI/Abdominal exam: Present: normal bowel sounds, soft, no peritoneal signs. Absent: distended, tenderness Additional comments: scar. mild tenderness. normal BS - Extremities Exam Extremities exam: Present: warm, radial pulses palpable and symmetrical. Absent : calf tenderness, cyanotic, pedal edema - Neurological Exam Neurological exam: Present: alert, CN II-XII intact, oriented X3, no focal deficits. Absent: pronater drift, facial droop, speech deficit - Skin Skin exam: Present: dry, intact Internal Medicine: Result - Labs CBC & Chem 7: 06/28/17 03:10 06/28/17 03:10 Labs: Short CBC 06/27/17 06/28/17 Range/Units 09:38 03:10 WBC 16.1 H 15.3 H (4.3-11.1) K/mcL Hgb 9.5 L 8.7 L (11.5-15.4) g/dL Hct 31.0 L 27.9 L (35.3-44.9) % Plt Count 322 D 319 (140-400) K/mcL Neutrophils # 10.4 H 9.7 H (1.6-8.9) K/mcL BMP 06/28/17 03:10 Sodium 133 L Potassium 4.0 Chloride 99 Carbon Dioxide 25 BUN 21 Creatinine 1.33 H Glucose 107 H Calcium 8.2 L - ABG Interpretation ABG results: ABG ABG pH 7.43 pH Units (7.32-7.45) 06/08/17 04:24 ABG pCO2 35 mmHg (35-45) 06/08/17 04:24 ABG pO2 72 mmHg (85-104) L 06/08/17 04:24 ABG O2 Saturation 95 % (95-98) 06/08/17 04:24 PT/INR, D-dimer PT 16.4 Seconds (9.4-12.1) H 06/17/17 06:18 - VTE Documentation of Mechanical Device: Intermittent pneumatic compression device Consult Discharge Plan - Plan Referrals: Kole Barksdale MD [Primary Care Provider] - Michele Machuca MD [Non-Partnered Physician] -
--- NOTE | 2017-06-28 11:05 | Infectious Disease Progress No ---
Date of Encounter: 06/28/17 Time of Encounter: 11:20 - Assessment and Plan (1) Sepsis Current Visit: Yes Status: Resolved Severe Sepsis 2/2 MRSA and VRE bacteremia with evidence of organ dysfunction Presented with 3 SIRS criteria Since 06/26 patient has had elevated temperature with high 100.4, tachycardia with heart rate of high at 100, and redevelopment of leukocytosis with white blood cell count is high 16.1 Patient was temperature 99.1 with a MAXIMUM TEMPERATURE of 99.8 White blood cell count has trended down to 15.3 today Heart rate 97 Secondary to complicated diverticulitis, MRSA bacteremia, hank glabrata bacteremia, VRE bacteremia, UTI 2nd to hank albicans and Hank glabrata Qualifiers: Sepsis type: methicillin resistant Staphylococcus aureus Qualified Code(s) : A41.02 - Sepsis due to Methicillin resistant Staphylococcus aureus (2) Perforated diverticulum Current Visit: Yes Status: Resolved Patient presented with acute onset of sharp abdominal pain. Has history of sigmoid diverticulitis. CT abdomen on 05/29 showed pneumoperitoneum with diverticulitis of sigmoid colon. Patient underwent exploratory celiotomy with sigmoid colectomy with colocolonic anastomosis on 06/04/17. She had a PICC line and subclavian CVC placed and confirmed by chest x-ray on . Patient was also started on Cipro and Flagyl on 05/29. Blood Cultures on are negative. Patient became febrile 06/09, with worsening leukocytosis and antibiotics were broadened to vancomycin and cefepime and Flagyl Fever of 102.1 on 06/11/17 and primary team started patient on Micafungin 100mg daily. CT abdomen/pelvis 06/11 increasing fluid collections along abdominal incision, and multiloculated fluid loculations throughout the abdomen and pelvis increased in size and organizing, decreased pneumoperitoneum 06/14/18 micafungin d/c and patient started on diflucan which was switched back to micafungin as patient grew hank glabrata in urine culture/blood. CT notes increased size of abscess to drain 10.7 cm within the abdomen. Worsening right hydronephrosis. And worsening seroma below incision measuring 4.1 x 5.6 cm. Status post percutaneous drainage of abdominal abscess by IR 06/17/2017: Cultures have grown MRSA, VRE, pansensitive Hank albicans CT 06/19/2017 shows improvement of previous abdominal abscess. Continued small pockets of fluid collections throughout the abdomen and pelvis. Persistent pneumoperitoneum persistent moderate right hydronephrosis and hydroureter in the presence of nephroureteral stent and slight interval decrease in size of fluid collection within the subcutaneous fat of the midline anterior abdominal wall. She had recurrent fever over weekend of jun 19-08/2017 and cultures were redrawn as below: Repeat blood cultures: 06/18/17 peripheral blood cultures grew hank glabrata (2 /2 cultures) and VRE (1/2 cultures) 06/19/17 peripheral cultures growing hank glabrata / cvc blood cultures VRE and hank glabrata 06/19/17 central venous catheter tip culture growing yeast 06/20/17 peripheral blood culture growing Hank glabrata 06/20/17 PICC blood culture hank growth Miller and gram- negative rip (proteus sepcies) 06/21/17 peripheral blood culture negative for growth 06/21/17 R. PICC blood culture hank glabrata 06/23/17 blood cultures preliminarily negative 06/25/17 blood cultures preliminarily negative CT 06/24/17 shows complete resolution of intra-abdominal abscess following drain placement, decreased size of scattered fluid pockets, decreased air-fluid collection within the soft tissues underneath the incision. New G- bacteremia as noted above, likely contamination as it grew on 06/20 culture but not 06/21 or 06/19. High temperature of 100.4 last 24 hours with a fever of 100.4 on 06/26/17 continue diflucan, cefepime 2000mg Q12h, daptomycin and flagyl 500mg Q8h Antibiotic duration depends on clinical picture (3) Candidemia Current Visit: Yes Status: Acute as stated above patient has candidia glabrata and parapsilosis in blood. Patient reports seen software applications designer on Wednesday night, who reportedly did not see any evidence of endophthalmitis per the patient (4) VRE bacteremia Current Visit: Yes Status: Resolved 06/19/17 CVC blood culture + for VRE Patient was switched to daptomycin last weekend. CK is 23 repeat blood cultures collected 06/21/2017 are preliminary negative for VRE EMILIE negative for endocarditis continue daptomycin. antibiotic duration depends of clinical picture. 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 Patient started on vancomycin and cefepime on 06/08 Since starting vancomycin patient's white blood cell count has improved from 15.1-10.9. Patient discontinued vancomycin on 06/20/17 Patient had repeat blood cultures drawn CvC, PICC and peripheral 06/10/17 all negative x6. PICC line culture of tip negative TTE: LVEF 65-70% mild tricuspid regurgiations, no vavular vegetations are noted EMILIE: LVEF 65%, normal LV size and function, right ventricle normal in size and systolic function, no pulmonary hypertension, no significant valvular dysfunction, no evidence for endocarditis visualized kidney function slightly worse today with serum creatinine 1.33 Repeat peripheral blood cultures 06/18/17, 06/19, 06/20, 07/19, 06/23, and 06/25 are negative for MRSA. Subclavian CVC has been removed. PICC has been placed in the right upper extremity: Repeat blood cultures ordered and preliminary results are negative for MRSA. Plan: continue daptomycin. (6) UTI (urinary tract infection) Current Visit: Yes Status: Acute 06/13 urine culture Hank albicans and glabrata harry d/c continue fluconazole Qualifiers: Urinary tract infection type: acute cystitis Hematuria presence: without hematuria Qualified Code(s): N30.00 - Acute cystitis without hematuria (7) Hypoxia Current Visit: Yes Status: Acute stable patient requiring O2 supplementation since being admitted O2 requirement 1-2 L on lung exam clear anteriorly CXR 06/10/17 negative for pleural effusion, consolidation. Free air under the right hemidiaphragm noted again unchanged. sob unchanged from yesterday plan as per primary (8) Acute worsening of stage 3 chronic kidney disease Current Visit: Yes Status: Acute Patient has developed acute kidney injury with serum creatinine 1.33 Current creatinine clearance of 89 (9) Hydronephrosis Current Visit: Yes Status: Acute Discovered on CT abdomen 06/02 which showed right hydroureter with right ureteritis and bilateral pyelitis Underwent on 06/04/17 right ureteral stent placement and left ureteral catheter placement by urology. Patient has had 2 urine cultures which have been negative for growth. Urinalysis does not indicate any signs of infection. Patient has a Harry catheter output of light red urine. Likely secondary to urologic procedure. Patient is on broad-spectrum antibiotics of daptomycin and cefepime which will cover urinary tract infection. Repeat CT abdomen and pelvis on 06/07 showed improvement of right hydronephrosis and stable stent placement. Repeat CT at 06/16/2017 shows worsening right hydronephrosis. Urology reports no additional intervention needed at this point. Qualifiers: Hydronephrosis type: other Qualified Code(s): N13.39 - Other hydronephrosis (10) Hypothyroidism Current Visit: Yes Status: Chronic As per primary Qualifiers: Hypothyroidism type: acquired Qualified Code(s): E03.9 - Hypothyroidism, unspecified (11) HTN (hypertension) Current Visit: Yes Status: Chronic controlled. Qualifiers: Hypertension type: essential hypertension Qualified Code(s): I10 - Essential (primary) hypertension (12) DVT prophylaxis Current Visit: Yes Status: Acute heparin SQ - Subjective Interval history: Patient seen and examined this morning. She is resting comfortably in bed and reports having mild fevers with no chills, rigors, or diaphoresis. She reports having some mild abdominal pain due to her recent surgery or reports having a good appetite without nausea or vomiting. EMILIE performed 06/25 was negative for endocarditis and showed normal heart function with EF 65%. Patient did develop leukocytosis on 06/26 of 11.8 which continue to increase on 06/27 to 16.1. Repeat CBC showed a white blood cell count of 15.3 today. Infect Dis PN-Objective Data - Labs CBC & Chem 7: 06/29/17 04:25 06/29/17 04:25 Labs: Laboratory Results - last 24 hr 06/26/17 06/26/17 06/26/17 07:14 11:11 16:54 WBC RBC Hgb Hct MCV MCH MCHC RDW Plt Count MPV Immature Gran % Seg Neutrophils % Lymphocytes % Monocytes % Eosinophils % Basophils % Neutrophils # Lymphocytes # Monocytes # Eosinophils # Basophils # Hypersegmented Neuts Platelet Estimate Sodium Potassium Chloride Carbon Dioxide BUN Creatinine Est GFR ( Amer) Est GFR (Non-Af Amer) BUN/Creatinine Ratio Glucose POC Glucose 102 H 111 H 113 H Calculated Osmolality Calcium 06/27/17 06/27/17 06/27/17 11:48 16:25 20:42 WBC RBC Hgb Hct MCV MCH MCHC RDW Plt Count MPV Immature Gran % Seg Neutrophils % Lymphocytes % Monocytes % Eosinophils % Basophils % Neutrophils # Lymphocytes # Monocytes # Eosinophils # Basophils # Hypersegmented Neuts Platelet Estimate Sodium Potassium Chloride Carbon Dioxide BUN Creatinine Est GFR ( Amer) Est GFR (Non-Af Amer) BUN/Creatinine Ratio Glucose POC Glucose 110 H 99 H 102 H Calculated Osmolality Calcium 06/28/17 06/28/17 06/28/17 03:10 03:10 06:25 WBC 15.3 H RBC 2.99 L Hgb 8.7 L Hct 27.9 L MCV 93.3 MCH 29.1 MCHC 31.2 L RDW 15.9 H Plt Count 319 MPV 9.3 L Immature Gran % 1.2 Seg Neutrophils % 63.4 Lymphocytes % 24.4 Monocytes % 10.0 Eosinophils % 0.7 Basophils % 0.3 Neutrophils # 9.7 H Lymphocytes # 3.7 Monocytes # 1.5 H Eosinophils # 0.1 Basophils # 0.1 Hypersegmented Neuts Present A Platelet Estimate Normal Sodium 133 L Potassium 4.0 Chloride 99 Carbon Dioxide 25 BUN 21 Creatinine 1.33 H Est GFR ( Amer) 49 L Est GFR (Non-Af Amer) 40 L BUN/Creatinine Ratio 16 Glucose 107 H POC Glucose 118 H Calculated Osmolality 279 L Calcium 8.2 L Cultures: Cultures 06/20/17 10:15 Blood Culture - Final Peripheral Central Cath, Picc Gram Negative Rip Hank glabrata 06/21/17 05:49 Blood Culture - Final Peripheral Venipuncture No growth. 06/25/17 21:55 Blood Culture - Preliminary Peripheral Venipuncture No growth. 06/23/17 10:40 Blood Culture - Preliminary Peripheral Venipuncture No growth. 06/19/17 11:35 Catheter Tip Culture - Final Intravenous or Arterial Cath Hank glabrata 06/21/17 04:40 Blood Culture - Final Central Venous Catheter Hank glabrata 06/19/17 09:12 Blood Culture - Final Central Venous Catheter Vancomycin Resistant Enterococcus faecium Hank glabrata Hank parapsilosis 06/20/17 10:06 Blood Culture - Final Peripheral Venipuncture Hank glabrata 06/18/17 08:41 Blood Culture - Final Peripheral Venipuncture Hank glabrata 06/19/17 00:26 Blood Culture - Final Peripheral Venipuncture Hank glabrata 06/19/17 00:20 Blood Culture - Final Peripheral Venipuncture Hank glabrata 06/18/17 10:44 Blood Culture - Final Peripheral Venipuncture Vancomycin Resistant Enterococcus faecium Hank glabrata 06/13/17 04:38 Urine Culture - Final Urine,[place] Hank glabrata Hank albicans 06/17/17 11:20 Body Fluid Culture - Final Other-Specify in Comments Hank albicans Methicillin Resistant S.aureus Enterococcus faecium 06/12/17 20:08 Blood Culture - Final Peripheral Venipuncture No growth. 06/10/17 05:45 Blood Culture - Final Peripheral Central Cath, Picc No growth. 06/10/17 05:41 Blood Culture - Final Peripheral Venipuncture No growth. 06/10/17 11:35 Blood Culture - Final Peripheral Central Cath, Picc No growth. 06/10/17 05:45 Blood Culture - Final Central Venous Catheter No growth. 06/10/17 05:46 Blood Culture - Final Peripheral Venipuncture No growth. 06/10/17 11:35 Blood Culture - Final Central Venous Catheter No growth. 06/10/17 16:40 Catheter Tip Culture - Final Intravenous or Arterial Cath No growth. 06/08/17 06:33 Blood Culture - Final Peripheral Central Cath, Picc Methicillin Resistant S.aureus 06/08/17 06:33 Blood Culture - Final Central Venous Catheter Methicillin Resistant S.aureus 06/08/17 04:20 Urine Culture - Final Urine,Clean [place] No significant growth. 06/03/17 09:25 Urine Culture - Final Urine,[place] No growth. 05/30/17 09:56 Blood Culture - Final Peripheral Venipuncture No growth. 05/30/17 10:10 Blood Culture - Final Peripheral Venipuncture No growth. Serology 06/21/17 06/20/17 06/19/17 Range/Units 04:40 10:15 16:10 Ur Specimen Adequacy Urine Color Yellow (Yellow) Urine Clarity Clear (Clear) Urine pH 6.5 (5.0-8.0) pH Units Ur Specific [place] 1.021 (1.010-1.025) Urine Protein 30 H (Neg-Trace) mg/dL Urine Glucose (UA) Normal (Normal) mg/dL Urine Ketones Negative (Negative) mg/dL Urine Blood Large H (Negative) Urine Nitrite Negative (Negative) Urine Bilirubin Negative (Negative) Urine Urobilinogen Normal (Normal) mg/dL Ur Leukocyte Esterase Negative (Negative) Urine Microscopic RBC 0-3 (0-3) per hpf Urine Microscopic WBC 0-3 (0-3) per hpf Ur Squamous Epith Cells Many H (None-Few) per lpf Urine Bacteria None Seen (None-Few) per hpf Hyaline Casts None Seen (None-Few) per lpf Ur Culture Indicated? NO (NO) A. baumannii (PCR) Not Detected Not Detected (Not Detect) Chlamy pneumoniae PCR (Not Detect) Adenovirus (PCR) (Not Detect) B. pertussis DNA (PCR) (Not Detect) B.parapertussis DNA PCR (Not Detect) Hank albicans (PCR) Not Detected Not Detected (Not Detect) C. glabrata (PCR) DETECTED A DETECTED A (Not Detect) C. krusei (PCR) Not Detected Not Detected (Not Detect) C. parapsilosis (PCR) Not Detected Not Detected (Not Detect) C. tropicalis (PCR) Not Detected Not Detected (Not Detect) Coronavirus OC43 (PCR) (Not Detect) Coronavirus HKU1 (PCR) (Not Detect) Coronavirus 229E (PCR) (Not Detect) Coronavirus NL63 (PCR) (Not Detect) Enterobacteriac sp PCR Not Detected DETECTED A (Not Detect) E. cloacae complex PCR Not Detected Not Detected (Not Detect) Enterococcus sp PCR Not Detected Not Detected (Not Detect) E. coli (PCR) Not Detected Not Detected (Not Detect) H. influenzae (PCR) Not Detected Not Detected (Not Detect) Human Metapneumovir PCR (Not Detect) Influenza A (H1) PCR (Not Detect) Influ A (H1N1/09) PCR (Not Detect) Influenza A (H3) PCR (Not Detect) Influenza A Untype (PCR) (Not Detect) Influenza Type B (PCR) (Not Detect) Klebsiella oxytoca PCR Not Detected Not Detected (Not Detect) Klebsiella pneumoniae Not Detected Not Detected (Not Detect) List. monocytogenes PCR Not Detected Not Detected (Not Detect) M.pneumoniae DNA (PCR) (Not Detect) N. meningitidis (PCR) Not Detected Not Detected (Not Detect) Parainfluenza 1 (PCR) (Not Detect) Parainfluenza 2 (PCR) (Not Detect) Parainfluenza 3 (PCR) (Not Detect) Parainfluenza 4 (PCR) (Not Detect) Proteus species (PCR) Not Detected DETECTED A (Not Detect) RSV (PCR) (Not Detect) Entero/Rhino (PCR) (Not Detect) Serratia marcescens PCR Not Detected Not Detected (Not Detect) Staphylococcus sp PCR Not Detected Not Detected (Not Detect) Staph aureus (PCR) Not Detected Not Detected (Not Detect) mecA-Methicil Res Gene Not Detected Not Detected (Not Detect) Streptococcus sp PCR Not Detected Not Detected (Not Detect) Group A Strep DNA Not Detected Not Detected (Not Detect) Group B Strep (PCR) Not Detected Not Detected (Not Detect) Strep pneumoniae (PCR) Not Detected Not Detected (Not Detect) P. aeruginosa (PCR) Not Detected Not Detected (Not Detect) Bryant/B-Vanco Res Genes Not Detected Not Detected (Not Detect) KPC (blaKPC) Detect PCR Not Detected Not Detected (Not Detect) 06/19/17 06/19/17 06/19/17 Range/Units 09:12 09:12 09:12 Ur Specimen Adequacy Urine Color (Yellow) Urine Clarity (Clear) Urine pH (5.0-8.0) pH Units Ur Specific [place] (1.010-1.025) Urine Protein (Neg-Trace) mg/dL Urine Glucose (UA) (Normal) mg/dL Urine Ketones (Negative) mg/dL Urine Blood (Negative) Urine Nitrite (Negative) Urine Bilirubin (Negative) Urine Urobilinogen (Normal) mg/dL Ur Leukocyte Esterase (Negative) Urine Microscopic RBC (0-3) per hpf Urine Microscopic WBC (0-3) per hpf Ur Squamous Epith Cells (None-Few) per lpf Urine Bacteria (None-Few) per hpf Hyaline Casts (None-Few) per lpf Ur Culture Indicated? (NO) A. baumannii (PCR) Not Detected Not Detected (Not Detect) Chlamy pneumoniae PCR Not Detected (Not Detect) Adenovirus (PCR) Not Detected (Not Detect) B. pertussis DNA (PCR) Not Detected (Not Detect) B.parapertussis DNA PCR Not Detected (Not Detect) Hank albicans (PCR) Not Detected Not Detected (Not Detect) C. glabrata (PCR) DETECTED A DETECTED A (Not Detect) C. krusei (PCR) Not Detected Not Detected (Not Detect) C. parapsilosis (PCR) Not Detected DETECTED A (Not Detect) C. tropicalis (PCR) Not Detected Not Detected (Not Detect) Coronavirus OC43 (PCR) Not Detected (Not Detect) Coronavirus HKU1 (PCR) Not Detected (Not Detect) Coronavirus 229E (PCR) Not Detected (Not Detect) Coronavirus NL63 (PCR) Not Detected (Not Detect) Enterobacteriac sp PCR Not Detected Not Detected (Not Detect) E. cloacae complex PCR Not Detected Not Detected (Not Detect) Enterococcus sp PCR Not Detected DETECTED A (Not Detect) E. coli (PCR) Not Detected Not Detected (Not Detect) H. influenzae (PCR) Not Detected Not Detected (Not Detect) Human Metapneumovir PCR Not Detected (Not Detect) Influenza A (H1) PCR Not Detected (Not Detect) Influ A (H1N1/09) PCR Not Detected (Not Detect) Influenza A (H3) PCR Not Detected (Not Detect) Influenza A Untype (PCR) Not Detected (Not Detect) Influenza Type B (PCR) Not Detected (Not Detect) Klebsiella oxytoca PCR Not Detected Not Detected (Not Detect) Klebsiella pneumoniae Not Detected Not Detected (Not Detect) List. monocytogenes PCR Not Detected Not Detected (Not Detect) M.pneumoniae DNA (PCR) Not Detected (Not Detect) N. meningitidis (PCR) Not Detected Not Detected (Not Detect) Parainfluenza 1 (PCR) Not Detected (Not Detect) Parainfluenza 2 (PCR) Not Detected (Not Detect) Parainfluenza 3 (PCR) Not Detected (Not Detect) Parainfluenza 4 (PCR) Not Detected (Not Detect) Proteus species (PCR) Not Detected Not Detected (Not Detect) RSV (PCR) Not Detected (Not Detect) Entero/Rhino (PCR) Not Detected (Not Detect) Serratia marcescens PCR Not Detected Not Detected (Not Detect) Staphylococcus sp PCR Not Detected Not Detected (Not Detect) Staph aureus (PCR) Not Detected Not Detected (Not Detect) mecA-Methicil Res Gene N/A N/A (Not Detect) Streptococcus sp PCR Not Detected Not Detected (Not Detect) Group A Strep DNA Not Detected Not Detected (Not Detect) Group B Strep (PCR) Not Detected Not Detected (Not Detect) Strep pneumoniae (PCR) Not Detected Not Detected (Not Detect) P. aeruginosa (PCR) Not Detected Not Detected (Not Detect) Bryant/B-Vanco Res Genes N/A DETECTED A (Not Detect) KPC (blaKPC) Detect PCR N/A N/A (Not Detect) 06/19/17 06/18/17 06/18/17 Range/Units 00:20 10:44 08:41 Ur Specimen Adequacy Urine Color (Yellow) Urine Clarity (Clear) Urine pH (5.0-8.0) pH Units Ur Specific [place] (1.010-1.025) Urine Protein (Neg-Trace) mg/dL Urine Glucose (UA) (Normal) mg/dL Urine Ketones (Negative) mg/dL Urine Blood (Negative) Urine Nitrite (Negative) Urine Bilirubin (Negative) Urine Urobilinogen (Normal) mg/dL Ur Leukocyte Esterase (Negative) Urine Microscopic RBC (0-3) per hpf Urine Microscopic WBC (0-3) per hpf Ur Squamous Epith Cells (None-Few) per lpf Urine Bacteria (None-Few) per hpf Hyaline Casts (None-Few) per lpf Ur Culture Indicated? (NO) A. baumannii (PCR) Not Detected Not Detected Not Detected (Not Detect) Chlamy pneumoniae PCR (Not Detect) Adenovirus (PCR) (Not Detect) B. pertussis DNA (PCR) (Not Detect) B.parapertussis DNA PCR (Not Detect) Hank albicans (PCR) Not Detected Not Detected Not Detected (Not Detect) C. glabrata (PCR) DETECTED A Not Detected DETECTED A (Not Detect ) C. krusei (PCR) Not Detected Not Detected Not Detected (Not Detect) C. parapsilosis (PCR) Not Detected Not Detected Not Detected (Not Detect) C. tropicalis (PCR) Not Detected Not Detected Not Detected (Not Detect) Coronavirus OC43 (PCR) (Not Detect) Coronavirus HKU1 (PCR) (Not Detect) Coronavirus 229E (PCR) (Not Detect) Coronavirus NL63 (PCR) (Not Detect) Enterobacteriac sp PCR Not Detected Not Detected Not Detected (Not Detect) E. cloacae complex PCR Not Detected Not Detected Not Detected (Not Detect) Enterococcus sp PCR Not Detected DETECTED A Not Detected (Not Detect) E. coli (PCR) Not Detected Not Detected Not Detected (Not Detect) H. influenzae (PCR) Not Detected Not Detected Not Detected (Not Detect) Human Metapneumovir PCR (Not Detect) Influenza A (H1) PCR (Not Detect) Influ A (H1N1/09) PCR (Not Detect) Influenza A (H3) PCR (Not Detect) Influenza A Untype (PCR) (Not Detect) Influenza Type B (PCR) (Not Detect) Klebsiella oxytoca PCR Not Detected Not Detected Not Detected (Not Detect) Klebsiella pneumoniae Not Detected Not Detected Not Detected (Not Detect) List. monocytogenes PCR Not Detected Not Detected Not Detected (Not Detect) M.pneumoniae DNA (PCR) (Not Detect) N. meningitidis (PCR) Not Detected Not Detected Not Detected (Not Detect) Parainfluenza 1 (PCR) (Not Detect) Parainfluenza 2 (PCR) (Not Detect) Parainfluenza 3 (PCR) (Not Detect) Parainfluenza 4 (PCR) (Not Detect) Proteus species (PCR) Not Detected Not Detected Not Detected (Not Detect) RSV (PCR) (Not Detect) Entero/Rhino (PCR) (Not Detect) Serratia marcescens PCR Not Detected Not Detected Not Detected (Not Detect) Staphylococcus sp PCR Not Detected Not Detected Not Detected (Not Detect) Staph aureus (PCR) Not Detected Not Detected Not Detected (Not Detect) mecA-Methicil Res Gene Not Detected N/A N/A (Not Detect) Streptococcus sp PCR Not Detected Not Detected Not Detected (Not Detect) Group A Strep DNA Not Detected Not Detected Not Detected (Not Detect) Group B Strep (PCR) Not Detected Not Detected Not Detected (Not Detect) Strep pneumoniae (PCR) Not Detected Not Detected Not Detected (Not Detect) P. aeruginosa (PCR) Not Detected Not Detected Not Detected (Not Detect) [place]/B-Vanco Res Genes Not Detected DETECTED A N/A (Not Detect) KPC (blaKPC) Detect PCR Not Detected N/A N/A (Not Detect) 06/08/17 06/08/17 Range/Units 06:33 04:20 Ur Specimen Adequacy Urine Color Dark Yellow (Yellow) Urine Clarity Clear (Clear) Urine pH 6.0 (5.0-8.0) pH Units Ur Specific [place] > 1.030 H (1.010-1.025) Urine Protein 100 H (Neg-Trace) mg/dL Urine Glucose (UA) 100 H (Normal) mg/dL Urine Ketones Negative (Negative) mg/dL Urine Blood Large H (Negative) Urine Nitrite Negative (Negative) Urine Bilirubin Negative (Negative) Urine Urobilinogen Normal (Normal) mg/dL Ur Leukocyte Esterase Small H (Negative) Urine Microscopic RBC (0-3) per hpf Urine Microscopic WBC (0-3) per hpf Ur Squamous Epith Cells (None-Few) per lpf Urine Bacteria (None-Few) per hpf Hyaline Casts (None-Few) per lpf Ur Culture Indicated? YES A (NO) A. baumannii (PCR) Not Detected (Not Detect) Chlamy pneumoniae PCR (Not Detect) Adenovirus (PCR) (Not Detect) B. pertussis DNA (PCR) (Not Detect) B.parapertussis DNA PCR (Not Detect) Hank albicans (PCR) Not Detected (Not Detect) C. glabrata (PCR) Not Detected (Not Detect) C. krusei (PCR) Not Detected (Not Detect) C. parapsilosis (PCR) Not Detected (Not Detect) C. tropicalis (PCR) Not Detected (Not Detect) Coronavirus OC43 (PCR) (Not Detect) Coronavirus HKU1 (PCR) (Not Detect) Coronavirus 229E (PCR) (Not Detect) Coronavirus NL63 (PCR) (Not Detect) Enterobacteriac sp PCR Not Detected (Not Detect) E. cloacae complex PCR Not Detected (Not Detect) Enterococcus sp PCR Not Detected (Not Detect) E. coli (PCR) Not Detected (Not Detect) H. influenzae (PCR) Not Detected (Not Detect) Human Metapneumovir PCR (Not Detect) Influenza A (H1) PCR (Not Detect) Influ A (H1N1/09) PCR (Not Detect) Influenza A (H3) PCR (Not Detect) Influenza A Untype (PCR) (Not Detect) Influenza Type B (PCR) (Not Detect) Klebsiella oxytoca PCR Not Detected (Not Detect) Klebsiella pneumoniae Not Detected (Not Detect) List. monocytogenes PCR Not Detected (Not Detect) M.pneumoniae DNA (PCR) (Not Detect) N. meningitidis (PCR) Not Detected (Not Detect) Parainfluenza 1 (PCR) (Not Detect) Parainfluenza 2 (PCR) (Not Detect) Parainfluenza 3 (PCR) (Not Detect) Parainfluenza 4 (PCR) (Not Detect) Proteus species (PCR) Not Detected (Not Detect) RSV (PCR) (Not Detect) Entero/Rhino (PCR) (Not Detect) Serratia marcescens PCR Not Detected (Not Detect) Staphylococcus sp PCR DETECTED A (Not Detect) Staph aureus (PCR) DETECTED A (Not Detect) mecA-Methicil Res Gene DETECTED A (Not Detect) Streptococcus sp PCR Not Detected (Not Detect) Group A Strep DNA Not Detected (Not Detect) Group B Strep (PCR) Not Detected (Not Detect) Strep pneumoniae (PCR) Not Detected (Not Detect) P. aeruginosa (PCR) Not Detected (Not Detect) Bryant/B-Vanco Res Genes Not Detected (Not Detect) KPC (blaKPC) Detect PCR Not Detected (Not Detect) - Impressions KUB X-Ray 06/04/17 18:14 IMPRESSION: 1. Right-sided PICC tip is in the expected location, superimposed over the lower superior vena cava. 2. There is a 2nd central venous catheter identified on the chest, with an unusual course, presumably a left subclavian catheter, with its tip superimposed over the upper superior vena cava. 3. No pneumothoraces. 4. Mild left patchy basilar airspace disease, atelectasis versus pneumonia versus asymmetric edema. 5. Right ureteral stent in place, with the pigtails in the expected location. D/ / Nestor Sue MD / Nestor Sue MD Interpreting Provider: Nestor Sue MD Echocardiogram 06/10/17 14:33 Impressions: Sinus tachycardia. LVEF 65-70%. Mild left ventricular diastolic dysfunction. Normal right ventricular structure and function. Mild tricuspid regurgitation. Probably mild hypertension, TR gradient 34 mmHg. IVC is not well visualized. Valvular vegetations are not appreciated on this study. Left Ventricular Wall Motion: Rest Echo Findings All wall segments showed normal motion. Findings: Study Quality * Technically adequate exam. ECG Findings * Sinus tachycardia. Left Ventricle * LVEF 65-70%. * Normal LV size and wall thickness. * Mild left ventricular diastolic dysfunction. Right Ventricle * Normal right ventricular structure and function. Left Atrium * Mildly dilated left atrium. Right Atrium * Normal right atrial size. Aortic Valve * No aortic regurgitation. * Trileaflet aortic valve. * No aortic stenosis. Mitral Valve * Normal mitral valve structure. * No mitral regurgitation. * No mitral stenosis. Tricuspid Valve * Tricuspid valve not well visualized. * Mild tricuspid regurgitation. Pulmonic Valve * Pulmonic valve is not well visualized. * No pulmonic stenosis. * No pulmonic regurgitation. Pulmonary Artery * Pulmonary artery not well visualized. Interatrial Septum * Interatrial septum not well evaluated. Needle Aspiration CT 06/17/17 00:00 IMPRESSION: 1. CT guided drainage of abdominal fluid collection as discussed above. D/ / Alvino Maradiaga MD / Alvino Maradiaga MD Interpreting Provider: Alvino Maradiaga MD Chest X-Ray 06/19/17 10:20 IMPRESSION: Mild right middle lobe opacity, for which atelectasis or pneumonitis could be considered. Follow-up to resolution suggested. D/ / Michael Taveras MD / Michael Taveras MD Interpreting Provider: Michael Taveras MD Abdomen/Pelvis CT 06/24/17 09:30 IMPRESSION: 1. Complete resolution of a previously demonstrated anterior intra-abdominal abscess following drain placement. The drain can likely be removed. 2. There are a few scattered small pockets of intra-abdominal fluid, all of which are slightly smaller from the previous examination. None of these are large enough for percutaneous drainage and continued CT follow-up is suggested. 3. Decreasing, predominantly air-filled, air-fluid collection within the soft tissues beneath the laparotomy site. 4. Unchanged moderate right hydronephrosis, with double J ureteral stent in place. D/ / 06/24/2017 11:34:54 Leland Santiago MD / abdirahman Interpreting Provider: Leland Santiago MD Exam - Constitutional Vitals: Temp Pulse Resp BP Pulse Ox 99.1 F 88 18 102/60 100 06/28/17 06:26 06/28/17 06:26 06/28/17 06:26 06/28/17 06:26 06/28/17 07:30 - Additional findings Additional findings: General: Cooperative, pleasant, no acute distress, alert and oriented 3, answers questions appropriately HEENT: Normocephalic, atraumatic, neck supple, trachea midline, Conjunctiva pink , sclera anicteric, oral mucosa moist, no orophargeal erythema or exudates Respiratory: No accessory muscle usage, clear to auscultation bilaterally, no wheezes/rhonchi/rales appreciated Cardiovascular: Regular rate and rhythm, S1 and S2 present, no murmurs/rubs/ gallops/clicks appreciated GI/abdominal: Nondistended, mild tenderness to palpation, soft, normal bowel sounds, no peritoneal signs, midline enedina from recent ciliotomy are clean, incision dry, nonerythematous, with no drainage present Extremities: No calf tenderness, mild nonpitting pedal edema appreciated, warm, lower extremity pulses palpable and symmetrical Neurological: Alert and oriented 3, no facial droop, no focal deficits Skin: Dry, intact, normal color - VTE Documentation of Mechanical Device: Intermittent pneumatic compression device Consult Discharge Plan - Plan Referrals: Kole Barksdale MD [Primary Care Provider] - Michele Machuca MD [Non-Partnered Physician] - - Attending Attestation I examined this patient and my medical decision-making was reviewed with the Resident Physician. I agree with the documented findings, disposition and treatment plan as described except to the extent set forth below.
--- NOTE | 2017-06-28 11:52 | Infectious Disease Progress No ---
Date of Encounter: 06/28/17 Time of Encounter: 11:20 Infect Dis PN-Objective Data - Labs CBC & Chem 7: 06/28/17 03:10 06/28/17 03:10 Labs: Laboratory Results - last 24 hr 06/26/17 06/26/17 06/26/17 07:14 11:11 16:54 WBC RBC Hgb Hct MCV MCH MCHC RDW Plt Count MPV Immature Gran % Seg Neutrophils % Lymphocytes % Monocytes % Eosinophils % Basophils % Neutrophils # Lymphocytes # Monocytes # Eosinophils # Basophils # Hypersegmented Neuts Platelet Estimate Sodium Potassium Chloride Carbon Dioxide BUN Creatinine Est GFR ( Amer) Est GFR (Non-Af Amer) BUN/Creatinine Ratio Glucose POC Glucose 102 H 111 H 113 H Calculated Osmolality Calcium 06/27/17 06/27/17 06/27/17 11:48 16:25 20:42 WBC RBC Hgb Hct MCV MCH MCHC RDW Plt Count MPV Immature Gran % Seg Neutrophils % Lymphocytes % Monocytes % Eosinophils % Basophils % Neutrophils # Lymphocytes # Monocytes # Eosinophils # Basophils # Hypersegmented Neuts Platelet Estimate Sodium Potassium Chloride Carbon Dioxide BUN Creatinine Est GFR ( Amer) Est GFR (Non-Af Amer) BUN/Creatinine Ratio Glucose POC Glucose 110 H 99 H 102 H Calculated Osmolality Calcium 06/28/17 06/28/17 06/28/17 03:10 03:10 06:25 WBC 15.3 H RBC 2.99 L Hgb 8.7 L Hct 27.9 L MCV 93.3 MCH 29.1 MCHC 31.2 L RDW 15.9 H Plt Count 319 MPV 9.3 L Immature Gran % 1.2 Seg Neutrophils % 63.4 Lymphocytes % 24.4 Monocytes % 10.0 Eosinophils % 0.7 Basophils % 0.3 Neutrophils # 9.7 H Lymphocytes # 3.7 Monocytes # 1.5 H Eosinophils # 0.1 Basophils # 0.1 Hypersegmented Neuts Present A Platelet Estimate Normal Sodium 133 L Potassium 4.0 Chloride 99 Carbon Dioxide 25 BUN 21 Creatinine 1.33 H Est GFR ( Amer) 49 L Est GFR (Non-Af Amer) 40 L BUN/Creatinine Ratio 16 Glucose 107 H POC Glucose 118 H Calculated Osmolality 279 L Calcium 8.2 L Cultures: Cultures 06/20/17 10:15 Blood Culture - Final Peripheral Central Cath, Picc Gram Negative Rip Jayna glabrata 06/21/17 05:49 Blood Culture - Final Peripheral Venipuncture No growth. 06/25/17 21:55 Blood Culture - Preliminary Peripheral Venipuncture No growth. 06/23/17 10:40 Blood Culture - Preliminary Peripheral Venipuncture No growth. 06/19/17 11:35 Catheter Tip Culture - Final Intravenous or Arterial Cath Jayna glabrata 06/21/17 04:40 Blood Culture - Final Central Venous Catheter Jayna glabrata 06/19/17 09:12 Blood Culture - Final Central Venous Catheter Vancomycin Resistant Enterococcus faecium Jayna glabrata Jayna parapsilosis 06/20/17 10:06 Blood Culture - Final Peripheral Venipuncture Jayna glabrata 06/18/17 08:41 Blood Culture - Final Peripheral Venipuncture Jayna glabrata 06/19/17 00:26 Blood Culture - Final Peripheral Venipuncture Jayna glabrata 06/19/17 00:20 Blood Culture - Final Peripheral Venipuncture Jayna glabrata 06/18/17 10:44 Blood Culture - Final Peripheral Venipuncture Vancomycin Resistant Enterococcus faecium Jayna glabrata 06/13/17 04:38 Urine Culture - Final Urine,[place] Jayna glabrata Jayna albicans 06/17/17 11:20 Body Fluid Culture - Final Other-Specify in Comments Jayna albicans Methicillin Resistant S.aureus Enterococcus faecium 06/12/17 20:08 Blood Culture - Final Peripheral Venipuncture No growth. 06/10/17 05:45 Blood Culture - Final Peripheral Central Cath, Picc No growth. 06/10/17 05:41 Blood Culture - Final Peripheral Venipuncture No growth. 06/10/17 11:35 Blood Culture - Final Peripheral Central Cath, Picc No growth. 06/10/17 05:45 Blood Culture - Final Central Venous Catheter No growth. 06/10/17 05:46 Blood Culture - Final Peripheral Venipuncture No growth. 06/10/17 11:35 Blood Culture - Final Central Venous Catheter No growth. 06/10/17 16:40 Catheter Tip Culture - Final Intravenous or Arterial Cath No growth. 06/08/17 06:33 Blood Culture - Final Peripheral Central Cath, Picc Methicillin Resistant S.aureus 06/08/17 06:33 Blood Culture - Final Central Venous Catheter Methicillin Resistant S.aureus 06/08/17 04:20 Urine Culture - Final Urine,Clean Catch No significant growth. 06/03/17 09:25 Urine Culture - Final Urine,[place] No growth. 05/30/17 09:56 Blood Culture - Final Peripheral Venipuncture No growth. 05/30/17 10:10 Blood Culture - Final Peripheral Venipuncture No growth. Serology 06/21/17 06/20/17 06/19/17 Range/Units 04:40 10:15 16:10 Ur Specimen Adequacy Urine Color Yellow (Yellow) Urine Clarity Clear (Clear) Urine pH 6.5 (5.0-8.0) pH Units Ur Specific [place] 1.021 (1.010-1.025) Urine Protein 30 H (Neg-Trace) mg/dL Urine Glucose (UA) Normal (Normal) mg/dL Urine Ketones Negative (Negative) mg/dL Urine Blood Large H (Negative) Urine Nitrite Negative (Negative) Urine Bilirubin Negative (Negative) Urine Urobilinogen Normal (Normal) mg/dL Ur Leukocyte Esterase Negative (Negative) Urine Microscopic RBC 0-3 (0-3) per hpf Urine Microscopic WBC 0-3 (0-3) per hpf Ur Squamous Epith Cells Many H (None-Few) per lpf Urine Bacteria None Seen (None-Few) per hpf Hyaline Casts None Seen (None-Few) per lpf Ur Culture Indicated? NO (NO) A. baumannii (PCR) Not Detected Not Detected (Not Detect) Chlamy pneumoniae PCR (Not Detect) Adenovirus (PCR) (Not Detect) B. pertussis DNA (PCR) (Not Detect) B.parapertussis DNA PCR (Not Detect) Jayna albicans (PCR) Not Detected Not Detected (Not Detect) C. glabrata (PCR) DETECTED A DETECTED A (Not Detect) C. krusei (PCR) Not Detected Not Detected (Not Detect) C. parapsilosis (PCR) Not Detected Not Detected (Not Detect) C. tropicalis (PCR) Not Detected Not Detected (Not Detect) Coronavirus OC43 (PCR) (Not Detect) Coronavirus HKU1 (PCR) (Not Detect) Coronavirus 229E (PCR) (Not Detect) Coronavirus NL63 (PCR) (Not Detect) Enterobacteriac sp PCR Not Detected DETECTED A (Not Detect) E. cloacae complex PCR Not Detected Not Detected (Not Detect) Enterococcus sp PCR Not Detected Not Detected (Not Detect) E. coli (PCR) Not Detected Not Detected (Not Detect) H. influenzae (PCR) Not Detected Not Detected (Not Detect) Human Metapneumovir PCR (Not Detect) Influenza A (H1) PCR (Not Detect) Influ A (H1N1/09) PCR (Not Detect) Influenza A (H3) PCR (Not Detect) Influenza A Untype (PCR) (Not Detect) Influenza Type B (PCR) (Not Detect) Klebsiella oxytoca PCR Not Detected Not Detected (Not Detect) Klebsiella pneumoniae Not Detected Not Detected (Not Detect) List. monocytogenes PCR Not Detected Not Detected (Not Detect) M.pneumoniae DNA (PCR) (Not Detect) N. meningitidis (PCR) Not Detected Not Detected (Not Detect) Parainfluenza 1 (PCR) (Not Detect) Parainfluenza 2 (PCR) (Not Detect) Parainfluenza 3 (PCR) (Not Detect) Parainfluenza 4 (PCR) (Not Detect) Proteus species (PCR) Not Detected DETECTED A (Not Detect) RSV (PCR) (Not Detect) Entero/Rhino (PCR) (Not Detect) Serratia marcescens PCR Not Detected Not Detected (Not Detect) Staphylococcus sp PCR Not Detected Not Detected (Not Detect) Staph aureus (PCR) Not Detected Not Detected (Not Detect) mecA-Methicil Res Gene Not Detected Not Detected (Not Detect) Streptococcus sp PCR Not Detected Not Detected (Not Detect) Group A Strep DNA Not Detected Not Detected (Not Detect) Group B Strep (PCR) Not Detected Not Detected (Not Detect) Strep pneumoniae (PCR) Not Detected Not Detected (Not Detect) P. aeruginosa (PCR) Not Detected Not Detected (Not Detect) Bryant/B-Vanco Res Genes Not Detected Not Detected (Not Detect) KPC (blaKPC) Detect PCR Not Detected Not Detected (Not Detect) 06/19/17 06/19/17 06/19/17 Range/Units 09:12 09:12 09:12 Ur Specimen Adequacy Urine Color (Yellow) Urine Clarity (Clear) Urine pH (5.0-8.0) pH Units Ur Specific [place] (1.010-1.025) Urine Protein (Neg-Trace) mg/dL Urine Glucose (UA) (Normal) mg/dL Urine Ketones (Negative) mg/dL Urine Blood (Negative) Urine Nitrite (Negative) Urine Bilirubin (Negative) Urine Urobilinogen (Normal) mg/dL Ur Leukocyte Esterase (Negative) Urine Microscopic RBC (0-3) per hpf Urine Microscopic WBC (0-3) per hpf Ur Squamous Epith Cells (None-Few) per lpf Urine Bacteria (None-Few) per hpf Hyaline Casts (None-Few) per lpf Ur Culture Indicated? (NO) A. baumannii (PCR) Not Detected Not Detected (Not Detect) Chlamy pneumoniae PCR Not Detected (Not Detect) Adenovirus (PCR) Not Detected (Not Detect) B. pertussis DNA (PCR) Not Detected (Not Detect) B.parapertussis DNA PCR Not Detected (Not Detect) Jayna albicans (PCR) Not Detected Not Detected (Not Detect) C. glabrata (PCR) DETECTED A DETECTED A (Not Detect) C. krusei (PCR) Not Detected Not Detected (Not Detect) C. parapsilosis (PCR) Not Detected DETECTED A (Not Detect) C. tropicalis (PCR) Not Detected Not Detected (Not Detect) Coronavirus OC43 (PCR) Not Detected (Not Detect) Coronavirus HKU1 (PCR) Not Detected (Not Detect) Coronavirus 229E (PCR) Not Detected (Not Detect) Coronavirus NL63 (PCR) Not Detected (Not Detect) Enterobacteriac sp PCR Not Detected Not Detected (Not Detect) E. cloacae complex PCR Not Detected Not Detected (Not Detect) Enterococcus sp PCR Not Detected DETECTED A (Not Detect) E. coli (PCR) Not Detected Not Detected (Not Detect) H. influenzae (PCR) Not Detected Not Detected (Not Detect) Human Metapneumovir PCR Not Detected (Not Detect) Influenza A (H1) PCR Not Detected (Not Detect) Influ A (H1N1/09) PCR Not Detected (Not Detect) Influenza A (H3) PCR Not Detected (Not Detect) Influenza A Untype (PCR) Not Detected (Not Detect) Influenza Type B (PCR) Not Detected (Not Detect) Klebsiella oxytoca PCR Not Detected Not Detected (Not Detect) Klebsiella pneumoniae Not Detected Not Detected (Not Detect) List. monocytogenes PCR Not Detected Not Detected (Not Detect) M.pneumoniae DNA (PCR) Not Detected (Not Detect) N. meningitidis (PCR) Not Detected Not Detected (Not Detect) Parainfluenza 1 (PCR) Not Detected (Not Detect) Parainfluenza 2 (PCR) Not Detected (Not Detect) Parainfluenza 3 (PCR) Not Detected (Not Detect) Parainfluenza 4 (PCR) Not Detected (Not Detect) Proteus species (PCR) Not Detected Not Detected (Not Detect) RSV (PCR) Not Detected (Not Detect) Entero/Rhino (PCR) Not Detected (Not Detect) Serratia marcescens PCR Not Detected Not Detected (Not Detect) Staphylococcus sp PCR Not Detected Not Detected (Not Detect) Staph aureus (PCR) Not Detected Not Detected (Not Detect) mecA-Methicil Res Gene N/A N/A (Not Detect) Streptococcus sp PCR Not Detected Not Detected (Not Detect) Group A Strep DNA Not Detected Not Detected (Not Detect) Group B Strep (PCR) Not Detected Not Detected (Not Detect) Strep pneumoniae (PCR) Not Detected Not Detected (Not Detect) P. aeruginosa (PCR) Not Detected Not Detected (Not Detect) Bryant/B-Vanco Res Genes N/A DETECTED A (Not Detect) KPC (blaKPC) Detect PCR N/A N/A (Not Detect) 06/19/17 06/18/17 06/18/17 Range/Units 00:20 10:44 08:41 Ur Specimen Adequacy Urine Color (Yellow) Urine Clarity (Clear) Urine pH (5.0-8.0) pH Units Ur Specific [place] (1.010-1.025) Urine Protein (Neg-Trace) mg/dL Urine Glucose (UA) (Normal) mg/dL Urine Ketones (Negative) mg/dL Urine Blood (Negative) Urine Nitrite (Negative) Urine Bilirubin (Negative) Urine Urobilinogen (Normal) mg/dL Ur Leukocyte Esterase (Negative) Urine Microscopic RBC (0-3) per hpf Urine Microscopic WBC (0-3) per hpf Ur Squamous Epith Cells (None-Few) per lpf Urine Bacteria (None-Few) per hpf Hyaline Casts (None-Few) per lpf Ur Culture Indicated? (NO) A. baumannii (PCR) Not Detected Not Detected Not Detected (Not Detect) Chlamy pneumoniae PCR (Not Detect) Adenovirus (PCR) (Not Detect) B. pertussis DNA (PCR) (Not Detect) B.parapertussis DNA PCR (Not Detect) Jayna albicans (PCR) Not Detected Not Detected Not Detected (Not Detect) C. glabrata (PCR) DETECTED A Not Detected DETECTED A (Not Detect ) C. krusei (PCR) Not Detected Not Detected Not Detected (Not Detect) C. parapsilosis (PCR) Not Detected Not Detected Not Detected (Not Detect) C. tropicalis (PCR) Not Detected Not Detected Not Detected (Not Detect) Coronavirus OC43 (PCR) (Not Detect) Coronavirus HKU1 (PCR) (Not Detect) Coronavirus 229E (PCR) (Not Detect) Coronavirus NL63 (PCR) (Not Detect) Enterobacteriac sp PCR Not Detected Not Detected Not Detected (Not Detect) E. cloacae complex PCR Not Detected Not Detected Not Detected (Not Detect) Enterococcus sp PCR Not Detected DETECTED A Not Detected (Not Detect) E. coli (PCR) Not Detected Not Detected Not Detected (Not Detect) H. influenzae (PCR) Not Detected Not Detected Not Detected (Not Detect) Human Metapneumovir PCR (Not Detect) Influenza A (H1) PCR (Not Detect) Influ A (H1N1/09) PCR (Not Detect) Influenza A (H3) PCR (Not Detect) Influenza A Untype (PCR) (Not Detect) Influenza Type B (PCR) (Not Detect) Klebsiella oxytoca PCR Not Detected Not Detected Not Detected (Not Detect) Klebsiella pneumoniae Not Detected Not Detected Not Detected (Not Detect) List. monocytogenes PCR Not Detected Not Detected Not Detected (Not Detect) M.pneumoniae DNA (PCR) (Not Detect) N. meningitidis (PCR) Not Detected Not Detected Not Detected (Not Detect) Parainfluenza 1 (PCR) (Not Detect) Parainfluenza 2 (PCR) (Not Detect) Parainfluenza 3 (PCR) (Not Detect) Parainfluenza 4 (PCR) (Not Detect) Proteus species (PCR) Not Detected Not Detected Not Detected (Not Detect) RSV (PCR) (Not Detect) Entero/Rhino (PCR) (Not Detect) Serratia marcescens PCR Not Detected Not Detected Not Detected (Not Detect) Staphylococcus sp PCR Not Detected Not Detected Not Detected (Not Detect) Staph aureus (PCR) Not Detected Not Detected Not Detected (Not Detect) mecA-Methicil Res Gene Not Detected N/A N/A (Not Detect) Streptococcus sp PCR Not Detected Not Detected Not Detected (Not Detect) Group A Strep DNA Not Detected Not Detected Not Detected (Not Detect) Group B Strep (PCR) Not Detected Not Detected Not Detected (Not Detect) Strep pneumoniae (PCR) Not Detected Not Detected Not Detected (Not Detect) P. aeruginosa (PCR) Not Detected Not Detected Not Detected (Not Detect) Bryant/B-Vanco Res Genes Not Detected DETECTED A N/A (Not Detect) KPC (blaKPC) Detect PCR Not Detected N/A N/A (Not Detect) 06/08/17 06/08/17 Range/Units 06:33 04:20 Ur Specimen Adequacy Urine Color Dark Yellow (Yellow) Urine Clarity Clear (Clear) Urine pH 6.0 (5.0-8.0) pH Units Ur Specific [place] > 1.030 H (1.010-1.025) Urine Protein 100 H (Neg-Trace) mg/dL Urine Glucose (UA) 100 H (Normal) mg/dL Urine Ketones Negative (Negative) mg/dL Urine Blood Large H (Negative) Urine Nitrite Negative (Negative) Urine Bilirubin Negative (Negative) Urine Urobilinogen Normal (Normal) mg/dL Ur Leukocyte Esterase Small H (Negative) Urine Microscopic RBC (0-3) per hpf Urine Microscopic WBC (0-3) per hpf Ur Squamous Epith Cells (None-Few) per lpf Urine Bacteria (None-Few) per hpf Hyaline Casts (None-Few) per lpf Ur Culture Indicated? YES A (NO) A. baumannii (PCR) Not Detected (Not Detect) Chlamy pneumoniae PCR (Not Detect) Adenovirus (PCR) (Not Detect) B. pertussis DNA (PCR) (Not Detect) B.parapertussis DNA PCR (Not Detect) Jayna albicans (PCR) Not Detected (Not Detect) C. glabrata (PCR) Not Detected (Not Detect) C. krusei (PCR) Not Detected (Not Detect) C. parapsilosis (PCR) Not Detected (Not Detect) C. tropicalis (PCR) Not Detected (Not Detect) Coronavirus OC43 (PCR) (Not Detect) Coronavirus HKU1 (PCR) (Not Detect) Coronavirus 229E (PCR) (Not Detect) Coronavirus NL63 (PCR) (Not Detect) Enterobacteriac sp PCR Not Detected (Not Detect) E. cloacae complex PCR Not Detected (Not Detect) Enterococcus sp PCR Not Detected (Not Detect) E. coli (PCR) Not Detected (Not Detect) H. influenzae (PCR) Not Detected (Not Detect) Human Metapneumovir PCR (Not Detect) Influenza A (H1) PCR (Not Detect) Influ A (H1N1/09) PCR (Not Detect) Influenza A (H3) PCR (Not Detect) Influenza A Untype (PCR) (Not Detect) Influenza Type B (PCR) (Not Detect) Klebsiella oxytoca PCR Not Detected (Not Detect) Klebsiella pneumoniae Not Detected (Not Detect) List. monocytogenes PCR Not Detected (Not Detect) M.pneumoniae DNA (PCR) (Not Detect) N. meningitidis (PCR) Not Detected (Not Detect) Parainfluenza 1 (PCR) (Not Detect) Parainfluenza 2 (PCR) (Not Detect) Parainfluenza 3 (PCR) (Not Detect) Parainfluenza 4 (PCR) (Not Detect) Proteus species (PCR) Not Detected (Not Detect) RSV (PCR) (Not Detect) Entero/Rhino (PCR) (Not Detect) Serratia marcescens PCR Not Detected (Not Detect) Staphylococcus sp PCR DETECTED A (Not Detect) Staph aureus (PCR) DETECTED A (Not Detect) mecA-Methicil Res Gene DETECTED A (Not Detect) Streptococcus sp PCR Not Detected (Not Detect) Group A Strep DNA Not Detected (Not Detect) Group B Strep (PCR) Not Detected (Not Detect) Strep pneumoniae (PCR) Not Detected (Not Detect) P. aeruginosa (PCR) Not Detected (Not Detect) Bryant/B-Vanco Res Genes Not Detected (Not Detect) KPC (blaKPC) Detect PCR Not Detected (Not Detect) Exam - Constitutional Vitals: Temp Pulse Resp BP Pulse Ox 99.4 F 97 16 119/74 93 06/28/17 11:22 06/28/17 11:22 06/28/17 11:22 06/28/17 11:22 06/28/17 11:22 - VTE Documentation of Mechanical Device: Intermittent pneumatic compression device Consult Discharge Plan - Plan Referrals: Kole Barksdale MD [Primary Care Provider] - Michele Machuca MD [Non-Partnered Physician] -
[2017-06-28] MEDS ORDERED: Acetaminophen 325 MG TABLET PO PRN (15:25)
[2017-06-28] MEDS: DAPTOMYCIN IVPB SCH (16:55)
[2017-06-28] MEDS: SODIUM CHLORIDE 0.9% IVPB SCH (16:55)
[2017-06-28] MEDS: Fluconazole 400 MG/200 ML 400 MG/200 ML BAG IVPB SCH (16:56)
[2017-06-28] MEDS: traZODone 50 MG TABLET PO SCH (20:11)
--- NOTE | 2017-06-28 20:13 | General Surgery Progress Note ---
Date of Encounter: 06/28/17 Time of Encounter: 19:00 Subjective Patient reports: no new complaints (patient feeling well, no complaints abd pain or nausea) Narrative: General Surgery - patient feeling well, voicing no complaints Patient with low-grade fever to 100.4 around 1320 hrs; pulse 85-97, respirations 16-18, hemodynamically stable blood pressure 120/82 Lungs: Clear; no abdominal pain with deep inspiration Abdomen: Soft, nontender. Midline incision clean and dry - no erythema, induration or drainage. 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 CT completed 06/24/17 reviewed. No new clinical findings pertinent to the low- grade fever and leukocytosis Discussed with Dr. Mauricio Will continue to monitor; repeat labs in AM. Continue ATB. Decreased renal function concerning. Will give fluid bolus tonigjt Objective Vital Signs - Last 8 Hours Temp Pulse Resp BP Pulse Ox 06/28/17 14:18 98.7 F 85 18 120/82 96 06/28/17 13:21 100.4 F H Intake and Output 06/28/17 06/28/17 06/28/17 07:59 15:59 23:59 Intake Total 500 / 500 1320 / 1320 0 / 0 Output Total 0 / 0 575 / 575 Balance 500 / 500 745 / 745 0 / 0 Intake: IV Fluids 320 / 320 100 / 100 Maxipime 2,000 MG In Water for 20 / 20 inj. (sterile) 20 ML @ 300 mls/ hr IVP Q12H [facility] Rx#:[id number] Diflucan Premix 400 MG/200 ML 200 / 200 400 mg In 200 ml @ 200 mls/hr IVPB Q24H [facility] Rx#:[id number] Flagyl Premix 500 MG/100 ML 500 100 / 100 100 / 100 mg In 100 ml @ 100 mls/hr IVPB Q8HR [facility] Rx#:[id number] Oral 180 / 180 720 / 720 0 / 0 Free Water 500 / 500 Output: Urine 0 / 0 575 / 575 Other: Meal Lunch Dinner Percent of Meal Consumed 100% 15% Stool Size Small Stool Consistency loose liquid Stool Color Brown # Voids 1 # Bowel Movement Diapers 1 Blood Glucose* 118 99 - Labs 06/28/17 03:10 06/28/17 03:10 Diabetes panel 06/28/17 Range/Units 03:10 Sodium 133 L (136-145) mEq/L Potassium 4.0 (3.5-5.1) mEq/L Chloride 99 (98-107) mEq/L Carbon Dioxide 25 (23-29) mEq/L BUN 21 (8-23) mg/dL Creatinine 1.33 H (0.60-1.20) mg/dL Glucose 107 H (70-105) mg/dL Calcium 8.2 L (8.6-10.3) mg/dL Calcium panel 06/28/17 Range/Units 03:10 Calcium 8.2 L (8.6-10.3) mg/dL Pituitary panel 06/28/17 Range/Units 03:10 Sodium 133 L (136-145) mEq/L Potassium 4.0 (3.5-5.1) mEq/L Chloride 99 (98-107) mEq/L Carbon Dioxide 25 (23-29) mEq/L BUN 21 (8-23) mg/dL Creatinine 1.33 H (0.60-1.20) mg/dL Glucose 107 H (70-105) mg/dL Calcium 8.2 L (8.6-10.3) mg/dL Adrenal panel 06/28/17 Range/Units 03:10 Sodium 133 L (136-145) mEq/L Potassium 4.0 (3.5-5.1) mEq/L Chloride 99 (98-107) mEq/L Carbon Dioxide 25 (23-29) mEq/L BUN 21 (8-23) mg/dL Creatinine 1.33 H (0.60-1.20) mg/dL Glucose 107 H (70-105) mg/dL Calcium 8.2 L (8.6-10.3) mg/dL - VTE Documentation of Mechanical Device: Intermittent pneumatic compression device Consult Discharge Plan - Plan Referrals: Kole Barksdale MD [Primary Care Provider] - Michele Machuca MD [Non-Partnered Physician] -
[2017-06-28] MEDS ORDERED: D5% in Lactated Ringers 500 ML IV SOLUTION IVC ONE (20:17)
[2017-06-28] MEDS ORDERED: D5% in Lactated Ringers 500 ML IVC ONE (20:45)
[2017-06-29] MEDS: Ondansetron 4 MG/2 ML VIAL IVP PRN ×2 (03:26→12:51)
[2017-06-29] MEDS: Cefepime HCl 2,000 MG in Water for inj. (sterile) 20 ML 20 ML IVP SCH ×2 (03:26→15:34)
[2017-06-29] MEDS: *HR* OxyCODONE/APAP 10/325 TABLET PO PRN ×4 (03:26→21:13)
[2017-06-29 04:50] LABS: Basophils % 0.3 %; Eosinophils # 0.1 K/mcL (0.0-0.6); Eosinophils % 0.8 %; Hematocrit 25.4 % (35.3-44.9); Immature Granulocytes % 0.7 % (0-4); Lymphocytes # 2.3 K/mcL (0.6-4.6); Lymphocytes % 19.7 %; Mean Corpuscular HGB Conc 31.5 g/dL (31.6-35.5); Mean Corpuscular Hemoglobin 28.9 pg (28.0-33.3); Mean Corpuscular Volume 91.7 fL (83.0-100.0); Monocytes # 1.1 K/mcL (0.0-1.3); Monocytes % 9.5 %; Neutrophils # 7.9 K/mcL (1.6-8.9); Platelet Count 293 K/mcL (140-400); Red Blood Count 2.77 M/mcL (3.82-4.97); Red Cell Distribution Width 15.9 % (11.5-14.5)
[2017-06-29 05:16] LABS: Platelet Estimate Normal (Normal); Reactive Lymphocytes Present (Not Present)
[2017-06-29 05:19] LABS: Calcium 7.8 mg/dL (8.6-10.3); Carbon Dioxide 24 mEq/L (23-29); Chloride 103 mEq/L (98-107); Potassium 3.8 mEq/L (3.5-5.1); Sodium 133 mEq/L (136-145)
[2017-06-29 05:25] LABS: BUN/Creatinine Ratio 14 (6-26); Blood Urea Nitrogen 15 mg/dL (8-23); Glucose 103 mg/dL (70-105); Osmolality,Calculated 277 (280-300); eGFR For African Americans > 60 (> 60); eGFR For Non-African Americans 51 (> 60)
[2017-06-29] MEDS: *HR* Heparin 5,000 UNIT/ML VIAL SQ SCH ×2 (05:40→17:13)
[2017-06-29] MEDS: Insulin LISPRO 300 UNITS/3 ML VIAL SQ SCH ×2 (08:59→12:00)
[2017-06-29] MEDS: MetroNIDAZOLE 500 MG/100 ML 500 MG/100 ML BAG IVPB SCH ×2 (09:04→15:34)
--- NOTE | 2017-06-29 09:26 | Physician Discharge Referral ---
- Diagnosis (1) Anemia Status: Chronic (2) Abdominal abscess Status: Resolved (3) MRSA bacteremia Status: Resolved (4) Perforated diverticulum Status: Acute (5) UTI (urinary tract infection) Status: Acute (6) VRE bacteremia Status: Resolved (7) HTN (hypertension) Status: Chronic (8) Hypothyroidism Status: Chronic (9) Morbid obesity with BMI of 45.0-49.9, adult Status: Chronic (10) Sepsis Status: Resolved (11) Acute respiratory failure with hypoxia Status: Resolved (12) Depression Status: Acute (13) Hydronephrosis Status: Acute - Respiratory Orders Smoking Cessation: Smoking cessation has been advised. For more information, call the [place] [employer] Quit Line at [phone]-NOW. - Transfer Medications Home Medications: Cyclobenzaprine [Flexeril] 10 mg PO TID PRN 05/29/17 [History] Ergocalciferol (VITAMIN D2) [Vitamin D2] 50,000 unit PO MO 05/29/17 [History] Furosemide [Lasix] 20 mg PO DAILY 05/29/17 [History] Levothyroxine [Synthroid] 50 mcg PO DAILY 05/29/17 [History] Losartan [Cozaar] 25 mg PO DAILY 05/29/17 [History] Oxycodone HCl/Acetaminophen [Percocet 10-325 mg Tablet] 1 each PO Q4-6H PRN [History] Potassium Chloride [K-Tab ER] 10 meq PO DAILY 05/29/17 [History] Ranitidine HCl [Acid Freelance Writer] 150 mg PO BID 05/29/17 [History] Aspirin Enteric Coated [Aspirin EC] 81 mg PO DAILY 05/31/17 [History] Allergies/Adverse Reactions: 3 Allergy/AdvReac Type Severity Reaction Status Date / Time Penicillins Allergy Hives Verified 05/29/17 08:23 Sulfa (Sulfonamide Allergy Hives Verified 05/29/17 08:23 Antibiotics) Certification: Further, I certify that my clinical findings support that this patient is homebound (i.e. absences from home require considerable and taxing effort and are for medical reasons or latter day services or infrequently or short duration when for other reasons) because: Attestation: My signature below is to certify that this patient is under my care and that I, or nurse practitioner, or a physician's administrative assistant data entry working with me, has a face-to -face encounter with this patient.
--- NOTE | 2017-06-29 09:26 | Discharge Summary ---
Date of Encounter: 06/29/17 Time of Encounter: 12:29 - Discharge Diagnosis (1) Anemia Priority: Primary Status: Chronic Qualifiers: Anemia type: unspecified type Qualified Code(s): D64.9 - Anemia, unspecified (2) Abdominal abscess Priority: Primary Status: Resolved (3) MRSA bacteremia Priority: Primary Status: Resolved (4) Perforated diverticulum Priority: Primary Status: Resolved (5) UTI (urinary tract infection) Priority: Primary Status: Acute Qualifiers: Urinary tract infection type: acute cystitis Hematuria presence: without hematuria Qualified Code(s): N30.00 - Acute cystitis without hematuria (6) VRE bacteremia Priority: Primary Status: Resolved (7) HTN (hypertension) Priority: Secondary Status: Chronic Qualifiers: Hypertension type: essential hypertension Qualified Code(s): I10 - Essential (primary) hypertension (8) Hypothyroidism Priority: Secondary Status: Chronic Qualifiers: Hypothyroidism type: acquired Qualified Code(s): E03.9 - Hypothyroidism, unspecified (9) Morbid obesity with BMI of 45.0-49.9, adult Priority: Secondary Status: Chronic (10) Sepsis Priority: Primary Status: Resolved Qualifiers: Sepsis type: methicillin resistant Staphylococcus aureus Qualified Code(s) : A41.02 - Sepsis due to Methicillin resistant Staphylococcus aureus (11) Acute respiratory failure with hypoxia Priority: Primary Status: Resolved (12) Depression Priority: Secondary Status: Chronic Qualifiers: Depression Type: unspecified Qualified Code(s): F32.9 - Major depressive disorder, single episode, unspecified (13) Hydronephrosis Priority: Primary Status: Acute Qualifiers: Hydronephrosis type: other Qualified Code(s): N13.39 - Other hydronephrosis - Discharge Medications Home Medications: Cyclobenzaprine [Flexeril] 10 mg PO TID PRN 05/29/17 [History] Ergocalciferol (VITAMIN D2) [Vitamin D2] 50,000 unit PO MO 05/29/17 [History] Furosemide [Lasix] 20 mg PO DAILY 05/29/17 [History] Levothyroxine [Synthroid] 50 mcg PO DAILY 05/29/17 [History] Losartan [Cozaar] 25 mg PO DAILY 05/29/17 [History] Oxycodone HCl/Acetaminophen [Percocet 10-325 mg Tablet] 1 each PO Q4-6H PRN [History] Potassium Chloride [K-Tab ER] 10 meq PO DAILY 05/29/17 [History] Ranitidine HCl [Acid Hurricane Tracker] 150 mg PO BID 05/29/17 [History] Aspirin Enteric Coated [Aspirin EC] 81 mg PO DAILY 05/31/17 [History] Allergies/Adverse Reactions: 3 Allergy/AdvReac Type Severity Reaction Status Date / Time Penicillins Allergy Hives Verified 05/29/17 08:23 Sulfa (Sulfonamide Allergy Hives Verified 05/29/17 08:23 Antibiotics) Date of admission: 05/29/17 14:31 Primary care physician: Kole Barksdale MD Consults: 06/02/17 15:02 Consult to Nutrition [CONS] Routine Comment: discussed with Rupinder Consulting Provider: NUTRITION Reason for Dietary Consult: TPN Start and Manage 06/02/17 15:23 Consult to Urology [CONS] Routine Consulting Provider: Urology Brianna Reason for Consult: interval development right hydronephrosis - history perforated sigmoid diverticulitis with pelvic inflammation. Time Notified: 15:23 Call Completed: Yes 06/10/17 08:20 Consult to Infectious Diseases [CONS] Routine Consulting Provider: Infectious Disease [place] Reason for Consult: MRSA bacteremia. Time Notified: 08:15 Call Completed: Yes 06/15/17 08:26 Consult to Occupational Therapy [CONS] Routine Comment: Evaluate, develop and implement POC Reason for Consult: may need home health/rehab upon discharge Consult to Physical Therapy [CONS] Routine Comment: Evaluate, develop and implement POC Reason for Consult: may need home health/rehab upon discharge Consult to Research Professor [CONS] Routine Reason for SW Consult: may need home health/rehab upon discharge 06/16/17 16:26 Consult to Interventional Radiology [CONS] Routine Consulting Provider: Radiology Interventional [place] Reason for Consult: enlarging intra abd abscess Time Notified: 16:26 Call Completed: Yes 06/18/17 11:07 Consult to Invasive Line Access Team [CONS] Routine Reason for Consult: Insertion PICC Line Type: PICC PICC line indications: halfway Med/Antibiotic Time Notified: 11:08 Call Completed: Yes 06/25/17 07:31 Consult to Physician [CONS] Routine Consulting Provider: Yoan Maravilla Reason for Consult: Fungemia Call Completed: Yes 06/26/17 10:25 Consult to Invasive Line Access Team [CONS] Routine Reason for Consult: home IV antibiotics Line Type: EPIV 06/28/17 07:39 PICC LINE [Consult to Invasive Line Access Team] [CONS] Routine Reason for Consult: Prolonged antibiotics Line Type: PICC Discharging clinician: Ravi York Anticipated date of discharge: 06/29/17 - Patient Status Condition: Fair - Discharge Instructions Follow Up With: Kole Barksdale MD [Primary Care Provider] - Michele Machuca MD [Non-Partnered Physician] - Hospital course: Ms. Mitchell is a 61 year old female Seen and examined at bedside Hospital day 31 She is a 61 F who was admitted on 05/29/17 for management of perforated sigmoid diverticulitis and pneumoperitoneum. She has a PMH of HTN, Hypothyroidism, chronic pain syndrome on pain meds. Incidental finding of R hydronephrosis on CT scan. She was reviewed by surgery same day and initially managed conservatively. On , she went to surgery -and had Cystoscopy and right 4.8 x 26 cm ureteral stent placement and left ureteral catheter placement, as well as exploratory celiotomy, sigmoid colectomy with stapled colo colonic anastomosis. on POD 3, she developed new signs of sepsis with fever and leukocytosis, at that time, Repeat abdominal CT 06/02/17 showing 1.17 cm x 3.9 cm x 2.7 cm abscess inferior to the proximal sigmoid colon, increased inflammation of the mesentery, new minimal right hydronephrosis suggestive of uriritis. Antibiotics were broadened to include coverage for MRSA with Vancomycin added to her original regimen of cefepime and Flagyl. She was also transferred to the MICU for close monitoring She developed fever of 102.1 on 06/11/17 and primary team started patient on Micafungin 100mg daily. CT abdomen/pelvis same day showed increasing fluid collections along abdominal incision, and multiloculated fluid loculations throughout the abdomen and pelvis increased in size and organizing, decreased pneumoperitoneum 06/14/18 micafungin d/c and patient started on diflucan CT notes increased size of abscess to drain 10.7 cm within the abdomen. Worsening right hydronephrosis. An worsening seroma below incision measuring 4.1 x 5.6 cm. s/p percutaneous drainage of abdominal abscess by IR 06/17/2017: Cultures have grown MRSA, VRE, pansensitive Jayna albicans Since then, repeat blood cultures : 06/18/17 peripheral blood cultures grew yeast (2/2 cultures) and VRE (1/2 cultures) 06/19/17 peripheral cultures growing yeast and VRE -drawn from CVC 06/19/17 central venous catheter tip culture preliminary negative 06/20/17 blood cultures -source were peripheral, CVC and PICC line: GNR, C. galbrata 06/21/17 blood culture . C. galbrata from CVC 06/21/17: Peripehral access . 1 bottle prelim negative 06/23/17: peripheral blood culture negative so far 06/25/17: Negative no growth Repeat abdomen CT done 06/24 showed improvement Drain removed 06/24/17 PICC line was discontinued 06/24/17 EMILIE done 06/25 shows no vegetations Ophthamologist Dr. Maravilla did review the patient and recommended continued management, no evidence of endophthalmitis on dilated eye exam Patient's renal function slightly worsened on 06/28 but responded appropriately to IVF hydration, she also developed a new leukocytosis which is resolving. She is again seen and examined at the bedside today A new PICC line was placed 06/28/17 and I believe it is the right time to discharge the patient home on IV antibiotics as recommended by the Infectious disease team, she will need PTOT at home, as well as nursing for line care and infusion, appropriate follow ups with her PCP, Infectious disease tem and surgery - Time Spent with Patient Total time spent providing and/or coordinating discharge services: Greater than 30 minutes - Constitutional Vitals: Temp Pulse Resp BP Pulse Ox 98.5 F 90 18 121/63 96 06/29/17 08:32 06/29/17 08:32 06/29/17 08:32 06/29/17 08:32 06/29/17 08:32 General appearance: Present: cooperative, A&O X 3, morbidly obese, pleasant, no acute distress, answers questions appropriately - Head Head exam: Present: atraumatic, normocephalic - Eye Eye exam: Present: PERRL, conjuntiva pink, sclera anicteric Pupils: Present: PERRL - Neck Neck exam general surgery: Present: supple, trachea midline. Absent: lymphadenopathy - Respiratory Respiratory exam: Present: CTAB. Absent: accessory muscle use, rales, rhonchi, wheezes - Cardiovascular Cardiovascular exam: Present: RRR, +S1, +S2. Absent: diastolic murmur, gallop, rubs, systolic murmur - GI/Abdominal GI/Abdominal exam: Present: normal bowel sounds, soft, no peritoneal signs. Absent: distended, tenderness Additional comments: wound intact - Extremities Exam Extremities exam: Present: warm, radial pulses palpable and symmetrical. Absent : calf tenderness, cyanotic, pedal edema - Neurological Exam Neurological exam: Present: alert, CN II-XII intact, oriented X3, no focal deficits. Absent: pronater drift, facial droop, speech deficit - Skin Skin exam: Present: dry, intact - VTE Documentation of Mechanical Device: Intermittent pneumatic compression device
--- NOTE | 2017-06-29 11:14 | Infectious Disease Progress No ---
Date of Encounter: 06/29/17 Time of Encounter: 10:45 - Assessment and Plan (1) Sepsis Current Visit: Yes Status: Resolved Severe Sepsis 2/2 MRSA and VRE bacteremia with evidence of organ dysfunction Presented with 3 SIRS criteria Patient has been afebrile for 24 hours, mildly tachycardic, no tachypnea, improving leukocytosis (down to 11.5) Patient has been afebrile for 24 hours Patient was temperature 99.1 with a MAXIMUM TEMPERATURE of 99.8 White blood cell count has continued to trend downward and is now at 11.5 Heart rate 92 Secondary to complicated diverticulitis, MRSA bacteremia, hank glabrata bacteremia, VRE bacteremia, UTI 2nd to hank albicans and Hank glabrata Recommend waiting additional 24 hours of patient continuing to be afebrile Once patient has been sufficiently stable for discharge she will require the following: Patient will require a total of 4 weeks coverage for MRSA bacteremia given presence of joint prosthesis Patient will report continued Diflucan until 07/05 Patient will require Avelox until 07/[address] on 07/04 Follow-up with Dr. Hsu on 07/06 Qualifiers: Sepsis type: methicillin resistant Staphylococcus aureus Qualified Code(s) : A41.02 - Sepsis due to Methicillin resistant Staphylococcus aureus (2) Perforated diverticulum Current Visit: Yes Status: Resolved Patient presented with acute onset of sharp abdominal pain. Has history of sigmoid diverticulitis. CT abdomen on 05/29 showed pneumoperitoneum with diverticulitis of sigmoid colon. Patient underwent exploratory celiotomy with sigmoid colectomy with colocolonic anastomosis on 06/04/17. She had a PICC line and subclavian CVC placed and confirmed by chest x-ray on . Patient was also started on Cipro and Flagyl on 05/29. Blood Cultures on are negative. Patient became febrile 06/09, with worsening leukocytosis and antibiotics were broadened to vancomycin and cefepime and Flagyl Fever of 102.1 on 06/11/17 and primary team started patient on Micafungin 100mg daily. CT abdomen/pelvis 06/11 increasing fluid collections along abdominal incision, and multiloculated fluid loculations throughout the abdomen and pelvis increased in size and organizing, decreased pneumoperitoneum 06/14/18 micafungin d/c and patient started on diflucan which was switched back to micafungin as patient grew hank glabrata in urine culture/blood. CT notes increased size of abscess to drain 10.7 cm within the abdomen. Worsening right hydronephrosis. And worsening seroma below incision measuring 4.1 x 5.6 cm. Status post percutaneous drainage of abdominal abscess by IR 06/17/2017: Cultures have grown MRSA, VRE, pansensitive Hank albicans CT 06/19/2017 shows improvement of previous abdominal abscess. Continued small pockets of fluid collections throughout the abdomen and pelvis. Persistent pneumoperitoneum persistent moderate right hydronephrosis and hydroureter in the presence of nephroureteral stent and slight interval decrease in size of fluid collection within the subcutaneous fat of the midline anterior abdominal wall. She had recurrent fever over weekend of jun 19-08/2017 and cultures were redrawn as below: Repeat blood cultures: 06/18/17 peripheral blood cultures grew hank glabrata (2 /2 cultures) and VRE (1/2 cultures) 06/19/17 peripheral cultures growing hank glabrata 06/19 cvc blood cultures VRE and hank glabrata 06/19/17 central venous catheter tip culture growing yeast 06/20/17 peripheral blood culture growing Hank glabrata 06/20/17 PICC blood culture hank growth Miller and gram- negative rip (proteus sepcies) 06/21/17 peripheral blood culture negative for growth 06/21/17 R. PICC blood culture hank glabrata 06/23/17 blood cultures preliminarily negative 06/25/17 blood cultures preliminarily negative CT 06/24/17 shows complete resolution of intra-abdominal abscess following drain placement, decreased size of scattered fluid pockets, decreased air-fluid collection within the soft tissues underneath the incision. New G- bacteremia as noted above, likely contamination as it grew on 06/20 culture but not 06/21 or 06/19. Patient has been afebrile for 24 hours continue diflucan, cefepime 2000mg Q12h, daptomycin and flagyl 500mg Q8h Recommendations as above (3) Candidemia Current Visit: Yes Status: Acute as stated above patient has candidia glabrata and parapsilosis in blood. Patient reports seen aemt on Wednesday night, who reportedly did not see any evidence of endophthalmitis per the patient (4) VRE bacteremia Current Visit: Yes Status: Resolved 06/19/17 CVC blood culture + for VRE Patient was switched to daptomycin last weekend. CK is 19 repeat blood cultures collected 06/21/2017 are preliminary negative for VRE EMILIE negative for endocarditis continue daptomycin. antibiotic duration depends of clinical picture. (5) MRSA bacteremia Current Visit: Yes Status: Resolved Complicated MRSA bacteremia patient had left knee prosthetic joint Blood cultures from 06/08 from subclavian CVC and PICC line are positive for MRSA. Patient started on vancomycin and cefepime on 06/08 Since starting vancomycin patient's white blood cell count has improved from 15.1-10.9. Patient discontinued vancomycin on 06/20/17 Patient had repeat blood cultures drawn CvC, PICC and peripheral 06/10/17 all negative x6. PICC line culture of tip negative TTE: LVEF 65-70% mild tricuspid regurgiations, no vavular vegetations are noted EMILIE: LVEF 65%, normal LV size and function, right ventricle normal in size and systolic function, no pulmonary hypertension, no significant valvular dysfunction, no evidence for endocarditis visualized kidney function slightly worse today with serum creatinine 1.33 Repeat peripheral blood cultures 06/18/17, 06/19, 06/20, 07/19, 06/23, and 06/25 are negative for MRSA. Subclavian CVC has been removed. PICC has been placed in the right upper extremity: Repeat blood cultures ordered and preliminary results are negative for MRSA. Plan: continue daptomycin (6) UTI (urinary tract infection) Current Visit: Yes Status: Acute 06/13 urine culture Hank albicans and glabrata harry d/c continue fluconazole Qualifiers: Urinary tract infection type: acute cystitis Hematuria presence: without hematuria Qualified Code(s): N30.00 - Acute cystitis without hematuria (7) Hypoxia Current Visit: Yes Status: Acute stable patient requiring O2 supplementation since being admitted O2 requirement 1-2 L on lung exam clear anteriorly CXR 06/10/17 negative for pleural effusion, consolidation. Free air under the right hemidiaphragm noted again unchanged. sob unchanged from yesterday plan as per primary (8) Acute worsening of stage 3 chronic kidney disease Current Visit: Yes Status: Acute Improvement in patient renal function seen today with creatinine down to 1.09 (9) Hydronephrosis Current Visit: Yes Status: Acute Discovered on CT abdomen 06/02 which showed right hydroureter with right ureteritis and bilateral pyelitis Underwent on 06/04/17 right ureteral stent placement and left ureteral catheter placement by urology. Patient has had 2 urine cultures which have been negative for growth. Urinalysis does not indicate any signs of infection. Patient has a Harry catheter output of light red urine. Likely secondary to urologic procedure. Patient is on broad-spectrum antibiotics of daptomycin and cefepime which will cover urinary tract infection. Repeat CT abdomen and pelvis on 06/07 showed improvement of right hydronephrosis and stable stent placement. Repeat CT at 06/16/2017 shows worsening right hydronephrosis. Urology reports no additional intervention needed at this point. Qualifiers: Hydronephrosis type: other Qualified Code(s): N13.39 - Other hydronephrosis (10) Hypothyroidism Current Visit: Yes Status: Chronic As per primary Qualifiers: Hypothyroidism type: acquired Qualified Code(s): E03.9 - Hypothyroidism, unspecified (11) HTN (hypertension) Current Visit: Yes Status: Chronic controlled. Qualifiers: Hypertension type: essential hypertension Qualified Code(s): I10 - Essential (primary) hypertension (12) DVT prophylaxis Current Visit: Yes Status: Acute heparin SQ - Subjective Interval history: Patient sitting comfortably when seen today. She reports improvement from yesterday and denies having continuation of a low-grade fever she reported the day before. She denies any fevers, chills, rigors, diaphoresis. She does report having continued well abdominal pain from her previous surgery and reports only mild nausea. There is been improvement in her white blood cell count today is down to 11.5. Patient has also been afebrile for 24 hours Infect Dis PN-Objective Data - Labs CBC & Chem 7: 06/29/17 04:25 06/29/17 04:25 Labs: Laboratory Results - last 24 hr 06/29/17 06/29/17 06/29/17 03:20 04:25 04:25 WBC 11.5 H RBC 2.77 L Hgb 8.0 L Hct 25.4 L MCV 91.7 MCH 28.9 MCHC 31.5 L RDW 15.9 H Plt Count 293 MPV 9.0 L Immature Gran % 0.7 Seg Neutrophils % 69.0 Lymphocytes % 19.7 Monocytes % 9.5 Eosinophils % 0.8 Basophils % 0.3 Neutrophils # 7.9 Lymphocytes # 2.3 Monocytes # 1.1 Eosinophils # 0.1 Basophils # 0.0 Reactive Lymphocytes Present A Platelet Estimate Normal Sodium 133 L Potassium 3.8 Chloride 103 Carbon Dioxide 24 BUN 15 Creatinine 1.09 Est GFR ( Amer) > 60 Est GFR (Non-Af Amer) 51 L BUN/Creatinine Ratio 14 Glucose 103 POC Glucose Calculated Osmolality 277 L Calcium 7.8 L Creatine Kinase 19 L 06/29/17 07:59 WBC RBC Hgb Hct MCV MCH MCHC RDW Plt Count MPV Immature Gran % Seg Neutrophils % Lymphocytes % Monocytes % Eosinophils % Basophils % Neutrophils # Lymphocytes # Monocytes # Eosinophils # Basophils # Reactive Lymphocytes Platelet Estimate Sodium Potassium Chloride Carbon Dioxide BUN Creatinine Est GFR ( Amer) Est GFR (Non-Af Amer) BUN/Creatinine Ratio Glucose POC Glucose 102 H Calculated Osmolality Calcium Creatine Kinase Cultures: Cultures 06/23/17 10:40 Blood Culture - Final Peripheral Venipuncture No growth. 06/20/17 10:15 Blood Culture - Final Peripheral Central Cath, Picc Gram Negative Rip Hank glabrata 06/21/17 05:49 Blood Culture - Final Peripheral Venipuncture No growth. 06/25/17 21:55 Blood Culture - Preliminary Peripheral Venipuncture No growth. 06/19/17 11:35 Catheter Tip Culture - Final Intravenous or Arterial Cath Hank glabrata 06/21/17 04:40 Blood Culture - Final Central Venous Catheter Hank glabrata 06/19/17 09:12 Blood Culture - Final Central Venous Catheter Vancomycin Resistant Enterococcus faecium Hank glabrata Hank parapsilosis 06/20/17 10:06 Blood Culture - Final Peripheral Venipuncture Hank glabrata 06/18/17 08:41 Blood Culture - Final Peripheral Venipuncture Hank glabrata 06/19/17 00:26 Blood Culture - Final Peripheral Venipuncture Hank glabrata 06/19/17 00:20 Blood Culture - Final Peripheral Venipuncture Hank glabrata 06/18/17 10:44 Blood Culture - Final Peripheral Venipuncture Vancomycin Resistant Enterococcus faecium Hank glabrata 06/13/17 04:38 Urine Culture - Final Urine,[place] Hank glabrata Hank albicans 06/17/17 11:20 Body Fluid Culture - Final Other-Specify in Comments Hank albicans Methicillin Resistant S.aureus Enterococcus faecium 06/12/17 20:08 Blood Culture - Final Peripheral Venipuncture No growth. 06/10/17 05:45 Blood Culture - Final Peripheral Central Cath, Picc No growth. 06/10/17 05:41 Blood Culture - Final Peripheral Venipuncture No growth. 06/10/17 11:35 Blood Culture - Final Peripheral Central Cath, Picc No growth. 06/10/17 05:45 Blood Culture - Final Central Venous Catheter No growth. 06/10/17 05:46 Blood Culture - Final Peripheral Venipuncture No growth. 06/10/17 11:35 Blood Culture - Final Central Venous Catheter No growth. 06/10/17 16:40 Catheter Tip Culture - Final Intravenous or Arterial Cath No growth. 06/08/17 06:33 Blood Culture - Final Peripheral Central Cath, Picc Methicillin Resistant S.aureus 06/08/17 06:33 Blood Culture - Final Central Venous Catheter Methicillin Resistant S.aureus 06/08/17 04:20 Urine Culture - Final Urine,Clean Catch No significant growth. 06/03/17 09:25 Urine Culture - Final Urine,Harry Port No growth. 05/30/17 09:56 Blood Culture - Final Peripheral Venipuncture No growth. 05/30/17 10:10 Blood Culture - Final Peripheral Venipuncture No growth. Serology 06/21/17 06/20/17 06/19/17 Range/Units 04:40 10:15 16:10 Ur Specimen Adequacy Urine Color Yellow (Yellow) Urine Clarity Clear (Clear) Urine pH 6.5 (5.0-8.0) pH Units Ur Specific [place] 1.021 (1.010-1.025) Urine Protein 30 H (Neg-Trace) mg/dL Urine Glucose (UA) Normal (Normal) mg/dL Urine Ketones Negative (Negative) mg/dL Urine Blood Large H (Negative) Urine Nitrite Negative (Negative) Urine Bilirubin Negative (Negative) Urine Urobilinogen Normal (Normal) mg/dL Ur Leukocyte Esterase Negative (Negative) Urine Microscopic RBC 0-3 (0-3) per hpf Urine Microscopic WBC 0-3 (0-3) per hpf Ur Squamous Epith Cells Many H (None-Few) per lpf Urine Bacteria None Seen (None-Few) per hpf Hyaline Casts None Seen (None-Few) per lpf Ur Culture Indicated? NO (NO) A. baumannii (PCR) Not Detected Not Detected (Not Detect) Chlamy pneumoniae PCR (Not Detect) Adenovirus (PCR) (Not Detect) B. pertussis DNA (PCR) (Not Detect) B.parapertussis DNA PCR (Not Detect) Hank albicans (PCR) Not Detected Not Detected (Not Detect) C. glabrata (PCR) DETECTED A DETECTED A (Not Detect) C. krusei (PCR) Not Detected Not Detected (Not Detect) C. parapsilosis (PCR) Not Detected Not Detected (Not Detect) C. tropicalis (PCR) Not Detected Not Detected (Not Detect) Coronavirus OC43 (PCR) (Not Detect) Coronavirus HKU1 (PCR) (Not Detect) Coronavirus 229E (PCR) (Not Detect) Coronavirus NL63 (PCR) (Not Detect) Enterobacteriac sp PCR Not Detected DETECTED A (Not Detect) E. cloacae complex PCR Not Detected Not Detected (Not Detect) Enterococcus sp PCR Not Detected Not Detected (Not Detect) E. coli (PCR) Not Detected Not Detected (Not Detect) H. influenzae (PCR) Not Detected Not Detected (Not Detect) Human Metapneumovir PCR (Not Detect) Influenza A (H1) PCR (Not Detect) Influ A (H1N1/09) PCR (Not Detect) Influenza A (H3) PCR (Not Detect) Influenza A Untype (PCR) (Not Detect) Influenza Type B (PCR) (Not Detect) Klebsiella oxytoca PCR Not Detected Not Detected (Not Detect) Klebsiella pneumoniae Not Detected Not Detected (Not Detect) List. monocytogenes PCR Not Detected Not Detected (Not Detect) M.pneumoniae DNA (PCR) (Not Detect) N. meningitidis (PCR) Not Detected Not Detected (Not Detect) Parainfluenza 1 (PCR) (Not Detect) Parainfluenza 2 (PCR) (Not Detect) Parainfluenza 3 (PCR) (Not Detect) Parainfluenza 4 (PCR) (Not Detect) Proteus species (PCR) Not Detected DETECTED A (Not Detect) RSV (PCR) (Not Detect) Entero/Rhino (PCR) (Not Detect) Serratia marcescens PCR Not Detected Not Detected (Not Detect) Staphylococcus sp PCR Not Detected Not Detected (Not Detect) Staph aureus (PCR) Not Detected Not Detected (Not Detect) mecA-Methicil Res Gene Not Detected Not Detected (Not Detect) Streptococcus sp PCR Not Detected Not Detected (Not Detect) Group A Strep DNA Not Detected Not Detected (Not Detect) Group B Strep (PCR) Not Detected Not Detected (Not Detect) Strep pneumoniae (PCR) Not Detected Not Detected (Not Detect) P. aeruginosa (PCR) Not Detected Not Detected (Not Detect) Bryant/B-Vanco Res Genes Not Detected Not Detected (Not Detect) KPC (blaKPC) Detect PCR Not Detected Not Detected (Not Detect) 06/19/17 06/19/17 06/19/17 Range/Units 09:12 09:12 09:12 Ur Specimen Adequacy Urine Color (Yellow) Urine Clarity (Clear) Urine pH (5.0-8.0) pH Units Ur Specific [place] (1.010-1.025) Urine Protein (Neg-Trace) mg/dL Urine Glucose (UA) (Normal) mg/dL Urine Ketones (Negative) mg/dL Urine Blood (Negative) Urine Nitrite (Negative) Urine Bilirubin (Negative) Urine Urobilinogen (Normal) mg/dL Ur Leukocyte Esterase (Negative) Urine Microscopic RBC (0-3) per hpf Urine Microscopic WBC (0-3) per hpf Ur Squamous Epith Cells (None-Few) per lpf Urine Bacteria (None-Few) per hpf Hyaline Casts (None-Few) per lpf Ur Culture Indicated? (NO) A. baumannii (PCR) Not Detected Not Detected (Not Detect) Chlamy pneumoniae PCR Not Detected (Not Detect) Adenovirus (PCR) Not Detected (Not Detect) B. pertussis DNA (PCR) Not Detected (Not Detect) B.parapertussis DNA PCR Not Detected (Not Detect) Hank albicans (PCR) Not Detected Not Detected (Not Detect) C. glabrata (PCR) DETECTED A DETECTED A (Not Detect) C. krusei (PCR) Not Detected Not Detected (Not Detect) C. parapsilosis (PCR) Not Detected DETECTED A (Not Detect) C. tropicalis (PCR) Not Detected Not Detected (Not Detect) Coronavirus OC43 (PCR) Not Detected (Not Detect) Coronavirus HKU1 (PCR) Not Detected (Not Detect) Coronavirus 229E (PCR) Not Detected (Not Detect) Coronavirus NL63 (PCR) Not Detected (Not Detect) Enterobacteriac sp PCR Not Detected Not Detected (Not Detect) E. cloacae complex PCR Not Detected Not Detected (Not Detect) Enterococcus sp PCR Not Detected DETECTED A (Not Detect) E. coli (PCR) Not Detected Not Detected (Not Detect) H. influenzae (PCR) Not Detected Not Detected (Not Detect) Human Metapneumovir PCR Not Detected (Not Detect) Influenza A (H1) PCR Not Detected (Not Detect) Influ A (H1N1/09) PCR Not Detected (Not Detect) Influenza A (H3) PCR Not Detected (Not Detect) Influenza A Untype (PCR) Not Detected (Not Detect) Influenza Type B (PCR) Not Detected (Not Detect) Klebsiella oxytoca PCR Not Detected Not Detected (Not Detect) Klebsiella pneumoniae Not Detected Not Detected (Not Detect) List. monocytogenes PCR Not Detected Not Detected (Not Detect) M.pneumoniae DNA (PCR) Not Detected (Not Detect) N. meningitidis (PCR) Not Detected Not Detected (Not Detect) Parainfluenza 1 (PCR) Not Detected (Not Detect) Parainfluenza 2 (PCR) Not Detected (Not Detect) Parainfluenza 3 (PCR) Not Detected (Not Detect) Parainfluenza 4 (PCR) Not Detected (Not Detect) Proteus species (PCR) Not Detected Not Detected (Not Detect) RSV (PCR) Not Detected (Not Detect) Entero/Rhino (PCR) Not Detected (Not Detect) Serratia marcescens PCR Not Detected Not Detected (Not Detect) Staphylococcus sp PCR Not Detected Not Detected (Not Detect) Staph aureus (PCR) Not Detected Not Detected (Not Detect) mecA-Methicil Res Gene N/A N/A (Not Detect) Streptococcus sp PCR Not Detected Not Detected (Not Detect) Group A Strep DNA Not Detected Not Detected (Not Detect) Group B Strep (PCR) Not Detected Not Detected (Not Detect) Strep pneumoniae (PCR) Not Detected Not Detected (Not Detect) P. aeruginosa (PCR) Not Detected Not Detected (Not Detect) Bryant/B-Vanco Res Genes N/A DETECTED A (Not Detect) KPC (blaKPC) Detect PCR N/A N/A (Not Detect) 06/19/17 06/18/17 06/18/17 Range/Units 00:20 10:44 08:41 Ur Specimen Adequacy Urine Color (Yellow) Urine Clarity (Clear) Urine pH (5.0-8.0) pH Units Ur Specific [place] (1.010-1.025) Urine Protein (Neg-Trace) mg/dL Urine Glucose (UA) (Normal) mg/dL Urine Ketones (Negative) mg/dL Urine Blood (Negative) Urine Nitrite (Negative) Urine Bilirubin (Negative) Urine Urobilinogen (Normal) mg/dL Ur Leukocyte Esterase (Negative) Urine Microscopic RBC (0-3) per hpf Urine Microscopic WBC (0-3) per hpf Ur Squamous Epith Cells (None-Few) per lpf Urine Bacteria (None-Few) per hpf Hyaline Casts (None-Few) per lpf Ur Culture Indicated? (NO) A. baumannii (PCR) Not Detected Not Detected Not Detected (Not Detect) Chlamy pneumoniae PCR (Not Detect) Adenovirus (PCR) (Not Detect) B. pertussis DNA (PCR) (Not Detect) B.parapertussis DNA PCR (Not Detect) Hank albicans (PCR) Not Detected Not Detected Not Detected (Not Detect) C. glabrata (PCR) DETECTED A Not Detected DETECTED A (Not Detect ) C. krusei (PCR) Not Detected Not Detected Not Detected (Not Detect) C. parapsilosis (PCR) Not Detected Not Detected Not Detected (Not Detect) C. tropicalis (PCR) Not Detected Not Detected Not Detected (Not Detect) Coronavirus OC43 (PCR) (Not Detect) Coronavirus HKU1 (PCR) (Not Detect) Coronavirus 229E (PCR) (Not Detect) Coronavirus NL63 (PCR) (Not Detect) Enterobacteriac sp PCR Not Detected Not Detected Not Detected (Not Detect) E. cloacae complex PCR Not Detected Not Detected Not Detected (Not Detect) Enterococcus sp PCR Not Detected DETECTED A Not Detected (Not Detect) E. coli (PCR) Not Detected Not Detected Not Detected (Not Detect) H. influenzae (PCR) Not Detected Not Detected Not Detected (Not Detect) Human Metapneumovir PCR (Not Detect) Influenza A (H1) PCR (Not Detect) Influ A (H1N1/09) PCR (Not Detect) Influenza A (H3) PCR (Not Detect) Influenza A Untype (PCR) (Not Detect) Influenza Type B (PCR) (Not Detect) Klebsiella oxytoca PCR Not Detected Not Detected Not Detected (Not Detect) Klebsiella pneumoniae Not Detected Not Detected Not Detected (Not Detect) List. monocytogenes PCR Not Detected Not Detected Not Detected (Not Detect) M.pneumoniae DNA (PCR) (Not Detect) N. meningitidis (PCR) Not Detected Not Detected Not Detected (Not Detect) Parainfluenza 1 (PCR) (Not Detect) Parainfluenza 2 (PCR) (Not Detect) Parainfluenza 3 (PCR) (Not Detect) Parainfluenza 4 (PCR) (Not Detect) Proteus species (PCR) Not Detected Not Detected Not Detected (Not Detect) RSV (PCR) (Not Detect) Entero/Rhino (PCR) (Not Detect) Serratia marcescens PCR Not Detected Not Detected Not Detected (Not Detect) Staphylococcus sp PCR Not Detected Not Detected Not Detected (Not Detect) Staph aureus (PCR) Not Detected Not Detected Not Detected (Not Detect) mecA-Methicil Res Gene Not Detected N/A N/A (Not Detect) Streptococcus sp PCR Not Detected Not Detected Not Detected (Not Detect) Group A Strep DNA Not Detected Not Detected Not Detected (Not Detect) Group B Strep (PCR) Not Detected Not Detected Not Detected (Not Detect) Strep pneumoniae (PCR) Not Detected Not Detected Not Detected (Not Detect) P. aeruginosa (PCR) Not Detected Not Detected Not Detected (Not Detect) Bryant/B-Vanco Res Genes Not Detected DETECTED A N/A (Not Detect) KPC (blaKPC) Detect PCR Not Detected N/A N/A (Not Detect) 06/08/17 06/08/17 Range/Units 06:33 04:20 Ur Specimen Adequacy Urine Color Dark Yellow (Yellow) Urine Clarity Clear (Clear) Urine pH 6.0 (5.0-8.0) pH Units Ur Specific [place] > 1.030 H (1.010-1.025) Urine Protein 100 H (Neg-Trace) mg/dL Urine Glucose (UA) 100 H (Normal) mg/dL Urine Ketones Negative (Negative) mg/dL Urine Blood Large H (Negative) Urine Nitrite Negative (Negative) Urine Bilirubin Negative (Negative) Urine Urobilinogen Normal (Normal) mg/dL Ur Leukocyte Esterase Small H (Negative) Urine Microscopic RBC (0-3) per hpf Urine Microscopic WBC (0-3) per hpf Ur Squamous Epith Cells (None-Few) per lpf Urine Bacteria (None-Few) per hpf Hyaline Casts (None-Few) per lpf Ur Culture Indicated? YES A (NO) A. baumannii (PCR) Not Detected (Not Detect) Chlamy pneumoniae PCR (Not Detect) Adenovirus (PCR) (Not Detect) B. pertussis DNA (PCR) (Not Detect) B.parapertussis DNA PCR (Not Detect) Hank albicans (PCR) Not Detected (Not Detect) C. glabrata (PCR) Not Detected (Not Detect) C. krusei (PCR) Not Detected (Not Detect) C. parapsilosis (PCR) Not Detected (Not Detect) C. tropicalis (PCR) Not Detected (Not Detect) Coronavirus OC43 (PCR) (Not Detect) Coronavirus HKU1 (PCR) (Not Detect) Coronavirus 229E (PCR) (Not Detect) Coronavirus NL63 (PCR) (Not Detect) Enterobacteriac sp PCR Not Detected (Not Detect) E. cloacae complex PCR Not Detected (Not Detect) Enterococcus sp PCR Not Detected (Not Detect) E. coli (PCR) Not Detected (Not Detect) H. influenzae (PCR) Not Detected (Not Detect) Human Metapneumovir PCR (Not Detect) Influenza A (H1) PCR (Not Detect) Influ A (H1N1/09) PCR (Not Detect) Influenza A (H3) PCR (Not Detect) Influenza A Untype (PCR) (Not Detect) Influenza Type B (PCR) (Not Detect) Klebsiella oxytoca PCR Not Detected (Not Detect) Klebsiella pneumoniae Not Detected (Not Detect) List. monocytogenes PCR Not Detected (Not Detect) M.pneumoniae DNA (PCR) (Not Detect) N. meningitidis (PCR) Not Detected (Not Detect) Parainfluenza 1 (PCR) (Not Detect) Parainfluenza 2 (PCR) (Not Detect) Parainfluenza 3 (PCR) (Not Detect) Parainfluenza 4 (PCR) (Not Detect) Proteus species (PCR) Not Detected (Not Detect) RSV (PCR) (Not Detect) Entero/Rhino (PCR) (Not Detect) Serratia marcescens PCR Not Detected (Not Detect) Staphylococcus sp PCR DETECTED A (Not Detect) Staph aureus (PCR) DETECTED A (Not Detect) mecA-Methicil Res Gene DETECTED A (Not Detect) Streptococcus sp PCR Not Detected (Not Detect) Group A Strep DNA Not Detected (Not Detect) Group B Strep (PCR) Not Detected (Not Detect) Strep pneumoniae (PCR) Not Detected (Not Detect) P. aeruginosa (PCR) Not Detected (Not Detect) Bryant/B-Vanco Res Genes Not Detected (Not Detect) KPC (blaKPC) Detect PCR Not Detected (Not Detect) Exam - Constitutional Vitals: Temp Pulse Resp BP Pulse Ox 98.5 F 90 18 121/63 96 06/29/17 08:32 06/29/17 08:32 06/29/17 08:32 06/29/17 08:32 06/29/17 08:32 - Additional findings Additional findings: General: Cooperative, pleasant, no acute distress, alert and oriented 3, answers questions appropriately HEENT: Normocephalic, atraumatic, neck supple, trachea midline, Conjunctiva pink , sclera anicteric, oral mucosa moist Respiratory: No accessory muscle usage, clear to auscultation bilaterally, no wheezes/rhonchi/rales appreciated Cardiovascular: Regular rate and rhythm, S1 and S2 present, no murmurs/rubs/ gallops/clicks appreciated GI/abdominal: Nondistended, mild tenderness to palpation, enedina from midline celiotomy, incision clean, dry, no induration or drainage, soft, normal bowel sounds, no peritoneal signs Extremities: No calf tenderness, noncyanotic, mild nonpitting pedal edema appreciated, warm, lower extremity pulses palpable and symmetrical, no warmth or tenderness around joints Neurological: Alert and oriented 3, no facial droop, no focal deficits Skin: Dry, intact, normal color - VTE Documentation of Mechanical Device: Intermittent pneumatic compression device Consult Discharge Plan - Plan Referrals: Kole Barksdale MD [Primary Care Provider] - Michele Machuca MD [Non-Partnered Physician] - - Attending Attestation I examined this patient and my medical decision-making was reviewed with the Resident Physician. I agree with the documented findings, disposition and treatment plan as described except to the extent set forth below. Patient seen and examined. Appears comfortable lying in bed. No abdominal pain. Pleasant. Over the last 24 hours patient has been afebrile and WBC has improved. Continues to tolerate oral intake. No nausea. No chest pain or shortness of breath. At this point if okay with surgery and the patient continues to do better tomorrow, recommend continuing daptomycin and Diflucan through 07/05/2017. DC cefepime and Flagyl and switch the patient to Avelox 400 mg IV every [address] abdomen and pelvis with oral contrast on 07/04/2017 and follow-up with me in clinic on 07/05/2017. At that point if patient is doing clinically better and the CT continues to shows improvement, consider switching to oral antibiotics and DC the IV and the PICC line. Page Dr. machuca to discuss with him awaiting his call back Discussed with the hospitalist team.
--- NOTE | 2017-06-29 14:05 | Internal Med Progress Note ---
Date of Encounter: 06/29/17 Time of Encounter: 14:03 - Assessment and plan (1) Anemia Current Visit: Yes Status: Chronic Qualifiers: Anemia type: unspecified type Qualified Code(s): D64.9 - Anemia, unspecified (2) Abdominal abscess Current Visit: Yes Status: Resolved (3) MRSA bacteremia Current Visit: Yes Status: Resolved (4) Perforated diverticulum Current Visit: Yes Status: Resolved (5) UTI (urinary tract infection) Current Visit: Yes Status: Acute Qualifiers: Urinary tract infection type: acute cystitis Hematuria presence: without hematuria Qualified Code(s): N30.00 - Acute cystitis without hematuria (6) VRE bacteremia Current Visit: Yes Status: Resolved (7) HTN (hypertension) Current Visit: Yes Status: Chronic Qualifiers: Hypertension type: essential hypertension Qualified Code(s): I10 - Essential (primary) hypertension (8) Hypothyroidism Current Visit: Yes Status: Chronic Qualifiers: Hypothyroidism type: acquired Qualified Code(s): E03.9 - Hypothyroidism, unspecified (9) Morbid obesity with BMI of 45.0-49.9, adult Current Visit: Yes Status: Chronic (10) Sepsis Current Visit: Yes Status: Resolved Qualifiers: Sepsis type: methicillin resistant Staphylococcus aureus Qualified Code(s) : A41.02 - Sepsis due to Methicillin resistant Staphylococcus aureus (11) Acute respiratory failure with hypoxia Current Visit: Yes Status: Resolved (12) Depression Current Visit: Yes Status: Chronic Qualifiers: Depression Type: unspecified Qualified Code(s): F32.9 - Major depressive disorder, single episode, unspecified (13) Hydronephrosis Current Visit: Yes Status: Acute Qualifiers: Hydronephrosis type: other Qualified Code(s): N13.39 - Other hydronephrosis - Subjective Interval history: Ms. Mitchell is a 61 year old female Seen and examined at [facility] Hospital day 31 She is a 61 F who was admitted on 05/29/17 for management of perforated sigmoid diverticulitis and pneumoperitoneum. She has a PMH of HTN, Hypothyroidism, chronic pain syndrome on pain meds. Incidental finding of R hydronephrosis on CT scan. She was reviewed by surgery same day and initially managed conservatively. On , she went to surgery -and had Cystoscopy and right 4.8 x 26 cm ureteral stent placement and left ureteral catheter placement, as well as exploratory celiotomy, sigmoid colectomy with stapled colo colonic anastomosis. on POD 3, she developed new signs of sepsis with fever and leukocytosis, at that time, Repeat abdominal CT 06/02/17 showing 1.17 cm x 3.9 cm x 2.7 cm abscess inferior to the proximal sigmoid colon, increased inflammation of the mesentery, new minimal right hydronephrosis suggestive of uriritis. Antibiotics were broadened to include coverage for MRSA with Vancomycin added to her original regimen of cefepime and Flagyl. She was also transferred to the MICU for close monitoring She developed fever of 102.1 on 06/11/17 and primary team started patient on Micafungin 100mg daily. CT abdomen/pelvis same day showed increasing fluid collections along abdominal incision, and multiloculated fluid loculations throughout the abdomen and pelvis increased in size and organizing, decreased pneumoperitoneum 06/14/18 micafungin d/c and patient started on diflucan CT notes increased size of abscess to drain 10.7 cm within the abdomen. Worsening right hydronephrosis. An worsening seroma below incision measuring 4.1 x 5.6 cm. s/p percutaneous drainage of abdominal abscess by IR 06/17/2017: Cultures have grown MRSA, VRE, pansensitive Jayna albicans Since then, repeat blood cultures : 06/18/17 peripheral blood cultures grew yeast (2/2 cultures) and VRE (1/2 cultures) 06/19/17 peripheral cultures growing yeast and VRE -drawn from CVC 06/19/17 central venous catheter tip culture preliminary negative 06/20/17 blood cultures -source were peripheral, CVC and PICC line: GNR, C. galbrata 06/21/17 blood culture . C. galbrata from CVC 06/21/17: Peripehral access . 1 bottle prelim negative 06/23/17: peripheral blood culture negative so far 06/25/17: Negative no growth Repeat abdomen CT done 06/24 showed improvement Drain removed 06/24/17 PICC line was discontinued 06/24/17 EMILIE done 06/25 shows no vegetations Ophthamologist Dr. Maravilla did review the patient and recommended continued management, no evidence of endophthalmitis on dilated eye exam Patient's renal function slightly worsened on 06/28 but responded appropriately to IVF hydration, she also developed a new leukocytosis which is resolving. She is again seen and examined at the bedside today A new PICC line was placed 06/28/17 and I believe it is the right time to discharge the patient home on IV antibiotics as recommended by the Infectious disease team, she will need PTOT at home, as well as nursing for line care and infusion, appropriate follow ups with her PCP, Infectious disease tem and surgery She did have one bottle of GNR in blood culture of 06/20/17, possible contaminant, patient has been on cefepime and flagly throughout her hospital stay. - Constitutional Vitals: Temp Pulse Resp BP Pulse Ox 98.1 F 92 15 134/81 97 06/29/17 11:39 06/29/17 11:39 06/29/17 11:39 06/29/17 11:39 06/29/17 11:39 General appearance: Present: cooperative, A&O X 3, morbidly obese, pleasant, no acute distress, answers questions appropriately - Head Head exam: Present: atraumatic, normocephalic - Eye Eye exam: Present: PERRL, conjuntiva pink, sclera anicteric Pupils: Present: PERRL - Neck Neck exam general surgery: Present: supple, trachea midline. Absent: lymphadenopathy - Respiratory Respiratory exam: Present: CTAB. Absent: accessory muscle use, rales, rhonchi, wheezes - Cardiovascular Cardiovascular exam: Present: RRR, +S1, +S2. Absent: diastolic murmur, gallop, rubs, systolic murmur - GI/Abdominal GI/Abdominal exam: Present: normal bowel sounds, soft, no peritoneal signs. Absent: distended, tenderness - Extremities Exam Extremities exam: Present: warm, radial pulses palpable and symmetrical. Absent : calf tenderness, cyanotic, pedal edema - Neurological Exam Neurological exam: Present: alert, CN II-XII intact, oriented X3, no focal deficits. Absent: pronater drift, facial droop, speech deficit - Skin Skin exam: Present: dry, intact Internal Medicine: Result - Labs CBC & Chem 7: 06/29/17 04:25 06/29/17 04:25 Labs: Short CBC 06/29/17 Range/Units 04:25 WBC 11.5 H (4.3-11.1) K/mcL Hgb 8.0 L (11.5-15.4) g/dL Hct 25.4 L (35.3-44.9) % Plt Count 293 (140-400) K/mcL Neutrophils # 7.9 (1.6-8.9) K/mcL BMP 06/29/17 04:25 Sodium 133 L Potassium 3.8 Chloride 103 Carbon Dioxide 24 BUN 15 Creatinine 1.09 Glucose 103 Calcium 7.8 L - ABG Interpretation ABG results: ABG ABG pH 7.43 pH Units (7.32-7.45) 06/08/17 04:24 ABG pCO2 35 mmHg (35-45) 06/08/17 04:24 ABG pO2 72 mmHg (85-104) L 06/08/17 04:24 ABG O2 Saturation 95 % (95-98) 06/08/17 04:24 PT/INR, D-dimer PT 16.4 Seconds (9.4-12.1) H 06/17/17 06:18 - VTE Documentation of Mechanical Device: Intermittent pneumatic compression device Consult Discharge Plan - Plan Referrals: Kole Barksdale MD [Primary Care Provider] - Michele Machuca MD [Non-Partnered Physician] -
[2017-06-29] MEDS: SODIUM CHLORIDE 0.9% IVPB SCH (15:33)
[2017-06-29] MEDS: DAPTOMYCIN IVPB SCH (15:33)
[2017-06-29] MEDS: Fluconazole 400 MG/200 ML 400 MG/200 ML BAG IVPB SCH (17:13)
[2017-06-29] MEDS: Ondansetron ODT 4 MG TAB.RAPDIS SL PRN ×2 (17:13→21:14)
--- NOTE | 2017-06-29 19:03 | General Surgery Progress Note ---
Date of Encounter: 06/29/17 Time of Encounter: 18:58 Subjective Patient reports: no new complaints Narrative: General Surgery - POD #25 Patient feeling well, No complaints Remains afebrile; heart rate 90-100; respirations 15 and 18; blood pressure 134/81. Lungs clear Abdomen: Soft, nontender; midline incision clean and dry. Staple line intact - will ask the nurses to remove enedina Leukocytosis improved; white count 11.5, hemoglobin 8.0 with hematocrit 25.4 collecting a fluid bolus administered last evening Sodium remains at 133; BUN 15, creatinine 1.09. Estimated GFR improved from 40-51 and reflective of the fluid bolus administered last evening. Impression: POD #25 s/p exploratory celiotomy, sigmoid colectomy with stapled colocolonic anastomosis for acutely perforated sigmoid diverticulitis. Clinically stable with resolving leukocytosis. Objective Vital Signs - Last 8 Hours Temp Pulse Resp BP Pulse Ox 06/29/17 11:39 98.1 F 92 15 134/81 97 Intake and Output 06/29/17 06/29/17 06/29/17 07:59 15:59 23:59 Intake Total 240 / 240 100 / 100 Output Total 250 / 250 Balance 240 / 240 -150 / -150 Intake: IV Fluids 120 / 120 100 / 100 Maxipime 2,000 MG In Water for 20 / 20 inj. (sterile) 20 ML @ 300 mls/ hr IVP Q12H [facility] Rx#:[id number] Flagyl Premix 500 MG/100 ML 500 100 / 100 100 / 100 mg In 100 ml @ 100 mls/hr IVPB Q8HR [facility] Rx#:[id number] Oral 120 / 120 0 / 0 Output: Urine 250 / 250 Other: Stool Size Moderate Stool Consistency soft Stool Color Brown # Voids 1 # Bowel Movements 1 Blood Glucose* 125 - Labs 06/29/17 04:25 06/29/17 04:25 Diabetes panel 06/29/17 Range/Units 04:25 Sodium 133 L (136-145) mEq/L Potassium 3.8 (3.5-5.1) mEq/L Chloride 103 (98-107) mEq/L Carbon Dioxide 24 (23-29) mEq/L BUN 15 (8-23) mg/dL Creatinine 1.09 (0.60-1.20) mg/dL Glucose 103 (70-105) mg/dL Calcium 7.8 L (8.6-10.3) mg/dL Calcium panel 06/29/17 Range/Units 04:25 Calcium 7.8 L (8.6-10.3) mg/dL Pituitary panel 06/29/17 Range/Units 04:25 Sodium 133 L (136-145) mEq/L Potassium 3.8 (3.5-5.1) mEq/L Chloride 103 (98-107) mEq/L Carbon Dioxide 24 (23-29) mEq/L BUN 15 (8-23) mg/dL Creatinine 1.09 (0.60-1.20) mg/dL Glucose 103 (70-105) mg/dL Calcium 7.8 L (8.6-10.3) mg/dL Adrenal panel 06/29/17 Range/Units 04:25 Sodium 133 L (136-145) mEq/L Potassium 3.8 (3.5-5.1) mEq/L Chloride 103 (98-107) mEq/L Carbon Dioxide 24 (23-29) mEq/L BUN 15 (8-23) mg/dL Creatinine 1.09 (0.60-1.20) mg/dL Glucose 103 (70-105) mg/dL Calcium 7.8 L (8.6-10.3) mg/dL - VTE Documentation of Mechanical Device: Intermittent pneumatic compression device Consult Discharge Plan - Plan Referrals: Kole Barksdale MD [Primary Care Provider] - Michele Machuca MD [Non-Partnered Physician] -
[2017-06-30] MEDS: MetroNIDAZOLE 500 MG/100 ML 500 MG/100 ML BAG IVPB SCH ×3 (00:09→17:07)
[2017-06-30] MEDS: traZODone 50 MG TABLET PO SCH ×2 (00:16→22:25)
[2017-06-30] MEDS: *HR* OxyCODONE/APAP 10/325 TABLET PO PRN ×5 (02:42→20:53)
[2017-06-30] MEDS: Ondansetron ODT 4 MG TAB.RAPDIS SL PRN ×5 (02:42→20:53)
[2017-06-30] MEDS: Cefepime HCl 2,000 MG in Water for inj. (sterile) 20 ML 20 ML IVP SCH ×2 (05:05→17:08)
[2017-06-30] MEDS: *HR* Heparin 5,000 UNIT/ML VIAL SQ SCH ×2 (05:06→18:58)
[2017-06-30 06:52] LABS: Hemoglobin 7.7 g/dL (11.5-15.4); Mean Corpuscular HGB Conc 30.8 g/dL (31.6-35.5); Mean Corpuscular Hemoglobin 28.8 pg (28.0-33.3); Mean Corpuscular Volume 93.6 fL (83.0-100.0); Mean Platelet Volume 8.6 fL (9.4-12.4); Platelet Count 301 K/mcL (140-400); Red Blood Count 2.67 M/mcL (3.82-4.97); Red Cell Distribution Width 15.9 % (11.5-14.5)
[2017-06-30 07:04] LABS: BUN/Creatinine Ratio 15 (6-26); Blood Urea Nitrogen 16 mg/dL (8-23); Carbon Dioxide 26 mEq/L (23-29); Chloride 103 mEq/L (98-107); Glucose 102 mg/dL (70-105); Osmolality,Calculated 279 (280-300); Potassium 3.8 mEq/L (3.5-5.1); Sodium 134 mEq/L (136-145); eGFR For African Americans > 60 (> 60); eGFR For Non-African Americans 50 (> 60)
[2017-06-30 08:14] LABS: Lymphocytes # 2.2 K/mcL (0.6-4.6); Monocytes # 0.6 K/mcL (0.0-1.3); Neutrophils # 6.4 K/mcL (1.6-8.9); Reactive Lymphocytes Present (Not Present)
[2017-06-30 08:15] LABS: Platelet Estimate Normal (Normal)
--- NOTE | 2017-06-30 10:07 | General Surgery Progress Note ---
Date of Encounter: 06/30/17 Time of Encounter: 09:55 Subjective Patient reports: no new complaints Narrative: General Surgery - POD #26 patient feeling well; no complaints continues to be afeb, MAXIMUM TEMPERATURE 99 5 overnight, hemodynamically stable abd soft, non tender - skin enedina removed Leukocytosis resolved 9.2; hemoglobin has fallen to 7.7, hematocrit 25.0; platelet count 301,000; differential remains within normal limits BUN, creatinine essentially unchanged; estimated GFR 50 Impression: Status stable Plan: PICC to be inserted today Arrangements for Home health and home administration of antibiotics in progress Anticipate discharge home today or tomorrow once the arrangements for continued home therapy completed Outpatient surgical follow-up will be arranged through my office. Objective Vital Signs - Last 8 Hours Temp Pulse Resp BP Pulse Ox 06/30/17 06:27 99.1 F 76 15 118/72 93 06/30/17 04:28 99.5 F 84 16 120/70 95 Intake and Output 06/29/17 06/30/17 06/30/17 23:59 07:59 15:59 Intake Total 100 / 100 360 / 360 480 / 480 Output Total 400 / 400 400 / 400 Balance -300 / -300 -40 / -40 480 / 480 Intake: IV Fluids 100 / 100 100 / 100 Flagyl Premix 500 MG/100 ML 500 100 / 100 100 / 100 mg In 100 ml @ 100 mls/hr IVPB Q8HR [facility] Rx#:[id number] Oral 260 / 260 480 / 480 Output: Urine 400 / 400 Urine/Stool Mix 400 / 400 Other: Meal Breakfast Percent of Meal Consumed 100% # Voids 1 0 Blood Glucose* 79 - Labs 06/30/17 06:42 06/30/17 06:42 Diabetes panel 06/30/17 Range/Units 06:42 Sodium 134 L (136-145) mEq/L Potassium 3.8 (3.5-5.1) mEq/L Chloride 103 (98-107) mEq/L Carbon Dioxide 26 (23-29) mEq/L BUN 16 (8-23) mg/dL Creatinine 1.10 (0.60-1.20) mg/dL Glucose 102 (70-105) mg/dL Calcium 8.0 L (8.6-10.3) mg/dL Calcium panel 06/30/17 Range/Units 06:42 Calcium 8.0 L (8.6-10.3) mg/dL Pituitary panel 06/30/17 Range/Units 06:42 Sodium 134 L (136-145) mEq/L Potassium 3.8 (3.5-5.1) mEq/L Chloride 103 (98-107) mEq/L Carbon Dioxide 26 (23-29) mEq/L BUN 16 (8-23) mg/dL Creatinine 1.10 (0.60-1.20) mg/dL Glucose 102 (70-105) mg/dL Calcium 8.0 L (8.6-10.3) mg/dL Adrenal panel 06/30/17 Range/Units 06:42 Sodium 134 L (136-145) mEq/L Potassium 3.8 (3.5-5.1) mEq/L Chloride 103 (98-107) mEq/L Carbon Dioxide 26 (23-29) mEq/L BUN 16 (8-23) mg/dL Creatinine 1.10 (0.60-1.20) mg/dL Glucose 102 (70-105) mg/dL Calcium 8.0 L (8.6-10.3) mg/dL - VTE Documentation of Mechanical Device: Intermittent pneumatic compression device Consult Discharge Plan - Plan Referrals: Kole Barksdale MD [Primary Care Provider] - Michele Machuca MD [Non-Partnered Physician] -
--- NOTE | 2017-06-30 10:17 | Discharge Summary ---
<Fly Rodriguez - Last Filed: 06/30/17 15:01> Date of Encounter: 06/30/17 Time of Encounter: 10:15 - Discharge Diagnosis (1) Perforated diverticulum Priority: Primary Status: Resolved (2) Anemia Priority: Secondary Status: Chronic Qualifiers: Anemia type: unspecified type Qualified Code(s): D64.9 - Anemia, unspecified (3) HTN (hypertension) Priority: Secondary Status: Chronic Qualifiers: Hypertension type: essential hypertension Qualified Code(s): I10 - Essential (primary) hypertension (4) Hypothyroidism Priority: Secondary Status: Chronic Qualifiers: Hypothyroidism type: acquired Qualified Code(s): E03.9 - Hypothyroidism, unspecified (5) Morbid obesity with BMI of 45.0-49.9, adult Priority: Secondary Status: Chronic (6) Hydronephrosis Priority: Secondary Status: Resolved Qualifiers: Hydronephrosis type: other Qualified Code(s): N13.39 - Other hydronephrosis (7) MRSA bacteremia Priority: Secondary Status: Resolved (8) Sepsis Priority: Secondary Status: Resolved Qualifiers: Sepsis type: methicillin resistant Staphylococcus aureus Qualified Code(s) : A41.02 - Sepsis due to Methicillin resistant Staphylococcus aureus (9) Acute respiratory failure with hypoxia Priority: Secondary Status: Resolved (10) UTI (urinary tract infection) Priority: Secondary Status: Resolved Qualifiers: Urinary tract infection type: acute cystitis Hematuria presence: without hematuria Qualified Code(s): N30.00 - Acute cystitis without hematuria (11) Abdominal abscess Priority: Secondary Status: Resolved (12) VRE bacteremia Priority: Secondary Status: Resolved (13) Depression Priority: Secondary Status: Chronic Qualifiers: Depression Type: unspecified Qualified Code(s): F32.9 - Major depressive disorder, single episode, unspecified - Discharge Medications Prescriptions: DAPTOmycin [Cubicin] 820 mg IVPB Q24H #6 vial Fluconazole 400 MG/200 ML [Diflucan Premix 400 MG/200 ML] 400 mg IVPB Q24H #6 bag Moxifloxacin HCl [Avelox] 400 mg PO Q24H #6 tablet Home Medications: Cyclobenzaprine [Flexeril] 10 mg PO TID PRN 05/29/17 [History] Ergocalciferol (VITAMIN D2) [Vitamin D2] 50,000 unit PO MO 05/29/17 [History] Furosemide [Lasix] 20 mg PO DAILY 05/29/17 [History] Levothyroxine [Synthroid] 50 mcg PO DAILY 05/29/17 [History] Losartan [Cozaar] 25 mg PO DAILY 05/29/17 [History] Oxycodone HCl/Acetaminophen [Percocet 10-325 mg Tablet] 1 each PO Q4-6H PRN [History] Potassium Chloride [K-Tab ER] 10 meq PO DAILY 05/29/17 [History] Ranitidine HCl [Acid Technology Lab Teacher] 150 mg PO BID 05/29/17 [History] Aspirin Enteric Coated [Aspirin EC] 81 mg PO DAILY 05/31/17 [History] DAPTOmycin [Cubicin] 820 mg IVPB Q24H #6 vial 06/30/17 [Rx] Fluconazole 400 MG/200 ML [Diflucan Premix 400 MG/200 ML] 400 mg IVPB Q24H #6 bag 06/30/17 [Rx] Moxifloxacin HCl [Avelox] 400 mg PO Q24H #6 tablet 06/30/17 [Rx] Allergies/Adverse Reactions: 3 Allergy/AdvReac Type Severity Reaction Status Date / Time Penicillins Allergy Hives Verified 05/29/17 08:23 Sulfa (Sulfonamide Allergy Hives Verified 05/29/17 08:23 Antibiotics) Date of admission: 05/29/17 14:31 Primary care physician: Kole Barksdale MD Consults: 06/02/17 15:02 Consult to Nutrition [CONS] Routine Comment: discussed with Rupinder Consulting Provider: NUTRITION Reason for Dietary Consult: TPN Start and Manage 06/02/17 15:23 Consult to Urology [CONS] Routine Consulting Provider: Urology Gore Reason for Consult: interval development right hydronephrosis - history perforated sigmoid diverticulitis with pelvic inflammation. Time Notified: 15:23 Call Completed: Yes 06/10/17 08:20 Consult to Infectious Diseases [CONS] Routine Consulting Provider: Infectious Disease Brianna Reason for Consult: MRSA bacteremia. Time Notified: 08:15 Call Completed: Yes 06/15/17 08:26 Consult to Occupational Therapy [CONS] Routine Comment: Evaluate, develop and implement POC Reason for Consult: may need home health/rehab upon discharge Consult to Physical Therapy [CONS] Routine Comment: Evaluate, develop and implement POC Reason for Consult: may need home health/rehab upon discharge Consult to Histology Teacher [CONS] Routine Reason for SW Consult: may need home health/rehab upon discharge 06/16/17 16:26 Consult to Interventional Radiology [CONS] Routine Consulting Provider: Radiology Interventional Cols Reason for Consult: enlarging intra abd abscess Time Notified: 16:26 Call Completed: Yes 06/18/17 11:07 Consult to Invasive Line Access Team [CONS] Routine Reason for Consult: Insertion PICC Line Type: PICC PICC line indications: residential Med/Antibiotic Time Notified: 11:08 Call Completed: Yes 06/25/17 07:31 Consult to Physician [CONS] Routine Consulting Provider: Yoan Maravilla Reason for Consult: Fungemia Call Completed: Yes 06/26/17 10:25 Consult to Invasive Line Access Team [CONS] Routine Reason for Consult: home IV antibiotics Line Type: EPIV 06/28/17 07:39 PICC LINE [Consult to Invasive Line Access Team] [CONS] Routine Reason for Consult: Prolonged antibiotics Line Type: PICC Discharging clinician: Fly Rodriguez Anticipated date of discharge: 06/30/17 - Patient Status Disposition: Home Health Service Condition: Fair Functional capacity at discharge: independent ambulation Overall status at discharge: patient is progressing back to baseline - Ambulatory Orders Ambulatory Orders: CT abd pelvis wo no iv no oral [CT] Time Frame: 07/04/17, Facility: [facility], Location: Radiology Creatine Kinase [CHEM] Time Frame: 07/05/17, Facility: [facility], Location: Lab Hepatic Panel [CHEM] Time Frame: 07/05/17, Facility: [facility], Location: Lab - Discharge Instructions Follow Up With: Kole Barksdale MD [Primary Care Provider] - 07/07/17 1:15 pm Michele Machuca MD [Non-Partnered Physician] - (Office will call with appointment. Thank you) Deepthi Mauricio MD [Partnered Physician] - 07/05/17 1:00 pm (Office will call with appointment. Thank you) Additional Instructions: Follow-up with your primary care provider within one week of discharge take all antibiotics as prescribed with home health follow-up with infectious disease follow-up with surgery return to the emergency department immediately if you develop fever, chills, chest pain, shortness of breath. - Diet and Activity Activity: increase activity as tolerated Diet: diabetic diet, low fat, low cholesterol Hospital course: Ms. Mitchell is a 61 year old female Seen and examined at bedside Hospital day 31 She is a 61 F who was admitted on 05/29/17 for management of perforated sigmoid diverticulitis and pneumoperitoneum. She has a PMH of HTN, Hypothyroidism, chronic pain syndrome on pain meds. Incidental finding of R hydronephrosis on CT scan. She was reviewed by surgery same day and initially managed conservatively. On , she went to surgery -and had Cystoscopy and right 4.8 x 26 cm ureteral stent placement and left ureteral catheter placement, as well as exploratory celiotomy, sigmoid colectomy with stapled colo colonic anastomosis. on POD 3, she developed new signs of sepsis with fever and leukocytosis, at that time, Repeat abdominal CT 06/02/17 showing 1.17 cm x 3.9 cm x 2.7 cm abscess inferior to the proximal sigmoid colon, increased inflammation of the mesentery, new minimal right hydronephrosis suggestive of uriritis. Antibiotics were broadened to include coverage for MRSA with Vancomycin added to her original regimen of cefepime and Flagyl. She was also transferred to the MICU for close monitoring She developed fever of 102.1 on 06/11/17 and primary team started patient on Micafungin 100mg daily. CT abdomen/pelvis same day showed increasing fluid collections along abdominal incision, and multiloculated fluid loculations throughout the abdomen and pelvis increased in size and organizing, decreased pneumoperitoneum 06/14/18 micafungin d/c and patient started on diflucan CT notes increased size of abscess to drain 10.7 cm within the abdomen. Worsening right hydronephrosis. An worsening seroma below incision measuring 4.1 x 5.6 cm. s/p percutaneous drainage of abdominal abscess by IR 06/17/2017: Cultures have grown MRSA, VRE, pansensitive Jayna albicans Since then, repeat blood cultures : 06/18/17 peripheral blood cultures grew yeast (2/2 cultures) and VRE (1/2 cultures) 06/19/17 peripheral cultures growing yeast and VRE -drawn from CVC 06/19/17 central venous catheter tip culture preliminary negative 06/20/17 blood cultures -source were peripheral, CVC and PICC line: GNR, C. galbrata 06/21/17 blood culture . C. galbrata from CVC 06/21/17: Peripehral access . 1 bottle prelim negative 06/23/17: peripheral blood culture negative so far 06/25/17: Negative no growth Repeat abdomen CT done 06/24 showed improvement Drain removed 06/24/17 PICC line was discontinued 06/24/17 EMILIE done 06/25 shows no vegetations Ophthamologist Dr. Maravilla did review the patient and recommended continued management, no evidence of endophthalmitis on dilated eye exam Patient's renal function slightly worsened on 06/28 but responded appropriately to IVF hydration, she also developed a new leukocytosis which is resolving. She is again seen and examined at the bedside today A new PICC line was placed 06/28/17 and I believe it is the right time to discharge the patient home on IV antibiotics as recommended by the Infectious disease team, she will need PTOT at home, as well as nursing for line care and infusion, appropriate follow ups with her PCP, Infectious disease tem and surgery. She was discharged in stable condition, and sent home with Daptomycin , Avalox, and Diflucan. She will get liver function tests and CPK, and CT abdomen and pelvis checked as outpatient. - Time Spent with Patient Total time spent providing and/or coordinating discharge services: Greater than 30 minutes - Constitutional Vitals: Temp Pulse Resp BP Pulse Ox 99.1 F 76 15 118/72 93 06/30/17 06:27 06/30/17 06:27 06/30/17 06:27 06/30/17 06:27 06/30/17 06:27 General appearance: Present: cooperative, A&O X 3, morbidly obese, pleasant, no acute distress, answers questions appropriately - Head Head exam: Present: atraumatic, normocephalic - Neck Neck exam general surgery: Present: supple, trachea midline - Respiratory Respiratory exam: Present: CTAB - Cardiovascular Cardiovascular exam: Present: RRR, +S1, +S2 - GI/Abdominal GI/Abdominal exam: Present: distended, normal bowel sounds, soft - Extremities Exam Extremities exam: Absent: cyanotic, pedal edema - Neurological Exam Neurological exam: Present: alert, oriented X3, no focal deficits - Psychiatric Psychiatric exam: Present: normal affect, normal mood - Skin Skin exam: Present: intact - VTE Documentation of Mechanical Device: Intermittent pneumatic compression device <Jayden Buckner - Last Filed: 06/30/17 19:09> Date of Encounter: 06/30/17 Date of admission: 05/29/17 14:31 Primary care physician: Kole Barksdale MD Consults: 06/02/17 15:02 Consult to Nutrition [CONS] Routine Comment: discussed with Rupinder Consulting Provider: NUTRITION Reason for Dietary Consult: TPN Start and Manage 06/02/17 15:23 Consult to Urology [CONS] Routine Consulting Provider: Urology Brianna Reason for Consult: interval development right hydronephrosis - history perforated sigmoid diverticulitis with pelvic inflammation. Time Notified: 15:23 Call Completed: Yes 06/10/17 08:20 Consult to Infectious Diseases [CONS] Routine Consulting Provider: Infectious Disease Gore Reason for Consult: MRSA bacteremia. Time Notified: 08:15 Call Completed: Yes 06/15/17 08:26 Consult to Occupational Therapy [CONS] Routine Comment: Evaluate, develop and implement POC Reason for Consult: may need home health/rehab upon discharge Consult to Physical Therapy [CONS] Routine Comment: Evaluate, develop and implement POC Reason for Consult: may need home health/rehab upon discharge Consult to Histology Teacher [CONS] Routine Reason for SW Consult: may need home health/rehab upon discharge 06/16/17 16:26 Consult to Interventional Radiology [CONS] Routine Consulting Provider: Radiology Interventional Cols Reason for Consult: enlarging intra abd abscess Time Notified: 16:26 Call Completed: Yes 06/18/17 11:07 Consult to Invasive Line Access Team [CONS] Routine Reason for Consult: Insertion PICC Line Type: PICC PICC line indications: hard tile setter apprentice Med/Antibiotic Time Notified: 11:08 Call Completed: Yes 06/25/17 07:31 Consult to Physician [CONS] Routine Consulting Provider: Yoan Maravilla Reason for Consult: Fungemia Call Completed: Yes 06/26/17 10:25 Consult to Invasive Line Access Team [CONS] Routine Reason for Consult: home IV antibiotics Line Type: EPIV 06/28/17 07:39 PICC LINE [Consult to Invasive Line Access Team] [CONS] Routine Reason for Consult: Prolonged antibiotics Line Type: PICC 06/30/17 18:01 Consult to Invasive Line Access Team [CONS] Routine Reason for Consult: home atb Line Type: Midline Hospital course: Ms. Mitchell is a 61 year old female - Time Spent with Patient Total time spent providing and/or coordinating discharge services: - Constitutional Vitals: Temp Pulse Resp BP Pulse Ox 98.9 F 90 15 106/68 93 06/30/17 10:12 06/30/17 10:12 06/30/17 10:12 06/30/17 10:12 06/30/17 10:12 - Attending Attestation I examined this patient and my medical decision-making was reviewed with the Resident Physician. I agree with the documented findings, disposition and treatment plan as described except to the extent set forth below.
--- NOTE | 2017-06-30 10:33 | Infectious Disease Progress No ---
Date of Encounter: 06/30/17 Time of Encounter: 08:30 - Assessment and Plan (1) Sepsis Current Visit: Yes Status: Resolved Resolved: Severe Sepsis 2/2 MRSA and VRE bacteremia with evidence of organ dysfunction Presented with 3 SIRS criteria Patient has been afebrile since 06/28. Tmax has been 99.5. Leukocytosis has resolved and is currently WBC 9.2 HR has decreased and patient is currently at 90 Secondary to complicated diverticulitis, MRSA bacteremia, hank glabrata bacteremia, VRE bacteremia, UTI 2nd to hank albicans and Hank glabrata Sepsis has resolved and patient will continue with IV antibiotics at discharge Patient will need: Diflucan 400 mg Q24Hr IV through 07/05/17 Daptomycin 820 mg Q24Hr IV through 07/05/17 Avelox 400 mg Q24Hr IV through 07/05/17 Would appreciate CBC, CMP, and CK on Wednesday 07/[address] abd/pelv on 07/04/17 with follow up with Dr. Mauricio in the office on 07/05 If she has continued to improve will consider switch to PO antibiotics Follow surgery recommendations Qualifiers: Sepsis type: methicillin resistant Staphylococcus aureus Qualified Code(s) : A41.02 - Sepsis due to Methicillin resistant Staphylococcus aureus (2) Perforated diverticulum Current Visit: Yes Status: Resolved Patient presented with acute onset of sharp abdominal pain. Has history of sigmoid diverticulitis. CT abdomen on 05/29 showed pneumoperitoneum with diverticulitis of sigmoid colon. Patient underwent exploratory celiotomy with sigmoid colectomy and colocolonic anastomosis on 06/04/17. Patient was also started on Cipro and Flagyl on 05/29. Patient became febrile 06/09, with worsening leukocytosis and antibiotics were broadened to vancomycin and cefepime and Flagyl Patient started on Micafungin 100mg daily. CT abdomen/pelvis 06/11 increasing fluid collections along abdominal incision, and multiloculated fluid loculations throughout the abdomen and pelvis increased in size and organizing, decreased pneumoperitoneum Patient started on diflucan 06/14 CT notes increased size of abscess to drain 10.7 cm within the abdomen Status post percutaneous drainage of abdominal abscess by IR 06/17/2017: Cultures have grown MRSA, VRE, pansensitive Hank albicans CT 06/19/2017 shows improvement of previous abdominal abscess. Continued small pockets of fluid collections throughout the abdomen and pelvis. Persistent pneumoperitoneum persistent moderate right hydronephrosis She had recurrent fever over weekend of jun 19-09/01 and cultures were redrawn as below: Repeat blood cultures: 06/18/17 peripheral blood cultures grew hank glabrata (2 /2 cultures) and VRE (1/2 cultures) 06/19/17 peripheral cultures growing hank glabrata / cvc blood cultures VRE and hank glabrata 06/19/17 central venous catheter tip culture growing yeast 06/20/17 peripheral blood culture growing Hank glabrata 06/20/17 PICC blood culture hank growth Miller and gram- negative rip (proteus sepcies) 06/21/17 peripheral blood culture negative for growth 06/21/17 R. PICC blood culture hank glabrata 06/23/17 blood cultures preliminarily negative 06/25/17 blood cultures preliminarily negative CT 06/24/17 shows complete resolution of intra-abdominal abscess following drain placement, decreased size of scattered fluid pockets, decreased air-fluid collection within the soft tissues underneath the incision. New G- bacteremia as noted above was likely contamination as it grew on 06/20 culture but not 06/21 or 06/19 Plan as above (3) Candidemia Current Visit: Yes Status: Acute as stated above patient has candidia glabrata and parapsilosis in blood Plan as above (4) VRE bacteremia Current Visit: Yes Status: Resolved 06/19/17 CVC blood culture + for VRE Patient was switched to daptomycin last weekend. CK is 19 repeat blood cultures collected 06/21 ans 06/23 are negative for VRE and 06/25 preliminarily negative as well EMILIE negative for endocarditis Plan as above (5) MRSA bacteremia Current Visit: Yes Status: Resolved Complicated MRSA bacteremia patient had left knee prosthetic joint Blood cultures from 06/08 from subclavian CVC and PICC line are positive for MRSA. Patient had repeat blood cultures drawn CvC, PICC and peripheral 06/10/17 all negative x6. PICC line culture of tip negative TTE: LVEF 65-70% mild tricuspid regurgiations, no vavular vegetations are noted EMILIE: LVEF 65%, normal LV size and function, right ventricle normal in size and systolic function, no pulmonary hypertension, no significant valvular dysfunction, no evidence for endocarditis visualized Repeat peripheral blood cultures 06/18/17, 06/19, 06/20, 07/19, 06/23, and 06/25 are negative for MRSA. Subclavian CVC has been removed. Plan as above (6) UTI (urinary tract infection) Current Visit: Yes Status: Resolved 06/13 urine culture Hank albicans and glabrata harry d/c Patient will be on Diflucan IV for candidemia as above Qualifiers: Urinary tract infection type: acute cystitis Hematuria presence: without hematuria Qualified Code(s): N30.00 - Acute cystitis without hematuria (7) Hypoxia Current Visit: Yes Status: Resolved stable patient requiring O2 supplementation since being admitted O2 requirement 1 L plan as per primary (8) Acute worsening of stage 3 chronic kidney disease Current Visit: Yes Status: Resolved Resolved (9) Hydronephrosis Current Visit: Yes Status: Resolved Discovered on CT abdomen 06/02 which showed right hydroureter with right ureteritis and bilateral pyelitis Underwent on 06/04/17 right ureteral stent placement and left ureteral catheter placement by urology. Patient has had 2 urine cultures which have been negative for growth. Urinalysis does not indicate any signs of infection. Repeat CT abdomen and pelvis on 06/07 showed improvement of right hydronephrosis and stable stent placement. Repeat CT at 06/16/2017 shows worsening right hydronephrosis. Urology reports no additional intervention needed at this point Qualifiers: Hydronephrosis type: other Qualified Code(s): N13.39 - Other hydronephrosis (10) Hypothyroidism Current Visit: Yes Status: Chronic As per primary Qualifiers: Hypothyroidism type: acquired Qualified Code(s): E03.9 - Hypothyroidism, unspecified (11) HTN (hypertension) Current Visit: Yes Status: Chronic controlled Qualifiers: Hypertension type: essential hypertension Qualified Code(s): I10 - Essential (primary) hypertension (12) DVT prophylaxis Current Visit: Yes Status: Acute heparin SQ - Subjective Interval history: Patient resting comfortably in bed this morning. She states that she is doing well and feels evening better than she did yesterday. She denies having any fevers/chills, diaphoresis, or rigors. She has no complaints of abdominal pain, shortness of breath, cough, nausea or vomiting.She reports feeling better than yesterday. Her WBC has continued to trend down to 9.2 and she has had a Tmax of 99.5. Infect Dis PN-Objective Data - Labs CBC & Chem 7: 06/30/17 06:42 06/30/17 06:42 Labs: Laboratory Results - last 24 hr 06/28/17 06/28/17 06/28/17 11:40 15:56 20:40 WBC RBC Hgb Hct MCV MCH MCHC RDW Plt Count MPV Seg Neutrophils % Lymphocytes % Monocytes % Neutrophils # Lymphocytes # Monocytes # Reactive Lymphocytes Platelet Estimate Sodium Potassium Chloride Carbon Dioxide BUN Creatinine Est GFR ( Amer) Est GFR (Non-Af Amer) BUN/Creatinine Ratio Glucose POC Glucose 102 H 99 H 112 H Calculated Osmolality Calcium 06/29/17 06/30/17 06/30/17 11:38 06:42 06:42 WBC 9.2 RBC 2.67 L Hgb 7.7 L Hct 25.0 L MCV 93.6 MCH 28.8 MCHC 30.8 L RDW 15.9 H Plt Count 301 MPV 8.6 L Seg Neutrophils % 70.0 Lymphocytes % 24.0 Monocytes % 6.0 Neutrophils # 6.4 Lymphocytes # 2.2 Monocytes # 0.6 Reactive Lymphocytes Present A Platelet Estimate Normal Sodium 134 L Potassium 3.8 Chloride 103 Carbon Dioxide 26 BUN 16 Creatinine 1.10 Est GFR ( Amer) > 60 Est GFR (Non-Af Amer) 50 L BUN/Creatinine Ratio 15 Glucose 102 POC Glucose 125 H Calculated Osmolality 279 L Calcium 8.0 L Cultures: Cultures 06/23/17 10:40 Blood Culture - Final Peripheral Venipuncture No growth. 06/20/17 10:15 Blood Culture - Final Peripheral Central Cath, Picc Gram Negative Rip Hank glabrata 06/21/17 05:49 Blood Culture - Final Peripheral Venipuncture No growth. 06/25/17 21:55 Blood Culture - Preliminary Peripheral Venipuncture No growth. 06/19/17 11:35 Catheter Tip Culture - Final Intravenous or Arterial Cath Hank glabrata 06/21/17 04:40 Blood Culture - Final Central Venous Catheter Hank glabrata 06/19/17 09:12 Blood Culture - Final Central Venous Catheter Vancomycin Resistant Enterococcus faecium Hank glabrata Hakn parapsilosis 06/20/17 10:06 Blood Culture - Final Peripheral Venipuncture Hank glabrata 06/18/17 08:41 Blood Culture - Final Peripheral Venipuncture Hank glabrata 06/19/17 00:26 Blood Culture - Final Peripheral Venipuncture Hank glabrata 06/19/17 00:20 Blood Culture - Final Peripheral Venipuncture Hank glabrata 06/18/17 10:44 Blood Culture - Final Peripheral Venipuncture Vancomycin Resistant Enterococcus faecium Hank glabrata 06/13/17 04:38 Urine Culture - Final Urine,[place] Hank glabrata Hank albicans 06/17/17 11:20 Body Fluid Culture - Final Other-Specify in Comments Hank albicans Methicillin Resistant S.aureus Enterococcus faecium 06/12/17 20:08 Blood Culture - Final Peripheral Venipuncture No growth. 06/10/17 05:45 Blood Culture - Final Peripheral Central Cath, Picc No growth. 06/10/17 05:41 Blood Culture - Final Peripheral Venipuncture No growth. 06/10/17 11:35 Blood Culture - Final Peripheral Central Cath, Picc No growth. 06/10/17 05:45 Blood Culture - Final Central Venous Catheter No growth. 06/10/17 05:46 Blood Culture - Final Peripheral Venipuncture No growth. 06/10/17 11:35 Blood Culture - Final Central Venous Catheter No growth. 06/10/17 16:40 Catheter Tip Culture - Final Intravenous or Arterial Cath No growth. 06/08/17 06:33 Blood Culture - Final Peripheral Central Cath, Picc Methicillin Resistant S.aureus 06/08/17 06:33 Blood Culture - Final Central Venous Catheter Methicillin Resistant S.aureus 06/08/17 04:20 Urine Culture - Final Urine,Clean [place] No significant growth. 06/03/17 09:25 Urine Culture - Final Urine,[place] No growth. 05/30/17 09:56 Blood Culture - Final Peripheral Venipuncture No growth. 05/30/17 10:10 Blood Culture - Final Peripheral Venipuncture No growth. Serology 06/21/17 06/20/17 06/19/17 Range/Units 04:40 10:15 16:10 Ur Specimen Adequacy Urine Color Yellow (Yellow) Urine Clarity Clear (Clear) Urine pH 6.5 (5.0-8.0) pH Units Ur Specific [place] 1.021 (1.010-1.025) Urine Protein 30 H (Neg-Trace) mg/dL Urine Glucose (UA) Normal (Normal) mg/dL Urine Ketones Negative (Negative) mg/dL Urine Blood Large H (Negative) Urine Nitrite Negative (Negative) Urine Bilirubin Negative (Negative) Urine Urobilinogen Normal (Normal) mg/dL Ur Leukocyte Esterase Negative (Negative) Urine Microscopic RBC 0-3 (0-3) per hpf Urine Microscopic WBC 0-3 (0-3) per hpf Ur Squamous Epith Cells Many H (None-Few) per lpf Urine Bacteria None Seen (None-Few) per hpf Hyaline Casts None Seen (None-Few) per lpf Ur Culture Indicated? NO (NO) A. baumannii (PCR) Not Detected Not Detected (Not Detect) Chlamy pneumoniae PCR (Not Detect) Adenovirus (PCR) (Not Detect) B. pertussis DNA (PCR) (Not Detect) B.parapertussis DNA PCR (Not Detect) Hank albicans (PCR) Not Detected Not Detected (Not Detect) C. glabrata (PCR) DETECTED A DETECTED A (Not Detect) C. krusei (PCR) Not Detected Not Detected (Not Detect) C. parapsilosis (PCR) Not Detected Not Detected (Not Detect) C. tropicalis (PCR) Not Detected Not Detected (Not Detect) Coronavirus OC43 (PCR) (Not Detect) Coronavirus HKU1 (PCR) (Not Detect) Coronavirus 229E (PCR) (Not Detect) Coronavirus NL63 (PCR) (Not Detect) Enterobacteriac sp PCR Not Detected DETECTED A (Not Detect) E. cloacae complex PCR Not Detected Not Detected (Not Detect) Enterococcus sp PCR Not Detected Not Detected (Not Detect) E. coli (PCR) Not Detected Not Detected (Not Detect) H. influenzae (PCR) Not Detected Not Detected (Not Detect) Human Metapneumovir PCR (Not Detect) Influenza A (H1) PCR (Not Detect) Influ A (H1N1/09) PCR (Not Detect) Influenza A (H3) PCR (Not Detect) Influenza A Untype (PCR) (Not Detect) Influenza Type B (PCR) (Not Detect) Klebsiella oxytoca PCR Not Detected Not Detected (Not Detect) Klebsiella pneumoniae Not Detected Not Detected (Not Detect) List. monocytogenes PCR Not Detected Not Detected (Not Detect) M.pneumoniae DNA (PCR) (Not Detect) N. meningitidis (PCR) Not Detected Not Detected (Not Detect) Parainfluenza 1 (PCR) (Not Detect) Parainfluenza 2 (PCR) (Not Detect) Parainfluenza 3 (PCR) (Not Detect) Parainfluenza 4 (PCR) (Not Detect) Proteus species (PCR) Not Detected DETECTED A (Not Detect) RSV (PCR) (Not Detect) Entero/Rhino (PCR) (Not Detect) Serratia marcescens PCR Not Detected Not Detected (Not Detect) Staphylococcus sp PCR Not Detected Not Detected (Not Detect) Staph aureus (PCR) Not Detected Not Detected (Not Detect) mecA-Methicil Res Gene Not Detected Not Detected (Not Detect) Streptococcus sp PCR Not Detected Not Detected (Not Detect) Group A Strep DNA Not Detected Not Detected (Not Detect) Group B Strep (PCR) Not Detected Not Detected (Not Detect) Strep pneumoniae (PCR) Not Detected Not Detected (Not Detect) P. aeruginosa (PCR) Not Detected Not Detected (Not Detect) Bryant/B-Vanco Res Genes Not Detected Not Detected (Not Detect) KPC (blaKPC) Detect PCR Not Detected Not Detected (Not Detect) 06/19/17 06/19/17 06/19/17 Range/Units 09:12 09:12 09:12 Ur Specimen Adequacy Urine Color (Yellow) Urine Clarity (Clear) Urine pH (5.0-8.0) pH Units Ur Specific [place] (1.010-1.025) Urine Protein (Neg-Trace) mg/dL Urine Glucose (UA) (Normal) mg/dL Urine Ketones (Negative) mg/dL Urine Blood (Negative) Urine Nitrite (Negative) Urine Bilirubin (Negative) Urine Urobilinogen (Normal) mg/dL Ur Leukocyte Esterase (Negative) Urine Microscopic RBC (0-3) per hpf Urine Microscopic WBC (0-3) per hpf Ur Squamous Epith Cells (None-Few) per lpf Urine Bacteria (None-Few) per hpf Hyaline Casts (None-Few) per lpf Ur Culture Indicated? (NO) A. baumannii (PCR) Not Detected Not Detected (Not Detect) Chlamy pneumoniae PCR Not Detected (Not Detect) Adenovirus (PCR) Not Detected (Not Detect) B. pertussis DNA (PCR) Not Detected (Not Detect) B.parapertussis DNA PCR Not Detected (Not Detect) Hank albicans (PCR) Not Detected Not Detected (Not Detect) C. glabrata (PCR) DETECTED A DETECTED A (Not Detect) C. krusei (PCR) Not Detected Not Detected (Not Detect) C. parapsilosis (PCR) Not Detected DETECTED A (Not Detect) C. tropicalis (PCR) Not Detected Not Detected (Not Detect) Coronavirus OC43 (PCR) Not Detected (Not Detect) Coronavirus HKU1 (PCR) Not Detected (Not Detect) Coronavirus 229E (PCR) Not Detected (Not Detect) Coronavirus NL63 (PCR) Not Detected (Not Detect) Enterobacteriac sp PCR Not Detected Not Detected (Not Detect) E. cloacae complex PCR Not Detected Not Detected (Not Detect) Enterococcus sp PCR Not Detected DETECTED A (Not Detect) E. coli (PCR) Not Detected Not Detected (Not Detect) H. influenzae (PCR) Not Detected Not Detected (Not Detect) Human Metapneumovir PCR Not Detected (Not Detect) Influenza A (H1) PCR Not Detected (Not Detect) Influ A (H1N1/09) PCR Not Detected (Not Detect) Influenza A (H3) PCR Not Detected (Not Detect) Influenza A Untype (PCR) Not Detected (Not Detect) Influenza Type B (PCR) Not Detected (Not Detect) Klebsiella oxytoca PCR Not Detected Not Detected (Not Detect) Klebsiella pneumoniae Not Detected Not Detected (Not Detect) List. monocytogenes PCR Not Detected Not Detected (Not Detect) M.pneumoniae DNA (PCR) Not Detected (Not Detect) N. meningitidis (PCR) Not Detected Not Detected (Not Detect) Parainfluenza 1 (PCR) Not Detected (Not Detect) Parainfluenza 2 (PCR) Not Detected (Not Detect) Parainfluenza 3 (PCR) Not Detected (Not Detect) Parainfluenza 4 (PCR) Not Detected (Not Detect) Proteus species (PCR) Not Detected Not Detected (Not Detect) RSV (PCR) Not Detected (Not Detect) Entero/Rhino (PCR) Not Detected (Not Detect) Serratia marcescens PCR Not Detected Not Detected (Not Detect) Staphylococcus sp PCR Not Detected Not Detected (Not Detect) Staph aureus (PCR) Not Detected Not Detected (Not Detect) mecA-Methicil Res Gene N/A N/A (Not Detect) Streptococcus sp PCR Not Detected Not Detected (Not Detect) Group A Strep DNA Not Detected Not Detected (Not Detect) Group B Strep (PCR) Not Detected Not Detected (Not Detect) Strep pneumoniae (PCR) Not Detected Not Detected (Not Detect) P. aeruginosa (PCR) Not Detected Not Detected (Not Detect) Bryant/B-Vanco Res Genes N/A DETECTED A (Not Detect) KPC (blaKPC) Detect PCR N/A N/A (Not Detect) 06/19/17 06/18/17 06/18/17 Range/Units 00:20 10:44 08:41 Ur Specimen Adequacy Urine Color (Yellow) Urine Clarity (Clear) Urine pH (5.0-8.0) pH Units Ur Specific [place] (1.010-1.025) Urine Protein (Neg-Trace) mg/dL Urine Glucose (UA) (Normal) mg/dL Urine Ketones (Negative) mg/dL Urine Blood (Negative) Urine Nitrite (Negative) Urine Bilirubin (Negative) Urine Urobilinogen (Normal) mg/dL Ur Leukocyte Esterase (Negative) Urine Microscopic RBC (0-3) per hpf Urine Microscopic WBC (0-3) per hpf Ur Squamous Epith Cells (None-Few) per lpf Urine Bacteria (None-Few) per hpf Hyaline Casts (None-Few) per lpf Ur Culture Indicated? (NO) A. baumannii (PCR) Not Detected Not Detected Not Detected (Not Detect) Chlamy pneumoniae PCR (Not Detect) Adenovirus (PCR) (Not Detect) B. pertussis DNA (PCR) (Not Detect) B.parapertussis DNA PCR (Not Detect) Hank albicans (PCR) Not Detected Not Detected Not Detected (Not Detect) C. glabrata (PCR) DETECTED A Not Detected DETECTED A (Not Detect ) C. krusei (PCR) Not Detected Not Detected Not Detected (Not Detect) C. parapsilosis (PCR) Not Detected Not Detected Not Detected (Not Detect) C. tropicalis (PCR) Not Detected Not Detected Not Detected (Not Detect) Coronavirus OC43 (PCR) (Not Detect) Coronavirus HKU1 (PCR) (Not Detect) Coronavirus 229E (PCR) (Not Detect) Coronavirus NL63 (PCR) (Not Detect) Enterobacteriac sp PCR Not Detected Not Detected Not Detected (Not Detect) E. cloacae complex PCR Not Detected Not Detected Not Detected (Not Detect) Enterococcus sp PCR Not Detected DETECTED A Not Detected (Not Detect) E. coli (PCR) Not Detected Not Detected Not Detected (Not Detect) H. influenzae (PCR) Not Detected Not Detected Not Detected (Not Detect) Human Metapneumovir PCR (Not Detect) Influenza A (H1) PCR (Not Detect) Influ A (H1N1/09) PCR (Not Detect) Influenza A (H3) PCR (Not Detect) Influenza A Untype (PCR) (Not Detect) Influenza Type B (PCR) (Not Detect) Klebsiella oxytoca PCR Not Detected Not Detected Not Detected (Not Detect) Klebsiella pneumoniae Not Detected Not Detected Not Detected (Not Detect) List. monocytogenes PCR Not Detected Not Detected Not Detected (Not Detect) M.pneumoniae DNA (PCR) (Not Detect) N. meningitidis (PCR) Not Detected Not Detected Not Detected (Not Detect) Parainfluenza 1 (PCR) (Not Detect) Parainfluenza 2 (PCR) (Not Detect) Parainfluenza 3 (PCR) (Not Detect) Parainfluenza 4 (PCR) (Not Detect) Proteus species (PCR) Not Detected Not Detected Not Detected (Not Detect) RSV (PCR) (Not Detect) Entero/Rhino (PCR) (Not Detect) Serratia marcescens PCR Not Detected Not Detected Not Detected (Not Detect) Staphylococcus sp PCR Not Detected Not Detected Not Detected (Not Detect) Staph aureus (PCR) Not Detected Not Detected Not Detected (Not Detect) mecA-Methicil Res Gene Not Detected N/A N/A (Not Detect) Streptococcus sp PCR Not Detected Not Detected Not Detected (Not Detect) Group A Strep DNA Not Detected Not Detected Not Detected (Not Detect) Group B Strep (PCR) Not Detected Not Detected Not Detected (Not Detect) Strep pneumoniae (PCR) Not Detected Not Detected Not Detected (Not Detect) P. aeruginosa (PCR) Not Detected Not Detected Not Detected (Not Detect) Bryant/B-Vanco Res Genes Not Detected DETECTED A N/A (Not Detect) KPC (blaKPC) Detect PCR Not Detected N/A N/A (Not Detect) 06/08/17 06/08/17 Range/Units 06:33 04:20 Ur Specimen Adequacy Urine Color Dark Yellow (Yellow) Urine Clarity Clear (Clear) Urine pH 6.0 (5.0-8.0) pH Units Ur Specific [place] > 1.030 H (1.010-1.025) Urine Protein 100 H (Neg-Trace) mg/dL Urine Glucose (UA) 100 H (Normal) mg/dL Urine Ketones Negative (Negative) mg/dL Urine Blood Large H (Negative) Urine Nitrite Negative (Negative) Urine Bilirubin Negative (Negative) Urine Urobilinogen Normal (Normal) mg/dL Ur Leukocyte Esterase Small H (Negative) Urine Microscopic RBC (0-3) per hpf Urine Microscopic WBC (0-3) per hpf Ur Squamous Epith Cells (None-Few) per lpf Urine Bacteria (None-Few) per hpf Hyaline Casts (None-Few) per lpf Ur Culture Indicated? YES A (NO) A. baumannii (PCR) Not Detected (Not Detect) Chlamy pneumoniae PCR (Not Detect) Adenovirus (PCR) (Not Detect) B. pertussis DNA (PCR) (Not Detect) B.parapertussis DNA PCR (Not Detect) Hank albicans (PCR) Not Detected (Not Detect) C. glabrata (PCR) Not Detected (Not Detect) C. krusei (PCR) Not Detected (Not Detect) C. parapsilosis (PCR) Not Detected (Not Detect) C. tropicalis (PCR) Not Detected (Not Detect) Coronavirus OC43 (PCR) (Not Detect) Coronavirus HKU1 (PCR) (Not Detect) Coronavirus 229E (PCR) (Not Detect) Coronavirus NL63 (PCR) (Not Detect) Enterobacteriac sp PCR Not Detected (Not Detect) E. cloacae complex PCR Not Detected (Not Detect) Enterococcus sp PCR Not Detected (Not Detect) E. coli (PCR) Not Detected (Not Detect) H. influenzae (PCR) Not Detected (Not Detect) Human Metapneumovir PCR (Not Detect) Influenza A (H1) PCR (Not Detect) Influ A (H1N1/09) PCR (Not Detect) Influenza A (H3) PCR (Not Detect) Influenza A Untype (PCR) (Not Detect) Influenza Type B (PCR) (Not Detect) Klebsiella oxytoca PCR Not Detected (Not Detect) Klebsiella pneumoniae Not Detected (Not Detect) List. monocytogenes PCR Not Detected (Not Detect) M.pneumoniae DNA (PCR) (Not Detect) N. meningitidis (PCR) Not Detected (Not Detect) Parainfluenza 1 (PCR) (Not Detect) Parainfluenza 2 (PCR) (Not Detect) Parainfluenza 3 (PCR) (Not Detect) Parainfluenza 4 (PCR) (Not Detect) Proteus species (PCR) Not Detected (Not Detect) RSV (PCR) (Not Detect) Entero/Rhino (PCR) (Not Detect) Serratia marcescens PCR Not Detected (Not Detect) Staphylococcus sp PCR DETECTED A (Not Detect) Staph aureus (PCR) DETECTED A (Not Detect) mecA-Methicil Res Gene DETECTED A (Not Detect) Streptococcus sp PCR Not Detected (Not Detect) Group A Strep DNA Not Detected (Not Detect) Group B Strep (PCR) Not Detected (Not Detect) Strep pneumoniae (PCR) Not Detected (Not Detect) P. aeruginosa (PCR) Not Detected (Not Detect) Bryant/B-Vanco Res Genes Not Detected (Not Detect) KPC (blaKPC) Detect PCR Not Detected (Not Detect) Exam - Constitutional Vitals: Temp Pulse Resp BP Pulse Ox 98.9 F 90 15 106/68 93 06/30/17 10:12 06/30/17 10:12 06/30/17 10:12 06/30/17 10:12 06/30/17 10:12 - Additional findings Additional findings: General: Cooperative, pleasant, no acute distress, alert and oriented 3, answers questions appropriately HEENT: Normocephalic, atraumatic, neck supple, trachea midline, Conjunctiva pink , sclera anicteric, oral mucosa moist Respiratory: No accessory muscle usage, clear to auscultation bilaterally, no wheezes/rhonchi/rales appreciated Cardiovascular: Regular rate and rhythm, S1 and S2 present, no murmurs/rubs/ gallops/clicks appreciated GI/abdominal: Nondistended, mild tenderness to palpation, enedina from midline celiotomy, incision clean, dry, no induration or drainage, soft, normal bowel sounds, no peritoneal signs Extremities: No calf tenderness, noncyanotic, mild nonpitting pedal edema appreciated, warm, lower extremity pulses palpable and symmetrical, no warmth or tenderness around joints Neurological: Alert and oriented 3, no facial droop, no focal deficits Skin: Dry, intact, normal color - VTE Documentation of Mechanical Device: Intermittent pneumatic compression device Consult Discharge Plan - Plan Additional Instructions: Follow-up with your primary care provider within one week of discharge take all antibiotics as prescribed with home health follow-up with infectious disease follow-up with surgery return to the emergency department immediately if you develop fever, chills, chest pain, shortness of breath. Referrals: Kole Barksdale MD [Primary Care Provider] - 07/07/17 1:15 pm Michele Gallegos MD [Non-Partnered Physician] - (Office will call with appointment. Thank you) Deepthi Mauricio MD [Partnered Physician] - 07/05/17 1:00 pm (Office will call with appointment. Thank you) Prescriptions: DAPTOmycin [Cubicin] 820 mg IVPB Q24H #6 vial Fluconazole 400 MG/200 ML [Diflucan Premix 400 MG/200 ML] 400 mg IVPB Q24H #6 bag Moxifloxacin HCl [Avelox] 400 mg PO Q24H #6 tablet - Attending Attestation I examined this patient and my medical decision-making was reviewed with the Resident Physician. I agree with the documented findings, disposition and treatment plan as described except to the extent set forth below. discussed with Dr. gallegos, continue current treatment. Patient cant get IV avelox for logistic home health agency issues will switch to oral avelox since it has similar bioavailability
--- NOTE | 2017-06-30 14:32 | Physician Discharge Referral ---
<Fly Rodriguez - Last Filed: 06/30/17 14:30> Home Health/Hosp Referral Info Transfer to: Home Health Provider in Charge Post Discharge: PCP - Diagnosis (1) Perforated diverticulum Priority: Primary Status: Resolved (2) Anemia Priority: Secondary Status: Chronic (3) HTN (hypertension) Priority: Secondary Status: Chronic (4) Hypothyroidism Priority: Secondary Status: Chronic (5) Morbid obesity with BMI of 45.0-49.9, adult Priority: Secondary Status: Chronic (6) Hydronephrosis Priority: Secondary Status: Resolved (7) MRSA bacteremia Priority: Secondary Status: Resolved (8) Sepsis Priority: Secondary Status: Resolved (9) Acute respiratory failure with hypoxia Priority: Secondary Status: Resolved (10) UTI (urinary tract infection) Priority: Secondary Status: Resolved (11) Abdominal abscess Priority: Secondary Status: Resolved (12) VRE bacteremia Priority: Secondary Status: Resolved (13) Depression Priority: Secondary Status: Chronic - Respiratory Orders Smoking Cessation: Smoking cessation has been advised. For more information, call the [place] Quit Line at 8-268-DKDONOW. - Diet/Nutrition Diet/Nutrition Orders: Cardiac - Activity Activity Orders: Ambulate - Services Needed Following services are medically necessary services: Nursing, Home Health Aide, Physical Therapy, Occupational Therapy - Transfer Medications Prescriptions: DAPTOmycin [Cubicin] 820 mg IVPB Q24H #6 vial Fluconazole 400 MG/200 ML [Diflucan Premix 400 MG/200 ML] 400 mg IVPB Q24H #6 bag Moxifloxacin HCl [Avelox] 400 mg PO Q24H #6 tablet Home Medications: Cyclobenzaprine [Flexeril] 10 mg PO TID PRN 05/29/17 [History] Ergocalciferol (VITAMIN D2) [Vitamin D2] 50,000 unit PO MO 05/29/17 [History] Furosemide [Lasix] 20 mg PO DAILY 05/29/17 [History] Levothyroxine [Synthroid] 50 mcg PO DAILY 05/29/17 [History] Losartan [Cozaar] 25 mg PO DAILY 05/29/17 [History] Oxycodone HCl/Acetaminophen [Percocet 10-325 mg Tablet] 1 each PO Q4-6H PRN [History] Potassium Chloride [K-Tab ER] 10 meq PO DAILY 05/29/17 [History] Ranitidine HCl [Acid Night Cleaner] 150 mg PO BID 05/29/17 [History] Aspirin Enteric Coated [Aspirin EC] 81 mg PO DAILY 05/31/17 [History] DAPTOmycin [Cubicin] 820 mg IVPB Q24H #6 vial 06/30/17 [Rx] Fluconazole 400 MG/200 ML [Diflucan Premix 400 MG/200 ML] 400 mg IVPB Q24H #6 bag 06/30/17 [Rx] Moxifloxacin HCl [Avelox] 400 mg PO Q24H #6 tablet 06/30/17 [Rx] Allergies/Adverse Reactions: 3 Allergy/AdvReac Type Severity Reaction Status Date / Time Penicillins Allergy Hives Verified 05/29/17 08:23 Sulfa (Sulfonamide Allergy Hives Verified 05/29/17 08:23 Antibiotics) Certification: Further, I certify that my clinical findings support that this patient is homebound (i.e. absences from home require considerable and taxing effort and are for medical reasons or druze services or infrequently or short duration when for other reasons) because: Homebound Reason: Patient requires assistance of a person or device to safely leave home Attestation: My signature below is to certify that this patient is under my care and that I, or nurse practitioner, or a physician's assistant teacher primary working with me, has a face-to -face encounter with this patient. <Jayden Buckner - Last Filed: 06/30/17 19:08> - Respiratory Orders Smoking Cessation: Smoking cessation has been advised. For more information, call the [place] [employer] Quit Line at 8-982-HMOZ-NOW. Certification: Further, I certify that my clinical findings support that this patient is homebound (i.e. absences from home require considerable and taxing effort and are for medical reasons or druze services or infrequently or short duration when for other reasons) because: Attestation: My signature below is to certify that this patient is under my care and that I, or nurse practitioner, or a physician's assistant teacher primary working with me, has a face-to -face encounter with this patient. - Attending Attestation I examined this patient and my medical decision-making was reviewed with the Resident Physician. I agree with the documented findings, disposition and treatment plan as described except to the extent set forth below.
[2017-06-30] MEDS: DAPTOMYCIN IVPB SCH (16:16)
[2017-06-30] MEDS: SODIUM CHLORIDE 0.9% IVPB SCH (16:16)
[2017-06-30] MEDS: *HR* LORazepam 0.5 MG TABLET PO PRN (16:16)
[2017-06-30] MEDS: Fluconazole 400 MG/200 ML 400 MG/200 ML BAG IVPB SCH (18:57)
[2017-06-30 19:37] VITALS: BP 118/72
== END 2017-06-30 22:42 | disposition home health service (06) | DRG 329 ==
LOC: 3BNU 08:21 → EMEROO 08:21 → 3BNU 12:02 → SUATTDRO 14:31 → 2NENU 05-30 17:06 → ICNU 06-08 12:42 → 3ANU 06-14 15:29
PROVIDERS: ADMIT Registered Nurse; ATTEND Internal Medicine
PROC: IRDRAIN (2017-06-17 12:00)

== ENCOUNTER 2020-11-13 16:23 | Inpatient (IN) ==
[~2020-11-13 16:23] MED LIST: *HR* Etomidate 20 MG/10 ML AMPUL IVP ONE; *HR* Midazolam HCl 2 MG/2 ML VIAL IVP ONE; *HR* Midazolam HCl 5 MG/5 ML VIAL IVP ONE
[2020-11-13] MEDS ORDERED: Aspirin 81 MG TAB.CHEW PO ONE (16:31)
[2020-11-13] MEDS ORDERED: *HR* LORazepam 2 MG/ML VIAL IVP ONE (16:31)
[2020-11-13] MEDS ORDERED: *HR* Ticagrelor 90 MG TABLET PO ONE (16:51)
[2020-11-13] MEDS ORDERED: *HR* Heparin 5,000 UNIT/ML VIAL SQ ONE (16:51)
[2020-11-13] MEDS ORDERED: *HR* Heparin 10,000 UNIT/10 ML VIAL ONE (17:14)
[2020-11-13] MEDS ORDERED: 0.9 % Sodium Chloride 1,000 ML ONE ×2 (17:14→17:18)
[2020-11-13] MEDS ORDERED: Heparin 1,000 UNITS/500 mL 500 ML ONE ×2 (17:14→18:39)
[2020-11-13] MEDS ORDERED: Nitroglycerin 1,000 MCG/5 ML VIAL IV ONE (17:15)
[2020-11-13] MEDS ORDERED: ISOVUE-370 200 ML INFUS..BTL ONE (17:15)
[2020-11-13] MEDS ORDERED: 0.9 % Sodium Chloride 1,000 ML IVC ONE (17:17)
[2020-11-13] MEDS ORDERED: *HR* Midazolam HCl 2 MG/2 ML VIAL ONE (17:25)
[2020-11-13] MEDS ORDERED: Tirofiban 12.5 MG/250ML 0 MG/0 ML BAG ONE (17:25)
[2020-11-13] MEDS ORDERED: *HR* FentaNYL (PF) 100 MCG/2 ML VIAL ONE (17:25)
[2020-11-13] MEDS ORDERED: 0.9 % Sodium Chloride 250 ML ONE (17:32)
[2020-11-13] MEDS ORDERED: *HR* Norepinephrine 4 MG/4 ML VIAL IVC ONE (17:33)
[2020-11-13] MEDS ORDERED: *HR* Midazolam HCl 50 MG/10 ML VIAL IVC ONE (17:49)
[2020-11-13] MEDS ORDERED: *HR* FentaNYL (PF) 1,000 MCG/20 ML VIAL ONE (17:49)
[2020-11-13] MEDS ORDERED: Perflutren Lipid Microsphere 1.3 ML in 0.9 % Sodium Chloride 8.7 ML IVP PRN (18:28)
[2020-11-13 18:41] LABS: Basophils # 0.1 K/mcL (0.0-0.2); Basophils % 0.6 %; Eosinophils % 0.2 %; Hematocrit 40.4 % (35.3-44.9); Hemoglobin 13.8 g/dL (11.5-15.4); Immature Granulocytes % 0.3 % (0-4); Lymphocytes # 4.2 K/mcL (0.6-4.6); Mean Corpuscular HGB Conc 34.2 g/dL (31.6-35.5); Mean Corpuscular Hemoglobin 32.9 pg (28.0-33.3); Mean Corpuscular Volume 96.4 fL (83.0-100.0); Mean Platelet Volume 9.3 fL (9.4-12.4); Monocytes # 0.8 K/mcL (0.0-1.3); Monocytes % 5.7 %; Neutrophils # 9.3 K/mcL (1.6-8.9); Platelet Count 209 K/mcL (140-400); Red Blood Count 4.19 M/mcL (3.82-4.97); Red Cell Distribution Width 13.8 % (11.5-14.5); Segmented Neutrophils % 64.2 %; White Blood Count 14.5 K/mcL (4.3-11.1)
[2020-11-13 18:48] LABS: INR 1.4; Prothrombin Time 15.5 Seconds (9.4-12.1)
[2020-11-13 18:51] LABS: Activated Partial Thrombo Time 73.9 Seconds (26.0-36.0)
[2020-11-13 19:40] LABS: ABG Base Excess -5 mEq/L (-2 to 3); ABG HCO3 20 mEq/L (21-27); ABG Oxygen Saturation 100 % (95-98); ABG PCO2 35 mmHg (35-45); ABG PH 7.36 pH Units (7.32-7.45); ABG PO2 252 mmHg (85-104); ABG TCO2 21 mEq/L (20-26); Blood Gas Modality ASSIST CONTROL; Blood Gas VT 400 cc
[2020-11-13] MEDS: FentaNYL (PF) 1,000 MCG/100 ML IV.SOLN IVC SCH (19:45)
[2020-11-13] MEDS: Norepinephrine 4 MG/254 ML IV.SOLN IVC SCH (19:45)
[2020-11-13 19:59] LABS: Calcium 8.6 mg/dL (8.6-10.3); Magnesium 1.7 mg/dL (1.6-2.6); Potassium 4.2 mEq/L (3.5-5.1); Troponin I 6.93 ng/mL (< 0.04)
[2020-11-13] MEDS ORDERED: Artificial Tears SOLN 15 ML BOTTLE BOTH EYES PRN (20:28)
[2020-11-13 21:11] LABS: ABG Base Excess -5 mEq/L (-2 to 3); ABG HCO3 19 mEq/L (21-27); ABG Oxygen Saturation 95 % (95-98); ABG PCO2 35 mmHg (35-45); ABG PH 7.36 pH Units (7.32-7.45); ABG PO2 80 mmHg (85-104); ABG TCO2 20 mEq/L (20-26); Blood Gas Modality ASSIST CONTROL; Blood Gas VT 400 cc
[2020-11-13] MEDS: Midazolam HCl 50 MG/100 ML IV.SOLN IVC SCH (21:35)
[2020-11-13] MEDS ORDERED: Artificial Tears SOLN 15 ML BOTTLE ONE (21:48)
[2020-11-13] MEDS ORDERED: Chlorhexidine Rinse 15 ML MOUTHWASH ONE (21:48)
[2020-11-13] MEDS: Chlorhexidine Rinse 15 ML MOUTHWASH MM SCH (21:50)
[2020-11-13] MEDS ORDERED: *HR* Midazolam HCl 5 MG/5 ML VIAL IVP PRN (22:38)
[2020-11-13] MEDS ORDERED: *HR* Midazolam HCl 5 MG/5 ML VIAL IVP ONE (22:56)
[2020-11-13] MEDS: Artificial Tears SOLN 15 ML BOTTLE BOTH EYES SCH (22:58)
[2020-11-14] MEDS ORDERED: Acetaminophen IV 500 MG/50 ML BAG IVPB ONE (00:16)
[2020-11-14] MEDS ORDERED: *HR* Heparin 5,000 UNIT/ML VIAL IVP PRN ×2 (02:35)
[2020-11-14] MEDS ORDERED: *HR* Heparin 5,000 UNIT/ML VIAL IVP ONE (02:35)
[2020-11-14] MEDS ORDERED: Heparin 25,000UNIT/250ML 1/2NS 25,000 UNIT/250 ML IV.SOLN IVC SCH (02:45)
[2020-11-14 03:12] LABS: Basophils # 0.1 K/mcL (0.0-0.2); Basophils % 0.5 %; Eosinophils % 0.2 %; Hematocrit 40.9 % (35.3-44.9); Hemoglobin 13.2 g/dL (11.5-15.4); Immature Granulocytes % 0.5 % (0-4); Lymphocytes # 3.3 K/mcL (0.6-4.6); Lymphocytes % 24.6 %; Mean Corpuscular HGB Conc 32.3 g/dL (31.6-35.5); Mean Corpuscular Hemoglobin 31.7 pg (28.0-33.3); Mean Corpuscular Volume 98.3 fL (83.0-100.0); Mean Platelet Volume 9.1 fL (9.4-12.4); Monocytes % 7.8 %; Neutrophils # 8.8 K/mcL (1.6-8.9); Platelet Count 152 K/mcL (140-400); Red Blood Count 4.16 M/mcL (3.82-4.97); Red Cell Distribution Width 14.1 % (11.5-14.5); Segmented Neutrophils % 66.4 %; White Blood Count 13.2 K/mcL (4.3-11.1)
[2020-11-14 03:24] LABS: INR 1.3
[2020-11-14 03:27] LABS: Activated Partial Thrombo Time 25.9 Seconds (26.0-36.0); Heparin anti-factor XA UFH < 0.04 IU/mL (0.30-0.70)
[2020-11-14] MEDS: FentaNYL (PF) 1,000 MCG/100 ML IV.SOLN IVC SCH (03:31)
[2020-11-14] MEDS: Midazolam HCl 50 MG/100 ML IV.SOLN IVC SCH (03:32)
[2020-11-14 03:34] LABS: Calcium 8.8 mg/dL (8.6-10.3); Potassium 4.2 mEq/L (3.5-5.1)
[2020-11-14] MEDS: Artificial Tears SOLN 15 ML BOTTLE BOTH EYES SCH ×6 (04:19→23:39)
[2020-11-14 04:39] LABS: ABG Base Excess -3 mEq/L (-2 to 3); ABG HCO3 22 mEq/L (21-27); ABG Oxygen Saturation 97 % (95-98); ABG PCO2 38 mmHg (35-45); ABG PH 7.37 pH Units (7.32-7.45); ABG PO2 93 mmHg (85-104); ABG TCO2 23 mEq/L (20-26); Blood Gas VT 400 cc
[2020-11-14 04:43] LABS: Troponin I 9.3 ng/mL (< 0.04)
[2020-11-14] MEDS: Pantoprazole 40 MG VIAL IVP SCH (08:48)
[2020-11-14] MEDS: Chlorhexidine Rinse 15 ML MOUTHWASH MM SCH ×2 (08:48→20:29)
[2020-11-14] MEDS ORDERED: *HR* Atropine Sulfate 1 MG/10 ML SYRINGE ONE (10:42)
[2020-11-14 11:27] LABS: Albumin 3.4 g/dL (3.5-5.7); Albumin/Globulin Ratio 1.1 (1.1-2.2); Bilirubin,Direct 0.5 mg/dL (0.0-0.2); Bilirubin,Indirect 1.5 mg/dL (0.0-1.0); Globulin 3.1 g/dL (2.4-3.5); Total Protein 6.5 g/dL (6.4-8.9)
[2020-11-14] MEDS: *HR* Heparin 5,000 UNIT/ML VIAL SQ SCH ×2 (12:53→23:00)
[2020-11-14] MEDS: Aspirin Enteric Coated 81 MG Tablet PO SCH (12:53)
[2020-11-14] MEDS ORDERED: Furosemide 40 MG/4 ML VIAL IVP ONE (13:31)
[2020-11-14] MEDS: Dexmedetomidine HCl 400 MCG/100 ML MLS IVC SCH (14:52)
[2020-11-14] MEDS: Norepinephrine 4 MG/254 ML IV.SOLN IVC SCH (17:24)
[2020-11-15] MEDS: Artificial Tears SOLN 15 ML BOTTLE BOTH EYES SCH ×3 (03:17→11:39)
[2020-11-15] MEDS: *HR* Heparin 5,000 UNIT/ML VIAL SQ SCH ×3 (05:38→20:34)
[2020-11-15] MEDS ORDERED: Furosemide 40 MG/4 ML VIAL IVP SCH ×2 (08:00→17:00)
[2020-11-15] MEDS: Pantoprazole 40 MG VIAL IVP SCH (08:26)
[2020-11-15] MEDS: Chlorhexidine Rinse 15 ML MOUTHWASH MM SCH (08:27)
[2020-11-15] MEDS: Dexmedetomidine HCl 400 MCG/100 ML MLS IVC SCH (08:27)
[2020-11-15] MEDS ORDERED: PARoxetine 10 MG TABLET PO SCH (09:00)
[2020-11-15] MEDS: Aspirin Enteric Coated 81 MG Tablet PO SCH (09:02)
[2020-11-15] MEDS: Furosemide 40 MG/4 ML VIAL IVP SCH (17:08)
[2020-11-15] MEDS: carvediloL 6.25 MG TABLET PO SCH (17:08)
[2020-11-15] MEDS: Magnesium Oxide 400 MG TABLET PO SCH (20:34)
[2020-11-16] MEDS: *HR* Heparin 5,000 UNIT/ML VIAL SQ SCH (05:21)
[2020-11-16 06:25] LABS: Basophils % 0.4 %; Eosinophils # 0.3 K/mcL (0.0-0.6); Eosinophils % 3.5 %; Hematocrit 38.7 % (35.3-44.9); Hemoglobin 13.3 g/dL (11.5-15.4); Immature Granulocytes % 0.4 % (0-4); Lymphocytes # 3.9 K/mcL (0.6-4.6); Lymphocytes % 41.9 %; Mean Corpuscular HGB Conc 34.4 g/dL (31.6-35.5); Mean Corpuscular Hemoglobin 32.7 pg (28.0-33.3); Mean Corpuscular Volume 95.1 fL (83.0-100.0); Mean Platelet Volume 9.7 fL (9.4-12.4); Monocytes # 0.6 K/mcL (0.0-1.3); Monocytes % 6.8 %; Neutrophils # 4.4 K/mcL (1.6-8.9); Platelet Count 156 K/mcL (140-400); Red Blood Count 4.07 M/mcL (3.82-4.97); Red Cell Distribution Width 13.2 % (11.5-14.5); White Blood Count 9.3 K/mcL (4.3-11.1)
[2020-11-16 06:47] LABS: Calcium 8.8 mg/dL (8.6-10.3); Potassium 3.2 mEq/L (3.5-5.1)
[2020-11-16] MEDS: Furosemide 40 MG/4 ML VIAL IVP SCH (07:46)
[2020-11-16] MEDS: carvediloL 6.25 MG TABLET PO SCH (07:48)
[2020-11-16] MEDS: Magnesium Oxide 400 MG TABLET PO SCH (07:48)
[2020-11-16] MEDS ORDERED: Potassium Chloride Elixir 20 MEQ/15 ML UDC PO ONE (08:57)
[2020-11-16] MEDS ORDERED: PARoxetine 10 MG TABLET PO SCH (09:00)
[2020-11-16] MEDS ORDERED: Pantoprazole 40 MG VIAL IVP SCH (09:00)
[2020-11-16] MEDS ORDERED: Aspirin Enteric Coated 81 MG Tablet PO SCH (09:00)
[2020-11-16 12:44] VITALS: BP 100/70; PULSE 70; O2SAT 95
[2020-11-16 13:17] VITALS: TEMP 98
[2020-11-17] MEDS ORDERED: Furosemide 20 MG TABLET PO SCH (09:00)
== END 2020-11-16 12:45 | disposition home or self-care (01) | DRG 280 ==
LOC: EMEROOARM 16:23 → ICNU 18:30
PROVIDERS: ADMIT Internal Medicine Cardiovascular Disease; ATTEND Internal Medicine Cardiovascular Disease